=== PATIENT | male | born 1935 | race Caucasian/White ===

== ENCOUNTER → 2017-05-25 | Day surgery (SDC) | payer BC ==
[2017-05-19 11:51] VITALS: Ht 172.7 cm; Wt 81.8 kg
[~2017-05-25] VITALS: Ht 172.7 cm; Wt 81.8 kg
[~2017-05-25] MED LIST: 500ML BSS 0.3ML EPI 1:1000PF IRRIG ONE; ACETAMINOPHEN 325 MG TAB PO PRN; AMVISC PLUS 0.8ML SYRINGE INT OCU ONE; ATEN50TA8 PO; ATROPINE SULFATE 0.1 MG/ML 5ML SYR IV PRN; BSS FLUSH ONE; CETI10TA84 PO; CZR50 PO; EpHEDrine SULFATE INJ 50 MG/ML AMP IV PRN; EpINEphrine INJ 1MG/ML AMP 1 MG/ML AMP ONE; FENTANYL CITRATE INJ 50 MCG/1 ML 2 ML VIAL IV PRN; FENTANYL CITRATE INJ 50 MCG/1 ML 2 ML VIAL ONE; FLEC50TA20 PO; FLUMAZENIL 0.1 MG/1 ML 10 ML VIAL IV PRN; HYDROmorphone INJ 2 MG/ML SYR/VIAL IV PRN; HYT/2 PO; LABETALOL HCL IV 5 MG/ML 20ML IV PRN; LACTATED RINGER'S 1000ML 500 ML IV SCH; LIDOCAINE 3.5% OPH GEL PER APPLICATION CHARGE ONE; LIDOCAINE HCL 1% MPF 2 ML VIAL ONE; MEPERIDINE HCL 25 MG/ML CARP IV PRN; MIDAZOLAM HCL 1 MG/ML 2ML VIAL ONE; NALOXONE HCL 0.4 MG/1 ML VIAL/CARP IV PRN; OCUCOAT 1 ML SOLN IO ONE; ONDANSETRON INJ 2 MG/ML 2 ML VIAL IV PRN; PHENYLEPHRINE 100MCG/ML 5ML SYR IV PRN; POVIDONE-IODINE OP SOLN 30 ML BTL ONE; PROPARACAINE 0.5% OP SOLN PER DROP CHARGE OPR SCH; TOBRAMYCIN/DEXAMETHASONE OPH OINT PER APPLN CHARGE ONE
[2017-05-25] MEDS: PHENYLEPHRINE HCL 2.5% OP SOLN PER DROP CHARGE OPR SCH ×2 (09:47→09:52)
[2017-05-25] MEDS: TROPICAMIDE 1% OP SOLN PER DROP CHARGE OPR SCH ×2 (09:48→09:53)
[2017-05-25] MEDS: CYCLOPENTOLATE HCL 1% OP SOLN PER DROP CHARGE OPR SCH ×2 (09:49→09:54)
[2017-05-25] MEDS: KETOROLAC 0.5% OP SOLN PER DROP CHARGE OPR SCH ×2 (09:50→09:55)
[2017-05-25] MEDS: GATIFLOXACIN OP SOLN PER DROP CHARGE OPR SCH ×2 (09:51→09:56)
--- NOTE | 2017-05-25 10:15 | History & Physical Bridge - [place] ---
H&P Re-Evaluation Bridge Note: I have examined the patient, reviewed the History & Physical and in the interval since the performance of the History & Physical I have noted the following changes of clinical significance: Diagnosis: Right Cataract Procedure: Right Cataract Removal with Lens Implant No changes noted
--- NOTE | 2017-05-25 10:59 | Discharge Instructions-SurgCtr ---
Discharge Instructions Date of Service May 25, 2017. Visit Reason for Visit: Cataract Right Eye Discharge Discharge Diagnosis / Problem: cataract Discharge Goals Goal(s): Improve function Activity Recommendations Activity Limitations: per Instructions/Follow-up section Anesthesia . Post Anesthesia Instructions: If you have had General Anesthesia or IV Sedation: * Do not drive today. * Resume driving when surgeon permits. * Do not make important decisions or sign legal documents today. * Call surgeon for: 1. Temperature elevations greater than 101 degrees F. 2. Uncontrollable pain. 3. Excessive bleeding. 4. Persistent nausea and vomiting. 5. Medication intolerance (nausea, vomiting or rash). * For nausea and vomiting use only clear liquids such as: tea, soda, bouillon until nausea subsides, then gradually increase diet as tolerated. * If you have any concerns or questions, call your surgeon's office. If physician is unavailable and it is an emergency, call 911 or go to the nearest emergency room. . Instructions / Follow-Up Instructions / Follow-Up ACTIVITY RECOMMENDATIONS: * No strenuous lifting, jogging or running for 4 days * No swimming or yard work for 1 week. * Limited bending is permitted, such as putting on shoes. RETURN TO SCHOOL/WORK: No work until seen by physician in office. MEDICATIONS: Resume previous medications unless instructed otherwise by your surgeon. This includes eye drops for glaucoma. Zymaxid/Gatifloxacin (steven cap) - one drop every 2 hours until bedtime Nevanac/Ilevro/Prolensa/Ketorolac (corrigan cap) - one drop every 4 hours until bedtime Prednisolone/Durezol (white/pink cap, SHAKE WELL) - one drop every 2 hours until bedtime Starting tomorrow - all 3 drops every 4 hours until seen in the office Optive drops - as needed for discomfort SPECIAL CARE INSTRUCTIONS: * Wear eyeshield when sleeping, for four nights. * You may wear your own glasses or sunglasses while awake. * You may read or watch TV * You may shower and wash your face, but be gentle around the eye and pat dry. * Blurry vision and mild irritation are normal. * Call office if pain is more severe or vision becomes dark at . FOLLOW UP VISIT: Follow-up with Dr Johnston tomorrow. Diet Recommendations Home Diet: resume previous diet Pending Studies Studies pending at discharge: no Medical Emergencies . Who to Call and When: Medical Emergencies: If at any time you feel your situation is an emergency, please call 911 immediately. . Non-Emergent Contact Non-Emergency issues call your: Waiter/[employer] . . "Provider Documentation" section prepared by Benji Johnston. .
--- NOTE | 2017-05-25 10:59 | [facility] Operative Report ---
Operative Report Date of Service May 25, 2017. Operative Report 1. PREOPERATIVE DIAGNOSIS: Cataract of the right eye. 2. POSTOPERATIVE DIAGNOSIS: Same. 3. PROCEDURE: Phacoemulsification with intraocular lens implantation of the right eye. SURGEON: Dr. Benji Johnston. ANESTHESIA: Topical Lidocaine gel, 1% Non- Preserved intracameral Lidocaine, and monitored intravenous sedation. INDICATIONS FOR THE PROCEDURE: The patient is a 81 - year-old male with a history of cataract of the right eye causing significant visual impairment. The details of the proposed procedure were explained to the patient who asked appropriate questions and following discussion of all risks, benefits and alternatives agreed to have the procedure done. 4. OPERATION AND FINDINGS: DESCRIPTION OF PROCEDURE: After informed consent was obtained, the patient was brought to the Operating Room at the [facility]. The patient was placed in a supine position and then the right eye was prepped and draped in the usual sterile fashion for intraocular surgery. A drop of topical Lidocaine gel was placed in the operative eye. A wire lid speculum was then placed in the fornices. A corneal paracentesis was then created temporally. The Non-Preserved Lidocaine was then instilled into the anterior chamber. The anterior chamber was then pressurized with viscoelastic. A 2.0 mm clear corneal incision was then created temporally. A cystotome was inserted into the anterior chamber and used to create a tear in the anterior lens capsule. This capsular tear was then used to create a small flap and the flap was dragged in a counterclockwise direction in order to create a continuous curvilinear capsulorrhexis. Hydrodissection was accomplished with balanced salt solution. Phacoemulsification of the lens nucleus was then performed in a standard [id number] technique. The phaco time was 34 seconds with an average power of 7 %. The remaining cortical material was removed using irrigation aspiration. The capsular bag was then filled with viscoelastic. A Bausch [employer] Lomb MI60L +22.0 diopters lens was then loaded into the injector and injected into the capsular bag. The remaining viscoelastic was removed with the irrigation aspiration handpiece. The wound was hydrated and then checked and found to be watertight. The intraocular pressure was checked and found to be adequate. The wire lid speculum was removed and the patient's face was cleaned and dried. TobraDex ointment was placed in the inferior fornix. The patient was discharged to the Recovery Room having tolerated the procedure well. There were no complications. The patient will be seen tomorrow in the office for follow-up. I attest to the content of the Intraoperative Record and any orders documented therein. Any exceptions are noted below.
[2017-05-25 11:05] VITALS: TEMP 36.6
--- NOTE | 2017-05-25 11:10 | Anesthesia Progress Nt - [facility] ---
Anesthesia Post Op Note Date & Time May 25, 2017 at 11:10 Vital Signs Pain Intensity: 0 Vital Signs Past 12 Hours Date Time Temp Pulse Resp B/P (MAP) Pulse Ox O2 Delivery O2 Flow Rate FiO2 05/25/17 09:40 36.6 65 16 156/83 (107) 97 Room Air Notes Mental Status: alert / awake / arousable, participated in evaluation Pt Amnestic to Procedure: Yes Nausea / Vomiting: adequately controlled Pain: adequately controlled Airway Patency, RR, SpO2: stable & adequate BP & HR: stable & adequate Hydration State: stable & adequate Anesthetic Complications: no major complications apparent
[2017-05-25 11:28] VITALS: BP 156/67; PULSE 59; O2SAT 95
== END | disposition home or self-care (01) ==
LOC: X.SURG 09:09
PROVIDERS: ATTEND Ophthalmology
DX: H26.9 Unspecified cataract (principal); I48.91 Unspecified atrial fibrillation; I12.9 Hypertensive chronic kidney disease with stage 1 through stage 4 chronic kidney disease, or unspecified chronic kidney disease; N18.3 Chronic kidney disease, stage 3 (moderate); E78.5 Hyperlipidemia, unspecified; I67.2 Cerebral atherosclerosis; Z86.73 Personal history of transient ischemic attack (TIA), and cerebral infarction without residual deficits; H81.10 Benign paroxysmal vertigo, unspecified ear; K58.9 Irritable bowel syndrome, unspecified; N52.9 Male erectile dysfunction, unspecified; M10.9 Gout, unspecified; N32.3 Diverticulum of bladder; M35.3 Polymyalgia rheumatica; Z86.718 Personal history of other venous thrombosis and embolism; Z79.899 Other long term (current) drug therapy

== ENCOUNTER → 2017-06-22 | Day surgery (SDC) | payer BC ==
[2017-06-01 09:53] VITALS: Ht 172.7 cm; Wt 81.8 kg
[~2017-06-22] VITALS: Ht 172.7 cm; Wt 81.8 kg
[~2017-06-22] MED LIST changes: -FENTANYL CITRATE INJ 50 MCG/1 ML 2 ML VIAL IV PRN; -FENTANYL CITRATE INJ 50 MCG/1 ML 2 ML VIAL ONE; -FLUMAZENIL 0.1 MG/1 ML 10 ML VIAL IV PRN; -HYDROmorphone INJ 2 MG/ML SYR/VIAL IV PRN; -LABETALOL HCL IV 5 MG/ML 20ML IV PRN; -MEPERIDINE HCL 25 MG/ML CARP IV PRN; -NALOXONE HCL 0.4 MG/1 ML VIAL/CARP IV PRN; -ONDANSETRON INJ 2 MG/ML 2 ML VIAL IV PRN; -PHENYLEPHRINE 100MCG/ML 5ML SYR IV PRN; +PHENYLEPHRINE HCL 10% OP SOLN PER DROP CHARGE OPL SCH; +PROPARACAINE 0.5% OP SOLN PER DROP CHARGE OPL SCH; -PROPARACAINE 0.5% OP SOLN PER DROP CHARGE OPR SCH
[2017-06-22] MEDS: PHENYLEPHRINE HCL 2.5% OP SOLN PER DROP CHARGE OPL SCH ×2 (10:56→11:02)
[2017-06-22] MEDS: TROPICAMIDE 1% OP SOLN PER DROP CHARGE OPL SCH ×2 (10:57→11:03)
[2017-06-22] MEDS: CYCLOPENTOLATE HCL 1% OP SOLN PER DROP CHARGE OPL SCH ×2 (10:59→11:04)
[2017-06-22] MEDS: KETOROLAC 0.5% OP SOLN PER DROP CHARGE OPL SCH ×2 (11:00→11:05)
[2017-06-22] MEDS: GATIFLOXACIN OP SOLN PER DROP CHARGE OPL SCH ×2 (11:01→11:11)
--- NOTE | 2017-06-22 11:30 | History & Physical Bridge - [place] ---
H&P Re-Evaluation Bridge Note: I have examined the patient, reviewed the History & Physical and in the interval since the performance of the History & Physical I have noted the following changes of clinical significance: No changes noted
--- NOTE | 2017-06-22 12:11 | [facility] Operative Report ---
Operative Report Date of Service Jun 22, 2017. Operative Report 1. PREOPERATIVE DIAGNOSIS: Cataract of the left eye. 2. POSTOPERATIVE DIAGNOSIS: Same. 3. PROCEDURE: Phacoemulsification with intraocular lens implantation of the left eye. SURGEON: Dr. Benji Johnston. ANESTHESIA: Topical Lidocaine gel, 1% Non- Preserved intracameral Lidocaine, and monitored intravenous sedation. INDICATIONS FOR THE PROCEDURE: The patient is a 81 - year-old male with a history of cataract of the left eye causing significant visual impairment. The details of the proposed procedure were explained to the patient who asked appropriate questions and following discussion of all risks, benefits and alternatives agreed to have the procedure done. 4. OPERATION AND FINDINGS: DESCRIPTION OF PROCEDURE: After informed consent was obtained, the patient was brought to the Operating Room at the [facility]. The patient was placed in a supine position and then the left eye was prepped and draped in the usual sterile fashion for intraocular surgery. A drop of topical Lidocaine gel was placed in the operative eye. A wire lid speculum was then placed in the fornices. A corneal paracentesis was then created temporally. The Non-Preserved Lidocaine was then instilled into the anterior chamber. The anterior chamber was then pressurized with viscoelastic. A 2.0 mm clear corneal incision was then created temporally. A cystotome was inserted into the anterior chamber and used to create a tear in the anterior lens capsule. This capsular tear was then used to create a small flap and the flap was dragged in a counterclockwise direction in order to create a continuous curvilinear capsulorrhexis. Hydrodissection was accomplished with balanced salt solution. Phacoemulsification of the lens nucleus was then performed in a standard [id number] technique. The phaco time was 35 seconds with an average power of 9 %. The remaining cortical material was removed using irrigation aspiration. The capsular bag was then filled with viscoelastic. A Bausch & Lomb MI60L +22.0 diopters lens was then loaded into the injector and injected into the capsular bag. The remaining viscoelastic was removed with the irrigation aspiration handpiece. The wound was hydrated and then checked and found to be watertight. The intraocular pressure was checked and found to be adequate. The wire lid speculum was removed and the patient's face was cleaned and dried. TobraDex ointment was placed in the inferior fornix. The patient was discharged to the Recovery Room having tolerated the procedure well. There were no complications. The patient will be seen tomorrow in the office for follow-up. I attest to the content of the Intraoperative Record and any orders documented therein. Any exceptions are noted below.
--- NOTE | 2017-06-22 12:11 | Discharge Instructions-SurgCtr ---
Discharge Instructions Date of Service Jun 22, 2017. Visit Reason for Visit: Cataract Left Eye Discharge Discharge Diagnosis / Problem: cataract Discharge Goals Goal(s): Improve function Activity Recommendations Activity Limitations: per Instructions/Follow-up section Anesthesia . Post Anesthesia Instructions: If you have had General Anesthesia or IV Sedation: * Do not drive today. * Resume driving when surgeon permits. * Do not make important decisions or sign legal documents today. * Call surgeon for: 1. Temperature elevations greater than 101 degrees F. 2. Uncontrollable pain. 3. Excessive bleeding. 4. Persistent nausea and vomiting. 5. Medication intolerance (nausea, vomiting or rash). * For nausea and vomiting use only clear liquids such as: tea, soda, bouillon until nausea subsides, then gradually increase diet as tolerated. * If you have any concerns or questions, call your surgeon's office. If physician is unavailable and it is an emergency, call 911 or go to the nearest emergency room. . Instructions / Follow-Up Instructions / Follow-Up ACTIVITY RECOMMENDATIONS: * No strenuous lifting, jogging or running for 4 days * No swimming or yard work for 1 week. * Limited bending is permitted, such as putting on shoes. RETURN TO SCHOOL/WORK: No work until seen by physician in office. MEDICATIONS: Resume previous medications unless instructed otherwise by your surgeon. This includes eye drops for glaucoma. Zymaxid/Gatifloxacin (steven cap) - one drop every 2 hours until bedtime Nevanac/Ilevro/Prolensa/Ketorolac (corrigan cap) - one drop every 4 hours until bedtime Prednisolone/Durezol (white/pink cap, SHAKE WELL) - one drop every 2 hours until bedtime Starting tomorrow - all 3 drops every 4 hours until seen in the office Optive drops - as needed for discomfort SPECIAL CARE INSTRUCTIONS: * Wear eyeshield when sleeping, for four nights. * You may wear your own glasses or sunglasses while awake. * You may read or watch TV * You may shower and wash your face, but be gentle around the eye and pat dry. * Blurry vision and mild irritation are normal. * Call office if pain is more severe or vision becomes dark at . FOLLOW UP VISIT: Follow-up with Dr Johnston tomorrow. Diet Recommendations Home Diet: resume previous diet Procedures Procedures Performed: Left Cataract Phacoemulsification With Intraocular Lens Implant Pending Studies Studies pending at discharge: no Medical Emergencies . Who to Call and When: Medical Emergencies: If at any time you feel your situation is an emergency, please call 911 immediately. . Non-Emergent Contact Non-Emergency issues call your: Tomato Pul[employer] Operator . . "Provider Documentation" section prepared by Benji Johnston. .
[2017-06-22 12:13] VITALS: TEMP 36.3
--- NOTE | 2017-06-22 12:35 | Anesthesia Progress Nt - [facility] ---
Anesthesia Post Op Note Date & Time Jun 22, 2017 at 12:35 Vital Signs Pain Intensity: 0 Vital Signs Past 12 Hours Date Time Temp Pulse Resp B/P (MAP) Pulse Ox O2 Delivery O2 Flow Rate FiO2 06/22/17 12:13 36.3 55 18 149/76 (100) 95 Room Air 06/22/17 10:46 36.8 61 22 160/82 (108) 97 Room Air Notes Mental Status: alert / awake / arousable, participated in evaluation Pt Amnestic to Procedure: Yes Nausea / Vomiting: adequately controlled Pain: adequately controlled Airway Patency, RR, SpO2: stable & adequate BP & HR: stable & adequate Hydration State: stable & adequate Anesthetic Complications: no major complications apparent
[2017-06-22 12:40] VITALS: BP 148/67; PULSE 56; O2SAT 96
== END | disposition home or self-care (01) ==
LOC: X.SURG 10:32
PROVIDERS: ATTEND Ophthalmology
DX: H26.9 Unspecified cataract (principal); H53.8 Other visual disturbances; Z96.1 Presence of intraocular lens; I12.9 Hypertensive chronic kidney disease with stage 1 through stage 4 chronic kidney disease, or unspecified chronic kidney disease; N18.3 Chronic kidney disease, stage 3 (moderate)

== ENCOUNTER 2022-12-15 15:44 | Inpatient (IN) ==
[2022-12-15] MEDS ORDERED: SODIUM CHLORIDE 0.9% 1000ML 1,000 ML IV ONE (18:42)
[2022-12-15 18:47] LABS: Basophils # (auto) 0.02 K/uL (0-0.2); Basophils % (auto) 0.7 %; Eosinophils # (auto) 0.01 K/uL (0-0.50); Eosinophils % (auto) 0.3 %; Hematocrit (blood only) 45.8 % (42.0-52.0); Hemoglobin 16.6 g/dl (14.0-18.0); Lymphocytes # (auto) 1.05 K/uL (1.2-3.4); Lymphocytes % (auto) 35.5 %; Mean Corpuscular Hemoglobin 34.4 pg (25.0-34.0); Mean Corpuscular Hgb Conc 36.2 g/dL (32.0-36.0); Mean Corpuscular Volume 94.8 fL (80.0-100.0); Mean Platelet Volume 9.4 fL (9.4-12.4); Monocytes # (auto) 0.15 K/uL (0.11-0.59); Monocytes % (auto) 5.1 %; Neutrophils # (auto) 1.73 K/uL (1.40-6.50); Neutrophils % (auto) 58.4 %; Platelet Count 258 K/uL (130-400); RDW Coefficient of Variation 14.6 % (11.5-14.5); Red Blood Count 4.83 M/uL (4.70-6.10); White Blood Count 2.96 K/ul (4.8-10.8)
[2022-12-15 19:05] LABS: Base Excess VBG -7.5 mEq/L; HCO3 VBG 19 mmol/L; Oxygen Saturation VBG 60.8 %; PCO2 VBG 40 mmHg (38-50); PO2 VBG 39 mmHg; pH VBG 7.28 (7.36-7.41)
[2022-12-15 19:11] LABS: Albumin Level 4.7 gm/dl (3.4-5.0); BUN Creatinine Ratio 29.5 (10-20); Bilirubin,Total 1.3 mg/dl (0.2-1.0); Creatinine Clr Calc Pharmacy 32.5 ml/min; Est GFR (African American) 48.2 ml/min; Est GFR (Non-African American) 41.6 ml/min; Globulin 2.3 gm/dl (2.5-4.0); Magnesium 2.4 mg/dl (1.7-2.4); Phosphorus 4.3 mg/dl (2.5-4.9); Potassium 5.2 mmol/L (3.5-5.1)
[2022-12-15 19:25] LABS: Influenza A virus by PCR Negative (Neg); Influenza B virus by PCR Negative (Neg); RSV by PCR Negative (Neg); SARS CoV2 RNA(COVID-19) Ceph NEGATIVE (Negative)
[2022-12-15] MEDS ORDERED: NovoLIN-R INSULIN PER UNIT CHARGE SC STA (20:10)
--- NOTE | 2022-12-15 21:14 | Emergency Department Note ---
Impression & Plan Acute hyperglycemia, Ketoacidosis, Acute dehydration, Hyperkalemia ED Provider Note INFORMANT: Patient ED PROVIDER(S): Amador Mendez DO CHIEF COMPLAINT: Hyperglycemia, weight loss, weakness PLAN: Disposition: Admission Outpatient prescription management: none Discussion with: I spoke with the hospitalist, who will see the patient for admission/observation and further evaluation and consultation. MEDICAL DECISION MAKING: This is a 87-year-old male who presents to the ED with a chief complaint of increasing weakness, fatigue, difficulty walking, hyperglycemia. The patient was diagnosed with diabetes type 2 in October. He was originally placed on metformin and then recently about couple weeks ago placed on Jardiance. The patient continues losing weight. He is lost about 20 to 30 pounds over the past month or so. He has become increasingly weak. Family brought him in because of concerns about that. Over the past couple of days he has had nausea and vomiting as well. The patient's physical exam does reveal a smell of ketones on the patient's breath. This is concerning for dehydration. Otherwise his exam reveals no focal deficits. He is venous blood gas shows an acidosis with a pH of 7.28. CO2 is 40. Anion gap is 20. Bicarb 17. These are suggestive of a metabolic acidosis. His white blood cell count is 2.96. Glucose is 307. BUN is 44 suggesting dehydration. Creatinine is 1.49. Potassium is 5.2. EKG shows a sinus rhythm. The patient was given IV fluids during his ED stay. He was also given 4 units of subcu insulin. I did speak with hospitalist about the patient for further inpatient evaluation and care. Triage Nursing notes reviewed. Vital Signs: reviewed Prior /Outside records reviewed: none Differential diagnosis: Differential includes dehydration, electrolyte abnormality, generalized weakness, HH NK, infection, other. Diagnostics, as interpreted by me: 12 lead ECG: Sinus rhythm rate of 74 with a first-degree AV block. Right bundle branch block. No ST elevation. No PVCs. Normal QTc. Cardiac Monitoring ordered: none Medical decision rules: none Imaging studies: none Procedures: none. Critical care: none. HPI: See MDM above. PAST MEDICAL HISTORY: See Below PAST SURGICAL HISTORY: See Below SOCIAL HISTORY: See Below HOME MEDICATIONS: See Below ALLERGIES: See Below VITALS: See Below PHYSICAL EXAMINATION: See MDM for positive findings otherwise unremarkable. CONSTITUTIONAL/VITAL SIGNS: Reviewed GENERAL:done as appropriate INTEGUMENTARY: done as appropriate HEAD: done as appropriate EYES: done as appropriate RESPIRATORY: done as appropriate CARDIOVASCULAR:done as appropriate GI/ABDOMEN:done as appropriate EXTREMITIES: done as appropriate NEUROLOGICAL: done as appropriate PSYCHIATRIC:done as appropriate MUSCULOSKELETAL:done as appropriate TRIAGE NURSING DOCUMENTATION REVIEWED. 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) Diverticulitis (07/23/14) Diverticulitis DM (diabetes mellitus) DVT (deep venous thrombosis) H/O prostatitis HTN (hypertension) Incomplete emptying of bladder (11/03/14) Left leg DVT Postoperative urethral stricture Sensorineural hearing loss of both ears Urinary retention UTI (lower urinary tract infection) UTI (lower urinary tract infection) Surgical History History of back surgery History of knee surgery History of surgery Stomach, skin S/P TURP Family History Other Family history non-contributory Heart disease No family history of adverse response to anesthesia No family history of bleeding disorder Denies family history of Ovarian cancer Prostate cancer Myocardial infarction Breast cancer Colorectal cancer Social History Smoking Status: Never smoker Second Hand Exposure: No; Hx Alcohol Use: No Hx Substance Use: No Preferred Language: Slovak Visual Impairment: No Limitations Hearing Ability: Hard of Hearing marital status: Current Living Situation: Spouse current occupational status: retired How many Children do You have: 3 Feels Safe at Home: Yes Childhood Exposure to Second-Hand Smoke: No Dental Care, Regularly: Yes Physical Activity Frequency: 3-4 Times per Week Seatbelt Use: always Sunscreen Use: No Allergies Allergies Allergy/AdvReac Type Severity Reaction Status Date / Time Penicillins Allergy Severe HIVES Verified 12/15/22 19:42 Sulfa (Sulfonamide Allergy Severe RASH Verified 12/15/22 19:42 Antibiotics) tree and shrub pollen Allergy Unknown Verified 12/15/22 19:42 Home Meds Home Medications Medication Instructions Recorded Confirmed azelastine 137 mcg (0.1 %) nasal 2 spray intranasal BID PRN 07/10/19 12/15/22 spray aerosol Congestion cetirizine 10 mg tablet 10 mg PO DAILY PRN Allergy Symptoms 07/10/19 12/15/22 flecainide 100 mg tablet 100 mg PO Q2D PRN Cardiac 07/10/19 12/15/22 Arrhythmia losartan 25 mg tablet 25 mg PO QAM 07/10/19 12/15/22 atenolol 25 mg tablet 25 mg PO QAM 11/20/21 12/15/22 valacyclovir 1 gram tablet 1,000 mg PO BID 11/20/21 12/15/22 metformin 500 mg tablet,extended 1,000 tab PO QAM 09/10/22 12/15/22 release 24 hr empagliflozin 10 mg tablet 10 mg PO DAILY 12/15/22 12/15/22 (Jardiance) hydroxyzine HCl 25 mg tablet 25 mg PO TID PRN Itching 12/15/22 12/15/22 ketoconazole 2 % shampoo 1 applic topical .Q3DAYS 12/15/22 12/15/22 naproxen sodium 220 mg tablet 220 mg PO Q12H PRN Pain 12/15/22 12/15/22 (Aleve) terazosin 2 mg capsule 4 mg PO HS 12/15/22 12/15/22 Results & Data (ED) Vital Signs Vital Signs - 24 hr 12/15/22 16:15 12/15/22 18:39 12/15/22 18:40 Temperature 36.6 C Temperature Source Temporal Artery Scan Pulse Rate 81 76 Pulse Rate [Apical] 76 Pulse Rhythm [Apical] Regular Pulse Strength [Apical] Normal Respiratory Rate 18 17 Respiratory Effort / Characteristics Non-Labored Spontaneous Non-Labored Respiratory Depth Normal Normal Respiratory Pattern Regular Regular Blood Pressure 121/58 L Blood Pressure [Right Arm] 144/69 H Blood Pressure Mean 79 Blood Pressure Mean [Right Arm] 94 Blood Pressure Position Sitting Pulse Oximetry 98 99 Oxygen Delivery Method Room Air Room Air Sepsis Recent Fever Within 48 Hours No Sepsis New/Unexplained Change in Mental Status N/A Sepsis Action Taken by Nursing No Action Required Laboratory Data 12/15/22 18:15 12/15/22 18:15 Lab Results 12/15/22 12/15/22 12/15/22 Range/Units 18:15 18:15 18:57 WBC 2.96 L (4.8-10.8) K/ul RBC 4.83 (4.70-6.10) M/uL Hgb 16.6 (14.0-18.0) g/dl Hct 45.8 (42.0-52.0) % MCV 94.8 (80.0-100.0) fL MCH 34.4 H (25.0-34.0) pg MCHC 36.2 H (32.0-36.0) g/dL RDW Std Deviation 50.0 H (36.4-46.3) fL RDW Coeff of Nam 14.6 H (11.5-14.5) % Plt Count 258 (130-400) K/uL MPV 9.4 (9.4-12.4) fL Immature Gran % (Auto) 0.0 % Neut % (Auto) 58.4 % Lymph % (Auto) 35.5 % [place] % (Auto) 5.1 % Eos % (Auto) 0.3 % Baso % (Auto) 0.7 % Neut # (Auto) 1.73 (1.40-6.50) K/uL Lymph # (Auto) 1.05 L (1.2-3.4) K/uL [place] # (Auto) 0.15 (0.11-0.59) K/uL Eos # (Auto) 0.01 (0-0.50) K/uL Baso # (Auto) 0.02 (0-0.2) K/uL Immature Gran # (Auto) 0.00 L (0.01-0.20) K/uL VBG pH 7.28 L (7.36-7.41) VBG pCO2 40 (38-50) mmHg VBG pO2 39 mmHg VBG HCO3 19 mmol/L VBG O2 Saturation 60.8 % VBG Base Excess -7.5 mEq/L Sodium 135 L (136-145) mmol/L Potassium 5.2 H (3.5-5.1) mmol/L Chloride 98 (98-107) mmol/L Carbon Dioxide 17 L (21-32) mmol/L Anion Gap 20 H (3-11) BUN 44 H (6-23) mg/dl Creatinine 1.49 H (0.6-1.4) mg/dl Est Cr Clr Drug Dosing 32.5 ml/min Est GFR ( Amer) 48.2 ml/min Est GFR (Non-Af Amer) 41.6 ml/min BUN/Creatinine Ratio 29.5 H (10-20) Glucose 307 H* (70-99(Fasting)) mg/dl Calcium 10.0 (8.5-10.1) mg/dl Phosphorus 4.3 (2.5-4.9) mg/dl Magnesium 2.4 (1.7-2.4) mg/dl Total Bilirubin 1.3 H (0.2-1.0) mg/dl AST 15 (13-39) U/L ALT 18 (7-52) U/L Alkaline Phosphatase 96 (34-104) U/L Total Protein 7.0 (6.0-8.3) gm/dl Albumin 4.7 (3.4-5.0) gm/dl Globulin 2.3 L (2.5-4.0) gm/dl Albumin/Globulin Ratio 2.0 (0.9-2) SARS-CoV-2 (PCR) (Negative) Influenza Type A (PCR) (Neg) Influenza Type B (PCR) (Neg) RSV (RT-PCR) (Neg) 12/15/22 Range/Units Unknown WBC (4.8-10.8) K/ul RBC (4.70-6.10) M/uL Hgb (14.0-18.0) g/dl Hct (42.0-52.0) % MCV (80.0-100.0) fL MCH (25.0-34.0) pg MCHC (32.0-36.0) g/dL RDW Std Deviation (36.4-46.3) fL RDW Coeff of Nam (11.5-14.5) % Plt Count (130-400) K/uL MPV (9.4-12.4) fL Immature Gran % (Auto) % Neut % (Auto) % Lymph % (Auto) % [place] % (Auto) % Eos % (Auto) % Baso % (Auto) % Neut # (Auto) (1.40-6.50) K/uL Lymph # (Auto) (1.2-3.4) K/uL [place] # (Auto) (0.11-0.59) K/uL Eos # (Auto) (0-0.50) K/uL Baso # (Auto) (0-0.2) K/uL Immature Gran # (Auto) (0.01-0.20) K/uL VBG pH (7.36-7.41) VBG pCO2 (38-50) mmHg VBG pO2 mmHg VBG HCO3 mmol/L VBG O2 Saturation % VBG Base Excess mEq/L Sodium (136-145) mmol/L Potassium (3.5-5.1) mmol/L Chloride (98-107) mmol/L Carbon Dioxide (21-32) mmol/L Anion Gap (3-11) BUN (6-23) mg/dl Creatinine (0.6-1.4) mg/dl Est Cr Clr Drug Dosing ml/min Est GFR ( Amer) ml/min Est GFR (Non-Af Amer) ml/min BUN/Creatinine Ratio (10-20) Glucose (70-99(Fasting)) mg/dl Calcium (8.5-10.1) mg/dl Phosphorus (2.5-4.9) mg/dl Magnesium (1.7-2.4) mg/dl Total Bilirubin (0.2-1.0) mg/dl AST (13-39) U/L ALT (7-52) U/L Alkaline Phosphatase (34-104) U/L Total Protein (6.0-8.3) gm/dl Albumin (3.4-5.0) gm/dl Globulin (2.5-4.0) gm/dl Albumin/Globulin Ratio (0.9-2) SARS-CoV-2 (PCR) NEGATIVE (Negative) Influenza Type A (PCR) Negative (Neg) Influenza Type B (PCR) Negative (Neg) RSV (RT-PCR) Negative (Neg) Administered Medications Discontinued Medications Sodium Chloride (Nss 1000ml) 1,000 mls @ 999 mls/hr IV .Q1H1M ONE Stop: 12/15/22 19:42 Last Infusion: 12/15/22 19:39 Dose: 0 mls/hr Documented By: Admin: 12/15/22 18:57 Dose: 999 mls/hr Documented By: RSL Insulin Human Regular (Novolin-R Insulin Per Unit Charge) 4 units SC NOW STA Stop: 12/15/22 20:11 Last Admin: 12/15/22 20:30 Dose: 4 units Documented By: ML Co-signed By: KMF Discharge Plan Visit Data Chief Complaint: Illness Stated Complaint: DIABETES,LOST 40LBS,CAN'T EAT,SLEEP,NAUSEA,VOMIT ED Provider: Amador Mendez Discharge Problem: Acute hyperglycemia, Ketoacidosis, Acute dehydration, Hyperkalemia Patient Disposition: Being Evaluated by Hospitalist Forms Stand Alone Forms: [facility] Prescriptions Prescriptions: No Action metformin 500 mg tablet extended release 24 hr 1,000 tab PO QAM cetirizine 10 mg Tablet 10 mg PO DAILY PRN (Reason: Allergy Symptoms) losartan 25 mg tablet 25 mg PO QAM flecainide 100 mg tablet 100 mg PO Q2D PRN (Reason: Cardiac Arrhythmia) azelastine 137 mcg (0.1 %) aerosol,spray 2 spray intranasal BID PRN (Reason: Congestion) atenolol 25 mg tablet 25 mg PO QAM valacyclovir 1 gram tablet 1,000 mg PO BID ketoconazole 2 % shampoo 1 applic TOPICAL .Q3DAYS Rx Instructions: START 12/09/2022 terazosin 2 mg capsule 4 mg PO HS naproxen sodium [Aleve] 220 mg Tablet 220 mg PO Q12H PRN (Reason: Pain) hydroxyzine HCl 25 mg tablet 25 mg PO TID PRN (Reason: Itching) Jardiance 10 mg tablet 10 mg PO DAILY Referrals Referrals: Awilda Baron DO [Primary Care Provider] -
[2022-12-15] MEDS ORDERED: ALUMINUM/MAGNESIUM/SIMETH (MAALOX MAX) 30 ML UDC PO STA (21:37)
[2022-12-16] MEDS ORDERED: PHARMACY GLYCEMIC MGMT CONSULT PRN (00:03)
[2022-12-16] MEDS ORDERED: STAT IV Infusion **Titration per Protocol STA (00:03)
[2022-12-16] MEDS ORDERED: INSULIN REGULAR 250 UNITS in SODIUM CHLORIDE 0.9% 247.5 ML IV SCH ×2 (00:03→00:30)
[2022-12-16] MEDS ORDERED: AZELASTINE HCL 0.1% NASAL 200 SPRAYS/27,400 MCG BTL PRN (00:03)
[2022-12-16] MEDS ORDERED: ONDANSETRON INJ 2 MG/ML 2 ML VIAL IV PRN (00:03)
[2022-12-16] MEDS ORDERED: DKA GOAL RANGE 150-250 mg/dl ONE (00:03)
[2022-12-16] MEDS ORDERED: NITROGLYCERIN SL 0.4 MG/TAB TAB SL PRN (00:03)
[2022-12-16] MEDS ORDERED: SODIUM CHLORIDE 0.9% 1000ML 1,000 ML IV SCH (00:03)
[2022-12-16] MEDS ORDERED: FLECAINIDE ACETATE 100 MG TABLET PO PRN (00:03)
--- NOTE | 2022-12-16 00:26 | History and Physical Report ---
DATE OF ADMISSION: 12/15/2022. CHIEF COMPLAINT: Weakness, nausea. HISTORY OF PRESENT ILLNESS: This is an 87-year-old male with past medical history significant for history of hyperlipidemia, allergic rhinitis, history of gout, hypertension, history of near syncope, history of bradycardia, right bundle-branch block, first-degree AV block, history of diverticulum of bladder, BPH, degenerative disk disease, bilateral sensorineural hearing loss, balance problems. The patient says that he was diagnosed with diabetes a couple of months ago, he was taking metformin, but it does not agree with him, he was not tolerating it well. So he stopped it and three days back, he was started on Jardiance. For the last two days, he is feeling very weak and tired, he was not even able to get up from the bed and walk because of weakness. He had one episode of nausea, vomiting yesterday. That is the reason he came here. He lives with his . Denies any chest pain or shortness of breath. He is complaining of some heartburn. Denies any headache. No blurred visions. Has some runny nose and sore throat. No cough, no fevers. Micturating fine. No swelling in the legs, hemodynamically stable. ALLERGIES: PENICILLIN, SULFA ANTIBIOTICS, TREE AND SHRUB POLLEN. PAST MEDICAL HISTORY: As mentioned above. PAST SURGICAL HISTORY: Colonoscopy, left knee arthroscopy, TURP, lumbar diskectomy. MEDICATIONS: The patient is on atenolol 25 mg p.o. a.m., azelastine 2 sprays intranasal b.i.d. p.r.n., cetirizine 10 mg p.o. daily p.r.n., Jardiance 10 mg p.o. daily, flecainide 100 mg p.o. p.r.n. for cardiac arrhythmia, hydroxyzine 25 mg p.o. t.i.d. p.r.n., losartan 25 mg p.o. a.m., metformin 1000 mg p.o. a.m.,naproxen 220mmg p.o. b.i.d. p.r.n., terazosin 4 mg p.o. at bedtime, valacyclovir 1000 mg p.o. b.i.d. FAMILY HISTORY: Significant for mother has diabetes; father has sepsis. SOCIAL HISTORY: , lives with his . No smoking. Alcohol occasional. No drug use. REVIEW OF SYSTEMS: As per HPI. Rest of review of systems is negative. PHYSICAL EXAMINATION: GENERAL: The patient is alert and oriented, not in acute distress. VITAL SIGNS: Temperature 36.6, pulse 81, respiratory rate 17, blood pressure 144/69, oxygen 99% on room air. HEENT: Pupils equal, round and reactive to light. Oral mucosa dry. NECK: No JVD, no neck masses. CARDIOVASCULAR: S1 and S2 heard. Regular rate and rhythm. No murmur, no gallop. RESPIRATORY SYSTEM: Normal AP diameter. No accessory muscle use. No wheezing, no crackles. ABDOMEN: Soft, bowel sounds present, nontender, no distention. CENTRAL NERVOUS SYSTEM: Alert and oriented, somewhat hard of hearing. Speech is clear. No facial droop. Obeys simple commands. Insight is okay. Moves extremities. EXTREMITIES: No edema, no erythema. LABORATORY DATA: WBC 2.9, hemoglobin 16.6, hematocrit 45.8, platelets 258. Venous blood with pH of 7.28, pCO2 of 40. Sodium 135, potassium 5.2, chloride 98, CO2 of 17, BUN 44, creatinine 1.49, serum glucose 307, calcium 10, phosphorus 4.3, magnesium 2.4, total bilirubin 1.3, AST 15, ALT 18, alkaline phosphatase 96. SARS-CoV-2 PCR negative. Influenza A and B PCR negative. RSV PCR negative. EKG: Sinus rhythm with sinus arrhythmia with first-degree AV block at a rate of 74, right bundle-branch block. ASSESSMENT AND PLAN: This is an 87-year-old male who presents with weakness and hyperglycemia. 1. Weakness: The patient's seem to have mild DKA. Could not tolerate metformin, recently started on Jardiance. We will start him on DKA protocol with IV insulin, fluids as per DKA protocol. Follow HbA1c levels. Glycemic pharmacy consult to adjust his insulin regimen. Follow HbA1c levels. Closely monitor in the tele floor. Weakness could be from the above. Will do PT, OT when stable. 2. History of paroxysmal atrial fibrillation: Single event in 2016 after he was on steroids for polymyalgia rheumatica, will monitor. 3. 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 4. History of [id number] aortic insufficiency: Will monitor for volume overload. 5. History of labile hypertension: Will monitor the blood pressure. Continue his atenolol, losartan, terazosin. 6. History of surgical repair of colovesical fistula in October 2014. 7. Deep venous thrombosis prophylaxis: Heparin subcutaneously. DISPOSITION: Closely monitor in the tele floor. PT/OT prior to discharge. Social service to help with discharge planning. Job ID: [id number] [facility]ENTERJose
[2022-12-16] MEDS ORDERED: D5W AND 1/2NSS 1,000 ML IV SCH (00:30)
[2022-12-16 00:45] LABS: BUN Creatinine Ratio 27.1 (10-20); Calcium 9.4 mg/dl (8.5-10.1); Creatinine Clr Calc Pharmacy 37.5 ml/min; Est GFR (African American) 57.4 ml/min; Est GFR (Non-African American) 49.5 ml/min; Magnesium 2.2 mg/dl (1.7-2.4); Phosphorus 3.9 mg/dl (2.5-4.9); Potassium 4.6 mmol/L (3.5-5.1)
[2022-12-16] MEDS ORDERED: CARBOHYDRATES FOR HYPOGLYCEMIA PO PRN (00:45)
[2022-12-16] MEDS ORDERED: GLUCOSE 10 TAB/TUBE PO PRN (00:45)
[2022-12-16] MEDS ORDERED: GLUCOSE 40% GEL 15 GM TUBE PO PRN (00:45)
[2022-12-16] MEDS ORDERED: DEXTROSE 50% 50 ML SYRINGE IV PRN (00:45)
[2022-12-16] MEDS ORDERED: GLUCAGON FOR INJ 1 MG VIAL IM PRN (00:45)
[2022-12-16] MEDS ORDERED: PENDING D5 1/2NS+20mEq KCL IVF SCH (02:00)
[2022-12-16] MEDS ORDERED: PENDING 1/2NSS+20mEq KCL IVF SCH (02:00)
[2022-12-16] MEDS: D5W AND 1/2NSS + 20MEQ KCL 20 MEQ/1,000 ML BAG IV SCH ×2 (02:25→07:54)
[2022-12-16 05:59] LABS: BUN Creatinine Ratio 26.9 (10-20); Calcium 8.7 mg/dl (8.5-10.1); Creatinine Clr Calc Pharmacy 40.6 ml/min; Est GFR (African American) 63.3 ml/min; Est GFR (Non-African American) 54.6 ml/min; Magnesium 2.1 mg/dl (1.7-2.4); Phosphorus 2.4 mg/dl (2.5-4.9); Potassium 3.7 mmol/L (3.5-5.1)
[2022-12-16 06:54] LABS: Appearance Urine Clear (Clear); Bilirubin Urine Negative (Negative); Blood Urine Negative (Negative); Color Urine Yellow; Glucose Urine UA 3+ (Negative); Ketones Urine 3+ (Negative); Leukocyte Esterase Urine Negative (Negative); Nitrite Urine Negative (Negative); Protein Urine Negative (Negative); Specific Gravity Urine 1.031 (1.000-1.030); Urobilinogen Urine Negative (Negative)
[2022-12-16] MEDS ORDERED: INSULIN ASPART PER UNIT SC SCH ×2 (07:30→14:00)
[2022-12-16] MEDS: HEPARIN SOD 5,000 UNIT/0.5 ML VIAL SQ SCH ×2 (08:02→20:19)
[2022-12-16] MEDS: ATENOLOL 25 MG TABLET PO SCH (08:02)
[2022-12-16] MEDS: LOSARTAN POTASSIUM 25 MG TAB PO SCH (08:03)
[2022-12-16] MEDS: valACYclovir HCL 500 MG TABLET PO SCH ×2 (08:03→20:18)
[2022-12-16] MEDS ORDERED: POTASSIUM PHOS 3 MMOL/1 ML INFUSION IV STA (08:10)
[2022-12-16] MEDS ORDERED: LANTUS PER UNIT CHARGE SQ ONE (08:15)
[2022-12-16] MEDS ORDERED: POTASSIUM PHOSPHATE 15 MMOL in SODIUM CHLORIDE 0.9% 250 ML IV ONE (08:30)
[2022-12-16] MEDS: CALCIUM CARBONATE 500 MG CHEWABLE TAB PO PRN ×2 (08:38→17:07)
[2022-12-16 08:41] LABS: Estimated Average Glucose 223 mg/dl; Hemoglobin A1C 9.4 % (4.5-5.6)
[2022-12-16] MEDS: INSULIN ASPART PER UNIT SC SCH ×5 (08:44→23:28)
[2022-12-16 08:49] LABS: BUN Creatinine Ratio 24.5 (10-20); Calcium 8.7 mg/dl (8.5-10.1); Est GFR (African American) 69.6 ml/min; Magnesium 2.1 mg/dl (1.7-2.4); Phosphorus 2.1 mg/dl (2.5-4.9); Potassium 4.1 mmol/L (3.5-5.1)
--- NOTE | 2022-12-16 09:08 | Pharmacy Report ---
Pharmacy Glycemic Short Note 2 - Date of Service December 16, 2022 - Glycemic Short BSG Results (Last 24 hours): 12/15/22 12/15/22 12/16/22 18:15 22:25 00:13 Glucose 307 H* POC Glucose 202 H 171 H 12/16/22 12/16/22 12/16/22 00:14 01:45 02:41 Glucose 178 H POC Glucose 161 H 126 H 12/16/22 12/16/22 12/16/22 03:01 03:20 04:19 Glucose POC Glucose 124 H 176 H 176 H 12/16/22 12/16/22 12/16/22 04:21 05:20 06:06 Glucose 161 H POC Glucose 190 H 172 H 12/16/22 12/16/22 08:01 08:18 Glucose 125 H POC Glucose 132 H OUTPATIENT ANTIDIABETIC REGIMEN: * Metformin 1gm PO daily * empagliflozin 10mg PO daily HbA1C: 9.4% (12/15/22) ASSESSMENT: * Patient is an 87 year old male who presented to the ED with weakness and an episode of N/V. History of recent type 2 DM diagnosis on metformin, which he was reportedly not tolerating and was switched to empagliflozin. Initial labs consistent with mild DKA - pH-7.28, AG-20, bicarb-17, glucose-307. Patient started on an insulin drip per DKA protocol around midnight. * Insulin drip running consistently at 4 unit/hr this AM. D51/2 NS w/ 20mEq KCl running @ 200ml/hr. Labs this AM - pH-7.39, AG-7, bicarb-25 and BSGs within goal range. Will begin to transition to SQ. * Lantus 20 units SQ X 1 (~0.3unit/kg, ~wt/stress 3 with BID dosing). Novolog ACHS with carb ratio to cover breakfast. Diet ordered. IVF to d/c once he eats. Overlap insulin drip with Lantus for at least 2 hours. Novolog overnight checks tonight and HS Lantus scale. PLAN FOR INPATIENT GLYCEMIC CONTROL: * Hold outpatient oral diabetes medications * Basal insulin * Lantus 20 units SQ X 1 + HS scale if BSG >200mg/dL. * Bolus insulin * NovoLog per scale ACHS or Q6hrs while NPO * Goal Range: Low 110 mg/dL - High 140 mg/dL * Correction Factor: 35 mg/dL/unit * Nutritional / Prandial insulin per carb ratio of 1 unit per 15 grams CHO consumed
[2022-12-16] MEDS ORDERED: POT PHOSPHATE MONOBASIC W/ SOD TAB PO ONE (09:18)
[2022-12-16] MEDS: POLYETHYLENE (MIRALAX) 17 GM PACK PO PRN (09:49)
--- NOTE | 2022-12-16 10:11 | Electrocardiogram Report ---
Test Reason : Blood Pressure : / mmHG Vent. Rate : 074 BPM Atrial Rate : 074 BPM P-R Int : 222 ms QRS Dur : 116 ms QT Int : 438 ms P-R-T Axes : 049 078 051 degrees QTc Int : 486 ms Poor data quality, interpretation may be adversely affected Sinus rhythm with sinus arrhythmia with 1st degree A-V block Right bundle branch block Abnormal ECG When compared with ECG of 27-DEC-2021 15:27, QRS duration has decreased Confirmed by Severiano Wagner ([id number]) on 12/16/2022 10:11:25 AM Referred By: REFERRED SELF Confirmed By:Diony Wagner
[2022-12-16] MEDS ORDERED: CHOLECALCIFEROL 5,000 UNITS 125 MCG TAB PO SCH (11:15)
[2022-12-16 12:21] LABS: BUN Creatinine Ratio 23.8 (10-20); Calcium 8.8 mg/dl (8.5-10.1); Creatinine Clr Calc Pharmacy 46.1 ml/min; Est GFR (African American) 73.6 ml/min; Est GFR (Non-African American) 63.5 ml/min; Magnesium 2.1 mg/dl (1.7-2.4); Potassium 4.1 mmol/L (3.5-5.1)
[2022-12-16] MEDS: FAMOTIDINE 20 MG TAB PO SCH (13:33)
--- NOTE | 2022-12-16 14:06 | Hospitalist Progress Note ---
Date of Service December 16, 2022 Assessment & Plan (1) Ketoacidosis: Plan 87-year-old male with PMH of HLD, allergic rhinitis, gout, HTN, near syncope, bradycardia, RBBB, first-degree AV block, diverticulum of bladder, BPH, degenerative disc disease, bilateral SNHL, balance problems who and was started on metformin/was diagnosed with diabetes a couple of months ago/did not tolerate/stopped taking and presented to PCP office 12/09 with increased thirst/urination/fogginess [OP chart reviewed on 12/16] and was prescribed jardiance on 12/09 (I called pharmacy 12/16-he filled it on 12/10). Noted to take it for 3 days [employer] per H and P note. Upon asking pt reports taking it for 2 weeks , which won't be possible as he filled it in 12/10. He presented to the ED 12/15 for feeling weak/tired/not being able to get up from the bed and walk because of weakness. He had an episode of nausea and vomiting the day of arrival to ED. He is being managed for the following: Weakness DKA Patient presents with nausea, vomiting x1, weakness in the setting of recent beatriz gnosis of diabetes. Admitting glucose of 307 and anion gap of 20. Admitting COVID/flu/RSV negative. Admitting WBC at baseline. Admitting chest exam clear to auscultation. Admitting UA not suggestive of UTI. We will get blood culture to complete infection work-up. Possible euglycemic/mildly hyperglycemic DKA due to Jardiance, status post insulin drip and DKA resolved, patient eating breakfast, improving nausea and vomiting, sliding scale insulin currently. Monitor overnight, reached out to endocrinology on-call, awaiting reply. A1c this admission 9.4, paraeducator consult. Glycemic pharmacy on board, appreciate recommendation. Continue telemetry. PT/OT, CM to assist with DC planning. Monitor and replete electrolytes. Patient has follow-up appointment at [facility] endocrinology on Wednesday at 2 PM. Acute kidney injury over CKD stage III: Admitting creatinine of 1.49 likely secondary to dehydration secondary to DKA, baseline creatinine around 1.1-1.2. Status post IV fluids. Resolved. Other chronic medical conditions: Paroxysmal A-fib single event in 2015 when he was on a steroid for polymyalgia rheumatica. Continue to monitor. 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 Continue home atenolol/losartan/terazosin as appropriate. 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 Continue to monitor. DVT prophylaxis: Heparin subcu Full code Family update: Patient's son Satish updated at bedside 12/16. Disposition: PT/OT, CM to assist with DC planning. Admission and Anticipated Discharge Date Admission Date: December 15, 2022 Subjective Patient seen and examined at bedside as a follow-up of weakness, mild DKA. Patient was lying in bed, on room air, NAD, reports improving nausea and vomiting, denies any belly pain, has already started his diet, insulin drip off, reports feeling better, denies headache or dizziness or fever or chills or cough or sore throat or viral-like illness, denies pain or burning with passing urine. Physical Exam Physical Exam: GENERAL: Alert and oriented x3. NAD, on RA. Appears ill/weak/frail. HEENT: No pallor, no icterus. Pupils equal, round and reactive to light. Oral mucosa moist. NECK: No JVD, no neck masses. HEART: S1 and S2 heard. Regular rate and rhythm. No murmur, no gallop. RESPIRATORY SYSTEM: Normal AP diameter. No accessory muscle use. No wheezing, no crackles. ABDOMEN: Soft, bowel sounds present, nontender, no distention. CENTRAL NERVOUS SYSTEM: No facial droop. Speech is clear. Obeys simple commands. Moves extremities. EXTREMITIES: No edema, no erythema seen. Results & Data Results & Data ([facility]) Vital Signs (Past 12 Hours) Vital Signs Temp Pulse Resp BP Pulse Ox O2 Del Method 12/16/22 11:57 36.5 C 71 17 132/59 L 97 Room Air 12/16/22 08:05 36.5 C 12/16/22 08:04 74 145/107 H 12/16/22 02:47 36.5 C 87 16 135/66 97 Room Air
[2022-12-16] MEDS: TERAZOSIN HCL 1 MG CAP PO SCH (20:18)
[2022-12-16] MEDS ORDERED: LANTUS PER UNIT CHARGE SQ SCH (21:00)
[2022-12-16] MEDS: OLANZapine 10 MG/2.1 ML SDV IM PRN (21:43)
[2022-12-17] MEDS: OLANZapine 10 MG/2.1 ML SDV IM PRN (01:52)
[2022-12-17] MEDS: INSULIN ASPART PER UNIT SC SCH ×5 (03:37→20:08)
[2022-12-17] MEDS: ATENOLOL 25 MG TABLET PO SCH (09:14)
[2022-12-17] MEDS: FAMOTIDINE 20 MG TAB PO SCH (09:14)
[2022-12-17] MEDS: LOSARTAN POTASSIUM 25 MG TAB PO SCH (09:14)
[2022-12-17] MEDS: valACYclovir HCL 500 MG TABLET PO SCH ×2 (09:14→20:09)
--- NOTE | 2022-12-17 09:20 | Pharmacy Report ---
Pharmacy Glycemic Short Note 2 - Date of Service December 17, 2022 - Glycemic Short BSG Results (Last 24 hours): 12/16/22 12/16/22 12/16/22 10:24 11:31 11:44 Glucose 91 POC Glucose 130 H 85 12/16/22 12/16/22 12/16/22 13:31 16:18 20:08 Glucose POC Glucose 167 H 151 H 127 H 12/16/22 12/17/22 12/17/22 23:25 03:34 07:29 Glucose POC Glucose 124 H 108 H 109 H OUTPATIENT ANTIDIABETIC REGIMEN: * Metformin 1gm PO daily * empagliflozin 10mg PO daily HbA1C: 9.4% (12/15/22) ASSESSMENT: 12/17 * BSG's in or only slightly above goal range since transitioning off insulin drip yesterday * Looser than weight-based moderate stress CHO ratio effectively managing BSG's - continue same * AM fasting with notable trend down since yesterday AM and basal insulin not yet at steady state. Lower prandial doses required noted. Will therefore decrease basal insulin 12/16 * Patient is an 87 year old male who presented to the ED with weakness and an episode of N/V. History of recent type 2 DM diagnosis on metformin, which he was reportedly not tolerating and was switched to empagliflozin. Initial labs consistent with mild DKA - pH-7.28, AG-20, bicarb-17, glucose-307. Patient started on an insulin drip per DKA protocol around midnight. * Insulin drip running consistently at 4 unit/hr this AM. D51/2 NS w/ 20mEq KCl running @ 200ml/hr. Labs this AM - pH-7.39, AG-7, bicarb-25 and BSGs within goal range. Will begin to transition to SQ. * Lantus 20 units SQ X 1 (~0.3unit/kg, ~wt/stress 3 with BID dosing). Novolog ACHS with carb ratio to cover breakfast. Diet ordered. IVF to d/c once he eats. Overlap insulin drip with Lantus for at least 2 hours. Novolog overnight checks tonight and HS Lantus scale. PLAN FOR INPATIENT GLYCEMIC CONTROL: * Hold outpatient oral diabetes medications * Basal insulin * Lantus 15 units SQ x1 this AM * Bolus insulin * NovoLog per scale ACHS or Q6hrs while NPO * Goal Range: Low 110 mg/dL - High 140 mg/dL * Correction Factor: 35 mg/dL/unit * Nutritional / Prandial insulin per carb ratio of 1 unit per 15 grams CHO consumed
[2022-12-17] MEDS: HEPARIN SOD 5,000 UNIT/0.5 ML VIAL SQ SCH ×2 (09:29→20:09)
[2022-12-17 09:45] LABS: Hematocrit (blood only) 38.4 % (42.0-52.0); Hemoglobin 13.9 g/dl (14.0-18.0); Mean Corpuscular Hemoglobin 34.1 pg (25.0-34.0); Mean Corpuscular Hgb Conc 36.2 g/dL (32.0-36.0); Mean Corpuscular Volume 94.1 fL (80.0-100.0); Mean Platelet Volume 9.1 fL (9.4-12.4); Platelet Count 184 K/uL (130-400); RDW Coefficient of Variation 14.3 % (11.5-14.5); RDW Standard Deviation 49.5 fL (36.4-46.3); Red Blood Count 4.08 M/uL (4.70-6.10)
[2022-12-17] MEDS: LANTUS PER UNIT CHARGE SQ SCH (09:47)
[2022-12-17 09:48] LABS: BUN Creatinine Ratio 23.6 (10-20); Calcium 8.6 mg/dl (8.5-10.1); Creatinine Clr Calc Pharmacy 45.6 ml/min; Est GFR (African American) 72.8 ml/min; Est GFR (Non-African American) 62.8 ml/min; Phosphorus 3.3 mg/dl (2.5-4.9); Potassium 3.9 mmol/L (3.5-5.1)
[2022-12-17] MEDS: ACETAMINOPHEN 325 MG TAB PO PRN ×2 (12:27→20:11)
[2022-12-17] MEDS ORDERED: NAPROXEN 250 MG TAB PO STA (14:25)
[2022-12-17] MEDS ORDERED: COUGH DROP (SUGAR FREE) LOZ 24 LOZ/1 BOX BUCCAL ONE (14:37)
--- NOTE | 2022-12-17 15:05 | Hospitalist Progress Note ---
Date of Service December 17, 2022 Assessment & Plan (1) Ketoacidosis: Plan 87-year-old male with PMH of HLD, allergic rhinitis, gout, HTN, near syncope, bradycardia, RBBB, first-degree AV block, diverticulum of bladder, BPH, degenerative disc disease, bilateral SNHL, balance problems who and was started on metformin/was diagnosed with diabetes a couple of months ago/did not tolerate/stopped taking and presented to PCP office 12/09 with increased thirst/urination/fogginess [OP chart reviewed on 12/16] and was prescribed jardiance on 12/09 (I called pharmacy 12/16-he filled it on 12/10). Noted to take it for 3 days [employer] per H and P note. Upon asking pt reports taking it for 2 weeks , which won't be possible as he filled it in 12/10. He presented to the ED 12/15 for feeling weak/tired/not being able to get up from the bed and walk because of weakness. He had an episode of nausea and vomiting the day of arrival to ED. He is being managed for the following: Weakness DKA Patient presents with nausea, vomiting x1, weakness in the setting of recent beatriz gnosis of diabetes. Admitting glucose of 307 and anion gap of 20. Admitting COVID/flu/RSV negative. Admitting WBC at baseline. Admitting chest exam clear to auscultation. Admitting UA not suggestive of UTI. We will get blood culture to complete infection work-up. Possible euglycemic/mildly hyperglycemic DKA due to Jardiance, status post insulin drip and DKA resolved, patient eating breakfast, improving nausea and vomiting, sliding scale insulin currently. Monitor overnight, d/w endocrinology, plan to dc him on basal insulin only. A1c this admission 9.4, family life educator consult. Glycemic pharmacy on board, appreciate recommendation.d/w pharmacy - will use 10 unit lantus in AM on DC. Continue telemetry. PT/OT, CM to assist with DC planning. Monitor and replete electrolytes. Patient has follow-up appointment at [facility] endocrinology on Wednesday at 2 PM. due to him being weak and needing ongoing pt/ot, he will need rehab. Acute kidney injury over CKD stage III: Admitting creatinine of 1.49 likely secondary to dehydration secondary to DKA, baseline creatinine around 1.1-1.2. Status post IV fluids. Resolved. Hospital delirium: agitation overnight, needed zyprexa. 1:1. Other chronic medical conditions: Paroxysmal A-fib single event in 2015 when he was on a steroid for polymyalgia rheumatica. Continue to monitor. 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 Continue home atenolol/losartan/terazosin as appropriate. 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 Continue to monitor. DVT prophylaxis: Heparin subcu Full code Family update: Patient's son Satish updated at bedside 12/16. Disposition: PT/OT, CM to assist with DC planning. will need placement. Admission and Anticipated Discharge Date Admission Date: December 15, 2022 Subjective Patient seen and examined at bedside as a follow-up of weakness, mild DKA. Patient was lying in bed, on room air, NAD, agitation overnight/needed zyprexa, denies any belly pain/nausea/vomiting, reports feeling better, denies headache or dizziness or fever or chills or cough or sore throat or viral-like illness, denies pain or burning with passing urine. and son at bedside, updated. Physical Exam Physical Exam: GENERAL: Alert and oriented x3. NAD, on RA. Appears ill/weak/frail. HEENT: No pallor, no icterus. Pupils equal, round and reactive to light. Oral mucosa moist. NECK: No JVD, no neck masses. HEART: S1 and S2 heard. Regular rate and rhythm. No murmur, no gallop. RESPIRATORY SYSTEM: Normal AP diameter. No accessory muscle use. No wheezing, no crackles. ABDOMEN: Soft, bowel sounds present, nontender, no distention. CENTRAL NERVOUS SYSTEM: No facial droop. Speech is clear. Obeys simple commands. Moves extremities. EXTREMITIES: No edema, no erythema seen. Results & Data Results & Data ([facility]) Vital Signs (Past 12 Hours) Vital Signs Temp Pulse Pulse Resp BP Pulse Ox O2 Del Method 12/17/22 08:00 Room Air 12/17/22 11:03 36.6 C 62 16 115/57 L 97 Room Air 12/17/22 07:34 36.7 C 66 16 132/59 L 97 Room Air 12/17/22 07:22 81 12/17/22 03:40 36.7 C 57 L 14 115/50 L 96 Room Air
[2022-12-17] MEDS: TERAZOSIN HCL 1 MG CAP PO SCH (20:09)
[2022-12-17] MEDS ORDERED: MELATONIN 3 MG TAB PO PRN (23:48)
[2022-12-18] MEDS: OLANZapine 10 MG/2.1 ML SDV IM PRN ×2 (01:35→17:34)
[2022-12-18] MEDS: valACYclovir HCL 500 MG TABLET PO SCH ×2 (08:08→19:34)
[2022-12-18] MEDS: LOSARTAN POTASSIUM 25 MG TAB PO SCH (08:08)
[2022-12-18] MEDS: FAMOTIDINE 20 MG TAB PO SCH (08:08)
[2022-12-18] MEDS: ATENOLOL 25 MG TABLET PO SCH (08:08)
[2022-12-18] MEDS: HEPARIN SOD 5,000 UNIT/0.5 ML VIAL SQ SCH ×2 (08:12→19:33)
[2022-12-18] MEDS: LANTUS PER UNIT CHARGE SQ SCH (08:26)
[2022-12-18] MEDS: INSULIN ASPART PER UNIT SC SCH ×4 (08:26→20:39)
[2022-12-18 09:06] LABS: Hematocrit (blood only) 38.2 % (42.0-52.0); Mean Corpuscular Hemoglobin 34.3 pg (25.0-34.0); Mean Corpuscular Hgb Conc 36.6 g/dL (32.0-36.0); Mean Corpuscular Volume 93.6 fL (80.0-100.0); Mean Platelet Volume 9.3 fL (9.4-12.4); Platelet Count 177 K/uL (130-400); RDW Coefficient of Variation 14.2 % (11.5-14.5); RDW Standard Deviation 48.7 fL (36.4-46.3); Red Blood Count 4.08 M/uL (4.70-6.10); White Blood Count 1.41 K/ul (4.8-10.8)
[2022-12-18 09:19] LABS: BUN Creatinine Ratio 29.4 (10-20); Calcium 8.8 mg/dl (8.5-10.1); Creatinine Clr Calc Pharmacy 47.6 ml/min; Est GFR (African American) 76.2 ml/min; Est GFR (Non-African American) 65.8 ml/min; Magnesium 1.9 mg/dl (1.7-2.4); Phosphorus 3.3 mg/dl (2.5-4.9); Potassium 3.5 mmol/L (3.5-5.1)
[2022-12-18 10:13] LABS: Appearance Urine Cloudy (Clear); Bacteria Urine Automated 4+ (Negative); Bilirubin Urine Negative (Negative); Blood Urine 2+ (Negative); Color Urine Yellow; Glucose Urine UA 3+ (Negative); Ketones Urine 1+ (Negative); Leukocyte Esterase Urine 1+ (Negative); Nitrite Urine Positive (Negative); Protein Urine Trace (Negative); RBC Urine Automated 0-4 /hpf (0-4); Specific Gravity Urine 1.032 (1.000-1.030); Urobilinogen Urine Negative (Negative); WBC Urine Automated >30 /hpf (0-5)
--- NOTE | 2022-12-18 10:14 | Urology Consultation ---
Date of Consultation December 18, 2022 Assessment & Plan (1) Urinary retention: Plan 87yo/M admitted with weakness, DKA, KAREN on CKD. Urology consulted for urinary retention requiring Lopez catheter placement. Urinary retention likely multifactorial including deconditioning, underlying BPH. He is afebrile and hemodynamically stable. Labs show normal renal function. A urine culture is pending. Blood cultures on admission preliminary no growth x 48hours. Would recommend maintaining catheter for approximately 7 days to allow for bladder rest or until patient is medically suitable for removal. We will arrange an outpatient follow-up with our service for follow-up and voiding trial if the catheter is not removed before then. Can continue alpha tana and consider addition of finasteride for dual therapy. Urology will sign off. Please contact us with any further questions, concerns, or changes in patient's status. History of Present Illness Reason for Consultation: Urinary retention Attending Physician: Keith Page MD History of Present Illness 87-year-old male with past medical history significant for history of hyperlipidemia, allergic rhinitis, history of gout, hypertension, history of near syncope, history of bradycardia, right bundle-branch block, first-degree AV block, history of diverticulum of bladder, BPH, degenerative disk disease, bilateral sensorineural hearing loss, balance problems admitted with weakness, DKA, and KAREN on CKD. Urology consulted for urinary retention. Per chart review, patient had not voided for several hours yesterday evening/overnight. He was bladder scanned yesterday evening 12/17 for 945 mL and was straight cathed by nursing. He was then voiding some on his own and a bladder scan was rechecked overnight 12/18 showing 499 mL. Patient refused another straight catheterization threatening to hit staff if attempted. Nursing reports he did not void overnight and was agreeable to Lopez catheter placement this morning. Patient examined at bedside this afternoon. Currently on 1:1. Alert and oriented to person at time of exam. Answered a few questions appropriately but confused at times. He denies any pain or discomfort at present. The catheter is currently intact, draining cloudy yellow urine with sediment in tubing. A urine culture was sent. No fevers. Per his report, he does follow with a urologist in [place]? He also reports a history of BPH with prior prostate surgery but unable to give full details. He continues on terazosin. Denies prior issues with urinary retention. Allergies Allergy/AdvReac Type Severity Reaction Status Date / Time Penicillins Allergy Severe HIVES Verified 12/15/22 19:42 Sulfa (Sulfonamide Allergy Severe RASH Verified 12/15/22 19:42 Antibiotics) tree and shrub pollen Allergy Unknown Verified 12/15/22 19:42 Home Medications Medication Instructions Recorded Confirmed Type azelastine 137 mcg (0.1 %) nasal 2 spray intranasal BID PRN 07/10/19 12/15/22 History spray aerosol Congestion cetirizine 10 mg tablet 10 mg PO DAILY PRN Allergy Symptoms 07/10/19 12/15/22 History flecainide 100 mg tablet 100 mg PO Q2D PRN Cardiac 07/10/19 12/15/22 History Arrhythmia losartan 25 mg tablet 25 mg PO QAM 07/10/19 12/15/22 History atenolol 25 mg tablet 25 mg PO QAM 11/20/21 12/15/22 History valacyclovir 1 gram tablet 1,000 mg PO BID 11/20/21 12/15/22 History metformin 500 mg tablet,extended 1,000 tab PO QAM 09/10/22 12/15/22 History release 24 hr empagliflozin 10 mg tablet 10 mg PO DAILY 12/15/22 12/15/22 History (Jardiance) hydroxyzine HCl 25 mg tablet 25 mg PO TID PRN Itching 12/15/22 12/15/22 History ketoconazole 2 % shampoo 1 applic topical .Q3DAYS 12/15/22 12/15/22 History naproxen sodium 220 mg tablet 220 mg PO Q12H PRN Pain 12/15/22 12/15/22 History (Aleve) terazosin 2 mg capsule 4 mg PO HS 12/15/22 12/15/22 History Patient History Medical History Actinic keratosis 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) Diverticulitis (07/23/14) Diverticulitis DM (diabetes mellitus) DVT (deep venous thrombosis) H/O prostatitis HTN (hypertension) Incomplete emptying of bladder (11/03/14) Left leg DVT Postoperative urethral stricture Sensorineural hearing loss of both ears Urinary retention UTI (lower urinary tract infection) UTI (lower urinary tract infection) Surgical History History of back surgery History of knee surgery History of surgery Stomach, skin S/P TURP Family History Other Family history non-contributory Heart disease No family history of adverse response to anesthesia No family history of bleeding disorder Denies family history of Ovarian cancer Prostate cancer Myocardial infarction Breast cancer Colorectal cancer Social History Smoking Status: Unknown if ever smoked Second Hand Exposure: No; Hx Alcohol Use: No Hx Substance Use: No Preferred Language: Singaporean Communication Ability: Effective Visual Impairment: No Limitations Hearing Ability: Hard of Hearing Welding Supervisor Required: No Beliefs That Will Affect Care: None marital status: Current Living Situation: Spouse current occupational status: retired How many Children do You have: 3 Other Information That Helps Us Care for You: No Feels Safe at Home: Yes Safety Concerns: Feels Safe At This Time Childhood Exposure to Second-Hand Smoke: No Dental Care, Regularly: Yes Physical Activity Frequency: 3-4 Times per Week Seatbelt Use: always Sunscreen Use: No Assistive Devices: Cane Review of Systems Review of Systems: All systems reviewed & are unremarkable except as noted in HPI & below Physical Exam Constitutional: no acute distress Confused Neck: normal visual inspection Respiratory: normal respiratory effort; no respiratory distress and no labored breathing Gastrointestinal (Abdomen): Percussion/Palpation: abdomen soft; abdomen nontender Musculoskeletal: Head/Neck/Chest: normocephalic Skin: No visible rashes or lesions to exposed skin areas Neurologic: moves all extremities and awake Psychiatric: Orientation: alert and oriented to person Genitourinary: Lopez catheter intact Results & Data ([facility]) Vital Signs (Past 12 Hours) Vital Signs Temp Pulse Pulse Pulse Resp BP Pulse Ox 12/18/22 08:00 12/18/22 07:39 36.4 C L 67 18 123/63 98 12/18/22 07:02 68 12/18/22 03:09 36.4 C L 67 18 100/65 97 12/17/22 22:46 65 12/17/22 22:20 36.5 C 67 16 117/62 98 O2 Del Method 12/18/22 08:00 Room Air 12/18/22 07:39 Room Air 12/18/22 07:02 12/18/22 03:09 Room Air 12/17/22 22:46 12/17/22 22:20 Room Air PG Care Time/CCT Total # of Minutes Spent Total Time Spent with Patient: Total time spent is greater than 50% in coordination of care (as documented) at patient's floor/unit and/or counseling patient: Coding Level of Care Code 60890 INT INP/OBS CARE 1/40MIN Diagnoses Urinary retention R33.9
--- NOTE | 2022-12-18 10:46 | Pharmacy Report ---
Pharmacy Glycemic Short Note 2 - Date of Service December 18, 2022 - Glycemic Short BSG Results (Last 24 hours): 12/17/22 12/17/22 12/17/22 11:25 16:27 20:00 Glucose POC Glucose 185 H 247 H 203 H 12/18/22 12/18/22 07:15 08:40 Glucose 231 H POC Glucose 121 H OUTPATIENT ANTIDIABETIC REGIMEN: * Metformin 1gm PO daily * empagliflozin 10mg PO daily HbA1C: 9.4% (12/15/22) ASSESSMENT: 12/18 * Stressors stable. * Post-prandial BSG's all >180 mg/dL yesterday. Will tighten CHO ratio. * AM fasting BSG within goal range - no change to Lantus 12/17 * BSG's in or only slightly above goal range since transitioning off insulin drip yesterday * Looser than weight-based moderate stress CHO ratio effectively managing BSG's - continue same * AM fasting with notable trend down since yesterday AM and basal insulin not yet at steady state. Lower prandial doses required noted. Will therefore decrease basal insulin 12/16 * Patient is an 87 year old male who presented to the ED with weakness and an e pisode of N/V. History of recent type 2 DM diagnosis on metformin, which he was reportedly not tolerating and was switched to empagliflozin. Initial labs consistent with mild DKA - pH-7.28, AG-20, bicarb-17, glucose-307. Patient started on an insulin drip per DKA protocol around midnight. * Insulin drip running consistently at 4 unit/hr this AM. D51/2 NS w/ 20mEq KCl running @ 200ml/hr. Labs this AM - pH-7.39, AG-7, bicarb-25 and BSGs within goal range. Will begin to transition to SQ. * Lantus 20 units SQ X 1 (~0.3unit/kg, ~wt/stress 3 with BID dosing). Novolog ACHS with carb ratio to cover breakfast. Diet ordered. IVF to d/c once he eats. Overlap insulin drip with Lantus for at least 2 hours. Novolog overnight checks tonight and HS Lantus scale. PLAN FOR INPATIENT GLYCEMIC CONTROL: * Hold outpatient oral diabetes medications * Basal insulin * Lantus 15-20 units SQ qAM, depending on BSG * Bolus insulin * NovoLog per scale ACHS or Q6hrs while NPO * Goal Range: Low 110 mg/dL - High 140 mg/dL * Correction Factor: 35 mg/dL/unit * Nutritional / Prandial insulin per carb ratio of 1 unit per 12 grams CHO consumed
--- NOTE | 2022-12-18 14:21 | Psychiatric Consultation ---
Date of Consultation December 18, 2022 Impression / Recommendations Impression 87yo old man with no known psychiatric history admitted for weakness, concern for DKA with increased confusion, paranoia, episode of visual hallucination and agitation overnight. Diagnostically consistent with encephalopathy/delirium unclear if he has dementia or mild cognitive impairments at baseline that could also be contributing to possible sundowning at night. Goal is to avoid medication management of behaviors if possible by maximizing non-pharmacologic strategies for behavioral management. However, given worsening agitation/aggression could consider starting a scheduled antipsychotic in an e ffort to avoid needing to use IMs overnight. Note if dementia is present all antipsychotic medications carry black box warning for increased risk of all-cause mortality in setting of dementia. Typically would prefer haldol given new metabolic syndrome/diabetes but given his age, significant cardiac history and prolonged QTc would utilize zyprexa or seroquel. Overall, I spent a total of 60 minutes with this case including review of chart records, review of labwork, review of EKG QTc, direct evaluation of the patient at bedside, counseling the patient, discussion of the patient with the spitalist provider, discussion with the psychiatric liason during clinical rounds, review of history from the family and documentation in the electronic health record. (1) Acute hyperglycemia: (2) Ketoacidosis: (3) Acute dehydration: (4) Delirium: Plan -1-on-1 as needed for agitation -Consider zyprexa 2.5mg po HS (given this has been helpful) versus seroquel 12.5 mg po qhs; continue to closely follow EKG QTc and discontinue if QTc>500ms. -Consider melatonin 3mg qhs -Continue medical workup to rule out and treat any underlying causes con tributing to potential delirium, avoid or limit use of deliriogenic medications (benzodiazepines, opioids, anticholinergics) -Continue with delirium prevention measures: raising blinds during the day, closing at night, frequent re-orientation, contact with family/friends, explaining procedures/nursing care measures prior to physical contact, correct any hearing and visual impairments -For behavioral emergency: olanzapine 2.5 mg IM (DO NOT exceed 15mg per 24 hours , check EKG if IM dose required, NEVER co-administer with IM or IV b enzodiazepines). Psych History Identifying Data 87 yo man with HLD, gout, HTN, bradycardia, RBBB, BPH and recent diagnosis of diabetes admitted medically for ketoacidosis/DKA. Psychiatry consulted for recommendations for agitation. Chief Complaint "I know you [employer] people, what are you selling?". History of Present Illness Juan was admitted for concern for DKA given recent diagnosis of diabetes and w orsening weakness with concern for DKA. Over the last two nights he's had multiple episodes of agitation at night requiring IM zyprexa 2.5mg on 12/17/2022 and then again last night at 1:39am on 12/18/2022 after agitation, kicking and hitting staff. Today he is seen with his and son at bedside. He tells me is at [facility] though corrects this to the hospital, [facility]. His family states he has a sense of humor and that [facility] was a joke. Thinks the city is [place] (family confirms he's been believing this all day) and knows month and year. He thinks I am somehow affiliated with [facility] and that I'm trying to get money or take his money but he's pleasant and cooperative with interview despite this paranoia. He can't recall getting agitated last night. His recalls him calling her on the phone with paranoia and asking her to come get him immediately. He told his son he thought there was a "feral cat" in his bed with him last night. Today thinks the cat may have just been outside. His reports he's hardly slept in the last 48 hours. Doesn't seem to be dementia or history of memory problems at baseline. Allergies Allergy/AdvReac Type Severity Reaction Status Date / Time Penicillins Allergy Severe HIVES Verified 12/15/22 19:42 Sulfa (Sulfonamide Allergy Severe RASH Verified 12/15/22 19:42 Antibiotics) tree and shrub pollen Allergy Unknown Verified 12/15/22 19:42 Home Medications Medication Instructions Recorded Confirmed Type azelastine 137 mcg (0.1 %) nasal 2 spray intranasal BID PRN 07/10/19 12/15/22 History spray aerosol Congestion cetirizine 10 mg tablet 10 mg PO DAILY PRN Allergy Symptoms 07/10/19 12/15/22 History flecainide 100 mg tablet 100 mg PO Q2D PRN Cardiac 07/10/19 12/15/22 History Arrhythmia losartan 25 mg tablet 25 mg PO QAM 07/10/19 12/15/22 History atenolol 25 mg tablet 25 mg PO QAM 11/20/21 12/15/22 History valacyclovir 1 gram tablet 1,000 mg PO BID 11/20/21 12/15/22 History metformin 500 mg tablet,extended 1,000 tab PO QAM 09/10/22 12/15/22 History release 24 hr empagliflozin 10 mg tablet 10 mg PO DAILY 12/15/22 12/15/22 History (Jardiance) hydroxyzine HCl 25 mg tablet 25 mg PO TID PRN Itching 12/15/22 12/15/22 History ketoconazole 2 % shampoo 1 applic topical .Q3DAYS 12/15/22 12/15/22 History naproxen sodium 220 mg tablet 220 mg PO Q12H PRN Pain 12/15/22 12/15/22 History (Aleve) terazosin 2 mg capsule 4 mg PO HS 12/15/22 12/15/22 History Patient History Medical History Actinic keratosis 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) Diverticulitis (07/23/14) Diverticulitis DM (diabetes mellitus) DVT (deep venous thrombosis) H/O prostatitis HTN (hypertension) Incomplete emptying of bladder (11/03/14) Left leg DVT Postoperative urethral stricture Sensorineural hearing loss of both ears Urinary retention UTI (lower urinary tract infection) UTI (lower urinary tract infection) Surgical History History of back surgery History of knee surgery History of surgery Stomach, skin S/P TURP Family History Other Family history non-contributory Heart disease No family history of adverse response to anesthesia No family history of bleeding disorder Denies family history of Ovarian cancer Prostate cancer Myocardial infarction Breast cancer Colorectal cancer Social History Smoking Status: Unknown if ever smoked Second Hand Exposure: No; Hx Alcohol Use: No Hx Substance Use: No Preferred Language: Greenlandic Communication Ability: Effective Visual Impairment: No Limitations Hearing Ability: Hard of Hearing Investigation Specialist Required: No Beliefs That Will Affect Care: None marital status: Current Living Situation: Spouse current occupational status: retired How many Children do You have: 3 Other Information That Helps Us Care for You: No Feels Safe at Home: Yes Safety Concerns: Feels Safe At This Time Childhood Exposure to Second-Hand Smoke: No Dental Care, Regularly: Yes Physical Activity Frequency: 3-4 Times per Week Seatbelt Use: always Sunscreen Use: No Assistive Devices: Cane Physical Exam Psychiatric: Orientation: alert and oriented to person; + not oriented to niels ce and + not oriented to time Apperance: appropriately dressed and appropriately groomed Eye Contact: + fair eye contact Motor Behavior: no abnormal motor movements Speech: normal rate/rhythm/volume of speech Affect: euthymic affect Mood: + irritable mood Thought Process: + looseness of associations Thought Content: + preoccupation and + paranoid Suicidal Thoughts: denies suicidal thoughts Homicidal Thoughts: denies homicidal thoughts Hallucinations: no auditory hallucinations and no visual hallucinations (none currently but saw a cat last night) Cognition: language grossly intact; + recent memory not intact and + attention not intact Insight: + severely impaired insight Judgment: + severely impaired judgement Vital Signs (Past 24 Hours): Last Vital Signs Temp 36.6 C 12/18/22 11:39 Pulse 72 12/18/22 11:39 Resp 16 12/18/22 11:39 BP 136/65 12/18/22 11:39 Pulse Ox 98 12/18/22 11:39 O2 Del Method Room Air 12/18/22 11:39 Review of Systems All systems reviewed & are unremarkable except as noted in HPI & below (reports some leg pain ) Results & Data (PSY) Diagnostic Findings QTc 486ms on EKG on 12/15/2022 Medications Administered Acetaminophen (Acetaminophen 325 Mg Tab) 650 mg PO Q4H PRN PRN Reason: Pain or Fever Stop: 01/15/23 00:02 Last Admin: 12/17/22 20:11 Dose: 650 mg Documented By: Admin: 12/17/22 12:27 Dose: 650 mg Documented By: Atenolol (Atenolol 25 Mg Tablet) [facility] [place] Stop: 01/15/23 08:59 Last Admin: 12/18/22 08:08 Dose: 25 mg Documented By: Admin: 12/17/22 09:14 Dose: 25 mg Documented By: Admin: 12/16/22 08:02 Dose: 25 mg Documented By: CASANDRA Calcium Carbonate (Calcium Carbonate 500 Mg Chewable Tab) 1,000 mg PO BID PRN PRN Reason: Indigestion Stop: 01/15/23 08:00 Last Admin: 12/16/22 17:07 Dose: 1,000 mg Documented By: Admin: 12/16/22 08:38 Dose: 1,000 mg Documented By: CASANDRA Dextrose (Dextrose 50% 50 Ml Syringe) 25 - 50 ml IV UD PRN; Protocol PRN Reason: Hypoglycemia Protocol Stop: 01/15/23 00:44 Last Admin: 12/16/22 03:06 Dose: 25 ml Documented By: AARON Famotidine (Famotidine 20 Mg Tab) 20 mg PO QAM [facility] Stop: 01/15/23 11:14 Last Admin: 12/18/22 08:08 Dose: 20 mg Documented By: Admin: 12/17/22 09:14 Dose: 20 mg Documented By: Admin: 12/16/22 13:33 Dose: 20 mg Documented By: CASANDRA Heparin Sodium (Porcine) (Heparin Sod 5,000 Unit/0.5 Ml Vial) 5,000 units SQ Q12 [facility] Stop: 01/15/23 08:59 Last Admin: 12/18/22 08:12 Dose: 5,000 units Documented By: Admin: 12/17/22 20:09 Dose: 5,000 units Documented By: Admin: 12/17/22 09:29 Dose: 5,000 units Documented By: Admin: 12/16/22 20:19 Dose: 5,000 units Documented By: Admin: 12/16/22 08:02 Dose: 5,000 units Documented By: CASANDRA Insulin Aspart (Insulin Aspart Per Unit) 0 units SC ACHS [facility] Stop: 01/15/23 08:14 Last Admin: 12/18/22 12:51 Dose: 6 units Documented By: Co-signed By: LAURIE Admin: 12/18/22 08:26 Dose: 5 units Documented By: Co-signed By: LAURIE Admin: 12/17/22 20:08 Dose: 4 units Documented By: LLUVIA Co-signed By: GEETA Admin: 12/17/22 17:45 Dose: 7 units Documented By: Co-signed By: LAURIE Admin: 12/17/22 12:27 Dose: 4 units Documented By: Co-signed By: LAURIE Admin: 12/17/22 09:46 Dose: Not Given Documented By: Co-signed By: AMY Admin: 12/16/22 20:17 Dose: Not Given Documented By: Admin: 12/16/22 17:09 Dose: 4 units Documented By: CASANDRA Co-signed By: FADY Admin: 12/16/22 12:29 Dose: Not Given Documented By: Admin: 12/16/22 08:44 Dose: 3 units Documented By: CASANDRA Co-signed By: FADY Insulin Glargine (Lantus Per Unit Charge) [facility]; Protocol Stop: 01/16/23 08:59 Last Admin: 12/18/22 08:26 Dose: 15 units Documented By: Co-signed By: LAURIE Admin: 12/17/22 09:47 Dose: 15 units Documented By: Co-signed By: AMY Losartan Potassium (Losartan Potassium 25 Mg Tab) 25 mg PO QAM [facility] Stop: 01/15/23 08:59 Last Admin: 12/18/22 08:08 Dose: 25 mg Documented By: Admin: 12/17/22 09:14 Dose: 25 mg Documented By: Admin: 12/16/22 08:03 Dose: 25 mg Documented By: CASANDRA Melatonin (Melatonin 3 Mg Tab) 3 mg PO HS PRN PRN Reason: Sleep Stop: 01/16/23 23:47 Last Admin: 12/18/22 00:15 Dose: 3 mg Documented By: LLUVIA Olanzapine (Olanzapine 10 Mg/2.1 Ml Sdv) 2.5 mg IM Q4H PRN PRN Reason: Anxiety/Agitation Stop: 01/15/23 19:24 Last Admin: 12/18/22 01:35 Dose: 2.5 mg Documented By: Admin: 12/17/22 01:52 Dose: 2.5 mg Documented By: Admin: 12/16/22 21:43 Dose: 2.5 mg Documented By: LLUVIA Polyethylene Glycol (Polyethylene (Miralax) 17 Gm Pack) 17 gm PO DAILY PRN PRN Reason: Constipation Stop: 01/15/23 00:02 Last Admin: 12/16/22 09:49 Dose: 17 gm Documented By: CASANDRA Terazosin HCl (Terazosin Hcl 1 Mg Cap) 4 mg PO HS [facility] Stop: 01/15/23 20:59 Last Admin: 12/17/22 20:09 Dose: 4 mg Documented By: Admin: 12/16/22 20:18 Dose: 4 mg Documented By: LLUVIA Valacyclovir HCl (Valacyclovir Hcl 500 Mg Tablet) 1,000 mg PO BID [facility] Stop: 01/15/23 08:59 Last Admin: 12/18/22 08:08 Dose: 1,000 mg Documented By: Admin: 12/17/22 20:09 Dose: 1,000 mg Documented By: Admin: 12/17/22 09:14 Dose: 1,000 mg Documented By: Admin: 12/16/22 20:18 Dose: 1,000 mg Documented By: Admin: 12/16/22 08:03 Dose: 1,000 mg Documented By: CASANDRA Coding Level of Care Code INP/OBS CONSULT LVL 4, 60 MIN Diagnoses Acute hyperglycemia R73.9 Ketoacidosis E87.29 Acute dehydration E86.0 Delirium R41.0 Time Spent (min) 60
--- NOTE | 2022-12-18 16:10 | Hospitalist Progress Note ---
Date of Service December 18, 2022 Assessment & Plan (1) Ketoacidosis: Plan 87-year-old male with PMH of HLD, allergic rhinitis, gout, HTN, near syncope, bradycardia, RBBB, first-degree AV block, diverticulum of bladder, BPH, degenerative disc disease, bilateral SNHL, balance problems who and was started on metformin/was diagnosed with diabetes a couple of months ago/did not tolerate/stopped taking and presented to PCP office 12/09 with increased thirst/urination/fogginess [OP chart reviewed on 12/16] and was prescribed jardiance on 12/09 (I called pharmacy 12/16-he filled it on 12/10). 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 Upon asking pt reports taking it for 2 weeks , which won't be possible as he filled it in 12/10. He presented to the ED 12/15 for feeling weak/tired/not being able to get up from the bed and walk because of weakness. He had an episode of nausea and vomiting the day of arrival to ED. He is being managed for the following: Weakness DKA Patient presents with nausea, vomiting x1, weakness in the setting of recent beatriz gnosis of diabetes. Admitting glucose of 307 and anion gap of 20. Admitting COVID/flu/RSV negative. Admitting WBC at baseline. Admitting chest exam clear to auscultation. Admitting UA not suggestive of UTI. We will get blood culture to complete infection work-up. Possible euglycemic/mildly hyperglycemic DKA due to Jardiance, status post insulin drip and DKA resolved, patient eating breakfast, improving nausea and vomiting, sliding scale insulin currently. Monitor overnight, d/w endocrinology, plan to dc him on basal insulin only. A1c this admission 9.4, public health service officer consult. Glycemic pharmacy on board, appreciate recommendation.d/w pharmacy - will use 10 unit lantus in AM on DC. Continue telemetry. PT/OT, CM to assist with DC planning. Monitor and replete electrolytes. due to him being weak and needing ongoing pt/ot, he will need rehab. d/w science education professor, he will need following at DC: 1.) Glargine vial. 2.) Insulin syringe U-100 with needle 0.3 mL 31 gauge x 15-64" (6mm) 3.) FreeStyle Clementine 2 [place] - 1 each. 4.) FreeStyle Clementine 2 Sensor Kit - 2 per 28 days. Acute kidney injury over CKD stage III: Admitting creatinine of 1.49 likely secondary to dehydration secondary to DKA, baseline creatinine around 1.1-1.2. Status post IV fluids. Resolved. Hospital delirium: agitation overnight, needed zyprexa. 1:1. d/w psy, sal zyprexa, c/ w melatonin. Urinary retention/ concern for UTI: found to be retaining urine on bladder scan, no urgency to void; straight cathed 700cc on 12/17 and next time 500 cc after vazquez. Uro evaled, f/u uro as OP. Will treat uti. Other chronic medical conditions: Paroxysmal A-fib single event in 2015 when he was on a steroid for polymyalgia rheumatica. Continue to monitor. 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 Continue home atenolol/losartan/terazosin as appropriate. 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 Continue to monitor. DVT prophylaxis: Heparin subcu Full code Family update: Patient's son Satish updated at bedside 12/16. Disposition: PT/OT, CM to assist with DC planning. will need placement. Admission and Anticipated Discharge Date Admission Date: December 15, 2022 Subjective Patient seen and examined at bedside as a follow-up of weakness, mild DKA. Patient was lying in bed, on room air, NAD, agitation/combative overnight/needed zyprexa, d/w psychiatry - plan to use sal zyprexa w/ qtc monitoring, denies any belly pain/nausea/vomiting, is eating ok, denies headache or dizziness or fever or chills or cough or sore throat or viral-like illness. Physical Exam Physical Exam: GENERAL: Alert and oriented x3. NAD, on RA. Appears ill/weak/frail. HEENT: No pallor, no icterus. Pupils equal, round and reactive to light. Oral mucosa moist. NECK: No JVD, no neck masses. HEART: S1 and S2 heard. Regular rate and rhythm. No murmur, no gallop. RESPIRATORY SYSTEM: Normal AP diameter. No accessory muscle use. No wheezing, no crackles. ABDOMEN: Soft, bowel sounds present, nontender, no distention. CENTRAL NERVOUS SYSTEM: No facial droop. Speech is clear. Obeys simple commands. Moves extremities. Power nl. EXTREMITIES: No edema, no erythema seen. Results & Data Results & Data ([facility]) Vital Signs (Past 12 Hours) Vital Signs Temp Pulse Pulse Resp BP Pulse Ox O2 Del Method 12/18/22 15:07 36.6 C 76 14 117/63 99 Room Air 12/18/22 14:57 76 12/18/22 11:39 36.6 C 72 16 136/65 98 Room Air 12/18/22 08:00 Room Air 12/18/22 07:39 36.4 C L 67 18 123/63 98 Room Air 12/18/22 07:02 68
[2022-12-18] MEDS: MELATONIN 3 MG TAB PO SCH (19:33)
[2022-12-18] MEDS: CIPROFLOXACIN 500 MG TAB PO SCH (19:33)
[2022-12-18] MEDS: TERAZOSIN HCL 1 MG CAP PO SCH (19:34)
[2022-12-18] MEDS: OLANZAPINE 2.5 MG TAB PO SCH (19:34)
[2022-12-19] MEDS: OLANZapine 10 MG/2.1 ML SDV IM PRN (00:31)
[2022-12-19 06:56] LABS: Hematocrit (blood only) 36.6 % (42.0-52.0); Hemoglobin 13.8 g/dl (14.0-18.0); Mean Corpuscular Hemoglobin 34.8 pg (25.0-34.0); Mean Corpuscular Hgb Conc 37.7 g/dL (32.0-36.0); Mean Corpuscular Volume 92.4 fL (80.0-100.0); Mean Platelet Volume 9.4 fL (9.4-12.4); Platelet Count 185 K/uL (130-400); RDW Coefficient of Variation 13.9 % (11.5-14.5); RDW Standard Deviation 47.2 fL (36.4-46.3); Red Blood Count 3.96 M/uL (4.70-6.10); White Blood Count 2.67 K/ul (4.8-10.8)
[2022-12-19 07:10] LABS: Calcium 8.7 mg/dl (8.5-10.1); Creatinine Clr Calc Pharmacy 46.6 ml/min; Est GFR (African American) 74.5 ml/min; Est GFR (Non-African American) 64.3 ml/min; Magnesium 1.7 mg/dl (1.7-2.4); Phosphorus 3.6 mg/dl (2.5-4.9); Potassium 3.9 mmol/L (3.5-5.1)
[2022-12-19] MEDS: INSULIN ASPART PER UNIT SC SCH ×4 (08:30→20:09)
--- NOTE | 2022-12-19 10:17 | Electrocardiogram Report ---
Test Reason : Blood Pressure : / mmHG Vent. Rate : 087 BPM Atrial Rate : 087 BPM P-R Int : 206 ms QRS Dur : 122 ms QT Int : 406 ms P-R-T Axes : 105 077 032 degrees QTc Int : 488 ms Poor data quality, interpretation may be adversely affected Normal sinus rhythm Right bundle branch block Abnormal ECG When compared with ECG of 15-DEC-2022 18:15, T wave inversion now evident in Anterior leads Confirmed by Jayesh Lobo ([id number]) on 12/19/2022 10:16:53 AM Referred By: REFERRED SELF Confirmed By:Jayesh Lobo
[2022-12-19] MEDS: LANTUS PER UNIT CHARGE SQ SCH (10:31)
[2022-12-19] MEDS: HEPARIN SOD 5,000 UNIT/0.5 ML VIAL SQ SCH ×2 (10:32→20:04)
[2022-12-19] MEDS: ACETAMINOPHEN 325 MG TAB PO PRN (11:26)
[2022-12-19] MEDS: CIPROFLOXACIN 500 MG TAB PO SCH ×2 (11:27→20:04)
[2022-12-19] MEDS: valACYclovir HCL 500 MG TABLET PO SCH ×2 (11:28→20:04)
[2022-12-19] MEDS: ATENOLOL 25 MG TABLET PO SCH (11:28)
[2022-12-19] MEDS: FAMOTIDINE 20 MG TAB PO SCH (11:28)
[2022-12-19] MEDS: LOSARTAN POTASSIUM 25 MG TAB PO SCH (11:29)
--- NOTE | 2022-12-19 15:52 | Hospitalist Progress Note ---
Date of Service December 19, 2022 Assessment & Plan (1) Ketoacidosis: Plan 87-year-old male with PMH of HLD, allergic rhinitis, gout, HTN, near syncope, bradycardia, RBBB, first-degree AV block, diverticulum of bladder, BPH, degenerative disc disease, bilateral SNHL, balance problems who and was started on metformin/was diagnosed with diabetes a couple of months ago/did not tolerate/stopped taking and presented to PCP office 12/09 with increased thirst/urination/fogginess [OP chart reviewed on 12/16] and was prescribed jardiance on 12/09 (I called pharmacy 12/16-he filled it on 12/10). 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 Upon asking pt reports taking it for 2 weeks , which won't be possible as he filled it in 12/10. He presented to the ED 12/15 for feeling weak/tired/not being able to get up from the bed and walk because of weakness. He had an episode of nausea and vomiting the day of arrival to ED. He is being managed for the following: Weakness DKA Patient presents with nausea, vomiting x1, weakness in the setting of recent beatriz gnosis of diabetes. Admitting glucose of 307 and anion gap of 20. Admitting COVID/flu/RSV negative. Admitting WBC at baseline. Admitting chest exam clear to auscultation. Admitting UA not suggestive of UTI. 12/16 Bl Cx - NG 48 Hrs. Possible euglycemic/mildly hyperglycemic DKA due to Jardiance, status post insulin drip and DKA resolved, patient eating breakfast, improving nausea and vomiting, sliding scale insulin currently. Monitor overnight, d/w endocrinology, plan to dc him on basal insulin only. A1c this admission 9.4, nurse informatics educator consult. Glycemic pharmacy on board, appreciate recommendation.d/w pharmacy - will use 10 unit lantus in AM on DC. Continue telemetry. PT/OT, CM to assist with DC planning. Monitor and replete electrolytes. due to him being weak and needing ongoing pt/ot, he will need rehab. d/w ict educator, he will need following at DC: 1.) Glargine vial. 2.) Insulin syringe U-100 with needle 0.3 mL 31 gauge x 15-64" (6mm) 3.) [employer] Clementine 2 Calvin - 1 each. 4.) FreeStyle Clementine 2 Sensor Kit - 2 per 28 days. Acute kidney injury over CKD stage III: Admitting creatinine of 1.49 likely secondary to dehydration secondary to DKA, baseline creatinine around 1.1-1.2. Status post IV fluids. Resolved. Hospital delirium: agitation overnight, needed zyprexa. 1:1. psy onboard, sal zyprexa, c/ w melatonin. Qtc 488 today. Urinary retention/ concern for UTI: found to be retaining urine on bladder scan, no urgency to void; straight cathed 700cc on 12/17 and next time 500 cc after vazquez. Uro evaled, f/u uro as OP. c/w 12/18 cipro. f/u 12/18 urine culture. Other chronic medical conditions: Paroxysmal A-fib single event in 2015 when he was on a steroid for polymyalgia rheumatica. Continue to monitor. 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 Continue home atenolol/losartan/terazosin as appropriate. 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 Continue to monitor. DVT prophylaxis: Heparin subcu Full code Disposition: PT/OT, CM to assist with DC planning. will need placement. Admission and Anticipated Discharge Date Admission Date: December 15, 2022 Subjective Patient seen and examined at bedside as a follow-up of weakness, mild DKA. Patient was lying in bed, on room air, NAD, agitation/combative overnight/needed zyprexa, pt sleepy and denies pain or discomfort, denies any belly pain/nausea/vomiting, Per RN, is eating ok but some choking w/ food today hence speech consulted, denies headache or dizziness or fever or chills or cough or sore throat or viral-like illness. Physical Exam Physical Exam: GENERAL: sleepy and oriented x3. NAD, on RA. Appears ill/weak/frail. HEENT: No pallor, no icterus. Pupils equal, round and reactive to light. Oral mucosa moist. NECK: No JVD, no neck masses. HEART: S1 and S2 heard. Regular rate and rhythm. No murmur, no gallop. RESPIRATORY SYSTEM: Normal AP diameter. No accessory muscle use. No wheezing, no crackles. ABDOMEN: Soft, bowel sounds present, nontender, no distention. CENTRAL NERVOUS SYSTEM: No facial droop. Speech is clear. Obeys simple commands. Moves extremities. Power nl. EXTREMITIES: No edema, no erythema seen. Results & Data Results & Data ([facility]) Vital Signs (Past 12 Hours) Vital Signs Temp Pulse Pulse Resp BP Pulse Ox O2 Del Method 12/19/22 11:10 36.9 C 84 18 120/63 97 Room Air 12/19/22 07:09 71 12/19/22 07:03 36.7 C 80 18 135/53 L 94 Room Air
[2022-12-19] MEDS: TERAZOSIN HCL 1 MG CAP PO SCH (20:04)
[2022-12-19] MEDS: OLANZAPINE 2.5 MG TAB PO SCH (20:05)
[2022-12-19] MEDS: MELATONIN 3 MG TAB PO SCH (20:05)
[2022-12-19] MEDS: CALCIUM CARBONATE 500 MG CHEWABLE TAB PO PRN (21:40)
[2022-12-20 06:42] LABS: Hematocrit (blood only) 35.6 % (42.0-52.0); Hemoglobin 13.1 g/dl (14.0-18.0); Mean Corpuscular Hemoglobin 34.7 pg (25.0-34.0); Mean Corpuscular Hgb Conc 36.8 g/dL (32.0-36.0); Mean Corpuscular Volume 94.2 fL (80.0-100.0); Platelet Count 194 K/uL (130-400); RDW Coefficient of Variation 13.9 % (11.5-14.5); RDW Standard Deviation 48.4 fL (36.4-46.3); Red Blood Count 3.78 M/uL (4.70-6.10); White Blood Count 2.41 K/ul (4.8-10.8)
[2022-12-20] MEDS: FAMOTIDINE 20 MG TAB PO SCH (07:53)
[2022-12-20] MEDS: ATENOLOL 25 MG TABLET PO SCH (07:54)
[2022-12-20] MEDS: CETIRIZINE HCL 10 MG TABLET PO PRN (07:54)
[2022-12-20] MEDS: LOSARTAN POTASSIUM 25 MG TAB PO SCH (07:54)
[2022-12-20] MEDS: HEPARIN SOD 5,000 UNIT/0.5 ML VIAL SQ SCH ×2 (07:54→19:59)
[2022-12-20] MEDS: valACYclovir HCL 500 MG TABLET PO SCH ×2 (07:55→19:57)
[2022-12-20] MEDS: CIPROFLOXACIN 500 MG TAB PO SCH ×2 (07:55→19:59)
[2022-12-20] MEDS: LANTUS PER UNIT CHARGE SQ SCH (08:01)
[2022-12-20] MEDS: INSULIN ASPART PER UNIT SC SCH ×4 (08:01→20:21)
--- NOTE | 2022-12-20 15:25 | Hospitalist Progress Note ---
Date of Service December 20, 2022 Assessment & Plan (1) Ketoacidosis: Plan 87-year-old male with PMH of HLD, allergic rhinitis, gout, HTN, near syncope, bradycardia, RBBB, first-degree AV block, diverticulum of bladder, BPH, degenerative disc disease, bilateral SNHL, balance problems who and was started on metformin/was diagnosed with diabetes a couple of months ago/did not tolerate/stopped taking and presented to PCP office 12/09 with increased thirst/urination/fogginess [OP chart reviewed on 12/16] and was prescribed jardiance on 12/09 (I called pharmacy 12/16-he filled it on 12/10). 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 Upon asking pt reports taking it for 2 weeks , which won't be possible as he filled it in 12/10. He presented to the ED 12/15 for feeling weak/tired/not being able to get up from the bed and walk because of weakness. He had an episode of nausea and vomiting the day of arrival to ED. He is being managed for the following: Weakness DKA Patient presents with nausea, vomiting x1, weakness in the setting of recent beatriz gnosis of diabetes. Admitting glucose of 307 and anion gap of 20. Admitting COVID/flu/RSV negative. Admitting WBC at baseline. Admitting chest exam clear to auscultation. Admitting UA not suggestive of UTI. 12/16 Bl Cx - NG 48 Hrs. Possible euglycemic/mildly hyperglycemic DKA due to Jardiance, status post insulin drip and DKA resolved, patient eating breakfast, improving nausea and vomiting, sliding scale insulin currently. Monitor overnight, d/w endocrinology, plan to dc him on basal insulin only. A1c this admission 9.4, nurse educator consult. Glycemic pharmacy on board, appreciate recommendation.d/w pharmacy - will use 10 unit lantus in AM on DC. Continue telemetry. PT/OT, CM to assist with DC planning. Monitor and replete electrolytes. due to him being weak and needing ongoing pt/ot, he will need rehab. d/w special education paraeducator, he will need following at DC: 1.) Glargine vial. 2.) Insulin syringe U-100 with needle 0.3 mL 31 gauge x 15-64" (6mm) 3.) [email or web address] Clementine 2 [place] - 1 each. 4.) FreeStyle Clementine 2 Sensor Kit - 2 per 28 days. Acute kidney injury over CKD stage III: Admitting creatinine of 1.49 likely secondary to dehydration secondary to DKA, baseline creatinine around 1.1-1.2. Status post IV fluids. Resolved. Hospital delirium: more calm today, psy onboard, sal zyprexa, c/ w melatonin. EKG in AM to f/u QTc. Urinary retention/ concern for UTI: found to be retaining urine on bladder scan, no urgency to void; straight cathed 700cc on 12/17 and next time 500 cc after vazquez. Uro evaled, f/u uro as OP. c/w 12/18 cipro. 12/18 urine culture - e coli Other chronic medical conditions: Paroxysmal A-fib single event in 2015 when he was on a steroid for polymyalgia rheumatica. Continue to monitor. 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 Continue home atenolol/losartan/terazosin as appropriate. 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 Continue to monitor. DVT prophylaxis: Heparin subcu Full code Disposition: PT/OT, CM to assist with DC planning. will need placement. pt stable for dc to rehab. Admission and Anticipated Discharge Date Admission Date: December 15, 2022 Subjective Patient seen and examined at bedside as a follow-up of weakness, mild DKA. Patient was lying in bed, on room air, NAD, No agitation/combative overnight/not needed zyprexa, pt sitting up in chair, subjectively looks better today, denies any belly pain/nausea/vomiting, Per RN, is eating ok, speech evaled, appreciate recs, denies headache or dizziness or fever or chills or cough or sore throat or viral-like illness. Physical Exam Physical Exam: GENERAL: awake and oriented x3. NAD, on RA. Appears ill/weak/frail. HEENT: No pallor, no icterus. Pupils equal, round and reactive to light. Oral mucosa moist. NECK: No JVD, no neck masses. HEART: S1 and S2 heard. Regular rate and rhythm. No murmur, no gallop. RESPIRATORY SYSTEM: Normal AP diameter. No accessory muscle use. No wheezing, no crackles. ABDOMEN: Soft, bowel sounds present, nontender, no distention. CENTRAL NERVOUS SYSTEM: No facial droop. Speech is clear. Obeys simple commands. Moves extremities. Power nl. EXTREMITIES: No edema, no erythema seen. Results & Data Results & Data ([facility]) Vital Signs (Past 12 Hours) Vital Signs Temp Pulse Pulse Resp BP Pulse Ox O2 Del Method 12/20/22 08:00 68 12/20/22 11:45 36.7 C 70 18 146/55 H 99 Room Air 12/20/22 07:33 36.8 C 76 19 110/55 L 97 Room Air
[2022-12-20] MEDS: DOCUSATE SODIUM/SENNA 50/8.6MG TAB PO SCH (19:56)
[2022-12-20] MEDS: TERAZOSIN HCL 1 MG CAP PO SCH (19:56)
[2022-12-20] MEDS: MELATONIN 3 MG TAB PO SCH (19:58)
[2022-12-20] MEDS: OLANZAPINE 2.5 MG TAB PO SCH (19:58)
[2022-12-21] MEDS: LANTUS PER UNIT CHARGE SQ SCH (08:16)
[2022-12-21] MEDS: INSULIN ASPART PER UNIT SC SCH ×4 (08:16→20:42)
[2022-12-21] MEDS: DOCUSATE SODIUM/SENNA 50/8.6MG TAB PO SCH (08:17)
[2022-12-21] MEDS: CIPROFLOXACIN 500 MG TAB PO SCH ×2 (08:17→20:08)
[2022-12-21] MEDS: HEPARIN SOD 5,000 UNIT/0.5 ML VIAL SQ SCH ×2 (08:17→20:08)
[2022-12-21] MEDS: FAMOTIDINE 20 MG TAB PO SCH (08:17)
[2022-12-21] MEDS: ATENOLOL 25 MG TABLET PO SCH (08:18)
[2022-12-21] MEDS: LOSARTAN POTASSIUM 25 MG TAB PO SCH (08:18)
[2022-12-21] MEDS: valACYclovir HCL 500 MG TABLET PO SCH ×2 (08:18→20:08)
[2022-12-21] MEDS ORDERED: NAPROXEN 250 MG TAB PO STA (09:52)
[2022-12-21] MEDS ORDERED: LANTUS PER UNIT CHARGE SQ STA (10:20)
[2022-12-21] MEDS: DICLOFENAC SOD 1% GEL 100 GM TUBE EXT SCH ×3 (10:24→23:01)
--- NOTE | 2022-12-21 12:39 | Electrocardiogram Report ---
Test Reason : Blood Pressure : / mmHG Vent. Rate : 094 BPM Atrial Rate : 094 BPM P-R Int : 212 ms QRS Dur : 132 ms QT Int : 370 ms P-R-T Axes : 033 074 029 degrees QTc Int : 462 ms Poor data quality, interpretation may be adversely affected Sinus rhythm with 1st degree A-V block Right bundle branch block Abnormal ECG When compared with ECG of 19-DEC-2022 05:38, No significant change was found Confirmed by Henry Carbajal ([id number]) on 12/21/2022 12:38:54 PM Referred By: REFERRED SELF Confirmed By:Henry Carbajal
--- NOTE | 2022-12-21 13:20 | XRay Report ---
XR ankle LT 2V CLINICAL HISTORY: Left ankle pain. COMPARISON: None FINDINGS: Alignment of the left ankle is anatomic. There is no acute fracture. Calcifications adjace nt to the posterior and plantar aspects of the left calcaneus are noted. There is minimal spurring. T alar dome is intact. IMPRESSION: No fracture or dislocation within the left ankle. ACT 112: Negative or not required by law. Electronically signed by: Nick Ruby M.D. 12/21/2022 1:18 PM
--- NOTE | 2022-12-21 14:13 | Hospitalist Progress Note ---
Date of Service December 21, 2022 Assessment & Plan (1) Ketoacidosis: Plan 87-year-old male with PMH of HLD, allergic rhinitis, gout, HTN, near syncope, bradycardia, RBBB, first-degree AV block, diverticulum of bladder, BPH, degenerative disc disease, bilateral SNHL, balance problems who and was started on metformin/was diagnosed with diabetes a couple of months ago/did not tolerate/stopped taking and presented to PCP office 12/09 with increased thirst/urination/fogginess [OP chart reviewed on 12/16] and was prescribed jardiance on 12/09 (I called pharmacy 12/16-he filled it on 12/10). 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 Upon asking pt reports taking it for 2 weeks , which won't be possible as he filled it in 12/10. He presented to the ED 12/15 for feeling weak/tired/not being able to get up from the bed and walk because of weakness. He had an episode of nausea and vomiting the day of arrival to ED. He is being managed for the following: Weakness DKA Patient presents with nausea, vomiting x1, weakness in the setting of recent beatriz gnosis of diabetes. Admitting glucose of 307 and anion gap of 20. Admitting COVID/flu/RSV negative. Admitting WBC at baseline. Admitting chest exam clear to auscultation. Admitting UA not suggestive of UTI. 12/16 Bl Cx - NG 48 Hrs. Possible euglycemic/mildly hyperglycemic DKA due to Jardiance, status post insulin drip and DKA resolved, patient eating breakfast, improving nausea and vomiting, sliding scale insulin currently. Monitor overnight, d/w endocrinology, plan to dc him on basal insulin only. A1c this admission 9.4, informatics educator consult. Glycemic pharmacy on board, appreciate recommendation.d/w pharmacy - will use 10 unit lantus in AM on DC. Continue telemetry. PT/OT, CM to assist with DC planning. Monitor and replete electrolytes. due to him being weak and needing ongoing pt/ot, he will need rehab. d/w primary special educator, he will need following at DC: 1.) Glargine vial. 2.) Insulin syringe U-100 with needle 0.3 mL 31 gauge x 15-64" (6mm) 3.) [employer] Clementine 2 [place] - 1 each. 4.) FreeStyle Clementine 2 Sensor Kit - 2 per 28 days. Acute kidney injury over CKD stage III: Admitting creatinine of 1.49 likely secondary to dehydration secondary to DKA, baseline creatinine around 1.1-1.2. Status post IV fluids. Resolved. Hospital delirium: more calm today, psy onboard, sal zyprexa, c/ w melatonin. QTc 462 today, has not needed prn zyprexa in the last 2 nights. Urinary retention/ concern for UTI: found to be retaining urine on bladder scan, no urgency to void; straight cathed 700cc on 12/17 and next time 500 cc after vazquez. Uro evaled, f/u uro as OP. c/w 12/18 cipro. 12/18 urine culture - e coli Osteoarthritic pain: c/w tylenol or voltaren gel, will try to avoid NSAIDs or opiates as much as possible. Reviewed Left ankle XR w/ no acute findings. Other chronic medical conditions: Paroxysmal A-fib single event in 2015 when he was on a steroid for polymyalgia rheumatica. Continue to monitor. 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 Continue home atenolol/losartan/terazosin as appropriate. 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 Continue to monitor. DVT prophylaxis: Heparin subcu Full code Disposition: PT/OT, CM to assist with DC planning. will need placement. pt stable for dc to rehab. Admission and Anticipated Discharge Date Admission Date: December 15, 2022 Subjective Patient seen and examined at bedside as a follow-up of weakness, mild DKA. Patient was lying in bed, on room air, NAD, No agitation/combative overnight/not needed zyprexa for last 2 nights, pt lying in bed, complains of joint pain with ambulation/not during exam, denies any belly pain/nausea/vomiting, Per RN, is eating ok, had BM yesterday, denies headache or dizziness or fever or chills or cough or sore throat or viral-like illness. Physical Exam Physical Exam: GENERAL: awake and oriented x3. NAD, on RA. Appears ill/weak/frail. HEENT: No pallor, no icterus. Pupils equal, round and reactive to light. Oral mucosa moist. NECK: No JVD, no neck masses. HEART: S1 and S2 heard. Regular rate and rhythm. No murmur, no gallop. RESPIRATORY SYSTEM: Normal AP diameter. No accessory muscle use. No wheezing, no crackles. ABDOMEN: Soft, bowel sounds present, nontender, no distention. CENTRAL NERVOUS SYSTEM: No facial droop. Speech is clear. Obeys simple commands. Moves extremities. Power nl. EXTREMITIES: No edema, no erythema seen. Results & Data Results & Data ([facility]) Vital Signs (Past 12 Hours) Vital Signs Temp Pulse Pulse Resp BP Pulse Ox O2 Del Method 12/21/22 11:05 36.6 C 86 18 116/80 97 Room Air 12/21/22 08:00 93 H 12/21/22 07:35 36.6 C 88 19 133/54 L 97 Room Air 12/21/22 03:46 36.7 C 90 18 157/77 H 99 Room Air
--- NOTE | 2022-12-21 14:26 | Pharmacy Report ---
Pharmacy Glycemic Short Note 2 - Date of Service December 21, 2022 - Glycemic Short BSG Results (Last 24 hours): 12/20/22 12/20/22 12/20/22 16:20 16:23 19:44 POC Glucose 341 H* 341 H* 194 H 12/21/22 12/21/22 07:58 12:02 POC Glucose 228 H 197 H OUTPATIENT ANTIDIABETIC REGIMEN: * Metformin 1gm PO daily * empagliflozin 10mg PO daily HbA1C: 9.4% (12/15/22) ASSESSMENT: 12/21: * BSGs [phone]/dL the last 24h. Patient received 20 units of basal and 26 units of bolus insulin yesterday. * On PO antibiotics and tolerating diet. * Given elevated fasting BSG of 228mg/dL, will increase basal today to 25 units. No change to Novolog parameters - tightened to 30/9 on 12/20. Will reassess basal tomorrow AM. 12/18 * Stressors stable. * Post-prandial BSG's all >180 mg/dL yesterday. Will tighten CHO ratio. * AM fasting BSG within goal range - no change to Lantus 12/17 * BSG's in or only slightly above goal range since transitioning off insulin drip yesterday * Looser than weight-based moderate stress CHO ratio effectively managing BSG's - continue same * AM fasting with notable trend down since yesterday AM and basal insulin not yet at steady state. Lower prandial doses required noted. Will therefore decrease basal insulin 12/16 * Patient is an 87 year old male who presented to the ED with weakness and an episode of N/V. History of recent type 2 DM diagnosis on metformin, which he was reportedly not tolerating and was switched to empagliflozin. Initial labs consistent with mild DKA - pH-7.28, AG-20, bicarb-17, glucose-307. Patient started on an insulin drip per DKA protocol around midnight. * Insulin drip running consistently at 4 unit/hr this AM. D51/2 NS w/ 20mEq KCl running @ 200ml/hr. Labs this AM - pH-7.39, AG-7, bicarb-25 and BSGs within goal range. Will begin to transition to SQ. * Lantus 20 units SQ X 1 (~0.3unit/kg, ~wt/stress 3 with BID dosing). Novolog ACHS with carb ratio to cover breakfast. Diet ordered. IVF to d/c once he eats. Overlap insulin drip with Lantus for at least 2 hours. Novolog overnight checks tonight and HS Lantus scale. PLAN FOR INPATIENT GLYCEMIC CONTROL: * Hold outpatient oral diabetes medications * Basal insulin * Lantus 25 units SQ qAM * Bolus insulin * NovoLog per scale ACHS or Q6hrs while NPO * Goal Range: Low 110 mg/dL - High 140 mg/dL * Correction Factor: 30 mg/dL/unit * Nutritional / Prandial insulin per carb ratio of 1 unit per 9 grams CHO consumed
[2022-12-21] MEDS: hydrOXYzine HCl 25 MG TAB PO PRN (20:08)
[2022-12-21] MEDS: OLANZAPINE 2.5 MG TAB PO SCH (20:08)
[2022-12-21] MEDS: MELATONIN 3 MG TAB PO SCH (20:08)
[2022-12-21] MEDS: TERAZOSIN HCL 1 MG CAP PO SCH (20:08)
[2022-12-22] MEDS: DICLOFENAC SOD 1% GEL 100 GM TUBE EXT SCH ×4 (04:39→23:19)
[2022-12-22] MEDS: INSULIN ASPART PER UNIT SC SCH ×4 (09:03→20:43)
[2022-12-22] MEDS: LANTUS PER UNIT CHARGE SQ SCH (09:03)
[2022-12-22] MEDS: HEPARIN SOD 5,000 UNIT/0.5 ML VIAL SQ SCH ×2 (09:04→20:51)
[2022-12-22] MEDS: LOSARTAN POTASSIUM 25 MG TAB PO SCH (09:05)
[2022-12-22] MEDS: DOCUSATE SODIUM/SENNA 50/8.6MG TAB PO SCH (09:05)
[2022-12-22] MEDS: FAMOTIDINE 20 MG TAB PO SCH (09:05)
[2022-12-22] MEDS: CIPROFLOXACIN 500 MG TAB PO SCH ×2 (09:05→20:48)
[2022-12-22] MEDS: ATENOLOL 25 MG TABLET PO SCH (09:05)
[2022-12-22] MEDS: valACYclovir HCL 500 MG TABLET PO SCH ×2 (09:05→20:49)
--- NOTE | 2022-12-22 12:48 | Pharmacy Report ---
Pharmacy Glycemic Short Note 2 - Date of Service December 22, 2022 - Glycemic Short BSG Results (Last 24 hours): 12/21/22 12/21/22 12/22/22 17:42 20:21 07:18 POC Glucose 212 H 133 H 150 H 12/22/22 11:29 POC Glucose 128 H OUTPATIENT ANTIDIABETIC REGIMEN: * Metformin 1gm PO daily * empagliflozin 10mg PO daily HbA1C: 9.4% (12/15/22) ASSESSMENT: 12/22: * BSGs [phone]/dL the last 24h. Patient received 25 units of basal and 24 units of bolus insulin yesterday. * Tolerating a diet, continues on PO antibiotics. * Given fasting BSG within acceptable range, will continue with 25 units of basal daily. No change to Novolog parameters. 12/21: * BSGs [phone]/dL the last 24h. Patient received 20 units of basal and 26 units of bolus insulin yesterday. * On PO antibiotics and tolerating diet. * Given elevated fasting BSG of 228mg/dL, will increase basal today to 25 units. No change to Novolog parameters - tightened to 30/9 on 12/20. Will reassess basal tomorrow AM. 12/18 * Stressors stable. * Post-prandial BSG's all >180 mg/dL yesterday. Will tighten CHO ratio. * AM fasting BSG within goal range - no change to Lantus 12/17 * BSG's in or only slightly above goal range since transitioning off insulin drip yesterday * Looser than weight-based moderate stress CHO ratio effectively managing BSG's - continue same * AM fasting with notable trend down since yesterday AM and basal insulin not yet at steady state. Lower prandial doses required noted. Will therefore decrease basal insulin 12/16 * Patient is an 87 year old male who presented to the ED with weakness and an episode of N/V. History of recent type 2 DM diagnosis on metformin, which he was reportedly not tolerating and was switched to empagliflozin. Initial labs consistent with mild DKA - pH-7.28, AG-20, bicarb-17, glucose-307. Patient started on an insulin drip per DKA protocol around midnight. * Insulin drip running consistently at 4 unit/hr this AM. D51/2 NS w/ 20mEq KCl running @ 200ml/hr. Labs this AM - pH-7.39, AG-7, bicarb-25 and BSGs within goal range. Will begin to transition to SQ. * Lantus 20 units SQ X 1 (~0.3unit/kg, ~wt/stress 3 with BID dosing). Novolog ACHS with carb ratio to cover breakfast. Diet ordered. IVF to d/c once he eats. Overlap insulin drip with Lantus for at least 2 hours. Novolog overnight checks tonight and HS Lantus scale. PLAN FOR INPATIENT GLYCEMIC CONTROL: * Hold outpatient oral diabetes medications * Basal insulin * Lantus 25 units SQ qAM * Bolus insulin * NovoLog per scale ACHS or Q6hrs while NPO * Goal Range: Low 110 mg/dL - High 140 mg/dL * Correction Factor: 30 mg/dL/unit * Nutritional / Prandial insulin per carb ratio of 1 unit per 9 grams CHO consumed
--- NOTE | 2022-12-22 14:54 | Hospitalist Progress Note ---
Date of Service December 22, 2022 Assessment & Plan (1) Ketoacidosis: Plan 87-year-old male with PMH of HLD, allergic rhinitis, gout, HTN, near syncope, bradycardia, RBBB, first-degree AV block, diverticulum of bladder, BPH, degenerative disc disease, bilateral SNHL, balance problems who and was started on metformin/was diagnosed with diabetes a couple of months ago/did not tolerate/stopped taking and presented to PCP office 12/09 with increased thirst/urination/fogginess [OP chart reviewed on 12/16] and was prescribed jardiance on 12/09 (I called pharmacy 12/16-he filled it on 12/10). 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 Upon asking pt reports taking it for 2 weeks , which won't be possible as he filled it in 12/10. He presented to the ED 12/15 for feeling weak/tired/not being able to get up from the bed and walk because of weakness. He had an episode of nausea and vomiting the day of arrival to ED. He is being managed for the following: Weakness DKA Patient presents with nausea, vomiting x1, weakness in the setting of recent beatriz gnosis of diabetes. Admitting glucose of 307 and anion gap of 20. Admitting COVID/flu/RSV negative. Admitting WBC at baseline. Admitting chest exam clear to auscultation. Admitting UA not suggestive of UTI. 12/16 Bl Cx - NG 48 Hrs. Possible euglycemic/mildly hyperglycemic DKA due to Jardiance, status post insulin drip and DKA resolved, patient eating breakfast, improving nausea and vomiting, sliding scale insulin currently. Monitor overnight, d/w endocrinology, plan to dc him on basal insulin only. A1c this admission 9.4, special educator consult. Glycemic pharmacy on board, appreciate recommendation.d/w pharmacy - will use 10 unit lantus in AM on DC. Continue telemetry. PT/OT, CM to assist with DC planning. Monitor and replete electrolytes. due to him being weak and needing ongoing pt/ot, he will need rehab. family life educator evaled, he will need following at DC: 1.) Glargine vial. 2.) Insulin syringe U-100 with needle 0.3 mL 31 gauge x 15-64" (6mm) 3.) [employer] Clementine 2 [place] - 1 each. 4.) [employer] Clementine 2 Sensor Kit - 2 per 28 days. Acute kidney injury over CKD stage III: Admitting creatinine of 1.49 likely secondary to dehydration secondary to DKA, baseline creatinine around 1.1-1.2. Status post IV fluids. Resolved. Hospital delirium: more calm today, psy onboard, sal zyprexa, c/ w melatonin. QTc 462 today, has not needed prn zyprexa in the last 3 nights. Urinary retention/ concern for UTI: found to be retaining urine on bladder scan, no urgency to void; straight cathed 700cc on 12/17 and next time 500 cc after vazquez. Uro evaled, f/u uro as OP. c/w 12/18 cipro. 12/18 urine culture - e coli Osteoarthritic pain: c/w tylenol or voltaren gel, will try to avoid NSAIDs or opiates as much as possible. Reviewed 12/21 Left ankle XR w/ no acute findings. Other chronic medical conditions: Paroxysmal A-fib single event in 2015 when he was on a steroid for polymyalgia rheumatica. Continue to monitor. 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 Continue home atenolol/losartan/terazosin as appropriate. 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 Continue to monitor. DVT prophylaxis: Heparin subcu Full code Disposition: PT/OT, CM to assist with DC planning. will need placement. pt stable for dc to rehab. Admission and Anticipated Discharge Date Admission Date: December 15, 2022 Subjective Patient seen and examined at bedside as a follow-up of weakness, mild DKA. Patient was lying in bed, on room air, NAD, No agitation/combative overnight/not needed zyprexa for last 3 nights, pt lying in bed, reports no pain today, denies any belly pain/nausea/vomiting, reports eating ok and moving bowels yesterday. denies headache or dizziness or fever or chills or cough or sore throat or viral-like illness. Physical Exam 2 Physical Exam: GENERAL: awake and oriented x3. NAD, on RA. Appears ill/weak/frail. HEENT: No pallor, no icterus. Pupils equal, round and reactive to light. Oral mucosa moist. NECK: No JVD, no neck masses. HEART: S1 and S2 heard. Regular rate and rhythm. No murmur, no gallop. RESPIRATORY SYSTEM: Normal AP diameter. No accessory muscle use. No wheezing, no crackles. ABDOMEN: Soft, bowel sounds present, nontender, no distention. CENTRAL NERVOUS SYSTEM: No facial droop. Speech is clear. Obeys simple commands. Moves extremities. Power nl. EXTREMITIES: No edema, no erythema seen. Results & Data Results & Data ([facility]) Vital Signs (Past 12 Hours) Vital Signs Temp Pulse Pulse Resp BP Pulse Ox O2 Del Method 12/22/22 13:20 116/69 12/22/22 12:24 36.9 C 51 L 14 92/46 L 98 Room Air 12/22/22 07:41 69 12/22/22 07:32 36.8 C 74 14 119/56 L 97 Room Air
[2022-12-22] MEDS: MELATONIN 3 MG TAB PO SCH (20:48)
[2022-12-22] MEDS: TERAZOSIN HCL 1 MG CAP PO SCH (20:49)
[2022-12-22] MEDS: OLANZAPINE 2.5 MG TAB PO SCH (20:50)
[2022-12-23] MEDS: DICLOFENAC SOD 1% GEL 100 GM TUBE EXT SCH ×4 (06:28→23:48)
[2022-12-23 07:40] LABS: Hematocrit (blood only) 34.4 % (42.0-52.0); Hemoglobin 12.5 g/dl (14.0-18.0); Mean Corpuscular Hemoglobin 34.3 pg (25.0-34.0); Mean Corpuscular Hgb Conc 36.3 g/dL (32.0-36.0); Mean Corpuscular Volume 94.5 fL (80.0-100.0); Mean Platelet Volume 8.8 fL (9.4-12.4); Platelet Count 250 K/uL (130-400); RDW Coefficient of Variation 13.7 % (11.5-14.5); RDW Standard Deviation 47.8 fL (36.4-46.3); Red Blood Count 3.64 M/uL (4.70-6.10); White Blood Count 1.95 K/ul (4.8-10.8)
[2022-12-23] MEDS: INSULIN ASPART PER UNIT SC SCH ×4 (07:43→21:20)
[2022-12-23] MEDS: LANTUS PER UNIT CHARGE SQ SCH (07:55)
[2022-12-23 08:00] LABS: BUN Creatinine Ratio 25.6 (10-20); Calcium 8.5 mg/dl (8.5-10.1); Creatinine Clr Calc Pharmacy 39.9 ml/min; Est GFR (Non-African American) 53.5 ml/min; Magnesium 1.7 mg/dl (1.7-2.4); Phosphorus 2.8 mg/dl (2.5-4.9); Potassium 3.8 mmol/L (3.5-5.1)
--- NOTE | 2022-12-23 09:23 | Hospitalist Progress Note ---
Date of Service December 23, 2022 Assessment & Plan (1) Ketoacidosis: Plan 87 yo male with PMH of HLD, allergic rhinitis, gout, HTN, near syncope, bradycardia, RBBB, first-degree AV block, diverticulum of bladder, BPH, degenerative disc disease, bilateral SNHL, balance problems who was started on metformin/was diagnosed with diabetes a couple of months ago/did not tolerate/stopped taking and presented to PCP office 12/09 with increased thirst/urination/fogginess [OP chart reviewed on 12/16] and was prescribed jardiance on 12/09 (I called pharmacy 12/16-he filled it on 12/10). 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 Upon asking pt reports taking it for 2 weeks, which won't be possible as he filled it in 12/10. He presented to the ED 12/15 for feeling weak/tired/not being able to get up from the bed and walk because of weakness. He had an episode of nausea and vomiting the day of arrival to ED. He is being managed for the following: Weakness DKA Patient presents with nausea, vomiting x1, weakness in the setting of recent diagnosis of diabetes. Admitting glucose of 307 and anion gap of 20. Admitting COVID/flu/RSV negative. Admitting WBC at baseline. Admitting chest exam clear to auscultation. Admitting UA not suggestive of UTI. 12/16 Bl Cx - NG 48 Hrs. Possible euglycemic/mildly hyperglycemic DKA due to Jardiance, status post insulin drip and DKA resolved, patient eating breakfast, improving nausea and vomiting, sliding scale insulin currently. d/w endocrinology, plan to dc him on basal insulin only. A1c this admission 9.4, certified breastfeeding educator consult. Glycemic pharmacy on board, appreciate recommendation.d/w pharmacy - will use 10 unit lantus in AM on DC. Continue telemetry. PT/OT, CM to assist with DC planning. Monitor and replete electrolytes. due to him being weak and needing ongoing pt/ot, he will need rehab. music educator evaled, he will need following at DC: 1.) Glargine vial. 2.) Insulin syringe U-100 with needle 0.3 mL 31 gauge x 15-64" (6mm) 3.) FreeStyle Clementine 2 [place] - 1 each. 4.) FreeStyle Clementine 2 Sensor Kit - 2 per 28 days. Acute kidney injury over CKD stage III: Admitting creatinine of 1.49 likely secondary to dehydration secondary to DKA, baseline creatinine around 1.1-1.2. Status post IV fluids. Resolved. Hospital delirium: more calm today, psych onboard, sal zyprexa, c/ w melatonin. QTc 462, has not needed prn zyprexa since 12/19 Urinary retention/ concern for UTI: found to be retaining urine on bladder scan, no urgency to void; straight cathed 700cc on 12/17 and next time 500 cc after vazquez. Uro evaled, f/u uro as OP. c/w 12/18 cipro. 12/18 urine culture - e coli Osteoarthritic pain: c/w tylenol or voltaren gel, will try to avoid NSAIDs or opiates as much as possible. Reviewed 12/21 Left ankle XR w/ no acute findings. Other chronic medical conditions: Paroxysmal A-fib single event in 2015 when he was on a steroid for polymyalgia rheumatica. Continue to monitor. 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 Continue home atenolol/losartan/terazosin as appropriate. 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 Continue to monitor. DVT prophylaxis: Heparin subcu Full code Disposition: PT/OT, CM to assist with DC planning. will need placement. pt stable for dc to rehab. Admission and Anticipated Discharge Date Admission Date: December 15, 2022 Subjective Patient seen and examined at bedside as a follow-up of weakness, mild DKA. Patient sitting up in chair, in NAD. No agitation last prn zyprexa overnight given on 12/19 Currently pt reports no complaints - denies any fever, chills, chest pain, shortness of breath, and. pain/nausea/vomiting denies headache or dizziness Review of Systems Review of Systems: All systems reviewed & are unremarkable except as noted in Subjective Physical Exam Physical Exam: GENERAL: The patient is alert and oriented, not in acute distress. HEENT: NC/AT. EOMI. Pupils equal, round and reactive to light. Oral mucosa dry. NECK: No JVD, no neck masses. CARDIOVASCULAR: S1 and S2 heard. Regular rate and rhythm. No murmur, no gallop. RESPIRATORY: Normal AP diameter. No accessory muscle use. No wheezing, no crackles. ABDOMEN: Soft, bowel sounds present, nontender, no distention. : Vazquez cath placed - clear yellow urine draining NEURO: Alert and oriented, somewhat hard of hearing. Speech is clear. No facial droop. Obeys simple commands. Insight is okay. Moves extremities. EXTREMITIES: No edema, no erythema. Results & Data Results & Data ([facility] [place]) Vital Signs (Past 12 Hours) Vital Signs Temp Pulse Pulse Resp BP Pulse Ox O2 Del Method 12/23/22 08:31 36.3 C L 89 16 134/87 97 Room Air 12/23/22 03:38 36.5 C 74 18 117/56 L 98 Room Air 12/22/22 23:00 88 12/22/22 22:00 83 19 101/50 L 95 Room Air Laboratory Results 12/23/22 12/23/22 12/23/22 Range/Units 07:32 06:57 06:57 WBC 1.95 L (4.8-10.8) K/ul RBC 3.64 L (4.70-6.10) M/uL Hgb 12.5 L (14.0-18.0) g/dl Hct 34.4 L (42.0-52.0) % MCV 94.5 (80.0-100.0) fL MCH 34.3 H (25.0-34.0) pg MCHC 36.3 H (32.0-36.0) g/dL RDW Std Deviation 47.8 H (36.4-46.3) fL RDW Coeff of Nam 13.7 (11.5-14.5) % Plt Count 250 (130-400) K/uL MPV 8.8 L (9.4-12.4) fL Sodium 137 (136-145) mmol/L Potassium 3.8 (3.5-5.1) mmol/L Chloride 106 (98-107) mmol/L Carbon Dioxide 26 (21-32) mmol/L Anion Gap 5 (3-11) BUN 31 H (6-23) mg/dl Creatinine 1.21 (0.6-1.4) mg/dl Est Cr Clr Drug Dosing 39.9 ml/min Est GFR ( Amer) 62.0 ml/min Est GFR (Non-Af Amer) 53.5 ml/min BUN/Creatinine Ratio 25.6 H (10-20) Glucose 232 H (70-99(Fasting)) mg/dl POC Glucose 233 H (70-99) mg/dl Calcium 8.5 (8.5-10.1) mg/dl Phosphorus 2.8 (2.5-4.9) mg/dl Magnesium 1.7 (1.7-2.4) mg/dl 12/22/22 12/22/22 12/22/22 Range/Units 20:08 16:39 11:29 WBC (4.8-10.8) K/ul RBC (4.70-6.10) M/uL Hgb (14.0-18.0) g/dl Hct (42.0-52.0) % MCV (80.0-100.0) fL MCH (25.0-34.0) pg MCHC (32.0-36.0) g/dL RDW Std Deviation (36.4-46.3) fL RDW Coeff of Nam (11.5-14.5) % Plt Count (130-400) K/uL MPV (9.4-12.4) fL Sodium (136-145) mmol/L Potassium (3.5-5.1) mmol/L Chloride (98-107) mmol/L Carbon Dioxide (21-32) mmol/L Anion Gap (3-11) BUN (6-23) mg/dl Creatinine (0.6-1.4) mg/dl Est Cr Clr Drug Dosing ml/min Est GFR ( Amer) ml/min Est GFR (Non-Af Amer) ml/min BUN/Creatinine Ratio (10-20) Glucose (70-99(Fasting)) mg/dl POC Glucose 180 H 120 H 128 H (70-99) mg/dl Calcium (8.5-10.1) mg/dl Phosphorus (2.5-4.9) mg/dl Magnesium (1.7-2.4) mg/dl Medications Administered Current Inpatient Medications Acetaminophen (Acetaminophen 325 Mg Tab) 650 mg PO Q4H PRN PRN Reason: Pain or Fever Stop: 01/15/23 00:02 Last Admin: 12/19/22 11:26 Dose: 650 mg Atenolol (Atenolol 25 Mg Tablet) [facility] Stop: 01/15/23 08:59 Last Admin: 12/22/22 09:05 Dose: 25 mg Azelastine HCl (Azelastine Hcl 0.1% Nasal 200 Sprays/27,400 Mcg Btl) 2 sprays NA BID PRN PRN Reason: Congestion Stop: 01/15/23 00:02 Calcium Carbonate (Calcium Carbonate 500 Mg Chewable Tab) 1,000 mg PO BID PRN PRN Reason: Indigestion Stop: 01/15/23 08:00 Last Admin: 12/19/22 21:40 Dose: 1,000 mg Cetirizine HCl (Cetirizine Hcl 10 Mg Tablet) 10 mg PO DAILY PRN PRN Reason: Allergy Symptoms Stop: 01/15/23 00:02 Last Admin: 12/20/22 07:54 Dose: 10 mg Ciprofloxacin (Ciprofloxacin 500 Mg Tab) 500 mg PO BID [facility] Stop: 12/28/22 20:59 Last Admin: 12/22/22 20:48 Dose: 500 mg Dextrose (Dextrose 50% 50 Ml Syringe) 25 - 50 ml IV UD PRN; Protocol PRN Reason: Hypoglycemia Protocol Stop: 01/15/23 00:44 Last Admin: 12/16/22 03:06 Dose: 25 ml Diclofenac Sodium (Diclofenac Sod 1% Gel 100 Gm Tube) 4 gm EXT Q6 SAL; Protocol Stop: 01/20/23 09:59 Last Admin: 12/23/22 06:28 Dose: Not Given Famotidine (Famotidine 20 Mg Tab) 20 mg PO [facility] Stop: 01/15/23 11:14 Last Admin: 12/22/22 09:05 Dose: 20 mg Glucagon (Glucagon For Inj 1 Mg Vial) 1 mg IM UD PRN; Protocol PRN Reason: Hypoglycemia Protocol Stop: 01/15/23 00:44 Glucose (Glucose 40% Gel 15 Gm Tube) 15 - 30 gm PO UD PRN; Protocol PRN Reason: Hypoglycemia Protocol Stop: 01/15/23 00:44 Glucose (Glucose 10 Tab/Tube) 4 - 8 tab PO UD PRN; Protocol PRN Reason: Hypoglycemia Protocol Stop: 01/15/23 00:44 Heparin Sodium (Porcine) (Heparin Sod 5,000 Unit/0.5 Ml Vial) 5,000 units SQ Q12 [facility] Stop: 01/15/23 08:59 Last Admin: 12/22/22 20:51 Dose: 5,000 units Hydroxyzine HCl (Hydroxyzine Hcl 25 Mg Tab) 25 mg PO TID PRN PRN Reason: Itching Stop: 01/15/23 00:02 Last Admin: 12/21/22 20:08 Dose: 25 mg Insulin Aspart (Insulin Aspart Per Unit) 0 units SC ACHS [facility] Stop: 01/15/23 08:14 Last Admin: 12/23/22 07:43 Dose: 7 units Insulin Glargine (Lantus Per Unit Charge) 25 units SQ QAM [facility] Stop: 01/21/23 08:59 Last Admin: 12/23/22 07:55 Dose: 25 units Losartan Potassium (Losartan Potassium 25 Mg Tab) 25 mg PO QAM [facility] Stop: 01/15/23 08:59 Last Admin: 12/22/22 09:05 Dose: 25 mg Melatonin (Melatonin 3 Mg Tab) 3 mg PO HS [facility] Stop: 01/17/23 20:59 Last Admin: 12/22/22 20:48 Dose: 3 mg Miscellaneous (Carbohydrates For Hypoglycemia ) 15 - 30 gm PO UD PRN PRN Reason: Hypoglycemia Treatment Stop: 01/15/23 00:44 Miscellaneous Information (Pharmacy Glycemic Mgmt Consult) 1 each N/A UD PRN PRN Reason: Consult Stop: 01/15/23 00:02 Nitroglycerin (Nitroglycerin Sl 0.4 Mg/Tab Tab) 0.4 mg SL Q5M PRN PRN Reason: Chest Pain Stop: 01/15/23 00:02 Olanzapine (Olanzapine 10 Mg/2.1 Ml Sdv) 2.5 mg IM Q4H PRN PRN Reason: Anxiety/Agitation Stop: 01/15/23 19:24 Last Admin: 12/19/22 00:31 Dose: 2.5 mg Olanzapine (Olanzapine 2.5 Mg Tab) 2.5 mg PO HS [facility] Stop: 01/17/23 20:59 Last Admin: 12/22/22 20:50 Dose: 2.5 mg Ondansetron HCl (Ondansetron Inj 2 Mg/Ml 2 Ml Vial) 4 mg IV Q6H PRN PRN Reason: Nausea Stop: 01/15/23 00:02 Polyethylene Glycol (Polyethylene (Miralax) 17 Gm Pack) 17 gm PO DAILY PRN PRN Reason: Constipation Stop: 01/15/23 00:02 Last Admin: 12/16/22 09:49 Dose: 17 gm Senna/Docusate Sodium (Docusate Sodium/Senna 50/8.6mg Tab) 1 tab PO QAM [facility] Stop: 01/19/23 19:44 Last Admin: 12/22/22 09:05 Dose: 1 tab Terazosin HCl (Terazosin Hcl 1 Mg Cap) 4 mg PO HS [facility] Stop: 01/15/23 20:59 Last Admin: 12/22/22 20:49 Dose: 4 mg Valacyclovir HCl (Valacyclovir Hcl 500 Mg Tablet) 1,000 mg PO BID [facility] Stop: 01/15/23 08:59 Last Admin: 12/22/22 20:49 Dose: 1,000 mg
[2022-12-23] MEDS: valACYclovir HCL 500 MG TABLET PO SCH ×2 (09:26→20:45)
[2022-12-23] MEDS: LOSARTAN POTASSIUM 25 MG TAB PO SCH (09:26)
[2022-12-23] MEDS: HEPARIN SOD 5,000 UNIT/0.5 ML VIAL SQ SCH ×2 (09:27→20:48)
[2022-12-23] MEDS: CIPROFLOXACIN 500 MG TAB PO SCH ×2 (09:27→20:48)
[2022-12-23] MEDS: DOCUSATE SODIUM/SENNA 50/8.6MG TAB PO SCH (09:27)
[2022-12-23] MEDS: ATENOLOL 25 MG TABLET PO SCH (09:28)
[2022-12-23] MEDS: FAMOTIDINE 20 MG TAB PO SCH (09:28)
--- NOTE | 2022-12-23 12:22 | Pharmacy Report ---
Pharmacy Glycemic Short Note 2 - Date of Service December 23, 2022 - Glycemic Short BSG Results (Last 24 hours): 12/22/22 12/22/22 12/23/22 16:39 20:08 06:57 Glucose 232 H POC Glucose 120 H 180 H 12/23/22 12/23/22 07:32 11:23 Glucose POC Glucose 233 H 188 H OUTPATIENT ANTIDIABETIC REGIMEN: * Metformin 1gm PO daily * empagliflozin 10mg PO daily HbA1C: 9.4% (12/15/22) ASSESSMENT: 12/23: * BSGs [id number]/dL. Patient received 25 units of basal and 10 units of bolus insulin yesterday. * Tolerating diet, continues PO abx. * Will titrate Lantus to 27 units starting tomorrow d/t elevated fasting this AM. No change to Novolog. 12/22: * BSGs 186-146-571-128mg/dL the last 24h. Patient received 25 units of basal and 24 units of bolus insulin yesterday. * Tolerating a diet, continues on PO antibiotics. * Given fasting BSG within acceptable range, will continue with 25 units of basal daily. No change to Novolog parameters. 12/21: * BSGs [phone]/dL the last 24h. Patient received 20 units of basal and 26 units of bolus insulin yesterday. * On PO antibiotics and tolerating diet. * Given elevated fasting BSG of 228mg/dL, will increase basal today to 25 units. No change to Novolog parameters - tightened to 30/9 on 12/20. Will reassess basal tomorrow AM. 12/18 * Stressors stable. * Post-prandial BSG's all >180 mg/dL yesterday. Will tighten CHO ratio. * AM fasting BSG within goal range - no change to Lantus 12/17 * BSG's in or only slightly above goal range since transitioning off insulin drip yesterday * Looser than weight-based moderate stress CHO ratio effectively managing BSG's - continue same * AM fasting with notable trend down since yesterday AM and basal insulin not yet at steady state. Lower prandial doses required noted. Will therefore decrease basal insulin 12/16 * Patient is an 87 year old male who presented to the ED with weakness and an episode of N/V. History of recent type 2 DM diagnosis on metformin, which he was reportedly not tolerating and was switched to empagliflozin. Initial labs consistent with mild DKA - pH-7.28, AG-20, bicarb-17, glucose-307. Patient started on an insulin drip per DKA protocol around midnight. * Insulin drip running consistently at 4 unit/hr this AM. D51/2 NS w/ 20mEq KCl running @ 200ml/hr. Labs this AM - pH-7.39, AG-7, bicarb-25 and BSGs within goal range. Will begin to transition to SQ. * Lantus 20 units SQ X 1 (~0.3unit/kg, ~wt/stress 3 with BID dosing). Novolog ACHS with carb ratio to cover breakfast. Diet ordered. IVF to d/c once he eats. Overlap insulin drip with Lantus for at least 2 hours. Novolog overnight checks tonight and HS Lantus scale. PLAN FOR INPATIENT GLYCEMIC CONTROL: * Hold outpatient oral diabetes medications * Basal insulin * Lantus 27 units SQ qAM * Bolus insulin * NovoLog per scale ACHS or Q6hrs while NPO * Goal Range: Low 110 mg/dL - High 140 mg/dL * Correction Factor: 30 mg/dL/unit * Nutritional / Prandial insulin per carb ratio of 1 unit per 9 grams CHO consumed
[2022-12-23] MEDS: MAGNESIUM OXIDE 400 MG TAB PO SCH (12:59)
[2022-12-23] MEDS ORDERED: POLYETHYLENE (MIRALAX) 17 GM PACK PO ONE (16:14)
[2022-12-23] MEDS: OLANZapine 10 MG/2.1 ML SDV IM PRN (17:25)
[2022-12-23 20:31] LABS: Appearance Urine Clear (Clear); Bacteria Urine Automated Negative (Negative); Bilirubin Urine Negative (Negative); Blood Urine 2+ (Negative); Color Urine Yellow; Glucose Urine UA Trace (Negative); Ketones Urine Negative (Negative); Leukocyte Esterase Urine Trace (Negative); Nitrite Urine Negative (Negative); Protein Urine Trace (Negative); Specific Gravity Urine 1.014 (1.000-1.030); Urobilinogen Urine Negative (Negative); pH Urine 5.5 (4.5-7.5)
[2022-12-23] MEDS: MELATONIN 3 MG TAB PO SCH (20:48)
[2022-12-23] MEDS: OLANZAPINE 2.5 MG TAB PO SCH (20:49)
[2022-12-23] MEDS: TERAZOSIN HCL 1 MG CAP PO SCH (20:49)
[2022-12-24] MEDS ORDERED: OLANZapine 10 MG/2.1 ML SDV IM STA (01:44)
[2022-12-24] MEDS: DICLOFENAC SOD 1% GEL 100 GM TUBE EXT SCH ×3 (06:39→17:48)
[2022-12-24] MEDS: INSULIN ASPART PER UNIT SC SCH ×5 (08:21→20:14)
--- NOTE | 2022-12-24 08:32 | Hospitalist Progress Note ---
Date of Service December 24, 2022 Assessment & Plan (1) Ketoacidosis: Plan 87 yo male with PMH of HLD, allergic rhinitis, gout, HTN, near syncope, bradycardia, RBBB, first-degree AV block, diverticulum of bladder, BPH, degenerative disc disease, bilateral SNHL, balance problems who was started on metformin/was diagnosed with diabetes a couple of months ago/did not tolerate/stopped taking and presented to PCP office 12/09 with increased thirst/urination/fogginess [OP chart reviewed on 12/16] and was prescribed jardiance on 12/09 (I called pharmacy 12/16-he filled it on 12/10). 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 Upon asking pt reports taking it for 2 weeks, which won't be possible as he filled it in 12/10. He presented to the ED 12/15 for feeling weak/tired/not being able to get up from the bed and walk because of weakness. He had an episode of nausea and vomiting the day of arrival to ED. He is being managed for the following: Weakness DKA Patient presents with nausea, vomiting x1, weakness in the setting of recent diagnosis of diabetes. Admitting glucose of 307 and anion gap of 20. Admitting COVID/flu/RSV negative. Admitting WBC at baseline. Admitting chest exam clear to auscultation. Admitting UA not suggestive of UTI. 12/16 Bl Cx - NG 48 Hrs. Possible euglycemic/mildly hyperglycemic DKA due to Jardiance, status post insulin drip and DKA resolved, patient eating breakfast, improving nausea and vomiting, sliding scale insulin currently. d/w endocrinology, plan to dc him on basal insulin only. A1c this admission 9.4%, special educator consulted. Glycemic pharmacy on board, appreciate recommendation.d/w pharmacy - will use 10 unit lantus in AM on DC. Continue telemetry. PT/OT, CM to assist with DC planning. Monitor and replete electrolytes. due to him being weak and needing ongoing pt/ot, he will need rehab. public health educator evaled, he will need following at DC: 1.) Glargine vial. 2.) Insulin syringe U-100 with needle 0.3 mL 31 gauge x 15-64" (6mm) 3.) FreeStyle Clementine 2 Cashiers - 1 each. 4.) FreeStyle Clementine 2 Sensor Kit - 2 per 28 days. Acute kidney injury over CKD stage III: Admitting creatinine of 1.49 likely secondary to dehydration secondary to DKA, baseline creatinine around 1.1-1.2. Status post IV fluids. Resolved. Hospital delirium: psychiatry consulted- pending sale to [facility] zyprexa, c/ w melatonin. QTc 462, has not needed prn zyprexa since 12/19 however last eveing and overnight (12/23- 12/24) pt again agitated and zyprexa prn given Urinary retention/ concern for UTI: found to be retaining urine on bladder scan, no urgency to void; straight cathed 700cc on 12/17 and next time 500 cc after vazquez. Uro evaled, f/u uro as OP. c/w 12/18 cipro. 12/18 urine culture - e coli Osteoarthritic pain: c/w tylenol or voltaren gel, will try to avoid NSAIDs or opiates as much as possible. Reviewed 12/21 Left ankle XR w/ no acute findings. Other chronic medical conditions: Paroxysmal A-fib single event in 2015 when he was on a steroid for polymyalgia rheumatica. Continue to monitor. 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 Continue home atenolol/losartan/terazosin as appropriate. 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 Continue to monitor. DVT prophylaxis: Heparin subcu Full code Disposition: PT/OT, CM to assist with DC planning. will need placement. pt stable for dc to rehab. Admission and Anticipated Discharge Date Admission Date: December 15, 2022 Subjective Patient seen and examined at bedside as a follow-up of weakness, mild DKA. Yesterday evening unfortunately patient became more confused, agitated, was trying to pull on Vazquez catheter and therefore IM Zyprexa as needed was given by nursing staff. Again overnight patient became more agitated and IM Zyprexa was given. This morning, patient is sleeping soundly in bed. Per Sitter now present at the bedside, patient was up in chair eating breakfast earlier, and had a conversation with her. Called peer to peer today, however given patient's episode of agitation, patient not able to be discharged yet. Review of Systems Review of Systems: All systems reviewed & are unremarkable except as noted in Subjective Physical Exam Physical Exam: GENERAL: The patient is sleeping soundly (received zyprexa earlier) HEENT: NC/AT. EOMI. Pupils equal, round and reactive to light. NECK: No JVD, no neck masses. CARDIOVASCULAR: S1 and S2 heard. Regular rate and rhythm. No murmur, no gallop. RESPIRATORY: Normal AP diameter. No accessory muscle use. No wheezing, no crackles. ABDOMEN: Soft, bowel sounds present, nontender, no distention. : Vazquez cath placed - clear yellow urine draining NEURO: drowsy/ sleeping - received zyprexa earlier. EXTREMITIES: No edema, no erythema. Results & Data Results & Data ([facility]) Vital Signs (Past 12 Hours) Vital Signs Temp Pulse Pulse Resp BP Pulse Ox O2 Del Method 12/24/22 02:14 36.5 C 86 18 104/60 97 Room Air 12/23/22 23:42 91 H 12/23/22 23:02 36.7 C 85 16 113/53 L 98 Room Air Laboratory Results 12/24/22 12/23/22 12/23/22 Range/Units 08:00 Unknown 21:16 POC Glucose 179 H 114 H (70-99) mg/dl Urine Color Yellow Urine Appearance Clear (Clear) Urine pH 5.5 (4.5-7.5) Ur Specific Mason 1.014 (1.000-1.030) Urine Protein Trace H (Negative) Urine Glucose (UA) Trace H (Negative) Urine Ketones Negative (Negative) Urine Blood 2+ H (Negative) Urine Nitrite Negative (Negative) Urine Bilirubin Negative (Negative) Urine Urobilinogen Negative (Negative) Ur Leukocyte Esterase Trace H (Negative) Urine WBC (Auto) 1-5 (0-5) /hpf Urine RBC (Auto) 5-10 H (0-4) /hpf U Hyaline Cast (Auto) 1-5 (0-5) /lpf U Epithel Cells (Auto) 10-20 H (0-5) /lpf Urine Bacteria (Auto) Negative (Negative) 12/23/22 12/23/22 Range/Units 15:57 11:23 POC Glucose 157 H 188 H (70-99) mg/dl Urine Color Urine Appearance (Clear) Urine pH (4.5-7.5) Ur Specific Mason (1.000-1.030) Urine Protein (Negative) Urine Glucose (UA) (Negative) Urine Ketones (Negative) Urine Blood (Negative) Urine Nitrite (Negative) Urine Bilirubin (Negative) Urine Urobilinogen (Negative) Ur Leukocyte Esterase (Negative) Urine WBC (Auto) (0-5) /hpf Urine RBC (Auto) (0-4) /hpf U Hyaline Cast (Auto) (0-5) /lpf U Epithel Cells (Auto) (0-5) /lpf Urine Bacteria (Auto) (Negative) Medications Administered Current Inpatient Medications Acetaminophen (Acetaminophen 325 Mg Tab) 650 mg PO Q4H PRN PRN Reason: Pain or Fever Stop: 01/15/23 00:02 Last Admin: 12/19/22 11:26 Dose: 650 mg Atenolol (Atenolol 25 Mg Tablet) 25 mg PO QAM VINOD Stop: 01/15/23 08:59 Last Admin: 12/23/22 09:28 Dose: 25 mg Azelastine HCl (Azelastine Hcl 0.1% Nasal 200 Sprays/27,400 Mcg Btl) 2 sprays NA BID PRN PRN Reason: Congestion Stop: 01/15/23 00:02 Calcium Carbonate (Calcium Carbonate 500 Mg Chewable Tab) 1,000 mg PO BID PRN PRN Reason: Indigestion Stop: 01/15/23 08:00 Last Admin: 12/19/22 21:40 Dose: 1,000 mg Cetirizine HCl (Cetirizine Hcl 10 Mg Tablet) 10 mg PO DAILY PRN PRN Reason: Allergy Symptoms Stop: 01/15/23 00:02 Last Admin: 12/20/22 07:54 Dose: 10 mg Ciprofloxacin (Ciprofloxacin 500 Mg Tab) 500 mg PO BID VINOD Stop: 12/28/22 20:59 Last Admin: 12/23/22 20:48 Dose: 500 mg Dextrose (Dextrose 50% 50 Ml Syringe) 25 - 50 ml IV UD PRN; Protocol PRN Reason: Hypoglycemia Protocol Stop: 01/15/23 00:44 Last Admin: 12/16/22 03:06 Dose: 25 ml Diclofenac Sodium (Diclofenac Sod 1% Gel 100 Gm Tube) 4 gm EXT Q6 VINOD; Protocol Stop: 01/20/23 09:59 Last Admin: 12/24/22 06:39 Dose: 4 gm Famotidine (Famotidine 20 Mg Tab) 20 mg PO QAM [facility] Stop: 01/15/23 11:14 Last Admin: 12/23/22 09:28 Dose: 20 mg Glucagon (Glucagon For Inj 1 Mg Vial) 1 mg IM UD PRN; Protocol PRN Reason: Hypoglycemia Protocol Stop: 01/15/23 00:44 Glucose (Glucose 40% Gel 15 Gm Tube) 15 - 30 gm PO UD PRN; Protocol PRN Reason: Hypoglycemia Protocol Stop: 01/15/23 00:44 Glucose (Glucose 10 Tab/Tube) 4 - 8 tab PO UD PRN; Protocol PRN Reason: Hypoglycemia Protocol Stop: 01/15/23 00:44 Heparin Sodium (Porcine) (Heparin Sod 5,000 Unit/0.5 Ml Vial) 5,000 units SQ Q12 [facility] Stop: 01/15/23 08:59 Last Admin: 12/23/22 20:48 Dose: 5,000 units Hydroxyzine HCl (Hydroxyzine Hcl 25 Mg Tab) 25 mg PO TID PRN PRN Reason: Itching Stop: 01/15/23 00:02 Last Admin: 12/21/22 20:08 Dose: 25 mg Insulin Aspart (Insulin Aspart Per Unit) 0 units SC ACHS [facility] Stop: 01/15/23 08:14 Last Admin: 12/23/22 21:20 Dose: Not Given Insulin Glargine (Lantus Per Unit Charge) 27 units SQ QAM [facility] Stop: 01/21/23 08:59 Losartan Potassium (Losartan Potassium 25 Mg Tab) 25 mg PO QAM [facility] Stop: 01/15/23 08:59 Last Admin: 12/23/22 09:26 Dose: 25 mg Magnesium Oxide (Magnesium Oxide 400 Mg Tab) 400 mg PO QAM [facility] Stop: 01/22/23 10:29 Last Admin: 12/23/22 12:59 Dose: 400 mg Melatonin (Melatonin 3 Mg Tab) 3 mg PO HS [facility] Stop: 01/17/23 20:59 Last Admin: 12/23/22 20:48 Dose: 3 mg Miscellaneous (Carbohydrates For Hypoglycemia ) 15 - 30 gm PO UD PRN PRN Reason: Hypoglycemia Treatment Stop: 01/15/23 00:44 Miscellaneous Information (Pharmacy Glycemic Mgmt Consult) 1 each N/A UD PRN PRN Reason: Consult Stop: 01/15/23 00:02 Nitroglycerin (Nitroglycerin Sl 0.4 Mg/Tab Tab) 0.4 mg SL Q5M PRN PRN Reason: Chest Pain Stop: 01/15/23 00:02 Olanzapine (Olanzapine 10 Mg/2.1 Ml Sdv) 2.5 mg IM Q4H PRN PRN Reason: Anxiety/Agitation Stop: 01/15/23 19:24 Last Admin: 12/23/22 17:25 Dose: 2.5 mg Olanzapine (Olanzapine 2.5 Mg Tab) 2.5 mg PO HS VINOD Stop: 01/17/23 20:59 Last Admin: 12/23/22 20:49 Dose: 2.5 mg Ondansetron HCl (Ondansetron Inj 2 Mg/Ml 2 Ml Vial) 4 mg IV Q6H PRN PRN Reason: Nausea Stop: 01/15/23 00:02 Polyethylene Glycol (Polyethylene (Miralax) 17 Gm Pack) 17 gm PO DAILY PRN PRN Reason: Constipation Stop: 01/15/23 00:02 Last Admin: 12/16/22 09:49 Dose: 17 gm Senna/Docusate Sodium (Docusate Sodium/Senna 50/8.6mg Tab) 1 tab PO QAM VINOD Stop: 01/19/23 19:44 Last Admin: 12/23/22 09:27 Dose: 1 tab Terazosin HCl (Terazosin Hcl 1 Mg Cap) 4 mg PO HS VINOD Stop: 01/15/23 20:59 Last Admin: 12/23/22 20:49 Dose: 4 mg Valacyclovir HCl (Valacyclovir Hcl 500 Mg Tablet) 1,000 mg PO BID VINOD Stop: 01/15/23 08:59 Last Admin: 12/23/22 20:45 Dose: 1,000 mg
[2022-12-24] MEDS ORDERED: LANTUS PER UNIT CHARGE SQ SCH (09:00)
[2022-12-24 09:15] LABS: Hematocrit (blood only) 35.7 % (42.0-52.0); Mean Corpuscular Hemoglobin 34.2 pg (25.0-34.0); Mean Corpuscular Hgb Conc 36.4 g/dL (32.0-36.0); Mean Corpuscular Volume 93.9 fL (80.0-100.0); Mean Platelet Volume 8.5 fL (9.4-12.4); Platelet Count 287 K/uL (130-400); RDW Coefficient of Variation 13.8 % (11.5-14.5); RDW Standard Deviation 47.7 fL (36.4-46.3); White Blood Count 1.92 K/ul (4.8-10.8)
[2022-12-24] MEDS: LOSARTAN POTASSIUM 25 MG TAB PO SCH (09:36)
[2022-12-24] MEDS: ATENOLOL 25 MG TABLET PO SCH (09:36)
[2022-12-24] MEDS: DOCUSATE SODIUM/SENNA 50/8.6MG TAB PO SCH (09:37)
[2022-12-24] MEDS: FAMOTIDINE 20 MG TAB PO SCH (09:37)
[2022-12-24] MEDS: MAGNESIUM OXIDE 400 MG TAB PO SCH (09:37)
[2022-12-24 09:38] LABS: Calcium 8.9 mg/dl (8.5-10.1); Est GFR (Non-African American) 62.1 ml/min; Magnesium 1.9 mg/dl (1.7-2.4); Phosphorus 3.7 mg/dl (2.5-4.9); Potassium 4.1 mmol/L (3.5-5.1)
[2022-12-24] MEDS: valACYclovir HCL 500 MG TABLET PO SCH ×2 (09:38→21:10)
[2022-12-24] MEDS: CIPROFLOXACIN 500 MG TAB PO SCH (09:38)
[2022-12-24] MEDS: HEPARIN SOD 5,000 UNIT/0.5 ML VIAL SQ SCH ×2 (09:39→21:09)
--- NOTE | 2022-12-24 13:29 | Pharmacy Report ---
Pharmacy Glycemic Short Note 2 - Date of Service December 24, 2022 - Glycemic Short BSG Results (Last 24 hours): 12/23/22 12/23/22 12/24/22 15:57 21:16 08:00 Glucose POC Glucose 157 H 114 H 179 H 12/24/22 12/24/22 08:42 11:29 Glucose 188 H POC Glucose 208 H OUTPATIENT ANTIDIABETIC REGIMEN: * Metformin 1gm PO daily * empagliflozin 10mg PO daily HbA1C: 9.4% (12/15/22) ASSESSMENT: 12/24: * Fasting improved from yesterday, still slightly above goal. Basal increased 2 units this AM. * Lunch BSG elevated, however, patient had late carbs that were covered @1029 and BSG @1129 * Will continue same novolog parameters as patient with good control over past 24 hours with current dosing 12/23: * BSGs [phone]/dL. Patient received 25 units of basal and 10 units of bolus insulin yesterday. * Tolerating diet, continues PO abx. * Will titrate Lantus to 27 units starting tomorrow d/t elevated fasting this AM. No change to Novolog. 12/22: * BSGs [phone]/dL the last 24h. Patient received 25 units of basal and 24 units of bolus insulin yesterday. * Tolerating a diet, continues on PO antibiotics. * Given fasting BSG within acceptable range, will continue with 25 units of basal daily. No change to Novolog parameters. 12/21: * BSGs [phone]/dL the last 24h. Patient received 20 units of basal and 26 units of bolus insulin yesterday. * On PO antibiotics and tolerating diet. * Given elevated fasting BSG of 228mg/dL, will increase basal today to 25 units. No change to Novolog parameters - tightened to 30/9 on 12/20. Will reassess basal tomorrow AM. 12/18 * Stressors stable. * Post-prandial BSG's all >180 mg/dL yesterday. Will tighten CHO ratio. * AM fasting BSG within goal range - no change to Lantus 12/17 * BSG's in or only slightly above goal range since transitioning off insulin drip yesterday * Looser than weight-based moderate stress CHO ratio effectively managing BSG's - continue same * AM fasting with notable trend down since yesterday AM and basal insulin not yet at steady state. Lower prandial doses required noted. Will therefore decrease basal insulin 12/16 * Patient is an 87 year old male who presented to the ED with weakness and an episode of N/V. History of recent type 2 DM diagnosis on metformin, which he was reportedly not tolerating and was switched to empagliflozin. Initial labs consistent with mild DKA - pH-7.28, AG-20, bicarb-17, glucose-307. Patient started on an insulin drip per DKA protocol around midnight. * Insulin drip running consistently at 4 unit/hr this AM. D51/2 NS w/ 20mEq KCl running @ 200ml/hr. Labs this AM - pH-7.39, AG-7, bicarb-25 and BSGs within goal range. Will begin to transition to SQ. * Lantus 20 units SQ X 1 (~0.3unit/kg, ~wt/stress 3 with BID dosing). Novolog ACHS with carb ratio to cover breakfast. Diet ordered. IVF to d/c once he eats. Overlap insulin drip with Lantus for at least 2 hours. Novolog overnight checks tonight and HS Lantus scale. PLAN FOR INPATIENT GLYCEMIC CONTROL: * Hold outpatient oral diabetes medications * Basal insulin * Lantus 27 units SQ qAM * Bolus insulin * NovoLog per scale ACHS or Q6hrs while NPO * Goal Range: Low 110 mg/dL - High 140 mg/dL * Correction Factor: 30 mg/dL/unit * Nutritional / Prandial insulin per carb ratio of 1 unit per 9 grams CHO consumed
[2022-12-24 19:36] LABS: BUN Creatinine Ratio 28.2 (10-20); Calcium 8.3 mg/dl (8.5-10.1); Creatinine Clr Calc Pharmacy 41.1 ml/min; Est GFR (African American) 64.6 ml/min; Est GFR (Non-African American) 55.7 ml/min; Magnesium 1.9 mg/dl (1.7-2.4); Potassium 4.3 mmol/L (3.5-5.1)
[2022-12-24] MEDS: MELATONIN 3 MG TAB PO SCH (20:21)
[2022-12-24] MEDS ORDERED: MAGNESIUM SULFATE / D5W 1 GM/100 ML BAG IV ONE (20:30)
[2022-12-24] MEDS: TERAZOSIN HCL 1 MG CAP PO SCH (21:09)
[2022-12-25] MEDS: DICLOFENAC SOD 1% GEL 100 GM TUBE EXT SCH ×4 (01:02→17:07)
[2022-12-25] MEDS: HEPARIN SOD 5,000 UNIT/0.5 ML VIAL SQ SCH ×2 (07:50→20:36)
[2022-12-25] MEDS: valACYclovir HCL 500 MG TABLET PO SCH ×2 (07:50→20:37)
[2022-12-25] MEDS: MAGNESIUM OXIDE 400 MG TAB PO SCH (07:51)
[2022-12-25] MEDS: DOCUSATE SODIUM/SENNA 50/8.6MG TAB PO SCH (07:51)
[2022-12-25] MEDS: LOSARTAN POTASSIUM 25 MG TAB PO SCH (07:52)
[2022-12-25] MEDS: ATENOLOL 25 MG TABLET PO SCH (07:52)
[2022-12-25] MEDS: FAMOTIDINE 20 MG TAB PO SCH (07:52)
[2022-12-25] MEDS: INSULIN ASPART PER UNIT SC SCH ×4 (08:02→19:57)
[2022-12-25] MEDS: LANTUS PER UNIT CHARGE SQ SCH (08:04)
[2022-12-25 08:27] LABS: Hematocrit (blood only) 36.7 % (42.0-52.0); Mean Corpuscular Hemoglobin 34.1 pg (25.0-34.0); Mean Corpuscular Hgb Conc 35.4 g/dL (32.0-36.0); Mean Corpuscular Volume 96.3 fL (80.0-100.0); Mean Platelet Volume 8.5 fL (9.4-12.4); Platelet Count 275 K/uL (130-400); RDW Standard Deviation 49.1 fL (36.4-46.3); Red Blood Count 3.81 M/uL (4.70-6.10); White Blood Count 2.28 K/ul (4.8-10.8)
[2022-12-25 08:49] LABS: BUN Creatinine Ratio 29.2 (10-20); Calcium 8.7 mg/dl (8.5-10.1); Creatinine Clr Calc Pharmacy 43.3 ml/min; Est GFR (African American) 67.4 ml/min; Est GFR (Non-African American) 58.1 ml/min; Phosphorus 3.3 mg/dl (2.5-4.9); Potassium 4.2 mmol/L (3.5-5.1)
--- NOTE | 2022-12-25 09:05 | Cardiology Consultation ---
Date of Consultation December 25, 2022 Assessment & Plan (1) Ketoacidosis: (2) Acute hyperglycemia: (3) Acute dehydration: (4) Delirium: (5) Abnormal ECG: Plan I reviewed the patient's EKGs. He has generalized low voltage and although the computer reads out that he is in a junctional rhythm he actually has P waves with first-degree AV block and a right sided conduction delay. These EKGs are similar to the patient's outpatient EKGs through our clinic. Previously he has had a first-degree AV block and right bundle branch block. I reviewed the telemetry during his hospital admission and he has had no episodes of high-grade heart block during this admission. He is on atenolol 25 mg daily for PAF. His heart rate seem to be appropriate for him but if there is some concern regarding bradycardia. Decrease the atenolol to 12.5 mg daily or even stop this medication. No additional cardiac testing is indicated. History of Present Illness Attending Physician: Jamie Lazaro MD History of Present Illness This is an 87-year-old male patient who usually follows with Dr. Alejo with a history as outlined below. Recently the patient decided to stop his metformin. He was seen by his PCP and started on Jardiance. There was some confusion on the part of the patient and he may not have been taking his medications. He presented with hyperosmolar DKA with increased confusion and delirium. We have been asked to see the patient due to an abnormal EKG. The EKG is low voltage. The computer is reading out that he has a junctional rhythm but if you look closely there are P waves present with a first-degree AV block. He also has a right-sided conduction delay or right bundle branch block which is not new. Heart rates and blood pressure is appropriate on 25 of atenolol daily. Past medical history: 1.Paroxysmal atrial fibrillation single event controlled in sinus on combination of atenolol and flecainidei 2.History of past polymyalgia rheumatica. 3. Mild to Moderate aortic insufficiency. 4.Labile hypertension. 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 Allergies Allergy/AdvReac Type Severity Reaction Status Date / Time Penicillins Allergy Severe HIVES Verified 12/15/22 19:42 Sulfa (Sulfonamide Allergy Severe RASH Verified 12/15/22 19:42 Antibiotics) tree and shrub pollen Allergy Unknown Verified 12/15/22 19:42 Home Medications Medication Instructions Recorded Confirmed Type azelastine 137 mcg (0.1 %) nasal 2 spray intranasal BID PRN 07/10/19 12/15/22 History spray aerosol Congestion cetirizine 10 mg tablet 10 mg PO DAILY PRN Allergy Symptoms 07/10/19 12/15/22 History flecainide 100 mg tablet 100 mg PO Q2D PRN Cardiac 07/10/19 12/15/22 History Arrhythmia losartan 25 mg tablet 25 mg PO QAM 07/10/19 12/15/22 History atenolol 25 mg tablet 25 mg PO QAM 11/20/21 12/15/22 History valacyclovir 1 gram tablet 1,000 mg PO BID 11/20/21 12/15/22 History metformin 500 mg tablet,extended 1,000 tab PO QAM 09/10/22 12/15/22 History release 24 hr empagliflozin 10 mg tablet 10 mg PO DAILY 12/15/22 12/15/22 History (Jardiance) hydroxyzine HCl 25 mg tablet 25 mg PO TID PRN Itching 12/15/22 12/15/22 History ketoconazole 2 % shampoo 1 applic topical .Q3DAYS 12/15/22 12/15/22 History naproxen sodium 220 mg tablet 220 mg PO Q12H PRN Pain 12/15/22 12/15/22 History (Aleve) terazosin 2 mg capsule 4 mg PO HS 12/15/22 12/15/22 History Patient History Medical History Actinic keratosis 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) Diverticulitis (07/23/14) Diverticulitis DM (diabetes mellitus) DVT (deep venous thrombosis) H/O prostatitis HTN (hypertension) Incomplete emptying of bladder (11/03/14) Left leg DVT Postoperative urethral stricture Sensorineural hearing loss of both ears Urinary retention UTI (lower urinary tract infection) UTI (lower urinary tract infection) Surgical History History of back surgery History of knee surgery History of surgery Stomach, skin S/P TURP Family History Other Family history non-contributory Heart disease No family history of adverse response to anesthesia No family history of bleeding disorder Denies family history of Ovarian cancer Prostate cancer Myocardial infarction Breast cancer Colorectal cancer Social History Smoking Status: Unknown if ever smoked Second Hand Exposure: No; Hx Alcohol Use: No Hx Substance Use: No Preferred Language: Macedonian Communication Ability: Effective Visual Impairment: No Limitations Hearing Ability: Hard of Hearing 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 Required: No Beliefs That Will Affect Care: None marital status: Current Living Situation: Spouse current occupational status: retired How many Children do You have: 3 Other Information That Helps Us Care for You: No Feels Safe at Home: Yes Safety Concerns: Feels Safe At This Time Childhood Exposure to Second-Hand Smoke: No Dental Care, Regularly: Yes Physical Activity Frequency: 3-4 Times per Week Seatbelt Use: always Sunscreen Use: No Assistive Devices: Cane Review of Systems Review of Systems: Not obtainable Physical Exam Physical Exam: General: Confused resting Head: normocephalic, no masses, lesions, tenderness or abnormalities Eyes: conjunctiva are pink and non-injected, sclera clear Neck: supple, no adenopathy, no bruits, normal jugular venous pulse, no hepatojugular reflux Chest: normal shape and normal respiratory effort Lungs: clear to auscultation and percussion Cardiac Exam: - regular rate & rhythm, no murmurs gallops or rubs - normal S1, normal S2 Pulses: 2(+) throughout Abdomen: abdomen soft, non-tender, no abnormal masses and no hepatosplenomegaly Musculoskeletal: no gait disturbance, no joint inflammation, no deforming arthritis Extremities: no edema and no cyanosis Neuro: grossly normal exam Results & Data ([facility]) Vital Signs (Past 12 Hours) Vital Signs Temp Pulse Pulse Resp BP Pulse Ox O2 Del Method 12/25/22 07:46 36.9 C 95 H 16 139/66 96 Room Air 12/25/22 02:52 36.9 C 83 16 122/70 95 Room Air 12/24/22 23:20 81 12/24/22 22:56 36.8 C 83 18 117/55 L 98 Room Air Laboratory Results Laboratory Results - last 24 hr 12/24/22 12/24/22 12/24/22 11:29 16:05 18:41 WBC RBC Hgb Hct MCV MCH MCHC RDW Std Deviation RDW Coeff of Nam Plt Count MPV Sodium 137 Potassium 4.3 Chloride 107 Carbon Dioxide 23 Anion Gap 7 BUN 33 H Creatinine 1.17 Est Cr Clr Drug Dosing 41.1 Est GFR ( Amer) 64.6 Est GFR (Non-Af Amer) 55.7 BUN/Creatinine Ratio 28.2 H Glucose 305 H* POC Glucose 208 H 196 H Calcium 8.3 L Phosphorus Magnesium 1.9 12/24/22 12/24/22 12/25/22 19:40 23:14 07:21 WBC RBC Hgb Hct MCV MCH MCHC RDW Std Deviation RDW Coeff of Nam Plt Count MPV Sodium Potassium Chloride Carbon Dioxide Anion Gap BUN Creatinine Est Cr Clr Drug Dosing Est GFR ( Amer) Est GFR (Non-Af Amer) BUN/Creatinine Ratio Glucose POC Glucose 255 H 203 H 242 H Calcium Phosphorus Magnesium 12/25/22 12/25/22 07:34 07:34 WBC 2.28 L RBC 3.81 L Hgb 13.0 L Hct 36.7 L MCV 96.3 MCH 34.1 H MCHC 35.4 RDW Std Deviation 49.1 H RDW Coeff of Nam 14.0 Plt Count 275 MPV 8.5 L Sodium 137 Potassium 4.2 Chloride 106 Carbon Dioxide 26 Anion Gap 5 BUN 33 H Creatinine 1.13 Est Cr Clr Drug Dosing 43.3 Est GFR ( Amer) 67.4 Est GFR (Non-Af Amer) 58.1 BUN/Creatinine Ratio 29.2 H Glucose 259 H POC Glucose Calcium 8.7 Phosphorus 3.3 Magnesium 2.0 Diagnostic Findings Echocardiogram December 19, 2020 The left ventricular cavity size is normal. The LV wall thickness is mildly increased (concentric). The left ventricular wall motion is normal. The qualitative LV ejection fraction is 60-64% (normal). The left ventricular diastolic function is mildly abnormal (grade I). Moderate aortic valve sclerosis is present. Moderate aortic valve regurgitation is present. The aortic root is mildly enlarged. Compared to prior study of August 09, 2019, there is no significant change.
--- NOTE | 2022-12-25 10:50 | Hospitalist Progress Note ---
Date of Service December 25, 2022 Assessment & Plan (1) Ketoacidosis: Plan 87 yo male with PMH of HLD, allergic rhinitis, gout, HTN, near syncope, bradycardia, RBBB, first-degree AV block, diverticulum of bladder, BPH, degenerative disc disease, bilateral SNHL, balance problems who was started on metformin/was diagnosed with diabetes a couple of months ago/did not tolerate/stopped taking and presented to PCP office 12/09 with increased thirst/urination/fogginess [OP chart reviewed on 12/16] and was prescribed jardiance on 12/09 (I called pharmacy 12/16-he filled it on 12/10). 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 Upon asking pt reports taking it for 2 weeks, which won't be possible as he filled it in 12/10. He presented to the ED 12/15 for feeling weak/tired/not being able to get up from the bed and walk because of weakness. He had an episode of nausea and vomiting the day of arrival to ED. He is being managed for the following: Weakness DKA Patient presents with nausea, vomiting x1, weakness in the setting of recent diagnosis of diabetes. Admitting glucose of 307 and anion gap of 20. Admitting COVID/flu/RSV negative. Admitting WBC at baseline. Admitting chest exam clear to auscultation. Admitting UA not suggestive of UTI. 12/16 Bl Cx - NG 48 Hrs. Possible euglycemic/mildly hyperglycemic DKA due to Jardiance, status post insulin drip and DKA resolved, patient eating breakfast, improving nausea and vomiting, sliding scale insulin currently. d/w endocrinology, plan to dc him on basal insulin only. A1c this admission 9.4%, school vocational educator consulted. Glycemic pharmacy on board, appreciate recommendation.d/w pharmacy - will use 10 unit lantus in AM on DC. Continue telemetry. PT/OT, CM to assist with DC planning. Monitor and replete electrolytes. due to him being weak and needing ongoing pt/ot, he will need rehab. informatics educator evaled, he will need following at DC: 1.) Glargine vial. 2.) Insulin syringe U-100 with needle 0.3 mL 31 gauge x 15-64" (6mm) 3.) FreeStyle Clementine 2 [place] - 1 each. 4.) FreeStyle Clementine 2 Sensor Kit - 2 per 28 days. Acute kidney injury over CKD stage III: Admitting creatinine of 1.49 likely secondary to dehydration secondary to DKA, baseline creatinine around 1.1-1.2. Status post IV fluids. Resolved. Hospital delirium: psychiatry consulted- [facility] zyprexa, c/ w melatonin. QTc 462, has not needed prn zyprexa since 12/19 however last eveing and overnight (12/23- 12/24) pt again agitated and zyprexa prn given Urinary retention/ concern for UTI: found to be retaining urine on bladder scan, no urgency to void; straight cathed 700cc on 12/17 and next time 500 cc after vazquez. Uro evaled, f/u uro as OP. c/w 12/18 cipro. 12/18 urine culture - e coli - finished Abx course w/ cipro Osteoarthritic pain: c/w tylenol or voltaren gel, will try to avoid NSAIDs or opiates as much as possible. Reviewed 12/21 Left ankle XR w/ no acute findings. Other chronic medical conditions: Paroxysmal A-fib single event in 2015 when he was on a steroid for polymyalgia rheumatica. Continue to monitor. 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 Continue home atenolol/losartan/terazosin as appropriate. 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 Continue to monitor. DVT prophylaxis: Heparin subcu Full code Disposition: PT/OT, CM to assist with DC planning. will need placement. pt stable for dc to rehab/snf. Admission and Anticipated Discharge Date Admission Date: December 15, 2022 Subjective Patient seen and examined at bedside as a follow-up of weakness, mild DKA. This morning sitting up in chair, in no acute distress. He is awake alert, answering simple questions appropriately. Cooperative with nursing staff. Denies fevers chills chest pain shortness of breath. Denies abdominal pain Yesterday Per telemetry, notified that patient went into second-degree AV block for very short amount of time, ECG obtained. Will discuss further with cardiology. Review of Systems Review of Systems: All systems reviewed & are unremarkable except as noted in Subjective Physical Exam Physical Exam: GENERAL: The patient is alert and oriented, not in acute distress. HEENT: NC/AT. EOMI. Pupils equal, round and reactive to light. Oral mucosa dry. NECK: No JVD, no neck masses. CARDIOVASCULAR: S1 and S2 heard. Regular rate and rhythm. No murmur, no gallop. RESPIRATORY: Normal AP diameter. No accessory muscle use. No wheezing, no crackles. ABDOMEN: Soft, bowel sounds present, nontender, no distention. : Vazquez cath placed - clear yellow urine draining NEURO: Alert and oriented, somewhat hard of hearing. Speech is clear. No facial droop. Obeys simple commands. Insight is okay. Moves extremities. EXTREMITIES: No edema, no erythema. Results & Data Results & Data ([facility]) Vital Signs (Past 12 Hours) Vital Signs Temp Pulse Pulse Resp BP Pulse Ox O2 Del Method 12/25/22 07:46 36.9 C 95 H 16 139/66 96 Room Air 12/25/22 02:52 36.9 C 83 16 122/70 95 Room Air 12/24/22 23:20 81 12/24/22 22:56 36.8 C 83 18 117/55 L 98 Room Air Laboratory Results 12/25/22 12/25/22 12/25/22 Range/Units 07:34 07:34 07:21 WBC 2.28 L (4.8-10.8) K/ul RBC 3.81 L (4.70-6.10) M/uL Hgb 13.0 L (14.0-18.0) g/dl Hct 36.7 L (42.0-52.0) % MCV 96.3 (80.0-100.0) fL MCH 34.1 H (25.0-34.0) pg MCHC 35.4 (32.0-36.0) g/dL RDW Std Deviation 49.1 H (36.4-46.3) fL RDW Coeff of Nam 14.0 (11.5-14.5) % Plt Count 275 (130-400) K/uL MPV 8.5 L (9.4-12.4) fL Sodium 137 (136-145) mmol/L Potassium 4.2 (3.5-5.1) mmol/L Chloride 106 (98-107) mmol/L Carbon Dioxide 26 (21-32) mmol/L Anion Gap 5 (3-11) BUN 33 H (6-23) mg/dl Creatinine 1.13 (0.6-1.4) mg/dl Est Cr Clr Drug Dosing 43.3 ml/min Est GFR ( Amer) 67.4 ml/min Est GFR (Non-Af Amer) 58.1 ml/min BUN/Creatinine Ratio 29.2 H (10-20) Glucose 259 H (70-99(Fasting)) mg/dl POC Glucose 242 H (70-99) mg/dl Calcium 8.7 (8.5-10.1) mg/dl Phosphorus 3.3 (2.5-4.9) mg/dl Magnesium 2.0 (1.7-2.4) mg/dl 12/24/22 12/24/22 12/24/22 Range/Units 23:14 19:40 18:41 WBC (4.8-10.8) K/ul RBC (4.70-6.10) M/uL Hgb (14.0-18.0) g/dl Hct (42.0-52.0) % MCV (80.0-100.0) fL MCH (25.0-34.0) pg MCHC (32.0-36.0) g/dL RDW Std Deviation (36.4-46.3) fL RDW Coeff of Nam (11.5-14.5) % Plt Count (130-400) K/uL MPV (9.4-12.4) fL Sodium 137 (136-145) mmol/L Potassium 4.3 (3.5-5.1) mmol/L Chloride 107 (98-107) mmol/L Carbon Dioxide 23 (21-32) mmol/L Anion Gap 7 (3-11) BUN 33 H (6-23) mg/dl Creatinine 1.17 (0.6-1.4) mg/dl Est Cr Clr Drug Dosing 41.1 ml/min Est GFR ( Amer) 64.6 ml/min Est GFR (Non-Af Amer) 55.7 ml/min BUN/Creatinine Ratio 28.2 H (10-20) Glucose 305 H* (70-99(Fasting)) mg/dl POC Glucose 203 H 255 H (70-99) mg/dl Calcium 8.3 L (8.5-10.1) mg/dl Phosphorus (2.5-4.9) mg/dl Magnesium 1.9 (1.7-2.4) mg/dl 12/24/22 12/24/22 Range/Units 16:05 11:29 WBC (4.8-10.8) K/ul RBC (4.70-6.10) M/uL Hgb (14.0-18.0) g/dl Hct (42.0-52.0) % MCV (80.0-100.0) fL MCH (25.0-34.0) pg MCHC (32.0-36.0) g/dL RDW Std Deviation (36.4-46.3) fL RDW Coeff of Nam (11.5-14.5) % Plt Count (130-400) K/uL MPV (9.4-12.4) fL Sodium (136-145) mmol/L Potassium (3.5-5.1) mmol/L Chloride (98-107) mmol/L Carbon Dioxide (21-32) mmol/L Anion Gap (3-11) BUN (6-23) mg/dl Creatinine (0.6-1.4) mg/dl Est Cr Clr Drug Dosing ml/min Est GFR ( Amer) ml/min Est GFR (Non-Af Amer) ml/min BUN/Creatinine Ratio (10-20) Glucose (70-99(Fasting)) mg/dl POC Glucose 196 H 208 H (70-99) mg/dl Calcium (8.5-10.1) mg/dl Phosphorus (2.5-4.9) mg/dl Magnesium (1.7-2.4) mg/dl Medications Administered Current Inpatient Medications Acetaminophen (Acetaminophen 325 Mg Tab) 650 mg PO Q4H PRN PRN Reason: Pain or Fever Stop: 01/15/23 00:02 Last Admin: 12/19/22 11:26 Dose: 650 mg Atenolol (Atenolol 25 Mg Tablet) 25 mg PO QAM [facility] Stop: 01/15/23 08:59 Last Admin: 12/25/22 07:52 Dose: 25 mg Azelastine HCl (Azelastine Hcl 0.1% Nasal 200 Sprays/27,400 Mcg Btl) 2 sprays NA BID PRN PRN Reason: Congestion Stop: 01/15/23 00:02 Calcium Carbonate (Calcium Carbonate 500 Mg Chewable Tab) 1,000 mg PO BID PRN PRN Reason: Indigestion Stop: 01/15/23 08:00 Last Admin: 12/19/22 21:40 Dose: 1,000 mg Cetirizine HCl (Cetirizine Hcl 10 Mg Tablet) 10 mg PO DAILY PRN PRN Reason: Allergy Symptoms Stop: 01/15/23 00:02 Last Admin: 12/20/22 07:54 Dose: 10 mg Dextrose (Dextrose 50% 50 Ml Syringe) 25 - 50 ml IV UD PRN; Protocol PRN Reason: Hypoglycemia Protocol Stop: 01/15/23 00:44 Last Admin: 12/16/22 03:06 Dose: 25 ml Diclofenac Sodium (Diclofenac Sod 1% Gel 100 Gm Tube) 4 gm EXT Q6 VINOD; Protocol Stop: 01/20/23 09:59 Last Admin: 12/25/22 05:07 Dose: 4 gm Famotidine (Famotidine 20 Mg Tab) 20 mg PO QAM VINOD Stop: 01/15/23 11:14 Last Admin: 12/25/22 07:52 Dose: 20 mg Glucagon (Glucagon For Inj 1 Mg Vial) 1 mg IM UD PRN; Protocol PRN Reason: Hypoglycemia Protocol Stop: 01/15/23 00:44 Glucose (Glucose 40% Gel 15 Gm Tube) 15 - 30 gm PO UD PRN; Protocol PRN Reason: Hypoglycemia Protocol Stop: 01/15/23 00:44 Glucose (Glucose 10 Tab/Tube) 4 - 8 tab PO UD PRN; Protocol PRN Reason: Hypoglycemia Protocol Stop: 01/15/23 00:44 Heparin Sodium (Porcine) (Heparin Sod 5,000 Unit/0.5 Ml Vial) 5,000 units SQ Q12 VINOD Stop: 01/15/23 08:59 Last Admin: 12/25/22 07:50 Dose: 5,000 units Hydroxyzine HCl (Hydroxyzine Hcl 25 Mg Tab) 25 mg PO TID PRN PRN Reason: Itching Stop: 01/15/23 00:02 Last Admin: 12/21/22 20:08 Dose: 25 mg Insulin Aspart (Insulin Aspart Per Unit) 0 units SC ACHS [facility] Stop: 01/15/23 08:14 Last Admin: 12/25/22 08:02 Dose: 11 units Insulin Glargine (Lantus Per Unit Charge) [address] [facility] Stop: 01/21/23 08:59 Last Admin: 12/25/22 08:04 Dose: 30 units Losartan Potassium (Losartan Potassium 25 Mg Tab) [address] [facility] Stop: 01/15/23 08:59 Last Admin: 12/25/22 07:52 Dose: 25 mg Magnesium Oxide (Magnesium Oxide 400 Mg Tab) [address] [facility] Stop: 01/22/23 10:29 Last Admin: 12/25/22 07:51 Dose: 400 mg Melatonin (Melatonin 3 Mg Tab) 3 mg PO [facility] Stop: 01/17/23 20:59 Last Admin: 12/24/22 20:21 Dose: Not Given Miscellaneous (Carbohydrates For Hypoglycemia ) 15 - 30 gm PO UD PRN PRN Reason: Hypoglycemia Treatment Stop: 01/15/23 00:44 Miscellaneous Information (Pharmacy Glycemic Mgmt Consult) 1 each N/A UD PRN PRN Reason: Consult Stop: 01/15/23 00:02 Nitroglycerin (Nitroglycerin Sl 0.4 Mg/Tab Tab) 0.4 mg SL Q5M PRN PRN Reason: Chest Pain Stop: 01/15/23 00:02 Olanzapine (Olanzapine 2.5 Mg Tab) 2.5 mg PO [facility] Stop: 01/17/23 20:59 Last Admin: 12/23/22 20:49 Dose: 2.5 mg Ondansetron HCl (Ondansetron Inj 2 Mg/Ml 2 Ml Vial) 4 mg IV Q6H PRN PRN Reason: Nausea Stop: 01/15/23 00:02 Polyethylene Glycol (Polyethylene (Miralax) 17 Gm Pack) 17 gm PO DAILY PRN PRN Reason: Constipation Stop: 01/15/23 00:02 Last Admin: 12/16/22 09:49 Dose: 17 gm Senna/Docusate Sodium (Docusate Sodium/Senna 50/8.6mg Tab) [facility]: 01/19/23 19:44 Last Admin: 12/25/22 07:51 Dose: 1 tab Terazosin HCl (Terazosin Hcl 1 Mg Cap) 4 mg PO HS VINOD Stop: 01/15/23 20:59 Last Admin: 12/24/22 21:09 Dose: 4 mg Valacyclovir HCl (Valacyclovir Hcl 500 Mg Tablet) 1,000 mg PO BID VINOD Stop: 01/15/23 08:59 Last Admin: 12/25/22 07:50 Dose: 1,000 mg
--- NOTE | 2022-12-25 11:36 | Electrocardiogram Report ---
Test Reason : Blood Pressure : / mmHG Vent. Rate : 060 BPM Atrial Rate : 060 BPM P-R Int : 000 ms QRS Dur : 124 ms QT Int : 438 ms P-R-T Axes : 000 142 121 degrees QTc Int : 438 ms Poor data quality, interpretation may be adversely affected Sinus bradycardia Right bundle branch block Abnormal ECG When compared with ECG of 21-DEC-2022 05:54, Vent. rate has decreased BY 34 BPM Confirmed by Henry Carbajal ([id number]) on 12/25/2022 11:36:35 AM Referred By: REFERRED SELF Confirmed By:Henry Carbajal
--- NOTE | 2022-12-25 11:42 | Electrocardiogram Report ---
Test Reason : Blood Pressure : / mmHG Vent. Rate : 064 BPM Atrial Rate : 065 BPM P-R Int : 000 ms QRS Dur : 068 ms QT Int : 410 ms P-R-T Axes : 000 145 128 degrees QTc Int : 422 ms Poor data quality, interpretation may be adversely affected Normal sinus rhythm with 1st degree A-V block Right axis deviation Low voltage QRS Septal infarct , age undetermined Abnormal ECG When compared with ECG of 24-DEC-2022 18:26, (unconfirmed) No significant change Confirmed by Henry Carbajal ([id number]) on 12/25/2022 11:41:41 AM Referred By: REFERRED SELF Confirmed By:Henry Carbajal
--- NOTE | 2022-12-25 11:59 | Pharmacy Report ---
Pharmacy Glycemic Short Note 2 - Date of Service December 25, 2022 - Glycemic Short BSG Results (Last 24 hours): 12/24/22 12/24/22 12/24/22 16:05 18:41 19:40 Glucose 305 H* POC Glucose 196 H 255 H 12/24/22 12/25/22 12/25/22 23:14 07:21 07:34 Glucose 259 H POC Glucose 203 H 242 H 12/25/22 11:16 Glucose POC Glucose 165 H OUTPATIENT ANTIDIABETIC REGIMEN: * Metformin 1gm PO daily * empagliflozin 10mg PO daily HbA1C: 9.4% (12/15/22) ASSESSMENT: 12/25: * BSGs [phone]/dL. Pt received 27 units of basal and 19 units of bolus insulin yesterday. * Continues on diet, other stressors stable. * Fasting BSG elevated this morning. Increase Lantus to 30 units daily, and tighten Novolog correction parameters slightly. 12/24: * Fasting improved from yesterday, still slightly above goal. Basal increased 2 units this AM. * Lunch BSG elevated, however, patient had late carbs that were covered @1029 and BSG @1129 * Will continue same novolog parameters as patient with good control over past 24 hours with current dosing 12/23: * BSGs [phone]/dL. Patient received 25 units of basal and 10 units of bolus insulin yesterday. * Tolerating diet, continues PO abx. * Will titrate Lantus to 27 units starting tomorrow d/t elevated fasting this AM. No change to Novolog. 12/22: * BSGs [phone]/dL the last 24h. Patient received 25 units of basal and 24 units of bolus insulin yesterday. * Tolerating a diet, continues on PO antibiotics. * Given fasting BSG within acceptable range, will continue with 25 units of basal daily. No change to Novolog parameters. 12/21: * BSGs [phone]/dL the last 24h. Patient received 20 units of basal and 26 units of bolus insulin yesterday. * On PO antibiotics and tolerating diet. * Given elevated fasting BSG of 228mg/dL, will increase basal today to 25 units. No change to Novolog parameters - tightened to 30/9 on 12/20. Will reassess basal tomorrow AM. 12/18 * Stressors stable. * Post-prandial BSG's all >180 mg/dL yesterday. Will tighten CHO ratio. * AM fasting BSG within goal range - no change to Lantus 12/17 * BSG's in or only slightly above goal range since transitioning off insulin drip yesterday * Looser than weight-based moderate stress CHO ratio effectively managing BSG's - continue same * AM fasting with notable trend down since yesterday AM and basal insulin not yet at steady state. Lower prandial doses required noted. Will therefore decrease basal insulin 12/16 * Patient is an 87 year old male who presented to the ED with weakness and an episode of N/V. History of recent type 2 DM diagnosis on metformin, which he was reportedly not tolerating and was switched to empagliflozin. Initial labs consistent with mild DKA - pH-7.28, AG-20, bicarb-17, glucose-307. Patient started on an insulin drip per DKA protocol around midnight. * Insulin drip running consistently at 4 unit/hr this AM. D51/2 NS w/ 20mEq KCl running @ 200ml/hr. Labs this AM - pH-7.39, AG-7, bicarb-25 and BSGs within goal range. Will begin to transition to SQ. * Lantus 20 units SQ X 1 (~0.3unit/kg, ~wt/stress 3 with BID dosing). Novolog ACHS with carb ratio to cover breakfast. Diet ordered. IVF to d/c once he eats. Overlap insulin drip with Lantus for at least 2 hours. Novolog overnight checks tonight and HS Lantus scale. PLAN FOR INPATIENT GLYCEMIC CONTROL: * Hold outpatient oral diabetes medications * Basal insulin * Lantus 30 units SQ qAM * Bolus insulin * NovoLog per scale ACHS or Q6hrs while NPO * Goal Range: Low 110 mg/dL - High 140 mg/dL * Correction Factor: 25 mg/dL/unit * Nutritional / Prandial insulin per carb ratio of 1 unit per 9 grams CHO consumed
[2022-12-25] MEDS ORDERED: IBUPROFEN 200 MG TAB PO STA (14:47)
[2022-12-25] MEDS: TERAZOSIN HCL 1 MG CAP PO SCH (20:37)
[2022-12-25] MEDS: MELATONIN 3 MG TAB PO SCH (20:42)
[2022-12-26] MEDS: DICLOFENAC SOD 1% GEL 100 GM TUBE EXT SCH ×5 (00:25→22:30)
[2022-12-26] MEDS ORDERED: OLANZapine 10 MG/2.1 ML SDV IM STA (01:10)
--- NOTE | 2022-12-26 08:55 | Hospitalist Progress Note ---
Date of Service December 26, 2022 Assessment & Plan (1) Ketoacidosis: Plan 87 yo male with PMH of HLD, allergic rhinitis, gout, HTN, near syncope, bradycardia, RBBB, first-degree AV block, diverticulum of bladder, BPH, degenerative disc disease, bilateral SNHL, balance problems who was started on metformin/was diagnosed with diabetes a couple of months ago/did not tolerate/stopped taking and presented to PCP office 12/09 with increased thirst/urination/fogginess [OP chart reviewed on 12/16] and was prescribed jardiance on 12/09 (I called pharmacy 12/16-he filled it on 12/10). 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 Upon asking pt reports taking it for 2 weeks, which won't be possible as he filled it in 12/10. He presented to the ED 12/15 for feeling weak/tired/not being able to get up from the bed and walk because of weakness. He had an episode of nausea and vomiting the day of arrival to ED. He is being managed for the following: Weakness DKA Patient presents with nausea, vomiting x1, weakness in the setting of recent diagnosis of diabetes. Admitting glucose of 307 and anion gap of 20. Admitting COVID/flu/RSV negative. Admitting WBC at baseline. Admitting chest exam clear to auscultation. Admitting UA not suggestive of UTI. 12/16 Bl Cx - NG 48 Hrs. Possible euglycemic/mildly hyperglycemic DKA due to Jardiance, status post insulin drip and DKA resolved, patient eating breakfast, improving nausea and vomiting, sliding scale insulin currently. d/w endocrinology, plan to dc him on basal insulin only. A1c this admission 9.4%, machinist helper marine consulted. Glycemic pharmacy on board, appreciate recommendation.d/w pharmacy - will use 10 unit lantus in AM on DC. Continue telemetry. PT/OT, CM to assist with DC planning. Monitor and replete electrolytes. due to him being weak and needing ongoing pt/ot, he will need rehab. affiliate marketing specialist evaled, he will need following at DC: 1.) Glargine vial. 2.) Insulin syringe U-100 with needle 0.3 mL 31 gauge x 15-64" (6mm) 3.) FreeStyle Clementine 2 [place] - 1 each. 4.) FreeStyle Clementine 2 Sensor Kit - 2 per 28 days. Acute kidney injury over CKD stage III: Admitting creatinine of 1.49 likely secondary to dehydration secondary to DKA, baseline creatinine around 1.1-1.2. Status post IV fluids. Resolved. Hospital delirium: psychiatry consulted- [facility] zyprexa, c/ w melatonin. QTc 462, has not needed prn zyprexa since 12/19 however overnight (12/23-12/24) pt again agitated and zyprexa prn given. mental status seems much improved now. Urinary retention/ concern for UTI: found to be retaining urine on bladder scan, no urgency to void; straight cathed 700cc on 12/17 and next time 500 cc after vazquez. Uro evaled, f/u uro as OP. c/w 12/18 cipro. 12/18 urine culture - e coli - finished Abx course w/ cipro Osteoarthritic pain: c/w tylenol or voltaren gel, will try to avoid NSAIDs or opiates as much as possible. Reviewed 12/21 Left ankle XR w/ no acute findings. Other chronic medical conditions: Paroxysmal A-fib single event in 2015 when he was on a steroid for polymyalgia rheumatica. Continue to monitor. 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 Continue home atenolol/losartan/terazosin as appropriate. 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 Continue to monitor. DVT prophylaxis: Heparin subcu Full code Disposition: PT/OT, CM to assist with DC planning. will need placement. pt stable for dc to rehab/snf. Admission and Anticipated Discharge Date Admission Date: December 15, 2022 Subjective Patient seen and examined at bedside as a follow-up of weakness, mild DKA. This morning sitting up in bed, in no acute distress. He is awake alert, answering simple questions appropriately. Reading newspaper. Annoyed from being in the hospital. Denies fevers chills chest pain shortness of breath. Denies abdominal pain Review of Systems Review of Systems: All systems reviewed & are unremarkable except as noted in Subjective Physical Exam 2 Physical Exam: GENERAL: The patient is alert and oriented, not in acute distress. HEENT: NC/AT. EOMI. Pupils equal, round and reactive to light. Oral mucosa dry. NECK: No JVD, no neck masses. CARDIOVASCULAR: S1 and S2 heard. Regular rate and rhythm. No murmur, no gallop. RESPIRATORY: Normal AP diameter. No accessory muscle use. No wheezing, no crackles. ABDOMEN: Soft, bowel sounds present, nontender, no distention. NEURO: Alert and oriented, somewhat hard of hearing. Speech is clear. No facial droop. Obeys simple commands. Insight is okay. Moves extremities. EXTREMITIES: No edema, no erythema. Results & Data Results & Data ([facility]) Vital Signs (Past 12 Hours) Vital Signs Temp Pulse Pulse Resp BP BP Pulse Ox 12/26/22 08:32 36.6 C 83 18 143/75 H 96 12/26/22 06:05 36.6 C 86 13 104/43 L 98 12/25/22 23:19 82 12/25/22 22:55 36.6 C 70 14 128/63 98 12/25/22 21:11 O2 Del Method 12/26/22 08:32 Room Air 12/26/22 06:05 Room Air 12/25/22 23:19 12/25/22 22:55 Room Air 12/25/22 21:11 Room Air Medications Administered Current Inpatient Medications Acetaminophen (Acetaminophen 325 Mg Tab) 650 mg PO Q4H PRN PRN Reason: Pain or Fever Stop: 01/15/23 00:02 Last Admin: 12/19/22 11:26 Dose: 650 mg Atenolol (Atenolol 25 Mg Tablet) 25 mg PO [facility] Stop: 01/15/23 08:59 Last Admin: 12/25/22 07:52 Dose: 25 mg Azelastine HCl (Azelastine Hcl 0.1% Nasal 200 Sprays/27,400 Mcg Btl) 2 sprays NA BID PRN PRN Reason: Congestion Stop: 01/15/23 00:02 Calcium Carbonate (Calcium Carbonate 500 Mg Chewable Tab) 1,000 mg PO BID PRN PRN Reason: Indigestion Stop: 01/15/23 08:00 Last Admin: 12/19/22 21:40 Dose: 1,000 mg Cetirizine HCl (Cetirizine Hcl 10 Mg Tablet) 10 mg PO DAILY PRN PRN Reason: Allergy Symptoms Stop: 01/15/23 00:02 Last Admin: 12/20/22 07:54 Dose: 10 mg Dextrose (Dextrose 50% 50 Ml Syringe) 25 - 50 ml IV UD PRN; Protocol PRN Reason: Hypoglycemia Protocol Stop: 01/15/23 00:44 Last Admin: 12/16/22 03:06 Dose: 25 ml Diclofenac Sodium (Diclofenac Sod 1% Gel 100 Gm Tube) 4 gm EXT Q6 [facility]; Protocol Stop: 01/20/23 09:59 Last Admin: 12/26/22 05:06 Dose: Not Given Famotidine (Famotidine 20 Mg Tab) 20 mg PO QAM [facility] Stop: 01/15/23 11:14 Last Admin: 12/25/22 07:52 Dose: 20 mg Glucagon (Glucagon For Inj 1 Mg Vial) 1 mg IM UD PRN; Protocol PRN Reason: Hypoglycemia Protocol Stop: 01/15/23 00:44 Glucose (Glucose 40% Gel 15 Gm Tube) 15 - 30 gm PO UD PRN; Protocol PRN Reason: Hypoglycemia Protocol Stop: 01/15/23 00:44 Glucose (Glucose 10 Tab/Tube) 4 - 8 tab PO UD PRN; Protocol PRN Reason: Hypoglycemia Protocol Stop: 01/15/23 00:44 Heparin Sodium (Porcine) (Heparin Sod 5,000 Unit/0.5 Ml Vial) 5,000 units SQ Q12 [facility] Stop: 01/15/23 08:59 Last Admin: 12/25/22 20:36 Dose: 5,000 units Hydroxyzine HCl (Hydroxyzine Hcl 25 Mg Tab) 25 mg PO TID PRN PRN Reason: Itching Stop: 01/15/23 00:02 Last Admin: 12/21/22 20:08 Dose: 25 mg Insulin Aspart (Insulin Aspart Per Unit) 0 units SC ACHS [facility] Stop: 01/15/23 08:14 Last Admin: 12/25/22 19:57 Dose: Not Given Insulin Glargine (Lantus Per Unit Charge) 30 units SQ QAM [facility] Stop: 01/21/23 08:59 Last Admin: 12/25/22 08:04 Dose: 30 units Losartan Potassium (Losartan Potassium 25 Mg Tab) 25 mg PO QAM [facility] Stop: 01/15/23 08:59 Last Admin: 12/25/22 07:52 Dose: 25 mg Magnesium Oxide (Magnesium Oxide 400 Mg Tab) 400 mg PO QAM [facility] Stop: 01/22/23 10:29 Last Admin: 12/25/22 07:51 Dose: 400 mg Melatonin (Melatonin 3 Mg Tab) 3 mg PO HS [facility] Stop: 01/17/23 20:59 Last Admin: 12/25/22 20:42 Dose: 3 mg Miscellaneous (Carbohydrates For Hypoglycemia ) 15 - 30 gm PO UD PRN PRN Reason: Hypoglycemia Treatment Stop: 01/15/23 00:44 Miscellaneous Information (Pharmacy Glycemic Mgmt Consult) 1 each N/A UD PRN PRN Reason: Consult Stop: 01/15/23 00:02 Nitroglycerin (Nitroglycerin Sl 0.4 Mg/Tab Tab) 0.4 mg SL Q5M PRN PRN Reason: Chest Pain Stop: 01/15/23 00:02 Olanzapine (Olanzapine 2.5 Mg Tab) 2.5 mg PO HS [facility] Stop: 01/17/23 20:59 Last Admin: 12/23/22 20:49 Dose: 2.5 mg Ondansetron HCl (Ondansetron Inj 2 Mg/Ml 2 Ml Vial) 4 mg IV Q6H PRN PRN Reason: Nausea Stop: 01/15/23 00:02 Polyethylene Glycol (Polyethylene (Miralax) 17 Gm Pack) 17 gm PO DAILY PRN PRN Reason: Constipation Stop: 01/15/23 00:02 Last Admin: 12/16/22 09:49 Dose: 17 gm Senna/Docusate Sodium (Docusate Sodium/Senna 50/8.6mg Tab) 1 tab PO QAM [facility] Stop: 01/19/23 19:44 Last Admin: 12/25/22 07:51 Dose: 1 tab Terazosin HCl (Terazosin Hcl 1 Mg Cap) 4 mg PO HS [facility] Stop: 01/15/23 20:59 Last Admin: 12/25/22 20:37 Dose: Not Given Valacyclovir HCl (Valacyclovir Hcl 500 Mg Tablet) 1,000 mg PO BID [facility] Stop: 01/15/23 08:59 Last Admin: 12/25/22 20:37 Dose: 1,000 mg
[2022-12-26] MEDS: INSULIN ASPART PER UNIT SC SCH ×4 (09:00→20:13)
[2022-12-26] MEDS: LANTUS PER UNIT CHARGE SQ SCH (09:00)
[2022-12-26] MEDS: FAMOTIDINE 20 MG TAB PO SCH (09:01)
[2022-12-26] MEDS: valACYclovir HCL 500 MG TABLET PO SCH ×2 (09:01→20:14)
[2022-12-26] MEDS: ATENOLOL 25 MG TABLET PO SCH (09:02)
[2022-12-26] MEDS: DOCUSATE SODIUM/SENNA 50/8.6MG TAB PO SCH (09:02)
[2022-12-26] MEDS: LOSARTAN POTASSIUM 25 MG TAB PO SCH (09:02)
[2022-12-26] MEDS: HEPARIN SOD 5,000 UNIT/0.5 ML VIAL SQ SCH ×2 (09:02→20:13)
[2022-12-26] MEDS: MAGNESIUM OXIDE 400 MG TAB PO SCH (09:03)
[2022-12-26 09:18] LABS: Hematocrit (blood only) 36.3 % (42.0-52.0); Hemoglobin 12.9 g/dl (14.0-18.0); Mean Corpuscular Hemoglobin 34.3 pg (25.0-34.0); Mean Corpuscular Hgb Conc 35.5 g/dL (32.0-36.0); Mean Corpuscular Volume 96.5 fL (80.0-100.0); Mean Platelet Volume 8.2 fL (9.4-12.4); Platelet Count 267 K/uL (130-400); RDW Standard Deviation 49.5 fL (36.4-46.3); Red Blood Count 3.76 M/uL (4.70-6.10)
[2022-12-26 10:19] LABS: BUN Creatinine Ratio 29.6 (10-20); Calcium 8.8 mg/dl (8.5-10.1); Creatinine Clr Calc Pharmacy 45.3 ml/min; Est GFR (African American) 71.1 ml/min; Est GFR (Non-African American) 61.4 ml/min; Phosphorus 3.6 mg/dl (2.5-4.9); Potassium 3.9 mmol/L (3.5-5.1)
[2022-12-26] MEDS: MELATONIN 3 MG TAB PO SCH (20:14)
[2022-12-26] MEDS: TERAZOSIN HCL 1 MG CAP PO SCH (20:14)
[2022-12-26] MEDS: ACETAMINOPHEN 325 MG TAB PO PRN (22:30)
[2022-12-27] MEDS: DICLOFENAC SOD 1% GEL 100 GM TUBE EXT SCH ×4 (06:14→23:31)
[2022-12-27 07:38] LABS: Calcium 8.3 mg/dl (8.5-10.1); Creatinine Clr Calc Pharmacy 47.4 ml/min; Est GFR (African American) 75.3 ml/min; Potassium 3.8 mmol/L (3.5-5.1)
[2022-12-27] MEDS: valACYclovir HCL 500 MG TABLET PO SCH ×2 (08:01→20:13)
[2022-12-27] MEDS: DOCUSATE SODIUM/SENNA 50/8.6MG TAB PO SCH (08:02)
[2022-12-27] MEDS: MAGNESIUM OXIDE 400 MG TAB PO SCH (08:02)
[2022-12-27] MEDS: ATENOLOL 25 MG TABLET PO SCH (08:03)
[2022-12-27] MEDS: FAMOTIDINE 20 MG TAB PO SCH (08:03)
[2022-12-27] MEDS: HEPARIN SOD 5,000 UNIT/0.5 ML VIAL SQ SCH ×2 (08:04→20:13)
[2022-12-27] MEDS: LOSARTAN POTASSIUM 25 MG TAB PO SCH (08:04)
[2022-12-27] MEDS: INSULIN ASPART PER UNIT SC SCH ×4 (08:13→20:13)
[2022-12-27] MEDS: LANTUS PER UNIT CHARGE SQ SCH (08:13)
[2022-12-27] MEDS: ACETAMINOPHEN 325 MG TAB PO PRN (10:23)
--- NOTE | 2022-12-27 11:58 | Hospitalist Progress Note ---
Date of Service December 27, 2022 Assessment & Plan (1) Ketoacidosis: Plan 87 yo male with PMH of HLD, allergic rhinitis, gout, HTN, near syncope, bradycardia, RBBB, first-degree AV block, diverticulum of bladder, BPH, degenerative disc disease, bilateral SNHL, balance problems who was started on metformin/was diagnosed with diabetes a couple of months ago/did not tolerate/stopped taking and presented to PCP office 12/09 with increased thirst/urination/fogginess [OP chart reviewed on 12/16] and was prescribed jardiance on 12/09 (I called pharmacy 12/16-he filled it on 12/10). 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 Upon asking pt reports taking it for 2 weeks, which won't be possible as he filled it in 12/10. He presented to the ED 12/15 for feeling weak/tired/not being able to get up from the bed and walk because of weakness. He had an episode of nausea and vomiting the day of arrival to ED. He is being managed for the following: Weakness DKA Patient presents with nausea, vomiting x1, weakness in the setting of recent diagnosis of diabetes. Admitting glucose of 307 and anion gap of 20. Admitting COVID/flu/RSV negative. Admitting WBC at baseline. Admitting chest exam clear to auscultation. Admitting UA not suggestive of UTI. 12/16 Bl Cx - NG 48 Hrs. Possible euglycemic/mildly hyperglycemic DKA due to Jardiance, status post insulin drip and DKA resolved, patient eating breakfast, improving nausea and vomiting, sliding scale insulin currently. d/w endocrinology, plan to dc him on basal insulin only. A1c this admission 9.4%, irrigation equipment remover consulted. Glycemic pharmacy on board, appreciate recommendation.d/w pharmacy - will use 10 unit lantus in AM on DC. Continue telemetry. PT/OT, CM to assist with DC planning. Monitor and replete electrolytes. due to him being weak and needing ongoing pt/ot, he will need rehab. aoc plans intelligence officer chief evaled, he will need following at DC: 1.) Glargine vial. 2.) Insulin syringe U-100 with needle 0.3 mL 31 gauge x 15-64" (6mm) 3.) FreeStyle Clementine 2 [place] - 1 each. 4.) FreeStyle Clementine 2 Sensor Kit - 2 per 28 days. Acute kidney injury over CKD stage III: Admitting creatinine of 1.49 likely secondary to dehydration secondary to DKA, baseline creatinine around 1.1-1.2. Status post IV fluids. Resolved. Hospital delirium: psychiatry consulted- [facility] zyprexa, c/ w melatonin. QTc 462, has not needed prn zyprexa since 12/19 however overnight (12/23-12/24) pt again agitated and zyprexa prn given. mental status seems much improved now. Urinary retention/ concern for UTI: found to be retaining urine on bladder scan, no urgency to void; straight cathed 700cc on 12/17 and next time 500 cc after vazquez. Uro evaled, f/u uro as OP. c/w 12/18 cipro. 12/18 urine culture - e coli - finished Abx course w/ cipro Osteoarthritic pain: c/w tylenol or voltaren gel, will try to avoid NSAIDs or opiates as much as possible. Reviewed 12/21 Left ankle XR w/ no acute findings. Other chronic medical conditions: Paroxysmal A-fib single event in 2015 when he was on a steroid for polymyalgia rheumatica. Continue to monitor. 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 Continue home atenolol/losartan/terazosin as appropriate. 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 Continue to monitor. DVT prophylaxis: Heparin subcu Full code Disposition: PT/OT, CM to assist with DC planning. will need placement. pt stable for dc to rehab/snf. Admission and Anticipated Discharge Date Admission Date: December 15, 2022 Subjective Patient seen and examined at bedside as a follow-up of weakness, mild DKA. This morning sitting up in chair, in no acute distress. He is awake alert, answering simple questions appropriately. Denies fevers chills chest pain shortness of breath. Denies abdominal pain Review of Systems Review of Systems: All systems reviewed & are unremarkable except as noted in Subjective Physical Exam Physical Exam: GENERAL: The patient is alert and oriented, not in acute distress. HEENT: NC/AT. EOMI. Pupils equal, round and reactive to light. Oral mucosa dry. NECK: No JVD, no neck masses. CARDIOVASCULAR: S1 and S2 heard. Regular rate and rhythm. No murmur, no gallop. RESPIRATORY: Normal AP diameter. No accessory muscle use. No wheezing, no crackles. ABDOMEN: Soft, bowel sounds present, nontender, no distention. NEURO: Alert and oriented, somewhat hard of hearing. Speech is clear. No facial droop. Obeys simple commands. Insight is okay. Moves extremities. EXTREMITIES: No edema, no erythema. Results & Data Results & Data ([facility]) Vital Signs (Past 12 Hours) Vital Signs Temp Pulse Resp BP Pulse Ox O2 Del Method 12/27/22 08:00 Room Air 12/27/22 08:00 36.6 C 83 20 113/61 95 Room Air 12/27/22 03:20 36.5 C 78 20 124/61 96 Room Air Laboratory Results 12/27/22 12/27/22 12/27/22 Range/Units 11:24 07:22 06:43 Sodium 140 (136-145) mmol/L Potassium 3.8 (3.5-5.1) mmol/L Chloride 110 H (98-107) mmol/L Carbon Dioxide 26 (21-32) mmol/L Anion Gap 4 (3-11) BUN 34 H (6-23) mg/dl Creatinine 1.03 (0.6-1.4) mg/dl Est Cr Clr Drug Dosing 47.4 ml/min Est GFR ( Amer) 75.3 ml/min Est GFR (Non-Af Amer) 65.0 ml/min BUN/Creatinine Ratio 33.0 H (10-20) Glucose 110 H (70-99(Fasting)) mg/dl POC Glucose 92 110 H (70-99) mg/dl Calcium 8.3 L (8.5-10.1) mg/dl 12/26/22 12/26/22 Range/Units 19:39 16:42 Sodium (136-145) mmol/L Potassium (3.5-5.1) mmol/L Chloride (98-107) mmol/L Carbon Dioxide (21-32) mmol/L Anion Gap (3-11) BUN (6-23) mg/dl Creatinine (0.6-1.4) mg/dl Est Cr Clr Drug Dosing ml/min Est GFR ( Amer) ml/min Est GFR (Non-Af Amer) ml/min BUN/Creatinine Ratio (10-20) Glucose (70-99(Fasting)) mg/dl POC Glucose 78 119 H (70-99) mg/dl Calcium (8.5-10.1) mg/dl Medications Administered Current Inpatient Medications Acetaminophen (Acetaminophen 325 Mg Tab) 650 mg PO Q4H PRN PRN Reason: Pain or Fever Stop: 01/15/23 00:02 Last Admin: 12/27/22 10:23 Dose: 650 mg Atenolol (Atenolol 25 Mg Tablet) 25 mg PO [facility] Stop: 01/15/23 08:59 Last Admin: 12/27/22 08:03 Dose: 25 mg Azelastine HCl (Azelastine Hcl 0.1% Nasal 200 Sprays/27,400 Mcg Btl) 2 sprays NA BID PRN PRN Reason: Congestion Stop: 01/15/23 00:02 Calcium Carbonate (Calcium Carbonate 500 Mg Chewable Tab) 1,000 mg PO BID PRN PRN Reason: Indigestion Stop: 01/15/23 08:00 Last Admin: 12/19/22 21:40 Dose: 1,000 mg Cetirizine HCl (Cetirizine Hcl 10 Mg Tablet) 10 mg PO DAILY PRN PRN Reason: Allergy Symptoms Stop: 01/15/23 00:02 Last Admin: 12/20/22 07:54 Dose: 10 mg Dextrose (Dextrose 50% 50 Ml Syringe) 25 - 50 ml IV UD PRN; Protocol PRN Reason: Hypoglycemia Protocol Stop: 01/15/23 00:44 Last Admin: 12/16/22 03:06 Dose: 25 ml Diclofenac Sodium (Diclofenac Sod 1% Gel 100 Gm Tube) 4 gm EXT Q6 [facility]; Protocol Stop: 01/20/23 09:59 Last Admin: 12/27/22 11:51 Dose: 4 gm Famotidine (Famotidine 20 Mg Tab) [facility] [place]: 01/15/23 11:14 Last Admin: 12/27/22 08:03 Dose: 20 mg Glucagon (Glucagon For Inj 1 Mg Vial) 1 mg IM UD PRN; Protocol PRN Reason: Hypoglycemia Protocol Stop: 01/15/23 00:44 Glucose (Glucose 40% Gel 15 Gm Tube) 15 - 30 gm PO UD PRN; Protocol PRN Reason: Hypoglycemia Protocol Stop: 01/15/23 00:44 Glucose (Glucose 10 Tab/Tube) 4 - 8 tab PO UD PRN; Protocol PRN Reason: Hypoglycemia Protocol Stop: 01/15/23 00:44 Heparin Sodium (Porcine) (Heparin Sod 5,000 Unit/0.5 Ml Vial) 5,000 units SQ Q12 [facility] Stop: 01/15/23 08:59 Last Admin: 12/27/22 08:04 Dose: 5,000 units Hydroxyzine HCl (Hydroxyzine Hcl 25 Mg Tab) 25 mg PO TID PRN PRN Reason: Itching Stop: 01/15/23 00:02 Last Admin: 12/21/22 20:08 Dose: 25 mg Insulin Aspart (Insulin Aspart Per Unit) 0 units SC ACHS [facility] Stop: 01/15/23 08:14 Last Admin: 12/27/22 11:50 Dose: 3 units Insulin Glargine (Lantus Per Unit Charge) 25 units SQ QAM [facility] Stop: 01/26/23 08:59 Last Admin: 12/27/22 08:13 Dose: 25 units Losartan Potassium (Losartan Potassium 25 Mg Tab) 25 mg PO QAM [facility] Stop: 01/15/23 08:59 Last Admin: 12/27/22 08:04 Dose: 25 mg Magnesium Oxide (Magnesium Oxide 400 Mg Tab) 400 mg PO QAM [facility] Stop: 01/22/23 10:29 Last Admin: 12/27/22 08:02 Dose: 400 mg Melatonin (Melatonin 3 Mg Tab) 3 mg PO HS [facility] Stop: 01/17/23 20:59 Last Admin: 12/26/22 20:14 Dose: 3 mg Miscellaneous (Carbohydrates For Hypoglycemia ) 15 - 30 gm PO UD PRN PRN Reason: Hypoglycemia Treatment Stop: 01/15/23 00:44 Miscellaneous Information (Pharmacy Glycemic Mgmt Consult) 1 each N/A UD PRN PRN Reason: Consult Stop: 01/15/23 00:02 Nitroglycerin (Nitroglycerin Sl 0.4 Mg/Tab Tab) 0.4 mg SL Q5M PRN PRN Reason: Chest Pain Stop: 01/15/23 00:02 Olanzapine (Olanzapine 2.5 Mg Tab) 2.5 mg PO HS [facility] Stop: 01/17/23 20:59 Last Admin: 12/23/22 20:49 Dose: 2.5 mg Ondansetron HCl (Ondansetron Inj 2 Mg/Ml 2 Ml Vial) 4 mg IV Q6H PRN PRN Reason: Nausea Stop: 01/15/23 00:02 Polyethylene Glycol (Polyethylene (Miralax) 17 Gm Pack) 17 gm PO DAILY PRN PRN Reason: Constipation Stop: 01/15/23 00:02 Last Admin: 12/16/22 09:49 Dose: 17 gm Senna/Docusate Sodium (Docusate Sodium/Senna 50/8.6mg Tab) 1 tab PO QAM [facility] Stop: 01/19/23 19:44 Last Admin: 12/27/22 08:02 Dose: Not Given Terazosin HCl (Terazosin Hcl 1 Mg Cap) 4 mg PO HS [facility] Stop: 01/15/23 20:59 Last Admin: 12/26/22 20:14 Dose: 4 mg Valacyclovir HCl (Valacyclovir Hcl 500 Mg Tablet) 1,000 mg PO BID [facility] Stop: 01/15/23 08:59 Last Admin: 12/27/22 08:01 Dose: 1,000 mg
[2022-12-27] MEDS: IBUPROFEN 200 MG TAB PO PRN ×2 (15:06→23:30)
[2022-12-27] MEDS: TERAZOSIN HCL 1 MG CAP PO SCH (20:13)
[2022-12-27] MEDS: MELATONIN 3 MG TAB PO SCH (20:13)
[2022-12-28] MEDS: OLANZapine ZYDIS 5 MG ORALLY DIS. TAB PO ONE ×2 (03:52→04:00)
[2022-12-28] MEDS: DICLOFENAC SOD 1% GEL 100 GM TUBE EXT SCH ×3 (05:31→16:59)
--- NOTE | 2022-12-28 10:02 | Pharmacy Report ---
Pharmacy Glycemic Short Note 2 - Date of Service December 28, 2022 - Glycemic Short BSG Results (Last 24 hours): 12/27/22 12/27/22 12/27/22 11:24 16:28 20:08 POC Glucose 92 177 H 166 H 12/28/22 09:30 POC Glucose 123 H OUTPATIENT ANTIDIABETIC REGIMEN: * Metformin 1gm PO daily * empagliflozin 10mg PO daily HbA1C: 9.4% (12/15/22) ASSESSMENT: 12/28 * BSGs well controlled over last 24 hrs while tolerating a diet. * 40 units SQ insulin given over last 24 hrs * Fasting BSG at goal this AM with 25 units basal on board, will continue * Post-prandial BSGs controlled with current CF and CR, will continue 12/25: * BSGs [phone]/dL. Pt received 27 units of basal and 19 units of bolus insulin yesterday. * Continues on diet, other stressors stable. * Fasting BSG elevated this morning. Increase Lantus to 30 units daily, and tighten Novolog correction parameters slightly. 12/24: * Fasting improved from yesterday, still slightly above goal. Basal increased 2 units this AM. * Lunch BSG elevated, however, patient had late carbs that were covered @1029 and BSG @1129 * Will continue same novolog parameters as patient with good control over past 24 hours with current dosing PLAN FOR INPATIENT GLYCEMIC CONTROL: * Hold outpatient oral diabetes medications * Basal insulin * Lantus 25 units SQ qAM * Bolus insulin * NovoLog per scale ACHS or Q6hrs while NPO * Goal Range: Low 110 mg/dL - High 140 mg/dL * Correction Factor: 30 mg/dL/unit * Nutritional / Prandial insulin per carb ratio of 1 unit per 9 grams CHO consumed
[2022-12-28] MEDS: INSULIN ASPART PER UNIT SC SCH ×4 (10:05→20:12)
[2022-12-28] MEDS: DOCUSATE SODIUM/SENNA 50/8.6MG TAB PO SCH (10:05)
[2022-12-28] MEDS: valACYclovir HCL 500 MG TABLET PO SCH ×2 (10:20→20:06)
[2022-12-28] MEDS: hydrOXYzine HCl 25 MG TAB PO PRN (10:21)
[2022-12-28] MEDS: CETIRIZINE HCL 10 MG TABLET PO PRN (10:22)
[2022-12-28] MEDS: HEPARIN SOD 5,000 UNIT/0.5 ML VIAL SQ SCH ×2 (10:22→20:05)
[2022-12-28] MEDS: FAMOTIDINE 20 MG TAB PO SCH (10:23)
[2022-12-28] MEDS: ATENOLOL 25 MG TABLET PO SCH (10:23)
[2022-12-28] MEDS: LOSARTAN POTASSIUM 25 MG TAB PO SCH (10:23)
[2022-12-28] MEDS: MAGNESIUM OXIDE 400 MG TAB PO SCH (10:23)
[2022-12-28] MEDS: LANTUS PER UNIT CHARGE SQ SCH (10:26)
[2022-12-28 10:57] LABS: BUN Creatinine Ratio 27.9 (10-20); Creatinine Clr Calc Pharmacy 47.5 ml/min; Est GFR (African American) 74.5 ml/min; Est GFR (Non-African American) 64.3 ml/min; Potassium 4.2 mmol/L (3.5-5.1)
--- NOTE | 2022-12-28 14:00 | Hospitalist Progress Note ---
Date of Service December 28, 2022 Assessment & Plan (1) Ketoacidosis: Plan 87 yo M with PMH of HLD, allergic rhinitis, gout, HTN, near syncope, bradycardia, RBBB, first-degree AV block, diverticulum of bladder, BPH, degenerative disc disease, bilateral SNHL, balance problems who was started on metformin/was diagnosed with diabetes a couple of months ago/did not tolerate/stopped taking and presented to PCP office 12/09 with increased thirst/urination/fogginess [OP chart reviewed on 12/16] and was prescribed jardiance on 12/09 (I called pharmacy 12/16-he filled it on 12/10). 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 Upon asking pt reports taking it for 2 weeks, which won't be possible as he filled it in 12/10. He presented to the ED 12/15 for feeling weak/tired/not being able to get up from the bed and walk because of weakness. He had an episode of nausea and vomiting the day of arrival to ED. He is being managed for the following: Weakness DKA Patient presents with nausea, vomiting x1, weakness in the setting of recent diagnosis of diabetes. Admitting glucose of 307 and anion gap of 20. Admitting COVID/flu/RSV negative. Admitting WBC at baseline. Admitting chest exam clear to auscultation. Admitting UA not suggestive of UTI. 12/16 Bl Cx - NG 48 Hrs. Possible euglycemic/mildly hyperglycemic DKA due to Jardiance, status post insulin drip and DKA resolved, patient eating breakfast, improving nausea and vomiting, sliding scale insulin currently. d/w endocrinology, plan to dc him on basal insulin only. A1c this admission 9.4%, building construction superintendent consulted. Glycemic pharmacy on board, appreciate recommendation.d/w pharmacy - will use daily lantus in AM on DC. Continue telemetry. PT/OT, CM to assist with DC planning. Monitor and replete electrolytes. due to him being weak and needing ongoing pt/ot, he will need rehab. diabetic educator evaled, he will need following at DC: 1.) Glargine vial. 2.) Insulin syringe U-100 with needle 0.3 mL 31 gauge x 15-64" (6mm) 3.) FreeStyle Clementine 2 [place] - 1 each. 4.) FreeStyle Clementine 2 Sensor Kit - 2 per 28 days. Acute kidney injury over CKD stage III: Admitting creatinine of 1.49 likely secondary to dehydration secondary to DKA, baseline creatinine around 1.1-1.2. Status post IV fluids. Resolved. Hospital delirium: psychiatry consulted- [facility] zyprexa, c/ w melatonin. QTc 462, has not needed prn zyprexa since 12/19 however overnight (12/23-12/24) pt again agitated and zyprexa prn given. mental status seems much improved now. Urinary retention/ concern for UTI: found to be retaining urine on bladder scan, no urgency to void; straight cathed 700cc on 12/17 and next time 500 cc after vazquez. Uro evaled, f/u uro as OP. c/w 12/18 cipro. 12/18 urine culture - e coli - finished Abx course w/ cipro Osteoarthritic pain: c/w tylenol or voltaren gel, will try to avoid NSAIDs or opiates as much as possible. Reviewed 12/21 Left ankle XR w/ no acute findings. Other chronic medical conditions: Paroxysmal A-fib single event in 2015 when he was on a steroid for polymyalgia rheumatica. Continue to monitor. 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 Continue home atenolol/losartan/terazosin as appropriate. 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 Continue to monitor. DVT prophylaxis: Heparin subcu Full code Disposition: PT/OT, CM to assist with DC planning. will need placement. pt stable for dc to rehab/snf. Admission and Anticipated Discharge Date Admission Date: December 15, 2022 Subjective Patient seen and examined at bedside as a follow-up of weakness, mild DKA. Currently resting in bed , in no acute distress. He is awake alert, answering simple questions appropriately. He is eager to be discharged and is inquiring about [facility]. Pt's son is present at the bedside and updated. Denies fevers chills chest pain shortness of breath. Denies abdominal pain Review of Systems Review of Systems: All systems reviewed & are unremarkable except as noted in Subjective Physical Exam Physical Exam: GENERAL: The patient is alert and oriented, not in acute distress. HEENT: NC/AT. EOMI. Pupils equal, round and reactive to light. Oral mucosa dry. NECK: No JVD, no neck masses. CARDIOVASCULAR: S1 and S2 heard. Regular rate and rhythm. No murmur, no gallop. RESPIRATORY: Normal AP diameter. No accessory muscle use. No wheezing, no crackles. ABDOMEN: Soft, bowel sounds present, nontender, no distention. : Vazquez catheter placed, clear yellow urine is draining. NEURO: Alert and oriented, somewhat hard of hearing. Speech is clear. No facial droop. Obeys simple commands. Insight is okay. Moves extremities. EXTREMITIES: No edema, no erythema. Results & Data Results & Data ([facility]) Vital Signs (Past 12 Hours) Vital Signs Temp Pulse Pulse Resp BP Pulse Ox O2 Del Method 12/28/22 11:31 36.9 C 91 H 19 112/62 94 Room Air 12/28/22 08:00 36.8 C 81 18 123/72 96 Room Air 12/28/22 07:51 62 12/28/22 02:58 36.4 C L 96 H 16 132/60 94 Room Air Laboratory Results 12/28/22 12/28/22 12/28/22 Range/Units 11:29 10:01 09:30 Sodium 140 (136-145) mmol/L Potassium 4.2 (3.5-5.1) mmol/L Chloride 110 H (98-107) mmol/L Carbon Dioxide 25 (21-32) mmol/L Anion Gap 5 (3-11) BUN 29 H (6-23) mg/dl Creatinine 1.04 (0.6-1.4) mg/dl Est Cr Clr Drug Dosing 47.5 ml/min Est GFR ( Amer) 74.5 ml/min Est GFR (Non-Af Amer) 64.3 ml/min BUN/Creatinine Ratio 27.9 H (10-20) Glucose 121 H (70-99(Fasting)) mg/dl POC Glucose 115 H 123 H (70-99) mg/dl Calcium 8.0 L (8.5-10.1) mg/dl 12/27/22 12/27/22 Range/Units 20:08 16:28 Sodium (136-145) mmol/L Potassium (3.5-5.1) mmol/L Chloride (98-107) mmol/L Carbon Dioxide (21-32) mmol/L Anion Gap (3-11) BUN (6-23) mg/dl Creatinine (0.6-1.4) mg/dl Est Cr Clr Drug Dosing ml/min Est GFR ( Amer) ml/min Est GFR (Non-Af Amer) ml/min BUN/Creatinine Ratio (10-20) Glucose (70-99(Fasting)) mg/dl POC Glucose 166 H 177 H (70-99) mg/dl Calcium (8.5-10.1) mg/dl Medications Administered Current Inpatient Medications Acetaminophen (Acetaminophen 325 Mg Tab) 650 mg PO Q4H PRN PRN Reason: Pain or Fever Stop: 01/15/23 00:02 Last Admin: 12/27/22 10:23 Dose: 650 mg Atenolol (Atenolol 25 Mg Tablet) 25 mg PO [facility] Stop: 01/15/23 08:59 Last Admin: 12/28/22 10:23 Dose: 25 mg Azelastine HCl (Azelastine Hcl 0.1% Nasal 200 Sprays/27,400 Mcg Btl) 2 sprays NA BID PRN PRN Reason: Congestion Stop: 01/15/23 00:02 Calcium Carbonate (Calcium Carbonate 500 Mg Chewable Tab) 1,000 mg PO BID PRN PRN Reason: Indigestion Stop: 01/15/23 08:00 Last Admin: 12/19/22 21:40 Dose: 1,000 mg Cetirizine HCl (Cetirizine Hcl 10 Mg Tablet) 10 mg PO DAILY PRN PRN Reason: Allergy Symptoms Stop: 01/15/23 00:02 Last Admin: 12/28/22 10:22 Dose: 10 mg Dextrose (Dextrose 50% 50 Ml Syringe) 25 - 50 ml IV UD PRN; Protocol PRN Reason: Hypoglycemia Protocol Stop: 01/15/23 00:44 Last Admin: 12/16/22 03:06 Dose: 25 ml Diclofenac Sodium (Diclofenac Sod 1% Gel 100 Gm Tube) 4 gm EXT Q6 [facility]; Protocol Stop: 01/20/23 09:59 Last Admin: 12/28/22 11:11 Dose: Not Given Famotidine (Famotidine 20 Mg Tab) [facility] [place] [place]: 01/15/23 11:14 Last Admin: 12/28/22 10:23 Dose: 20 mg Glucagon (Glucagon For Inj 1 Mg Vial) 1 mg IM UD PRN; Protocol PRN Reason: Hypoglycemia Protocol Stop: 01/15/23 00:44 Glucose (Glucose 40% Gel 15 Gm Tube) 15 - 30 gm PO UD PRN; Protocol PRN Reason: Hypoglycemia Protocol Stop: 01/15/23 00:44 Glucose (Glucose 10 Tab/Tube) 4 - 8 tab PO UD PRN; Protocol PRN Reason: Hypoglycemia Protocol Stop: 01/15/23 00:44 Heparin Sodium (Porcine) (Heparin Sod 5,000 Unit/0.5 Ml Vial) 5,000 units SQ Q12 [facility] Stop: 01/15/23 08:59 Last Admin: 12/28/22 10:22 Dose: 5,000 units Hydroxyzine HCl (Hydroxyzine Hcl 25 Mg Tab) 25 mg PO TID PRN PRN Reason: Itching Stop: 01/15/23 00:02 Last Admin: 12/28/22 10:21 Dose: 25 mg Ibuprofen (Ibuprofen 200 Mg Tab) 200 mg PO Q6H PRN PRN Reason: ankle/toe pain Stop: 01/26/23 14:04 Last Admin: 12/27/22 23:30 Dose: 200 mg Insulin Aspart (Insulin Aspart Per Unit) 0 units SC ACHS [facility] Stop: 01/15/23 08:14 Last Admin: 12/28/22 12:38 Dose: 7 units Insulin Glargine (Lantus Per Unit Charge) 25 units SQ QAM [facility] Stop: 01/26/23 08:59 Last Admin: 12/28/22 10:26 Dose: 25 units Losartan Potassium (Losartan Potassium 25 Mg Tab) 25 mg PO QAM [facility] Stop: 01/15/23 08:59 Last Admin: 12/28/22 10:23 Dose: 25 mg Magnesium Oxide (Magnesium Oxide 400 Mg Tab) 400 mg PO QAM [facility] Stop: 01/22/23 10:29 Last Admin: 12/28/22 10:23 Dose: 400 mg Melatonin (Melatonin 3 Mg Tab) 3 mg PO HS [facility] Stop: 01/17/23 20:59 Last Admin: 12/27/22 20:13 Dose: 3 mg Miscellaneous (Carbohydrates For Hypoglycemia ) 15 - 30 gm PO UD PRN PRN Reason: Hypoglycemia Treatment Stop: 01/15/23 00:44 Miscellaneous Information (Pharmacy Glycemic Mgmt Consult) 1 each N/A UD PRN PRN Reason: Consult Stop: 01/15/23 00:02 Nitroglycerin (Nitroglycerin Sl 0.4 Mg/Tab Tab) 0.4 mg SL Q5M PRN PRN Reason: Chest Pain Stop: 01/15/23 00:02 Olanzapine (Olanzapine 2.5 Mg Tab) 2.5 mg PO HS [facility] Stop: 01/17/23 20:59 Last Admin: 12/23/22 20:49 Dose: 2.5 mg Ondansetron HCl (Ondansetron Inj 2 Mg/Ml 2 Ml Vial) 4 mg IV Q6H PRN PRN Reason: Nausea Stop: 01/15/23 00:02 Polyethylene Glycol (Polyethylene (Miralax) 17 Gm Pack) 17 gm PO DAILY PRN PRN Reason: Constipation Stop: 01/15/23 00:02 Last Admin: 12/16/22 09:49 Dose: 17 gm Senna/Docusate Sodium (Docusate Sodium/Senna 50/8.6mg Tab) 1 tab PO QAM [facility] Stop: 01/19/23 19:44 Last Admin: 12/28/22 10:05 Dose: Not Given Terazosin HCl (Terazosin Hcl 1 Mg Cap) 4 mg PO HS [facility] Stop: 01/15/23 20:59 Last Admin: 12/27/22 20:13 Dose: 4 mg Valacyclovir HCl (Valacyclovir Hcl 500 Mg Tablet) 1,000 mg PO BID [facility] Stop: 01/15/23 08:59 Last Admin: 12/28/22 10:20 Dose: 1,000 mg
[2022-12-28] MEDS: ACETAMINOPHEN 325 MG TAB PO PRN (16:33)
[2022-12-28] MEDS ORDERED: OLANZAPINE 2.5 MG TAB PO PRN (19:22)
[2022-12-28] MEDS: MELATONIN 3 MG TAB PO SCH (20:05)
[2022-12-28] MEDS: TERAZOSIN HCL 1 MG CAP PO SCH (20:06)
[2022-12-29] MEDS: DICLOFENAC SOD 1% GEL 100 GM TUBE EXT SCH ×4 (01:58→17:28)
[2022-12-29] MEDS: valACYclovir HCL 500 MG TABLET PO SCH ×2 (08:42→23:29)
[2022-12-29] MEDS: INSULIN ASPART PER UNIT SC SCH ×4 (08:42→20:25)
[2022-12-29] MEDS: hydrOXYzine HCl 25 MG TAB PO PRN ×2 (08:43→20:19)
[2022-12-29] MEDS: DOCUSATE SODIUM/SENNA 50/8.6MG TAB PO SCH (08:43)
[2022-12-29] MEDS: HEPARIN SOD 5,000 UNIT/0.5 ML VIAL SQ SCH ×2 (08:43→21:00)
[2022-12-29] MEDS: ATENOLOL 25 MG TABLET PO SCH (08:43)
[2022-12-29] MEDS: LOSARTAN POTASSIUM 25 MG TAB PO SCH (08:43)
[2022-12-29] MEDS: CETIRIZINE HCL 10 MG TABLET PO PRN (08:44)
[2022-12-29] MEDS: MAGNESIUM OXIDE 400 MG TAB PO SCH (08:44)
[2022-12-29] MEDS: FAMOTIDINE 20 MG TAB PO SCH (08:45)
[2022-12-29] MEDS: LANTUS PER UNIT CHARGE SQ SCH (08:46)
[2022-12-29] MEDS: POLYETHYLENE (MIRALAX) 17 GM PACK PO PRN (11:16)
[2022-12-29] MEDS ORDERED: bisacodyL 10 MG SUPP PR STA (13:26)
[2022-12-29] MEDS: IBUPROFEN 200 MG TAB PO PRN ×2 (15:09→20:19)
[2022-12-29] MEDS ORDERED: KETOROLAC TROMETHAMINE 15 MG/ML VIAL IV ONE (15:12)
--- NOTE | 2022-12-29 15:19 | Hospitalist Progress Note ---
Date of Service December 29, 2022 Assessment & Plan (1) Ketoacidosis: Plan 87 yo M with PMH of HLD, allergic rhinitis, gout, HTN, near syncope, bradycardia, RBBB, first-degree AV block, diverticulum of bladder, BPH, degenerative disc disease, bilateral SNHL, balance problems who was started on metformin/was diagnosed with diabetes a couple of months ago/did not tolerate/stopped taking and presented to PCP office 12/09 with increased thirst/urination/fogginess [OP chart reviewed on 12/16] and was prescribed jardiance on 12/09 (I called pharmacy 12/16-he filled it on 12/10). 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 Upon asking pt reports taking it for 2 weeks, which won't be possible as he filled it in 12/10. He presented to the ED 12/15 for feeling weak/tired/not being able to get up from the bed and walk because of weakness. He had an episode of nausea and vomiting the day of arrival to ED. He is being managed for the following: Weakness DKA Patient presents with nausea, vomiting x1, weakness in the setting of recent diagnosis of diabetes. Admitting glucose of 307 and anion gap of 20. Admitting COVID/flu/RSV negative. Admitting WBC at baseline. Admitting chest exam clear to auscultation. Admitting UA not suggestive of UTI. 12/16 Bl Cx - NG 48 Hrs. Possible euglycemic/mildly hyperglycemic DKA due to Jardiance, status post insulin drip and DKA resolved, patient eating breakfast, improving nausea and vomiting, sliding scale insulin currently. d/w endocrinology, plan to dc him on basal insulin only. A1c this admission 9.4%, hematology nurse educator consulted. Glycemic pharmacy on board, appreciate recommendation.d/w pharmacy - will use daily lantus in AM on DC. Continue telemetry. PT/OT, CM to assist with DC planning. Monitor and replete electrolytes. due to him being weak and needing ongoing pt/ot, he will need rehab. medical educator evaled, he will need following at DC: 1.) Glargine vial. 2.) Insulin syringe U-100 with needle 0.3 mL 31 gauge x 15-64" (6mm) 3.) FreeStyle Clementine 2 [place] - 1 each. 4.) FreeStyle Clementine 2 Sensor Kit - 2 per 28 days. Acute kidney injury over CKD stage III: Admitting creatinine of 1.49 likely secondary to dehydration secondary to DKA, baseline creatinine around 1.1-1.2. Status post IV fluids. Resolved. Hospital delirium: psychiatry consulted- [facility] zyprexa, c/ w melatonin. QTc 462, has not needed prn zyprexa since 12/19 however overnight (12/23-12/24) pt again agitated and zyprexa prn given. mental status seems much improved now. Urinary retention/ concern for UTI: found to be retaining urine on bladder scan, no urgency to void; straight cathed 700cc on 12/17 and next time 500 cc after vazquez. Uro evaled, f/u uro as OP. c/w 12/18 cipro. 12/18 urine culture - e coli - finished Abx course w/ cipro Osteoarthritic pain: c/w tylenol or voltaren gel, will try to avoid NSAIDs or opiates as much as possible. Reviewed 12/21 Left ankle XR w/ no acute findings. Other chronic medical conditions: Paroxysmal A-fib single event in 2015 when he was on a steroid for polymyalgia rheumatica. Continue to monitor. 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 Continue home atenolol/losartan/terazosin as appropriate. 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 Continue to monitor. DVT prophylaxis: Heparin subcu Full code Disposition: plan to DC to [facility] Admission and Anticipated Discharge Date Admission Date: December 15, 2022 Subjective Patient seen and examined at bedside as a follow-up of weakness, mild DKA. Currently resting in bed , in no acute distress. He is awake alert, answering simple questions appropriately. He is eager to be discharged and is inquiring about [facility]. Pt's is present at the bedside and updated. Denies fevers chills chest pain shortness of breath. Denies abdominal pain Review of Systems Review of Systems: All systems reviewed & are unremarkable except as noted in Subjective Physical Exam Physical Exam: GENERAL: The patient is alert and oriented, not in acute distress. HEENT: NC/AT. EOMI. Pupils equal, round and reactive to light. Oral mucosa dry. NECK: No JVD, no neck masses. CARDIOVASCULAR: S1 and S2 heard. Regular rate and rhythm. No murmur, no gallop. RESPIRATORY: Normal AP diameter. No accessory muscle use. No wheezing, no crackles. ABDOMEN: Soft, bowel sounds present, nontender, no distention. : Vazquez catheter placed, clear yellow urine is draining. NEURO: Alert and oriented, somewhat hard of hearing. Speech is clear. No facial droop. Obeys simple commands. Insight is okay. Moves extremities. EXTREMITIES: No edema, no erythema. Results & Data Results & Data ([facility]) Vital Signs (Past 12 Hours) Vital Signs Temp Pulse Pulse Resp BP Pulse Ox O2 Del Method 12/29/22 11:20 79 12/29/22 11:10 36.8 C 82 19 98/60 L 99 Room Air 12/29/22 08:07 36.7 C 101 H 18 93/58 L 99 Room Air 12/29/22 07:31 95 H Medications Administered Current Inpatient Medications Acetaminophen (Acetaminophen 325 Mg Tab) 650 mg PO Q4H PRN PRN Reason: Pain or Fever Stop: 01/15/23 00:02 Last Admin: 12/28/22 16:33 Dose: 650 mg Atenolol (Atenolol 25 Mg Tablet) 25 mg PO QAM [facility] Stop: 01/15/23 08:59 Last Admin: 12/29/22 08:43 Dose: 25 mg Azelastine HCl (Azelastine Hcl 0.1% Nasal 200 Sprays/27,400 Mcg Btl) 2 sprays NA BID PRN PRN Reason: Congestion Stop: 01/15/23 00:02 Calcium Carbonate (Calcium Carbonate 500 Mg Chewable Tab) 1,000 mg PO BID PRN PRN Reason: Indigestion Stop: 01/15/23 08:00 Last Admin: 12/19/22 21:40 Dose: 1,000 mg Cetirizine HCl (Cetirizine Hcl 10 Mg Tablet) 10 mg PO DAILY PRN PRN Reason: Allergy Symptoms Stop: 01/15/23 00:02 Last Admin: 12/29/22 08:44 Dose: 10 mg Dextrose (Dextrose 50% 50 Ml Syringe) 25 - 50 ml IV UD PRN; Protocol PRN Reason: Hypoglycemia Protocol Stop: 01/15/23 00:44 Last Admin: 12/16/22 03:06 Dose: 25 ml Diclofenac Sodium (Diclofenac Sod 1% Gel 100 Gm Tube) 4 gm EXT Q6 [facility]; Protocol Stop: 01/20/23 09:59 Last Admin: 12/29/22 12:26 Dose: 4 gm Famotidine (Famotidine 20 Mg Tab) 20 mg PO QAM [facility] Stop: 01/15/23 11:14 Last Admin: 12/29/22 08:45 Dose: 20 mg Glucagon (Glucagon For Inj 1 Mg Vial) 1 mg IM UD PRN; Protocol PRN Reason: Hypoglycemia Protocol Stop: 01/15/23 00:44 Glucose (Glucose 40% Gel 15 Gm Tube) 15 - 30 gm PO UD PRN; Protocol PRN Reason: Hypoglycemia Protocol Stop: 01/15/23 00:44 Glucose (Glucose 10 Tab/Tube) 4 - 8 tab PO UD PRN; Protocol PRN Reason: Hypoglycemia Protocol Stop: 01/15/23 00:44 Heparin Sodium (Porcine) (Heparin Sod 5,000 Unit/0.5 Ml Vial) 5,000 units SQ Q12 [facility] Stop: 01/15/23 08:59 Last Admin: 12/29/22 08:43 Dose: 5,000 units Hydroxyzine HCl (Hydroxyzine Hcl 25 Mg Tab) 25 mg PO TID PRN PRN Reason: Itching Stop: 01/15/23 00:02 Last Admin: 12/29/22 08:43 Dose: 25 mg Ibuprofen (Ibuprofen 200 Mg Tab) 200 mg PO Q6H PRN PRN Reason: ankle/toe pain Stop: 01/26/23 14:04 Last Admin: 12/27/22 23:30 Dose: 200 mg Insulin Aspart (Insulin Aspart Per Unit) 0 units SC ACHS [facility] Stop: 01/15/23 08:14 Last Admin: 12/29/22 12:25 Dose: 8 units Insulin Glargine (Lantus Per Unit Charge) 25 units SQ QAM [facility] Stop: 01/26/23 08:59 Last Admin: 12/29/22 08:46 Dose: 25 units Losartan Potassium (Losartan Potassium 25 Mg Tab) 25 mg PO QAM [facility] Stop: 01/15/23 08:59 Last Admin: 12/29/22 08:43 Dose: 25 mg Magnesium Oxide (Magnesium Oxide 400 Mg Tab) 400 mg PO QAM [facility] Stop: 01/22/23 10:29 Last Admin: 12/29/22 08:44 Dose: 400 mg Melatonin (Melatonin 3 Mg Tab) 3 mg PO HS [facility] Stop: 01/17/23 20:59 Last Admin: 12/28/22 20:05 Dose: 3 mg Miscellaneous (Carbohydrates For Hypoglycemia ) 15 - 30 gm PO UD PRN PRN Reason: Hypoglycemia Treatment Stop: 01/15/23 00:44 Miscellaneous Information (Pharmacy Glycemic Mgmt Consult) 1 each N/A UD PRN PRN Reason: Consult Stop: 01/15/23 00:02 Nitroglycerin (Nitroglycerin Sl 0.4 Mg/Tab Tab) 0.4 mg SL Q5M PRN PRN Reason: Chest Pain Stop: 01/15/23 00:02 Olanzapine (Olanzapine 2.5 Mg Tab) 2.5 mg PO HS PRN PRN Reason: agitation, confusion Stop: 01/17/23 20:59 Ondansetron HCl (Ondansetron Inj 2 Mg/Ml 2 Ml Vial) 4 mg IV Q6H PRN PRN Reason: Nausea Stop: 01/15/23 00:02 Polyethylene Glycol (Polyethylene (Miralax) 17 Gm Pack) 17 gm PO DAILY PRN PRN Reason: Constipation Stop: 01/15/23 00:02 Last Admin: 12/29/22 11:16 Dose: 17 gm Senna/Docusate Sodium (Docusate Sodium/Senna 50/8.6mg Tab) 1 tab PO QAM [facility] Stop: 01/19/23 19:44 Last Admin: 12/29/22 08:43 Dose: 1 tab Terazosin HCl (Terazosin Hcl 1 Mg Cap) 4 mg PO HS [facility] Stop: 01/15/23 20:59 Last Admin: 12/28/22 20:06 Dose: 4 mg Valacyclovir HCl (Valacyclovir Hcl 500 Mg Tablet) 1,000 mg PO BID [facility] Stop: 01/15/23 08:59 Last Admin: 12/29/22 08:42 Dose: 1,000 mg
[2022-12-29] MEDS: ACETAMINOPHEN 325 MG TAB PO PRN (20:18)
[2022-12-29] MEDS: MELATONIN 3 MG TAB PO SCH (20:19)
[2022-12-29] MEDS: TERAZOSIN HCL 1 MG CAP PO SCH (21:00)
[2022-12-30] MEDS: DICLOFENAC SOD 1% GEL 100 GM TUBE EXT SCH ×5 (00:48→23:18)
[2022-12-30] MEDS: INSULIN ASPART PER UNIT SC SCH ×4 (08:31→20:33)
[2022-12-30] MEDS: HEPARIN SOD 5,000 UNIT/0.5 ML VIAL SQ SCH ×2 (08:33→20:09)
[2022-12-30] MEDS ORDERED: IBUPROFEN 200 MG TAB PO PRN (09:10)
[2022-12-30] MEDS: MAGNESIUM OXIDE 400 MG TAB PO SCH (10:43)
[2022-12-30] MEDS: DOCUSATE SODIUM/SENNA 50/8.6MG TAB PO SCH ×2 (10:43→20:09)
[2022-12-30] MEDS: ATENOLOL 25 MG TABLET PO SCH (10:43)
[2022-12-30] MEDS: FAMOTIDINE 20 MG TAB PO SCH (10:44)
[2022-12-30] MEDS: LOSARTAN POTASSIUM 25 MG TAB PO SCH (10:44)
[2022-12-30] MEDS: valACYclovir HCL 500 MG TABLET PO SCH ×2 (10:44→20:08)
[2022-12-30] MEDS ORDERED: LIDOCAINE 5% OINT 30 GM TUBE EXT PRN (11:09)
[2022-12-30] MEDS ORDERED: LANTUS PER UNIT CHARGE SQ SCH (12:00)
--- NOTE | 2022-12-30 13:25 | Pharmacy Report ---
Pharmacy Glycemic Short Note 2 - Date of Service December 30, 2022 - Glycemic Short BSG Results (Last 24 hours): 12/29/22 12/29/22 12/30/22 16:43 20:21 07:26 POC Glucose 93 93 92 12/30/22 11:43 POC Glucose 113 H OUTPATIENT ANTIDIABETIC REGIMEN: * Metformin 1gm PO daily * empagliflozin 10mg PO daily HbA1C: 9.4% (12/15/22) ASSESSMENT: 12/30/22 * Patient's BSGs yesterday were [phone] mg/dL and patient received 41 units of insulin (25 units of basal and 16 units of bolus). * Fasting today is 92 mg/dL which is significantly decreased from yesterday. Held Lantus until lunch to ensure recovery of BSG. Reduced basal by half. * Continue Novolog. 12/28 * BSGs well controlled over last 24 hrs while tolerating a diet. * 40 units SQ insulin given over last 24 hrs * Fasting BSG at goal this AM with 25 units basal on board, will continue * Post-prandial BSGs controlled with current CF and CR, will continue 12/25: * BSGs [phone]/dL. Pt received 27 units of basal and 19 units of bolus insulin yesterday. * Continues on diet, other stressors stable. * Fasting BSG elevated this morning. Increase Lantus to 30 units daily, and tighten Novolog correction parameters slightly. 12/24: * Fasting improved from yesterday, still slightly above goal. Basal increased 2 units this AM. * Lunch BSG elevated, however, patient had late carbs that were covered @1029 and BSG @1129 * Will continue same novolog parameters as patient with good control over past 24 hours with current dosing PLAN FOR INPATIENT GLYCEMIC CONTROL: * Hold outpatient oral diabetes medications * Basal insulin * Lantus 10 units SQ qAM * Bolus insulin * NovoLog per scale ACHS or Q6hrs while NPO * Goal Range: Low 110 mg/dL - High 140 mg/dL * Correction Factor: 30 mg/dL/unit * Nutritional / Prandial insulin per carb ratio of 1 unit per 9 grams CHO consumed
[2022-12-30] MEDS ORDERED: HYDROCORTISONE ACETATE 25 MG SUPP PR PRN (13:33)
--- NOTE | 2022-12-30 14:43 | Hospitalist Progress Note ---
Date of Service December 30, 2022 Assessment & Plan (1) DM (diabetes mellitus): Plan Patient is an 87 yr male with H/O HLD, allergic rhinitis, gout, HTN, near syncope, bradycardia, RBBB, first-degree AV block, diverticulum of bladder, BPH, degenerative disc disease, bilateral SNHL, balance problems who was started on metformin/was diagnosed with diabetes a couple of months ago/did not tolerate/stopped taking and presented to PCP office 12/09 with increased thirst/urination/fogginess [OP chart reviewed on 12/16] and was prescribed jardiance on 12/09 (I called pharmacy 12/16-he filled it on 12/10). Noted to take it for 3 days [employer] per H and P note. Upon asking pt reports taking it for 2 weeks, which won't be possible as he filled it in 12/10. He presented to the ED 12/15 for feeling weak/tired/not being able to get up from the bed and walk because of weakness. He had an episode of nausea and vomiting the day of arrival to ED. He is being managed for the following: Generalized Weakness DKA Ambulatory dysfunction -COVID/flu/RSV negative. Admitting WBC at baseline. Admitting chest exam clear to auscultation. Admitting UA not suggestive of UTI. -CXR:No evidence of acute fracture or other acute abnormalities in the visualized portions of the chest. -CT head:No acute intracranial hemorrhage, no evidence of acute territorial infarction or other acute intracranial disease process. -HbA1C: 9.4 -Blood Culture: Negative to date -h/o intolerance to metformin -Jardiance discontinued due to UTIs IV insulin drip discontinued DKA resolved Prior hospitalist discussed with endocrinology: Recommends Lantus in a.m. on discharge Scheduled to follow-up with endocrinology as outpatient PT/OT: Likely will be denied for SNF per Case Mnagament Patient prefers to be discharged home with home health Acute kidney injury on CKD stage III: Cr back to baseline Avoid nephrotoxic agents as able Monitor renal function Hospital delirium: Psychiatry consulted recommended zyprexa PRN, c/ w melatonin Until status back to baseline Monitor Urinary retention UTI Urine culture growing E. coli Completed ciprofloxacin dose Appreciate urology input Voiding trial today Needs follow-up with urology upon discharge Osteoarthritis Tylenol or Voltaren gel PRN Other chronic conditions: Paroxysmal A-fib single event in 2015 when he was on a steroid for polymyalgia rheumatica. Continue to monitor. 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 DVT Px: Heparin SQ Code Status Full code Disposition Home with Home Health as per Patient/family wishes Admission and Anticipated Discharge Date Admission Date: December 15, 2022 Subjective Patient is seen and examined at bedside States having some pain at rectal region, also reports constipation Discussed with patient's at bedside Patient would not likely qualify for SNF per case management Patient's family prefers patient to be discharged home with home health Review of Systems Review of Systems: All systems reviewed & are unremarkable except as noted in Subjective Physical Exam Physical Exam: Physical Exam: Vitals signs as noted above General Appearance:Moderately built and nourished, no apparent distress Head: normocephalic, Atraumatic Eyes: normal inspection, EOMI Neck: supple, Trachea midline Respiratory/Chest: Normal breath sounds, CTA, No accessory muscle use Cardiovascular: S1, S2, No murmur Abdomen/GI:Soft, Non tender, Bowel sounds present Extremities/Musculoskeletal:normal inspection, no edema Neurologic/Psych:AAOX3, grossly no focal neurological deficits, mild hearing impairment Skin: normal color, warm Results & Data Results & Data ([facility]) Vital Signs (Past 12 Hours) Vital Signs Temp Pulse Pulse Resp BP Pulse Ox O2 Del Method 12/30/22 11:10 36.6 C 77 18 147/63 H 97 Room Air 12/30/22 10:09 Room Air 12/30/22 07:32 36.4 C L 81 18 120/61 92 Room Air 12/30/22 07:13 64 12/30/22 03:06 36.4 C L 58 L 16 133/66 98 Room Air
--- NOTE | 2022-12-30 17:22 | XRay Report ---
KUB HISTORY: Acute generalized abdominal pain with constipation constipation COMPARISON: CT abdomen and pelvis 11/20/2021 FINDINGS: Nonobstructive bowel gas pattern. Moderate rectal fecal retention. Limited study secondary to positioning. No renal calculi. No ureteral calculi. No pneumoperitoneum or pneumatosis. No fractur e. IMPRESSION: 1. Nonobstructive bowel gas pattern. 2. Moderate rectal fecal retention. ACT 112: Negative or not required by law. The above report was generated using voice recognition software. It may contain grammatical, syntax o r spelling errors. Electronically signed by: Pardeep Ovalle M.D. 12/30/2022 5:21 PM
[2022-12-30] MEDS ORDERED: bisacodyL 10 MG SUPP PR PRN (18:04)
[2022-12-30] MEDS: ACETAMINOPHEN 325 MG TAB PO PRN (20:07)
[2022-12-30] MEDS: hydrOXYzine HCl 25 MG TAB PO PRN (20:07)
[2022-12-30] MEDS: POLYETHYLENE (MIRALAX) 17 GM PACK PO PRN (20:08)
[2022-12-30] MEDS: TERAZOSIN HCL 1 MG CAP PO SCH (20:08)
[2022-12-30] MEDS: MELATONIN 3 MG TAB PO SCH (20:10)
[2022-12-31] MEDS: DICLOFENAC SOD 1% GEL 100 GM TUBE EXT SCH ×2 (05:54→12:21)
[2022-12-31 06:32] LABS: Basophils # (auto) 0.03 K/uL (0-0.2); Basophils % (auto) 0.8 %; Eosinophils % (auto) 2.5 %; Hematocrit (blood only) 35.1 % (42.0-52.0); Hemoglobin 12.8 g/dl (14.0-18.0); Immature Granulocytes # (auto) 0.01 K/uL (0.01-0.20); Immature Granulocytes % (auto) 0.3 %; Lymphocytes # (auto) 0.51 K/uL (1.2-3.4); Mean Corpuscular Hemoglobin 34.4 pg (25.0-34.0); Mean Corpuscular Hgb Conc 36.5 g/dL (32.0-36.0); Mean Corpuscular Volume 94.4 fL (80.0-100.0); Mean Platelet Volume 8.2 fL (9.4-12.4); Monocytes # (auto) 0.08 K/uL (0.11-0.59); Neutrophils % (auto) 81.4 %; Platelet Count 288 K/uL (130-400); RDW Coefficient of Variation 13.6 % (11.5-14.5); RDW Standard Deviation 47.1 fL (36.4-46.3); Red Blood Count 3.72 M/uL (4.70-6.10); White Blood Count 3.93 K/ul (4.8-10.8)
[2022-12-31] MEDS: ACETAMINOPHEN 325 MG TAB PO PRN (06:34)
[2022-12-31 07:27] LABS: BUN Creatinine Ratio 27.6 (10-20); Calcium 8.4 mg/dl (8.5-10.1); Est GFR (African American) 73.6 ml/min; Est GFR (Non-African American) 63.5 ml/min; Magnesium 1.9 mg/dl (1.7-2.4)
[2022-12-31] MEDS: ATENOLOL 25 MG TABLET PO SCH (08:10)
[2022-12-31] MEDS: valACYclovir HCL 500 MG TABLET PO SCH (08:23)
[2022-12-31] MEDS: DOCUSATE SODIUM/SENNA 50/8.6MG TAB PO SCH (08:23)
[2022-12-31] MEDS: HEPARIN SOD 5,000 UNIT/0.5 ML VIAL SQ SCH (08:25)
[2022-12-31] MEDS: CETIRIZINE HCL 10 MG TABLET PO PRN (08:26)
[2022-12-31] MEDS: MAGNESIUM OXIDE 400 MG TAB PO SCH (08:26)
[2022-12-31] MEDS: LOSARTAN POTASSIUM 25 MG TAB PO SCH (08:27)
[2022-12-31] MEDS: FAMOTIDINE 20 MG TAB PO SCH (08:27)
[2022-12-31] MEDS: INSULIN ASPART PER UNIT SC SCH ×2 (08:28→12:20)
[2022-12-31] MEDS ORDERED: LANTUS PER UNIT CHARGE SQ SCH (09:00)
--- NOTE | 2022-12-31 09:07 | Pharmacy Report ---
Pharmacy Glycemic Short Note 2 - Date of Service December 31, 2022 - Glycemic Short BSG Results (Last 24 hours): 12/30/22 12/30/22 12/30/22 11:43 16:22 20:05 Glucose POC Glucose 113 H 223 H 176 H 12/31/22 12/31/22 06:03 07:22 Glucose 146 H POC Glucose 161 H OUTPATIENT ANTIDIABETIC REGIMEN: * Metformin 1gm PO daily * empagliflozin 10mg PO daily HbA1C: 9.4% (12/15/22) ASSESSMENT: 12/31/22 * Juan received a total of 26 units of insulin yesterday (10 units Lantus + 16 units Novolog) with BSGs 92, 113, 223, 176 mg/dL. * Fasting BSG elevated today (161). Basal insulin was decreased by 60% yes terday. Patient previously tolerated 25 units x 3 consecutive days. Will increase to 18 units for today. 12/30/22 * Patient's BSGs yesterday were [phone] mg/dL and patient received 41 units of insulin (25 units of basal and 16 units of bolus). * Fasting today is 92 mg/dL which is significantly decreased from yesterday. Held Lantus until lunch to ensure recovery of BSG. Reduced basal by half. * Continue Novolog. 12/28 * BSGs well controlled over last 24 hrs while tolerating a diet. * 40 units SQ insulin given over last 24 hrs * Fasting BSG at goal this AM with 25 units basal on board, will continue * Post-prandial BSGs controlled with current CF and CR, will continue 12/25: * BSGs [phone]/dL. Pt received 27 units of basal and 19 units of bolus insulin yesterday. * Continues on diet, other stressors stable. * Fasting BSG elevated this morning. Increase Lantus to 30 units daily, and tighten Novolog correction parameters slightly. 12/24: * Fasting improved from yesterday, still slightly above goal. Basal increased 2 units this AM. * Lunch BSG elevated, however, patient had late carbs that were covered @1029 and BSG @1129 * Will continue same novolog parameters as patient with good control over past 24 hours with current dosing PLAN FOR INPATIENT GLYCEMIC CONTROL: * Hold outpatient oral diabetes medications * Basal insulin * Lantus 18 units SQ qAM * Bolus insulin * NovoLog per scale ACHS or Q6hrs while NPO * Goal Range: Low 110 mg/dL - High 140 mg/dL * Correction Factor: 30 mg/dL/unit * Nutritional / Prandial insulin per carb ratio of 1 unit per 9 grams CHO consumed
--- NOTE | 2022-12-31 14:23 | Hospitalist Progress Note ---
Date of Service December 31, 2022 Assessment & Plan (1) DM (diabetes mellitus): Plan Patient is an 87 yr male with H/O HLD, allergic rhinitis, gout, HTN, near syncope, bradycardia, RBBB, first-degree AV block, diverticulum of bladder, BPH, degenerative disc disease, bilateral SNHL, balance problems who was started on metformin/was diagnosed with diabetes a couple of months ago/did not tolerate/stopped taking and presented to PCP office 12/09 with increased thirst/urination/fogginess [OP chart reviewed on 12/16] and was prescribed jardiance on 12/09 (I called pharmacy 12/16-he filled it on 12/10). Noted to take it for 3 days [employer] WORK[employer] per H and P note. Upon asking pt reports taking it for 2 weeks, which won't be possible as he filled it in 12/10. He presented to the ED 12/15 for feeling weak/tired/not being able to get up from the bed and walk because of weakness. He had an episode of nausea and vomiting the day of arrival to ED. He is being managed for the following: Generalized Weakness DKA Ambulatory dysfunction -COVID/flu/RSV negative. Admitting WBC at baseline. Admitting chest exam clear to auscultation. Admitting UA not suggestive of UTI. -CXR:No evidence of acute fracture or other acute abnormalities in the visualized portions of the chest. -CT head:No acute intracranial hemorrhage, no evidence of acute territorial infarction or other acute intracranial disease process. -HbA1C: 9.4 -Blood Culture: Negative to date -h/o intolerance to metformin -Jardiance discontinued due to UTIs IV insulin drip discontinued DKA resolved Prior hospitalist discussed with endocrinology: Recommends Lantus in a.m. on discharge Scheduled to follow-up with endocrinology as outpatient PT/OT: Likely will be denied for SNF per Case Management Patient prefers to be discharged home with home health Plan to discharge home today Acute kidney injury on CKD stage III: Cr back to baseline Avoid nephrotoxic agents as able Monitor renal function Hospital delirium: Psychiatry consulted recommended zyprexa PRN, c/ w melatonin Mental status back to baseline Monitor Urinary retention UTI Urine culture growing E. coli Completed ciprofloxacin dose Appreciate urology input Failed Voiding trial Lopez replaced Needs follow-up with urology upon discharge Constipation KUB:Nonobstructive bowel gas pattern. Moderate rectal fecal retention. Continue bowel regimen Osteoarthritis Tylenol or Voltaren gel PRN Other chronic conditions: Paroxysmal A-fib single event in 2015 when he was on a steroid for polymyalgia rheumatica. Continue to monitor. 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 DVT Px: Heparin SQ Code Status Full code Disposition Home with Home Health as per Patient/family wishes Admission and Anticipated Discharge Date Admission Date: December 15, 2022 Subjective Patient is seen and examined at bedside No new complaints Had several small BMs overnight and this morning Still has some anal pain Denies any chest pain, dyspnea, dizziness, nausea, abd pain Review of Systems Review of Systems: All systems reviewed & are unremarkable except as noted in Subjective Physical Exam Physical Exam: Physical Exam: Vitals signs as noted above General Appearance:Moderately built and nourished, no apparent distress Head: normocephalic, Atraumatic Eyes: normal inspection, EOMI Neck: supple, Trachea midline Respiratory/Chest: Normal breath sounds, CTA, No accessory muscle use Cardiovascular: S1, S2, No murmur Abdomen/GI:Soft, Non tender, Bowel sounds present Extremities/Musculoskeletal:normal inspection, no edema Neurologic/Psych:AAOX3, grossly no focal neurological deficits, mild hearing impairment Skin: normal color, warm Results & Data Results & Data ([facility]) Vital Signs (Past 12 Hours) Vital Signs Temp Pulse Pulse Resp BP BP Pulse Ox 12/31/22 14:03 115/58 L 12/31/22 10:53 36.5 C 89 18 91/46 L 97 12/31/22 07:41 59 L 12/31/22 07:31 36.5 C 71 18 126/55 L 97 12/31/22 03:54 36.5 C 70 19 133/55 L 100 O2 Del Method 12/31/22 14:03 12/31/22 10:53 Room Air 12/31/22 07:41 12/31/22 07:31 Room Air 12/31/22 03:54 Room Air Laboratory Results Short CBC 12/31/22 Range/Units 06:03 WBC 3.93 L (4.8-10.8) K/ul Hgb 12.8 L (14.0-18.0) g/dl Hct 35.1 L (42.0-52.0) % Plt Count 288 (130-400) K/uL BMP 12/31/22 06:03 Sodium 136 Potassium 4.0 Chloride 106 Carbon Dioxide 24 BUN 29 H Creatinine 1.05 Glucose 146 H Calcium 8.4 L
--- NOTE | 2022-12-31 14:26 | Discharge Summary ---
Date of Service December 31, 2022 Admission HPI Per Admitting Provider CHIEF COMPLAINT: Weakness, nausea. HISTORY OF PRESENT ILLNESS: This is an 87-year-old male with past medical history significant for history of hyperlipidemia, allergic rhinitis, history of gout, hypertension, history of near syncope, history of bradycardia, right bundle-branch block, first-degree AV block, history of diverticulum of bladder, BPH, degenerative disk disease, bilateral sensorineural hearing loss, balance problems. The patient says that he was diagnosed with diabetes a couple of months ago, he was taking metformin, but it does not agree with him, he was not tolerating it well. So he stopped it and three days back, he was started on Jardiance. For the last two days, he is feeling very weak and tired, he was not even able to get up from the bed and walk because of weakness. He had one episode of nausea, vomiting yesterday. That is the reason he came here. He lives with his . Denies any chest pain or shortness of breath. He is complaining of some heartburn. Denies any headache. No blurred visions. Has some runny nose and sore throat. No cough, no fevers. Micturating fine. No swelling in the legs, hemodynamically stable. Admission Exam Per Admitting Provider PHYSICAL EXAMINATION: GENERAL: The patient is alert and oriented, not in acute distress. VITAL SIGNS: Temperature 36.6, pulse 81, respiratory rate 17, blood pressure 144/69, oxygen 99% on room air. HEENT: Pupils equal, round and reactive to light. Oral mucosa dry. NECK: No JVD, no neck masses. CARDIOVASCULAR: S1 and S2 heard. Regular rate and rhythm. No murmur, no gallop. RESPIRATORY SYSTEM: Normal AP diameter. No accessory muscle use. No wheezing, no crackles. ABDOMEN: Soft, bowel sounds present, nontender, no distention. CENTRAL NERVOUS SYSTEM: Alert and oriented, somewhat hard of hearing. Speech is clear. No facial droop. Obeys simple commands. Insight is okay. Moves extremities. EXTREMITIES: No edema, no erythema. Principal Diagnosis Generalized Weakness Diabetic ketoacidosis Ambulatory dysfunction Acute kidney injury--Resolved Delirium--Resolved Urinary retention Urinary tract infection Constipation Discharge Data Allergies Allergy/AdvReac Type Severity Reaction Status Date / Time Penicillins Allergy Severe HIVES Verified 12/15/22 19:42 Sulfa (Sulfonamide Allergy Severe RASH Verified 12/15/22 19:42 Antibiotics) tree and shrub pollen Allergy Unknown Verified 12/15/22 19:42 Consultations 12/15/22 20:24 ED Decision to Admit Stat 12/18/22 07:26 Consult Psychiatry Routine 12/18/22 09:15 Consult Urology Routine 12/25/22 08:16 Consult Cardiology Routine Procedures Performed Laboratory Results WBC 3.93 K/ul (4.8-10.8) L 12/31/22 06:03 RBC 3.72 M/uL (4.70-6.10) L 12/31/22 06:03 Hgb 12.8 g/dl (14.0-18.0) L 12/31/22 06:03 Hct 35.1 % (42.0-52.0) L 12/31/22 06:03 MCV 94.4 fL (80.0-100.0) 12/31/22 06:03 MCH 34.4 pg (25.0-34.0) H 12/31/22 06:03 MCHC 36.5 g/dL (32.0-36.0) H 12/31/22 06:03 RDW Std Deviation 47.1 fL (36.4-46.3) H 12/31/22 06:03 RDW Coeff of Nam 13.6 % (11.5-14.5) 12/31/22 06:03 Plt Count 288 K/uL (130-400) 12/31/22 06:03 MPV 8.2 fL (9.4-12.4) L 12/31/22 06:03 Immature Gran % (Auto) 0.3 % 12/31/22 06:03 Neut % (Auto) 81.4 % 12/31/22 06:03 Lymph % (Auto) 13.0 % 12/31/22 06:03 [place] % (Auto) 2.0 % 12/31/22 06:03 Eos % (Auto) 2.5 % 12/31/22 06:03 Baso % (Auto) 0.8 % 12/31/22 06:03 Neut # (Auto) 3.20 K/uL (1.40-6.50) 12/31/22 06:03 Lymph # (Auto) 0.51 K/uL (1.2-3.4) L 12/31/22 06:03 [place] # (Auto) 0.08 K/uL (0.11-0.59) L 12/31/22 06:03 Eos # (Auto) 0.10 K/uL (0-0.50) 12/31/22 06:03 Baso # (Auto) 0.03 K/uL (0-0.2) 12/31/22 06:03 Immature Gran # (Auto) 0.01 K/uL (0.01-0.20) 12/31/22 06:03 VBG pH 7.39 (7.36-7.41) 12/16/22 11:44 VBG pCO2 40 mmHg (38-50) 12/15/22 18:57 VBG pO2 39 mmHg 12/15/22 18:57 VBG HCO3 19 mmol/L 12/15/22 18:57 VBG O2 Saturation 60.8 % 12/15/22 18:57 VBG Base Excess -7.5 mEq/L 12/15/22 18:57 Sodium 136 mmol/L (136-145) 12/31/22 06:03 Potassium 4.0 mmol/L (3.5-5.1) 12/31/22 06:03 Chloride 106 mmol/L (98-107) 12/31/22 06:03 Carbon Dioxide 24 mmol/L (21-32) 12/31/22 06:03 Anion Gap 6 (3-11) 12/31/22 06:03 BUN 29 mg/dl (6-23) H 12/31/22 06:03 Creatinine 1.05 mg/dl (0.6-1.4) 12/31/22 06:03 Est Cr Clr Drug Dosing 48.0 ml/min 12/31/22 06:03 Est GFR ( Amer) 73.6 ml/min 12/31/22 06:03 Est GFR (Non-Af Amer) 63.5 ml/min 12/31/22 06:03 BUN/Creatinine Ratio 27.6 (10-20) H 12/31/22 06:03 Glucose 146 mg/dl (70-99(Fasting)) H 12/31/22 06:03 POC Glucose 149 mg/dl (70-99) H 12/31/22 11:15 Estimat Average Glucose 223 mg/dl 12/15/22 18:50 Hemoglobin A1c 9.4 % (4.5-5.6) H 12/15/22 18:50 Calcium 8.4 mg/dl (8.5-10.1) L 12/31/22 06:03 Phosphorus 3.6 mg/dl (2.5-4.9) 12/26/22 09:09 Magnesium 1.9 mg/dl (1.7-2.4) 12/31/22 06:03 Total Bilirubin 1.3 mg/dl (0.2-1.0) H 12/15/22 18:15 AST 15 U/L (13-39) 12/15/22 18:15 ALT 18 U/L (7-52) 12/15/22 18:15 Alkaline Phosphatase 96 U/L (34-104) 12/15/22 18:15 Total Protein 7.0 gm/dl (6.0-8.3) 12/15/22 18:15 Albumin 4.7 gm/dl (3.4-5.0) 12/15/22 18:15 Globulin 2.3 gm/dl (2.5-4.0) L 12/15/22 18:15 Albumin/Globulin Ratio 2.0 (0.9-2) 12/15/22 18:15 Urine Color Yellow 12/23/22 Unknown Urine Appearance Clear (Clear) 12/23/22 Unknown Urine pH 5.5 (4.5-7.5) 12/23/22 Unknown Ur Specific [place] 1.014 (1.000-1.030) 12/23/22 Unknown Urine Protein Trace (Negative) H 12/23/22 Unknown Urine Glucose (UA) Trace (Negative) H 12/23/22 Unknown Urine Ketones Negative (Negative) 12/23/22 Unknown Urine Blood 2+ (Negative) H 12/23/22 Unknown Urine Nitrite Negative (Negative) 12/23/22 Unknown Urine Bilirubin Negative (Negative) 12/23/22 Unknown Urine Urobilinogen Negative (Negative) 12/23/22 Unknown Ur Leukocyte Esterase Trace (Negative) H 12/23/22 Unknown Urine WBC (Auto) 1-5 /hpf (0-5) 12/23/22 Unknown Urine RBC (Auto) 5-10 /hpf (0-4) H 12/23/22 Unknown U Hyaline Cast (Auto) 1-5 /lpf (0-5) 12/23/22 Unknown U Epithel Cells (Auto) 10-20 /lpf (0-5) H 12/23/22 Unknown Urine Bacteria (Auto) Negative (Negative) 12/23/22 Unknown SARS-CoV-2 (PCR) NEGATIVE (Negative) 12/15/22 Unknown Influenza Type A (PCR) Negative (Neg) 12/15/22 Unknown Influenza Type B (PCR) Negative (Neg) 12/15/22 Unknown RSV (RT-PCR) Negative (Neg) 12/15/22 Unknown Impressions Ankle X-Ray 12/21/22 09:52 XR ankle LT 2V CLINICAL HISTORY: Left ankle pain. COMPARISON: None FINDINGS: Alignment of the left ankle is anatomic. There is no acute fracture. Calcifications adjacent to the posterior and plantar aspects of the left calcaneus are noted. There is minimal spurring. Talar dome is intact. IMPRESSION: No fracture or dislocation within the left ankle. ACT 112: Negative or not required by law. Electronically signed by: Nick Ruby M.D. 12/21/2022 1:18 PM KUB X-Ray 12/30/22 15:59 KUB HISTORY: Acute generalized abdominal pain with constipation constipation COMPARISON: CT abdomen and pelvis 11/20/2021 FINDINGS: Nonobstructive bowel gas pattern. Moderate rectal fecal retention. Limited study secondary to positioning. No renal calculi. No ureteral calculi. No pneumoperitoneum or pneumatosis. No fracture. IMPRESSION: 1. Nonobstructive bowel gas pattern. 2. Moderate rectal fecal retention. ACT 112: Negative or not required by law. The above report was generated using voice recognition software. It may contain grammatical, syntax or spelling errors. Electronically signed by: Pardeep Ovalle M.D. 12/30/2022 5:21 PM Diabetes Follow up Diabetes Follow-up Needed for HgbA1c >9% Hospital Course (1) DM (diabetes mellitus): Plan Patient is an 87 yr male with H/O HLD, allergic rhinitis, gout, HTN, near syncope, bradycardia, RBBB, first-degree AV block, diverticulum of bladder, BPH, degenerative disc disease, bilateral SNHL, balance problems who was started on metformin/was diagnosed with diabetes a couple of months ago/did not tolerate/stopped taking and presented to PCP office 12/09 with increased thirst/urination/fogginess [OP chart reviewed on 12/16] and was prescribed jardiance on 12/09 (I called pharmacy 12/16-he filled it on 12/10). Noted to take it for 3 days [employer] per H and P note. Upon asking pt reports taking it for 2 weeks, which won't be possible as he filled it in 12/10. He presented to the ED 12/15 for feeling weak/tired/not being able to get up from the bed and walk because of weakness. He had an episode of nausea and vomiting the day of arrival to ED. He is being managed for the following: Generalized Weakness DKA Ambulatory dysfunction -COVID/flu/RSV negative. Admitting WBC at baseline. Admitting chest exam clear to auscultation. Admitting UA not suggestive of UTI. -CXR:No evidence of acute fracture or other acute abnormalities in the visualized portions of the chest. -CT head:No acute intracranial hemorrhage, no evidence of acute territorial infarction or other acute intracranial disease process. -HbA1C: 9.4 -Blood Culture: Negative to date -h/o intolerance to metformin -Jardiance discontinued due to UTIs IV insulin drip discontinued DKA resolved Prior hospitalist discussed with endocrinology: Recommends Lantus in a.m. on discharge Scheduled to follow-up with endocrinology as outpatient PT/OT: Likely will be denied for SNF per Case Management Patient prefers to be discharged home with home health Plan to discharge home today Acute kidney injury on CKD stage III: Cr back to baseline Avoid nephrotoxic agents as able Monitor renal function Hospital delirium: Psychiatry consulted recommended zyprexa PRN, c/ w melatonin Mental status back to baseline Monitor Urinary retention UTI Urine culture growing E. coli Completed ciprofloxacin dose Appreciate urology input Failed Voiding trial Lopez replaced Needs follow-up with urology upon discharge Constipation KUB:Nonobstructive bowel gas pattern. Moderate rectal fecal retention. Continue bowel regimen Osteoarthritis Tylenol or Voltaren gel PRN Other chronic conditions: Paroxysmal A-fib single event in 2015 when he was on a steroid for polymyalgia rheumatica. Continue to monitor. 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 DVT Px: Heparin SQ Code Status Full code Disposition Home with Home Health as per Patient/family wishes Total Time Total Time Spent Total Time Spent (In Minutes): 58 minutes Discharge Plan Discharge Items Patient Disposition: Home - Home Health Services Reason For Visit: WEAKNESS Discharge Diagnosis: Generalized Weakness Diabetic ketoacidosis Ambulatory dysfunction Acute kidney injury--Resolved Delirium--Resolved Urinary retention Urinary tract infection Constipation Activity: Per Instructions section Exercise/Sports: Gradually increase as tolerated Non-emergency contact: Primary Care Provider and Urologist Call non-emergency contact if: you have any medication questions, your symptoms worsen, your pain is concerning for you and you have a fever Follow-up/Referrals: Connor Alcala PA-C [Physician Fire Information Officer] - 02/22/23 12:45 pm Awilda Baron DO [Primary Care Provider] - (Date & Time 01/05/2023 3:00 PM Provider Awilda Baron DO Department [facility] ) Diet: Carb Consistent or DM2 Addtl Attending Provider Instructions: Follow-up with your primary care physician Dr. Anguiano in 1 week as advised Follow-up with your twisting frame changer Connor Alcala PA-C on 12/18/22 at 2:00PM as scheduled Follow-up with your urologist Dr. Yousif in 1 week for further management of urinary retention. --Continue Lopez Catheter for now until follow up with your Urologist. Seek immediate medical attention if your symptoms reoccur or worsen Please take all medications as instructed on discharge list below. Please call if you have any questions or problems. You can reach a [facility] hospitalist on duty at [facility] 24 hours a day by calling [phone] Pending Studies at Discharge: No Stand-Alone Forms: My [facility] [employer], Smoking Cessation Medications and DC Order Prescriptions: New polyethylene glycol 3350 [Miralax] 17 gram Powder In Packet 17 g PO DAILY PRN (Reason: constipation) Qty: 30 0RF diclofenac sodium [Voltaren Arthritis Pain] 1 % Gel 4 g EXT Q6 PRN (Reason: Pain) Qty: 1 0RF melatonin 3 mg Tablet 3 mg PO HS Qty: 10 0RF docusate sodium [Colace] 100 mg capsule 100 mg PO BID PRN (Reason: constipation) Qty: 60 0RF insulin glargine [Lantus Solostar U-100 Insulin] 100 unit/mL (3 mL) insulin pen 15 unit subcut DAILY Qty: 15 1RF (DME) needle (disp) 32 gauge 32 gauge x 5/16" needle See Rx Instructions .Route Qty: 100 0RF Rx Instructions: As directed (DME) FreeStyle [place] 2 Sensor Kit See Rx Instructions .Route Qty: 2 0RF Rx Instructions: As directed (DME) FreeStyle [place] 2 [place] Misc See Rx Instructions .Route Qty: 1 0RF Rx Instructions: As directed Continued cetirizine 10 mg Tablet 10 mg PO DAILY PRN (Reason: Allergy Symptoms) losartan 25 mg tablet 25 mg PO QAM flecainide 100 mg tablet 100 mg PO Q2D PRN (Reason: Cardiac Arrhythmia) azelastine 137 mcg (0.1 %) aerosol,spray 2 spray intranasal BID PRN (Reason: Congestion) atenolol 25 mg tablet 25 mg PO QAM valacyclovir 1 gram tablet 1,000 mg PO BID ketoconazole 2 % shampoo 1 applic TOPICAL .Q3DAYS Rx Instructions: START 12/09/2022 terazosin 2 mg capsule 4 mg PO HS hydroxyzine HCl 25 mg tablet 25 mg PO TID PRN (Reason: Itching) Discontinued metformin 500 mg tablet extended release 24 hr 1,000 tab PO QAM naproxen sodium [Aleve] 220 mg Tablet 220 mg PO Q12H PRN (Reason: Pain) Jardiance 10 mg tablet 10 mg PO DAILY Discharge Orders: Discharge Order (Routine); Ordered 12/31/22 Ordered By: Paulo Menezes Admission Data Admit Date/Time: 12/15/22 21:37 Attending Provider: Paulo Menezes Admit Provider: David Cardona Primary Care Provider: Awilda Baron Other Providers: Swetha Morataya [place] ; [facility] ; Keith Page ; David Cardona ; Sugey Monteiro ; Kassandra Cross ; Aneesh Contreras ; Andre Garza ; [facility],Home Healthcare
== END 2022-12-31 16:08 | disposition home health service (06) | DRG 638 ==
LOC: ED 15:44 → 2E 21:37 → SUATTDRO 21:37 → 2E 22:45 → 2N 12-29 10:57

== ENCOUNTER 2023-01-21 14:34 | Inpatient (IN) ==
[2023-01-21] MEDS ORDERED: SODIUM CHLORIDE 0.9% 1000ML 1,000 ML IV ONE (15:07)
--- NOTE | 2023-01-21 15:13 | Emergency Department Note ---
Impression & Plan Severe neutropenia, Acute hyperglycemia, Acute hypotension ED Provider Note NAME: THIAGO KAUFMAN AGE: 87 SEX: M : 1935 ARRIVES VIA: Ambulance INFORMANT: Patient ED PROVIDER(S): Alexx Mcgowan DO CHIEF COMPLAINT: weakness, hypotension HPI: Patient is an 87-year-old male with past medical history of DKA, diabetes, hypertension, who presents to the ER as he was at urology's office and found to be hypotensive with systolics in the 60s to 80s. They remove the Lopez and became very shaky weak and consequently he was brought in. He denies any headache or change in vision. No chest pain or shortness of breath. No nausea, vomiting, or diarrhea. No dysuria, urgency, or frequency. No other exacerbating or remitting factors. PAST MEDICAL HISTORY:See Below PAST SURGICAL HISTORY:See Below FAMILY HISTORY:See Below SOCIAL HISTORY:See Below HOME MEDICATIONS:See Below ALLERGIES:See Below VITALS:See Below PHYSICAL EXAMINATION: GENERAL: Sitting up in bed, alert, well appearing, well nourished, no distress, non-toxic EYE EXAM: normal conjunctiva. PERRL and EOM's grossly intact. OROPHARYNX:mucous membranes are dry NECK: supple, no nuchal rigidity, no adenopathy, non-tender LUNGS: Clear to auscultation. Normal chest wall mechanics HEART: no murmurs, S1 normal and S2 normal ABDOMEN: abdomen soft, non-tender, normo-active bowel sounds, no masses, no rebound or guarding. UPPER EXTREMITIES: upper extremities are grossly normal. LOWER EXTREMITIES: No pitting edema. NEURO EXAM: Normal sensorium, cranial nerves II-XII intact, normal speech, no weakness of arms, no weakness of legs. No drift. Finger to nose intact. Gross sensation intact. MEDICAL DECISION MAKING: Patient is a 87-year-old male who presents ER for above-stated complaint. External records were reviewed. IV was established. Blood work was obtained. Labs show a severe neutropenia 0.48. Leukopenia 0.94. No significant anemia. BMP is unremarkable with the exception of a glucose at 334. This did trend down with IV fluids. He was given IV insulin. Lactate at 1.4. LFTs were unrema rkable. Troponin was negative. COVID-negative. Lipase negative. Chest x-ray was clean. He has no other complaints at this time. He was given IV fluids. He received a liter prior to arrival and when he arrived to the ER systolics were in the 80s. He received an additional liter and blood pressures trended up to the low 100s. He was updated at bedside. He was covered with antibiotics with the severe neutropenia and hypotension prior to arrival and just after arrival. He was discussed with the hospitalist admitted for further work-up. Triage Nursing notes reviewed. Limited review of prior medical records performed Vital Signs: reviewed and remarkable for hypotension Differential diagnosis: Infection, dehydration, metabolic abnormality, hypo/hyperglycemia, electrolyte disturbance, anemia, hypoxia, cardiac sources, intracerebral event, toxicologic, neurologic, as well as other pathologies. ER treatment provided: See below Diagnostics interpreted by me include EKG and cardiac monitoring as listed below: -Cardiac Monitoring: An order was placed for continuous cardiac monitoring. The monitor shows a rate of 80 with sinus rhythm. -ECG: Sinus rhythm rate 81 First-degree AV block Normal axis Septal Q waves QTc 462 Right bundle branch block -Laboratory studies:Interpreted by me as stated above in MDM and shown below. 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) Diverticulitis (07/23/14) Diverticulitis DM (diabetes mellitus) DVT (deep venous thrombosis) H/O prostatitis HTN (hypertension) Incomplete emptying of bladder (11/03/14) Left leg DVT Postoperative urethral stricture Sensorineural hearing loss of both ears Urinary retention UTI (lower urinary tract infection) UTI (lower urinary tract infection) Surgical History History of back surgery History of knee surgery History of surgery Stomach, skin S/P TURP Family History Other Family history non-contributory Heart disease No family history of adverse response to anesthesia No family history of bleeding disorder Denies family history of Ovarian cancer Prostate cancer Myocardial infarction Breast cancer Colorectal cancer Social History Smoking Status: Former smoker Second Hand Exposure: No; Hx Alcohol Use: No Hx Substance Use: No Preferred Language: [place] Irish Communication Ability: Effective Visual Impairment: No Limitations Hearing Ability: Hard of Hearing Applied Behavior Science Specialist Required: No Beliefs That Will Affect Care: None marital status: Current Living Situation: Spouse current occupational status: retired How many Children do You have: 3 Feels Safe at Home: Yes Childhood Exposure to Second-Hand Smoke: No Dental Care, Regularly: Yes Physical Activity Frequency: 3-4 Times per Week Seatbelt Use: always Sunscreen Use: No Assistive Devices: Cane Allergies Allergies Allergy/AdvReac Type Severity Reaction Status Date / Time Penicillins Allergy Intermediate HIVES Verified 01/21/23 17:45 Sulfa (Sulfonamide Allergy Intermediate RASH Verified 01/21/23 17:45 Antibiotics) tree and shrub pollen Allergy Intermediate CONGESTION Verified 01/21/23 17:45 Home Meds Home Medications Medication Instructions Recorded Confirmed azelastine 137 mcg (0.1 %) nasal 2 spray intranasal BID PRN 07/10/19 01/21/23 spray aerosol Congestion atenolol 25 mg tablet 25 mg PO QAM 11/20/21 01/21/23 valacyclovir 1 gram tablet 1,000 mg PO BID 11/20/21 01/21/23 hydroxyzine HCl 25 mg tablet 25 mg PO TID PRN Itching 12/15/22 01/21/23 terazosin 2 mg capsule 2 mg PO HS 12/15/22 01/21/23 loratadine 10 mg tablet (Claritin) 10 mg PO DAILY 01/21/23 01/21/23 naproxen sodium 220 mg tablet 220 mg PO BID PRN Pain 01/21/23 01/21/23 (Aleve) Previous Rx's Medication Instructions Recorded diclofenac sodium 1 % topical gel 4 g EXT Q6 PRN Pain #1 tube 12/30/22 (Voltaren Arthritis Pain) docusate sodium 100 mg capsule 100 mg PO BID PRN constipation #60 12/30/22 (Colace) caps flash glucose scanning reader #1 ea 12/30/22 (FreeStyle Clementine 2 [place]) flash glucose sensor (FreeStyle #2 ea 12/30/22 Clementine 2 Sensor kit) insulin glargine 100 unit/mL (3 15 unit (0.15 mL) subcut DAILY #15 12/30/22 mL) subcutaneous pen (Lantus mL Solostar U-100 Insulin) melatonin 3 mg tablet 3 mg PO HS #10 tabs 12/30/22 needle (disp) 32 gauge 32 gauge x #100 ea 12/30/22 5/16" polyethylene glycol 3350 17 gram 17 g PO DAILY PRN constipation #30 12/30/22 oral powder packet (Miralax) ea Results & Data (ED) Vital Signs Vital Signs - 24 hr 01/21/23 14:39 01/21/23 14:39 01/21/23 14:46 Temperature 36.6 C Temperature Source Temporal Artery Scan Pulse Rate 78 81 Pulse Rate [Finger] Pulse Rate from SpO2 Sensor Respiratory Rate 16 16 Blood Pressure 92/52 L Blood Pressure [Left Arm] Blood Pressure Mean 65 Blood Pressure Mean [Left Arm] Pulse Oximetry 96 Oxygen Delivery Method Room Air Sepsis Recent Fever Within 48 Hours No Sepsis New/Unexplained Change in Mental Status N/A Sepsis Action Taken by Nursing No Action Required 01/21/23 15:00 01/21/23 16:30 01/21/23 18:11 Temperature Temperature Source Pulse Rate 86 80 100 H Pulse Rate [Finger] Pulse Rate from SpO2 Sensor 86 76 Respiratory Rate 21 20 16 Blood Pressure 114/49 L 113/53 L 115/59 L Blood Pressure [Left Arm] Blood Pressure Mean 70 73 77 Blood Pressure Mean [Left Arm] Pulse Oximetry 97 98 99 Oxygen Delivery Method Sepsis Recent Fever Within 48 Hours Sepsis New/Unexplained Change in Mental Status Sepsis Action Taken by Nursing 01/21/23 19:30 01/21/23 19:45 01/21/23 20:54 Temperature Temperature Source Pulse Rate 92 H 96 H Pulse Rate [Finger] 91 H Pulse Rate from SpO2 Sensor Respiratory Rate 18 18 Blood Pressure Blood Pressure [Left Arm] 109/65 Blood Pressure Mean Blood Pressure Mean [Left Arm] 79 Pulse Oximetry 95 98 Oxygen Delivery Method Sepsis Recent Fever Within 48 Hours Sepsis New/Unexplained Change in Mental Status Sepsis Action Taken by Nursing Laboratory Data 01/21/23 14:44 01/21/23 14:44 Lab Results 03/01/21/23 01/21/23 Range/Units 14:44 14:44 14:44 WBC 0.94 L* (4.8-10.8) K/ul RBC 3.70 L (4.70-6.10) M/uL Hgb 12.7 L (14.0-18.0) g/dl POC Hgb (14.0-18.0) g/dl Hct 35.4 L (42.0-52.0) % POC Hct (42-52) % MCV 95.7 (80.0-100.0) fL MCH 34.3 H (25.0-34.0) pg MCHC 35.9 (32.0-36.0) g/dL RDW Std Deviation 45.9 (36.4-46.3) fL RDW Coeff of Nam 13.2 (11.5-14.5) % Plt Count 213 (130-400) K/uL MPV 8.7 L (9.4-12.4) fL Neutrophils % (Manual) 51 % Lymphocytes % (Manual) 30 % Reactive Lymphs % (Man) 12 % Monocytes % (Manual) 1 % Eosinophils % (Manual) 6 % Basophils % (Manual) 1 % Neutrophils # (Manual) 0.48 L (1.40-6.50) K/uL Total Absolute Neuts 0.48 L* (1.4-6.5) K/uL Lymphocytes # (Manual) 0.28 L (1.2-3.4) K/uL Reactive Lymphs # 0.11 K/uL Total Abs Lymphocytes 0.39 L (1.2-3.4) K/uL Monocytes # (Manual) 0.01 L (0.11-0.59) K/uL Eosinophils # (Manual) 0.06 (0-0.50) K/uL Basophils # (Manual) 0.01 (0-0.2) K/uL Echinocytes 2+ Peripher Smr Path Cons Cancelled POC Sodium (135-144) mmol/L Sodium 136 (136-145) mmol/L POC Potassium (3.3-5.0) mmol/L Potassium 3.5 (3.5-5.1) mmol/L POC Chloride (101-112) mmol/L Chloride 104 (98-107) mmol/L Carbon Dioxide 23 (21-32) mmol/L POC Total CO2 (24-31) mmol/L Anion Gap 9 (3-11) POC Anion Gap (16-25) mmol/L POC BUN (7-18) mg/dl BUN 23 (6-23) mg/dl Creatinine 1.09 (0.6-1.4) mg/dl POC Creatinine (0.6-1.3) mg/dl Est Cr Clr Drug Dosing 40.3 ml/min Est GFR ( Amer) 70.4 ml/min Est GFR (Non-Af Amer) 60.7 ml/min BUN/Creatinine Ratio 21.1 H (10-20) Glucose 334 H* (70-99(Fasting)) mg/dl POC Glucose (70-99) mg/dl POC Glucose (other) (70-99) mg/dl Lactate (0.4-2.0) mmol/L Calcium 7.9 L (8.6-10.3) mg/dl POC Ioniz Calcium Gavi (1.12-1.32) mmol/l Total Bilirubin 1.1 H (0.2-1.0) mg/dl AST 14 (13-39) U/L ALT 13 (7-52) U/L Alkaline Phosphatase 78 (34-104) U/L Troponin I High Sens 12.2 (0-20) pg/ml Total Protein 4.9 L (6.0-8.3) gm/dl Albumin 3.0 L (3.4-5.0) gm/dl Globulin 1.9 L (2.5-4.0) gm/dl Albumin/Globulin Ratio 1.6 (0.9-2) Lipase 41 (11-82) U/L SARS-CoV-2, RNA, NAAT (NEGATIVE) 01/21/23 01/21/23 01/21/23 Range/Units 15:13 15:15 15:21 WBC (4.8-10.8) K/ul RBC (4.70-6.10) M/uL Hgb (14.0-18.0) g/dl POC Hgb 11.2 L (14.0-18.0) g/dl Hct (42.0-52.0) % POC Hct 33 L (42-52) % MCV (80.0-100.0) fL MCH (25.0-34.0) pg MCHC (32.0-36.0) g/dL RDW Std Deviation (36.4-46.3) fL RDW Coeff of Nam (11.5-14.5) % Plt Count (130-400) K/uL MPV (9.4-12.4) fL Neutrophils % (Manual) % Lymphocytes % (Manual) % Reactive Lymphs % (Man) % Monocytes % (Manual) % Eosinophils % (Manual) % Basophils % (Manual) % Neutrophils # (Manual) (1.40-6.50) K/uL Total Absolute Neuts (1.4-6.5) K/uL Lymphocytes # (Manual) (1.2-3.4) K/uL Reactive Lymphs # K/uL Total Abs Lymphocytes (1.2-3.4) K/uL Monocytes # (Manual) (0.11-0.59) K/uL Eosinophils # (Manual) (0-0.50) K/uL Basophils # (Manual) (0-0.2) K/uL Echinocytes Peripher Smr Path Cons POC Sodium 137 (135-144) mmol/L Sodium (136-145) mmol/L POC Potassium 3.4 (3.3-5.0) mmol/L Potassium (3.5-5.1) mmol/L POC Chloride 100 L (101-112) mmol/L Chloride (98-107) mmol/L Carbon Dioxide (21-32) mmol/L POC Total CO2 22 L (24-31) mmol/L Anion Gap (3-11) POC Anion Gap 20.0 (16-25) mmol/L POC BUN 21 H (7-18) mg/dl BUN (6-23) mg/dl Creatinine (0.6-1.4) mg/dl POC Creatinine 1.0 (0.6-1.3) mg/dl Est Cr Clr Drug Dosing ml/min Est GFR ( Amer) ml/min Est GFR (Non-Af Amer) ml/min BUN/Creatinine Ratio (10-20) Glucose (70-99(Fasting)) mg/dl POC Glucose 296 H (70-99) mg/dl POC Glucose (other) 310 H (70-99) mg/dl Lactate (0.4-2.0) mmol/L Calcium (8.6-10.3) mg/dl POC Ioniz Calcium Gavi 1.13 (1.12-1.32) mmol/l Total Bilirubin (0.2-1.0) mg/dl AST (13-39) U/L ALT (7-52) U/L Alkaline Phosphatase (34-104) U/L Troponin I High Sens (0-20) pg/ml Total Protein (6.0-8.3) gm/dl Albumin (3.4-5.0) gm/dl Globulin (2.5-4.0) gm/dl Albumin/Globulin Ratio (0.9-2) Lipase (11-82) U/L SARS-CoV-2, RNA, NAAT NEGATIVE (NEGATIVE) 01/21/23 01/21/23 Range/Units 18:11 18:52 WBC (4.8-10.8) K/ul RBC (4.70-6.10) M/uL Hgb (14.0-18.0) g/dl POC Hgb (14.0-18.0) g/dl Hct (42.0-52.0) % POC Hct (42-52) % MCV (80.0-100.0) fL MCH (25.0-34.0) pg MCHC (32.0-36.0) g/dL RDW Std Deviation (36.4-46.3) fL RDW Coeff of Nam (11.5-14.5) % Plt Count (130-400) K/uL MPV (9.4-12.4) fL Neutrophils % (Manual) % Lymphocytes % (Manual) % Reactive Lymphs % (Man) % Monocytes % (Manual) % Eosinophils % (Manual) % Basophils % (Manual) % Neutrophils # (Manual) (1.40-6.50) K/uL Total Absolute Neuts (1.4-6.5) K/uL Lymphocytes # (Manual) (1.2-3.4) K/uL Reactive Lymphs # K/uL Total Abs Lymphocytes (1.2-3.4) K/uL Monocytes # (Manual) (0.11-0.59) K/uL Eosinophils # (Manual) (0-0.50) K/uL Basophils # (Manual) (0-0.2) K/uL Echinocytes Peripher Smr Path Cons POC Sodium (135-144) mmol/L Sodium (136-145) mmol/L POC Potassium (3.3-5.0) mmol/L Potassium (3.5-5.1) mmol/L POC Chloride (101-112) mmol/L Chloride (98-107) mmol/L Carbon Dioxide (21-32) mmol/L POC Total CO2 (24-31) mmol/L Anion Gap (3-11) POC Anion Gap (16-25) mmol/L POC BUN (7-18) mg/dl BUN (6-23) mg/dl Creatinine (0.6-1.4) mg/dl POC Creatinine (0.6-1.3) mg/dl Est Cr Clr Drug Dosing ml/min Est GFR ( Amer) ml/min Est GFR (Non-Af Amer) ml/min BUN/Creatinine Ratio (10-20) Glucose (70-99(Fasting)) mg/dl POC Glucose 265 H (70-99) mg/dl POC Glucose (other) (70-99) mg/dl Lactate 1.4 (0.4-2.0) mmol/L Calcium (8.6-10.3) mg/dl POC Ioniz Calcium Gavi (1.12-1.32) mmol/l Total Bilirubin (0.2-1.0) mg/dl AST (13-39) U/L ALT (7-52) U/L Alkaline Phosphatase (34-104) U/L Troponin I High Sens (0-20) pg/ml Total Protein (6.0-8.3) gm/dl Albumin (3.4-5.0) gm/dl Globulin (2.5-4.0) gm/dl Albumin/Globulin Ratio (0.9-2) Lipase (11-82) U/L SARS-CoV-2, RNA, NAAT (NEGATIVE) Administered Medications Discontinued Medications Sodium Chloride (Nss 1000ml) 1,000 mls @ 999 mls/hr IV .Q1H1M ONE Stop: 01/21/23 16:07 Last Infusion: 01/21/23 17:24 Dose: 0 mls/hr Documented By: Admin: 01/21/23 15:51 Dose: 999 mls/hr Documented By: HEATH Cefepime HCl (Maxipime) 2,000 mg in 20 mls @ 5 mls/min IV NOW STA; Protocol Stop: 01/21/23 16:50 Last Admin: 01/21/23 18:31 Dose: 5 mls/min Documented By: HEATH Calcium Gluconate () 1,000 mg in 60 mls @ 240 mls/hr IV NOW STA Stop: 01/21/23 19:30 Last Infusion: 01/21/23 19:50 Dose: 0 mls/hr Documented By: Admin: 01/21/23 19:24 Dose: 240 mls/hr Documented By: ALVA Insulin Human Regular (Novolin-R Insulin Per Unit Charge) 4 units IV NOW STA Stop: 01/21/23 18:14 Last Admin: 01/21/23 18:28 Dose: 4 units Documented By: HEATH Co-signed By: JAJA Potassium Chloride (Potassium Chloride Crtab 20 Meq Tabcr) 40 meq PO NOW STA Stop: 01/21/23 17:06 Last Admin: 01/21/23 18:28 Dose: 40 meq Documented By: HEATH Imaging Data Radiologist's Impression: Chest X-Ray 01/21/23 17:58 XR chest 1V portable HISTORY: neutropenic COMPARISON: Chest and right rib series 12/27/2021. FINDINGS: No pneumothorax. No pleural effusions. Mild diffuse interstitial thickening, unchanged. This is likely chronic. Stable volume loss within the right hemithorax. No new focal lung consolidations to suggest a pneumonia. No evidence for pulmonary edema. The heart is normal in size. IMPRESSION: No significant change compared to the prior study. No acute process. ACT 112: Negative or not required by law. Electronically signed by: Rodney Yo M.D. 01/21/2023 7:47 PM Discharge Plan Visit Data Chief Complaint: Hyperglycemia ED Provider: Alexx Mcgowan Discharge Problem: Severe neutropenia, Acute hyperglycemia, Acute hypotension Patient Disposition: Admitted As Inpatient Discharge Instructions Interventions: ED Discharge Assessment Last Done: 01/21/23 20:56 Forms Stand Alone Forms: [employer] Prescriptions Prescriptions: No Action azelastine 137 mcg (0.1 %) aerosol,spray 2 spray intranasal BID PRN (Reason: Congestion) naproxen sodium [Aleve] 220 mg Tablet 220 mg PO BID PRN (Reason: Pain) loratadine [Claritin] 10 mg Tablet 10 mg PO DAILY atenolol 25 mg tablet 25 mg PO QAM valacyclovir 1 gram tablet 1,000 mg PO BID terazosin 2 mg capsule 2 mg PO HS hydroxyzine HCl 25 mg tablet 25 mg PO TID PRN (Reason: Itching) polyethylene glycol 3350 [Miralax] 17 gram Powder In Packet 17 g PO DAILY PRN (Reason: constipation) Qty: 30 0RF diclofenac sodium [Voltaren Arthritis Pain] 1 % Gel 4 g EXT Q6 PRN (Reason: Pain) Qty: 1 0RF melatonin 3 mg Tablet 3 mg PO HS Qty: 10 0RF docusate sodium [Colace] 100 mg capsule 100 mg PO BID PRN (Reason: constipation) Qty: 60 0RF insulin glargine [Lantus Solostar U-100 Insulin] 100 unit/mL (3 mL) insulin pen 15 unit subcut DAILY Qty: 15 1RF (DME) needle (disp) 32 gauge 32 gauge x 5/16" needle See Rx Instructions .Route Qty: 100 0RF Rx Instructions: As directed (DME) FreeStyle Clementine 2 Sensor Kit See Rx Instructions .Route Qty: 2 0RF Rx Instructions: As directed (DME) FreeStyle Clementine 2 [place] Misc See Rx Instructions .Route Qty: 1 0RF Rx Instructions: As directed Referrals Referrals: Awilda Baron, [Primary Care Provider] -
[2023-01-21 15:34] LABS: iSTAT Hemoglobin 11.2 g/dl (14.0-18.0); iSTAT Ionized Calcium 1.13 mmol/l (1.12-1.32); iSTAT Potassium 3.4 mmol/L (3.3-5.0)
[2023-01-21 15:45] LABS: Troponin I High Sensitivity 12.2 pg/ml (0-20)
[2023-01-21 16:08] LABS: Hematocrit (blood only) 35.4 % (42.0-52.0); Hemoglobin 12.7 g/dl (14.0-18.0); Mean Corpuscular Hemoglobin 34.3 pg (25.0-34.0); Mean Corpuscular Hgb Conc 35.9 g/dL (32.0-36.0); Mean Corpuscular Volume 95.7 fL (80.0-100.0); Mean Platelet Volume 8.7 fL (9.4-12.4); Platelet Count 213 K/uL (130-400); RDW Coefficient of Variation 13.2 % (11.5-14.5); RDW Standard Deviation 45.9 fL (36.4-46.3); White Blood Count 0.94 K/ul (4.8-10.8)
[2023-01-21 16:22] LABS: ALC (manual) 0.39 K/uL (1.2-3.4); ANC (manual) 0.48 K/uL (1.4-6.5); Basophils # (manual) 0.01 K/uL (0-0.2); Basophils % (manual) 1 %; Echinocytes 2+; Eosinophils # (manual) 0.06 K/uL (0-0.50); Eosinophils % (manual) 6 %; Lymphocytes # (manual) 0.28 K/uL (1.2-3.4); Lymphocytes % (manual) 30 %; Monocytes # (manual) 0.01 K/uL (0.11-0.59); Monocytes % (manual) 1 %; Neutrophils # (manual) 0.48 K/uL (1.40-6.50); Neutrophils % (manual) 51 %; Reactive Lymphocytes # (manual) 0.11 K/uL; Reactive Lymphocytes % (manual) 12 %
[2023-01-21] MEDS ORDERED: CEFEPIME 2,000 MG/20 ML VIAL IV STA (16:47)
[2023-01-21] MEDS ORDERED: POTASSIUM CHLORIDE CRTAB 20 MEQ TABCR PO STA (17:05)
[2023-01-21 17:12] LABS: Bilirubin,Total 1.1 mg/dl (0.2-1.0); Calcium 7.9 mg/dl (8.6-10.3); Potassium 3.5 mmol/L (3.5-5.1)
[2023-01-21 17:33] LABS: Albumin Globulin Ratio 1.6 (0.9-2); BUN Creatinine Ratio 21.1 (10-20); Creatinine Clr Calc Pharmacy 40.3 ml/min; Est GFR (African American) 70.4 ml/min; Est GFR (Non-African American) 60.7 ml/min; Globulin 1.9 gm/dl (2.5-4.0); Total Protein 4.9 gm/dl (6.0-8.3)
[2023-01-21] MEDS ORDERED: NovoLIN-R INSULIN PER UNIT CHARGE IV STA (18:13)
--- NOTE | 2023-01-21 18:30 | History & Physical Report ---
Date of Service January 21, 2023 Assessment & Plan (1) Hypotension: (2) DM (diabetes mellitus): (3) Neutropenia: (4) BPH (benign prostatic hyperplasia): Plan This is an 87-year-old male who has significant past medical history of PAF, HTN, RBBB, first-degree AV block, hyperlipidemia, gout, BPH with obstructive symptoms and neutropenia who presents to ED secondary to hypotension and hyperglycemia. Pt was at urology OV for hosp f/u and voiding trial. Vazquez cath removed. Post cath removal pt become sweaty, diaphoretic and pale. SBPS in 60s. 5 min later SBP in 80s. BSG in 300s. EMS summoned. He received 2L of IVF, 1L en route and 1L in ED. BP has improved. Pt has stopped his outpatient losartan due to lower BP. Continues to take atenolol. States previously has high BP but has lost significant amount of weight. Hypotension Neutropenia given profound neutropenia will empirically treat for Sepsis in setting of hypotension with IV cefepime neutropenic precautions continue IVF NS + KCL 80cc/hr x 1 L pending peripheral smear, pt did have heme/onc eval as OP on 01/11 but this was cancelled, will need to be rescheduled obtain lactic acid, UA, CXR urine/blood cultures low BP may be related to meds T2DM with hyperglycemia lantus/novolog per protocol will consult glycemic pharmacy a1c 9.4 12/09/22 pt was d/c on 15 units of lantus daily, may need adjustment at d/c BPH w/ obs sx urinary retention follows [facility] urology, had vazquez removed today will bladder scan Qshift hold terasozin in setting of low BP hx of HTN losartan has been on hold due to lower BP will hold terazosin Dvt ppx: SQ Lovenox Dispo: admit to med tele, consult PT/OT PCP: Awilda Baron FULL CODE Pt was seen and examined in collaboration with Dr. Menezes, please see addendum History of Present Illness Chief Complaint: hypotension and hyperglycemia while at urology OV prior to arrival. Primary Care Provider: Awilda Baron, DO This is an 87-year-old male who has significant past medical history of PAF, HTN, RBBB, first-degree AV block, hyperlipidemia, gout, BPH with obstructive symptoms and neutropenia who presents to ED secondary to hypotension and hyperglycemia. Of significance patient was recently hospitalized 12/15/2022 to 12/31/2022 secondary to generalized weakness, DKA, ambulatory dysfunction, KAREN, urinary retention with failed voiding trial being discharged on Vazquez catheter, delirium and UTI. He was following up with urology today due to urinary retention and catheter was removed. When patient was getting up to leave appointment he became diaphoretic, pale and sweaty. Staff took his blood pressure and systolically was in the 60s and blood sugar was in the 300s. After 5 minutes a repeat blood pressure was systolically in the 80s. Due to this EMS was summoned. He received 1 L of IV fluid via EMS and additional liter of IV fluid in ED. Pt states when they took catheter out it hurt and then his symptoms started. He feels he nearly passed out. He denies feeling lightheaded currently. He denies f/c/s, pain, chest pain, sob, cough, uri sx, n/v/d,abd pain or hematuria. He has not urinated since his urology visit. He moved his bowels this morning and it was normal for him. He states his bsgs have been running 150s-350s at home. He has not yet seen the venereal disease control head. Overall feels his appetite has been good. Allergies Allergy/AdvReac Type Severity Reaction Status Date / Time Penicillins Allergy Intermediate HIVES Verified 01/21/23 17:45 Sulfa (Sulfonamide Allergy Intermediate RASH Verified 01/21/23 17:45 Antibiotics) tree and shrub pollen Allergy Intermediate CONGESTION Verified 01/21/23 17:45 Home Medications Medication Instructions Recorded Confirmed Type azelastine 137 mcg (0.1 %) nasal 2 spray intranasal BID PRN 07/10/19 01/21/23 History spray aerosol Congestion atenolol 25 mg tablet 25 mg PO QAM 11/20/21 01/21/23 History valacyclovir 1 gram tablet 1,000 mg PO BID 11/20/21 01/21/23 History hydroxyzine HCl 25 mg tablet 25 mg PO TID PRN Itching 12/15/22 01/21/23 History terazosin 2 mg capsule 2 mg PO HS 12/15/22 01/21/23 History diclofenac sodium 1 % topical gel 4 g EXT Q6 PRN Pain #1 tube 12/30/22 01/21/23 Rx (Voltaren Arthritis Pain) docusate sodium 100 mg capsule 100 mg PO BID PRN constipation #60 12/30/22 01/21/23 Rx (Colace) caps flash glucose scanning reader #1 ea 12/30/22 01/21/23 Rx (FreeStyle Clementine 2 Herrin) flash glucose sensor (FreeStyle #2 ea 12/30/22 01/21/23 Rx Clementine 2 Sensor kit) insulin glargine 100 unit/mL (3 15 unit (0.15 mL) subcut DAILY #15 12/30/22 01/21/23 Rx mL) subcutaneous pen (Lantus mL Solostar U-100 Insulin) melatonin 3 mg tablet 3 mg PO HS #10 tabs 12/30/22 01/21/23 Rx needle (disp) 32 gauge 32 gauge x #100 ea 12/30/22 01/21/23 Rx 5/16" polyethylene glycol 3350 17 gram 17 g PO DAILY PRN constipation #30 12/30/22 01/21/23 Rx oral powder packet (Miralax) ea loratadine 10 mg tablet (Claritin) 10 mg PO DAILY 01/21/23 01/21/23 History naproxen sodium 220 mg tablet 220 mg PO BID PRN Pain 01/21/23 01/21/23 History (Aleve) Past Med/Surg History Medical History Actinic keratosis BPH (benign prostatic hyperplasia) 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) Diverticulitis (07/23/14) Diverticulitis DM (diabetes mellitus) DVT (deep venous thrombosis) H/O prostatitis HTN (hypertension) Incomplete emptying of bladder (11/03/14) Left leg DVT Postoperative urethral stricture Sensorineural hearing loss of both ears Urinary retention UTI (lower urinary tract infection) UTI (lower urinary tract infection) Surgical History History of back surgery History of knee surgery History of surgery Stomach, skin S/P TURP Family History Other Family history non-contributory Heart disease No family history of adverse response to anesthesia No family history of bleeding disorder Denies family history of Ovarian cancer Prostate cancer Myocardial infarction Breast cancer Colorectal cancer Social History Smoking Status: Former smoker Second Hand Exposure: No; Hx Alcohol Use: No Hx Substance Use: No Preferred Language: Haitian Communication Ability: Effective Visual Impairment: No Limitations Hearing Ability: Hard of Hearing Medical Dosimetrist Required: No Beliefs That Will Affect Care: None marital status: Current Living Situation: Spouse current occupational status: retired How many Children do You have: 3 Feels Safe at Home: Yes Childhood Exposure to Second-Hand Smoke: No Dental Care, Regularly: Yes Physical Activity Frequency: 3-4 Times per Week Seatbelt Use: always Sunscreen Use: No Assistive Devices: Cane Review of Systems Review of Systems: All systems reviewed & are unremarkable except as noted in HPI & below Physical Exam Physical Exam: Please refer to Dr. Menezes addendum for physical exam findings. Results & Data Results & Data Vital Signs (Past 12 Hours) Vital Signs Temp Pulse Resp BP Pulse Ox O2 Del Method 01/21/23 18:11 100 H 16 115/59 L 99 01/21/23 16:30 80 20 113/53 L 98 01/21/23 15:00 86 21 114/49 L 97 01/21/23 14:46 81 01/21/23 14:39 16 01/21/23 14:39 36.6 C 78 16 92/52 L 96 Room Air Medications Administered Medication List Discontinued Medications Sodium Chloride (Nss 1000ml) 1,000 mls @ 999 mls/hr IV .Q1H1M ONE Stop: 01/21/23 16:07 Last Infusion: 01/21/23 17:24 Dose: 0 mls/hr Documented By: Admin: 01/21/23 15:51 Dose: 999 mls/hr Documented By: MT ECG Rate (beats per minute): 81 Rhythm: normal sinus Additional Comments: PAC, RBBB, t wave inversion V1-v3 reviewed by dc COVID-19 Results Results COVID-19 Adm Lab Results: RBC 3.70 M/uL (4.70-6.10) L 01/21/23 WBC 0.94 K/ul (4.8-10.8) L* 01/21/23 Hgb 12.7 g/dl (14.0-18.0) L 01/21/23 Hct 35.4 % (42.0-52.0) L 01/21/23 Plt Count 213 K/uL (130-400) 01/21/23 ANC 0.48 K/uL (1.4-6.5) L* 01/21/23 ALC 0.39 K/uL (1.2-3.4) L 01/21/23 Neutrophils % (Manual) 51 % 01/21/23 Lymphocytes % (Manual) 30 % 01/21/23 Reactive Lymphocytes % (Manual) 12 % 01/21/23 Monocytes % (Manual) 1 % 01/21/23 Eosinophils % (Manual) 6 % 01/21/23 Basophils % (Manual) 1 % 01/21/23 Neutrophils # (Manual) 0.48 K/uL (1.40-6.50) L 01/21/23 Lymphocytes # (Manual) 0.28 K/uL (1.2-3.4) L 01/21/23 Reactive Lymphocytes # 0.11 K/uL 01/21/23 Monocytes # (Manual) 0.01 K/uL (0.11-0.59) L 01/21/23 Eosinophils # (Manual) 0.06 K/uL (0-0.50) 01/21/23 Basophils # (Manual) 0.01 K/uL (0-0.2) 01/21/23 Echinocytes 2+ 01/21/23 Na 136 mmol/L (136-145) 01/21/23 K 3.5 mmol/L (3.5-5.1) 01/21/23 Cl 104 mmol/L (98-107) 01/21/23 CO2 23 mmol/L (21-32) 01/21/23 Anion Gap 9 (3-11) 01/21/23 BUN 23 mg/dl (6-23) 01/21/23 Creatinine 1.09 mg/dl (0.6-1.4) 01/21/23 BUN/Creatinine Ratio 21.1 (10-20) H 01/21/23 Glucose Level 334 mg/dl (70-99(Fasting)) H* 01/21/23 Ca 7.9 mg/dl (8.6-10.3) L 01/21/23 Total Bilirubin 1.1 mg/dl (0.2-1.0) H 01/21/23 AST/SGOT 14 U/L (13-39) 01/21/23 ALT/SGPT 13 U/L (7-52) 01/21/23 Alkaline Phosphatase 78 U/L (34-104) 01/21/23 Total Protein 4.9 gm/dl (6.0-8.3) L 01/21/23 Albumin 3.0 gm/dl (3.4-5.0) L 01/21/23 Globulin 1.9 gm/dl (2.5-4.0) L 01/21/23 Albumin/Globulin Ratio 1.6 (0.9-2) 01/21/23 SARS-CoV-2, RNA, NAAT NEGATIVE (NEGATIVE) 01/21/23 Chest X-Ray 01/21/23 Code Status & VTE Plan Code Status FULL CODE VTE Prophylaxis Plan VTE Prophylaxis will be ordered: Yes Supervising Physician Co-Signing Physician Notes Patient is an 87-year-old male with history of paroxysmal atrial fibrillation, hypertension, BPH and other medical problems who was recently discharged from [facility] after being treated for diabetic ketoacidosis, KAREN, urinary retention, UTI who presented to urology clinic for follow-up for urinary retention management. Vazquez catheter was discontinued while in the clinic. Patient admits to have significant pain while Vazquez catheter being removed. Patient currently became diaphoretic, pale, clammy and was found to have blood pressure in 60s and so was sent to ED for further evaluation. Blood pressure improved with IV fluids while in ED. He was noted to have hyperglycemia in the 300s, neutropenia. He denies any fever, chills, chest pain, dyspnea, cough, diarrhea, abdominal pain, nausea, vomiting syncopal, dizziness. He admits to taking his insulin this morning. Please review HPI for complete details of presentation. I personally reviewed blood work, imaging studies and prior EKG. Physical Exam: Vitals signs as noted above General Appearance:Thin, frail, elderly, no apparent distress Head: normocephalic, Atraumatic Eyes: normal inspection, EOMI Neck: supple, Trachea midline Respiratory/Chest: Normal breath sounds, CTA, No accessory muscle use Cardiovascular: S1, S2, No murmur Abdomen/GI:Soft, Non tender, Bowel sounds present Extremities/Musculoskeletal:normal inspection, Trace pedal edema Neurologic/Psych:AAOX3, grossly no focal neurological deficits Skin: normal color, warm Hypertension ? Vasovagal response Neutropenia Rule out sepsis Empirically started on IV fluids, cefepime Blood cultures, urinalysis, chest x-ray, lactic acid ordered Hold antihypertensives Peripheral smear pending Consider oncology evaluation. Uncontrolled diabetes mellitus Continue insulin while hospitalized Will need endocrinology follow-up as outpatient BPH Urinary retention Bladder scan every shift while holding terazosin Hypocalcemia Replace calcium Monitor I personally reviewed the record. Patient is interviewed and examined at bedside. Patient's care is coordinated with Ashley Boogie PA-C. Please refer to the documentation above for details of patient's presentation and for discussion of other issues.
[2023-01-21] MEDS ORDERED: CALCIUM GLUCONATE 1,000 MG/60 ML BAG IV STA (19:16)
--- NOTE | 2023-01-21 19:49 | XRay Report ---
XR chest 1V portable HISTORY: neutropenic COMPARISON: Chest and right rib series 12/27/2021. FINDINGS: No pneumothorax. No pleural effusions. Mild diffuse interstitial thickening, unchanged. Thi s is likely chronic. Stable volume loss within the right hemithorax. No new focal lung consolidations to suggest a pneumonia. No evidence for pulmonary edema. The heart is normal in size. IMPRESSION: No significant change compared to the prior study. No acute process. ACT 112: Negative or not required by law. Electronically signed by: Rodney Yo M.D. 01/21/2023 7:47 PM
[2023-01-21] MEDS ORDERED: PHARMACY GLYCEMIC MGMT CONSULT PRN (21:07)
[2023-01-21] MEDS ORDERED: POLYETHYLENE (MIRALAX) 17 GM PACK PO PRN (21:07)
[2023-01-21] MEDS ORDERED: MAGNESIUM HYDROXIDE SUSP 30 ML UDC PO PRN (21:07)
[2023-01-21] MEDS ORDERED: GLUCOSE 40% GEL 15 GM TUBE PO PRN (21:07)
[2023-01-21] MEDS ORDERED: CARBOHYDRATES FOR HYPOGLYCEMIA PO PRN (21:07)
[2023-01-21] MEDS ORDERED: DOCUSATE SODIUM 100 MG CAP PO PRN (21:07)
[2023-01-21] MEDS ORDERED: GLUCAGON FOR INJ 1 MG VIAL SQ PRN (21:07)
[2023-01-21] MEDS ORDERED: hydrOXYzine HCl 25 MG TAB PO PRN (21:07)
[2023-01-21] MEDS ORDERED: DEXTROSE 50% 50 ML SYRINGE IV PRN (21:07)
[2023-01-21] MEDS ORDERED: GLUCOSE 10 TAB/TUBE PO PRN (21:07)
[2023-01-21] MEDS ORDERED: ALUMINUM/MAGNESIUM SUSP 30 ML UDC PO PRN (21:07)
[2023-01-21] MEDS ORDERED: DICLOFENAC SOD 1% GEL 100 GM TUBE EXT PRN (21:07)
[2023-01-21] MEDS ORDERED: ONDANSETRON INJ 2 MG/ML 2 ML VIAL IV PRN (21:07)
[2023-01-21] MEDS ORDERED: ACETAMINOPHEN 325 MG TAB PO PRN (21:07)
[2023-01-21] MEDS: LANTUS PER UNIT CHARGE SQ SCH (21:56)
[2023-01-21] MEDS: ENOXAPARIN INJ 30 MG/0.3 ML SYR SQ SCH (21:57)
[2023-01-21] MEDS: valACYclovir HCL 500 MG TABLET PO SCH (21:57)
[2023-01-21] MEDS: INSULIN ASPART PER UNIT CHARGE SC SCH (21:57)
[2023-01-21] MEDS: MELATONIN 3 MG TAB PO SCH (21:57)
[2023-01-21] MEDS ORDERED: NSS + 20MEQ KCL 20 MEQ/1,000 ML BAG IV SCH (22:00)
[2023-01-22] MEDS: INSULIN ASPART PER UNIT CHARGE SC SCH ×6 (00:15→20:07)
[2023-01-22 02:33] LABS: Appearance Urine Turbid (Clear); Bacteria Urine Automated 1+ (Negative); Bilirubin Urine Negative (Negative); Blood Urine 3+ (Negative); Color Urine Yellow; Epithelial Cell Urine Auto >30 /lpf (0-5); Glucose Urine UA 3+ (Negative); Ketones Urine Trace (Negative); Leukocyte Esterase Urine 2+ (Negative); Nitrite Urine Negative (Negative); Protein Urine Trace (Negative); Specific Gravity Urine 1.022 (1.000-1.030); Urobilinogen Urine Negative (Negative); WBC Urine Automated >30 /hpf (0-5)
[2023-01-22 02:47] LABS: Calcium Oxalate Crystals Urine Present (None Prsent); Mucus Urine Present (None Prsent)
[2023-01-22] MEDS: CEFEPIME 2,000 MG in SYRINGE 0 ML IV SCH ×2 (05:31→18:04)
[2023-01-22 06:49] LABS: Hematocrit (blood only) 33.4 % (42.0-52.0); Hemoglobin 12.1 g/dl (14.0-18.0); Mean Corpuscular Hemoglobin 34.1 pg (25.0-34.0); Mean Corpuscular Hgb Conc 36.2 g/dL (32.0-36.0); Mean Corpuscular Volume 94.1 fL (80.0-100.0); Mean Platelet Volume 8.8 fL (9.4-12.4); Platelet Count 209 K/uL (130-400); RDW Coefficient of Variation 12.6 % (11.5-14.5); RDW Standard Deviation 43.6 fL (36.4-46.3); Red Blood Count 3.55 M/uL (4.70-6.10); White Blood Count 1.08 K/ul (4.8-10.8)
[2023-01-22 07:07] LABS: Albumin Globulin Ratio 1.5 (0.9-2); Albumin Level 2.9 gm/dl (3.4-5.0); BUN Creatinine Ratio 23.6 (10-20); Calcium 8.1 mg/dl (8.6-10.3); Creatinine Clr Calc Pharmacy 52.9 ml/min; Est GFR (African American) 89.1 ml/min; Est GFR (Non-African American) 76.9 ml/min; Globulin 1.9 gm/dl (2.5-4.0); Magnesium 1.6 mg/dl (1.7-2.4); Potassium 3.8 mmol/L (3.5-5.1); Total Protein 4.8 gm/dl (6.0-8.3)
[2023-01-22] MEDS: LANTUS PER UNIT CHARGE SQ SCH ×2 (08:16→21:34)
[2023-01-22] MEDS: valACYclovir HCL 500 MG TABLET PO SCH ×2 (08:18→19:52)
[2023-01-22] MEDS: LORATADINE 10 MG TAB PO SCH (08:18)
--- NOTE | 2023-01-22 09:13 | Hospitalist Progress Note ---
Date of Service January 22, 2023 Assessment & Plan (1) Hypotension: (2) Neutropenia: (3) DM (diabetes mellitus): (4) BPH (benign prostatic hyperplasia): (5) PAF (paroxysmal atrial fibrillation): Plan: h/o single event controlled in sinus on combination of atenolol and flecainide. This AF event occurred in the setting of acute illness and high dose corticosteroid use for PMR in 2005. Has had no recurrence of AF and followed with [facility]. Remains on atenolol and losartan at reduced doses. No AC indicated. (6) Sacral decubitus ulcer: Plan This is an 87-year-old male who has significant past medical history of PAF, HTN, RBBB, first-degree AV block, hyperlipidemia, gout, BPH with obstructive symptoms and neutropenia who presents to ED secondary to hypotension and hyperglycemia. Pt was at urology OV for hosp f/u and voiding trial. Vazquez cath removed. Post cath removal pt become sweaty, diaphoretic and pale. SBPs in 60s. 5 min later SBP in 80s. BSG in 300s. EMS summoned. He received 2L of IVF, 1L en route and 1L in ED. BP has improved. Pt has stopped his outpatient losartan due to lower BP. Continues to take atenolol. States previously has high BP but has lost significant amount of weight. Hypotension possible UTI/sepsis given profound neutropenia will empirically treat for Sepsis in setting of hypotension with IV cefepime neutropenic precautions afebrile, possible CAUTI? Urine culture pending; UA with 1+ bacteriuria, turbid appearance, >30 WBCs, +RBCs and evidence of calcium oxalate crystals. Continues on cefepime for now. pending peripheral smear, pt did have heme/onc eval as OP on 01/11 scheduled for eval of new neutropenia but this was cancelled, will need to be rescheduled neutropenia new since Winter 2021 Lost 20 lbs in last 12 months per outpatient records review. low BP may have been related to medications or situational given he was having manipulation of a urinary catheter in the office, which is stressful for him He is currently declining urinary catheter reinsertion despite elevated post void residuals on bladder scan that are 500-700cc Consulting urology for assistance and will restart his terazosin which was held on admission Will also add proscar for help with LUTS Neutropenia Per outpatient record review, neutropenia likely developed in the last 6 months. Needs outpatient hematology workup for this. No fever in house. Also, patient has 2 sacral ulcer wounds that were POA. Consider as a possible source of infection pending further clinical culture results. Sacral ulcerations-unstageable Wound care nurse assessed with silver and foam dressing applied, continue to stay off this site. BPH w/ obs sx urinary retention follows [facility] urology, had vazquez removed today will bladder scan Qshift hold terasozin in setting of low BP T2DM with hyperglycemia uncontrolled with A1C>8, lantus/novolog per protocol glycemic pharmacy managing pt was d/c on 15 units of lantus daily, may need adjustment at d/c close f/o with MTM clinic recommended. hx of HTN losartan has been on hold due to lower BP terazosin originally held in setting of hypotension, but restarting khalif in setting of urinary retention that is persistent Dvt ppx: SQ Lovenox Dispo: admit to med tele, consult PT/OT PCP: Awilda Baron FULL CODE [facility] Date Admission Date: January 21, 2023 Subjective 87 yo M with neutropenia of uncertain origin presents via EMS after hypotensive episode in Urology office just after TOV. Pt states"I am fine and I don't want another catheter. I am urinating just fine." Briefly discussed post void residuals of 500-700 and that this can back up pressure into the kidney and cause problems. Patient states that he understands and declines for now. States "if I had a problem with this I would just go get surgery." Difficult to gather any other information from him at this point because he is upset with the current line of questioning and recommendations surrounding the vazquez cathter. Review of Systems Review of Systems: All systems were reviewed and negative except as indicated on HPI above. Physical Exam Physical Exam: CONSTITUTIONAL: WNWD, vitals as above, generally well-appearing EYES: normal conjunctivae, no scleral icterus ENT: external ear and nose normal, MMM NECK: trachea midline RESPIRATORY: clear to auscultation bilaterally, no crackles, rales or wheezes, normal respiratory effort CARDIOVASCULAR: regular rate and rhythm, S1 and 2 heard without murmurs, gallops or rubs, no JVD, no peripheral edema CHEST: inspection of chest was normal GASTROINTESTINAL: soft, nontender, ND, no guarding MUSCULOSKELETAL: strength 5/5 throughout, head is normocephalic and atraumatic SKIN: warm and dry NEUROLOGIC: CN 2-12 grossly intact, no sensory deficit, normal cognition, normal speech, no tremor PSYCHIATRIC: alert cooperative Results & Data Results & Data Vital Signs (Past 12 Hours) Vital Signs Temp Pulse Pulse Resp BP Pulse Ox O2 Del Method 01/22/23 07:22 36.4 C L 86 18 150/66 H 98 Room Air 01/22/23 03:20 36.4 C L 92 H 18 129/60 97 Room Air 01/21/23 23:50 93 H 01/21/23 23:40 36.6 C 100 H 20 105/58 L 93 Room Air 01/21/23 21:47 99 H Laboratory Results Short CBC 01/21/23 01/22/23 Range/Units 14:44 05:56 WBC 0.94 L* 1.08 L (4.8-10.8) K/ul Hgb 12.7 L 12.1 L (14.0-18.0) g/dl Hct 35.4 L 33.4 L (42.0-52.0) % Plt Count 213 209 (130-400) K/uL BMP 01/21/23 01/22/23 14:44 05:56 Sodium 136 139 Potassium 3.5 3.8 Chloride 104 110 H Carbon Dioxide 23 24 BUN 23 21 Creatinine 1.09 0.89 Glucose 334 H* 105 H Calcium 7.9 L 8.1 L Liver Function 01/21/23 01/22/23 Range/Units 14:44 05:56 Total Bilirubin 1.1 H 1.0 (0.2-1.0) mg/dl AST 14 10 L (13-39) U/L ALT 13 12 (7-52) U/L Alkaline Phosphatase 78 69 (34-104) U/L Albumin 3.0 L 2.9 L (3.4-5.0) gm/dl Urine 01/22/23 Range/Units 01:34 Urine Color Yellow Urine Appearance Turbid A (Clear) Urine pH 5.0 (4.5-7.5) Ur Specific Elbert 1.022 (1.000-1.030) Urine Protein Trace H (Negative) Urine Glucose (UA) 3+ H (Negative) Medications Administered Current Inpatient Medications Acetaminophen (Acetaminophen 325 Mg Tab) 650 mg PO Q4H PRN PRN Reason: Pain or Fever Stop: 02/20/23 21:06 Al Hydrox/Mg Hydrox/Simethicone (Aluminum/Magnesium Susp 30 Ml Udc) 15 ml PO Q4H PRN PRN Reason: Dyspepsia Stop: 02/20/23 21:06 Dextrose (Dextrose 50% 50 Ml Syringe) 25 - 50 ml IV UD PRN; Protocol PRN Reason: Hypoglycemia Protocol Stop: 02/20/23 21:06 Diclofenac Sodium (Diclofenac Sod 1% Gel 100 Gm Tube) 4 gm EXT Q6 PRN; Protocol PRN Reason: Pain Stop: 02/20/23 21:06 Docusate Sodium (Docusate Sodium 100 Mg Cap) 100 mg PO BID PRN PRN Reason: constipation Stop: 02/20/23 21:06 Enoxaparin Sodium (Enoxaparin Inj 30 Mg/0.3 Ml Syr) 30 mg SQ HS VINOD Stop: 02/20/23 21:06 Last Admin: 01/21/23 21:57 Dose: 30 mg Glucagon (Glucagon For Inj 1 Mg Vial) 1 mg SQ UD PRN; Protocol PRN Reason: Hypoglycemia Protocol Stop: 02/20/23 21:06 Glucose (Glucose 10 Tab/Tube) 4 - 8 tab PO UD PRN; Protocol PRN Reason: Hypoglycemia Treatment Stop: 02/20/23 21:06 Glucose (Glucose 40% Gel 15 Gm Tube) 15 - 30 gm PO UD PRN; Protocol PRN Reason: Hypoglycemia Protocol Stop: 02/20/23 21:06 Hydroxyzine HCl (Hydroxyzine Hcl 25 Mg Tab) 25 mg PO TID PRN PRN Reason: Itching Stop: 02/20/23 21:06 Potassium Chloride/Sodium Chloride (Normal Saline W/20 Meq Kcl) 20 meq in 1,000 mls @ 75 mls/hr IV .[id number] VINOD; Protocol Stop: 01/22/23 11:19 Last Admin: 01/21/23 22:35 Dose: 75 mls/hr Cefepime HCl 2,000 mg/ Syringe 20 mls @ 5 mls/min IV Q12H VINOD; Protocol Stop: 01/24/23 05:59 Last Admin: 01/22/23 05:31 Dose: 5 mls/min Magnesium Sulfate/Dextrose (Magnesium Sulfate / D5w) 1 gm in 100 mls @ 50 mls/hr IV Q2H [facility] Stop: 01/22/23 13:14 Insulin Aspart (Insulin Aspart Per Unit Charge) 0 units SC ACHS [facility] Stop: 02/20/23 21:06 Last Admin: 01/22/23 08:18 Dose: 3 units Insulin Glargine (Lantus Per Unit Charge) 12 units SQ HS [facility]; Protocol Stop: 02/21/23 20:59 Loratadine (Loratadine 10 Mg Tab) 10 mg PO DAILY [facility] Stop: 02/21/23 08:59 Last Admin: 01/22/23 08:18 Dose: 10 mg Magnesium Hydroxide (Magnesium Hydroxide Susp 30 Ml Udc) 30 ml PO Q12H PRN PRN Reason: Constipation Stop: 02/20/23 21:06 Melatonin (Melatonin 3 Mg Tab) 3 mg PO HS [facility] Stop: 02/20/23 21:06 Last Admin: 01/21/23 21:57 Dose: 3 mg Miscellaneous (Carbohydrates For Hypoglycemia ) 15 - 30 gm PO UD PRN PRN Reason: Hypoglycemia Protocol Stop: 02/20/23 21:06 Miscellaneous Information (Pharmacy Glycemic Mgmt Consult) 1 each N/A UD PRN PRN Reason: Consult Stop: 02/20/23 21:06 Ondansetron HCl (Ondansetron Inj 2 Mg/Ml 2 Ml Vial) 4 mg IV Q6H PRN PRN Reason: Nausea Stop: 02/20/23 21:06 Polyethylene Glycol (Polyethylene (Miralax) 17 Gm Pack) 17 gm PO DAILY PRN PRN Reason: Constipation Stop: 02/20/23 21:06 Valacyclovir HCl (Valacyclovir Hcl 500 Mg Tablet) 1,000 mg PO BID [facility] Stop: 02/20/23 21:06 Last Admin: 01/22/23 08:18 Dose: 1,000 mg (6) Sacral decubitus ulcer Pressure injury stage: unspecified pressure injury stage Qualified Code(s): L89.159 - Pressure ulcer of sacral region, unspecified stage
[2023-01-22 09:56] LABS: ALC (manual) 0.65 K/uL (1.2-3.4); ANC (manual) 0.35 K/uL (1.4-6.5); Basophils # (manual) 0.02 K/uL (0-0.2); Basophils % (manual) 2 %; Blast # (manual) 0.02 K/uL (0-0); Blast Cells % (manual) 2 %; Eosinophils # (manual) 0.04 K/uL (0-0.50); Eosinophils % (manual) 4 %; Lymphocytes # (manual) 0.65 K/uL (1.2-3.4); Lymphocytes % (manual) 60 %; Monocytes # (manual) 0.01 K/uL (0.11-0.59); Monocytes % (manual) 1 %; Neutrophils # (manual) 0.35 K/uL (1.40-6.50); Neutrophils % (manual) 32 %
[2023-01-22] MEDS: MAGNESIUM SULFATE / D5W 1 GM/100 ML BAG IV SCH ×2 (09:57→11:18)
--- NOTE | 2023-01-22 13:51 | Pharmacy Report ---
Pharmacy Glycemic Short Note 2 - Date of Service January 22, 2023 - Glycemic Short BSG Results (Last 24 hours): 01/21/23 01/21/23 01/21/23 14:44 15:13 15:21 Glucose 334 H* POC Glucose 296 H POC Glucose (other) 310 H 01/21/23 01/21/23 01/21/23 18:11 21:07 21:08 Glucose POC Glucose 265 H 302 H* 299 H POC Glucose (other) 01/22/23 01/22/23 01/22/23 00:12 03:47 05:56 Glucose 105 H POC Glucose 294 H 96 POC Glucose (other) 01/22/23 01/22/23 07:44 11:41 Glucose POC Glucose 112 H 206 H POC Glucose (other) OUTPATIENT ANTIDIABETIC REGIMEN: * Lantus 15 units daily * Jardiance 10mg daily * Metformin ER 1000mg QAM ASSESSMENT: * 87 year old male with type 2 diabetes; HbA1c 9.4% on 12/15/22. Today's A1c pending. * Upon presentation on 01/21, BSG was elevated at 296. Patient received 4 units of regular insulin as IV bolus. He was also started on novolog with 40-13 parameters, and given 10 units of Lantus at bedtime per scale. * Overnight, 0400 BSG was low at 96 mg/dL. 0800 fasting at lower end of goal range at 112 mg/dL. It is a possibility that the patient received his home Lantus in addition to the 10 units given upon arrival, per admission med rec. Total daily Lantus dose will be decreased by ~20% from the home regimen. * Luchtime BSG 206 mg/dL. Will tighten Novolog parameters to 30-9 given previous success on this regimen in a recent admission. PLAN FOR INPATIENT GLYCEMIC CONTROL: * Hold outpatient oral diabetes medications * Basal insulin * Lantus 12 units SQ HS * Bolus insulin * NovoLog per scale ACHS or Q6hrs while NPO * Goal Range: Low 110 mg/dL - High 140 mg/dL * Correction Factor: 30 mg/dL/unit * Nutritional / Prandial insulin per carb ratio of 1 unit per 9 grams CHO c onsumed
--- NOTE | 2023-01-22 14:30 | Electrocardiogram Report ---
Test Reason : Blood Pressure : / mmHG Vent. Rate : 081 BPM Atrial Rate : 081 BPM P-R Int : 222 ms QRS Dur : 126 ms QT Int : 398 ms P-R-T Axes : 049 078 041 degrees QTc Int : 462 ms Sinus rhythm with 1st degree A-V block with Premature atrial complexes Right bundle branch block Septal infarct (cited on or before 24-DEC-2022) Abnormal ECG When compared with ECG of 24-DEC-2022 19:49, Premature atrial complexes are now Present Right bundle branch block is now Present Confirmed by Henry Carbajal ([id number] on 01/22/2023 2:30:02 PM Referred By: REFERRED SELF Confirmed By:Henry Carbajal
[2023-01-22] MEDS: MELATONIN 3 MG TAB PO SCH (19:51)
[2023-01-22] MEDS: ENOXAPARIN INJ 30 MG/0.3 ML SYR SQ SCH (19:51)
[2023-01-22 22:26] LABS: Estimated Average Glucose 189 mg/dl; Hemoglobin A1C 8.2 % (4.5-5.6)
[2023-01-23] MEDS: CEFEPIME 2,000 MG in SYRINGE 0 ML IV SCH ×3 (04:54→18:21)
[2023-01-23] MEDS ORDERED: TERAZOSIN HCL 1 MG CAP PO ONE (08:15)
[2023-01-23] MEDS: INSULIN ASPART PER UNIT CHARGE SC SCH ×4 (08:41→21:11)
[2023-01-23 08:42] LABS: BUN Creatinine Ratio 17.1 (10-20); Calcium 8.7 mg/dl (8.6-10.3); Creatinine Clr Calc Pharmacy 44.9 ml/min; Est GFR (African American) 73.6 ml/min; Est GFR (Non-African American) 63.5 ml/min
[2023-01-23 08:49] LABS: Hematocrit (blood only) 43.1 % (42.0-52.0); Hemoglobin 15.4 g/dl (14.0-18.0); Mean Corpuscular Hemoglobin 34.4 pg (25.0-34.0); Mean Corpuscular Hgb Conc 35.7 g/dL (32.0-36.0); Mean Corpuscular Volume 96.2 fL (80.0-100.0); Mean Platelet Volume 8.4 fL (9.4-12.4); Platelet Count 283 K/uL (130-400); RBC Morphology Unremarkable; RDW Coefficient of Variation 13.2 % (11.5-14.5); RDW Standard Deviation 47.1 fL (36.4-46.3); Red Blood Count 4.48 M/uL (4.70-6.10); White Blood Count 1.37 K/ul (4.8-10.8)
[2023-01-23 08:52] LABS: Basophils # (auto) 0.01 K/uL (0-0.2); Basophils % (auto) 0.7 %; Eosinophils # (auto) 0.09 K/uL (0-0.50); Eosinophils % (auto) 6.6 %; Lymphocytes # (auto) 0.72 K/uL (1.2-3.4); Lymphocytes % (auto) 52.6 %; Monocytes # (auto) 0.04 K/uL (0.11-0.59); Monocytes % (auto) 2.9 %; Neutrophils # (auto) 0.51 K/uL (1.40-6.50); Neutrophils % (auto) 37.2 %
[2023-01-23] MEDS ORDERED: TAMSULOSIN HCL 0.4 MG CAP PO SCH (09:00)
--- NOTE | 2023-01-23 09:53 | Hospitalist Progress Note ---
Date of Service January 23, 2023 Assessment & Plan (1) Sepsis: (2) Hypotension: (3) Neutropenia: (4) Acute on chronic urinary retention: (5) DM (diabetes mellitus): (6) BPH (benign prostatic hyperplasia): (7) PAF (paroxysmal atrial fibrillation): Plan: h/o single event controlled in sinus on combination of atenolol and flecainide. This AF event occurred in the setting of acute illness and high dose corticosteroid use for PMR in 2005. Has had no recurrence of AF and followed with [facility]. Remains on atenolol and losartan at reduced doses. No AC indicated. (8) Sacral decubitus ulcer: Plan This is an 87-year-old male who has significant past medical history of PAF, HTN, RBBB, first-degree AV block, hyperlipidemia, gout, BPH with obstructive symptoms and neutropenia who presents to ED secondary to hypotension and hyperglycemia. Pt was at urology OV for hosp f/u and voiding trial. Vazquez cath removed. Post cath removal pt become sweaty, diaphoretic and pale. SBPs in 60s. 5 min later S BP in 80s. BSG in 300s. EMS summoned. He received 2L of IVF, 1L en route and 1L in ED. BP improved. Pt has stopped his outpatient losartan due to lower BP. Continues to take atenolol. States previously has high BP but has lost significant amount of weight. Hypotension possible UTI/sepsis given profound neutropenia will empirically treat for Sepsis in setting of hypotension with IV cefepime neutropenic precautions afebrile, possible CAUTI? Urine culture pending but there is some growth on plate per micro lab; UA with 1+ bacteriuria, turbid appearance, >30 WBCs, +RBCs and evidence of calcium oxalate crystals. Continues on cefepime for now pending urine culture. low BP may have been related to medications or situational given he was having manipulation of a urinary catheter in the office, which is stressful for him He was declining urinary catheter reinsertion despite elevated post void residuals on bladder scan that are 500-700cc Consulting urology for assistance and will restart his terazosin which was held on admission Will also add proscar for help with LUTS BPH w/ obs sx urinary retention follows [facility] [place] urology, vazquez removed in clinic on day of admission persistent urinary retention initially terazosin held in setting of hypotension This is in low supply at the hospital today, so gave flomax this am, started proscar Pt brought his own supply of terazosin, will give this instead Finally amenable to insertion of a vazquez catheter which was successfully placed. Neutropenia Lost 20 lbs in last 12 months per outpatient records review. Per outpatient record review, neutropenia likely developed in the last 6 months. Peripheral smear performed this admission with rare blasts noted, pt did have heme/onc eval as OP on 01/11 scheduled for eval of new neutropenia but this was cancelled, will need to be rescheduled Will consult hematology now Given weight loss, ordered CT c/a/p Also, patient has sacral ulcer wounds that were POA. Ulcer wounds look clean and not infected. Likely source of infection above is urinary Sacral ulcerations-unstageable Wound care nurse assessed with silver and foam dressing applied, continue to stay off this site. T2DM with hyperglycemia uncontrolled with A1C>8, lantus/novolog per protocol Recently diagnosed with DMII in Oct. Initially placed on metformin and shortly afterwards Jardiance was added. Patient presented with anion gap metabolic acidosis with a glucose of 307, which may have been metformin induced lactic acidosis. The lactate was not checked at that time. The addition of Jardiance may not be ideal in this patient either because of his ongoing urinary retention and recent UTIs. Would not continue with this option for glycemic control for this reason either. We also want to avoid the use of SGLT2 inhibitors in patients with frequent bacterial UTIs or yeast infections, low bone density and high risk for falls/fractures, and factors predisposing them for DKA. Per guidelines from the [employer], his glycemic target give his older age and shorter life expectancy should be A1C <8. His A1C is currently 8.2. With this information, a good option for him at discharge may be a low dose glipizide 2.5mg PO once or twice daily. Would stop insulin at discharge. glycemic pharmacy currently managing and he is on basal bolus insulin in house. pt was d/c on 15 units of lantus daily from most recent admission, and was hyperglycemic at home and seen just prior to admission Will adjust this at D/c (see above plan) close f/u with [facility] clinic recommended for further titration to goal effect. hx of HTN losartan has been on hold due to lower BP, continue to hold while restarting. terazosin originally held in setting of hypotension, but restarting khalif in setting of urinary retention that is persistent Dvt ppx: SQ Lovenox Dispo: admit to med tele, consult PT/OT PCP: Awilda Baron FULL CODE I spoke with by phone and updated her on the concern for bladder stretch and pressure on the kidneys with persistent retention and no vazquez catheter. I explained the concept of post void residual after she reported that he was urinating excessively per his report. She verbalized understanding and said she was calling her son who can help to calm him down. I told her that Urology is consulted to see him and speak with him. She also confirmed that patient is eating the same but had lost more than 20 lbs in the last year. We discussed a CT c/a/p when he is more amenable to care. She thanked me for the update. I came to the bedside and discussed the care plan with 3 additional family members, including both his sons, for an additional 25 minutes. We discussed the importance of vazquez reinsertion and went through the plan in detail. All questions were answered to their satisfaction. I spent a total [id number] coordinating, documenting, and providing care for this patient excluding time spent in the performance of separately billed kim Diop DO [facility] Hospitalist Admission and Anticipated Discharge Date Admission Date: January 21, 2023 Subjective 87 yo M admitted for hypotension, presumed sepsis 2/2 UTI today started off with him pulling off his heart monitor and refusing treatment Urology went in and explained the importance of decompressing the bladder The patient reports feeling fine and states he is urinating enough and there is nothing wrong Later his family came in and we went through the possible outcomes and risk involved without vazquez catheter replacement Patient was amenable with the support of his family. Ordered lidocaine jelly for patient's comfort. I offered to ask the urologist to place the catheter and he was fine with using the nurse. Review of Systems Review of Systems: All systems were reviewed and negative except as indicated on HPI above. Physical Exam Physical Exam: CONSTITUTIONAL: WNWD, vitals as above, generally well-appearing EYES: normal conjunctivae, no scleral icterus ENT: external ear and nose normal, MMM NECK: trachea midline RESPIRATORY: clear to auscultation bilaterally, no crackles, rales or wheezes, normal respiratory effort CARDIOVASCULAR: regular rate and rhythm, S1 and 2 heard without murmurs, gallops or rubs, no JVD, no peripheral edema CHEST: inspection of chest was normal GASTROINTESTINAL: soft, nontender, ND, no guarding MUSCULOSKELETAL: strength 5/5 throughout, head is normocephalic and atraumatic SKIN: warm and dry NEUROLOGIC: CN 2-12 grossly intact, no sensory deficit, normal cognition, normal speech, no tremor PSYCHIATRIC: alert cooperative Results & Data Results & Data Vital Signs (Past 12 Hours) Vital Signs Temp Pulse Pulse Resp BP Pulse Ox O2 Del Method 01/23/23 07:53 36.6 C 88 18 153/78 H 96 Room Air 01/23/23 03:26 36.3 C L 102 H 20 165/81 H 98 Room Air 01/23/23 00:30 94 H 01/22/23 23:52 36.5 C 96 H 18 165/65 H 98 Room Air Laboratory Results Short CBC 01/23/23 Range/Units 08:12 WBC 1.37 L (4.8-10.8) K/ul Hgb 15.4 D (14.0-18.0) g/dl Hct 43.1 (42.0-52.0) % Plt Count 283 (130-400) K/uL BMP 01/23/23 08:12 Sodium 139 Potassium 4.0 Chloride 108 H Carbon Dioxide 25 BUN 18 Creatinine 1.05 Glucose 131 H Calcium 8.7 Medications Administered Current Inpatient Medications Acetaminophen (Acetaminophen 325 Mg Tab) 650 mg PO Q4H PRN PRN Reason: Pain or Fever Stop: 02/20/23 21:06 Al Hydrox/Mg Hydrox/Simethicone (Aluminum/Magnesium Susp 30 Ml Udc) 15 ml PO Q4H PRN PRN Reason: Dyspepsia Stop: 02/20/23 21:06 Dextrose (Dextrose 50% 50 Ml Syringe) 25 - 50 ml IV UD PRN; Protocol PRN Reason: Hypoglycemia Protocol Stop: 02/20/23 21:06 Diclofenac Sodium (Diclofenac Sod 1% Gel 100 Gm Tube) 4 gm EXT Q6 PRN; Protocol PRN Reason: Pain Stop: 02/20/23 21:06 Docusate Sodium (Docusate Sodium 100 Mg Cap) 100 mg PO BID PRN PRN Reason: constipation Stop: 02/20/23 21:06 Enoxaparin Sodium (Enoxaparin Inj 30 Mg/0.3 Ml Syr) 30 mg SQ HS VINOD Stop: 02/20/23 21:06 Last Admin: 01/22/23 19:51 Dose: 30 mg Finasteride (Finasteride 5 Mg Tab) 5 mg PO QAM [facility] Stop: 02/22/23 08:59 Glucagon (Glucagon For Inj 1 Mg Vial) 1 mg SQ UD PRN; Protocol PRN Reason: Hypoglycemia Protocol Stop: 02/20/23 21:06 Glucose (Glucose 10 Tab/Tube) 4 - 8 tab PO UD PRN; Protocol PRN Reason: Hypoglycemia Treatment Stop: 02/20/23 21:06 Glucose (Glucose 40% Gel 15 Gm Tube) 15 - 30 gm PO UD PRN; Protocol PRN Reason: Hypoglycemia Protocol Stop: 02/20/23 21:06 Hydroxyzine HCl (Hydroxyzine Hcl 25 Mg Tab) 25 mg PO TID PRN PRN Reason: Itching Stop: 02/20/23 21:06 Last Admin: 01/22/23 13:56 Dose: 25 mg Cefepime HCl 2,000 mg/ Syringe 20 mls @ 5 mls/min IV Q12H VINOD; Protocol Stop: 01/24/23 05:59 Last Admin: 01/23/23 04:54 Dose: 5 mls/min Insulin Aspart (Insulin Aspart Per Unit Charge) 0 units SC ACHS [facility] Stop: 02/20/23 21:06 Last Admin: 01/23/23 08:41 Dose: Not Given Insulin Glargine (Lantus Per Unit Charge) 12 units SQ HS [facility]; Protocol Stop: 02/21/23 20:59 Last Admin: 01/22/23 21:34 Dose: 12 units Loratadine (Loratadine 10 Mg Tab) 10 mg PO DAILY [facility] Stop: 02/21/23 08:59 Last Admin: 01/22/23 08:18 Dose: 10 mg Magnesium Hydroxide (Magnesium Hydroxide Susp 30 Ml Udc) 30 ml PO Q12H PRN PRN Reason: Constipation Stop: 02/20/23 21:06 Melatonin (Melatonin 3 Mg Tab) 3 mg PO HS VINOD Stop: 02/20/23 21:06 Last Admin: 01/22/23 19:51 Dose: 3 mg Miscellaneous (Carbohydrates For Hypoglycemia ) 15 - 30 gm PO UD PRN PRN Reason: Hypoglycemia Protocol Stop: 02/20/23 21:06 Miscellaneous Information (Pharmacy Glycemic Mgmt Consult) 1 each N/A UD PRN PRN Reason: Consult Stop: 02/20/23 21:06 Ondansetron HCl (Ondansetron Inj 2 Mg/Ml 2 Ml Vial) 4 mg IV Q6H PRN PRN Reason: Nausea Stop: 02/20/23 21:06 Polyethylene Glycol (Polyethylene (Miralax) 17 Gm Pack) 17 gm PO DAILY PRN PRN Reason: Constipation Stop: 02/20/23 21:06 Tamsulosin HCl (Tamsulosin Hcl 0.4 Mg Cap) 0.4 mg PO QAM [facility] Stop: 02/22/23 08:59 Terazosin HCl (Terazosin Hcl 1 Mg Cap) 2 mg PO HS [facility] Stop: 02/22/23 20:59 Valacyclovir HCl (Valacyclovir Hcl 500 Mg Tablet) 1,000 mg PO BID VINOD Stop: 02/20/23 21:06 Last Admin: 01/22/23 19:52 Dose: 1,000 mg (8) Sacral decubitus ulcer Pressure injury stage: unspecified pressure injury stage Qualified Code(s): L89.159 - Pressure ulcer of sacral region, unspecified stage
[2023-01-23] MEDS: FINASTERIDE 5 MG TAB PO SCH (10:07)
--- NOTE | 2023-01-23 10:49 | Urology Consultation ---
Date of Consultation January 23, 2023 Assessment & Plan (1) Acute on chronic urinary retention: Mr. Daugherty is certainly not emptying his bladder to completion. I discussed with him how this could put him at risk for injury to the bladder or the kidneys could make any urinary tract infection more difficult to treat. I recommended catheter placement or CIC, however he was adamant that he did not want this done. He expressed understanding of the associated risks, but for the moment felt like he was emptying his bladder acceptably well. We discussed that there are possible outlet surgeries which could help him empty more to completion. He would potentially be interested in this, however I warned him that I would not do such a surgery in the setting of an acute UTI. For now I would recommend proceeding as follows: Continue empiric antibiotics Follow-up urine culture and treat if positive If patient becomes agreeable to it, would recommend Lopez catheter placement or CIC Continue tamsulosin and finasteride for now Ensure good bowel regimen No plan for surgical intervention at this time -ideally this would be coordinated as an outpatient with full work-up beforehand (2) BPH (benign prostatic hyperplasia): History of Present Illness Attending Physician: Digna Diop, History of Present Illness This is an 87-year-old male with history of neutropenia, hypotension, BPH, type 2 diabetes recently seen by urology for urinary retention. He was seen during a previous hospitalization in November, and a Lopez catheter was placed due to high volume PVRs. He was subsequently seen in the urology office on 01/21/2023 for voiding trial. Catheter was removed but he became unsteady, hypotensive and hyperglycemic while in the office and was then sent to the e mergency department. He was subsequently admitted to the hospital. In the hospital, he has again been found to have elevated PVRs. Urology was reconsulted for urinary retention. Mr. Daugherty is a fairly poor historian. At the time of my discussion with him, he did not think he was in the hospital and was very distractible. He did recall having BPH surgery years ago with Dr. Smith, and seem to have good insight into the fact that he is on medications for the prostate. He denies any recent issues with constipation. He feels like he is voiding fairly well, albeit frequently. I performed a bladder scan with values ranging from ~700 to 850 mL. He has been refusing clean intermittent catheterization or replacement of the catheter, and told me that he would continue to do so. He is also been refusing his medications, but we were able to get him to take tamsulosin and finasteride this morning. Lab work is notable for significant neutropenia (WBC 1.37). Hemoglobin is 15.4. Creatinine 1.05. Chloride 108, otherwise electrolytes within normal limits. Urinalysis from 01/22 demonstrated 3+ glucose, 3+ blood, 2+ leukocyte esterase, negative nitrates, 1+ bacteria raising concern for infection. Urine and blood cultures are pending. Allergies Allergy/AdvReac Type Severity Reaction Status Date / Time Penicillins Allergy Intermediate HIVES Verified 01/21/23 17:45 Sulfa (Sulfonamide Allergy Intermediate RASH Verified 01/21/23 17:45 Antibiotics) tree and shrub pollen Allergy Intermediate CONGESTION Verified 01/21/23 17:45 Home Medications Medication Instructions Recorded Confirmed Type azelastine 137 mcg (0.1 %) nasal 2 spray intranasal BID PRN 07/10/19 01/21/23 History spray aerosol Congestion atenolol 25 mg tablet 25 mg PO QAM 11/20/21 01/21/23 History valacyclovir 1 gram tablet 1,000 mg PO BID 11/20/21 01/21/23 History hydroxyzine HCl 25 mg tablet 25 mg PO TID PRN Itching 12/15/22 01/21/23 History terazosin 2 mg capsule 2 mg PO HS 12/15/22 01/21/23 History diclofenac sodium 1 % topical gel 4 g EXT Q6 PRN Pain #1 tube 12/30/22 01/21/23 Rx (Voltaren Arthritis Pain) docusate sodium 100 mg capsule 100 mg PO BID PRN constipation #60 12/30/22 01/21/23 Rx (Colace) caps flash glucose scanning reader #1 ea 12/30/22 01/21/23 Rx (FreeStyle Clementine 2 [place]) flash glucose sensor (FreeStyle #2 ea 12/30/22 01/21/23 Rx Clementine 2 Sensor kit) insulin glargine 100 unit/mL (3 15 unit (0.15 mL) subcut DAILY #15 12/30/22 01/21/23 Rx mL) subcutaneous pen (Lantus mL Solostar U-100 Insulin) melatonin 3 mg tablet 3 mg PO HS #10 tabs 12/30/22 01/21/23 Rx needle (disp) 32 gauge 32 gauge x #100 ea 12/30/22 01/21/23 Rx 5/16" polyethylene glycol 3350 17 gram 17 g PO DAILY PRN constipation #30 12/30/22 01/21/23 Rx oral powder packet (Miralax) ea loratadine 10 mg tablet (Claritin) 10 mg PO DAILY 01/21/23 01/21/23 History naproxen sodium 220 mg tablet 220 mg PO BID PRN Pain 01/21/23 01/21/23 History (Aleve) Patient History Medical History (Updated 01/23/23 @ 09:49 by Digna Diop, DO) Actinic keratosis BPH (benign prostatic hyperplasia) 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 Diverticulitis (07/23/14) Diverticulitis DM (diabetes mellitus) DVT (deep venous thrombosis) H/O prostatitis HTN (hypertension) Incomplete emptying of bladder (11/03/14) Left leg DVT PAF (paroxysmal atrial fibrillation) PMR (polymyalgia rheumatica) Postoperative urethral stricture Sensorineural hearing loss of both ears Urinary retention UTI (lower urinary tract infection) UTI (lower urinary tract infection) Surgical History History of back surgery History of knee surgery History of surgery Stomach, skin S/P TURP Family History Other Family history non-contributory Heart disease No family history of adverse response to anesthesia No family history of bleeding disorder Denies family history of Ovarian cancer Prostate cancer Myocardial infarction Breast cancer Colorectal cancer Social History Smoking Status: Former smoker Second Hand Exposure: No; Hx Alcohol Use: Yes Alcohol type: beer Hx Substance Use: No Preferred Language: Algerian Communication Ability: Effective Visual Impairment: No Limitations Hearing Ability: Hard of Hearing Tattoo And Body Artist Required: No Beliefs That Will Affect Care: None marital status: Current Living Situation: Spouse current occupational status: retired How many Children do You have: 3 Feels Safe at Home: Yes Childhood Exposure to Second-Hand Smoke: No Dental Care, Regularly: Yes Physical Activity Frequency: 3-4 Times per Week Seatbelt Use: always Sunscreen Use: No Assistive Devices: Cane and Walker Review of Systems Review of Systems: 12 point review of systems negative except for otherwise indicated. Physical Exam Physical Exam: Well-developed, NAD, easily distractible Eyes: + anicteric sclerae; pupils not irregular Respiratory: normal respiratory effort; no respiratory distress, does not use accessory muscles and no cough Cardiovascular: well perfused Gastrointestinal (Abdomen): Inspection/Auscultation: abdomen normal to inspection and + abdomen distended (Palpable bladder in the lower midline) Musculoskeletal: Extremities: extremities normal to inspection Skin: normal turgor; no rashes and no lesions Neurologic: moves all extremities and awake Psychiatric: Orientation: alert and oriented x 3 Results & Data Vital Signs (Past 12 Hours) Vital Signs Temp Pulse Pulse Resp BP Pulse Ox O2 Del Method 01/23/23 07:53 36.6 C 88 18 153/78 H 96 Room Air 01/23/23 03:26 36.3 C L 102 H 20 165/81 H 98 Room Air 01/23/23 00:30 94 H 01/22/23 23:52 36.5 C 96 H 18 165/65 H 98 Room Air PG Care Time/CCT Total # of Minutes Spent Total Time Spent with Patient: Total time spent is greater than 50% in coordination of care (as documented) at patient's floor/unit and/or counseling patient: Coding Level of Care Code 90831 INT INP/OBS CARE 2/55MIN Diagnoses Acute on chronic urinary retention R33.9 BPH (benign prostatic hyperplasia) N40.0
[2023-01-23] MEDS: valACYclovir HCL 500 MG TABLET PO SCH ×2 (12:17→20:56)
[2023-01-23] MEDS: LORATADINE 10 MG TAB PO SCH (12:17)
[2023-01-23] MEDS ORDERED: LIDOCAINE 2% JELLY 5 ML TUBE EXT ONE (13:58)
[2023-01-23] MEDS: TERAZOSIN 2 MG PO SCH (20:55)
[2023-01-23] MEDS: ENOXAPARIN INJ 30 MG/0.3 ML SYR SQ SCH (20:56)
[2023-01-23] MEDS: MELATONIN 3 MG TAB PO SCH (20:57)
[2023-01-23] MEDS ORDERED: TERAZOSIN HCL 1 MG CAP PO SCH (21:00)
[2023-01-23] MEDS: LANTUS PER UNIT CHARGE SQ SCH (21:12)
[2023-01-24 06:25] LABS: BUN Creatinine Ratio 19.6 (10-20); Creatinine Clr Calc Pharmacy 48.6 ml/min; Est GFR (Non-African American) 69.9 ml/min; Potassium 4.2 mmol/L (3.5-5.1)
[2023-01-24 07:21] LABS: Basophils # (auto) 0.01 K/uL (0-0.2); Basophils % (auto) 0.9 %; Eosinophils # (auto) 0.07 K/uL (0-0.50); Hematocrit (blood only) 33.7 % (42.0-52.0); Hemoglobin 12.3 g/dl (14.0-18.0); Lymphocytes # (auto) 0.67 K/uL (1.2-3.4); Lymphocytes % (auto) 57.3 %; Mean Corpuscular Hemoglobin 34.2 pg (25.0-34.0); Mean Corpuscular Hgb Conc 36.5 g/dL (32.0-36.0); Mean Corpuscular Volume 93.6 fL (80.0-100.0); Mean Platelet Volume 8.6 fL (9.4-12.4); Monocytes # (auto) 0.06 K/uL (0.11-0.59); Monocytes % (auto) 5.1 %; Neutrophils # (auto) 0.36 K/uL (1.40-6.50); Neutrophils % (auto) 30.7 %; Platelet Count 205 K/uL (130-400); RBC Morphology Unremarkable; RDW Coefficient of Variation 12.8 % (11.5-14.5); RDW Standard Deviation 44.5 fL (36.4-46.3); White Blood Count 1.17 K/ul (4.8-10.8)
--- NOTE | 2023-01-24 07:32 | Oncology Consultation ---
Date of Consultation January 24, 2023 Assessment & Plan (1) Severe neutropenia: Plan Elderly gentleman with chronic leukopenia who was admitted for hypotension thought to possibly be due to urosepsis. Hematology was consulted for leukopenia with severe neutropenia. He has no significant anemia or thrombocytopenia. Review of his labs indicate that patient has been leukopenic since 2019. Although it is not very common to see isolated leukopenia/neutropenia and hematologic malignancies, the chronicity of his leukopenia does raise concern for underlying MDS. Vitamin B12 and folate levels which are checked today are within normal limits with copper level pending. Given worsening chronic leukopenia with severe neutropenia, would recommend obtaining bone marrow biopsy to evaluate for hematologic malignancy such as MDS/acute leukemia.Discussed this with patient and his who agreed with the plan. History of Present Illness Reason for Consultation: Leukopenia/neutropenia Attending Physician: Digna Diop, History of Present Illness Mr. Daugherty is an 87-year-old gentleman with history of atrial fibrillation, hypertension, gout, hyperlipidemia, right bundle branch block and chronic leukopenia. Patient was admitted to [facility] for hypotension and hypoglycemia. Chest x-ray on 01/21/2023 did not show any evidence of acute process. Preliminary blood cultures have been negative so far. Urine culture revealed probable Enterococcus lactobacillus. He was initially placed on IV cefepime. Hematology was consulted for chronic leukopenia with white cell count of 1.17 and severe neutropenia with ANC of 0.36. Per discussion with patient's , he had been referred to hematology for chronic leukopenia and was scheduled for an appointment last month which he missed. Peripheral smear review by pathology revealed normochromic normocytic red blood cells, rare blasts representing less than 1% of nucleated cells and rare PMN leukocytes. Patient appears to be a very poor historian. He however denies fever, chills, night sweats, weight loss or any other issues. Allergies Allergy/AdvReac Type Severity Reaction Status Date / Time Penicillins Allergy Intermediate HIVES Verified 01/21/23 17:45 Sulfa (Sulfonamide Allergy Intermediate RASH Verified 01/21/23 17:45 Antibiotics) tree and shrub pollen Allergy Intermediate CONGESTION Verified 01/21/23 17:45 Home Medications Medication Instructions Recorded Confirmed Type azelastine 137 mcg (0.1 %) nasal 2 spray intranasal BID PRN 07/10/19 01/21/23 History spray aerosol Congestion atenolol 25 mg tablet 25 mg PO QAM 11/20/21 01/21/23 History valacyclovir 1 gram tablet 1,000 mg PO BID 11/20/21 01/21/23 History hydroxyzine HCl 25 mg tablet 25 mg PO TID PRN Itching 12/15/22 01/21/23 History terazosin 2 mg capsule 4 mg PO HS 12/15/22 01/23/23 History diclofenac sodium 1 % topical gel 4 g EXT Q6 PRN Pain #1 tube 12/30/22 01/21/23 Rx (Voltaren Arthritis Pain) docusate sodium 100 mg capsule 100 mg PO BID PRN constipation #60 12/30/22 01/21/23 Rx (Colace) caps flash glucose scanning reader #1 ea 12/30/22 01/21/23 Rx (FreeStyle Clementine 2 [place]) flash glucose sensor (FreeStyle #2 ea 12/30/22 01/21/23 Rx Clementine 2 Sensor kit) insulin glargine 100 unit/mL (3 15 unit (0.15 mL) subcut DAILY #15 12/30/22 01/21/23 Rx mL) subcutaneous pen (Lantus mL Solostar U-100 Insulin) melatonin 3 mg tablet 3 mg PO HS #10 tabs 12/30/22 01/21/23 Rx needle (disp) 32 gauge 32 gauge x #100 ea 12/30/22 01/21/23 Rx 5/16" polyethylene glycol 3350 17 gram 17 g PO DAILY PRN constipation #30 12/30/22 01/21/23 Rx oral powder packet (Miralax) ea loratadine 10 mg tablet (Claritin) 10 mg PO DAILY 01/21/23 01/21/23 History naproxen sodium 220 mg tablet 220 mg PO BID PRN Pain 01/21/23 01/21/23 History (Aleve) Patient History Medical History (Updated 01/23/23 @ 15:17 by Digna Diop DO) Actinic keratosis BPH (benign prostatic hyperplasia) 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 Diverticulitis (07/23/14) Diverticulitis DM (diabetes mellitus) DVT (deep venous thrombosis) H/O prostatitis HTN (hypertension) Incomplete emptying of bladder (11/03/14) Left leg DVT PAF (paroxysmal atrial fibrillation) PMR (polymyalgia rheumatica) Postoperative urethral stricture Sensorineural hearing loss of both ears Urinary retention UTI (lower urinary tract infection) UTI (lower urinary tract infection) Surgical History History of back surgery History of knee surgery History of surgery Stomach, skin S/P TURP Family History Other Family history non-contributory Heart disease No family history of adverse response to anesthesia No family history of bleeding disorder Denies family history of Ovarian cancer Prostate cancer Myocardial infarction Breast cancer Colorectal cancer Social History Smoking Status: Former smoker Second Hand Exposure: No; Hx Alcohol Use: Yes Alcohol type: beer Hx Substance Use: No Preferred Language: Slovenian Communication Ability: Effective Visual Impairment: No Limitations Hearing Ability: Hard of Hearing Chief Projectionist Required: No Beliefs That Will Affect Care: None marital status: Current Living Situation: Spouse current occupational status: retired How many Children do You have: 3 Feels Safe at Home: Yes Childhood Exposure to Second-Hand Smoke: No Dental Care, Regularly: Yes Physical Activity Frequency: 3-4 Times per Week Seatbelt Use: always Sunscreen Use: No Assistive Devices: Cane and Walker Review of Systems Review of Systems: All systems reviewed & are unremarkable except as noted in Subjective Results & Data Vital Signs (Past 12 Hours) Vital Signs Temp Pulse Resp BP Pulse Ox O2 Del Method 01/24/23 07:19 36.5 C 103 H 18 128/68 98 Room Air 01/23/23 20:22 36.7 C 100 H 16 126/67 97 Room Air
--- NOTE | 2023-01-24 08:11 | Hospitalist Progress Note ---
Date of Service January 24, 2023 Assessment & Plan (1) Sepsis: (2) Hypotension: (3) Neutropenia: (4) Acute on chronic urinary retention: (5) DM (diabetes mellitus): (6) BPH (benign prostatic hyperplasia): (7) PAF (paroxysmal atrial fibrillation): Plan: h/o single event controlled in sinus on combination of atenolol and flecainide. He reports not using flecainide for months. This previous AF event occurred in the setting of acute illness and high dose corticosteroid use for PMR in 2005. Has had no recurrence of AF and followed with [facility]. Remains on atenolol and losartan at reduced doses. No AC indicated. (8) Sacral decubitus ulcer: Plan This is an 87-year-old male who has significant past medical history of PAF, HTN, RBBB, first-degree AV block, hyperlipidemia, gout, BPH with obstructive symptoms and neutropenia who presents to ED secondary to hypotension and hyperglycemia. Pt was at urology OV for hosp f/u and voiding trial. Vazquez cath removed. Post cath removal pt become sweaty, diaphoretic and pale. SBPs in 60s. 5 min later SBP in 80s. BSG in 300s. EMS summoned. He received 2L of IVF, 1L en route and 1L in ED. BP improved. Pt has stopped his outpatient losartan due to lower BP. Continues to take atenolol. States previously has high BP but has lost significant amount of weight. Hypotension possible UTI/sepsis given profound neutropenia will empirically treat for Sepsis in setting of hypotension with IV cefepime neutropenic precautions afebrile, possible CAUTI? Urine culture pending but there is some growth on plate per micro lab; UA with 1+ bacteriuria, turbid appearance, >30 WBCs, +RBCs and evidence of calcium oxalate crystals. Continues on cefepime for now pending urine culture. low BP may have been related to medications or situational given he was having manipulation of a urinary catheter in the office, which is stressful for him He was declining urinary catheter reinsertion despite elevated post void residuals on bladder scan that are 500-700cc Consulting urology for assistance and will restart his terazosin which was held on admission Will also add proscar for help with LUTS BPH w/ obs sx urinary retention follows [facility] [place], vazquez removed in clinic on day of admission persistent urinary retention initially terazosin held in setting of hypotension This is in low supply at the hospital today, so gave flomax this am, started proscar Pt brought his own supply of terazosin, will give this instead Finally amenable to insertion of a vazquez catheter which was successfully placed. 4/2: doing well with vazquez in place. Gave small amount of IVF for likely overdiuresis that is phsyiologic with prolonged urinary retention Neutropenia Lost 20 lbs in last 12 months per outpatient records review. Per outpatient record review, neutropenia likely developed in the last 6 months. Peripheral smear performed this admission with rare blasts noted, pt did have heme/onc eval as OP on 01/11 scheduled for eval of new neutropenia but this was cancelled, will need to be rescheduled Will consult hematology now Given weight loss, ordered CT c/a/p Also, patient has sacral ulcer wounds that were POA. Ulcer wounds look clean and not infected. Likely source of infection above is urinary but neutropenia is more chronic than just this infection 4/2: Per Hematology will plan for bone marrow biopsy in am. I discussed this wtih the patient who was agreeable. Sacral ulcerations-unstageable Wound care nurse assessed with silver and foam dressing applied, continue to stay off this site. T2DM with hyperglycemia uncontrolled with A1C>8, lantus/novolog per protocol Recently diagnosed with DMII in Oct. Initially placed on metformin and shortly afterwards Jardiance was added. Patient presented with anion gap metabolic acidosis with a glucose of 307, which may have been metformin induced lactic acidosis. The lactate was not checked at that time. The addition of Jardiance may not be ideal in this patient either because of his ongoing urinary retention and recent UTIs. Would not continue with this option for glycemic control for this reason either. We also want to avoid the use of SGLT2 inhibitors in patients with frequent bacterial UTIs or yeast infections, low bone density and high risk for falls/fractures, and factors predisposing them for DKA. Per guidelines from the [place] [employer], his glycemic target give his older age and shorter life expectancy should be A1C <8. His A1C is currently 8.2. With this information, a good option for him at discharge may be a low dose glipizide 2.5mg PO once or twice daily. Would stop insulin at discharge. glycemic pharmacy currently managing and he is on basal bolus insulin in house. pt was d/c on units of lantus daily from most recent admission, and was hyperglycemic at home and seen just prior to admission Will adjust this at D/c (see above plan) close f/u with [facility] clinic recommended for further titration to goal effect. hx of HTN losartan has been on hold due to lower BP, continue to hold while restarting. terazosin originally held in setting of hypotension, but restarting khalif in setting of urinary retention that is persistent Dvt ppx: SQ Lovenox Dispo: admit to med tele, consult PT/OT PCP: Awilda Baron FULL CODE I spent a total [id number] coordinating, documenting, and providing care for this patient excluding time spent in the performance of separately billed services Digna Diop DO [facility] Hospitalist Admission and Anticipated Discharge Date Admission Date: January 21, 2023 Subjective 87 yo M admitted for hypotension, presumed sepsis 2/2 UTI feeling well today denies fever, chills, abdominal discomfort doing well with the catheter in place. HR elevated and noted home atenolol was held so this was restarted. Discussed case with Hematology who will get BM biopsy on him tomorrow He verbalized understanding of this and is fine with that We discussed the latest update on his urine studies. Review of Systems Review of Systems: All systems were reviewed and negative except as indicated on HPI above. Physical Exam Physical Exam: CONSTITUTIONAL: WNWD, vitals as above, generally well-appearing EYES: normal conjunctivae, no scleral icterus ENT: external ear and nose normal, MMM NECK: trachea midline RESPIRATORY: clear to auscultation bilaterally, no crackles, rales or wheezes, normal respiratory effort CARDIOVASCULAR: regular rate and rhythm, S1 and 2 heard without murmurs, gallops or rubs, no JVD, no peripheral edema CHEST: inspection of chest was normal GASTROINTESTINAL: soft, nontender, ND, no guarding : vazquez in place. MUSCULOSKELETAL: strength 5/5 throughout, head is normocephalic and atraumatic SKIN: warm and dry NEUROLOGIC: CN 2-12 grossly intact, no sensory deficit, normal cognition, normal speech, no tremor PSYCHIATRIC: alert cooperative Results & Data Results & Data Vital Signs (Past 12 Hours) Vital Signs Temp Pulse Resp BP Pulse Ox O2 Del Method 01/24/23 07:19 36.5 C 103 H 18 128/68 98 Room Air 01/23/23 20:22 36.7 C 100 H 16 126/67 97 Room Air Laboratory Results Short CBC 01/23/23 01/24/23 Range/Units 08:12 05:40 WBC 1.37 L 1.17 L (4.8-10.8) K/ul Hgb 15.4 D 12.3 L D (14.0-18.0) g/dl Hct 43.1 33.7 L (42.0-52.0) % Plt Count 283 205 (130-400) K/uL BMP 01/23/23 01/24/23 08:12 05:40 Sodium 139 136 Potassium 4.0 4.2 Chloride 108 H 107 Carbon Dioxide 25 23 BUN 18 19 Creatinine 1.05 0.97 Glucose 131 H 154 H Calcium 8.7 8.0 L Medications Administered Current Inpatient Medications Acetaminophen (Acetaminophen 325 Mg Tab) 650 mg PO Q4H PRN PRN Reason: Pain or Fever Stop: 02/20/23 21:06 Al Hydrox/Mg Hydrox/Simethicone (Aluminum/Magnesium Susp 30 Ml Udc) 15 ml PO Q4H PRN PRN Reason: Dyspepsia Stop: 02/20/23 21:06 Dextrose (Dextrose 50% 50 Ml Syringe) 25 - 50 ml IV UD PRN; Protocol PRN Reason: Hypoglycemia Protocol Stop: 02/20/23 21:06 Diclofenac Sodium (Diclofenac Sod 1% Gel 100 Gm Tube) 4 gm EXT Q6 PRN; Protocol PRN Reason: Pain Stop: 02/20/23 21:06 Docusate Sodium (Docusate Sodium 100 Mg Cap) 100 mg PO BID PRN PRN Reason: constipation Stop: 02/20/23 21:06 Enoxaparin Sodium (Enoxaparin Inj 30 Mg/0.3 Ml Syr) 30 mg SQ HS VINOD Stop: 02/20/23 21:06 Last Admin: 01/23/23 20:56 Dose: 30 mg Finasteride (Finasteride 5 Mg Tab) 5 mg PO QAM VINOD Stop: 02/22/23 08:59 Last Admin: 01/23/23 10:07 Dose: 5 mg Glucagon (Glucagon For Inj 1 Mg Vial) 1 mg SQ UD PRN; Protocol PRN Reason: Hypoglycemia Protocol Stop: 02/20/23 21:06 Glucose (Glucose 10 Tab/Tube) 4 - 8 tab PO UD PRN; Protocol PRN Reason: Hypoglycemia Treatment Stop: 02/20/23 21:06 Glucose (Glucose 40% Gel 15 Gm Tube) 15 - 30 gm PO UD PRN; Protocol PRN Reason: Hypoglycemia Protocol Stop: 02/20/23 21:06 Hydroxyzine HCl (Hydroxyzine Hcl 25 Mg Tab) 25 mg PO TID PRN PRN Reason: Itching Stop: 02/20/23 21:06 Last Admin: 01/22/23 13:56 Dose: 25 mg Sodium Chloride (Nss) 500 mls @ 125 mls/hr IV .Q4H VINOD Stop: 01/24/23 12:14 Insulin Aspart (Insulin Aspart Per Unit Charge) 0 units SC ACHS [facility] Stop: 02/20/23 21:06 Last Admin: 01/23/23 21:11 Dose: Not Given Insulin Glargine (Lantus Per Unit Charge) 12 units SQ HS [facility] Stop: 02/21/23 20:59 Last Admin: 01/23/23 21:12 Dose: 12 units Loratadine (Loratadine 10 Mg Tab) 10 mg PO DAILY [facility] Stop: 02/21/23 08:59 Last Admin: 01/23/23 12:17 Dose: Not Given Magnesium Hydroxide (Magnesium Hydroxide Susp 30 Ml Udc) 30 ml PO Q12H PRN PRN Reason: Constipation Stop: 02/20/23 21:06 Melatonin (Melatonin 3 Mg Tab) 3 mg PO HS [facility] Stop: 02/20/23 21:06 Last Admin: 01/23/23 20:57 Dose: 3 mg Miscellaneous (Carbohydrates For Hypoglycemia ) 15 - 30 gm PO UD PRN PRN Reason: Hypoglycemia Protocol Stop: 02/20/23 21:06 Miscellaneous Information (Pharmacy Glycemic Mgmt Consult) 1 each N/A UD PRN PRN Reason: Consult Stop: 02/20/23 21:06 Terazosin 2 Mg Cap: Non-Formulary Patient's Own Med 2 each PO HS [facility] Stop: 02/22/23 20:59 Last Admin: 01/23/23 20:55 Dose: 2 each Ondansetron HCl (Ondansetron Inj 2 Mg/Ml 2 Ml Vial) 4 mg IV Q6H PRN PRN Reason: Nausea Stop: 02/20/23 21:06 Polyethylene Glycol (Polyethylene (Miralax) 17 Gm Pack) 17 gm PO DAILY PRN PRN Reason: Constipation Stop: 02/20/23 21:06 Valacyclovir HCl (Valacyclovir Hcl 500 Mg Tablet) 1,000 mg PO BID VINOD Stop: 02/20/23 21:06 Last Admin: 01/23/23 20:56 Dose: 1,000 mg (8) Sacral decubitus ulcer Pressure injury stage: unspecified pressure injury stage Qualified Code(s): L89.159 - Pressure ulcer of sacral region, unspecified stage
[2023-01-24] MEDS ORDERED: SODIUM CHLORIDE 0.9% 500 ML IV SCH (08:15)
[2023-01-24] MEDS: LORATADINE 10 MG TAB PO SCH (08:40)
[2023-01-24] MEDS: INSULIN ASPART PER UNIT CHARGE SC SCH ×4 (08:41→21:46)
[2023-01-24] MEDS: FINASTERIDE 5 MG TAB PO SCH (08:41)
[2023-01-24] MEDS: valACYclovir HCL 500 MG TABLET PO SCH ×2 (08:41→21:49)
--- NOTE | 2023-01-24 09:32 | Urology Progress Note ---
Date of Service January 24, 2023 Assessment & Plan (1) Acute on chronic urinary retention: Plan: Urinary retention currently managed with indwelling Lopez catheter. I would recommend this stay in place for the next 1 to 2 weeks, especially while treating urinary tract infection. He should continue terazosin and finasteride upon discharge. We will coordinate another outpatient visit for voiding trial, and at that time could discuss further intervention such as outlet procedure. We briefly discussed CIC as an option, but he was unwilling to do this. (2) Sepsis: Plan: Urine cultures showing preliminary Enterococcus and lactobacillus. He has been on cefepime. Antibiotic coverage can be tailored as culture data becomes available. Would recommend maintaining catheter at least for the duration of treatment of his infection. Plan No plan for operative intervention at this time Maintain Lopez catheter Continue terazosin and finasteride Urology will coordinate outpatient visit for repeat voiding trial and discuss possible long-term strategies to manage urinary retention Urology will sign off for now, please call with any questions or concerns Admission and Anticipated Discharge Date Admission Date: January 21, 2023 Subjective Feeling okay, eventually consented to catheter placement on 01/23/2023 with family support Has been taking terazosin and finasteride Denies any fevers or chills Tolerating the catheter without any issues Remains neutropenic (WBC 1.17). Hemoglobin somewhat decreased (15.4 down to 12.3), no obvious bleeding. Creatinine 0.97 Urine culture showing probable Enterococcus and lactobacillus, sensitivities pending. Blood cultures negative. He has been on cefepime Review of Systems Review of Systems: 12 point review of systems negative except for otherwise indicated. Physical Exam Physical Exam: Well-appearing, NAD Respiratory: Breathing comfortably on room air, no audible wheezing Psychiatric: Mental status much clearer than yesterday Genitourinary: Lopez catheter in position draining clear yellow urine. Results & Data Vital Signs (Past 12 Hours) Vital Signs Temp Pulse Resp BP Pulse Ox O2 Del Method 01/24/23 07:19 36.5 C 103 H 18 128/68 98 Room Air PG Care Time/CCT Total # of Minutes Spent Total Time Spent with Patient: Total time spent is greater than 50% in coordination of care (as documented) at patient's floor/unit and/or counseling patient: Coding Level of Care Code 49053 SUB INP/OBS CARE 11/18MIN Diagnoses Acute on chronic urinary retention R33.9 Sepsis A41.9
[2023-01-24] MEDS: ATENOLOL 25 MG TABLET PO SCH (11:53)
[2023-01-24] MEDS: ENOXAPARIN INJ 30 MG/0.3 ML SYR SQ SCH (21:47)
[2023-01-24] MEDS: LANTUS PER UNIT CHARGE SQ SCH (21:47)
[2023-01-24] MEDS: TERAZOSIN 2 MG PO SCH (21:48)
[2023-01-24] MEDS: MELATONIN 3 MG TAB PO SCH (21:48)
--- NOTE | 2023-01-24 23:21 | CT Scan Report ---
Exam(s): CT CHEST Without Contrast EXAM: CT Chest Without Intravenous Contrast CLINICAL HISTORY: Reason for exam: profound weight loss >20 lbs, new neutropenia. TECHNIQUE: Axial computed tomography images of the chest without intravenous contrast. CTDI is 5.85 mGy and DLP is 290.07 mGy-cm. Automated exposure control was utilized for the study. A dose lowering technique was utilized adhering to the principles of ALARA. COMPARISON: No relevant prior studies available. FINDINGS: Lungs: Unremarkable. No pulmonary mass or nodule. Pleural space: Trace bilateral pleural effusions. No focal infiltrate, pneumothorax, or pulmonary contusion. Heart: Mild pericardial effusion. No significant coronary artery calcifications. Bones/joints: Degenerative changes of the spine. No acute fracture. No dislocation. Soft tissues: Unremarkable. Vasculature: Atherosclerotic changes of the aorta. No thoracic aortic aneurysm. Lymph nodes: Unremarkable. No enlarged lymph nodes. IMPRESSION: 1. No pulmonary mass or nodule. 2. Mild pericardial effusion. 3. Trace bilateral pleural effusions. No focal infiltrate, pneumothorax, or pulmonary contusion. Electronically signed by: Michael Villagran MD 01/24/23 23:20 PM
--- NOTE | 2023-01-24 23:22 | CT Scan Report ---
Exam(s): CT ABDOMEN + PELVIS Without Contrast EXAM: CT Abdomen and Pelvis Without Intravenous Contrast CLINICAL HISTORY: Reason for exam: profound weight loss >20 lbs, new neutropenia. TECHNIQUE: Axial computed tomography images of the abdomen and pelvis without intravenous contrast. CTDI is 7.1 mGy and DLP is 242.25 mGy-cm. Automated exposure control was utilized for the study. A dose lowering technique was utilized adhering to the principles of ALARA. COMPARISON: No relevant prior studies available. FINDINGS: Lung bases: Unremarkable. No mass. No consolidation. ABDOMEN: Liver: Unremarkable. Gallbladder and bile ducts: Unremarkable. No calcified stones. No ductal dilation. Pancreas: Diffuse calcifications of the pancreas, consistent with sequelae of chronic pancreatitis. No ductal dilation. Spleen: Unremarkable. No splenomegaly. Adrenals: Unremarkable. No mass. Kidneys and ureters: Mild renal atrophy. No obstructing stones. No hydronephrosis. Stomach and bowel: Mild fluid-filled small bowel with mild wall thickening, correlate for mild enteritis. No obstruction. PELVIS: Appendix: No findings to suggest acute appendicitis. Bladder: Lopez catheter terminates in the urinary bladder. No stones. Reproductive: Unremarkable as visualized. ABDOMEN and PELVIS: Intraperitoneal space: Unremarkable. No free air. No significant fluid collection. Bones/joints: Degenerative changes of the spine. No acute fracture. No dislocation. Soft tissues: Unremarkable. Vasculature: Atherosclerotic changes of the aorta. No abdominal aortic aneurysm. Lymph nodes: Unremarkable. No enlarged lymph nodes. IMPRESSION: 1. Diffuse calcifications of the pancreas, consistent with sequelae of chronic pancreatitis. 2. Mild fluid-filled small bowel with mild wall thickening, correlate for mild enteritis. Electronically signed by: Michael Villagran MD 01/24/23 23:21 PM
[2023-01-25 06:25] LABS: Hematocrit (blood only) 32.9 % (42.0-52.0); Hemoglobin 11.8 g/dl (14.0-18.0); Mean Corpuscular Hgb Conc 35.9 g/dL (32.0-36.0); Mean Corpuscular Volume 94.8 fL (80.0-100.0); Mean Platelet Volume 8.6 fL (9.4-12.4); Platelet Count 203 K/uL (130-400); RDW Coefficient of Variation 12.9 % (11.5-14.5); RDW Standard Deviation 45.1 fL (36.4-46.3); Red Blood Count 3.47 M/uL (4.70-6.10); White Blood Count 1.16 K/ul (4.8-10.8)
[2023-01-25 07:56] LABS: ALC (manual) 0.73 K/uL (1.2-3.4); ANC (manual) 0.31 K/uL (1.4-6.5); Basophils # (manual) 0.02 K/uL (0-0.2); Basophils % (manual) 2 %; Blast # (manual) 0.01 K/uL (0-0); Blast Cells % (manual) 1 %; Eosinophils # (manual) 0.05 K/uL (0-0.50); Eosinophils % (manual) 4 %; Lymphocytes # (manual) 0.73 K/uL (1.2-3.4); Lymphocytes % (manual) 63 %; Monocytes # (manual) 0.03 K/uL (0.11-0.59); Monocytes % (manual) 3 %; Neutrophils # (manual) 0.31 K/uL (1.40-6.50); Neutrophils % (manual) 27 %
[2023-01-25] MEDS ORDERED: VANCOMYCIN CONSULT ACTIVE PRN (08:00)
[2023-01-25] MEDS ORDERED: VANCOMYCIN HCL 1,000 MG in SODIUM CHLORIDE 0.9% 250 ML IV STA (08:00)
[2023-01-25] MEDS: valACYclovir HCL 500 MG TABLET PO SCH ×2 (08:23→21:12)
[2023-01-25] MEDS: ATENOLOL 25 MG TABLET PO SCH (08:24)
[2023-01-25] MEDS: FINASTERIDE 5 MG TAB PO SCH (08:24)
[2023-01-25] MEDS: LORATADINE 10 MG TAB PO SCH (08:24)
[2023-01-25] MEDS: INSULIN ASPART PER UNIT CHARGE SC SCH ×3 (08:26→17:55)
[2023-01-25] MEDS ORDERED: VANCOMYCIN HCL 1,500 MG in SODIUM CHLORIDE 0.9% 500 ML IV ONE (08:30)
--- NOTE | 2023-01-25 09:16 | Pharmacy Report ---
Pharmacy PK ABX Note - Date of Service January 25, 2023 - Assessment and Plan Assessment 87 year old M receiving VANCOMYCIN for treatment of COMPLICATED UTI. Pertinent microbiologic data includes: URINE CULTURE culture growing E. FAECALIS sensitive to vancomycin (ADDY=1), daptomycin and PCN (patient has PCN allergy/Hives). Day # 1/? of antimicrobial therapy. Plan Vancomycin * Loading dose: 1500 mg IV x 1 * Maintenance dose: 1250 mg IV every24 hours * Regimen is predicted to achieve target AUC/ADDY of 400-600 mg/L.hr * Random level ordered for: 01/27/23 with AM labs Pharmacy will continue to follow and will adjust dose/frequency as necessary. Thank you. Pharmacy has transitioned to AUC monitoring for vancomycin. AUC/ADDY is the preferred PK/PD target and is associated with decreased risk of nephrotoxicity compared to traditional trough targets.
--- NOTE | 2023-01-25 10:10 | Hospitalist Progress Note ---
Date of Service January 25, 2023 Assessment & Plan (1) Sepsis: (2) Hypotension: (3) Neutropenia: (4) Acute on chronic urinary retention: (5) DM (diabetes mellitus): (6) BPH (benign prostatic hyperplasia): (7) PAF (paroxysmal atrial fibrillation): Plan: h/o single event controlled in sinus on combination of atenolol and flecainide. He reports not using flecainide for months. This previous AF event occurred in the setting of acute illness and high dose corticosteroid use for PMR in 2005. Has had no recurrence of AF and followed with [facility]. Remains on atenolol and losartan at reduced doses. No AC indicated. (8) Sacral decubitus ulcer: Plan This is an 87-year-old male who has significant past medical history of PAF, HTN, RBBB, first-degree AV block, hyperlipidemia, gout, BPH with obstructive symptoms and neutropenia who presents to ED secondary to hypotension and hyperglycemia. Pt was at urology OV for hosp f/u and voiding trial. Vazquez cath removed. Post cath removal pt become sweaty, diaphoretic and pale. SBPs in 60s. 5 min later SBP in 80s. BSG in 300s. EMS summoned. He received 2L of IVF, 1L en route and 1L in ED. BP improved. Pt has stopped his outpatient losartan due to lower BP. Continues to take atenolol. States previously has high BP but has lost significant amount of weight. Hypotension possible UTI/sepsis given profound neutropenia will empirically treat for Sepsis in setting of hypotension with IV cefepime neutropenic precautions afebrile, possible CAUTI? Urine culture pending but there is some growth on plate per micro lab; UA with 1+ bacteriuria, turbid appearance, >30 WBCs, +RBCs and evidence of calcium oxalate crystals. Continues on cefepime for now pending urine culture. low BP may have been related to medications or situational given he was having manipulation of a urinary catheter in the office, which is stressful for him He was declining urinary catheter reinsertion despite elevated post void residuals on bladder scan that are 500-700cc Consulted urology for assistance and restarted his terazosin which was held on admission Will also add proscar for help with LUTS 4/3: cont terazosin, proscar and vazquez catheter for 1-2 weeks with followup for TOV in the office. UCx returned with E faecalis. Transitioned cefepime to Vancomycin pending ID recs. Will start Linezolid BID x short course. BPH w/ obs sx urinary retention follows [facility], vazquez removed in clinic on day of admission persistent urinary retention initially terazosin held in setting of hypotension This is in low supply at the hospital today, so gave flomax this am, started proscar Pt brought his own supply of terazosin, will give this instead Finally amenable to insertion of a vazquez catheter which was successfully placed. 4/2: doing well with vazquez in place. Gave small amount of IVF for likely overdiuresis that is physiologic with prolonged urinary retention Neutropenia Lost 20 lbs in last 12 months per outpatient records review. Per outpatient record review, neutropenia likely developed in the last 6 months. Peripheral smear performed this admission with rare blasts noted, pt did have heme/onc eval as OP on 01/11 scheduled for eval of new neutropenia but this was cancelled, will need to be rescheduled Heme Onc consulted and recommended BM biopsy Given weight loss, ordered CT c/a/p-no clear mass of concern but he did have calcifications of the pancreas. Also, patient has sacral ulcer wounds that were POA. Ulcer wounds look clean and not infected. Likely source of infection above is urinary but neutropenia is more chronic than just this infection 4/2: Per Hematology will plan for bone marrow biopsy in am. 43: Neutropenia persists; BM performed and awaiting results. Sacral ulcerations-unstageable Wound care nurse assessed with silver and foam dressing applied, continue to stay off this site. T2DM with hyperglycemia uncontrolled with A1C>8, lantus/novolog per protocol Recently diagnosed with DMII in Oct. Initially placed on metformin and shortly afterwards Jardiance was added. Patient presented with anion gap metabolic acidosis with a glucose of 307, which may have been metformin induced lactic acidosis. The lactate was not checked at that time. The addition of Jardiance may not be ideal in this patient either because of his ongoing urinary retention and recent UTIs. Would not continue with this option for glycemic control for this reason either. We also want to avoid the use of SGLT2 inhibitors in patients with frequent bacterial UTIs or yeast infections, low bone density and high risk for falls/fractures, and factors predisposing them for DKA. Per guidelines from the [employer], his glycemic target give his older age and shorter life expectancy should be A1C <8. His A1C is currently 8.2. With this information, a good option for him at discharge may be a low dose glipizide 2.5mg PO once or twice daily. Would stop insulin at discharge. glycemic pharmacy currently managing and he is on basal bolus insulin in house. pt was d/c on 15 units of lantus daily from most recent admission, and was hyperglycemic at home and seen just prior to admission Will adjust this at D/c (see above plan) close f/u with [facility] clinic recommended for further titration to goal effect. hx of HTN losartan has been on hold due to lower BP, continue to hold while restarting. terazosin originally held in setting of hypotension, but restarting khalif in setting of urinary retention that is persistent Dvt ppx: SQ Lovenox Dispo: admit to med tele, consult PT/OT PCP: Awilda Baron FULL CODE I spent a total [id number] coordinating, documenting, and providing care for this patient excluding time spent in the performance of separately billed services Digna Diop DO [facility] Hospitalist Admission and Anticipated Discharge Date Admission Date: January 21, 2023 Subjective 87 yo M admitted for hypotension, presumed sepsis 2/2 UTI feeling well today denies fever, chills, abdominal discomfort doing well with the catheter in place. HR improved since home atenolol restarted BM bx performed this morning and patient has no residual pain. Review of Systems Review of Systems: All systems were reviewed and negative except as indicated on HPI above. Physical Exam Physical Exam: CONSTITUTIONAL: WNWD, vitals as above, generally well-appearing EYES: normal conjunctivae, no scleral icterus ENT: external ear and nose normal, MMM NECK: trachea midline RESPIRATORY: clear to auscultation bilaterally, no crackles, rales or wheezes, normal respiratory effort CARDIOVASCULAR: regular rate and rhythm, S1 and 2 heard without murmurs, gallops or rubs, no JVD, no peripheral edema CHEST: inspection of chest was normal GASTROINTESTINAL: soft, nontender, ND, no guarding : vazquez in place. MUSCULOSKELETAL: strength 5/5 throughout, head is normocephalic and atraumatic SKIN: warm and dry NEUROLOGIC: CN 2-12 grossly intact, no sensory deficit, normal cognition, normal speech, no tremor PSYCHIATRIC: alert cooperative Results & Data Results & Data Vital Signs (Past 12 Hours) Vital Signs Pulse Resp BP Pulse Ox O2 Del Method 01/25/23 09:06 Room Air 01/25/23 07:40 60 16 122/66 98 Room Air Laboratory Results Short CBC 01/25/23 Range/Units 05:22 WBC 1.16 L (4.8-10.8) K/ul Hgb 11.8 L (14.0-18.0) g/dl Hct 32.9 L (42.0-52.0) % Plt Count 203 (130-400) K/uL Diagnostic Findings Chest CT 01/23/23 12:08 Exam(s): CT CHEST Without Contrast EXAM: CT Chest Without Intravenous Contrast CLINICAL HISTORY: Reason for exam: profound weight loss >20 lbs, new neutropenia. TECHNIQUE: Axial computed tomography images of the chest without intravenous contrast. CTDI is 5.85 mGy and DLP is 290.07 mGy-cm. Automated exposure control was utilized for the study. A dose lowering technique was utilized adhering to the principles of ALARA. COMPARISON: No relevant prior studies available. FINDINGS: Lungs: Unremarkable. No pulmonary mass or nodule. Pleural space: Trace bilateral pleural effusions. No focal infiltrate, pneumothorax, or pulmonary contusion. Heart: Mild pericardial effusion. No significant coronary artery calcifications. Bones/joints: Degenerative changes of the spine. No acute fracture. No dislocation. Soft tissues: Unremarkable. Vasculature: Atherosclerotic changes of the aorta. No thoracic aortic aneurysm. Lymph nodes: Unremarkable. No enlarged lymph nodes. IMPRESSION: 1. No pulmonary mass or nodule. 2. Mild pericardial effusion. 3. Trace bilateral pleural effusions. No focal infiltrate, pneumothorax, or pulmonary contusion. Electronically signed by: Michael Villagran MD 01/24/23 23:20 PM Abdomen/Pelvis CT 01/23/23 12:13 Exam(s): CT ABDOMEN + PELVIS Without Contrast EXAM: CT Abdomen and Pelvis Without Intravenous Contrast CLINICAL HISTORY: Reason for exam: profound weight loss >20 lbs, new neutropenia. TECHNIQUE: Axial computed tomography images of the abdomen and pelvis without intravenous contrast. CTDI is 7.1 mGy and DLP is 242.25 mGy-cm. Automated exposure control was utilized for the study. A dose lowering technique was utilized adhering to the principles of ALARA. COMPARISON: No relevant prior studies available. FINDINGS: Lung bases: Unremarkable. No mass. No consolidation. ABDOMEN: Liver: Unremarkable. Gallbladder and bile ducts: Unremarkable. No calcified stones. No ductal dilation. Pancreas: Diffuse calcifications of the pancreas, consistent with sequelae of chronic pancreatitis. No ductal dilation. Spleen: Unremarkable. No splenomegaly. Adrenals: Unremarkable. No mass. Kidneys and ureters: Mild renal atrophy. No obstructing stones. No hydronephrosis. Stomach and bowel: Mild fluid-filled small bowel with mild wall thickening, correlate for mild enteritis. No obstruction. PELVIS: Appendix: No findings to suggest acute appendicitis. Bladder: Vazquez catheter terminates in the urinary bladder. No stones. Reproductive: Unremarkable as visualized. ABDOMEN and PELVIS: Intraperitoneal space: Unremarkable. No free air. No significant fluid collection. Bones/joints: Degenerative changes of the spine. No acute fracture. No dislocation. Soft tissues: Unremarkable. Vasculature: Atherosclerotic changes of the aorta. No abdominal aortic aneurysm. Lymph nodes: Unremarkable. No enlarged lymph nodes. IMPRESSION: 1. Diffuse calcifications of the pancreas, consistent with sequelae of chronic pancreatitis. 2. Mild fluid-filled small bowel with mild wall thickening, correlate for mild enteritis. Electronically signed by: Michael Villagran MD 01/24/23 23:21 PM Medications Administered Current Inpatient Medications Acetaminophen (Acetaminophen 325 Mg Tab) 650 mg PO Q4H PRN PRN Reason: Pain or Fever Stop: 02/20/23 21:06 Al Hydrox/Mg Hydrox/Simethicone (Aluminum/Magnesium Susp 30 Ml Udc) 15 ml PO Q4H PRN PRN Reason: Dyspepsia Stop: 02/20/23 21:06 Atenolol (Atenolol 25 Mg Tablet) 25 mg PO QAM [facility] Stop: 02/23/23 11:29 Last Admin: 01/25/23 08:24 Dose: 25 mg Dextrose (Dextrose 50% 50 Ml Syringe) 25 - 50 ml IV UD PRN; Protocol PRN Reason: Hypoglycemia Protocol Stop: 02/20/23 21:06 Diclofenac Sodium (Diclofenac Sod 1% Gel 100 Gm Tube) 4 gm EXT Q6 PRN; Protocol PRN Reason: Pain Stop: 02/20/23 21:06 Docusate Sodium (Docusate Sodium 100 Mg Cap) 100 mg PO BID PRN PRN Reason: constipation Stop: 02/20/23 21:06 Enoxaparin Sodium (Enoxaparin Inj 30 Mg/0.3 Ml Syr) 30 mg SQ HS [facility] Stop: 02/20/23 21:06 Last Admin: 01/24/23 21:47 Dose: 30 mg Finasteride (Finasteride 5 Mg Tab) 5 mg PO QAM [facility] Stop: 02/22/23 08:59 Last Admin: 01/25/23 08:24 Dose: 5 mg Glucagon (Glucagon For Inj 1 Mg Vial) 1 mg SQ UD PRN; Protocol PRN Reason: Hypoglycemia Protocol Stop: 02/20/23 21:06 Glucose (Glucose 10 Tab/Tube) 4 - 8 tab PO UD PRN; Protocol PRN Reason: Hypoglycemia Treatment Stop: 02/20/23 21:06 Glucose (Glucose 40% Gel 15 Gm Tube) 15 - 30 gm PO UD PRN; Protocol PRN Reason: Hypoglycemia Protocol Stop: 02/20/23 21:06 Hydroxyzine HCl (Hydroxyzine Hcl 25 Mg Tab) 25 mg PO TID PRN PRN Reason: Itching Stop: 02/20/23 21:06 Last Admin: 01/22/23 13:56 Dose: 25 mg Vancomycin HCl 1,500 mg/ (Sodium Chloride) 530 mls @ 200 mls/hr IV ONE ONE; Protocol Stop: 01/25/23 11:08 Last Admin: 01/25/23 08:31 Dose: 200 mls/hr Vancomycin HCl 1,250 mg/ (Sodium Chloride) 275 mls @ 200 mls/hr IV Q24H [facility]; Protocol Stop: 02/04/23 20:59 Insulin Aspart (Insulin Aspart Per Unit Charge) 0 units SC ACHS [facility] Stop: 02/20/23 21:06 Last Admin: 01/25/23 08:26 Dose: 3 units Insulin Glargine (Lantus Per Unit Charge) 12 units SQ HS [facility] Stop: 02/21/23 20:59 Last Admin: 01/24/23 21:47 Dose: 12 units Loratadine (Loratadine 10 Mg Tab) 10 mg PO DAILY [facility] Stop: 02/21/23 08:59 Last Admin: 01/25/23 08:24 Dose: 10 mg Magnesium Hydroxide (Magnesium Hydroxide Susp 30 Ml Udc) 30 ml PO Q12H PRN PRN Reason: Constipation Stop: 02/20/23 21:06 Melatonin (Melatonin 3 Mg Tab) 3 mg PO HS [facility] Stop: 02/20/23 21:06 Last Admin: 01/24/23 21:48 Dose: 3 mg Miscellaneous (Carbohydrates For Hypoglycemia ) 15 - 30 gm PO UD PRN PRN Reason: Hypoglycemia Protocol Stop: 02/20/23 21:06 Miscellaneous Information (Pharmacy Glycemic Mgmt Consult) 1 each N/A UD PRN PRN Reason: Consult Stop: 02/20/23 21:06 Miscellaneous Information (Vancomycin Consult Active) 1 each N/A UD PRN PRN Reason: Consult Stop: 02/24/23 07:59 Terazosin 2 Mg Cap: Non-Formulary Patient's Own Med 2 each PO HS VINOD Stop: 02/22/23 20:59 Last Admin: 01/24/23 21:48 Dose: 2 each Ondansetron HCl (Ondansetron Inj 2 Mg/Ml 2 Ml Vial) 4 mg IV Q6H PRN PRN Reason: Nausea Stop: 02/20/23 21:06 Polyethylene Glycol (Polyethylene (Miralax) 17 Gm Pack) 17 gm PO DAILY PRN PRN Reason: Constipation Stop: 02/20/23 21:06 Valacyclovir HCl (Valacyclovir Hcl 500 Mg Tablet) 1,000 mg PO BID [facility] Stop: 02/20/23 21:06 Last Admin: 01/25/23 08:23 Dose: 1,000 mg (8) Sacral decubitus ulcer Pressure injury stage: unspecified pressure injury stage Qualified Code(s): L89.159 - Pressure ulcer of sacral region, unspecified stage
[2023-01-25] MEDS ORDERED: fentaNYL citrate PF 100 MCG/2 ML VIAL ONE (10:24)
--- NOTE | 2023-01-25 14:29 | CT Scan Report ---
CT-guided bone marrow biopsy INDICATION: Chronic leukopenia with severe neutropenia PROCEDURE: Procedure and and risks were explained. Informed consent was obtained. A final timeout was completed. The patient was placed prone on the CT exam table. The left gluteal region was prepped an d draped in sterile fashion. 1% buffered lidocaine was utilized for skin anesthesia. Utilizing CT guidance, an 11-gauge bone biopsy needle was advanced into the left iliac bone. Multiple aspirates and one bone core was obtained and given to the lab. The needle was removed and bandage ap plied. The patient tolerated the procedure well. Vital signs will be on the floor postprocedure. IMPRESSION: Bone marrow biopsy as above. Performed, dictated, and signed by Wai Yousif PA-C; to be co-signed by Dr. Nick Ruby. Electronically signed by: Nick Ruby M.D. 01/25/2023 4:15 PM
--- NOTE | 2023-01-25 14:50 | Pharmacy Report ---
Pharmacy Glycemic Short Note 2 - Date of Service January 25, 2023 - Glycemic Short BSG Results (Last 24 hours): 01/24/23 01/24/23 01/25/23 16:59 20:52 08:01 POC Glucose 192 H 149 H 80 01/25/23 12:01 POC Glucose 118 H OUTPATIENT ANTIDIABETIC REGIMEN: * Lantus 15 units daily * Jardiance 10mg daily * Metformin ER 1000mg QAM * HbA1c 8.2% on 01/22/23 ASSESSMENT: 01/25 * Patient received 27 units of insulin yesterday, of which 12 were basal * Fasting BSG slightly below goal today, however no consistent pattern, will keep the basal regimen the same today and continue to monitor basal regimen. * Vancomycin added today for UTI, other stressors stable * Prandial BSGs within goal range, continue current Novolog parameters 01/22 * 87 year old male with type 2 diabetes; HbA1c 9.4% on 12/15/22. Today's A1c pending. * Upon presentation on 01/21, BSG was elevated at 296. Patient received 4 units of regular insulin as IV bolus. He was also started on novolog with 40-13 parameters, and given 10 units of Lantus at bedtime per scale. * Overnight, 0400 BSG was low at 96 mg/dL. 0800 fasting at lower end of goal range at 112 mg/dL. It is a possibility that the patient received his home La ntus in addition to the 10 units given upon arrival, per admission med rec. Total daily Lantus dose will be decreased by ~20% from the home regimen. * Luchtime BSG 206 mg/dL. Will tighten Novolog parameters to 30-9 given previous success on this regimen in a recent admission. PLAN FOR INPATIENT GLYCEMIC CONTROL: * Hold outpatient oral diabetes medications * Basal insulin * Lantus 12 units SQ HS * Bolus insulin * NovoLog per scale ACHS or Q6hrs while NPO * Goal Range: Low 110 mg/dL - High 140 mg/dL * Correction Factor: 30 mg/dL/unit * Nutritional / Prandial insulin per carb ratio of 1 unit per 9 grams CHO consumed
[2023-01-25] MEDS ORDERED: VANCOMYCIN HCL 1,250 MG in SODIUM CHLORIDE 0.9% 250 ML IV SCH (21:00)
[2023-01-25] MEDS: LANTUS PER UNIT CHARGE SQ SCH (21:08)
[2023-01-25] MEDS: glipiZIDE 5 MG TAB PO SCH (21:10)
[2023-01-25] MEDS: ENOXAPARIN INJ 30 MG/0.3 ML SYR SQ SCH (21:12)
[2023-01-25] MEDS: LINEZOLID 600 MG TAB PO SCH (21:13)
[2023-01-25] MEDS: MELATONIN 3 MG TAB PO SCH (21:14)
[2023-01-25] MEDS: TERAZOSIN 2 MG PO SCH (21:14)
[2023-01-26 06:40] LABS: Creatinine Clr Calc Pharmacy 42.8 ml/min; Est GFR (African American) 69.6 ml/min
[2023-01-26] MEDS: valACYclovir HCL 500 MG TABLET PO SCH ×2 (08:50→20:26)
[2023-01-26] MEDS: LINEZOLID 600 MG TAB PO SCH ×2 (08:50→20:26)
[2023-01-26] MEDS: FINASTERIDE 5 MG TAB PO SCH (08:50)
[2023-01-26] MEDS: ATENOLOL 25 MG TABLET PO SCH (08:50)
[2023-01-26] MEDS: glipiZIDE 5 MG TAB PO SCH (08:50)
[2023-01-26] MEDS: LORATADINE 10 MG TAB PO SCH (08:50)
[2023-01-26] MEDS ORDERED: VANCOMYCIN HCL 1,250 MG in SODIUM CHLORIDE 0.9% 250 ML IV SCH (09:00)
[2023-01-26] MEDS ORDERED: INSULIN ASPART PER UNIT CHARGE SC STA ×2 (15:47→20:49)
[2023-01-26] MEDS ORDERED: INSULIN HUMAN NPH SC SCH (16:30)
[2023-01-26] MEDS ORDERED: INSULIN ASPART PER UNIT CHARGE SC SCH (16:30)
--- NOTE | 2023-01-26 17:00 | Hospitalist Progress Note ---
Date of Service January 26, 2023 Assessment & Plan (1) Sepsis: (2) Hypotension: (3) Neutropenia: (4) Acute on chronic urinary retention: (5) DM (diabetes mellitus): (6) BPH (benign prostatic hyperplasia): (7) PAF (paroxysmal atrial fibrillation): (8) Sacral decubitus ulcer: Plan This is an 87-year-old male who has significant past medical history of PAF, HTN, RBBB, first-degree AV block, hyperlipidemia, gout, BPH with obstructive symptoms and neutropenia who presents to ED secondary to hypotension and hyperglycemia. Pt was at urology OV for hosp f/u and voiding trial. Vazquez cath removed. Post cath removal pt become sweaty, diaphoretic and pale. SBPs in 60s. 5 min later SBP in 80s. BSG in 300s. EMS summoned. He received 2L of IVF, 1L en route and 1L in ED. BP improved. Pt has stopped his outpatient losartan due to lower BP. Continues to take atenolol. States previously has high BP but has lost significant amount of weight. Hypotension possible UTI/sepsis Given profound neutropenia and hypotension, patient was empirically treated for sepsis and started on IV cefepime Possible CAUTI Medications and/or vasovagal response may have contributed to hypotension Urine culture grew Enterococcus faecalis. Cefepime was transitioned to Vanco and subsequently linezolid BID, which will be continued for a short course (on day #2) Blood cultures no growth BPH w/ obs sx urinary retention follows [facility] urology, vazquez removed in clinic on day of admission persistent urinary retention; He was declining urinary catheter reinsertion despite elevated post void residuals on bladder scan that were 500-700cc Urology consulted and ultimately patient was agreeable to Vazquez catheter Plan to keep Vazquez catheter for 1 to 2 weeks with follow-up for voiding trial in urology office Terazosin initially held due to hypotension, has since been restarted (family provided home supply) Proscar initiated Neutropenia Lost 20 lbs in last 12 months per outpatient records review. Per outpatient record review, neutropenia likely developed in the last 6 months. Peripheral smear performed this admission with rare blasts noted, pt did have heme/onc eval as OP on 01/11 scheduled for eval of new neutropenia but this was cancelled, will need to be rescheduled Heme Onc consulted and recommended BM biopsy Given weight loss, ordered CT c/a/p-no clear mass of concern but he did have calcifications of the pancreas. Likely source of infection above is urinary but neutropenia is more chronic than just this infection Bone marrow biopsy performed on 01/25, results pending. Will need close outpatien t follow-up with [facility] oncology. T2DM with hyperglycemia uncontrolled with A1C > 8.0 Recently diagnosed with DMII in Oct. Initially placed on metformin and shortly afterwards Jardiance was added. Patient presented in November with anion gap metabolic acidosis with a glucose of 307, which may have been metformin induced lactic acidosis. The lactate was not checked at that time. The addition of Jardiance may not be ideal in this patient either because of his ongoing urinary retention and recent UTIs. Would not continue with this option for glycemic control for this reason either. Also want to avoid the use of SGLT2 inhibitors in patients with frequent bacterial UTIs or yeast infections, low bone density and high risk for falls/fractures, and factors predisposing them for DKA. Per guidelines from the [place] [employer], his glycemic target give his older age and shorter life expectancy should be A1C <8. His A1C is currently 8.2 pt was d/c on 15 units of lantus daily from most recent admission, and was hyperglycemic at home and seen just prior to admission Patient placed on Lantus/NovoLog during current admission. For discharge plan tomasa purposes, NovoLog was discontinued on 01/25 and patient was trialed on low- dose glipizide. Patient also received Lantus 12 units last evening. Patient with hypoglycemia this a.m. and received glipizide. Patient did eat for breakfast and subsequently developed hyperglycemia with glucose 287. In an attempt to simplify diabetes management, will trial 70/30 insulin. Stop glipizide. Discussed dosing with pharmacy, 70/30 not available, therefore will provide doses of NPH and NovoLog. Inpatient dosing: NPH 9 units SC with breakfast, 5 units SC with dinner and 4 units of Novolog with breakfast and 2 units of Novolog with dinner. 70/30 dosing at discharge: 12 units with breakfast and 8 units with dinner Patient has appointment with [facility] endocrine on 02/01 for diabetes management Sacral ulcerations-unstageable, POA Wound care nurse assessed with silver and foam dressing applied, continue to stay off this site. hx of HTN Losartan has been on hold due to lower BP, will continue to hold as BP is controlled terazosin originally held in setting of hypotension, but restarting khalif in setting of urinary retention that is persistent Paroxysmal atrial fibrillation h/o single event controlled in sinus on combination of atenolol and flecainide. He reports not using flecainide for months. This previous AF event occurred in the setting of acute illness and high dose corticosteroid use for PMR in 2005. Has had no recurrence of AF and followed with [facility] Cardiology. Remains on atenolol and losartan at reduced doses. No AC indicated. Dvt ppx: SQ Lovenox Dispo-tentatively planning for DC to [facility] tomorrow pending glucose control I spent a total of 45 minutes coordinating, documenting, and providing care for this patient excluding time spent in the performance of separately billed services. This included personally reviewing all current laboratories and imaging studies, medication reconciliation, outpatient chart review, and discussion with specialists. Admission and Anticipated Discharge Date Admission Date: January 21, 2023 Supervising Physician Co-Signing Physician Notes I have seen and examined the patient and have discussed the case with the provider above. I agree with the assessment and plan as stated. 87 yo M who is upset that his stay has been continued because of his sugar. Blames the pancakes and high carb diet for this. I explained the change to combination insulin and that is how we will "regulate" the sugar. He verbalized understanding. My physical exam reflects that above. Agree with the plan. Jadon, DO Subjective Follow-up for hypotension, presumed sepsis, BPH with urinary obstruction, DM type II. Patient seen and examined. Sitting up in the chair. Offers no complaints, eager to be discharged. Denies chest pain or shortness of breath. No lightheadedness or dizziness. No abdominal pain or nausea, reports a good appetite. Physical Exam Constitutional: WD/WN, vitals as above Respiratory: normal respiratory effort, lungs clear to auscultation Cardiovascular: Rate/Rhythm: regular rate and regular rhythm Vessels: normal peripheral pulses Extremities: no edema Gastrointestinal (Abdomen): Percussion/Palpation: abdomen soft; abdomen nontender Skin: no rashes, warm and dry Neurologic: no focal motor deficits Psychiatric: A+Ox3, euthymic affect Genitourinary: Vazquez in place draining clear yellow urine Results & Data Results & Data Vital Signs (Past 12 Hours) Vital Signs Temp Pulse Resp BP Pulse Ox O2 Del Method 01/26/23 14:51 36.6 C 68 16 131/67 97 Room Air 01/26/23 09:12 Room Air 01/26/23 07:27 36.3 C L 65 16 132/67 99 Room Air Laboratory Results [facility] 01/26/23 05:32 Creatinine 1.10 (8) Sacral decubitus ulcer Pressure injury stage: unspecified pressure injury stage Qualified Code(s): L89.159 - Pressure ulcer of sacral region, unspecified stage
[2023-01-26] MEDS: MELATONIN 3 MG TAB PO SCH (20:27)
[2023-01-26] MEDS: ENOXAPARIN INJ 30 MG/0.3 ML SYR SQ SCH (20:27)
[2023-01-26] MEDS: TERAZOSIN 2 MG PO SCH (20:27)
[2023-01-27] MEDS ORDERED: INSULIN HUMAN NPH SC SCH (07:30)
[2023-01-27] MEDS ORDERED: INSULIN ASPART PER UNIT CHARGE SC SCH (07:30)
[2023-01-27 08:05] LABS: Hematocrit (blood only) 35.6 % (42.0-52.0); Hemoglobin 12.8 g/dl (14.0-18.0); Mean Corpuscular Volume 94.4 fL (80.0-100.0); Mean Platelet Volume 8.8 fL (9.4-12.4); Platelet Count 233 K/uL (130-400); RDW Standard Deviation 44.6 fL (36.4-46.3); Red Blood Count 3.77 M/uL (4.70-6.10); White Blood Count 1.04 K/ul (4.8-10.8)
[2023-01-27 08:26] LABS: BUN Creatinine Ratio 18.5 (10-20); Calcium 7.9 mg/dl (8.6-10.3); Creatinine Clr Calc Pharmacy 43.6 ml/min; Est GFR (African American) 71.1 ml/min; Est GFR (Non-African American) 61.4 ml/min; Potassium 4.5 mmol/L (3.5-5.1)
[2023-01-27] MEDS: FINASTERIDE 5 MG TAB PO SCH (09:09)
[2023-01-27] MEDS: LORATADINE 10 MG TAB PO SCH (09:09)
[2023-01-27] MEDS: valACYclovir HCL 500 MG TABLET PO SCH (09:09)
[2023-01-27] MEDS: LINEZOLID 600 MG TAB PO SCH (09:09)
[2023-01-27] MEDS: ATENOLOL 25 MG TABLET PO SCH (09:10)
[2023-01-27] MEDS ORDERED: hydrOXYzine HCl 25 MG TAB PO STA (09:58)
--- NOTE | 2023-01-27 11:24 | Discharge Summary ---
Discharge Summary Date of Service January 27, 2023 Admission HPI Per Admitting Provider This is an 87-year-old male who has significant past medical history of PAF, HTN, RBBB, first-degree AV block, hyperlipidemia, gout, BPH with obstructive symptoms and neutropenia who presents to ED secondary to hypotension and hyperglycemia. Of significance patient was recently hospitalized 12/15/2022 to 12/31/2022 secondary to generalized weakness, DKA, ambulatory dysfunction, KAREN, urinary retention with failed voiding trial being discharged on Vazquez catheter, delirium and UTI. He was following up with urology today due to urinary retention and catheter was removed. When patient was getting up to leave appointment he became diaphoretic, pale and sweaty. Staff took his blood pressure and systolically was in the 60s and blood sugar was in the 300s. After 5 minutes a repeat blood pressure was systolically in the 80s. Due to this EMS was summoned. He received 1 L of IV fluid via EMS and additional liter of IV fluid in ED. Pt states when they took catheter out it hurt and then his symptoms started. He feels he nearly passed out. He denies feeling lightheaded currently. He denies f/c/s, pain, chest pain, sob, cough, uri sx, n/v/d,abd pain or hematuria. He has not urinated since his urology visit. He moved his bowels this morning and it was normal for him. He states his bsgs have been running 150s-350s at home. 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 Overall feels his appetite has been good. Principal Dx & Hospital Course #1 = Principal Diagnosis (1) Sepsis: (2) Hypotension: (3) Neutropenia: (4) Acute on chronic urinary retention: (5) DM (diabetes mellitus): (6) BPH (benign prostatic hyperplasia): (7) PAF (paroxysmal atrial fibrillation): (8) Sacral decubitus ulcer: Plan This is an 87-year-old male who has significant past medical history of PAF, HTN, RBBB, first-degree AV block, hyperlipidemia, gout, BPH with obstructive s ymptoms and neutropenia who presents to ED secondary to hypotension and hyperglycemia. Pt was at urology OV for hosp f/u and voiding trial. Vazquez cath removed. Post cath removal pt become sweaty, diaphoretic and pale. SBPs in 60s. 5 min later SBP in 80s. BSG in 300s. EMS summoned. He received 2L of IVF, 1L en route and 1L in ED. BP improved. Pt has stopped his outpatient losartan due to lower BP. Continues to take atenolol. States previously has high BP but has lost significant amount of weight. Hypotension possible UTI/sepsis Given profound neutropenia and hypotension, patient was empirically treated for sepsis and started on IV cefepime Possible CAUTI Medications and/or vasovagal response may have contributed to hypotension Urine culture grew Enterococcus faecalis. Cefepime was transitioned to Vanco and subsequently linezolid BID, which will be continued for a short course (on day #2) Blood cultures no growth BPH w/ obs sx urinary retention follows [facility] urology, vazquez removed in clinic on day of admission persistent urinary retention; He was declining urinary catheter reinsertion despite elevated post void residuals on bladder scan that were 500-700cc Urology consulted and ultimately patient was agreeable to Vazquez catheter Plan to keep Vazquez catheter for 1 to 2 weeks with follow-up for voiding trial in urology office Terazosin initially held due to hypotension, has since been restarted (family provided home supply) Proscar initiated Neutropenia Lost 20 lbs in last 12 months per outpatient records review. Per outpatient record review, neutropenia likely developed in the last 6 months. Peripheral smear performed this admission with rare blasts noted, pt did have heme/onc eval as OP on 01/11 scheduled for eval of new neutropenia but this was cancelled, will need to be rescheduled Heme Onc consulted and recommended BM biopsy Given weight loss, ordered CT c/a/p-no clear mass of concern but he did have calcifications of the pancreas. Likely source of infection above is urinary but neutropenia is more chronic than just this infection Bone marrow biopsy performed on 01/25, results pending. Will need close outpatient follow-up with [facility] oncology. T2DM with hyperglycemia uncontrolled with A1C > 8.0 Recently diagnosed with DMII in Oct. Initially placed on metformin and shortly afterwards Jardiance was added. Patient presented in November with anion gap metabolic acidosis with a glucose of 307, which may have been metformin induced lactic acidosis. The lactate was not checked at that time. The addition of Jardiance may not be ideal in this patient either because of his ongoing urinary retention and recent UTIs. Would not continue with this option for glycemic control for this reason either. Also want to avoid the use of SGLT2 inhibitors in patients with frequent bacterial UTIs or yeast infections, low bone density and high risk for falls/fractures, and factors predisposing them for DKA. Per guidelines from the [place] [employer], his glycemic target give his older age and shorter life expectancy should be A1C <8. His A1C is currently 8.2 pt was d/c on 15 units of lantus daily from most recent admission, and was hyperglycemic at home and seen just prior to admission Patient placed on Lantus/NovoLog during current admission. For discharge planning purposes, NovoLog was discontinued on 01/25 and patient was trialed on low-dose glipizide. Patient also received Lantus 12 units last evening. Patient with hypoglycemia this a.m. and received glipizide. Patient did eat for breakfast and subsequently developed hyperglycemia with glucose 287. In an attempt to simplify diabetes management, will trial 70/30 insulin. Stop glipizide. Discussed dosing with pharmacy, 70/30 not available, therefore will provide doses of NPH and NovoLog. Inpatient dosing: NPH 9 units SC with breakfast, 5 units SC with dinner and 4 units of Novolog with breakfast and 2 units of Novolog with dinner. 70/30 dosing at discharge: 12 units with breakfast and 8 units with dinner Patient has appointment with [facility] endocrine on 02/01 for diabetes management Sacral ulcerations-unstageable, POA Wound care nurse assessed with silver and foam dressing applied, continue to stay off this site. hx of HTN Losartan has been on hold due to lower BP, will continue to hold as BP is controlled terazosin originally held in setting of hypotension, but restarting khalif in setting of urinary retention that is persistent Paroxysmal atrial fibrillation h/o single event controlled in sinus on combination of atenolol and flecainide. He reports not using flecainide for months. This previous AF event occurred in the setting of acute illness and high dose corticosteroid use for PMR in 2005. Has had no recurrence of AF and followed with [facility] Cardiology. Remains on atenolol and losartan at reduced doses. No AC indicated. Dvt ppx: SQ Lovenox Dispo-tentatively planning for DC to [facility] tomorrow pending glucose control I spent a total of 45 minutes coordinating, documenting, and providing care for this patient excluding time spent in the performance of separately billed services. This included personally reviewing all current laboratories and imaging studies, medication reconciliation, outpatient chart review, and discussion with specialists. Discharge Exam CONSTITUTIONAL: WNWD, vitals as above, generally well-appearing EYES: normal conjunctivae, no scleral icterus ENT: external ear and nose normal, MMM NECK: trachea midline RESPIRATORY: clear to auscultation bilaterally, no crackles, rales or wheezes, normal respiratory effort CARDIOVASCULAR: regular rate and rhythm, S1 and 2 heard without murmurs, gallops or rubs, no JVD, no peripheral edema CHEST: inspection of chest was normal GASTROINTESTINAL: soft, nontender, ND, no guarding : vazquez in place. MUSCULOSKELETAL: strength 5/5 throughout, head is normocephalic and atraumatic SKIN: warm and dry NEUROLOGIC: CN 2-12 grossly intact, no sensory deficit, normal cognition, normal speech, no tremor PSYCHIATRIC: alert cooperative Updated Medication List Medication Instructions Recorded Confirmed Type azelastine 137 mcg (0.1 %) nasal 2 spray intranasal BID PRN 07/10/19 01/21/23 History spray aerosol Congestion atenolol 25 mg tablet 25 mg PO QAM 11/20/21 01/21/23 History valacyclovir 1 gram tablet 1,000 mg PO BID 11/20/21 01/21/23 History hydroxyzine HCl 25 mg tablet 25 mg PO TID PRN Itching 12/15/22 01/21/23 History terazosin 2 mg capsule 4 mg PO HS 12/15/22 01/23/23 History diclofenac sodium 1 % topical gel 4 g EXT Q6 PRN Pain #1 tube 12/30/22 01/21/23 Rx (Voltaren Arthritis Pain) docusate sodium 100 mg capsule 100 mg PO BID PRN constipation #60 12/30/22 01/21/23 Rx (Colace) caps flash glucose scanning reader #1 ea 12/30/22 01/21/23 Rx (FreeStyle Clementine 2 [place]) flash glucose sensor (FreeStyle #2 ea 12/30/22 01/21/23 Rx Clementine 2 Sensor kit) insulin glargine 100 unit/mL (3 15 unit (0.15 mL) subcut DAILY #15 12/30/22 01/21/23 Rx mL) subcutaneous pen (Lantus mL Solostar U-100 Insulin) melatonin 3 mg tablet 3 mg PO HS #10 tabs 12/30/22 01/21/23 Rx needle (disp) 32 gauge 32 gauge x #100 ea 12/30/22 01/21/23 Rx 5/16" polyethylene glycol 3350 17 gram 17 g PO DAILY PRN constipation #30 12/30/22 01/21/23 Rx oral powder packet (Miralax) ea loratadine 10 mg tablet (Claritin) 10 mg PO DAILY 01/21/23 01/21/23 History naproxen sodium 220 mg tablet 220 mg PO BID PRN Pain 01/21/23 01/21/23 History (Aleve) finasteride 5 mg tablet (Proscar) 5 mg PO QAM #30 tabs 01/27/23 Rx insulin NPH-regular 70-30 U-100 8 unit (0.08 mL) subcut 01/27/23 Rx insulin 100 unit/mL subcutaneous DIRECTED #15 mL pen (Novolin 70-30 FlexPen U-100 Insulin) linezolid 600 mg tablet 600 mg PO BID #8 tabs 01/27/23 Rx Hospital Stay Data Consultations 01/21/23 18:03 ED Decision to Admit Stat 01/23/23 08:00 Consult Urology Routine 01/23/23 15:30 Consult Hematology Routine 01/25/23 08:01 Consult Infectious Diseases Routine Diagnostic Imagining Performed 01/23/23 12:08 CT chest diagnostic wo con Routine 01/23/23 12:13 CT abd pelvis wo con Routine 01/24/23 09:14 IR bone marrow bx & asp Routine Pending Results Patient Have Any Pending Studies at Discharge: Yes Discharge Instructions Given to Patient (Per Discharging Provider) Patient presented on 01/21 for evaluation of hypotension in the setting of having Vazquez catheter removed at outpatient urology visit. Patient treated empirically for sepsis due to UTI with antibiotics. Urine culture grew Enterococcus faecalis which may be a contaminant however due to underlying chronic urinary retention and recurrent UTIs, will discharge patient on a short course of linezolid. Due to ongoing urinary retention, Vazquez catheter was replaced. Patient will need close outpatient follow-up with urology for a repeat trial of void. Patient was found to have neutropenia with peripheral smear showing rare blast which was likely a natural response to infection. Heme-onc was consulted and bone marrow biopsy was performed for assistance with workup of the chronic leukopenia. Results pending at discharge. Hematology follow-up as outpatient is recommended to interpret results and guide therapy. Regarding diabetic management, he will be discharged on twice daily 70/30 conbination insulin. This will allow good fasting coverage and help with prandial glucose control which was elevated. Please follow-up with primary care as scheduled to discuss neutropenia, urinary retention and diabetic management. It was a pleasure taking care of you! Please call if you have any questions or problems. You can reach a [facility] hospitalist on duty at [facility] 24 hours a day by calling [phone]. Take care of yourself. Digna Diop, Tri-City Medical Centerist
== END 2023-01-27 13:17 | disposition home or self-care (01) | DRG 673 ==
LOC: ED 14:34 → SUATTDRO 18:22 → 2S 18:22 → 3E 01-23 15:01

== ENCOUNTER 2023-07-03 22:58 | Inpatient (IN) ==
[2023-07-03 23:34] LABS: Hemoglobin 13.4 g/dl (14.0-18.0); Mean Corpuscular Hemoglobin 31.5 pg (25.0-34.0); Mean Corpuscular Hgb Conc 35.3 g/dL (32.0-36.0); Mean Corpuscular Volume 89.2 fL (80.0-100.0); Mean Platelet Volume 9.3 fL (9.4-12.4); Platelet Count 187 K/uL (130-400); RDW Coefficient of Variation 13.6 % (11.5-14.5); RDW Standard Deviation 44.9 fL (36.4-46.3); Red Blood Count 4.26 M/uL (4.70-6.10); White Blood Count 2.03 K/ul (4.8-10.8)
[2023-07-03 23:47] LABS: Albumin Globulin Ratio 1.7 (0.9-2); Albumin Level 3.8 gm/dl (3.4-5.0); BUN Creatinine Ratio 22.4 (10-20); Bilirubin,Total 1.8 mg/dl (0.2-1.0); Calcium 8.4 mg/dl (8.6-10.3); Creatinine Clr Calc Pharmacy 35.5 ml/min; Est GFR (African American) 65.3 ml/min; Est GFR (Non-African American) 56.3 ml/min; Globulin 2.3 gm/dl (2.5-4.0); Potassium 4.3 mmol/L (3.5-5.1); Total Protein 6.1 gm/dl (6.0-8.3)
[2023-07-03 23:54] LABS: Troponin I High Sensitivity 7.3 pg/ml (0-20)
[2023-07-03 23:58] LABS: Basophils # (auto) 0.01 K/uL (0.00-0.20); Basophils % (auto) 0.5 %; Eosinophils # (auto) 0.03 K/uL (0.00-0.50); Eosinophils % (auto) 1.5 %; Immature Granulocytes # (auto) 0.03 K/uL (0.01-0.20); Immature Granulocytes % (auto) 1.5 %; Lymphocytes # (auto) 0.68 K/uL (1.20-3.40); Lymphocytes % (auto) 33.5 %; Monocytes # (auto) 0.07 K/uL (0.11-0.59); Monocytes % (auto) 3.4 %; Neutrophils # (auto) 1.21 K/uL (1.40-6.50); Neutrophils % (auto) 59.6 %
[2023-07-04 00:10] LABS: INR 1.2 (0.9-1.1); Partial Thromboplastin Ratio 1.2; Partial Thromboplastin Time 33.8 Seconds (21.0-31.0); Prothrombin Time 13.4 Seconds (9.0-12.0)
[2023-07-04] MEDS ORDERED: SODIUM CHLORIDE 0.9% 500 ML IV ONE (01:06)
--- NOTE | 2023-07-04 01:34 | Emergency Department Note ---
Impression & Plan TIA (transient ischemic attack), Acute UTI Admit to the [facility] ED Provider Note NAME: THIAGO KAUFMAN AGE: 87 SEX: M ARRIVES VIA: Ambulance INFORMANT: Patient and his ED PROVIDER(S): Renee Mcgee DO CHIEF COMPLAINT: Altered mental status and weakness PLAN: Disposition: Admit to the [facility] Condition: Good MEDICAL DECISION MAKING: This is a 87-year-old male patient who had an episode of confusion and inability to move. The patient was preparing to go to bed when he stood up from the couch and seem to be stuck in a standing position unable to move. He is also confused at that time. His explains that he was unable to move forward and was only shuffling his feet in the same position. He has never had episode like this in the past. He did have an altered mental status according to the . EMS was called. He remained somewhat confused for them but this resolved on their way to the hospital. 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 Hemoglobin and hematocrit were stable. BUN was slig htly elevated at 26. Glucose was elevated at 167. He had a normal troponin. The patient did appear somewhat dehydrated on physical exam and was given a bolus of IV normal saline solution. Chest x-ray was unremarkable. He went for CT scan of the brain and CT angiograms of the head and neck which showed vertebral artery narrowing. Urinalysis also revealed a urinary tract infection. This may be the cause of the patient's neurological symptoms. Patient was treated with IV Rocephin. His neuro status has returned to baseline at this time. I discussed the case with the [facility] and they will evaluate the patient for further inpatient care and completion of the work-up for TIA. Triage Nursing notes reviewed and agree with them. Additional history obtained from his is at the bedside External records were reviewed including previous admissions to the hospital Vital Signs: reviewed and unremarkable Differential diagnosis: UTI, TIA, CVA, seizure, hypoglycemia ER treatment provided: Cardiac monitoring Twelve-lead EKG IV normal saline bolus IV Rocephin Diagnostics interpreted by me: ECG: Normal sinus rhythm at 77 with first-degree AV block. There is no ST segment elevation or signs of ischemia. There is no ectopy. Cardiac Monitoring: Normal sinus rhythm at 78 Laboratory studies: See below Imaging studies: As per stat rad CT scan of the brain: See report CTA of the brain: See report CT of the neck: See report Portable chest x-ray: As independently interpreted by me-unremarkable HPI: 87/M arrives for evaluation of altered mental status and weakness. Patient's gives the history that he was apparent to go to bed when he stopped in front of the couch and had an episode of confusion. He then seem to be stuck there and was unable to ambulate or move. He was shuffling his feet but could not walk. He then seemed to become weak and went down to his knees in front of the couch and was unable to get up off of the floor. Family members had to help him up off of the floor. They called 911 and he was transported here. He has never had an episode like this before. PAST MEDICAL HISTORY:See Below PAST SURGICAL HISTORY:See Below FAMILY HISTORY:See Below SOCIAL HISTORY:See Below HOME MEDICATIONS:See list ALLERGIES:See list VITALS:See Below PHYSICAL EXAMINATION: HEENT: Head - normocephalic and atraumatic. Pupils are equal, round, and reactive to light. Extraocular eye muscles are intact and sclera are anicteric. Ears - bilaterally patent canals with noninjected tympanic membranes and no evidence of hemotympanum. Nose - moist nasal mucosa without discharge. Mouth - moist buccal mucosa. Oropharynx is nonerythematous and there is no tonsillar exudate or edema noted. Neck: Supple; no JVD, nuchal rigidity, cervical lymphadenopathy, or auscultated bruits. Heart: Regular rate and rhythm. There is a normal S1 and S2 with no murmurs, clicks, or gallops appreciated. Lungs: Clear to auscultation bilaterally with no wheezes, rales, or rhonchi. Abdomen: Soft, completely nontender, nondistended, with good bowel sounds. There are no palpable pulsatile masses or hepatosplenomegaly. There is no guarding, rigidity, or rebound noted. Extremities: No evidence of cyanosis, clubbing, or edema. There are easily palpable peripheral pulses. Neuro:The patient is awake and alert, oriented to day, time, and place. Muscle strength is 5/5 in all 4 extremities. The patient has equal environmental issues instructor strength and equal pedal push and pull. There are no cerebellar signs. ED COURSE: Times/Reassessments: 2350: Patient was evaluated and A-4. A complete history and physical was performed An IV lock had been initiated and labs were drawn as above. His neurological exam is unremarkable at this time. Will go for CT scan of the brain and CTA of the brain and neck. Laboratory studies revealed some evidence of dehydration. He was bolused with IV normal saline solution. Urinalysis was obtained which appeared to be infected. The patient was given a dose of IV Rocephin. I discussed the case with the [facility] and they will evaluate for further management. 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) Diverticulitis (07/23/14) Diverticulitis DM (diabetes mellitus) DVT (deep venous thrombosis) H/O prostatitis HTN (hypertension) Incomplete emptying of bladder (11/03/14) Left leg DVT PAF (paroxysmal atrial fibrillation) PMR (polymyalgia rheumatica) Postoperative urethral stricture Sensorineural hearing loss of both ears Urinary retention UTI (lower urinary tract infection) UTI (lower urinary tract infection) Surgical History History of back surgery History of knee surgery History of surgery S/P TURP Family History Other Family history non-contributory Heart disease No family history of adverse response to anesthesia No family history of bleeding disorder Denies family history of Ovarian cancer Prostate cancer Myocardial infarction Breast cancer Colorectal cancer Social History Smoking Status: Never smoker Second Hand Exposure: No; Do You Dip or Chew Tobacco: No; Hx Alcohol Use: Yes Alcohol type: beer Hx Substance Use: No Preferred Language: Maldivian Communication Ability: Effective Visual Impairment: No Limitations Hearing Ability: Hard of Hearing Program Attendant Required: No Beliefs That Will Affect Care: None marital status: Current Living Situation: Spouse Current Living Situation Comment: Single family home current occupational status: retired How many Children do You have: 3 Feels Safe at Home: Yes Safety Concerns: Feels Safe At This Time Childhood Exposure to Second-Hand Smoke: No Diet: regular Dental Care, Regularly: Yes Physical Activity Frequency: 3-4 Times per Week Seatbelt Use: always Sunscreen Use: No Assistive Devices: None Allergies Allergies Allergy/AdvReac Type Severity Reaction Status Date / Time Penicillins Allergy Intermediate HIVES Verified 07/04/23 00:00 Sulfa (Sulfonamide Allergy Intermediate RASH Verified 07/04/23 00:00 Antibiotics) tree and shrub pollen Allergy Intermediate CONGESTION Verified 07/04/23 00:00 Home Meds Home Medications Medication Instructions Recorded Confirmed insulin glargine 100 unit/mL (3 15 unit subcut DAILY 02/01/23 07/04/23 mL) subcutaneous pen (Lantus Solostar U-100 Insulin) diphenoxylate-atropine 2.5 1 tab PO BID PRN Diarrhea 07/04/23 07/04/23 mg-0.025 mg tablet (Lomotil) finasteride 5 mg tablet (Proscar) 5 mg PO QAM PRN NEEDED PER 07/04/23 07/04/23 PT/GMG insulin NPH-regular 70-30 U-100 See Rx Instructions .Route .COMPLEX 07/04/23 07/04/23 insulin 100 unit/mL subcutaneous pen (Novolin 70-30 FlexPen U-100 Insulin) melatonin 3 mg tablet 3 mg PO HS 07/04/23 07/04/23 terazosin 2 mg capsule 2 mg PO HS 07/04/23 07/04/23 Previous Rx's Medication Instructions Recorded flash glucose scanning reader #1 ea 12/30/22 (FreeStyle Clement[place] 2 [place]) atenolol 25 mg tablet 25 mg PO QAM #30 tabs 01/27/23 azelastine 137 mcg (0.1 %) nasal 2 spray intranasal BID PRN 01/27/23 spray aerosol Congestion #30 mL valacyclovir 1 gram tablet 1,000 mg PO BID #60 tabs 01/27/23 needle (disp) 32 gauge 32 gauge x #400 ea 03/01/2303/09" flash glucose sensor (FreeStyle #2 ea 03/06/23 Clementine 2 Sensor kit) aspirin 81 mg tablet,delayed 81 mg PO QAM #30 tabs 07/05/23 release cefuroxime axetil 500 mg tablet 500 mg PO BID 8 days #16 tabs 07/05/23 Results & Data (ED) Vital Signs Vital Signs - 24 hr 07/03/23 23:01 07/03/23 23:15 07/03/23 23:15 Temperature 37.6 C H Temperature Source Oral Pulse Rate 70 Respiratory Rate 14 Respiratory Effort / Characteristics Non-Labored Spontaneous Respiratory Depth Normal Respiratory Pattern Regular Blood Pressure 109/65 Blood Pressure Mean 79 Pulse Oximetry 97 Oxygen Delivery Method Room Air Room Air Room Air Sepsis Recent Fever Within 48 Hours Yes Sepsis New/Unexplained Change in Mental Status Yes Sepsis Action Taken by Nursing No Action Required Laboratory Data 07/03/23 23:11 07/03/23 23:11 Lab Results 07/03/23 07/03/23 07/03/23 Range/Units 23:11 23:11 23:11 WBC 2.03 L (4.8-10.8) K/ul RBC 4.26 L (4.70-6.10) M/uL Hgb 13.4 L (14.0-18.0) g/dl Hct 38.0 L (42.0-52.0) % MCV 89.2 (80.0-100.0) fL MCH 31.5 (25.0-34.0) pg MCHC 35.3 (32.0-36.0) g/dL RDW Std Deviation 44.9 (36.4-46.3) fL RDW Coeff of Anm 13.6 (11.5-14.5) % Plt Count 187 (130-400) K/uL MPV 9.3 L (9.4-12.4) fL Immature Gran % (Auto) 1.5 % Neut % (Auto) 59.6 % Lymph % (Auto) 33.5 % [place] % (Auto) 3.4 % Eos % (Auto) 1.5 % Baso % (Auto) 0.5 % Neut # (Auto) 1.21 L (1.40-6.50) K/uL Lymph # (Auto) 0.68 L (1.20-3.40) K/uL [place] # (Auto) 0.07 L (0.11-0.59) K/uL Eos # (Auto) 0.03 (0.00-0.50) K/uL Baso # (Auto) 0.01 (0.00-0.20) K/uL Immature Gran # (Auto) 0.03 (0.01-0.20) K/uL PT 13.4 H (9.0-12.0) Seconds INR 1.2 H (0.9-1.1) APTT 33.8 H (21.0-31.0) Seconds PTT Ratio 1.2 Sodium 135 L (136-145) mmol/L Potassium 4.3 (3.5-5.1) mmol/L Chloride 103 (98-107) mmol/L Carbon Dioxide 25 (21-32) mmol/L Anion Gap 7 (3-11) BUN 26 H (6-23) mg/dl Creatinine 1.16 (0.6-1.4) mg/dl Est Cr Clr Drug Dosing 35.5 ml/min Est GFR ( Amer) 65.3 ml/min Est GFR (Non-Af Amer) 56.3 ml/min BUN/Creatinine Ratio 22.4 H (10-20) Glucose 167 H (70-99(Fasting)) mg/dl Lactate (0.4-2.0) mmol/L Calcium 8.4 L (8.6-10.3) mg/dl Magnesium (1.7-2.4) mg/dl Total Bilirubin 1.8 H (0.2-1.0) mg/dl AST 11 L (13-39) U/L ALT 10 (7-52) U/L Alkaline Phosphatase 75 (34-104) U/L Troponin I High Sens 7.3 (0-20) pg/ml Total Protein 6.1 (6.0-8.3) gm/dl Albumin 3.8 (3.4-5.0) gm/dl Globulin 2.3 L (2.5-4.0) gm/dl Albumin/Globulin Ratio 1.7 (0.9-2) 07/03/23 07/04/23 Range/Units 23:11 02:16 WBC (4.8-10.8) K/ul RBC (4.70-6.10) M/uL Hgb (14.0-18.0) g/dl Hct (42.0-52.0) % MCV (80.0-100.0) fL MCH (25.0-34.0) pg MCHC (32.0-36.0) g/dL RDW Std Deviation (36.4-46.3) fL RDW Coeff of Nam (11.5-14.5) % Plt Count (130-400) K/uL MPV (9.4-12.4) fL Immature Gran % (Auto) % Neut % (Auto) % Lymph % (Auto) % [place] % (Auto) % Eos % (Auto) % Baso % (Auto) % Neut # (Auto) (1.40-6.50) K/uL Lymph # (Auto) (1.20-3.40) K/uL [place] # (Auto) (0.11-0.59) K/uL Eos # (Auto) (0.00-0.50) K/uL Baso # (Auto) (0.00-0.20) K/uL Immature Gran # (Auto) (0.01-0.20) K/uL PT (9.0-12.0) Seconds INR (0.9-1.1) APTT (21.0-31.0) Seconds PTT Ratio Sodium (136-145) mmol/L Potassium (3.5-5.1) mmol/L Chloride (98-107) mmol/L Carbon Dioxide (21-32) mmol/L Anion Gap (3-11) BUN (6-23) mg/dl Creatinine (0.6-1.4) mg/dl Est Cr Clr Drug Dosing ml/min Est GFR ( Amer) ml/min Est GFR (Non-Af Amer) ml/min BUN/Creatinine Ratio (10-20) Glucose (70-99(Fasting)) mg/dl Lactate 1.6 (0.4-2.0) mmol/L Calcium (8.6-10.3) mg/dl Magnesium 1.6 L (1.7-2.4) mg/dl Total Bilirubin (0.2-1.0) mg/dl AST (13-39) U/L ALT (7-52) U/L Alkaline Phosphatase (34-104) U/L Troponin I High Sens 7.5 (0-20) pg/ml Total Protein (6.0-8.3) gm/dl Albumin (3.4-5.0) gm/dl Globulin (2.5-4.0) gm/dl Albumin/Globulin Ratio (0.9-2) Administered Medications Discontinued Medications Aspirin (Aspirin Chew 324 Mg) 324 mg PO NOW STA Stop: 07/04/23 04:46 Last Admin: 07/04/23 05:07 Dose: 324 mg Documented By: KITTY Aspirin (Aspirin 81 Mg Ectab) 81 mg PO [facility] Stop: 08/04/23 08:59 Last Admin: 07/05/23 08:44 Dose: 81 mg Documented By: SOCORRO Atenolol (Atenolol 25 Mg Tablet) 25 mg PO [facility] Stop: 08/03/23 06:14 Last Admin: 07/05/23 08:44 Dose: 25 mg Documented By: Admin: 07/04/23 07:21 Dose: 25 mg Documented By: JOJO Sodium Chloride (Nss) 500 mls @ 999 mls/hr IV .Q31M ONE Stop: 07/04/23 01:36 Last Infusion: 07/04/23 03:19 Dose: 0 mls/hr Documented By: Admin: 07/04/23 01:51 Dose: 999 mls/hr Documented By: KITTY Magnesium Sulfate/Dextrose (Magnesium Sulfate / D5w) 1 gm in 100 mls @ 50 mls/hr IV Q2H [facility] Stop: 07/04/23 08:29 Last Infusion: 07/04/23 09:18 Dose: 0 mls/hr Documented By: Admin: 07/04/23 07:16 Dose: 50 mls/hr Documented By: Infusion: 07/04/23 07:13 Dose: 0 mls/hr Documented By: Admin: 07/04/23 05:08 Dose: 50 mls/hr Documented By: KITTY Sodium Chloride (Nss) 1,000 mls @ 50 mls/hr IV .Q20H ONE Stop: 07/05/23 00:04 Last Infusion: 07/04/23 20:57 Dose: 0 mls/hr Documented By: Admin: 07/04/23 05:09 Dose: 50 mls/hr Documented By: KITTY Ceftriaxone Sodium 1,000 mg/ (Dextrose) 60 mls @ 100 mls/hr IV NOW ONE Stop: 07/04/23 04:35 Last Admin: 07/04/23 04:19 Dose: Not Given Documented By: KITTY Cefepime HCl (Maxipime) 2,000 mg in 20 mls @ 5 mls/min IV NOW STA; Protocol Stop: 07/04/23 04:21 Last Admin: 07/04/23 05:08 Dose: 5 mls/min Documented By: KITTY Daptomycin 350 mg/ Syringe 7 mls @ 3.5 mls/min IV Q24H VINOD; Protocol Stop: 07/14/23 05:59 Last Admin: 07/05/23 06:05 Dose: 3.5 mls/min Documented By: Admin: 07/04/23 06:18 Dose: 3.5 mls/min Documented By: KITTY Cefepime HCl 2,000 mg/ Syringe 20 mls @ 5 mls/min IV Q12H VINOD; Protocol Stop: 07/14/23 17:59 Last Admin: 07/05/23 05:06 Dose: 5 mls/min Documented By: Admin: 07/04/23 17:59 Dose: 5 mls/min Documented By: JAXON Sodium Chloride (Nss) 1,000 mls @ 50 mls/hr IV .Q20H ONE Stop: 07/05/23 16:59 Last Admin: 07/04/23 20:54 Dose: 50 mls/hr Documented By: JAYCEE Insulin Aspart (Insulin Aspart Per Unit Charge) 0 units SC ACHS VINOD Stop: 08/03/23 05:43 Last Admin: 07/05/23 12:50 Dose: 5 units Documented By: SOCORRO Co-signed By: CARMEN Admin: 07/05/23 08:43 Dose: 3 units Documented By: SOCORRO Co-signed By: CARMEN Admin: 07/04/23 20:52 Dose: Not Given Documented By: Admin: 07/04/23 19:03 Dose: 1 units Documented By: JAXON Co-signed By: JAYCEE Admin: 07/04/23 10:05 Dose: 3 units Documented By: JOJO Co-signed By: TIRSO Admin: 07/04/23 06:15 Dose: Not Given Documented By: KITTY Co-signed By: TREY Insulin Glargine (Lantus Per Unit Charge) 10 units SQ DAILY VINOD Stop: 08/03/23 08:59 Last Admin: 07/05/23 08:44 Dose: 10 units Documented By: SOCORRO Co-signed By: CARMEN Admin: 07/04/23 09:59 Dose: 10 units Documented By: JOJO Co-signed By: TIRSO Ioversol (Ioversol 350 Mg 125ml Prefilled Syringe) 118 ml IV ONCE ONE Stop: 07/04/23 02:06 Last Admin: 07/04/23 02:06 Dose: 118 ml Documented By: KSF Melatonin (Melatonin 3 Mg Tab) 3 mg PO HS VINOD Stop: 08/03/23 20:59 Last Admin: 07/04/23 20:52 Dose: 3 mg Documented By: TNK Discharge Plan Visit Data Chief Complaint: Leg Weakness, Bilateral ED Provider: Renee Mcgee Discharge Problem: TIA (transient ischemic attack), Acute UTI Patient Disposition: Admitted As Inpatient Discharge Instructions Interventions: ED Discharge Assessment Last Done: 07/04/23 05:44
[2023-07-04] MEDS ORDERED: IOVERSOL 350 MG 125mL Prefilled Syringe IV ONE (02:05)
[2023-07-04 02:10] LABS: Appearance Urine Turbid (Clear); Bacteria Urine Automated 4+ (Negative); Bilirubin Urine Negative (Negative); Blood Urine 2+ (Negative); Color Urine Yellow; Glucose Urine UA 2+ (Negative); Ketones Urine Negative (Negative); Leukocyte Esterase Urine 3+ (Negative); Nitrite Urine Negative (Negative); Protein Urine 1+ (Negative); RBC Urine Automated 0-4 /hpf (0-4); Specific Gravity Urine 1.017 (1.000-1.030); Urobilinogen Urine Negative (Negative); WBC Urine Automated >30 /hpf (0-5); pH Urine 5.5 (4.5-7.5)
[2023-07-04 02:45] LABS: Magnesium 1.6 mg/dl (1.7-2.4)
[2023-07-04 02:52] LABS: Troponin I High Sensitivity 7.5 pg/ml (0-20)
--- NOTE | 2023-07-04 03:32 | CT Scan Report ---
Exam(s): CT HEAD Without Contrast EXAM: CT Head Without Intravenous Contrast CLINICAL HISTORY: Reason for exam: neuro deficit, acute stroke suspected. TECHNIQUE: Axial computed tomography images of the head/brain without intravenous contrast. CTDI is 20.76 mGy and DLP is 1114.74 mGy-cm. Automated exposure control was utilized for the study. A dose lowering technique was utilized adhering to the principles of ALARA. COMPARISON: 12/27/2021 FINDINGS: Brain: Moderate periventricular white matter changes, likely related to microangiopathy. No hemorrhage. Ventricles: Unremarkable. No ventriculomegaly. Bones/joints: Unremarkable. No acute fracture. Soft tissues: Unremarkable. Sinuses: Mucosal thickening of the right maxillary sinus. Mastoid air cells: Unremarkable as visualized. No mastoid effusion. IMPRESSION: Moderate periventricular white matter changes, likely related to microangiopathy. Electronically signed by: Isaac Lawton M.D. 07/04/23 03:31 AM
--- NOTE | 2023-07-04 03:39 | CT Scan Report ---
Exam(s): CTA NECK With Contrast IV Amt: 118 cc's of optiray 350 EXAM: CT Angiography Neck With Intravenous Contrast CLINICAL HISTORY: Reason for exam: neuro deficit, acute stroke suspected. TECHNIQUE: Routine carotid CT angiography protocol was performed with intravenous contrast. NASCET criteria using the distal ICAs for comparison were used for evaluation of stenoses. CTDI is 37.95 mGy and DLP is 1114.74 mGy-cm. Automated exposure control was utilized for the study. A dose lowering technique was utilized adhering to the principles of ALARA. MIP reconstructed images were created and reviewed. CONTRAST: Patient received 118 cc's of optiray 350 of IV contrast COMPARISON: None. FINDINGS: VASCULATURE: Right common carotid artery: Moderate calcified plaque within the distal common carotid artery and carotid bulb causing up to 30% stenosis. No dissection. Right internal carotid artery: See above. Right external carotid artery: Unremarkable. No occlusion. Right vertebral artery: 80% stenosis at the origin of the right vertebral artery. No dissection. Left common carotid artery: Mild atherosclerotic disease of the distal left common carotid artery without hemodynamically significant stenosis. Left internal carotid artery: Moderate atherosclerotic plaque within the left carotid bulb causing up to 40% stenosis. Left external carotid artery: Unremarkable. No occlusion. Left vertebral artery: Unremarkable. No occlusion or significant stenosis. No dissection. NECK: Bones/joints: Unremarkable. Soft tissues: Unremarkable. Lung apices: Clear. CAROTID STENOSIS REFERENCE USING NASCET CRITERIA: % ICA stenosis = (1 - narrowest ICA diameter/diameter of distal cervical ICA) x 100. Mild - <50% stenosis. Moderate - 50-69% stenosis. Severe - 70-94% stenosis. Near occlusion - 95-99% stenosis. Occluded - 100% stenosis. IMPRESSION: 1. Moderate atherosclerotic plaque within the left carotid bulb causing up to 40% stenosis. 2. Moderate calcified plaque within the distal common carotid artery and carotid bulb causing up to 30% stenosis. 3. 80% stenosis at the origin of the right vertebral artery. Electronically signed by: Isaac Lawton M.D. 07/04/23 03:38 AM
--- NOTE | 2023-07-04 03:46 | CT Scan Report ---
Exam(s): CTA HEAD With Contrast IV Amt: 118 cc's of optiray 350 EXAM: CT Angiography Head With Intravenous Contrast CLINICAL HISTORY: Reason for exam: neuro deficit, acute stroke suspected. TECHNIQUE: Axial computed tomographic angiography images of the head with intravenous contrast. CTDI is 37.95 mGy and DLP is 1114.74 mGy-cm. Automated exposure control was utilized for the study. A dose lowering technique was utilized adhering to the principles of ALARA. MIP reconstructed images were created and reviewed. CONTRAST: Patient received 118 cc's of optiray 350 of IV contrast COMPARISON: No relevant prior studies available. FINDINGS: Right internal carotid artery: No acute findings. Intracranial segment is patent with no significant stenosis. No aneurysm. Right anterior cerebral artery: Unremarkable. No occlusion or significant stenosis. No aneurysm. Right middle cerebral artery: Unremarkable. No occlusion or significant stenosis. No aneurysm. Right posterior cerebral artery: Small vessel atherosclerotic disease. No occlusion. No aneurysm. Right vertebral artery: Severe greater than 90% focal stenosis of the distal right vertebral artery just proximal to the confluence of the basilar artery. 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 No aneurysm. Left anterior cerebral artery: Unremarkable. No occlusion or significant stenosis. No aneurysm. Left middle cerebral artery: Unremarkable. No occlusion or significant stenosis. No aneurysm. Left posterior cerebral artery: Unremarkable. No occlusion or significant stenosis. No aneurysm. Left vertebral artery: Fenestrated distal intracranial left vertebral artery. Basilar artery: Unremarkable. No occlusion or significant stenosis. No aneurysm. IMPRESSION: 1. No large vessel intracranial occlusion. 2. Severe greater than 90% focal stenosis of the distal right vertebral artery just proximal to the confluence of the basilar artery. 3. 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 Electronically signed by: Isaac Lawton M.D. 07/04/23 03:45 AM
[2023-07-04] MEDS ORDERED: cefTRIAXone SODIUM 1,000 MG in DEXTROSE 5% 50 ML IV SCH (04:00)
[2023-07-04] MEDS ORDERED: cefTRIAXone SODIUM 1,000 MG in DEXTROSE 5% 50 ML IV ONE (04:00)
[2023-07-04] MEDS ORDERED: SODIUM CHLORIDE 0.9% 1,000 ML IV ONE ×2 (04:05→21:00)
[2023-07-04] MEDS ORDERED: CEFEPIME 2,000 MG/20 ML VIAL IV STA (04:18)
[2023-07-04] MEDS ORDERED: ASPIRIN CHEW 324 MG PO STA (04:45)
--- NOTE | 2023-07-04 04:46 | History & Physical Report ---
Date of Service July 04, 2023 Assessment & Plan (1) Abnormal motor activity: Plan: Transient weakness which patient describes as difficulty maneuvering/getting up ? Possible TIA, past history CVA as per records ? Complicated UTI, possible sepsis (SIRS criteria met with tachycardic episode in the setting of patient's chronic leukopenia), hx BPH, history colovesical fistula status post surgery Hypertension elevated secondary to illness hx PAF, patient NSR with tachybradycardia noted at the ER PVD moderate aortic regurgitation hyperlipidemia, on statin Rx DM 2 insulin requiring, suboptimal control as of recent hemoglobin A1c of 8.9 this month past history of DVT as per records chronic anemia, hemoglobin at baseline past tobacco abuse Medical telemetry Neurochecks Aspirin for secondary stroke prevention MRI brain Re: Transient motor weakness Neurology consult contingent on MRI results Permissive hypertension until acute stroke ruled out Urine CS, Daptomycin and Cefepime on the basis of patient's microbiologic history Basal bolus insulin, ISS BG goal 1 10-1 40, carb count coverage PT OT eval DVT prophylaxis. Heparin subcu Full code Attempted to contact patient's (Ms. Yin Daugherty, contact #[phone]) to obtain additional history over the phone. No answer, left message for call back. Text document was generated using [employer] voice recognition software. It may contain grammatical or spelling errors. Kindly contact undersigned for clarification of any documentation item in question. History of Present Illness Chief Complaint: Trouble getting up from the couch, trouble maneuvering Primary Care Provider: Tarun Herrera MD History obtained from patient and records. Medical history significant for PAF, moderate aortic regurgitation, CVA, hypertension, hyperlipidemia, DM 2 insulin requiring, history of DVT as per records, chronic anemia (baseline hemoglobin 11-12), chronic neutropenia, BPH, history colovesical fistula status post surgery, past tobacco abuse. Last confinement January 2023 for sepsis secondary to catheter associated UTI. Urine CS grew Enterococcus faecalis. Patient discharged on Linezolid. Last night, patient had trouble getting up from the couch, trouble maneuvering. Patient seemed weak as per but patient denies symptoms. No headache, chest pain, SOB, abdominal/flank pain. Irregular intake of home aspirin as per patient. Patient brought to the ER for evaluation. 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 Allergies Allergy/AdvReac Type Severity Reaction Status Date / Time Penicillins Allergy Intermediate HIVES Verified 07/04/23 00:00 Sulfa (Sulfonamide Allergy Intermediate RASH Verified 07/04/23 00:00 Antibiotics) tree and shrub pollen Allergy Intermediate CONGESTION Verified 07/04/23 00:00 Home Medications Medication Instructions Recorded Confirmed Type flash glucose scanning reader #1 ea 12/30/22 06/14/23 Rx (FreeStyle Clementine 2 Hes[place]us) atenolol 25 mg tablet 25 mg PO QAM #30 tabs 01/27/23 07/04/23 Rx azelastine 137 mcg (0.1 %) nasal 2 spray intranasal BID PRN 01/27/23 07/04/23 Rx spray aerosol Congestion #30 mL valacyclovir 1 gram tablet 1,000 mg PO BID #60 tabs 01/27/23 07/04/23 Rx insulin glargine 100 unit/mL (3 15 unit subcut DAILY 02/01/23 07/04/23 History mL) subcutaneous pen (Lantus Solostar U-100 Insulin) needle (disp) 32 gauge 32 gauge x #400 ea 03/01/23 06/14/23 Rx 5/16" flash glucose sensor (FreeStyle #2 ea 03/06/23 06/14/23 Rx Clementine 2 Sensor kit) diphenoxylate-atropine 2.5 1 tab PO BID PRN Diarrhea 07/04/23 07/04/23 History mg-0.025 mg tablet (Lomotil) finasteride 5 mg tablet (Proscar) 5 mg PO QAM PRN NEEDED PER 07/04/23 07/04/23 History PT/GMG insulin NPH-regular 70-30 U-100 See Rx Instructions .Route .COMPLEX 07/04/23 07/04/23 History insulin 100 unit/mL subcutaneous pen (Novolin 70-30 FlexPen U-100 Insulin) losartan 25 mg tablet 25 mg PO DIRECTED 07/04/23 07/04/23 History melatonin 3 mg tablet 3 mg PO HS 07/04/23 07/04/23 History terazosin 2 mg capsule 2 mg PO HS 07/04/23 07/04/23 History Past Med/Surg History Medical History Actinic keratosis BPH (benign prostatic hyperplasia) 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) Diverticulitis (07/23/14) Diverticulitis DM (diabetes mellitus) DVT (deep venous thrombosis) H/O prostatitis HTN (hypertension) Incomplete emptying of bladder (11/03/14) Left leg DVT PAF (paroxysmal atrial fibrillation) PMR (polymyalgia rheumatica) Postoperative urethral stricture Sensorineural hearing loss of both ears Urinary retention UTI (lower urinary tract infection) UTI (lower urinary tract infection) Surgical History History of back surgery History of knee surgery History of surgery S/P TURP Family History Other Family history non-contributory Heart disease No family history of adverse response to anesthesia No family history of bleeding disorder Denies family history of Ovarian cancer Prostate cancer Myocardial infarction Breast cancer Colorectal cancer Social History Smoking Status: Never smoker Second Hand Exposure: No; Do You Dip or Chew Tobacco: No; Hx Alcohol Use: No Hx Substance Use: No Preferred Language: Cambodian Communication Ability: Effective Visual Impairment: No Limitations Hearing Ability: Hard of Hearing [place] Hand Required: No Beliefs That Will Affect Care: None marital status: Current Living Situation: Spouse current occupational status: retired How many Children do You have: 3 Feels Safe at Home: Yes Safety Concerns: Feels Safe At This Time Childhood Exposure to Second-Hand Smoke: No Diet: regular Dental Care, Regularly: Yes Physical Activity Frequency: 3-4 Times per Week Seatbelt Use: always Sunscreen Use: No Assistive Devices: Cane Review of Systems Review of Systems: As per HPI, all other systems reviewed and negative Physical Exam Physical Exam: GENERAL: Comfortable, slightly hard of hearing, underweight, no respiratory distress SKIN: Pallor, warm HEENT: Pale palpebral conjunctivae, no ptosis, dry buccal mucosa NECK : Supple, no tenderness CHEST : CTA, no tenderness HEART : RRR, no obvious murmurs ABDOMEN: Some distention, nontender EXTREMITIES : No LE swelling/tenderness, no other conspicuous deformities noted NEUROLOGIC : Coherent, no facial asymmetry, slightly hard of hearing, MMTS BUE/BLE 4/5, gait and stance not assessed Results & Data Results & Data Vital Signs (Past 12 Hours) Vital Signs Temp Pulse Resp BP Pulse Ox O2 Del Method 07/03/23 23:19 79 07/04/23 03:00 82 22 07/04/23 02:30 68 13 07/04/23 02:06 130 H 16 95 07/04/23 01:30 57 L 14 07/04/23 01:00 51 L 15 07/04/23 00:30 70 15 07/04/23 00:00 76 16 96 07/03/23 23:30 89 15 97 07/03/23 23:10 94 H 16 07/04/23 01:53 37.1 C 07/03/23 23:15 Room Air 07/03/23 23:15 Room Air 07/03/23 23:01 37.6 C H 70 14 109/65 97 Room Air Laboratory Results Laboratory Results WBC 2.03 K/ul (4.8-10.8) L 07/03/23 23:11 RBC 4.26 M/uL (4.70-6.10) L 07/03/23 23:11 Hgb 13.4 g/dl (14.0-18.0) L 07/03/23 23:11 Hct 38.0 % (42.0-52.0) L 07/03/23 23:11 MCV 89.2 fL (80.0-100.0) 07/03/23 23:11 MCH 31.5 pg (25.0-34.0) 07/03/23 23:11 MCHC 35.3 g/dL (32.0-36.0) 07/03/23 23:11 RDW Std Deviation 44.9 fL (36.4-46.3) 07/03/23 23:11 RDW Coeff of Nam 13.6 % (11.5-14.5) 07/03/23 23:11 Plt Count 187 K/uL (130-400) 07/03/23 23:11 MPV 9.3 fL (9.4-12.4) L 07/03/23 23:11 Immature Gran % (Auto) 1.5 % 07/03/23 23:11 Neut % (Auto) 59.6 % 07/03/23 23:11 Lymph % (Auto) 33.5 % 07/03/23 23:11 Josephine % (Auto) 3.4 % 07/03/23 23:11 Eos % (Auto) 1.5 % 07/03/23 23:11 Baso % (Auto) 0.5 % 07/03/23 23:11 Neut # (Auto) 1.21 K/uL (1.40-6.50) L 07/03/23 23:11 Lymph # (Auto) 0.68 K/uL (1.20-3.40) L 07/03/23 23:11 Josephine # (Auto) 0.07 K/uL (0.11-0.59) L 07/03/23 23:11 Eos # (Auto) 0.03 K/uL (0.00-0.50) 07/03/23 23:11 Baso # (Auto) 0.01 K/uL (0.00-0.20) 07/03/23 23:11 Immature Gran # (Auto) 0.03 K/uL (0.01-0.20) 07/03/23 23:11 PT 13.4 Seconds (9.0-12.0) H 07/03/23 23:11 INR 1.2 (0.9-1.1) H 07/03/23 23:11 APTT 33.8 Seconds (21.0-31.0) H 07/03/23 23:11 PTT Ratio 1.2 07/03/23 23:11 Sodium 135 mmol/L (136-145) L 07/03/23 23:11 Potassium 4.3 mmol/L (3.5-5.1) 07/03/23 23:11 Chloride 103 mmol/L (98-107) 07/03/23 23:11 Carbon Dioxide 25 mmol/L (21-32) 07/03/23 23:11 Anion Gap 7 (3-11) 07/03/23 23:11 BUN 26 mg/dl (6-23) H 07/03/23 23:11 Creatinine 1.16 mg/dl (0.6-1.4) 07/03/23 23:11 Est Cr Clr Drug Dosing 35.5 ml/min 07/03/23 23:11 Est GFR ( Amer) 65.3 ml/min 07/03/23 23:11 Est GFR (Non-Af Amer) 56.3 ml/min 07/03/23 23:11 BUN/Creatinine Ratio 22.4 (10-20) H 07/03/23 23:11 Glucose 167 mg/dl (70-99(Fasting)) H 07/03/23 23:11 Lactate 1.6 mmol/L (0.4-2.0) 07/03/23 23:11 Calcium 8.4 mg/dl (8.6-10.3) L 07/03/23 23:11 Magnesium 1.6 mg/dl (1.7-2.4) L 07/04/23 02:16 Total Bilirubin 1.8 mg/dl (0.2-1.0) H 07/03/23 23:11 AST 11 U/L (13-39) L 07/03/23 23:11 ALT 10 U/L (7-52) 07/03/23 23:11 Alkaline Phosphatase 75 U/L (34-104) 07/03/23 23:11 Troponin I High Sens 7.5 pg/ml (0-20) 07/04/23 02:16 Total Protein 6.1 gm/dl (6.0-8.3) 07/03/23 23:11 Albumin 3.8 gm/dl (3.4-5.0) 07/03/23 23:11 Globulin 2.3 gm/dl (2.5-4.0) L 07/03/23 23:11 Albumin/Globulin Ratio 1.7 (0.9-2) 07/03/23 23:11 Urine Color Yellow 07/04/23 Unknown Urine Appearance Turbid (Clear) A 07/04/23 Unknown Urine pH 5.5 (4.5-7.5) 07/04/23 Unknown Ur Specific [place] 1.017 (1.000-1.030) 07/04/23 Unknown Urine Protein 1+ (Negative) H 07/04/23 Unknown Urine Glucose (UA) 2+ (Negative) H 07/04/23 Unknown Urine Ketones Negative (Negative) 07/04/23 Unknown Urine Blood 2+ (Negative) H 07/04/23 Unknown Urine Nitrite Negative (Negative) 07/04/23 Unknown Urine Bilirubin Negative (Negative) 07/04/23 Unknown Urine Urobilinogen Negative (Negative) 07/04/23 Unknown Ur Leukocyte Esterase 3+ (Negative) H 07/04/23 Unknown Urine WBC (Auto) >30 /hpf (0-5) H 07/04/23 Unknown Urine RBC (Auto) 0-4 /hpf (0-4) 07/04/23 Unknown U Hyaline Cast (Auto) 1-5 /lpf (0-5) 07/04/23 Unknown U Epithel Cells (Auto) 10-20 /lpf (0-5) H 07/04/23 Unknown Urine Bacteria (Auto) 4+ (Negative) H 07/04/23 Unknown Urine Yeast Not Reportable 07/04/[address] 07/04/23 01:05 Exam(s): CT HEAD Without Contrast EXAM: CT Head Without Intravenous Contrast CLINICAL HISTORY: Reason for exam: neuro deficit, acute stroke suspected. TECHNIQUE: Axial computed tomography images of the head/brain without intravenous contrast. CTDI is 20.76 mGy and DLP is 1114.74 mGy-cm. Automated exposure control was utilized for the study. A dose lowering technique was utilized adhering to the principles of ALARA. COMPARISON: 12/27/2021 FINDINGS: Brain: Moderate periventricular white matter changes, likely related to microangiopathy. No hemorrhage. Ventricles: Unremarkable. No ventriculomegaly. Bones/joints: Unremarkable. No acute fracture. Soft tissues: Unremarkable. Sinuses: Mucosal thickening of the right maxillary sinus. Mastoid air cells: Unremarkable as visualized. No mastoid effusion. IMPRESSION: Moderate periventricular white matter changes, likely related to microangiopathy. Electronically signed by: Isaac Lawton M.D. 07/04/23 03:31 AM Head CTA 07/04/23 01:05 Exam(s): CTA HEAD With Contrast IV Amt: 118 cc's of optiray 350 EXAM: CT Angiography Head With Intravenous Contrast CLINICAL HISTORY: Reason for exam: neuro deficit, acute stroke suspected. TECHNIQUE: Axial computed tomographic angiography images of the head with intravenous contrast. CTDI is 37.95 mGy and DLP is 1114.74 mGy-cm. Automated exposure control was utilized for the study. A dose lowering technique was utilized adhering to the principles of ALARA. MIP reconstructed images were created and reviewed. CONTRAST: Patient received 118 cc's of optiray 350 of IV contrast COMPARISON: No relevant prior studies available. FINDINGS: Right internal carotid artery: No acute findings. Intracranial segment is patent with no significant stenosis. No aneurysm. Right anterior cerebral artery: Unremarkable. No occlusion or significant stenosis. No aneurysm. Right middle cerebral artery: Unremarkable. No occlusion or significant stenosis. No aneurysm. Right posterior cerebral artery: Small vessel atherosclerotic disease. No occlusion. No aneurysm. Right vertebral artery: Severe greater than 90% focal stenosis of the distal right vertebral artery just proximal to the confluence of the basilar artery. 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 No aneurysm. Left anterior cerebral artery: Unremarkable. No occlusion or significant stenosis. No aneurysm. Left middle cerebral artery: Unremarkable. No occlusion or significant stenosis. No aneurysm. Left posterior cerebral artery: Unremarkable. No occlusion or significant stenosis. No aneurysm. Left vertebral artery: Fenestrated distal intracranial left vertebral artery. Basilar artery: Unremarkable. No occlusion or significant stenosis. No aneurysm. IMPRESSION: 1. No large vessel intracranial occlusion. 2. Severe greater than 90% focal stenosis of the distal right vertebral artery just proximal to the confluence of the basilar artery. 3. 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 Electronically signed by: Isaac Lawton M.D. 07/04/23 03:45 AM Neck CTA 07/04/23 01:05 Exam(s): CTA NECK With Contrast IV Amt: 118 cc's of optiray 350 EXAM: CT Angiography Neck With Intravenous Contrast CLINICAL HISTORY: Reason for exam: neuro deficit, acute stroke suspected. TECHNIQUE: Routine carotid CT angiography protocol was performed with intravenous contrast. NASCET criteria using the distal ICAs for comparison were used for evaluation of stenoses. CTDI is 37.95 mGy and DLP is 1114.74 mGy-cm. Automated exposure control was utilized for the study. A dose lowering technique was utilized adhering to the principles of ALARA. MIP reconstructed images were created and reviewed. CONTRAST: Patient received 118 cc's of optiray 350 of IV contrast COMPARISON: None. FINDINGS: VASCULATURE: Right common carotid artery: Moderate calcified plaque within the distal common carotid artery and carotid bulb causing up to 30% stenosis. No dissection. Right internal carotid artery: See above. Right external carotid artery: Unremarkable. No occlusion. Right vertebral artery: 80% stenosis at the origin of the right vertebral artery. No dissection. Left common carotid artery: Mild atherosclerotic disease of the distal left common carotid artery without hemodynamically significant stenosis. Left internal carotid artery: Moderate atherosclerotic plaque within the left carotid bulb causing up to 40% stenosis. Left external carotid artery: Unremarkable. No occlusion. Left vertebral artery: Unremarkable. No occlusion or significant stenosis. No dissection. NECK: Bones/joints: Unremarkable. Soft tissues: Unremarkable. Lung apices: Clear. CAROTID STENOSIS REFERENCE USING NASCET CRITERIA: % ICA stenosis = (1 - narrowest ICA diameter/diameter of distal cervical ICA) x 100. Mild - <50% stenosis. Moderate - 50-69% stenosis. Severe - 70-94% stenosis. Near occlusion - 95-99% stenosis. Occluded - 100% stenosis. IMPRESSION: 1. Moderate atherosclerotic plaque within the left carotid bulb causing up to 40% stenosis. 2. Moderate calcified plaque within the distal common carotid artery and carotid bulb causing up to 30% stenosis. 3. 80% stenosis at the origin of the right vertebral artery. Electronically signed by: Isaac Lawton M.D. 07/04/23 03:38 AM Diagnostic Findings EKG as per my interpretation : Rate 75, NSR, RBBB, 1 AVB, normal axis, T wave flattening inferior leads
[2023-07-04] MEDS: MAGNESIUM SULFATE / D5W 1 GM/100 ML BAG IV SCH ×2 (05:08→07:16)
[2023-07-04] MEDS ORDERED: PROMETHAZINE HCL 6.25 MG in SODIUM CHLORIDE 0.9% 50 ML IV PRN (05:44)
[2023-07-04] MEDS ORDERED: DIPHENOXYLATE/ATROPINE 2.5/0.025MG TAB PO PRN (05:44)
[2023-07-04] MEDS ORDERED: traMADol HCL 50 MG TABLET PO PRN (05:44)
[2023-07-04] MEDS ORDERED: DEXTROSE 50% 50 ML SYRINGE IV PRN (05:44)
[2023-07-04] MEDS ORDERED: GLUCOSE 40% GEL 15 GM TUBE PO PRN (05:44)
[2023-07-04] MEDS ORDERED: PHARMACIST DISCHARGE MED REC CONSULT PRN (05:44)
[2023-07-04] MEDS ORDERED: GLUCOSE 10 TAB/TUBE PO PRN (05:44)
[2023-07-04] MEDS ORDERED: CARBOHYDRATES FOR HYPOGLYCEMIA PO PRN (05:44)
[2023-07-04] MEDS ORDERED: FINASTERIDE 5 MG TAB PO PRN (05:44)
[2023-07-04] MEDS ORDERED: GLUCAGON FOR INJ 1 MG VIAL SQ PRN (05:44)
[2023-07-04] MEDS ORDERED: ACETAMINOPHEN 325 MG TAB PO PRN (05:44)
[2023-07-04 05:57] LABS: Lyme Ab IgG w/WB Rflx Negative (Negative); Lyme Ab IgM w/WB Rflx Negative (Negative)
[2023-07-04] MEDS: INSULIN ASPART PER UNIT CHARGE SC SCH ×4 (06:15→20:52)
[2023-07-04] MEDS: DAPTOmycin 350 MG in SYRINGE 0 ML IV SCH (06:18)
[2023-07-04] MEDS: ATENOLOL 25 MG TABLET PO SCH (07:21)
--- NOTE | 2023-07-04 07:58 | XRay Report ---
XR chest 1V not portable HISTORY: Chest pain, nonspecific COMPARISON: Chest 01/21/2023. FINDINGS: Small linear scarlike density within the right midlung zone. Otherwise, the lungs are clear .. Cardiac silhouette is normal in size. No pleural effusions. No pneumothorax. Scoliosis. This may b e positional. IMPRESSION: No acute process. ACT 112: Negative or not required by law. Electronically signed by: Rodney Yo M.D. 07/04/2023 7:57 AM
[2023-07-04] MEDS ORDERED: LANTUS PER UNIT CHARGE SQ SCH (09:00)
[2023-07-04] MEDS ORDERED: ATENOLOL 25 MG TABLET PO SCH (09:00)
--- NOTE | 2023-07-04 09:24 | Electrocardiogram Report ---
Test Reason : Blood Pressure : / mmHG Vent. Rate : 077 BPM Atrial Rate : 077 BPM P-R Int : 248 ms QRS Dur : 128 ms QT Int : 386 ms P-R-T Axes : 099 075 045 degrees QTc Int : 436 ms Poor data quality, interpretation may be adversely affected Sinus rhythm with 1st degree A-V block Right bundle branch block Abnormal ECG When compared with ECG of 21-JAN-2023 15:07, Premature atrial complexes are no longer Present Criteria for Septal infarct are no longer Present Confirmed by Henry Carbajal ([id number]) on 07/04/2023 9:24:22 AM Referred By: REFERRED SELF Confirmed By:Henry Carbajal
[2023-07-04] MEDS: LANTUS PER UNIT CHARGE SQ SCH (09:59)
--- NOTE | 2023-07-04 13:55 | Magnetic Resonance Report ---
Brain MRI WITHOUT CONTRAST HISTORY: Bilateral lower extremity weakness. Transient ischemic attack. TECHNIQUE: Multiplanar multisequence MRI of the brain was performed without the use of contrast. COMPARISON STUDY: Head CT 07/04/2023. FINDINGS: There is no mass, hematoma, midline shift, or acute infarct. The paranasal sinuses are nancy r. The mastoid air cells are clear. The ventricles and sulci demonstrate moderate age-related involut ional changes. Scattered foci of T2 hyperintensity seen within the periventricular and subcortical wh ite matter are nonspecific but suggestive of moderate microvascular ischemic changes. The major vascu lar flow voids at the skull base are well-maintained. Mild mucosal thickening and a small retention c yst within the right maxillary sinus. Prior bilateral lens replacement. IMPRESSION: 1. No acute infarct or intracranial hemorrhage. 2. Moderate atrophy and presumed moderate microvascular ischemic changes. ACT 112: Negative or not required by law. Electronically signed by: Rodney Yo M.D. 07/04/2023 1:52 PM
[2023-07-04] MEDS: CEFEPIME 2,000 MG in SYRINGE 0 ML IV SCH (17:59)
[2023-07-04] MEDS ORDERED: MELATONIN 3 MG TAB PO SCH (21:00)
[2023-07-04] MEDS ORDERED: Nursing to Pharmacy Communication SCH (21:00)
[2023-07-05] MEDS: CEFEPIME 2,000 MG in SYRINGE 0 ML IV SCH (05:06)
[2023-07-05] MEDS: DAPTOmycin 350 MG in SYRINGE 0 ML IV SCH (06:05)
[2023-07-05 06:39] LABS: BUN Creatinine Ratio 19.6 (10-20); Calcium 7.8 mg/dl (8.6-10.3); Chol HDL Ratio 2.7 (0-5); Creatinine Clr Calc Pharmacy 54.6 ml/min; Est GFR (African American) 86.4 ml/min; Est GFR (Non-African American) 74.5 ml/min; Potassium 3.6 mmol/L (3.5-5.1)
[2023-07-05 06:57] LABS: Hematocrit (blood only) 34.2 % (42.0-52.0); Mean Corpuscular Hemoglobin 31.2 pg (25.0-34.0); Mean Corpuscular Hgb Conc 35.1 g/dL (32.0-36.0); Mean Corpuscular Volume 88.8 fL (80.0-100.0); Platelet Count 198 K/uL (130-400); RDW Coefficient of Variation 13.7 % (11.5-14.5); RDW Standard Deviation 44.4 fL (36.4-46.3); Red Blood Count 3.85 M/uL (4.70-6.10)
[2023-07-05 07:55] LABS: Estimated Average Glucose 194 mg/dl; Hemoglobin A1C 8.4 % (4.5-5.6)
[2023-07-05 07:58] LABS: White Blood Count 1.54 K/ul (4.8-10.8)
[2023-07-05 08:03] LABS: Basophils # (auto) 0.01 K/uL (0.00-0.20); Basophils % (auto) 0.6 %; Eosinophils # (auto) 0.06 K/uL (0.00-0.50); Eosinophils % (auto) 3.9 %; Lymphocytes # (auto) 0.68 K/uL (1.20-3.40); Lymphocytes % (auto) 44.2 %; Monocytes # (auto) 0.06 K/uL (0.11-0.59); Monocytes % (auto) 3.9 %; Neutrophils # (auto) 0.73 K/uL (1.40-6.50); Neutrophils % (auto) 47.4 %
[2023-07-05 08:04] LABS: Dohle Bodies 1+
[2023-07-05] MEDS: INSULIN ASPART PER UNIT CHARGE SC SCH ×2 (08:43→12:50)
[2023-07-05] MEDS: LANTUS PER UNIT CHARGE SQ SCH (08:44)
[2023-07-05] MEDS: ATENOLOL 25 MG TABLET PO SCH (08:44)
[2023-07-05] MEDS ORDERED: ASPIRIN 81 MG ECTAB PO SCH (09:00)
--- NOTE | 2023-07-05 10:59 | Neurology Consultation ---
Date of Consultation July 05, 2023 Assessment & Plan (1) Spell of abnormal behavior: Patient presents with a spell at home of unclear etiology, He was aware during the event making seizure unlikely and without focal weakness this is unlikely to be a cerebrovascular phenomenon. Regardless, given the small vessel disease seen on MRI he would benefit from at least 81mg aspirin daily. These types of behavioral arrests can occur as patients age and in the setting of cognitive impairment. Would recommend he follow-up with neurology as an outpatient, otherwise no further inpatient workup from our perspective. Telehealth Consultation Telehealth Information Telehealth Information: I performed this visit using a real-time telehealth connection between my location and the patients location ([facility]). After connecting through interactive tele-video, patient was identified by name and date of and/or wristband check.Patient (or authorized healthcare shared services representative) was informed that this was a telemedicine visit and it was being conducted confidentially over secure lines. My office door was closed and no one else was present in the room with me.Patient (or authorized healthcare shared services representative) provided consent to proceed with the visit, expressed an understanding of privacy and security of the telemedicine visit, and gave permission to have a hospital shared services representative in the room in order to assist with the visit and to conduct portions of the visit, as needed. I informed the patient (or authorized healthcare shared services representative) that I reviewed their record and presented the opportunity for them to ask any questions regarding the visit today. The patient agreed to participate. History of Present Illness Reason for Consultation: Transient spell Requesting Physician: Dr. Garibay Attending Physician: Darrell Garibay MD History of Present Illness Juan Daugherty is an 87 yo M presenting with a spell at home where he had a behavioral pause, fell to his knees and was unable to stand. He reports this happened to him once before 10 years ago but not since. He does not remember being confused at all, only that he was too far away from any support to be able to help himself stand. He feels well today and wants to go home. Per notes, there was no focal weakness, no seizure-like activity. Regarding his afib he states that it was 10 years ago and he has had no afib since. No history of bleeding complications otherwise. Allergies Allergy/AdvReac Type Severity Reaction Status Date / Time Penicillins Allergy Intermediate HIVES Verified 07/04/23 00:00 Sulfa (Sulfonamide Allergy Intermediate RASH Verified 07/04/23 00:00 Antibiotics) tree and shrub pollen Allergy Intermediate CONGESTION Verified 07/04/23 00:00 Home Medications Medication Instructions Recorded Confirmed Type flash glucose scanning reader #1 ea 12/30/22 06/14/23 Rx (FreeStyle Clementine 2 [place]) atenolol 25 mg tablet 25 mg PO QAM #30 tabs 01/27/23 07/04/23 Rx azelastine 137 mcg (0.1 %) nasal 2 spray intranasal BID PRN 01/27/23 07/04/23 Rx spray aerosol Congestion #30 mL valacyclovir 1 gram tablet 1,000 mg PO BID #60 tabs 01/27/23 07/04/23 Rx insulin glargine 100 unit/mL (3 15 unit subcut DAILY 02/01/23 07/04/23 History mL) subcutaneous pen (Lantus Solostar U-100 Insulin) needle (disp) 32 gauge 32 gauge x #400 ea 03/01/23 06/14/23 Rx 5/16" flash glucose sensor (FreeStyle #2 ea 03/06/23 06/14/23 Rx Clementine 2 Sensor kit) diphenoxylate-atropine 2.5 1 tab PO BID PRN Diarrhea 07/04/23 07/04/23 History mg-0.025 mg tablet (Lomotil) finasteride 5 mg tablet (Proscar) 5 mg PO QAM PRN NEEDED PER 07/04/23 07/04/23 History PT/GMG insulin NPH-regular 70-30 U-100 See Rx Instructions .Route .COMPLEX 07/04/23 07/04/23 History insulin 100 unit/mL subcutaneous pen (Novolin 70-30 FlexPen U-100 Insulin) losartan 25 mg tablet 25 mg PO DIRECTED 07/04/23 07/04/23 History melatonin 3 mg tablet 3 mg PO HS 07/04/23 07/04/23 History terazosin 2 mg capsule 2 mg PO HS 07/04/23 07/04/23 History Patient History Medical History Actinic keratosis BPH (benign prostatic hyperplasia) 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) Diverticulitis (07/23/14) Diverticulitis DM (diabetes mellitus) DVT (deep venous thrombosis) H/O prostatitis HTN (hypertension) Incomplete emptying of bladder (11/03/14) Left leg DVT PAF (paroxysmal atrial fibrillation) PMR (polymyalgia rheumatica) Postoperative urethral stricture Sensorineural hearing loss of both ears Urinary retention UTI (lower urinary tract infection) UTI (lower urinary tract infection) Surgical History History of back surgery History of knee surgery History of surgery S/P TURP Family History Other Family history non-contributory Heart disease No family history of adverse response to anesthesia No family history of bleeding disorder Denies family history of Ovarian cancer Prostate cancer Myocardial infarction Breast cancer Colorectal cancer Social History Smoking Status: Never smoker Second Hand Exposure: No; Do You Dip or Chew Tobacco: No; Hx Alcohol Use: Yes Alcohol type: beer Hx Substance Use: No Preferred Language: Korean Communication Ability: Effective Visual Impairment: No Limitations Hearing Ability: Hard of Hearing Supervisor Scrap Preparation Required: No Beliefs That Will Affect Care: None marital status: Current Living Situation: Spouse Current Living Situation Comment: Single family home current occupational status: retired How many Children do You have: 3 Feels Safe at Home: Yes Safety Concerns: Feels Safe At This Time Childhood Exposure to Second-Hand Smoke: No Diet: regular Dental Care, Regularly: Yes Physical Activity Frequency: 3-4 Times per Week Seatbelt Use: always Sunscreen Use: No Assistive Devices: None Review of Systems +spell Physical Exam Neurological Examination: Mental Status: Awake and alert. Oriented to person, place, and time. Fluent. Comprehension intact. Affect appropriate. Cranial Nerves: II: Reads NIHSS cards, pupils 3/3 to 2/2, moody grossly intact. III/IV/: Versions intact without nystagmus, no gaze preference. V: Facial sensation symmetric to light touch VII: Facial expression symmetric VIII: Hearing intact to voice IX/X: Palate elevates symmetrically XI: Shoulder shrug symmetric XII: Tongue midline Motor: Strength was symmetric and antigravity throughout. Pronator drift was absent. There were no abnormal movements. Sensory: Sensation to light touch was intact. Coordination: Finger to nose was intact. Reflexes: Unable to assess over telemedicine Results & Data Vital Signs (Past 12 Hours) Vital Signs Temp Pulse Pulse Resp BP BP Pulse Ox 07/05/23 08:10 36.6 C 70 18 165/70 H 97 07/05/23 07:16 71 07/05/23 05:20 36.7 C 66 20 180/68 H 97 07/05/23 00:12 36.8 C 66 20 147/63 H 96 07/05/23 00:00 70 O2 Del Method 07/05/23 08:10 Room Air 07/05/23 07:16 07/05/23 05:20 Room Air 07/05/23 00:12 Room Air 07/05/23 00:00 Laboratory Results Abnormal lab results 07/04/23 07/05/23 07/05/23 Range/Units 17:17 06:06 06:06 WBC 1.54 L (4.8-10.8) K/ul RBC 3.85 L (4.70-6.10) M/uL Hgb 12.0 L (14.0-18.0) g/dl Hct 34.2 L (42.0-52.0) % MPV 9.0 L (9.4-12.4) fL Neut # (Auto) 0.73 L* (1.40-6.50) K/uL Lymph # (Auto) 0.68 L (1.20-3.40) K/uL [place] # (Auto) 0.06 L (0.11-0.59) K/uL Immature Gran # (Auto) 0.00 L (0.01-0.20) K/uL Chloride 108 H (98-107) mmol/L POC Glucose 114 H (70-99) mg/dl Hemoglobin A1c (4.5-5.6) % Calcium 7.8 L (8.6-10.3) mg/dl 07/05/23 Range/Units 06:06 WBC (4.8-10.8) K/ul RBC (4.70-6.10) M/uL Hgb (14.0-18.0) g/dl Hct (42.0-52.0) % MPV (9.4-12.4) fL Neut # (Auto) (1.40-6.50) K/uL Lymph # (Auto) (1.20-3.40) K/uL [place] # (Auto) (0.11-0.59) K/uL Immature Gran # (Auto) (0.01-0.20) K/uL Chloride (98-107) mmol/L POC Glucose (70-99) mg/dl Hemoglobin A1c 8.4 H (4.5-5.6) % Calcium (8.6-10.3) mg/dl Diagnostic Findings MRI brain - Unremarkable CTA - <50% stenosis bilateral ICAs, possible 80% stenosis of R vert origin
--- NOTE | 2023-07-05 18:45 | Hospitalist Progress Note ---
Date of Service July 05, 2023 Assessment & Plan (1) Abnormal motor activity: Plan: Transient weakness which patient describes as difficulty maneuvering/getting up ? Possible TIA, past history CVA as per records ? Complicated UTI, possible sepsis (SIRS criteria met with tachycardic episode in the setting of patient's chronic leukopenia), hx BPH, history colovesical fistula status post surgery - Brain MRI: 1. No acute infarct or intracranial hemorrhage. 2. Moderate atrophy and presumed moderate microvascular ischemic changes. - CT Angio , head and neck: 1. No large vessel intracranial occlusion. 2. Severe greater than 90% focal stenosis of the distal right vertebral artery just proximal to the confluence of the basilar artery. 3. 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 1. Moderate atherosclerotic plaque within the left carotid bulb causing up to 40% stenosis. 2. Moderate calcified plaque within the distal common carotid artery and carotid bulb causing up to 30% stenosis. 3. 80% stenosis at the origin of the right vertebral artery. - Neuro symptoms resolved Neurologist consulted, agree with ASA 81mg po daily advised patient and family to maintain adequate daily fluid intake - Urine culture: gram negative bacilli ff up final result discharged of Cefdinir 500mg BID x 8 days Hypertension elevated secondary to illness - continue Atenolol hx PAF, patient NSR with tachybradycardia noted at the ER PVD moderate aortic regurgitation hyperlipidemia, on statin Rx DM 2 insulin requiring, suboptimal control as of recent hemoglobin A1c of 8.9 this month past history of DVT as per records chronic anemia, hemoglobin at baseline past tobacco abuse plan of care discussed with patient and his over the phone in detail all questions answered they are understanding, agreeable, comfortable with the plan of care Admission and Anticipated Discharge Date Admission Date: July 04, 2023 Subjective ff up for possible TIA, UTI, etc seen resting in bed, comfortable somewhat irritable oriented, answers most questions appropriately states he feels fine overall denies focal weakness, numbness or any other neuro symptoms denies urinary symptoms, fever/chills no other symptoms very eager to return home Review of Systems Review of Systems: all noted and negative except for above Physical Exam Physical Exam: General- oriented x 2, not in distress, speaks in sentences with no effort or accessory muscle use Eyes- anicteric Neck- no JVD Lungs- clear breath sounds bilaterally, no crackles/wheezing Heart- normal rate, regular rhythm; no murmurs Abdomen- normal bowel sounds, nondistended, soft, nontender Extremities- no pretibial edema, no calf tenderness Neuro- alert, oriented x 2; no gross focal neurologic deficits Skin- warm & dry Results & Data Results & Data Vital Signs (Past 12 Hours) Vital Signs Temp Pulse Pulse Resp BP BP Pulse Ox 07/05/23 13:07 36.7 C 64 16 130/63 180/68 H 98 07/05/23 11:41 36.7 C 64 16 130/63 98 07/05/23 11:30 07/05/23 08:10 36.6 C 70 18 165/70 H 97 07/05/23 07:16 71 O2 Del Method 07/05/23 13:07 07/05/23 11:41 Room Air 07/05/23 11:30 Room Air 07/05/23 08:10 Room Air 07/05/23 07:16 all noted and reviewed including below
--- NOTE | 2023-07-05 18:47 | Discharge Summary ---
Discharge Summary Date of Service July 05, 2023 Notes For Next Care Provider Medication Changes From Visit Aspirin 81mg po daily Cefdinir 500mg BID x 8 days Admission HPI Per Admitting Provider History obtained from patient and records. Medical history significant for PAF, moderate aortic regurgitation, CVA, hypertension, hyperlipidemia, DM 2 insulin requiring, history of DVT as per records, chronic anemia (baseline hemoglobin 11-12), chronic neutropenia, BPH, history colovesical fistula status post surgery, past tobacco abuse. Last confinement January 2023 for sepsis secondary to catheter associated UTI. Urine CS grew Enterococcus faecalis. Patient discharged on Linezolid. Last night, patient had trouble getting up from the couch, trouble maneuvering. Patient seemed weak as per but patient denies symptoms. No headache, chest pain, SOB, abdominal/flank pain. Irregular intake of home aspirin as per patient. Patient brought to the ER for evaluation. 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 Admission Exam Per Admitting Provider GENERAL: Comfortable, slightly hard of hearing, underweight, no respiratory distress SKIN: Pallor, warm HEENT: Pale palpebral conjunctivae, no ptosis, dry buccal mucosa NECK : Supple, no tenderness CHEST : CTA, no tenderness HEART : RRR, no obvious murmurs ABDOMEN: Some distention, nontender EXTREMITIES : No LE swelling/tenderness, no other conspicuous deformities noted NEUROLOGIC : Coherent, no facial asymmetry, slightly hard of hearing, MMTS BUE/BLE 4/5, gait and stance not assessed Principal Dx & Hospital Course #1 = Principal Diagnosis (1) Abnormal motor activity: Transient weakness which patient describes as difficulty maneuvering/getting up ? Possible TIA, past history CVA as per records ? Complicated UTI, possible sepsis (SIRS criteria met with tachycardic episode in the setting of patient's chronic leukopenia), hx BPH, history colovesical fistula status post surgery - Brain MRI: 1. No acute infarct or intracranial hemorrhage. 2. Moderate atrophy and presumed moderate microvascular ischemic changes. - CT Angio , head and neck: 1. No large vessel intracranial occlusion. 2. Severe greater than 90% focal stenosis of the distal right vertebral artery just proximal to the confluence of the basilar artery. 3. 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 1. Moderate atherosclerotic plaque within the left carotid bulb causing up to 40% stenosis. 2. Moderate calcified plaque within the distal common carotid artery and carotid bulb causing up to 30% stenosis. 3. 80% stenosis at the origin of the right vertebral artery. - Neuro symptoms resolved Neurologist consulted, agree with ASA 81mg po daily advised patient and family to maintain adequate daily fluid intake - Urine culture: gram negative bacilli ff up final result discharged of Cefdinir 500mg BID x 8 days Hypertension elevated secondary to illness - continue Atenolol hx PAF, patient NSR with tachybradycardia noted at the ER PVD moderate aortic regurgitation hyperlipidemia, on statin Rx DM 2 insulin requiring, suboptimal control as of recent hemoglobin A1c of 8.9 this month past history of DVT as per records chronic anemia, hemoglobin at baseline past tobacco abuse plan of care discussed with patient and his over the phone in detail all questions answered they are understanding, agreeable, comfortable with the plan of care Discharge Exam General- oriented x 2, not in distress, speaks in sentences with no effort or accessory muscle use Eyes- anicteric Neck- no JVD Lungs- clear breath sounds bilaterally, no rales/wheezes Heart- normal rate, regular rhythm; no murmurs Abdomen- normal bowel sounds, nondistended, soft, nontender Extremities- no pretibial edema, no calf tenderness Neuro- alert, oriented x 2; no gross focal neurologic deficits Skin- warm & dry Updated Medication List Medication Instructions Recorded Confirmed Type flash glucose scanning reader #1 ea 12/30/22 06/14/23 Rx (FreeStyle Clementine 2 Homer) atenolol 25 mg tablet 25 mg PO QAM #30 tabs 01/27/23 07/04/23 Rx azelastine 137 mcg (0.1 %) nasal 2 spray intranasal BID PRN 01/27/23 07/04/23 Rx spray aerosol Congestion #30 mL valacyclovir 1 gram tablet 1,000 mg PO BID #60 tabs 01/27/23 07/04/23 Rx insulin glargine 100 unit/mL (3 15 unit subcut DAILY 02/01/23 07/04/23 History mL) subcutaneous pen (Lantus Solostar U-100 Insulin) needle (disp) 32 gauge 32 gauge x #400 ea 03/01/23 06/14/23 Rx 5/16" flash glucose sensor (FreeStyle #2 ea 03/06/23 06/14/23 Rx Clementine 2 Sensor kit) diphenoxylate-atropine 2.5 1 tab PO BID PRN Diarrhea 07/04/23 07/04/23 History mg-0.025 mg tablet (Lomotil) finasteride 5 mg tablet (Proscar) 5 mg PO QAM PRN NEEDED PER 07/04/23 07/04/23 History PT/GMG insulin NPH-regular 70-30 U-100 See Rx Instructions .Route .COMPLEX 07/04/23 07/04/23 History insulin 100 unit/mL subcutaneous pen (Novolin 70-30 FlexPen U-100 Insulin) melatonin 3 mg tablet 3 mg PO HS 07/04/23 07/04/23 History terazosin 2 mg capsule 2 mg PO HS 07/04/23 07/04/23 History aspirin 81 mg tablet,delayed 81 mg PO QAM #30 tabs 07/05/23 Rx release cefuroxime axetil 500 mg tablet 500 mg PO BID 8 days #16 tabs 07/05/23 Rx Hospital Stay Data Consultations 07/04/23 04:00 ED Decision to Admit Stat 07/04/23 15:48 Consult Neurology Routine Diagnostic Imagining Performed Laboratory Results WBC 1.54 K/ul (4.8-10.8) L 07/05/23 06:06 RBC 3.85 M/uL (4.70-6.10) L 07/05/23 06:06 Hgb 12.0 g/dl (14.0-18.0) L 07/05/23 06:06 Hct 34.2 % (42.0-52.0) L 07/05/23 06:06 MCV 88.8 fL (80.0-100.0) 07/05/23 06:06 MCH 31.2 pg (25.0-34.0) 07/05/23 06:06 MCHC 35.1 g/dL (32.0-36.0) 07/05/23 06:06 RDW Std Deviation 44.4 fL (36.4-46.3) 07/05/23 06:06 RDW Coeff of Nam 13.7 % (11.5-14.5) 07/05/23 06:06 Plt Count 198 K/uL (130-400) 07/05/23 06:06 MPV 9.0 fL (9.4-12.4) L 07/05/23 06:06 Immature Gran % (Auto) 0.0 % 07/05/23 06:06 Neut % (Auto) 47.4 % 07/05/23 06:06 Lymph % (Auto) 44.2 % 07/05/23 06:06 [place] % (Auto) 3.9 % 07/05/23 06:06 Eos % (Auto) 3.9 % 07/05/23 06:06 Baso % (Auto) 0.6 % 07/05/23 06:06 Neut # (Auto) 0.73 K/uL (1.40-6.50) L* 07/05/23 06:06 Lymph # (Auto) 0.68 K/uL (1.20-3.40) L 07/05/23 06:06 [place] # (Auto) 0.06 K/uL (0.11-0.59) L 07/05/23 06:06 Eos # (Auto) 0.06 K/uL (0.00-0.50) 07/05/23 06:06 Baso # (Auto) 0.01 K/uL (0.00-0.20) 07/05/23 06:06 Immature Gran # (Auto) 0.00 K/uL (0.01-0.20) L 07/05/23 06:06 Dohle Bodies 1+ 07/05/23 06:06 PT 13.4 Seconds (9.0-12.0) H 07/03/23 23:11 INR 1.2 (0.9-1.1) H 07/03/23 23:11 APTT 33.8 Seconds (21.0-31.0) H 07/03/23 23:11 PTT Ratio 1.2 07/03/23 23:11 Sodium 136 mmol/L (136-145) 07/05/23 06:06 Potassium 3.6 mmol/L (3.5-5.1) 07/05/23 06:06 Chloride 108 mmol/L (98-107) H 07/05/23 06:06 Carbon Dioxide 22 mmol/L (21-32) 07/05/23 06:06 Anion Gap 6 (3-11) 07/05/23 06:06 BUN 18 mg/dl (6-23) 07/05/23 06:06 Creatinine 0.92 mg/dl (0.6-1.4) 07/05/23 06:06 Est Cr Clr Drug Dosing 54.6 ml/min 07/05/23 06:06 Est GFR ( Amer) 86.4 ml/min 07/05/23 06:06 Est GFR (Non-Af Amer) 74.5 ml/min 07/05/23 06:06 BUN/Creatinine Ratio 19.6 (10-20) 07/05/23 06:06 Glucose 85 mg/dl (70-99(Fasting)) 07/05/23 06:06 POC Glucose 214 mg/dl (70-99) H 07/05/23 12:02 Estimat Average Glucose 194 mg/dl 07/05/23 06:06 Hemoglobin A1c 8.4 % (4.5-5.6) H 07/05/23 06:06 Lactate 0.8 mmol/L (0.4-2.0) 07/04/23 05:02 Calcium 7.8 mg/dl (8.6-10.3) L 07/05/23 06:06 Magnesium 1.6 mg/dl (1.7-2.4) L 07/04/23 02:16 Total Bilirubin 1.8 mg/dl (0.2-1.0) H 07/03/23 23:11 AST 11 U/L (13-39) L 07/03/23 23:11 ALT 10 U/L (7-52) 07/03/23 23:11 Alkaline Phosphatase 75 U/L (34-104) 07/03/23 23:11 Troponin I High Sens 7.5 pg/ml (0-20) 07/04/23 02:16 Total Protein 6.1 gm/dl (6.0-8.3) 07/03/23 23:11 Albumin 3.8 gm/dl (3.4-5.0) 07/03/23 23:11 Globulin 2.3 gm/dl (2.5-4.0) L 07/03/23 23:11 Albumin/Globulin Ratio 1.7 (0.9-2) 07/03/23 23:11 Triglycerides 62 mg/dl (0-150) 07/05/23 06:06 Cholesterol 76 mg/dl (0-200) 07/05/23 06:06 LDL Cholesterol, Calc 36 mg/dl 07/05/23 06:06 VLDL Cholesterol, Calc 12 mg/dl (0-30) 07/05/23 06:06 HDL Cholesterol 28 mg/dl 07/05/23 06:06 Cholesterol/HDL Ratio 2.7 (0-5) 07/05/23 06:06 TSH 1.294 uIu/ml (0.300-4.500) 07/04/23 05:02 Urine Color Yellow 07/04/23 Unknown Urine Appearance Turbid (Clear) A 07/04/23 Unknown Urine pH 5.5 (4.5-7.5) 07/04/23 Unknown Ur Specific [place] 1.017 (1.000-1.030) 07/04/23 Unknown Urine Protein 1+ (Negative) H 07/04/23 Unknown Urine Glucose (UA) 2+ (Negative) H 07/04/23 Unknown Urine Ketones Negative (Negative) 07/04/23 Unknown Urine Blood 2+ (Negative) H 07/04/23 Unknown Urine Nitrite Negative (Negative) 07/04/23 Unknown Urine Bilirubin Negative (Negative) 07/04/23 Unknown Urine Urobilinogen Negative (Negative) 07/04/23 Unknown Ur Leukocyte Esterase 3+ (Negative) H 07/04/23 Unknown Urine WBC (Auto) >30 /hpf (0-5) H 07/04/23 Unknown Urine RBC (Auto) 0-4 /hpf (0-4) 07/04/23 Unknown U Hyaline Cast (Auto) 1-5 /lpf (0-5) 07/04/23 Unknown U Epithel Cells (Auto) 10-20 /lpf (0-5) H 07/04/23 Unknown Urine Bacteria (Auto) 4+ (Negative) H 07/04/23 Unknown Urine Yeast Not Reportable 07/04/23 Unknown Lyme Disease IgG Ab Negative (Negative) 07/04/23 05:02 Lyme Disease IgM Ab Negative (Negative) 07/04/23 05:02 Impressions Chest X-Ray 07/03/23 23:15 XR chest 1V not portable HISTORY: Chest pain, nonspecific COMPARISON: Chest 01/21/2023. FINDINGS: Small linear scarlike density within the right midlung zone. Otherwise, the lungs are clear.. Cardiac silhouette is normal in size. No pleural effusions. No pneumothorax. Scoliosis. This may be positional. IMPRESSION: No acute process. ACT 112: Negative or not required by law. Electronically signed by: Rodney Yo M.D. 07/04/2023 7:[address] 07/04/23 01:05 Exam(s): CT HEAD Without Contrast EXAM: CT Head Without Intravenous Contrast CLINICAL HISTORY: Reason for exam: neuro deficit, acute stroke suspected. TECHNIQUE: Axial computed tomography images of the head/brain without intravenous contrast. CTDI is 20.76 mGy and DLP is 1114.74 mGy-cm. Automated exposure control was utilized for the study. A dose lowering technique was utilized adhering to the principles of ALARA. COMPARISON: 12/27/2021 FINDINGS: Brain: Moderate periventricular white matter changes, likely related to microangiopathy. No hemorrhage. Ventricles: Unremarkable. No ventriculomegaly. Bones/joints: Unremarkable. No acute fracture. Soft tissues: Unremarkable. Sinuses: Mucosal thickening of the right maxillary sinus. Mastoid air cells: Unremarkable as visualized. No mastoid effusion. IMPRESSION: Moderate periventricular white matter changes, likely related to microangiopathy. Electronically signed by: Isaac Lawton M.D. 07/04/23 03:31 AM Head CTA 07/04/23 01:05 Exam(s): CTA HEAD With Contrast IV Amt: 118 cc's of optiray 350 EXAM: CT Angiography Head With Intravenous Contrast CLINICAL HISTORY: Reason for exam: neuro deficit, acute stroke suspected. TECHNIQUE: Axial computed tomographic angiography images of the head with intravenous contrast. CTDI is 37.95 mGy and DLP is 1114.74 mGy-cm. Automated exposure control was utilized for the study. A dose lowering technique was utilized adhering to the principles of ALARA. MIP reconstructed images were created and reviewed. CONTRAST: Patient received 118 cc's of optiray 350 of IV contrast COMPARISON: No relevant prior studies available. FINDINGS: Right internal carotid artery: No acute findings. Intracranial segment is patent with no significant stenosis. No aneurysm. Right anterior cerebral artery: Unremarkable. No occlusion or significant stenosis. No aneurysm. Right middle cerebral artery: Unremarkable. No occlusion or significant stenosis. No aneurysm. Right posterior cerebral artery: Small vessel atherosclerotic disease. No occlusion. No aneurysm. Right vertebral artery: Severe greater than 90% focal stenosis of the distal right vertebral artery just proximal to the confluence of the basilar artery. 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 No aneurysm. Left anterior cerebral artery: Unremarkable. No occlusion or significant stenosis. No aneurysm. Left middle cerebral artery: Unremarkable. No occlusion or significant stenosis. No aneurysm. Left posterior cerebral artery: Unremarkable. No occlusion or significant stenosis. No aneurysm. Left vertebral artery: Fenestrated distal intracranial left vertebral artery. Basilar artery: Unremarkable. No occlusion or significant stenosis. No aneurysm. IMPRESSION: 1. No large vessel intracranial occlusion. 2. Severe greater than 90% focal stenosis of the distal right vertebral artery just proximal to the confluence of the basilar artery. 3. 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 Electronically signed by: Isaac Lawton M.D. 07/04/23 03:45 AM Neck CTA 07/04/23 01:05 Exam(s): CTA NECK With Contrast IV Amt: 118 cc's of optiray 350 EXAM: CT Angiography Neck With Intravenous Contrast CLINICAL HISTORY: Reason for exam: neuro deficit, acute stroke suspected. TECHNIQUE: Routine carotid CT angiography protocol was performed with intravenous contrast. NASCET criteria using the distal ICAs for comparison were used for evaluation of stenoses. CTDI is 37.95 mGy and DLP is 1114.74 mGy-cm. Automated exposure control was utilized for the study. A dose lowering technique was utilized adhering to the principles of ALARA. MIP reconstructed images were created and reviewed. CONTRAST: Patient received 118 cc's of optiray 350 of IV contrast COMPARISON: None. FINDINGS: VASCULATURE: Right common carotid artery: Moderate calcified plaque within the distal common carotid artery and carotid bulb causing up to 30% stenosis. No dissection. Right internal carotid artery: See above. Right external carotid artery: Unremarkable. No occlusion. Right vertebral artery: 80% stenosis at the origin of the right vertebral artery. No dissection. Left common carotid artery: Mild atherosclerotic disease of the distal left common carotid artery without hemodynamically significant stenosis. Left internal carotid artery: Moderate atherosclerotic plaque within the left carotid bulb causing up to 40% stenosis. Left external carotid artery: Unremarkable. No occlusion. Left vertebral artery: Unremarkable. No occlusion or significant stenosis. No dissection. NECK: Bones/joints: Unremarkable. Soft tissues: Unremarkable. Lung apices: Clear. CAROTID STENOSIS REFERENCE USING NASCET CRITERIA: % ICA stenosis = (1 - narrowest ICA diameter/diameter of distal cervical ICA) x 100. Mild - <50% stenosis. Moderate - 50-69% stenosis. Severe - 70-94% stenosis. Near occlusion - 95-99% stenosis. Occluded - 100% stenosis. IMPRESSION: 1. Moderate atherosclerotic plaque within the left carotid bulb causing up to 40% stenosis. 2. Moderate calcified plaque within the distal common carotid artery and carotid bulb causing up to 30% stenosis. 3. 80% stenosis at the origin of the right vertebral artery. Electronically signed by: Isaac Lawton M.D. 07/04/23 03:38 AM Brain MRI 07/04/23 05:44 Brain MRI WITHOUT CONTRAST HISTORY: Bilateral lower extremity weakness. Transient ischemic attack. TECHNIQUE: Multiplanar multisequence MRI of the brain was performed without the use of contrast. COMPARISON STUDY: Head CT 07/04/2023. FINDINGS: There is no mass, hematoma, midline shift, or acute infarct. The paranasal sinuses are clear. The mastoid air cells are clear. The ventricles and sulci demonstrate moderate age-related involutional changes. Scattered foci of T2 hyperintensity seen within the periventricular and subcortical white matter are nonspecific but suggestive of moderate microvascular ischemic changes. The major vascular flow voids at the skull base are well-maintained. Mild mucosal thickening and a small retention cyst within the right maxillary sinus. Prior bilateral lens replacement. IMPRESSION: 1. No acute infarct or intracranial hemorrhage. 2. Moderate atrophy and presumed moderate microvascular ischemic changes. ACT 112: Negative or not required by law. Electronically signed by: Rodney Yo M.D. 07/04/2023 1:52 PM Pending Results Patient Have Any Pending Studies at Discharge: No Discharge Instructions Given to Patient (Per Discharging Provider) PLEASE REFER TO YOUR NEW MEDICATION LIST AND FOLLOW INSTRUCTIONS CAREFULLY. YOUR NEW MEDICATION INCLUDE: Aspirin 81 mg daily-for prevention of stroke, always take with a full stomach to prevent gastritis/ulcers Cefuroxime-antibiotic for urinary tract infection Take a probiotic daily for at least 1 month. Please ensure adequate hydration daily. PLEASE CALL YOUR PRIMARY CARE PHYSICIAN OR RETURN TO THE ER IF WITH WORSENING OF SYMPTOMS, INCLUDING Confusion, weakness, fevers or chills, etc. FOLLOW UP WITH PRIMARY CARE PHYSICIAN OUTLINED ABOVE. Total Time Total Time Spent Total Time Spent (In Minutes): >30 minutes
== END 2023-07-05 14:19 | disposition home or self-care (01) | DRG 69 ==
LOC: ED 22:58 → EDINP 07-04 04:48 → 2N 07-04 05:44

== ENCOUNTER 2024-06-29 16:22 | Inpatient (IN) ==
--- NOTE | 2024-06-29 16:50 | Emergency Department Note ---
Impression & Plan Generalized weakness, Neutropenia, Acute hypokalemia ED Provider Note HISTORY OF PRESENT ILLNESS: Patient is an 88-year-old male presenting with weakness. Patient reports for the last week or so he has been having progressively worsening weakness in his bilateral lower extremities. Per 's report to EMS, the patient has been having episodes of confusion and urinary incontinence. On arrival to the ER, the patient denies any chest pain, shortness of breath, abdominal pain, nausea or vomiting. Denies any recent falls or head injuries. He denies any dysuria or hematuria. He reports "my legs are just really weak." Patient was hypotensive for EMS with a blood pressure 75/41 and he was given 500 cc of fluid and route with EMS. Patient denies any anticoagulation use. He denies any DVT or PE history. Denies any fevers. Denies any recent sick contact exposures. ROS: as above PHYSICAL EXAM: Constitutional: Patient appears in patient distress. HENT: Head: Normocephalic and atraumatic. Eyes: EOMI, PERRL Mouth/Throat: Mucous membranes moist. Neck: Trachea midline. Neck supple. Cardiovascular: RRR, No murmurs, rubs or gallops. Intact distal pulses. Pulmonary/Chest: No respiratory distress. Breath sounds clear and equal bilaterally. No wheezes or rales. Abdominal: Abdomen soft, no tenderness, rebound or guarding. Musculoskeletal: No edema, tenderness or deformity noted. Patient is able to straight leg raise bilaterally. Skin: Warm and dry. No rash, erythema, pallor or cyanosis Psychiatric: Appropriate mood and affect for situation. Neurological: Alert and keenly responsive. CN II-XII grossly intact, moving all extremities equally and fully. MDM: - Vitals signs showed hypertension and tachycardia - History obtained via patient. History as above. - Chronic conditions affecting care: HTN; DM-2; polymyalgia rheumatica; history of a DVT; BPH; paroxysmal Afib - Differential diagnoses include, but are not limited to: ACS; pneumonia; UTI; viral syndrome; CVA; intracranial hemorrhage - Order placed for continuous cardiac monitoring. At this time, monitor showed rate of 73 bpm with normal sinus rhythm, per my interpretation. - External medical records reviewed. Discharge summary dated 07/05/2023 was reviewed. Patient was admitted at that time for transient weakness. - EKG interpreted by myself showed normal sinus rhythm. Rate 88 bpm. QT 398. No acute ischemic changes. Note of a right bundle branch block. - Laboratory workup interpreted by myself showed leukopenia (WBC 0.39); neutropenia (neutrophils <0.50); normal INR; normal lactate; hypokalemia (K 3.0); hypocalcemia (Ca 8.0); normal troponin; normal BNP; negative procalcitonin - CXR negative for pneumonia, per my interpretation. Radiology notes pulmonary vascular congestion. - Viral respiratory panel negative - Patient given 1L NS in ER. - CT head wo contrast ordered. No obvious intracranial hemorrhage, per my interpretation. - Given patient's neutropenia, blood cultures were obtained. He is not having a fever, so no antibiotics were ordered at this time. Neutrophilic precautions were ordered. - Unclear etiology for the patient's weakness at this time. Urinalysis was ordered but not yet obtained. - Discussion was had with block and case maker about patient's case and need for admission - Hospitalist, Dr. Fonseca, consulted for admission - Patient admitted to [facility] service for further evaluation and management. ASSESSMENT AND PLAN: Diagnosis: Generalized weakness; neutropenia; acute hypokalemia Plan: Admit Past Med/Surg History Problem List (Updated 06/29/24 @ 20:50 by Saray Gimenez MD) Acute hypokalemia (Acute) Neutropenia (Acute) Generalized weakness (Acute) Acute UTI (Acute) TIA (transient ischemic attack) (Acute) Spell of abnormal behavior Abnormal motor activity Diabetes mellitus type 2 in nonobese Sepsis Acute on chronic urinary retention PAF (paroxysmal atrial fibrillation) Severe neutropenia (Acute) Acute hyperglycemia (Acute) Acute hypotension (Acute) BPH (benign prostatic hyperplasia) Neutropenia Hypotension Abnormal ECG Delirium Acute hyperglycemia (Acute) Ketoacidosis (Acute) Acute dehydration (Acute) Hyperkalemia (Acute) Seasonal allergies Sensorineural hearing loss of both ears DM (diabetes mellitus) (Chronic) HTN (hypertension) (Chronic) 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 Incomplete emptying of bladder (Chronic 11/03/14) Medical History Actinic keratosis BPH (benign prostatic hyperplasia) 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) Diverticulitis (07/23/14) Diverticulitis DM (diabetes mellitus) DVT (deep venous thrombosis) H/O prostatitis HTN (hypertension) Incomplete emptying of bladder (11/03/14) Left leg DVT PAF (paroxysmal atrial fibrillation) PMR (polymyalgia rheumatica) Postoperative urethral stricture Sensorineural hearing loss of both ears Urinary retention UTI (lower urinary tract infection) UTI (lower urinary tract infection) Surgical History History of back surgery History of knee surgery History of surgery S/P TURP Family History Other Family history non-contributory Heart disease No family history of adverse response to anesthesia No family history of bleeding disorder Denies family history of Ovarian cancer Prostate cancer Myocardial infarction Breast cancer Colorectal cancer Social History Smoking Status: Never smoker Second Hand Exposure: No; Do You Dip or Chew Tobacco: No; Hx Alcohol Use: Yes Alcohol type: beer Hx Substance Use: No Preferred Language: French Communication Ability: Effective Visual Impairment: No Limitations Hearing Ability: Hard of Hearing Casino Controller Required: No Beliefs That Will Affect Care: None marital status: Current Living Situation: Spouse Current Living Situation Comment: Single family home current occupational status: retired How many Children do You have: 3 Feels Safe at Home: Yes Childhood Exposure to Second-Hand Smoke: No Diet: regular Dental Care, Regularly: Yes Physical Activity Frequency: 3-4 Times per Week Seatbelt Use: always Sunscreen Use: No Assistive Devices: None Allergies Allergies Allergy/AdvReac Type Severity Reaction Status Date / Time Penicillins Allergy Intermediate HIVES Verified 06/12/24 15:10 Sulfa (Sulfonamide Allergy Intermediate RASH Verified 06/12/24 15:10 Antibiotics) tree and shrub pollen Allergy Intermediate CONGESTION Verified 06/12/24 15:10 Home Meds Home Medications Medication Instructions Recorded Confirmed diphenoxylate-atropine 2.5 1 tab PO BID PRN Diarrhea 07/04/23 06/12/24 mg-0.025 mg tablet (Lomotil) finasteride 5 mg tablet (Proscar) 5 mg PO QAM PRN NEEDED PER 07/04/23 12/13/23 PT/GMG terazosin 2 mg capsule 2 mg PO HS 07/04/23 12/13/23 insulin regular human 100 unit/mL 10 unit subcut BID 06/12/24 (3 mL) subcutaneous pen Previous Rx's Medication Instructions Recorded atenolol 25 mg tablet 25 mg PO QAM #30 tabs 01/27/23 azelastine 137 mcg (0.1 %) nasal 2 spray intranasal BID PRN 01/27/23 spray Congestion #30 mL valacyclovir 1 gram tablet 1,000 mg PO BID #60 tabs 01/27/23 needle (disp) 32 gauge 32 gauge x #400 ea 03/01/23/" aspirin 81 mg tablet,delayed 81 mg PO QAM #30 tabs 07/05/23 release flash glucose scanning reader #1 ea 07/07/23 (FreeStyle Clementine 2 Wheeler) insulin glargine 100 unit/mL (3 15 unit (0.15 mL) subcut DAILY #15 08/13/23 mL) subcutaneous pen (Lantus mL Solostar U-100 Insulin) FreeStyle Clementine 2 Sensor (flash #6 ea 10/14/23 glucose sensor) Results & Data (ED) Vital Signs Vital Signs - 24 hr 06/29/24 16:30 06/29/24 16:36 06/29/24 16:36 Temperature 36.3 C L Temperature Source Oral Pulse Rate 87 93 H Pulse Rate [Apical] Pulse Rhythm [Apical] Pulse Strength [Apical] Respiratory Rate 20 Respiratory Effort / Characteristics Non-Labored Spontaneous Respiratory Depth Normal Respiratory Pattern Regular Blood Pressure 94/50 L Blood Pressure [Left Arm] Blood Pressure Mean 64 Blood Pressure Mean [Left Arm] Blood Pressure Position Lying Blood Pressure Position [Left Arm] Pulse Oximetry 99 98 98 Oxygen Delivery Method Room Air Room Air Room Air Sepsis Recent Fever Within 48 Hours No Sepsis New/Unexplained Change in Mental Status No Sepsis Action Taken by Nursing No Action Required 06/29/24 17:01 06/29/24 17:02 06/29/24 19:30 Temperature Temperature Source Pulse Rate 91 H Pulse Rate [Apical] 89 73 Pulse Rhythm [Apical] Regular Pulse Strength [Apical] Normal Respiratory Rate 19 16 Respiratory Effort / Characteristics Non-Labored Non-Labored Spontaneous Respiratory Depth Normal Normal Respiratory Pattern Regular Regular Blood Pressure Blood Pressure [Left Arm] 121/59 L 118/65 Blood Pressure Mean Blood Pressure Mean [Left Arm] 79 82 Blood Pressure Position Blood Pressure Position [Left Arm] Lying Pulse Oximetry 99 99 Oxygen Delivery Method Room Air Room Air Sepsis Recent Fever Within 48 Hours Sepsis New/Unexplained Change in Mental Status Sepsis Action Taken by Nursing Laboratory Data 06/29/24 16:39 06/29/24 16:39 Lab Results 06/29/24 06/29/24 06/29/24 Range/Units 16:30 16:39 16:58 WBC 0.39 L* (4.8-10.8) K/ul RBC 3.85 L (4.70-6.10) M/uL Hgb 11.9 L (14.0-18.0) g/dl Hct 34.8 L (42.0-52.0) % MCV 90.4 (80.0-100.0) fL MCH 30.9 (25.0-34.0) pg MCHC 34.2 (32.0-36.0) g/dL RDW Std Deviation 51.6 H (36.4-46.3) fL RDW Coeff of Nam 15.7 H (11.5-14.5) % Plt Count 212 (130-400) K/uL MPV 8.6 L (9.4-12.4) fL Neut # (Auto) < 0.50 L* (1.40-6.50) K/uL PT 12.1 H (9.0-12.0) Seconds INR 1.1 (0.9-1.1) Sodium 138 (136-145) mmol/L Potassium 3.0 L (3.5-5.1) mmol/L Chloride 106 (98-107) mmol/L Carbon Dioxide 25 (21-32) mmol/L Anion Gap 7 (3-11) BUN 26 H (6-23) mg/dl Creatinine 0.85 (0.6-1.4) mg/dl Est Cr Clr Drug Dosing 56.8 ml/min Est GFR ( Amer) 90.2 ml/min Est GFR (Non-Af Amer) 77.8 ml/min BUN/Creatinine Ratio 30.6 H (10-20) Glucose 183 H (70-99(Fasting)) mg/dl Lactate 1.6 (0.4-2.0) mmol/L Calcium 8.0 L (8.6-10.3) mg/dl Magnesium 1.8 (1.7-2.4) mg/dl Total Bilirubin 0.9 (0.2-1.0) mg/dl AST 16 (13-39) U/L ALT 13 (7-52) U/L Alkaline Phosphatase 84 (34-104) U/L Troponin I High Sens 11.6 (0-20) pg/ml B-Natriuretic Peptide 53 (0-100) pg/ml Total Protein 5.3 L (6.0-8.3) gm/dl Albumin 3.2 L (3.4-5.0) gm/dl Globulin 2.1 L (2.5-4.0) gm/dl Albumin/Globulin Ratio 1.5 (0.9-2) Procalcitonin < 0.02 (0-0.5) ng/ml TSH 3.663 (0.300-4.500) uIu/ml Adenovirus (PCR) Not Detected (NotDetected) B. pertussis DNA (PCR) Not Detected (NotDetected) B.parapertussis DNA PCR Not Detected (NotDetected) C. pneumoniae DNA (PCR) Not Detected (NotDetected) Coronavirus OC43 (PCR) Not Detected (NotDetected) Coronavirus HKU1 (PCR) Not Detected (NotDetected) Coronavirus 229E (PCR) Not Detected (NotDetected) SARS-CoV-2 (PCR) Not Detected (NotDetected) Coronavirus NL63 (PCR) Not Detected (NotDetected) Human Metapneumovir PCR Not Detected (NotDetected) Influenza Type A (PCR) Not Detected (NotDetected) Influenza Type B (PCR) Not Detected (NotDetected) M. pneumoniae (PCR) Not Detected (NotDetected) Parainfluenza 1 (PCR) Not Detected (NotDetected) Parainfluenza 2 (PCR) Not Detected (NotDetected) Parainfluenza 3 (PCR) Not Detected (NotDetected) Parainfluenza 4 (PCR) Not Detected (NotDetected) RSV (PCR) Not Detected (NotDetected) Entero/Rhino (PCR) Not Detected (NotDetected) Administered Medications Discontinued Medications Sodium Chloride (Nss) 1,000 mls @ 999 mls/hr IV .Q1H1M ONE Stop: 06/29/24 17:53 Last Infusion: 06/29/24 18:09 Dose: Infused Documented By: Admin: 06/29/24 16:56 Dose: 999 mls/hr Documented By: KAYLA Imaging Data Radiologist's Impression: Chest X-Ray 06/29/24 16:28 XR chest 1V portable HISTORY: 88 years-old Male weakness COMPARISON: 07/03/2023 TECHNIQUE: AP view of the chest FINDINGS: Mild chronic interstitial coarsening. Heart is mildly enlarged. Pulmonary vascular congestion. No pneumothorax or large pleural effusion. Atherosclerosis of the aorta. Bones appear grossly intact. IMPRESSION: Cardiomegaly with pulmonary vascular congestion. ACT 112: Negative or not required by law. The above report was generated using voice recognition software. It may contain grammatical, syntax or spelling errors. Electronically signed by: Pardeep Ovalle M.D. 06/29/2024 5:10 PM Discharge Plan Visit Data Chief Complaint: Weakness Stated Complaint: WEAKNESS, AFIB ED Provider: Saray Gimenez Discharge Problem: Generalized weakness, Neutropenia, Acute hypokalemia Forms Stand Alone Forms: [facility] Prescriptions Prescriptions: No Action (DME) needle (disp) 32 gauge 32 gauge x 5/16" needle See Rx Instructions .Route Qty: 400 3RF Rx Instructions: use 4 per day (DME) FreeStyle Clementine 2 Wheeler Misc See Rx Instructions .Route Qty: 1 0RF Rx Instructions: As directed insulin glargine [Lantus Solostar U-100 Insulin] 100 unit/mL (3 mL) insulin pen 15 unit subcut DAILY Qty: 15 3RF (DME) FreeStyle Clementine 2 Sensor Kit See Rx Instructions .Route Qty: 6 3RF Rx Instructions: Change sensor every 14 days insulin regular human 100 unit/mL (3 mL) insulin pen 10 unit subcut BID valacyclovir 1 gram tablet 1,000 mg PO BID Qty: 60 0RF atenolol 25 mg tablet 25 mg PO QAM Qty: 30 0RF azelastine 137 mcg (0.1 %) aerosol,spray 2 spray intranasal BID PRN (Reason: Congestion) Qty: 30 0RF diphenoxylate-atropine [Lomotil] 2.5-0.025 mg Tablet 1 tab PO BID PRN (Reason: Diarrhea) terazosin 2 mg capsule 2 mg PO HS finasteride [Proscar] 5 mg tablet 5 mg PO QAM PRN (Reason: NEEDED PER PT/GMG) aspirin 81 mg Tablet,Delayed Release (Dr/Ec) 81 mg PO QAM Qty: 30 1RF Referrals Referrals: Tarun Herrera MD [Primary Care Provider] -
[2024-06-29] MEDS: SODIUM CHLORIDE 0.9% 1,000 ML IV ONE (16:56)
--- NOTE | 2024-06-29 17:12 | XRay Report ---
XR chest 1V portable HISTORY: 88 years-old Male weakness COMPARISON: 07/03/2023 TECHNIQUE: AP view of the chest FINDINGS: Mild chronic interstitial coarsening. Heart is mildly enlarged. Pulmonary vascular congestion. No pne umothorax or large pleural effusion. Atherosclerosis of the aorta. Bones appear grossly intact. IMPRESSION: Cardiomegaly with pulmonary vascular congestion. ACT 112: Negative or not required by law. The above report was generated using voice recognition software. It may contain grammatical, syntax o r spelling errors. Electronically signed by: Pardeep Ovalle M.D. 06/29/2024 5:10 PM
[2024-06-29 17:15] LABS: Hematocrit (blood only) 34.8 % (42.0-52.0); Hemoglobin 11.9 g/dl (14.0-18.0); Mean Corpuscular Hemoglobin 30.9 pg (25.0-34.0); Mean Corpuscular Hgb Conc 34.2 g/dL (32.0-36.0); Mean Corpuscular Volume 90.4 fL (80.0-100.0); Mean Platelet Volume 8.6 fL (9.4-12.4); Platelet Count 212 K/uL (130-400); RDW Coefficient of Variation 15.7 % (11.5-14.5); RDW Standard Deviation 51.6 fL (36.4-46.3); Red Blood Count 3.85 M/uL (4.70-6.10); White Blood Count 0.39 K/ul (4.8-10.8)
[2024-06-29 17:16] LABS: Neutrophils # (auto) < 0.50 K/uL (1.40-6.50)
[2024-06-29 17:29] LABS: Albumin Globulin Ratio 1.5 (0.9-2); Albumin Level 3.2 gm/dl (3.4-5.0); BUN Creatinine Ratio 30.6 (10-20); Bilirubin,Total 0.9 mg/dl (0.2-1.0); Creatinine Clr Calc Pharmacy 56.8 ml/min; Est GFR (African American) 90.2 ml/min; Est GFR (Non-African American) 77.8 ml/min; Globulin 2.1 gm/dl (2.5-4.0); Magnesium 1.8 mg/dl (1.7-2.4); Total Protein 5.3 gm/dl (6.0-8.3)
[2024-06-29 17:30] LABS: INR 1.1 (0.9-1.1); Prothrombin Time 12.1 Seconds (9.0-12.0)
[2024-06-29 17:34] LABS: Adenovirus PCR Not Detected (NotDetected); Bordetella parapertussis PCR Not Detected (NotDetected); Bordetella pertussis PCR Not Detected (NotDetected); Chlamydia pneumoniae PCR Not Detected (NotDetected); Coronavirus 229E PCR Not Detected (NotDetected); Coronavirus CoV-2 (COVID19)PCR Not Detected (NotDetected); Coronavirus HKU1 PCR Not Detected (NotDetected); Coronavirus NL63 PCR Not Detected (NotDetected); Coronavirus OC43PCR Not Detected (NotDetected); Human Metapneumovirus PCR Not Detected (NotDetected); Influenza A PCR Not Detected (NotDetected); Influenza B PCR Not Detected (NotDetected); Mycoplasma pneumoniae PCR Not Detected (NotDetected); Parainfluenza Virus 1 PCR Not Detected (NotDetected); Parainfluenza Virus 2 PCR Not Detected (NotDetected); Parainfluenza Virus 3 PCR Not Detected (NotDetected); Parainfluenza Virus 4 PCR Not Detected (NotDetected); Respiratory Syncytial VirusPCR Not Detected (NotDetected); Rhinovirus/Enterovirus PCR Not Detected (NotDetected)
[2024-06-29 17:36] LABS: Troponin I High Sensitivity 11.6 pg/ml (0-20)
[2024-06-29 17:45] LABS: Thyroid Stimulating Hormone 3.663 uIu/ml (0.300-4.500)
[2024-06-29] MEDS: MAGNESIUM SULFATE / D5W 1 GM/100 ML BAG IV ONE (21:21)
[2024-06-29] MEDS: NSS + 20MEQ KCL 20 MEQ/1,000 ML BAG IV ONE (21:21)
[2024-06-29] MEDS: POTASSIUM CHLORIDE PWD 20 MEQ PACK PO STA (21:22)
[2024-06-29] MEDS ORDERED: DEXTROSE 50% 50 ML SYRINGE IV PRN (22:47)
[2024-06-29] MEDS ORDERED: ACETAMINOPHEN 325 MG TAB PO PRN (22:47)
[2024-06-29] MEDS ORDERED: GLUCOSE 40% GEL 15 GM TUBE PO PRN (22:47)
[2024-06-29] MEDS ORDERED: GLUCAGON FOR INJ 1 MG VIAL SQ PRN (22:47)
[2024-06-29] MEDS ORDERED: GLUCOSE 10 TAB/TUBE PO PRN (22:47)
[2024-06-29] MEDS: LANTUS PER UNIT CHARGE SQ STA (23:07)
[2024-06-29] MEDS: INSULIN ASPART PER UNIT CHARGE SC SCH (23:08)
--- NOTE | 2024-06-29 23:08 | CT Scan Report ---
Exam(s): CT HEAD Without Contrast EXAM: CT Head Without Intravenous Contrast CLINICAL HISTORY: Reason for exam: weakness. TECHNIQUE: Axial computed tomography images of the head/brain without intravenous contrast. CTDI is 38.49 mGy and DLP is 624.41 mGy-cm. Automated exposure control was utilized for the study. A dose lowering technique was utilized adhering to the principles of ALARA. COMPARISON: CT head: 07/04/2023 FINDINGS: Brain: There is moderately advanced chronic cerebral small vessel disease and mild generalized atrophy. There are small chronic appearing bilateral basal ganglia lacunar infarcts. No hemorrhage. Ventricles: Unremarkable. No ventriculomegaly. Bones/joints: Unremarkable. No acute fracture. Soft tissues: Unremarkable. Sinuses: Unremarkable as visualized. No acute sinusitis. Mastoid air cells: Unremarkable as visualized. No mastoid effusion. IMPRESSION: No acute intercranial abnormality. Electronically signed by: Ishaan Aguilera MD 06/29/24 23:07 PM
[2024-06-29 23:31] LABS: Appearance Urine Clear (Clear); Bacteria Urine Automated None Seen (None Seen); Bilirubin Urine Negative (Negative); Blood Urine Negative (Negative); Cast Urine Automated 0-2 /lpf (0-2); Color Urine Yellow; Epithelial Cell Urine Auto 0-2 /hpf (0-2); Glucose Urine UA Negative (Negative); Ketones Urine Negative (Negative); Leukocyte Esterase Urine Negative (Negative); Nitrite Urine Negative (Negative); Protein Urine Trace (Negative); RBC Urine Automated 0-2 /hpf (0-2); Specific Gravity Urine 1.016 (1.000-1.030); Urobilinogen Urine Negative (Negative); WBC Urine Automated 0-5 /hpf (0-5); pH Urine 5.5 (4.5-7.5)
--- NOTE | 2024-06-30 00:41 | History & Physical Report ---
Date of Service June 29, 2024 (Late entry) Assessment & Plan (1) Abnormal motor activity: Plan: Transient leg weakness possibly from viral illness, electrolyte abnormalities, and hypotension/hypovolemia Improved symptomatology after initial intervention at the ER. Rule out UTI PAF, patient NSR hx moderate aortic regurgitation PVD/CVA as per records hyperlipidemia, on statin Rx DM 2 insulin requiring, suboptimal control as of recent hemoglobin A1c of 7.30 December 2023 history of DVT as per records chronic anemia, hemoglobin at baseline Worsening leukopenia, bone marrow biopsy from last year showed normocellular marrow with trilineage hematopoiesis and granulocytic hypoplasia hx BPH history colovesical fistula status post surgery past tobacco abuse. OBS Medical telemetry IVF, hold terazosin for now TTE Re: Hypotension history valvular heart disease Replace electrolytes Check UA Outpatient Hematology follow-up for leukopenia (Patient known to Dr. Lawton.) Basal bolus insulin, ISS BG goal 1 10-1 40, carb count coverage, update hemoglobin A1c PT OT eval DVT prophylaxis. Heparin subcu Full code Patient requests for to be given periodic updates regarding care. Yin Daugherty, contact #[phone]. Text document was generated using [employer] voice recognition software. It may contain grammatical or spelling errors. Kindly contact undersigned for clarification of any documentation item in question. Admission and Anticipated Discharge Date Admission Date: June 29, 2024 History of Present Illness Chief Complaint: Bilateral leg weakness Primary Care Provider: Tarun Herrera MD History obtained from patient and records. Medical history significant for PAF, moderate aortic regurgitation, PVD, CVA, hypertension, hyperlipidemia, DM 2 insulin requiring, history of DVT as per records, chronic anemia (baseline hemoglobin 11-12), chronic neutropenia, BPH, history colovesical fistula status post surgery, PMR, skin cancer as per records, past tobacco abuse. Last confinement last year for transient weakness attributed to UTI. Small vessel ischemic disease on stroke workup. Neurology recommended aspirin and discharge. Patient with worsening bilateral leg weakness over the last week. Episode of confusion with urinary incontinence. Patient denies headache, chest pain, SOB. Appetite fair. SBP 70s upon EMS arrival at patient's home. Patient brought to the ER for evaluation. Legs feeling stronger after initial intervention given at the ER. 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 Allergies Allergy/AdvReac Type Severity Reaction Status Date / Time Penicillins Allergy Intermediate HIVES Verified 06/12/24 15:10 Sulfa (Sulfonamide Allergy Intermediate RASH Verified 06/12/24 15:10 Antibiotics) tree and shrub pollen Allergy Intermediate CONGESTION Verified 06/12/24 15:10 Home Medications Medication Instructions Recorded Confirmed Type atenolol 25 mg tablet 25 mg PO QAM #30 tabs 01/27/23 06/29/24 Rx azelastine 137 mcg (0.1 %) nasal 2 spray intranasal BID PRN 01/27/23 06/29/24 Rx spray Congestion #30 mL valacyclovir 1 gram tablet 1,000 mg PO BID #60 tabs 01/27/23 06/29/24 Rx needle (disp) 32 gauge 32 gauge x #400 ea 03/01/23 06/29/24 Rx 5/16" diphenoxylate-atropine 2.5 1 tab PO BID PRN Diarrhea 07/04/23 06/29/24 History mg-0.025 mg tablet (Lomotil) finasteride 5 mg tablet (Proscar) 5 mg PO QAM PRN NEEDED PER 07/04/23 06/29/24 History PT/GMG terazosin 2 mg capsule 2 mg PO HS 07/04/23 06/29/24 History aspirin 81 mg tablet,delayed 81 mg PO QAM #30 tabs 07/05/23 06/29/24 Rx release flash glucose scanning reader #1 ea 07/07/23 06/29/24 Rx (FreeStyle Clementine 2 Moro) insulin glargine 100 unit/mL (3 15 unit (0.15 mL) subcut DAILY #15 08/13/23 06/29/24 Rx mL) subcutaneous pen (Lantus mL Solostar U-100 Insulin) FreeStyle Clementine 2 Sensor (flash #6 ea 10/14/23 06/29/24 Rx glucose sensor) insulin regular human 100 unit/mL 10 unit subcut BID 06/12/24 06/29/24 History (3 mL) subcutaneous pen atorvastatin 40 mg tablet mg 06/29/24 History diphenoxylate-atropine 2.5 1 tab PO BID PRN Severe Diarrhea 06/29/24 06/29/24 History mg-0.025 mg tablet hydroxyzine HCl 25 mg tablet 25 mg PO Q6 PRN Itching 06/29/24 06/29/24 History ketoconazole 2 % shampoo topical 06/29/24 History Past Med/Surg History Problem List (Updated 06/29/24 @ 20:50 by Saray Gimenez MD) Acute hypokalemia (Acute) Neutropenia (Acute) Generalized weakness (Acute) Acute UTI (Acute) TIA (transient ischemic attack) (Acute) Spell of abnormal behavior Abnormal motor activity Diabetes mellitus type 2 in nonobese Sepsis Acute on chronic urinary retention PAF (paroxysmal atrial fibrillation) Severe neutropenia (Acute) Acute hyperglycemia (Acute) Acute hypotension (Acute) BPH (benign prostatic hyperplasia) Neutropenia Hypotension Abnormal ECG Delirium Acute hyperglycemia (Acute) Ketoacidosis (Acute) Acute dehydration (Acute) Hyperkalemia (Acute) Seasonal allergies Sensorineural hearing loss of both ears DM (diabetes mellitus) (Chronic) HTN (hypertension) (Chronic) 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 Incomplete emptying of bladder (Chronic 11/03/14) Medical History Actinic keratosis BPH (benign prostatic hyperplasia) 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) Diverticulitis (07/23/14) Diverticulitis DM (diabetes mellitus) DVT (deep venous thrombosis) H/O prostatitis HTN (hypertension) Incomplete emptying of bladder (11/03/14) Left leg DVT PAF (paroxysmal atrial fibrillation) PMR (polymyalgia rheumatica) Postoperative urethral stricture Sensorineural hearing loss of both ears Urinary retention UTI (lower urinary tract infection) UTI (lower urinary tract infection) Surgical History History of back surgery History of knee surgery History of surgery S/P TURP Family History Other Family history non-contributory Heart disease No family history of adverse response to anesthesia No family history of bleeding disorder Denies family history of Ovarian cancer Prostate cancer Myocardial infarction Breast cancer Colorectal cancer Social History Smoking Status: Never smoker Second Hand Exposure: No; Do You Dip or Chew Tobacco: No; Hx Alcohol Use: No Hx Substance Use: No Preferred Language: Armenian Communication Ability: Effective Visual Impairment: No Limitations Hearing Ability: Hard of Hearing Supervisor Composing Room Required: No Beliefs That Will Affect Care: None marital status: Current Living Situation: Spouse Current Living Situation Comment: Single family home current occupational status: retired How many Children do You have: 3 Feels Safe at Home: Yes Safety Concerns: Feels Safe At This Time Childhood Exposure to Second-Hand Smoke: No Diet: regular Dental Care, Regularly: Yes Physical Activity Frequency: 3-4 Times per Week Seatbelt Use: always Sunscreen Use: No Assistive Devices: Cane, Denture - Upper and Glasses Review of Systems Review of Systems: As per HPI, all other systems reviewed and negative Physical Exam Physical Exam: GENERAL: Slightly uncomfortable, slightly hard of hearing, no respiratory distress SKIN: Pallor, warm HEENT: Bespectacled, pale palpebral conjunctivae, no ptosis, dry buccal mucosa NECK : Supple, no tenderness CHEST : CTA, no tenderness HEART : RRR, no obvious murmurs ABDOMEN: Some distention, nontender EXTREMITIES : No LE swelling/tenderness, no other conspicuous deformities noted NEUROLOGIC : Coherent, no facial asymmetry, slightly hard of hearing, MMTS BUE/BLE 4/5, gait and stance not assessed Results & Data Results & Data Vital Signs (Past 12 Hours) Vital Signs Temp Pulse Pulse Resp BP BP Pulse Ox 06/29/24 23:00 86 18 139/77 98 06/29/24 21:30 100 H 16 132/59 L 95 06/29/24 21:09 103 H 06/29/24 19:30 73 16 118/65 99 06/29/24 17:02 89 19 121/59 L 99 06/29/24 17:01 91 H 06/29/24 16:36 98 06/29/24 16:36 93 H 98 06/29/24 16:30 36.3 C L 87 20 94/50 L 99 O2 Del Method 06/29/24 23:00 Room Air 06/29/24 21:30 Room Air 06/29/24 21:09 06/29/24 19:30 Room Air 06/29/24 17:02 Room Air 06/29/24 17:01 06/29/24 16:36 Room Air 06/29/24 16:36 Room Air 06/29/24 16:30 Room Air Laboratory Results Laboratory Results WBC 0.39 K/ul (4.8-10.8) L* 06/29/24 16:39 RBC 3.85 M/uL (4.70-6.10) L 06/29/24 16:39 Hgb 11.9 g/dl (14.0-18.0) L 06/29/24 16:39 Hct 34.8 % (42.0-52.0) L 06/29/24 16:39 MCV 90.4 fL (80.0-100.0) 06/29/24 16:39 MCH 30.9 pg (25.0-34.0) 06/29/24 16:39 MCHC 34.2 g/dL (32.0-36.0) 06/29/24 16:39 RDW Std Deviation 51.6 fL (36.4-46.3) H 06/29/24 16:39 RDW Coeff of Nam 15.7 % (11.5-14.5) H 06/29/24 16:39 Plt Count 212 K/uL (130-400) 06/29/24 16:39 MPV 8.6 fL (9.4-12.4) L 06/29/24 16:39 Neut # (Auto) < 0.50 K/uL (1.40-6.50) L* 06/29/24 16:39 PT 12.1 Seconds (9.0-12.0) H 06/29/24 16:39 INR 1.1 (0.9-1.1) 06/29/24 16:39 Sodium 138 mmol/L (136-145) 06/29/24 16:39 Potassium 3.0 mmol/L (3.5-5.1) L 06/29/24 16:39 Chloride 106 mmol/L (98-107) 06/29/24 16:39 Carbon Dioxide 25 mmol/L (21-32) 06/29/24 16:39 Anion Gap 7 (3-11) 06/29/24 16:39 BUN 26 mg/dl (6-23) H 06/29/24 16:39 Creatinine 0.85 mg/dl (0.6-1.4) 06/29/24 16:39 Est Cr Clr Drug Dosing 56.8 ml/min 06/29/24 16:39 Est GFR ( Amer) 90.2 ml/min 06/29/24 16:39 Est GFR (Non-Af Amer) 77.8 ml/min 06/29/24 16:39 BUN/Creatinine Ratio 30.6 (10-20) H 06/29/24 16:39 Glucose 183 mg/dl (70-99(Fasting)) H 06/29/24 16:39 POC Glucose 232 mg/dl (70-99) H 06/30/24 00:07 Lactate 1.6 mmol/L (0.4-2.0) 06/29/24 16:58 Calcium 8.0 mg/dl (8.6-10.3) L 06/29/24 16:39 Magnesium 1.8 mg/dl (1.7-2.4) 06/29/24 16:39 Total Bilirubin 0.9 mg/dl (0.2-1.0) 06/29/24 16:39 AST 16 U/L (13-39) 06/29/24 16:39 ALT 13 U/L (7-52) 06/29/24 16:39 Alkaline Phosphatase 84 U/L (34-104) 06/29/24 16:39 Troponin I High Sens 11.6 pg/ml (0-20) 06/29/24 16:39 B-Natriuretic Peptide 53 pg/ml (0-100) 06/29/24 16:39 Total Protein 5.3 gm/dl (6.0-8.3) L 06/29/24 16:39 Albumin 3.2 gm/dl (3.4-5.0) L 06/29/24 16:39 Globulin 2.1 gm/dl (2.5-4.0) L 06/29/24 16:39 Albumin/Globulin Ratio 1.5 (0.9-2) 06/29/24 16:39 Procalcitonin < 0.02 ng/ml (0-0.5) 06/29/24 16:30 TSH 3.663 uIu/ml (0.300-4.500) 06/29/24 16:39 Urine Color Yellow 06/29/24 22:55 Urine Appearance Clear (Clear) 06/29/24 22:55 Urine pH 5.5 (4.5-7.5) 06/29/24 22:55 Ur Specific [place] 1.016 (1.000-1.030) 06/29/24 22:55 Urine Protein Trace (Negative) H 06/29/24 22:55 Urine Glucose (UA) Negative (Negative) 06/29/24 22:55 Urine Ketones Negative (Negative) 06/29/24 22:55 Urine Blood Negative (Negative) 06/29/24 22:55 Urine Nitrite Negative (Negative) 06/29/24 22:55 Urine Bilirubin Negative (Negative) 06/29/24 22:55 Urine Urobilinogen Negative (Negative) 06/29/24 22:55 Ur Leukocyte Esterase Negative (Negative) 06/29/24 22:55 Urine WBC (Auto) 0-5 /hpf (0-5) 06/29/24 22:55 Urine RBC (Auto) 0-2 /hpf (0-2) 06/29/24 22:55 U Hyaline Cast (Auto) 0-2 /lpf (0-2) 06/29/24 22:55 U Epithel Cells (Auto) 0-2 /hpf (0-2) 06/29/24 22:55 Urine Bacteria (Auto) None Seen (None Seen) 06/29/24 22:55 Adenovirus (PCR) Not Detected (NotDetected) 06/29/24 16:39 B. pertussis DNA (PCR) Not Detected (NotDetected) 06/29/24 16:39 B.parapertussis DNA PCR Not Detected (NotDetected) 06/29/24 16:39 C. pneumoniae DNA (PCR) Not Detected (NotDetected) 06/29/24 16:39 Coronavirus OC43 (PCR) Not Detected (NotDetected) 06/29/24 16:39 Coronavirus HKU1 (PCR) Not Detected (NotDetected) 06/29/24 16:39 Coronavirus 229E (PCR) Not Detected (NotDetected) 06/29/24 16:39 SARS-CoV-2 (PCR) Not Detected (NotDetected) 06/29/24 16:39 Coronavirus NL63 (PCR) Not Detected (NotDetected) 06/29/24 16:39 Human Metapneumovir PCR Not Detected (NotDetected) 06/29/24 16:39 Influenza Type A (PCR) Not Detected (NotDetected) 06/29/24 16:39 Influenza Type B (PCR) Not Detected (NotDetected) 06/29/24 16:39 M. pneumoniae (PCR) Not Detected (NotDetected) 06/29/24 16:39 Parainfluenza 1 (PCR) Not Detected (NotDetected) 06/29/24 16:39 Parainfluenza 2 (PCR) Not Detected (NotDetected) 06/29/24 16:39 Parainfluenza 3 (PCR) Not Detected (NotDetected) 06/29/24 16:39 Parainfluenza 4 (PCR) Not Detected (NotDetected) 06/29/24 16:39 RSV (PCR) Not Detected (NotDetected) 06/29/24 16:39 Entero/Rhino (PCR) Not Detected (NotDetected) 06/29/24 16:39 Impressions Chest X-Ray 06/29/24 16:28 XR chest 1V portable HISTORY: 88 years-old Male weakness COMPARISON: 07/03/2023 TECHNIQUE: AP view of the chest FINDINGS: Mild chronic interstitial coarsening. Heart is mildly enlarged. Pulmonary vascular congestion. No pneumothorax or large pleural effusion. Atherosclerosis of the aorta. Bones appear grossly intact. IMPRESSION: Cardiomegaly with pulmonary vascular congestion. ACT 112: Negative or not required by law. The above report was generated using voice recognition software. It may contain grammatical, syntax or spelling errors. Electronically signed by: Pardeep Ovalle M.D. 06/29/2024 5:[address] 06/29/24 18:56 Exam(s): CT HEAD Without Contrast EXAM: CT Head Without Intravenous Contrast CLINICAL HISTORY: Reason for exam: weakness. TECHNIQUE: Axial computed tomography images of the head/brain without intravenous contrast. CTDI is 38.49 mGy and DLP is 624.41 mGy-cm. Automated exposure control was utilized for the study. A dose lowering technique was utilized adhering to the principles of ALARA. COMPARISON: CT head: 07/04/2023 FINDINGS: Brain: There is moderately advanced chronic cerebral small vessel disease and mild generalized atrophy. There are small chronic appearing bilateral basal ganglia lacunar infarcts. No hemorrhage. Ventricles: Unremarkable. No ventriculomegaly. Bones/joints: Unremarkable. No acute fracture. Soft tissues: Unremarkable. Sinuses: Unremarkable as visualized. No acute sinusitis. Mastoid air cells: Unremarkable as visualized. No mastoid effusion. IMPRESSION: No acute intercranial abnormality. Electronically signed by: Ishaan Aguilera MD 06/29/24 23:07 PM Diagnostic Findings EKG as per my interpretation : Rate 85, NSR, normal axis, RBBB, 1 AVB, T wave abnormalities inferior leads Code Status & VTE Plan VTE Prophylaxis Plan VTE Prophylaxis will be ordered: Yes
[2024-06-30] MEDS: CARBOHYDRATES FOR HYPOGLYCEMIA PO PRN (02:57)
[2024-06-30] MEDS: METOPROLOL TARTRATE 1 MG/ML VIAL IV STA (06:16)
[2024-06-30] MEDS: POTASSIUM CHLORIDE PWD 20 MEQ PACK PO STA (06:17)
[2024-06-30] MEDS: ATENOLOL 50 MG TABLET PO ONE (08:31)
[2024-06-30] MEDS: ENOXAPARIN INJ 40 MG/0.4 ML SYR SQ SCH (08:34)
[2024-06-30] MEDS: ATENOLOL 25 MG TABLET PO STA ×2 (08:34→09:00)
[2024-06-30] MEDS: ASPIRIN 81 MG ECTAB PO SCH (08:34)
--- NOTE | 2024-06-30 08:37 | Electrocardiogram Report ---
Test Reason : Blood Pressure : */* mmHG Vent. Rate : 88 BPM Atrial Rate : 88 BPM P-R Int : 216 ms QRS Dur : 138 ms QT Int : 398 ms P-R-T Axes : 45 76 37 degrees QTcB Int : 481 ms Sinus rhythm with 1st degree A-V block Right bundle branch block Abnormal ECG When compared with ECG of 03-Jul-2023 23:04, No significant change was found Confirmed by eSveriano Wagner ([id number]) on 06/30/2024 8:36:51 AM Referred By: REFERRED SELF Confirmed By: Severiano Wagner
[2024-06-30] MEDS ORDERED: METOPROLOL TARTRATE 1 MG/ML VIAL IV PRN (08:47)
[2024-06-30] MEDS: DOCUSATE SODIUM/SENNA 50/8.6MG TAB PO SCH (08:48)
[2024-06-30] MEDS: POTASSIUM CHLORIDE CRTAB 20 MEQ TABCR PO STA (08:51)
[2024-06-30 08:54] LABS: Hematocrit (blood only) 35.8 % (42.0-52.0); Hemoglobin 12.4 g/dl (14.0-18.0); Mean Corpuscular Hemoglobin 30.8 pg (25.0-34.0); Mean Corpuscular Hgb Conc 34.6 g/dL (32.0-36.0); Mean Corpuscular Volume 88.8 fL (80.0-100.0); Mean Platelet Volume 8.4 fL (9.4-12.4); Platelet Count 263 K/uL (130-400); RDW Coefficient of Variation 15.7 % (11.5-14.5); Red Blood Count 4.03 M/uL (4.70-6.10)
[2024-06-30] MEDS ORDERED: ATENOLOL 25 MG TABLET PO SCH (09:00)
[2024-06-30] MEDS ORDERED: LANTUS PER UNIT CHARGE SC SCH ×2 (09:00)
[2024-06-30 09:03] LABS: Estimated Average Glucose 183 mg/dl
[2024-06-30 09:16] LABS: BUN Creatinine Ratio 31.9 (10-20); Calcium 7.9 mg/dl (8.6-10.3); Creatinine Clr Calc Pharmacy 66.3 ml/min; Est GFR (African American) 96.5 ml/min; Est GFR (Non-African American) 83.3 ml/min; Magnesium 1.9 mg/dl (1.7-2.4); Potassium 3.6 mmol/L (3.5-5.1)
[2024-06-30 09:38] LABS: Eosinophils # (auto) 0.02 K/uL (0.00-0.50); Eosinophils % (auto) 2.6 %; Lymphocytes # (auto) 0.63 K/uL (1.20-3.40); Lymphocytes % (auto) 82.9 %; Monocytes # (auto) 0.02 K/uL (0.11-0.59); Monocytes % (auto) 2.6 %; Neutrophils # (auto) 0.09 K/uL (1.40-6.50); Neutrophils % (auto) 11.9 %; White Blood Count 0.76 K/ul (4.8-10.8)
[2024-06-30 09:54] LABS: ALC (manual) 0.61 K/uL (1.2-3.4); ANC (manual) 0.13 K/uL (1.4-6.5); Dohle Bodies 2+; Eosinophils # (manual) 0.02 K/uL (0-0.50); Eosinophils % (manual) 2 %; Lymphocytes # (manual) 0.45 K/uL (1.2-3.4); Lymphocytes % (manual) 59 %; Monocytes # (manual) 0.01 K/uL (0.11-0.59); Monocytes % (manual) 1 %; Neutrophils # (manual) 0.13 K/uL (1.40-6.50); Neutrophils % (manual) 17 %; Reactive Lymphocytes # (manual) 0.16 K/uL; Reactive Lymphocytes % (manual) 21 %
--- NOTE | 2024-06-30 11:48 | Hospitalist Progress Note ---
<Statement entered by Jed Frias DO - 06/30/24 13:15> I have seen and examined the patient and have discussed the case with the provider above. I have reviewed the advanced practitioner's documentation, and I agree with, and take responsibility for that plan of care. 16 minutes spent in examination patient and coordination of care Patient denies any chest pain or shortness of breath. He is quite insistent on going home as soon as possible. Son is at the bedside and understands need for additional interventions and treatment here in the hospital. I explained to the patient that it is possible he may be able to go home as soon as tomorrow but we need to continue to correct his electrolytes and make sure his heart rate stays controlled. His blood pressure has improved with hydration. Plan of care as outlined below Date of Service June 30, 2024 Assessment & Plan (1) Generalized weakness: (2) Hypotension: (3) Acute hypokalemia: (4) PAF (paroxysmal atrial fibrillation): (5) BPH (benign prostatic hyperplasia): (6) DM (diabetes mellitus): (7) HTN (hypertension): Plan This is an 87-year-old male with a PMH of DM II, HTN, RBBB, first-degree AV block, PAF, hyperlipidemia, gout, BPH with obstructive symptoms and chronic idiopathic neutropenia, history of bowel resection who presents to ED with generalized weakness and hypotension. Generalized weakness -> resolved Hypotension Reporting generalized weakness, especially when standing and ambulating over the past week, along with poor PO intake Hypotensive with EMS with BP 75/41, given IV fluids and hypotension resolved [place] that weakness possibly 2/2 viral illness, electrolyte abnormalities, and hypotension/hypovolemia Head CT with no acute intracranial abnormality UA unremarkable Improved symptoms with IV fluids, electrolyte correction Fall precautions PT/ OT evaluations Hypokalemia Hypomagnesemia Replaced overnight and this AM Continue to monitor Tachyarrhythmia -> resolved H/o PAF In NSR on arrival, RN overnight reported event of tachycardia when ambulating and using the restroom that has resolved Likely 2/2 dehydration, lyte abnormalities as above HR in 90s today, now HR 68 following atenolol 25mg daily, gentle hydration H/o lone PAF episode in the past, last seen by Dr. Alejo in 2021 CXR with cardiomegaly with pulmonary vascular congestion. Repeat EKG this afternoon showing NSR with 1st degree AV block, similar to previous Continue atenolol 25mg daily PVD/CVA as per records CT head showing moderately advanced chronic cerebral small vessel disease and mild generalized atrophy, no acute changes Continue aspirin, statin DM 2 insulin requiring A1c 8.0 this morning Intermittent hypoglycemic episodes overnight, this afternoon - loosen correctional scale BSG AC HS BPH Terazosin held for hypotension - resume as able Chronic idiopathic neutropenia Bone marrow biopsy from last year showed normocellular marrow with trilineage hematopoiesis and granulocytic hypoplasia Outpatient Hematology follow-up for leukopenia (Patient known to Dr. Lawton.) Chronic diarrhea History colovesical fistula status post surgery Monitor lytes DVT Ppx: SQ heparin Code status: FULL PCP: Javier Dispo: obs med tele Patient requests for to be given periodic updates regarding care. Ms. Yin Daugherty, contact #[phone]. Care coordinated with Dr. Frias. I spent a total of 60 minutes coordinating, documenting, and providing care for this patient excluding time spent in the performance of separately billed services. Admission and Anticipated Discharge Date Admission Date: June 29, 2024 Subjective Patient seen and examined in 254 bed 1. Came in for generalized weakness, specifically in legs over the past few days. Patient is a poor historian. States he has had decreased appetite and therefore reduced p.o. intake. Remote history of proximal atrial fibrillation. Feeling better this morning. No F/C, lightheadedness, CP, SOB, N/V, abd pain, dysuria, diarrhea or constipation. No focal weakness, difficulty speaking or swallowing. Review of Systems Review of Systems: At least ten systems reviewed and negative except as noted in the HPI. Physical Exam Physical Exam: Gen: WD/WN, NAD, elderly gentleman sitting at egde of bed, A&Ox3 HEENT: Normocephalic, atraumatic, conjunctivae moist, sclerae anicteric, mucous membranes moist Lung: Clear to Auscultation bilaterally, no wheezes/rales/rhonchi Heart: tachycardic rate, irregular rhythm Abdomen: Soft, NT, ND +BS x 4 Extremities: no edema, BLE 5/5 strength against resistance Skin: Warm, no rash Results & Data Results & Data Vital Signs (Past 12 Hours) Vital Signs Temp Pulse Pulse Resp BP Pulse Ox O2 Del Method 06/30/24 08:01 36.4 C L 95 H 18 154/72 H 98 Room Air 06/30/24 07:30 94 H 06/30/24 05:32 36.4 C L 140 H 18 146/82 H 98 Room Air 06/30/24 02:52 36.5 C 91 H 20 137/62 96 Room Air 06/30/24 00:49 36.8 C 92 H 18 160/77 H 100 Room Air 06/30/24 00:06 84 06/29/24 23:57 36.8 C 92 H 18 160/77 H 100 Room Air Laboratory Results Short CBC 06/29/24 06/30/24 Range/Units 16:39 08:31 WBC 0.39 L* 0.76 L* (4.8-10.8) K/ul Hgb 11.9 L 12.4 L (14.0-18.0) g/dl Hct 34.8 L 35.8 L (42.0-52.0) % Plt Count 212 263 (130-400) K/uL BMP 06/29/24 06/30/24 16:39 08:31 Sodium 138 140 Potassium 3.0 L 3.6 Chloride 106 108 H Carbon Dioxide 25 24 BUN 26 H 23 Creatinine 0.85 0.72 Glucose 183 H 149 H Calcium 8.0 L 7.9 L Liver Function 06/29/24 Range/Units 16:39 Total Bilirubin 0.9 (0.2-1.0) mg/dl AST 16 (13-39) U/L ALT 13 (7-52) U/L Alkaline Phosphatase 84 (34-104) U/L Albumin 3.2 L (3.4-5.0) gm/dl Urine 06/29/24 Range/Units 22:55 Urine Color Yellow Urine Appearance Clear (Clear) Urine pH 5.5 (4.5-7.5) Ur Specific [place] 1.016 (1.000-1.030) Urine Protein Trace H (Negative) Urine Glucose (UA) Negative (Negative) Diagnostic Findings Chest X-Ray 06/29/24 16:28 XR chest 1V portable HISTORY: 88 years-old Male weakness COMPARISON: 07/03/2023 TECHNIQUE: AP view of the chest FINDINGS: Mild chronic interstitial coarsening. Heart is mildly enlarged. Pulmonary vas cular congestion. No pneumothorax or large pleural effusion. Atherosclerosis of the aorta. Bones appear grossly intact. IMPRESSION: Cardiomegaly with pulmonary vascular congestion. ACT 112: Negative or not required by law. The above report was generated using voice recognition software. It may contain grammatical, syntax or spelling errors. Electronically signed by: Pardeep Ovalle M.D. 06/29/2024 5:[address] 06/29/24 18:56 Exam(s): CT HEAD Without Contrast EXAM: CT Head Without Intravenous Contrast CLINICAL HISTORY: Reason for exam: weakness. TECHNIQUE: Axial computed tomography images of the head/brain without intravenous contrast. CTDI is 38.49 mGy and DLP is 624.41 mGy-cm. Automated exposure control was utilized for the study. A dose lowering technique was utilized adhering to the principles of ALARA. COMPARISON: CT head: 07/04/2023 FINDINGS: Brain: There is moderately advanced chronic cerebral small vessel disease and mild generalized atrophy. There are small chronic appearing bilateral basal ganglia lacunar infarcts. No hemorrhage. Ventricles: Unremarkable. No ventriculomegaly. Bones/joints: Unremarkable. No acute fracture. Soft tissues: Unremarkable. Sinuses: Unremarkable as visualized. No acute sinusitis. Mastoid air cells: Unremarkable as visualized. No mastoid effusion. IMPRESSION: No acute intercranial abnormality. Electronically signed by: Ishaan Aguilera MD 06/29/24 23:07 PM
[2024-06-30] MEDS ORDERED: PHARMACY GLYCEMIC MGMT CONSULT PRN (13:09)
--- NOTE | 2024-06-30 14:56 | Pharmacy Report ---
Pharmacy Glycemic Short Note 2 - Date of Service June 30, 2024 - Glycemic Short BSG Results (Last 24 hours): 06/29/24 06/29/24 06/30/24 16:39 23:01 00:07 Glucose 183 H POC Glucose 245 H 232 H 06/30/24 06/30/24 06/30/24 02:47 03:13 05:17 Glucose POC Glucose 60 L* 67 L* 152 H 06/30/24 06/30/24 06/30/24 08:00 08:31 12:28 Glucose 149 H POC Glucose 167 H 66 L* 06/30/24 06/30/24 12:29 12:58 Glucose POC Glucose 63 L* 76 OUTPATIENT ANTIDIABETIC REGIMEN: * Lantus 10 units SC BID * HbA1c = 8% on 06/30/24 ASSESSMENT: * 88 y/o M admitted for low blood pressure and bilateral leg weakness. He has history of diabetes and chronic idiopathic neutropenia. * On admission yesterday blood sugar was elevated at 245 mg/dl. He received 5 units of basal insulin and 5 units of Novolog last night. This led to low BSG of 60 mg/dl overnight. * Pharmacy consulted for glycemic management today afternoon. * Novolog parameters loosened. Goal range had already been loosened this afternoon by provider. * Basal insulin continued the same at HS. Will add a BSG check overnight. PLAN FOR INPATIENT GLYCEMIC CONTROL: * Basal insulin * Lantus 5 units SQ HS * Bolus insulin * NovoLog per scale ACHS or Q6hrs while NPO * Goal Range: Low 120 mg/dL - High 160 mg/dL * Correction Factor: 35 mg/dL/unit * Nutritional / Prandial insulin per carb ratio of 1 unit per 20 grams CHO consumed
--- NOTE | 2024-06-30 15:36 | Electrocardiogram Report ---
Test Reason : Blood Pressure : */* mmHG Vent. Rate : 64 BPM Atrial Rate : 64 BPM P-R Int : 238 ms QRS Dur : 138 ms QT Int : 456 ms P-R-T Axes : 11 72 47 degrees QTcB Int : 470 ms Sinus rhythm with 1st degree A-V block Right bundle branch block Abnormal ECG When compared with ECG of 29-Jun-2024 16:32, No significant change was found Confirmed by Severiano Wagner ([id number]) on 06/30/2024 3:36:34 PM Referred By: REFERRED SELF Confirmed By: Severiano Wagner
[2024-06-30] MEDS: LANTUS PER UNIT CHARGE SC SCH (20:11)
[2024-07-01] MEDS: TERAZOSIN HCL 1 MG CAP PO SCH (00:45)
[2024-07-01] MEDS: INSULIN ASPART PER UNIT CHARGE SC SCH (03:52)
[2024-07-01 06:12] LABS: Hematocrit (blood only) 31.5 % (42.0-52.0); Mean Corpuscular Hgb Conc 34.9 g/dL (32.0-36.0); Mean Corpuscular Volume 88.7 fL (80.0-100.0); Mean Platelet Volume 8.7 fL (9.4-12.4); Platelet Count 233 K/uL (130-400); RDW Coefficient of Variation 15.7 % (11.5-14.5); RDW Standard Deviation 51.2 fL (36.4-46.3); Red Blood Count 3.55 M/uL (4.70-6.10); White Blood Count 0.82 K/ul (4.8-10.8)
[2024-07-01 06:28] LABS: BUN Creatinine Ratio 29.4 (10-20); Calcium 7.7 mg/dl (8.6-10.3); Creatinine Clr Calc Pharmacy 69.5 ml/min; Est GFR (African American) 98.8 ml/min; Est GFR (Non-African American) 85.3 ml/min; Magnesium 1.7 mg/dl (1.7-2.4); Potassium 3.9 mmol/L (3.5-5.1)
[2024-07-01] MEDS: ATENOLOL 25 MG TABLET PO SCH (09:17)
[2024-07-01] MEDS ORDERED: hydrOXYzine HCl 25 MG TAB PO PRN (14:37)
--- NOTE | 2024-07-01 15:38 | Hospitalist Progress Note ---
Date of Service July 01, 2024 Assessment & Plan (1) Generalized weakness: Plan: This is an 87-year-old male with a PMH of DM II, HTN, RBBB, first-degree AV block, PAF, hyperlipidemia, gout, BPH with obstructive symptoms and chronic idiopathic neutropenia, history of bowel resection who presents to ED with generalized weakness and hypotension. Generalized weakness -> resolved Hypotension Reporting generalized weakness, especially when standing and ambulating over the past week, along with poor PO intake Hypotensive with EMS with BP 75/41, given IV fluids and hypotension resolved [place] that weakness possibly 2/2 viral illness, electrolyte abnormalities, and hypotension/hypovolemia Head CT with no acute intracranial abnormality UA unremarkable Improved symptoms with IV fluids, electrolyte correction Fall precautions Blood pressure is maintaining at lower end of 116/53 Denies any more weakness does not have any focal neurodeficit Will get PT OT evaluation prior to discharge likely tomorrow Chronic idiopathic neutropenia Bone marrow biopsy from last year showed normocellular marrow with trilineage hematopoiesis and granulocytic hypoplasia Outpatient Hematology follow-up for leukopenia (Patient known to Dr. Lawton.) Neutrophil count has been improving (2) Hypotension: Plan: Hypertension was likely secondary to dehydration Blood pressure noted to be as low as 75/51 and improved with intravenous fluid BP is maintained in the hospital (3) Acute hypokalemia: Plan: Hypokalemia hypomagnesemia seen hypokalemia Hypomagnesemia Noted to have low potassium at 3.0 again secondary to poor intake and dehydration Low magnesium and both were replaced Resolved with potassium of 3.9 as of 07/01/2024 (4) PAF (paroxysmal atrial fibrillation): Plan: Tachyarrhythmia -> resolved H/o PAF In NSR on arrival, RN overnight reported event of tachycardia when ambulating and using the restroom that has resolved Likely 2/2 dehydration, lyte abnormalities as above HR in 90s today, now HR 68 following atenolol 25mg daily, gentle hydration H/o lone PAF episode in the past, last seen by Dr. Alejo in 2021 CXR with cardiomegaly with pulmonary vascular congestion. Repeat EKG this afternoon showing NSR with 1st degree AV block, similar to previous Continue atenolol 25mg daily Remains in sinus rhythm rate is controlled (5) BPH (benign prostatic hyperplasia): (6) DM (diabetes mellitus): Plan: DM 2 insulin requiring A1c 8.0 this morning Intermittent hypoglycemic episodes overnight, this afternoon - loosen correctional scale BSG AC HS (7) HTN (hypertension): Plan Other significant medical conditions are as below: CT head showing moderately advanced chronic cerebral small vessel disease and mild generalized atrophy, no acute changes Continue aspirin, statin BPH Terazosin held for hypotension - resume as able Chronic diarrhea History colovesical fistula status post surgery Monitor lytes DVT Ppx: SQ heparin Code status: FULL PCP: Javier Dispo: obs med tele Admission and Anticipated Discharge Date Admission Date: June 29, 2024 Subjective 07/01/2024 The patient was seen and examined in medical telemetry unit in presence of the He was admitted with acute weakness involving the lower extremities mainly He has had confusion as well prior to admission No more confusion and does not feel to have any weakness Awaiting PT and OT evaluation prior to discharge Review of Systems Review of Systems: All systems reviewed and are unremarkable except as noted below Physical Exam Physical Exam: Lying in bed without any acute distress Constitutional: average body habitus; not ill appearing Eyes: PERRL, conjunctivae normal, anicteric sclerae ENMT: external ear and nose normal, oropharynx normal Neck: trachea midline, no thyromegaly Respiratory: no respiratory distress Auscultation: lungs clear to auscultation bilaterally Cardiovascular: Rate/Rhythm: regular rate and regular rhythm; not tachycardic Heart Sounds: normal S1 and normal S2; no murmur Extremities: no edema Gastrointestinal (Abdomen): Inspection/Auscultation: normal bowel sounds; abdomen not distended Percussion/Palpation: abdomen soft; abdomen nontender Musculoskeletal: No acute arthritis involving any of the joint Neurologic: normal touch/pain/proprioception and moves all extremities; no focal motor deficits Lymphatic: no cervical or axillary lymphadenopathy Results & Data Results & Data Vital Signs (Past 12 Hours) Vital Signs Temp Pulse Pulse Resp BP BP Pulse Ox 07/01/24 12:06 36.4 C L 61 16 116/53 L 97 07/01/24 08:24 69 07/01/24 07:56 36.5 C 80 18 123/63 97 07/01/24 04:40 36.5 C 54 L 18 146/77 H 97 O2 Del Method 07/01/24 12:06 Room Air 07/01/24 08:24 07/01/24 07:56 Room Air 07/01/24 04:40 Room Air Laboratory Results Short CBC 07/01/24 Range/Units 05:44 WBC 0.82 L* (4.8-10.8) K/ul Hgb 11.0 L (14.0-18.0) g/dl Hct 31.5 L (42.0-52.0) % Plt Count 233 (130-400) K/uL BMP 07/01/24 05:44 Sodium 139 Potassium 3.9 Chloride 109 H Carbon Dioxide 24 BUN 20 Creatinine 0.68 Glucose 113 H Calcium 7.7 L Medications Administered Current Inpatient Medications Acetaminophen (Acetaminophen 325 Mg Tab) 650 mg PO QID PRN PRN Reason: pain/fever Stop: 07/29/24 22:46 Aspirin (Aspirin 81 Mg Ectab) [facility] Stop: 07/30/24 08:59 Last Admin: 07/01/24 09:17 Dose: 81 mg Atenolol (Atenolol 25 Mg Tablet) 25 [facility] Stop: 07/31/24 08:59 Last Admin: 07/01/24 09:17 Dose: 25 mg Dextrose (Dextrose 50% 50 Ml Syringe) 25 - 50 ml IV UD PRN; Protocol PRN Reason: Hypoglycemia Protocol Stop: 07/29/24 22:46 Enoxaparin Sodium (Enoxaparin Inj 40 Mg/0.4 Ml Syr) 40 mg [facility] Stop: 07/30/24 08:59 Last Admin: 07/01/24 10:18 Dose: Not Given Glucagon (Glucagon For Inj 1 Mg Vial) 1 mg SQ UD PRN; Protocol PRN Reason: Hypoglycemia Protocol Stop: 07/29/24 22:46 Glucose (Glucose 40% Gel 15 Gm Tube) 15 - 30 gm PO UD PRN; Protocol PRN Reason: Hypoglycemia Protocol Stop: 07/29/24 22:46 Glucose (Glucose 10 Tab/Tube) 4 - 8 tab PO UD PRN; Protocol PRN Reason: Hypoglycemia Treatment Stop: 07/29/24 22:46 Hydroxyzine HCl (Hydroxyzine Hcl 25 Mg Tab) 25 mg PO Q6 PRN PRN Reason: Itching Stop: 07/31/24 14:36 Insulin Aspart (Insulin Aspart Per Unit Charge) 0 units SC ACHS [facility] Stop: 07/29/24 22:49 Last Admin: 07/01/24 13:43 Dose: 3 units Insulin Glargine (Lantus Per Unit Charge) 5 units SC [facility] Stop: 07/30/24 20:59 Last Admin: 06/30/24 20:11 Dose: 5 units Metoprolol Tartrate (Metoprolol Tartrate 1 Mg/Ml Vial) 2.5 mg IV Q6H PRN PRN Reason: HR > 110 Stop: 07/30/24 08:46 Miscellaneous (Carbohydrates For Hypoglycemia ) 15 - 30 gm PO UD PRN PRN Reason: Hypoglycemia Protocol Stop: 07/29/24 22:46 Last Admin: 06/30/24 02:57 Dose: 30 gm Miscellaneous Information (Pharmacy Glycemic Mgmt Consult) 1 each N/A UD PRN; Protocol PRN Reason: Consult Stop: 07/30/24 13:08 Senna/Docusate Sodium (Docusate Sodium/Senna 50/8.6mg Tab) 1 tab PO [facility] Stop: 07/30/24 08:59 Last Admin: 07/01/24 09:17 Dose: 1 tab Terazosin HCl (Terazosin Hcl 1 Mg Cap) 2 mg PO [facility] Stop: 07/30/24 23:19 Last Admin: 07/01/24 00:45 Dose: 2 mg
[2024-07-02 08:19] LABS: Hematocrit (blood only) 34.6 % (42.0-52.0); Mean Corpuscular Hemoglobin 31.3 pg (25.0-34.0); Mean Corpuscular Hgb Conc 34.7 g/dL (32.0-36.0); Mean Corpuscular Volume 90.3 fL (80.0-100.0); Mean Platelet Volume 8.8 fL (9.4-12.4); Platelet Count 254 K/uL (130-400); RDW Coefficient of Variation 15.8 % (11.5-14.5); Red Blood Count 3.83 M/uL (4.70-6.10)
[2024-07-02 08:32] LABS: White Blood Count 0.73 K/ul (4.8-10.8)
[2024-07-02 09:04] LABS: BUN Creatinine Ratio 29.1 (10-20); Calcium 8.1 mg/dl (8.6-10.3); Creatinine Clr Calc Pharmacy 59.2 ml/min; Est GFR (African American) 92.9 ml/min; Est GFR (Non-African American) 80.2 ml/min; Magnesium 1.7 mg/dl (1.7-2.4); Potassium 4.2 mmol/L (3.5-5.1)
[2024-07-02 09:05] LABS: Dohle Bodies 1+
[2024-07-02 09:08] LABS: Basophils # (auto) 0.01 K/uL (0.00-0.20); Basophils % (auto) 1.4 %; Eosinophils # (auto) 0.01 K/uL (0.00-0.50); Eosinophils % (auto) 1.4 %; Lymphocytes # (auto) 0.57 K/uL (1.20-3.40); Lymphocytes % (auto) 78.1 %; Monocytes # (auto) 0.01 K/uL (0.11-0.59); Monocytes % (auto) 1.4 %; Neutrophils # (auto) 0.13 K/uL (1.40-6.50); Neutrophils % (auto) 17.7 %
--- NOTE | 2024-07-02 13:50 | Hospitalist Progress Note ---
Date of Service July 02, 2024 Assessment & Plan (1) Generalized weakness: Plan: This is an 87-year-old male with a PMH of DM II, HTN, RBBB, first-degree AV block, PAF, hyperlipidemia, gout, BPH with obstructive symptoms and chronic idiopathic neutropenia, history of bowel resection who presents to ED with generalized weakness and hypotension. Generalized weakness -> resolved Hypotension Reporting generalized weakness, especially when standing and ambulating over the past week, along with poor PO intake Hypotensive with EMS with BP 75/41, given IV fluids and hypotension resolved [place] that weakness possibly 2/2 viral illness, electrolyte abnormalities, and hypotension/hypovolemia Head CT with no acute intracranial abnormality UA unremarkable Improved symptoms with IV fluids, electrolyte correction Fall precautions Blood pressure is maintaining at lower end of 116/53 Denies any more weakness does not have any focal neurodeficit Will get PT OT evaluation prior to discharge likely tomorrow PT OT recommended home Remains medically stable to be discharged except significantly low white count and neutrophil Chronic idiopathic neutropenia Bone marrow biopsy from last year showed normocellular marrow with trilineage hematopoiesis and granulocytic hypoplasia Outpatient Hematology follow-up for leukopenia (Patient known to Dr. Lawton.) Neutrophil count has been improving White blood cell count and neutrophil count has been low today Will monitor and repeat tomorrow and discussed with the hatchery attendant for possible appointment as an outpatient for Neupogen administration (2) Hypotension: Plan: Hypertension was likely secondary to dehydration Blood pressure noted to be as low as 75/51 and improved with intravenous fluid BP is maintained in the hospital (3) Acute hypokalemia: Plan: Hypokalemia hypomagnesemia seen hypokalemia Hypomagnesemia Noted to have low potassium at 3.0 again secondary to poor intake and dehydration Low magnesium and both were replaced Resolved with potassium of 3.9 as of 07/01/2024 (4) PAF (paroxysmal atrial fibrillation): Plan: Tachyarrhythmia -> resolved H/o PAF In NSR on arrival, RN overnight reported event of tachycardia when ambulating and using the restroom that has resolved Likely 2/2 dehydration, lyte abnormalities as above HR in 90s today, now HR 68 following atenolol 25mg daily, gentle hydration H/o lone PAF episode in the past, last seen by Dr. Alejo in 2021 CXR with cardiomegaly with pulmonary vascular congestion. Repeat EKG this afternoon showing NSR with 1st degree AV block, similar to previous Continue atenolol 25mg daily Remains in sinus rhythm rate is controlled (5) BPH (benign prostatic hyperplasia): (6) DM (diabetes mellitus): Plan: DM 2 insulin requiring A1c 8.0 this morning Intermittent hypoglycemic episodes overnight, this afternoon - loosen correctional scale BSG AC HS (7) HTN (hypertension): Plan Other significant medical conditions are as below: CT head showing moderately advanced chronic cerebral small vessel disease and mild generalized atrophy, no acute changes Continue aspirin, statin BPH Terazosin held for hypotension - resume as able Chronic diarrhea History colovesical fistula status post surgery Monitor lytes DVT Ppx: SQ heparin Code status: FULL PCP: Javier Dispo: obs med tele Admission and Anticipated Discharge Date Admission Date: July 01, 2024 Subjective 07/01/2024 The patient was seen and examined in medical telemetry unit in presence of the He was admitted with acute weakness involving the lower extremities mainly He has had confusion as well prior to admission No more confusion and does not feel to have any weakness Awaiting PT and OT evaluation prior to discharge 07/02/2024 The patient was seen and examined in medical telemetry unit in presence of the son Patient wants to go home today but noted to have very low white count and neutrophil count Denies any other significant symptoms but remains pleasantly confused Review of Systems Review of Systems: All systems reviewed and are unremarkable except as noted below Physical Exam Physical Exam: Lying in bed without any acute distress Constitutional: average body habitus; not ill appearing Eyes: PERRL, conjunctivae normal, anicteric sclerae ENMT: external ear and nose normal, oropharynx normal Neck: trachea midline, no thyromegaly Respiratory: no respiratory distress Auscultation: lungs clear to auscultation bilaterally Cardiovascular: Rate/Rhythm: regular rate and regular rhythm; not tachycardic Heart Sounds: normal S1 and normal S2; no murmur Extremities: no edema Gastrointestinal (Abdomen): Inspection/Auscultation: normal bowel sounds; abdomen not distended Percussion/Palpation: abdomen soft; abdomen nontender Neurologic: normal touch/pain/proprioception and moves all extremities; no focal motor deficits Lymphatic: no cervical or axillary lymphadenopathy Results & Data Results & Data Vital Signs (Past 12 Hours) Vital Signs Temp Pulse Pulse Resp BP Pulse Ox O2 Del Method 07/02/24 11:43 36.4 C L 71 16 133/57 L 98 Room Air 07/02/24 07:09 62 07/02/24 03:59 36.6 C 73 18 154/65 H 98 Room Air Laboratory Results Short CBC 07/02/24 Range/Units 07:05 WBC 0.73 L* (4.8-10.8) K/ul Hgb 12.0 L (14.0-18.0) g/dl Hct 34.6 L (42.0-52.0) % Plt Count 254 (130-400) K/uL BMP 07/02/24 07:05 Sodium 136 Potassium 4.2 Chloride 105 Carbon Dioxide 26 BUN 23 Creatinine 0.79 Glucose 257 H Calcium 8.1 L Medications Administered Current Inpatient Medications Acetaminophen (Acetaminophen 325 Mg Tab) 650 mg PO QID PRN PRN Reason: pain/fever Stop: 07/29/24 22:46 Aspirin (Aspirin 81 Mg Ectab) [facility] Stop: 07/30/24 08:59 Last Admin: 07/02/24 10:01 Dose: 81 mg Atenolol (Atenolol 25 Mg Tablet) 25 mg PO QAM [facility] Stop: 07/31/24 08:59 Last Admin: 07/02/24 10:01 Dose: 25 mg Dextrose (Dextrose 50% 50 Ml Syringe) 25 - 50 ml IV UD PRN; Protocol PRN Reason: Hypoglycemia Protocol Stop: 07/29/24 22:46 Enoxaparin Sodium (Enoxaparin Inj 40 Mg/0.4 Ml Syr) 40 mg [facility] Stop: 07/30/24 08:59 Last Admin: 07/02/24 10:01 Dose: Not Given Glucagon (Glucagon For Inj 1 Mg Vial) 1 mg SQ UD PRN; Protocol PRN Reason: Hypoglycemia Protocol Stop: 07/29/24 22:46 Glucose (Glucose 40% Gel 15 Gm Tube) 15 - 30 gm PO UD PRN; Protocol PRN Reason: Hypoglycemia Protocol Stop: 07/29/24 22:46 Glucose (Glucose 10 Tab/Tube) 4 - 8 tab PO UD PRN; Protocol PRN Reason: Hypoglycemia Treatment Stop: 07/29/24 22:46 Hydroxyzine HCl (Hydroxyzine Hcl 25 Mg Tab) 25 mg PO Q6 PRN PRN Reason: Itching Stop: 07/31/24 14:36 Insulin Aspart (Insulin Aspart Per Unit Charge) 0 units SC ACHS [facility] Stop: 07/29/24 22:49 Last Admin: 07/02/24 13:26 Dose: 1 units Insulin Glargine (Lantus Per Unit Charge) 5 units SC HS [facility] Stop: 07/30/24 20:59 Last Admin: 07/01/24 21:04 Dose: 5 units Metoprolol Tartrate (Metoprolol Tartrate 1 Mg/Ml Vial) 2.5 mg IV Q6H PRN PRN Reason: HR > 110 Stop: 07/30/24 08:46 Miscellaneous (Carbohydrates For Hypoglycemia ) 15 - 30 gm PO UD PRN PRN Reason: Hypoglycemia Protocol Stop: 07/29/24 22:46 Last Admin: 06/30/24 02:57 Dose: 30 gm Miscellaneous Information (Pharmacy Glycemic Mgmt Consult) 1 each N/A UD PRN; Protocol PRN Reason: Consult Stop: 07/30/24 13:08 Senna/Docusate Sodium (Docusate Sodium/Senna 50/8.6mg Tab) 1 tab PO QAM [facility] Stop: 07/30/24 08:59 Last Admin: 07/02/24 13:29 Dose: Not Given Terazosin HCl (Terazosin Hcl 1 Mg Cap) 2 mg PO [facility] Stop: 07/30/24 23:19 Last Admin: 07/01/24 20:05 Dose: 2 mg
[2024-07-02] MEDS: ZINC SULFATE 220 MG CAPSULE PO SCH (17:58)
[2024-07-02] MEDS: CHOLECALCIFEROL 25 MCG (1000 UNITS) TAB PO SCH (17:58)
--- NOTE | 2024-07-02 18:52 | Oncology Consultation ---
Date of Consultation July 02, 2024 Assessment & Plan (1) Neutropenia: Discussed the option of getting another bone marrow biopsy with the patient however he refused. 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 At this point will recommend conservative management given the patient's advanced age at 88 and not consider a bone marrow biopsy. Will recommend initiation of prophylactic antibiotics such as levofloxacin 500 mg p.o. daily, acyclovir 200 mg twice daily and fluconazole 100 mg daily to lower the risk of infections theoretically. since the patient does not have MDS I do not know whether that approach will be helpful however that can be discussed with the patient. Plan Thank you for this interesting hematological consult. Total of 60 minutes were spent in counseling, coordination of care, review of prior records. Hematology will continue to follow the patient make appropriate recommendations. History of Present Illness Reason for Consultation: Neutropenia Attending Physician: Cayden Piper MD History of Present Illness the patient is a very pleasant 88-year-old gentleman with a longstanding history of neutropenia has been admitted to the hospital with transient leg weakness. Of note he has been dealing with neutropenia for the last 10 years, follows my colleagues in [facility], Dr. Lawton. he followed with my colleague Dr. Melvin last year and a bone marrow biopsy was done which did not show any evidence of MDS. Currently the patient does not have any infection. He has not had multiple admissions to the hospital with sepsis. Reports no fever or chills. Reports no nausea or vomiting. Appetite is good, he is not losing weight. Allergies Allergy/AdvReac Type Severity Reaction Status Date / Time Penicillins Allergy Intermediate HIVES Verified 06/12/24 15:10 Sulfa (Sulfonamide Allergy Intermediate RASH Verified 06/12/24 15:10 Antibiotics) tree and shrub pollen Allergy Intermediate CONGESTION Verified 06/12/24 15:10 Home Medications Medication Instructions Recorded Confirmed Type atenolol 25 mg tablet 25 mg PO QAM #30 tabs 01/27/23 06/29/24 Rx azelastine 137 mcg (0.1 %) nasal 2 spray intranasal BID PRN 01/27/23 06/29/24 Rx spray Congestion #30 mL valacyclovir 1 gram tablet 1,000 mg PO BID #60 tabs 01/27/23 06/29/24 Rx needle (disp) 32 gauge 32 gauge x #400 ea 03/01/23 06/29/24 Rx 5/16" diphenoxylate-atropine 2.5 1 tab PO BID PRN Diarrhea 07/04/23 06/29/24 History mg-0.025 mg tablet (Lomotil) finasteride 5 mg tablet (Proscar) 5 mg PO QAM PRN NEEDED PER 07/04/23 06/29/24 History PT/GMG terazosin 2 mg capsule 2 mg PO HS 07/04/23 06/29/24 History aspirin 81 mg tablet,delayed 81 mg PO QAM #30 tabs 07/05/23 06/29/24 Rx release flash glucose scanning reader #1 ea 07/07/23 06/29/24 Rx (FreeStyle [place] 2 [place]) insulin glargine 100 unit/mL (3 15 unit (0.15 mL) subcut DAILY #15 08/13/23 06/29/24 Rx mL) subcutaneous pen (Lantus mL Solostar U-100 Insulin) FreeStyle [place] 2 Sensor (flash #6 ea 10/14/23 06/29/24 Rx glucose sensor) insulin regular human 100 unit/mL 10 unit subcut BID 06/12/24 06/29/24 History (3 mL) subcutaneous pen atorvastatin 40 mg tablet mg 06/29/24 History diphenoxylate-atropine 2.5 1 tab PO BID PRN Severe Diarrhea 06/29/24 06/29/24 History mg-0.025 mg tablet hydroxyzine HCl 25 mg tablet 25 mg PO Q6 PRN Itching 06/29/24 06/29/24 History ketoconazole 2 % shampoo topical 06/29/24 History Patient History Medical History Actinic keratosis BPH (benign prostatic hyperplasia) 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) Diverticulitis (07/23/14) Diverticulitis DM (diabetes mellitus) DVT (deep venous thrombosis) H/O prostatitis HTN (hypertension) Incomplete emptying of bladder (11/03/14) Left leg DVT PAF (paroxysmal atrial fibrillation) PMR (polymyalgia rheumatica) Postoperative urethral stricture Sensorineural hearing loss of both ears Urinary retention UTI (lower urinary tract infection) UTI (lower urinary tract infection) Surgical History History of back surgery History of knee surgery History of surgery S/P TURP Family History Other Family history non-contributory Heart disease No family history of adverse response to anesthesia No family history of bleeding disorder Denies family history of Ovarian cancer Prostate cancer Myocardial infarction Breast cancer Colorectal cancer Social History Smoking Status: Never smoker Second Hand Exposure: No; Do You Dip or Chew Tobacco: No; Hx Alcohol Use: No Hx Substance Use: No Preferred Language: Hebrew Communication Ability: Effective Visual Impairment: No Limitations Hearing Ability: Hard of Hearing Maintenance Of Way Clerk Required: No Beliefs That Will Affect Care: None marital status: Current Living Situation: Spouse Current Living Situation Comment: Single family home current occupational status: retired How many Children do You have: 3 Feels Safe at Home: Yes Safety Concerns: Feels Safe At This Time Childhood Exposure to Second-Hand Smoke: No Diet: regular Dental Care, Regularly: Yes Physical Activity Frequency: 3-4 Times per Week Seatbelt Use: always Sunscreen Use: No Assistive Devices: Cane and Walker Review of Systems Review of Systems: All systems reviewed & are unremarkable except as noted in HPI & below Constitutional: as per Subjective / HPI Eyes: as per Subjective / HPI Ear, Nose, Mouth, Throat: as per Subjective / HPI Respiratory: as per Subjective / HPI Cardiovascular: as per Subjective / HPI Gastrointestinal: as per Subjective / HPI Genitourinary: + as per Subjective / HPI Musculoskeletal: as per Subjective / HPI Integumentary: as per Subjective / HPI Neurologic: as per Subjective / HPI Psychiatric: as per Subjective / HPI Endocrine: as per Subjective / HPI Hematologic / Lymphatic: as per Subjective / HPI Allergy / Immunological: as per Subjective / HPI Physical Exam Constitutional: WD/WN, vitals as above Eyes: PERRL, conjunctivae normal, anicteric sclerae ENMT: external ear and nose normal, oropharynx normal Neck: trachea midline, no thyromegaly Respiratory: normal respiratory effort, lungs clear to auscultation Cardiovascular: RRR, no murmur, no edema Gastrointestinal (Abdomen): normal bowel sounds, soft, nontender, no hep atosplenomegaly Musculoskeletal: no cyanosis or clubbing, extremities motor strength 5/5 Skin: no rashes, warm and dry Neurologic: patellar DTR's 2+ bilat, sensation intact Psychiatric: A+Ox3, euthymic affect Genitourinary: no testicular masses, no penis abnormality Lymphatic: no cervical or axillary lymphadenopathy Results & Data Vital Signs (Past 12 Hours) Vital Signs Temp Pulse Pulse Resp BP BP Pulse Ox 07/02/24 16:00 62 07/02/24 15:49 36.6 C 61 17 137/66 98 07/02/24 11:43 36.4 C L 71 16 133/57 L 98 07/02/24 07:09 62 O2 Del Method 07/02/24 16:00 07/02/24 15:49 Room Air 07/02/24 11:43 Room Air 07/02/24 07:09
[2024-07-03 03:28] VITALS: RESP 18
[2024-07-03 04:59] LABS: Hematocrit (blood only) 32.8 % (42.0-52.0); Hemoglobin 11.4 g/dl (14.0-18.0); Mean Corpuscular Hemoglobin 30.8 pg (25.0-34.0); Mean Corpuscular Hgb Conc 34.8 g/dL (32.0-36.0); Mean Corpuscular Volume 88.6 fL (80.0-100.0); Mean Platelet Volume 8.8 fL (9.4-12.4); Platelet Count 247 K/uL (130-400); RDW Coefficient of Variation 15.6 % (11.5-14.5); RDW Standard Deviation 49.9 fL (36.4-46.3); White Blood Count 0.64 K/ul (4.8-10.8)
[2024-07-03 06:52] LABS: Dohle Bodies 1+; Eosinophils # (auto) 0.01 K/uL (0.00-0.50); Eosinophils % (auto) 1.6 %; Lymphocytes # (auto) 0.55 K/uL (1.20-3.40); Lymphocytes % (auto) 85.9 %; Monocytes # (auto) 0.02 K/uL (0.11-0.59); Monocytes % (auto) 3.1 %; Neutrophils # (auto) 0.06 K/uL (1.40-6.50); Neutrophils % (auto) 9.4 %
--- NOTE | 2024-07-03 12:03 | Hospitalist Progress Note ---
Date of Service July 03, 2024 Assessment & Plan (1) Generalized weakness: Plan: This is an 87-year-old male with a PMH of DM II, HTN, RBBB, first-degree AV block, PAF, hyperlipidemia, gout, BPH with obstructive symptoms and chronic idiopathic neutropenia, history of bowel resection who presents to ED with generalized weakness and hypotension. Generalized weakness -> resolved Hypotension Reporting generalized weakness, especially when standing and ambulating over the past week, along with poor PO intake Hypotensive with EMS with BP 75/41, given IV fluids and hypotension resolved [place] that weakness possibly 2/2 viral illness, electrolyte abnormalities, and hypotension/hypovolemia Head CT with no acute intracranial abnormality UA unremarkable Improved symptoms with IV fluids, electrolyte correction Fall precautions Blood pressure is maintaining at lower end of 116/53 Denies any more weakness does not have any focal neurodeficit Will get PT OT evaluation prior to discharge likely tomorrow PT OT recommended home Remains medically stable to be discharged except significantly low white count and neutrophil Remains stable without any significant symptoms and will be discharged home this afternoon Chronic idiopathic neutropenia Bone marrow biopsy from last year showed normocellular marrow with trilineage hematopoiesis and granulocytic hypoplasia Outpatient Hematology follow-up for leukopenia (Patient known to Dr. Lawton.) Neutrophil count has been improving White blood cell count and neutrophil count has been low today Will monitor and repeat tomorrow and discussed with the mixing supervisor for possible appointment as an outpatient for Neupogen administration Appreciate mixing supervisor input and recommendation Advised to put on suppressive medications to prevent infection including levofloxacin 500 mg daily, acyclovir 200 mL twice daily and fluconazole 100 mg daily. The patient refused to have bone marrow biopsy (2) Hypotension: Plan: Hypertension was likely secondary to dehydration Blood pressure noted to be as low as 75/51 and improved with intravenous fluid BP is maintained in the hospital (3) Acute hypokalemia: Plan: Hypokalemia hypomagnesemia seen hypokalemia Hypomagnesemia Noted to have low potassium at 3.0 again secondary to poor intake and dehydration Low magnesium and both were replaced Resolved with potassium of 3.9 as of 07/01/2024 (4) PAF (paroxysmal atrial fibrillation): Plan: Tachyarrhythmia -> resolved H/o PAF In NSR on arrival, RN overnight reported event of tachycardia when ambulating and using the restroom that has resolved Likely 2/2 dehydration, lyte abnormalities as above HR in 90s today, now HR 68 following atenolol 25mg daily, gentle hydration H/o lone PAF episode in the past, last seen by Dr. Alejo in 2021 CXR with cardiomegaly with pulmonary vascular congestion. Repeat EKG this afternoon showing NSR with 1st degree AV block, similar to previous Continue atenolol 25mg daily Remains in sinus rhythm rate is controlled rate is controlled okay (5) BPH (benign prostatic hyperplasia): (6) DM (diabetes mellitus): Plan: DM 2 insulin requiring A1c 8.0 this morning Intermittent hypoglycemic episodes overnight, this afternoon - loosen correctional scale BSG AC HS (7) HTN (hypertension): Plan Other significant medical conditions are as below: CT head showing moderately advanced chronic cerebral small vessel disease and mild generalized atrophy, no acute changes Continue aspirin, statin BPH Terazosin held for hypotension - resume as able Chronic diarrhea History colovesical fistula status post surgery Monitor lytes DVT Ppx: SQ heparin Code status: FULL PCP: Javier Dispo: obs med tele Admission and Anticipated Discharge Date Admission Date: July 01, 2024 Subjective 07/01/2024 The patient was seen and examined in medical telemetry unit in presence of the He was admitted with acute weakness involving the lower extremities mainly He has had confusion as well prior to admission No more confusion and does not feel to have any weakness Awaiting PT and OT evaluation prior to discharge 07/02/2024 The patient was seen and examined in medical telemetry unit in presence of the son Patient wants to go home today but noted to have very low white count and neutrophil count Denies any other significant symptoms but remains pleasantly confused 07/03/2024 The patient was seen and examined in medical telemetry unit He remains pleasantly confused but does not have any significant symptoms Was seen by mixing supervisor yesterday and started on some suppressive medications to prevent infection He will be discharged home this afternoon Review of Systems Review of Systems: All systems reviewed and are unremarkable except as noted below Physical Exam Physical Exam: Lying in bed without any acute distress Constitutional: average body habitus; not ill appearing Eyes: PERRL, conjunctivae normal, anicteric sclerae ENMT: external ear and nose normal, oropharynx normal Neck: trachea midline, no thyromegaly Respiratory: no respiratory distress Auscultation: lungs clear to auscultation bilaterally Cardiovascular: Rate/Rhythm: regular rate and regular rhythm; not tachycardic Heart Sounds: normal S1 and normal S2; no murmur Extremities: no edema Gastrointestinal (Abdomen): Inspection/Auscultation: normal bowel sounds; abdomen not distended Percussion/Palpation: abdomen soft; abdomen nontender Neurologic: normal touch/pain/proprioception and moves all extremities; no focal motor deficits Lymphatic: no cervical or axillary lymphadenopathy Results & Data Results & Data Vital Signs (Past 12 Hours) Vital Signs Temp Pulse Pulse Resp BP BP Pulse Ox 07/03/24 07:56 70 07/03/24 07:52 36.4 C 68 18 128/63 96 07/03/24 03:27 36.3 C L 69 18 124/60 97 07/03/24 00:22 36.5 C 74 20 144/63 H 93 O2 Del Method 07/03/24 07:56 07/03/24 07:52 Room Air 07/03/24 03:27 Room Air 07/03/24 00:22 Room Air Laboratory Results Short CBC 07/03/24 Range/Units 03:48 WBC 0.64 L* (4.8-10.8) K/ul Hgb 11.4 L (14.0-18.0) g/dl Hct 32.8 L (42.0-52.0) % Plt Count 247 (130-400) K/uL Medications Administered Current Inpatient Medications Acetaminophen (Acetaminophen 325 Mg Tab) 650 mg PO QID PRN PRN Reason: pain/fever Stop: 07/29/24 22:46 Acyclovir (Acyclovir 200 Mg Cap) 200 mg PO BID [facility] Stop: 08/02/24 11:59 Aspirin (Aspirin 81 Mg Ectab) 81 mg PO QAM [facility] Stop: 07/30/24 08:59 Last Admin: 07/03/24 09:22 Dose: 81 mg Atenolol (Atenolol 25 Mg Tablet) 25 mg PO QAM [facility] Stop: 07/31/24 08:59 Last Admin: 07/03/24 09:21 Dose: 25 mg Dextrose (Dextrose 50% 50 Ml Syringe) 25 - 50 ml IV UD PRN; Protocol PRN Reason: Hypoglycemia Protocol Stop: 07/29/24 22:46 Enoxaparin Sodium (Enoxaparin Inj 40 Mg/0.4 Ml Syr) 40 mg SQ QAM [facility] Stop: 07/30/24 08:59 Last Admin: 07/03/24 09:24 Dose: 40 mg Fluconazole (Flu[facility] 100 Mg Tab) [facility] [place]: 08/02/24 11:59 Glucagon (Glucagon For Inj 1 Mg Vial) 1 mg SQ UD PRN; Protocol PRN Reason: Hypoglycemia Protocol Stop: 07/29/24 22:46 Glucose (Glucose 40% Gel 15 Gm Tube) 15 - 30 gm PO UD PRN; Protocol PRN Reason: Hypoglycemia Protocol Stop: 07/29/24 22:46 Glucose (Glucose 10 Tab/Tube) 4 - 8 tab PO UD PRN; Protocol PRN Reason: Hypoglycemia Treatment Stop: 07/29/24 22:46 Insulin Aspart (Insulin Aspart Per Unit Charge) 0 units SC [facility] Stop: 07/29/24 22:49 Last Admin: 07/03/24 09:09 Dose: Not Given Insulin Glargine (Lantus Per Unit Charge) 5 units SC [facility] Stop: 07/30/24 20:59 Last Admin: 07/02/24 20:53 Dose: 5 units Levofloxacin (Levofloxacin 500 Mg Tab) 500 mg PO DAILY@1100 [facility]; Protocol Stop: 08/03/24 10:59 Metoprolol Tartrate (Metoprolol Tartrate 1 Mg/Ml Vial) 2.5 mg IV Q6H PRN PRN Reason: HR > 110 Stop: 07/30/24 08:46 Miscellaneous (Carbohydrates For Hypoglycemia ) 15 - 30 gm PO UD PRN PRN Reason: Hypoglycemia Protocol Stop: 07/29/24 22:46 Last Admin: 06/30/24 02:57 Dose: 30 gm Miscellaneous Information (Pharmacy Glycemic Mgmt Consult) 1 each N/A UD PRN; Protocol PRN Reason: Consult Stop: 07/30/24 13:08 Senna/Docusate Sodium (Docusate Sodium/Senna 50/8.6mg Tab) [facility] [place]: 07/30/24 08:59 Last Admin: 07/03/24 09:28 Dose: 1 tab Terazosin HCl (Terazosin Hcl 1 Mg Cap) 2 mg PO [facility] Stop: 07/30/24 23:19 Last Admin: 07/02/24 20:39 Dose: 2 mg Vitamin D (Cholecalciferol 25 Mcg (1000 Units) Tab) 25 mcg PO QA [facility] Stop: 08/01/24 15:14 Last Admin: 07/03/24 09:23 Dose: 25 mcg Zinc Sulfate (Zinc Sulfate 220 Mg Capsule) [facility] [place]: 08/01/24 15:14 Last Admin: 07/03/24 09:23 Dose: 220 mg
[2024-07-03 12:37] VITALS: BP 149/68; PULSE 68; TEMP 98.5; O2SAT 97
--- NOTE | 2024-07-03 13:15 | Pharmacy Report ---
Pharmacy Glycemic Short Note 2 - Date of Service July 03, 2024 - Glycemic Short BSG Results (Last 24 hours): 07/02/24 07/02/24 07/03/24 17:09 20:42 07:44 POC Glucose 220 H 260 H 143 H 07/03/24 07/03/24 07/03/24 11:22 12:04 12:05 POC Glucose 300 H 308 H* 311 H* OUTPATIENT ANTIDIABETIC REGIMEN: * Lantus 10 units SC BID * HbA1c = 8% on 06/30/24 ASSESSMENT: 07/03/24: * Blood sugars labile over past 24 hours, ranging 85-260 mg/dL * Lunch blood sugar today of 300 mg/dL. Per RN, patient had uncovered Boost shortly before checking blood sugar. No insulin given in AM. * Will loosen CF now as to not overcorrect this blood sugar. 06/30/24: * 88 y/o M admitted for low blood pressure and bilateral leg weakness. He has history of diabetes and chronic idiopathic neutropenia. * On admission yesterday blood sugar was elevated at 245 mg/dl. He received 5 units of basal insulin and 5 units of Novolog last night. This led to low BSG of 60 mg/dl overnight. * Pharmacy consulted for glycemic management today afternoon. * Novolog parameters loosened. Goal range had already been loosened this afternoon by provider. * Basal insulin continued the same at HS. Will add a BSG check overnight. PLAN FOR INPATIENT GLYCEMIC CONTROL: * Basal insulin * Lantus 6 units SC HS * Bolus insulin * NovoLog per scale ACHS or Q6hrs while NPO * Goal Range: Low 120 mg/dL - High 160 mg/dL * Correction Factor: 50 mg/dL/unit * Nutritional / Prandial insulin per carb ratio of 1 unit per 20 grams CHO consumed
[2024-07-03] MEDS: FLUCONAZOLE 100 MG TAB PO SCH (13:26)
[2024-07-03] MEDS: ACYCLOVIR 200 MG CAP PO SCH (13:26)
[2024-07-03] MEDS ORDERED: LANTUS PER UNIT CHARGE SC SCH (21:00)
--- NOTE | 2024-07-04 07:32 | Discharge Summary ---
Date of Service July 04, 2024 Admission HPI Per Admitting Provider History obtained from patient and records. Medical history significant for PAF, moderate aortic regurgitation, PVD, CVA, hypertension, hyperlipidemia, DM 2 insulin requiring, history of DVT as per records, chronic anemia (baseline hemoglobin 11-12), chronic neutropenia, BPH, history colovesical fistula status post surgery, PMR, skin cancer as per records, past tobacco abuse. Last confinement last year for transient weakness attributed to UTI. Small vessel ischemic disease on stroke workup. Neurology recommended aspirin and discharge. Patient with worsening bilateral leg weakness over the last week. Episode of confusion with urinary incontinence. Patient denies headache, chest pain, SOB. Appetite fair. SBP 70s upon EMS arrival at patient's home. Patient brought to the ER for evaluation. Legs feeling stronger after initial intervention given at the ER. 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 Admission Exam Per Admitting Provider Physical Exam: GENERAL: Slightly uncomfortable, slightly hard of hearing, no respiratory distress SKIN: Pallor, warm HEENT: Bespectacled, pale palpebral conjunctivae, no ptosis, dry buccal mucosa NECK : Supple, no tenderness CHEST : CTA, no tenderness HEART : RRR, no obvious murmurs ABDOMEN: Some distention, nontender EXTREMITIES : No LE swelling/tenderness, no other conspicuous deformities noted NEUROLOGIC : Coherent, no facial asymmetry, slightly hard of hearing, MMTS BUE/BLE 4/5, gait and stance not assessed Principal Diagnosis Generalized weakness, chronic idiopathic neutropenia, electrolyte imbalance, tachyarrhythmia, type 2 diabetes Discharge Exam Lying in bed without any acute distress Constitutional average body habitus; not ill appearing Eyes PERRL, conjunctivae normal, anicteric sclerae ENMT external ear and nose normal, oropharynx normal Neck trachea midline, no thyromegaly Respiratory no respiratory distress Auscultation: lungs clear to auscultation bilaterally Cardiovascular Rate/Rhythm: regular rate and regular rhythm; not tachycardic Heart Sounds: normal S1 and normal S2; no murmur Extremities: no edema Gastrointestinal (Abdomen) Inspection/Auscultation: normal bowel sounds; abdomen not distended Percussion/Palpation: abdomen soft; abdomen nontender Neurologic normal touch/pain/proprioception and moves all extremities; no focal motor deficits Lymphatic no cervical or axillary lymphadenopathy Discharge Data Allergies Allergy/AdvReac Type Severity Reaction Status Date / Time Penicillins Allergy Intermediate HIVES Verified 06/12/24 15:10 Sulfa (Sulfonamide Allergy Intermediate RASH Verified 06/12/24 15:10 Antibiotics) tree and shrub pollen Allergy Intermediate CONGESTION Verified 06/12/24 15:10 Consultations 07/02/24 15:15 Consult Hematology Routine Ordered Studies 06/29/24 18:56 CT head/brain wo con Stat Hospital Course (1) Generalized weakness: This is an 87-year-old male with a PMH of DM II, HTN, RBBB, first-degree AV bloc k, PAF, hyperlipidemia, gout, BPH with obstructive symptoms and chronic idiopathic neutropenia, history of bowel resection who presents to ED with generalized weakness and hypotension. Generalized weakness -> resolved Hypotension Reporting generalized weakness, especially when standing and ambulating over the past week, along with poor PO intake Hypotensive with EMS with BP 75/41, given IV fluids and hypotension resolved [place] that weakness possibly 2/2 viral illness, electrolyte abnormalities, and hypotension/hypovolemia Head CT with no acute intracranial abnormality UA unremarkable Improved symptoms with IV fluids, electrolyte correction Fall precautions Blood pressure is maintaining at lower end of 116/53 Denies any more weakness does not have any focal neurodeficit Will get PT OT evaluation prior to discharge likely tomorrow PT OT recommended home Remains medically stable to be discharged except significantly low white count and neutrophil Remains stable without any significant symptoms and will be discharged home this afternoon Chronic idiopathic neutropenia Bone marrow biopsy from last year showed normocellular marrow with trilineage hematopoiesis and granulocytic hypoplasia Outpatient Hematology follow-up for leukopenia (Patient known to Dr. Lawton.) Neutrophil count has been improving White blood cell count and neutrophil count has been low today Will monitor and repeat tomorrow and discussed with the battery assembler dry cell for possible appointment as an outpatient for Neupogen administration Appreciate battery assembler dry cell input and recommendation Advised to put on suppressive medications to prevent infection including levofloxacin 500 mg daily, acyclovir 200 mL twice daily and fluconazole 100 mg daily. The patient refused to have bone marrow biopsy (2) Hypotension: Hypertension was likely secondary to dehydration Blood pressure noted to be as low as 75/51 and improved with intravenous fluid BP is maintained in the hospital (3) Acute hypokalemia: Hypokalemia hypomagnesemia seen hypokalemia Hypomagnesemia Noted to have low potassium at 3.0 again secondary to poor intake and dehydration Low magnesium and both were replaced Resolved with potassium of 3.9 as of 07/01/2024 (4) PAF (paroxysmal atrial fibrillation): Tachyarrhythmia -> resolved H/o PAF In NSR on arrival, RN overnight reported event of tachycardia when ambulating and using the restroom that has resolved Likely 2/2 dehydration, lyte abnormalities as above HR in 90s today, now HR 68 following atenolol 25mg daily, gentle hydration H/o lone PAF episode in the past, last seen by Dr. Alejo in 2021 CXR with cardiomegaly with pulmonary vascular congestion. Repeat EKG this afternoon showing NSR with 1st degree AV block, similar to previous Continue atenolol 25mg daily Remains in sinus rhythm rate is controlled rate is controlled okay (5) BPH (benign prostatic hyperplasia): (6) DM (diabetes mellitus): DM 2 insulin requiring A1c 8.0 this morning Intermittent hypoglycemic episodes overnight, this afternoon - loosen correctional scale BSG AC HS (7) HTN (hypertension): Plan Other significant medical conditions are as below: CT head showing moderately advanced chronic cerebral small vessel disease and mild generalized atrophy, no acute changes Continue aspirin, statin BPH Terazosin held for hypotension - resume as able Chronic diarrhea History colovesical fistula status post surgery Monitor lytes DVT Ppx: SQ heparin Code status: FULL PCP: Javier Dispo: obs med tele Total Time Total Time Spent Total Time Spent (In Minutes): 35 minutes Discharge Plan Discharge Items Patient Disposition: Home - Self-Care Reason For Visit: HYPOKALEMIA, LOW BP Discharge Diagnosis: Generalized weakness, chronic idiopathic neutropenia, electrolyte imbalance, tachyarrhythmia, type 2 diabetes Condition on Discharge: Fair Activity: Resume your previous activity Non-emergency contact: Primary Care Provider Call non-emergency contact if: you have any medication questions and your symptoms worsen Follow-up/Referrals: Tarun Herrera MD [Primary Care Provider] - (Date & Time 07/10/2024 11:00 AM Provider Tarun Herrera MD Department [facility] ) Diet: Carb Consistent or DM2 Addtl Attending Provider Instructions: Please take precautions to avoid falls Take your medications as advised Please ke keep appointment with the healthcare providers Pending Studies at Discharge: No Stand-Alone Forms: My [facility], Smoking Cessation Medications and DC Order Prescriptions: New fluconazole [Diflucan] 100 mg Tablet 100 mg PO QAM Qty: 30 0RF levofloxacin 500 mg Tablet 500 mg PO DAILY@1100 Qty: 30 0RF Continued (DME) needle (disp) 32 gauge 32 gauge x 5/16" needle See Rx Instructions .Route Qty: 400 3RF Rx Instructions: use 4 per day (DME) FreeStyle [place] 2 [place] Misc See Rx Instructions .Route Qty: 1 0RF Rx Instructions: As directed insulin glargine [Lantus Solostar U-100 Insulin] 100 unit/mL (3 mL) insulin pen 15 unit subcut DAILY Qty: 15 3RF (DME) FreeStyle [place] 2 Sensor Kit See Rx Instructions .Route Qty: 6 3RF Rx Instructions: Change sensor every 14 days insulin regular human 100 unit/mL (3 mL) insulin pen 10 unit subcut BID valacyclovir 1 gram tablet 1,000 mg PO BID Qty: 60 0RF atenolol 25 mg tablet 25 mg PO QAM Qty: 30 0RF azelastine 137 mcg (0.1 %) aerosol,spray 2 spray intranasal BID PRN (Reason: Congestion) Qty: 30 0RF diphenoxylate-atropine [Lomotil] 2.5-0.025 mg Tablet 1 tab PO BID PRN (Reason: Diarrhea) terazosin 2 mg capsule 2 mg PO HS finasteride [Proscar] 5 mg tablet 5 mg PO QAM PRN (Reason: NEEDED PER PT/GMG) aspirin 81 mg Tablet,Delayed Release (Dr/Ec) 81 mg PO QAM Qty: 30 1RF diphenoxylate-atropine 2.5-0.025 mg tablet 1 tab PO BID PRN (Reason: Severe Diarrhea) hydroxyzine HCl 25 mg tablet 25 mg PO Q6 PRN (Reason: Itching) atorvastatin 40 mg tablet ketoconazole 2 % shampoo TOPICAL Discharge Orders: Discharge Order (Routine); Ordered 07/03/24 Ordered By: Cayden Piper Admission Data Admit Date/Time: 07/01/24 16:13 Attending Provider: Cayden Piper Admit Provider: Cayden Piper Primary Care Provider: Tarun Herrera Other Providers: Jed Frias Abhishek Other Interventions: Discharge Summary Assessment (RN) Last Done: 07/03/24 14:52
[2024-07-04] MEDS ORDERED: levoFLOXacin 500 MG TAB PO SCH (11:00)
== END 2024-07-03 15:11 | disposition home or self-care (01) | DRG 641 ==
LOC: ED 16:22 → 2W 16:22 → SUATTDRO 22:46 → 2W 23:37

== ENCOUNTER 2025-02-12 21:18 | Inpatient (IN) ==
[2025-02-12] MEDS: SODIUM CHLORIDE 0.9% 500 ML IV ONE ×2 (21:54→22:52)
[2025-02-12 21:57] LABS: Appearance Urine Clear (Clear); Bacteria Urine Automated 4+ (None Seen); Bilirubin Urine Negative (Negative); Blood Urine Trace (Negative); Cast Urine Automated 0-2 /lpf (0-2); Color Urine Yellow; Epithelial Cell Urine Auto 0-2 /hpf (0-2); Glucose Urine UA Negative (Negative); Ketones Urine Negative (Negative); Leukocyte Esterase Urine Trace (Negative); Nitrite Urine Negative (Negative); Protein Urine Negative (Negative); RBC Urine Automated 0-2 /hpf (0-2); Specific Gravity Urine 1.011 (1.000-1.030); Urobilinogen Urine Negative (Negative); WBC Urine Automated 0-5 /hpf (0-5)
[2025-02-12 22:08] LABS: Albumin Level 3.8 gm/dl (3.4-5.0); Anion Gap 11 (3-11); Bilirubin,Total 0.9 mg/dl (0.2-1.0); Calcium 8.5 mg/dl (8.6-10.3); Carbon Dioxide 18 mmol/L (21-32); Chloride 106 mmol/L (98-107); Magnesium 1.7 mg/dl (1.7-2.4); Potassium 5.2 mmol/L (3.5-5.1); Sodium 135 mmol/L (136-145)
[2025-02-12 22:14] LABS: Alanine Aminotransferase 14 U/L (7-52); Albumin Globulin Ratio 1.3 (0.9-2); Alkaline Phosphatase 95 U/L (34-104); Aspartate Aminotransferase 17 U/L (13-39); BUN Creatinine Ratio 17.7 (10-20); Blood Urea Nitrogen 61 mg/dl (6-23); Creatine Kinase 76 U/L (30-223); Globulin 2.9 gm/dl (2.5-4.0); Glucose 212 mg/dl (70-99(Fasting)); Total Protein 6.7 gm/dl (6.0-8.3)
[2025-02-12 22:19] LABS: Hematocrit (blood only) 37.1 % (42.0-52.0); Hemoglobin 12.7 g/dl (14.0-18.0); Mean Corpuscular Hemoglobin 31.5 pg (25.0-34.0); Mean Corpuscular Hgb Conc 34.2 g/dL (32.0-36.0); Mean Corpuscular Volume 92.1 fL (80.0-100.0); Mean Platelet Volume 8.7 fL (9.4-12.4); Platelet Count 399 K/uL (130-400); RDW Coefficient of Variation 15.3 % (11.5-14.5); RDW Standard Deviation 51.8 fL (36.4-46.3); Red Blood Count 4.03 M/uL (4.70-6.10); Troponin I High Sensitivity 16.5 pg/ml (0-20)
--- NOTE | 2025-02-12 22:23 | Emergency Department Note ---
ED Visit Note I was consulted by the Advanced Practice Provider. I personally made/approved the management plan and take responsibility for the patient management. This includes the aspects of: -History/Physical -MDM .
--- NOTE | 2025-02-12 22:25 | Emergency Department Note ---
History of Present Illness General Chief complaint: Altered Mental Status Stated complaint: AMS, WEAKNESS Time Seen by Provider: 02/12/25 21:25 History of Present Illness This 89-year-old male coming from home with a medical history significant for PAF, moderate aortic regurgitation, PVD, CVA, hypertension, hyperlipidemia, DM 2 insulin requiring, history of DVT as per records, chronic anemia (baseline hemoglobin 11-12), chronic neutropenia, BPH, history colovesical fistula status post surgery, PMR, skin cancer as per records, past tobacco abuse Presents ER for altered mental status for the past few days. History is obtained from EMS. Per EMS nursing, the patient has been altered for the past few days steadily getting worse with vomiting and diarrhea. Patient moans to sternal rub. Nursing BladderScaned him and showed greater than 1500 mL and put a Lopez in. This was sent off for analysis. Home Medications Medication Instructions Recorded Confirmed Type atenolol 25 mg tablet 25 mg PO QAM #30 tabs 01/27/23 06/29/24 Rx azelastine 137 mcg (0.1 %) nasal 2 spray intranasal BID PRN 01/27/23 06/29/24 Rx spray Congestion #30 mL valacyclovir 1 gram tablet 1,000 mg PO BID #60 tabs 01/27/23 06/29/24 Rx diphenoxylate-atropine 2.5 1 tab PO BID PRN Diarrhea 07/04/23 06/29/24 History mg-0.025 mg tablet (Lomotil) finasteride 5 mg tablet (Proscar) 5 mg PO QAM PRN NEEDED PER 07/04/23 06/29/24 History PT/GMG terazosin 2 mg capsule 2 mg PO HS 07/04/23 06/29/24 History aspirin 81 mg tablet,delayed 81 mg PO QAM #30 tabs 07/05/23 06/29/24 Rx release flash glucose scanning reader #1 ea 07/07/23 10/10/24 Rx (FreeStyle Clementine 2 [place]) atorvastatin 40 mg tablet mg 06/29/24 History diphenoxylate-atropine 2.5 1 tab PO BID PRN Severe Diarrhea 06/29/24 06/29/24 History mg-0.025 mg tablet hydroxyzine HCl 25 mg tablet 25 mg PO Q6 PRN Itching 06/29/24 06/29/24 History ketoconazole 2 % shampoo topical 06/29/24 History fluconazole 100 mg tablet 100 mg PO QAM #30 tabs 07/03/24 Rx (Diflucan) levofloxacin 500 mg tablet 500 mg PO DAILY@1100 #30 tabs 07/03/24 Rx pen needle, diabetic 32 gauge x #400 ea 07/07/24 10/10/24 Rx 5/32" (BD Prachi 2nd Gen Pen Needle) FreeStyle Clementine 2 Sensor (flash #6 ea 07/31/24 10/10/24 Rx glucose sensor) insulin glargine 100 unit/mL (3 20 unit (0.2 mL) subcut DAILY #15 10/03/24 10/10/24 Rx mL) subcutaneous pen (Lantus mL Solostar U-100 Insulin) insulin aspart U-100 100 unit/mL 15 unit (0.15 mL) subcut TID #15 mL 10/10/24 10/10/24 Rx (3 mL) subcutaneous pen (Novolog FlexPen U-100 Insulin aspart) Allergies Allergy/AdvReac Type Severity Reaction Status Date / Time Penicillins Allergy Intermediate HIVES Verified 10/10/24 17:05 Sulfa (Sulfonamide Allergy Intermediate RASH Verified 10/10/24 17:05 Antibiotics) tree and shrub pollen Allergy Intermediate CONGESTION Verified 10/10/24 17:05 Past Med/Surg History Problem List (Updated 02/13/25 @ 00:46 by Danni Aragon PA-C) AMS (altered mental status) (Acute) Acute urinary retention (Acute) Acute renal failure (ARF) (Acute) Acute hypokalemia (Acute) Neutropenia (Acute) Generalized weakness (Acute) Acute UTI (Acute) TIA (transient ischemic attack) (Acute) Spell of abnormal behavior Abnormal motor activity Diabetes mellitus type 2 in nonobese Sepsis Acute on chronic urinary retention PAF (paroxysmal atrial fibrillation) Severe neutropenia (Acute) Acute hyperglycemia (Acute) Acute hypotension (Acute) BPH (benign prostatic hyperplasia) Neutropenia Hypotension Abnormal ECG Delirium Acute hyperglycemia (Acute) Ketoacidosis (Acute) Acute dehydration (Acute) Hyperkalemia (Acute) Seasonal allergies Sensorineural hearing loss of both ears DM (diabetes mellitus) (Chronic) HTN (hypertension) (Chronic) 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 Incomplete emptying of bladder (Chronic 11/03/14) Medical History Actinic keratosis BPH (benign prostatic hyperplasia) 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) Diverticulitis (07/23/14) Diverticulitis DM (diabetes mellitus) DVT (deep venous thrombosis) H/O prostatitis HTN (hypertension) Incomplete emptying of bladder (11/03/14) Left leg DVT PAF (paroxysmal atrial fibrillation) PMR (polymyalgia rheumatica) Postoperative urethral stricture Sensorineural hearing loss of both ears Urinary retention UTI (lower urinary tract infection) UTI (lower urinary tract infection) Surgical History History of back surgery History of knee surgery History of surgery S/P TURP Family History Other Family history non-contributory Heart disease No family history of adverse response to anesthesia No family history of bleeding disorder Denies family history of Ovarian cancer Prostate cancer Myocardial infarction Breast cancer Colorectal cancer Social History Smoking Status: Unknown if ever smoked Second Hand Exposure: No; Do You Dip or Chew Tobacco: No; Hx Alcohol Use: No Hx Substance Use: No Preferred Language: Tristanian Communication Ability: Effective Visual Impairment: No Limitations Hearing Ability: Hard of Hearing Track Leader Required: No Beliefs That Will Affect Care: None marital status: Current Living Situation: Spouse Current Living Situation Comment: Single family home current occupational status: retired How many Children do You have: 3 Feels Safe at Home: Yes Childhood Exposure to Second-Hand Smoke: No Diet: regular Dental Care, Regularly: Yes Physical Activity Frequency: 3-4 Times per Week Seatbelt Use: always Sunscreen Use: No Assistive Devices: Cane and Walker Review of Systems A total of 10 systems reviewed and were otherwise negative Physical Exam Vital Signs Vital Signs - 24 hr 02/12/25 21:18 02/12/25 21:38 02/12/25 21:55 Temperature 36.6 C Temperature Source Oral Pulse Rate 108 H Pulse Rate [Right Finger] 80 Pulse Rate from SpO2 Sensor Respiratory Rate 12 24 Respiratory Effort / Characteristics Non-Labored Spontaneous Respiratory Depth Normal Blood Pressure 132/78 123/84 Blood Pressure [Right Arm] 123/84 Blood Pressure Mean 96 96 Blood Pressure Mean [Right Arm] 97 Blood Pressure Position Semi-fowlers Pulse Oximetry 93 94 Oxygen Delivery Method Room Air Room Air Sepsis New/Unexplained Change in Mental Status Yes Sepsis Action Taken by Nursing Physician Notified 02/12/25 22:01 02/12/25 22:03 02/12/25 22:06 Temperature Temperature Source Pulse Rate 80 110 H 77 Pulse Rate [Right Finger] Pulse Rate from SpO2 Sensor 82 Respiratory Rate 27 H 28 H Respiratory Effort / Characteristics Respiratory Depth Blood Pressure Blood Pressure [Right Arm] Blood Pressure Mean Blood Pressure Mean [Right Arm] Blood Pressure Position Pulse Oximetry 100 98 Oxygen Delivery Method Room Air Sepsis New/Unexplained Change in Mental Status Sepsis Action Taken by Nursing 02/12/25 22:06 02/12/25 22:51 02/12/25 22:55 Temperature Temperature Source Pulse Rate 93 H 84 Pulse Rate [Right Finger] Pulse Rate from SpO2 Sensor 96 H Respiratory Rate 21 24 Respiratory Effort / Characteristics Respiratory Depth Blood Pressure 149/55 H 149/55 H Blood Pressure [Right Arm] Blood Pressure Mean 86 78 Blood Pressure Mean [Right Arm] Blood Pressure Position Pulse Oximetry 97 97 Oxygen Delivery Method Room Air Sepsis New/Unexplained Change in Mental Status Sepsis Action Taken by Nursing 02/12/25 23:00 Temperature Temperature Source Pulse Rate 101 H Pulse Rate [Right Finger] Pulse Rate from SpO2 Sensor 91 H Respiratory Rate 24 Respiratory Effort / Characteristics Respiratory Depth Blood Pressure 138/75 Blood Pressure [Right Arm] Blood Pressure Mean 96 Blood Pressure Mean [Right Arm] Blood Pressure Position Pulse Oximetry 98 Oxygen Delivery Method Sepsis New/Unexplained Change in Mental Status Sepsis Action Taken by Nursing VITALS: Vitals are noted on the nurse's note and reviewed by myself. Vital signs stable. GENERAL: Elderly male dehydrated appearing who moans to sternal rub SKIN: The skin was without rashes, erythema, or bruising. There is no tenting of the skin. Capillary reflex less than 2 seconds. HEAD: Normocephalic atraumatic. EARS: External auditory canals clear EYES: Pupils equal round and reactive to light and accommodation. Conjunctivae without injection, sclerae without icterus. Extraocular movements intact. NOSE: Patent, no discharge. MOUTH: Mucous membranes dry. Pharynx without erythema or exudate. Uvula midline. Airway patent. Tongue does not deviate. NECK: Supple without nuchal rigidity. No lymphadenopathy. No thyromegaly. Cervical spine is nontender. No JVD. HEART: Regular rate and rhythm LUNGS: Clear to auscultation bilaterally without wheezes, rales or rhonchi. No retractions or accessory muscle use. ABDOMEN: Positive bowel sounds x 4. Normal tympanic percussion. Soft, nontender, without masses or organomegaly. Amato sign negative. No guarding or rebound tenderness. No CVA tenderness MUSCULOSKELETAL: No muscle atrophy, erythema, or edema noted. NEURO: Patient was arousable to sternal rub but does not follow commands. Course Administered Medications Discontinued Medications Sodium Chloride (Nss) 500 mls @ 999 mls/hr IV .Q31M ONE Stop: 02/12/25 22:14 Last Infusion: 02/12/25 22:52 Dose: Infused Documented By: Admin: 02/12/25 21:54 Dose: 999 mls/hr Documented By: ASW Cefepime HCl (Maxipime 2000mg) 2,000 mg in 20 mls @ 5 mls/min IV NOW STA; Protocol Stop: 02/12/25 21:52 Last Admin: 02/12/25 22:47 Dose: 5 mls/min Documented By: CEF Sodium Chloride (Nss) 500 mls @ 999 mls/hr IV .Q31M ONE Stop: 02/12/25 23:15 Last Infusion: 02/12/25 23:33 Dose: Infused Documented By: Admin: 02/12/25 22:52 Dose: 999 mls/hr Documented By: CEF Medical Decision Making Medical Records Attestation: I reviewed the patient's medical records. Home Medications Current Medication List: was personally reviewed by me Laboratory Data Attestation: I reviewed the patient's lab results. 02/12/25 21:36 02/12/25 21:36 Lab Results 02/12/25 02/12/25 02/12/25 Range/Units 21:25 21:36 21:48 WBC 2.00 L (4.8-10.8) K/ul RBC 4.03 L (4.70-6.10) M/uL Hgb 12.7 L (14.0-18.0) g/dl POC Hgb (14.0-18.0) g/dl Hct 37.1 L (42.0-52.0) % POC Hct (42-52) % MCV 92.1 (80.0-100.0) fL MCH 31.5 (25.0-34.0) pg MCHC 34.2 (32.0-36.0) g/dL RDW Std Deviation 51.8 H (36.4-46.3) fL RDW Coeff of Nam 15.3 H (11.5-14.5) % Plt Count 399 (130-400) K/uL MPV 8.7 L (9.4-12.4) fL Immature Gran % (Auto) 0.5 % Neut % (Auto) 65.0 % Lymph % (Auto) 30.0 % [place] % (Auto) 3.0 % Eos % (Auto) 1.0 % Baso % (Auto) 0.5 % Neut # (Auto) 1.30 L (1.40-6.50) K/uL Lymph # (Auto) 0.60 L (1.20-3.40) K/uL [place] # (Auto) 0.06 L (0.11-0.59) K/uL Eos # (Auto) 0.02 (0.00-0.50) K/uL Baso # (Auto) 0.01 (0.00-0.20) K/uL Immature Gran # (Auto) 0.01 (0.01-0.20) K/uL Echinocytes 1+ POC pH (7.35-7.45) POC pCO2 (35-46) mmHg POC pO2 (80-95) mmHg POC HCO3 (19-24) [place]/L POC Total CO2 (24-31) mmol/L POC Base Excess (-9-1.8) [place]/L POC ABG O2 Sat (90-95) % POC Sodium (135-144) mmol/L Sodium 135 L (136-145) mmol/L POC Potassium (3.3-5.0) mmol/L Potassium 5.2 H (3.5-5.1) mmol/L Chloride 106 (98-107) mmol/L Carbon Dioxide 18 L (21-32) mmol/L Anion Gap 11 (3-11) BUN 61 H (6-23) mg/dl Creatinine 3.44 H (0.6-1.4) mg/dl Est Cr Clr Drug Dosing Not Reportable eGFR 16.34 BUN/Creatinine Ratio 17.7 (10-20) Glucose 212 H (70-99(Fasting)) mg/dl POC Glucose 188 H (70-99) mg/dl Calcium 8.5 L (8.6-10.3) mg/dl Magnesium 1.7 (1.7-2.4) mg/dl Total Bilirubin 0.9 (0.2-1.0) mg/dl AST 17 (13-39) U/L ALT 14 (7-52) U/L Alkaline Phosphatase 95 (34-104) U/L Total Creatine Kinase 76 (30-223) U/L Troponin I High Sens 16.5 (0-20) pg/ml Total Protein 6.7 (6.0-8.3) gm/dl Albumin 3.8 (3.4-5.0) gm/dl Globulin 2.9 (2.5-4.0) gm/dl Albumin/Globulin Ratio 1.3 (0.9-2) TSH 1.546 (0.300-4.500) uIu/ml Urine Color Yellow Urine Appearance Clear (Clear) Urine pH 5.0 (4.5-7.5) Ur Specific [place] 1.011 (1.000-1.030) Urine Protein Negative (Negative) Urine Glucose (UA) Negative (Negative) Urine Ketones Negative (Negative) Urine Blood Trace H (Negative) Urine Nitrite Negative (Negative) Urine Bilirubin Negative (Negative) Urine Urobilinogen Negative (Negative) Ur Leukocyte Esterase Trace H (Negative) Urine WBC (Auto) 0-5 (0-5) /hpf Urine RBC (Auto) 0-2 (0-2) /hpf U Hyaline Cast (Auto) 0-2 (0-2) /lpf U Epithel Cells (Auto) 0-2 (0-2) /hpf Urine Bacteria (Auto) 4+ H (None Seen) SARS-CoV-2 (PCR) NEGATIVE (Negative) 02/12/25 Range/Units 22:25 WBC (4.8-10.8) K/ul RBC (4.70-6.10) M/uL Hgb (14.0-18.0) g/dl POC Hgb 10.9 L (14.0-18.0) g/dl Hct (42.0-52.0) % POC Hct 32 L (42-52) % MCV (80.0-100.0) fL MCH (25.0-34.0) pg MCHC (32.0-36.0) g/dL RDW Std Deviation (36.4-46.3) fL RDW Coeff of Nam (11.5-14.5) % Plt Count (130-400) K/uL MPV (9.4-12.4) fL Immature Gran % (Auto) % Neut % (Auto) % Lymph % (Auto) % [place] % (Auto) % Eos % (Auto) % Baso % (Auto) % Neut # (Auto) (1.40-6.50) K/uL Lymph # (Auto) (1.20-3.40) K/uL [place] # (Auto) (0.11-0.59) K/uL Eos # (Auto) (0.00-0.50) K/uL Baso # (Auto) (0.00-0.20) K/uL Immature Gran # (Auto) (0.01-0.20) K/uL Echinocytes POC pH 7.42 (7.35-7.45) POC pCO2 25 L (35-46) mmHg POC pO2 28 L (80-95) mmHg POC HCO3 16 L (19-24) [place]/L POC Total CO2 17 L (24-31) mmol/L POC Base Excess -8.0 (-9-1.8) [place]/L POC ABG O2 Sat 55.0 L (90-95) % POC Sodium 136 (135-144) mmol/L Sodium (136-145) mmol/L POC Potassium 5.6 H (3.3-5.0) mmol/L Potassium (3.5-5.1) mmol/L Chloride (98-107) mmol/L Carbon Dioxide (21-32) mmol/L Anion Gap (3-11) BUN (6-23) mg/dl Creatinine (0.6-1.4) mg/dl Est Cr Clr Drug Dosing eGFR BUN/Creatinine Ratio (10-20) Glucose (70-99(Fasting)) mg/dl POC Glucose (70-99) mg/dl Calcium (8.6-10.3) mg/dl Magnesium (1.7-2.4) mg/dl Total Bilirubin (0.2-1.0) mg/dl AST (13-39) U/L ALT (7-52) U/L Alkaline Phosphatase (34-104) U/L Total Creatine Kinase (30-223) U/L Troponin I High Sens (0-20) pg/ml Total Protein (6.0-8.3) gm/dl Albumin (3.4-5.0) gm/dl Globulin (2.5-4.0) gm/dl Albumin/Globulin Ratio (0.9-2) TSH (0.300-4.500) uIu/ml Urine Color Urine Appearance (Clear) Urine pH (4.5-7.5) Ur Specific [place] (1.000-1.030) Urine Protein (Negative) Urine Glucose (UA) (Negative) Urine Ketones (Negative) Urine Blood (Negative) Urine Nitrite (Negative) Urine Bilirubin (Negative) Urine Urobilinogen (Negative) Ur Leukocyte Esterase (Negative) Urine WBC (Auto) (0-5) /hpf Urine RBC (Auto) (0-2) /hpf U Hyaline Cast (Auto) (0-2) /lpf U Epithel Cells (Auto) (0-2) /hpf Urine Bacteria (Auto) (None Seen) SARS-CoV-2 (PCR) (Negative) Imaging Data Attestation: I personally reviewed and interpreted this imaging study as follows: Radiologist's Impression: Chest X-Ray 02/12/25 21:23 Exam(s): XR CXR 1 VIEW EXAM: XR Chest, 1 View CLINICAL HISTORY: ams. TECHNIQUE: Frontal view of the chest. COMPARISON: Portable chest single view 06/29/2024 FINDINGS: Lungs: Chronic senescent interstitial changes, stable. No focal airspace consolidation. The pulmonary vasculature demonstrates no significant radiographic abnormality. Pleural space: Unremarkable. No pneumothorax. No large pleural effusion. Heart: Unremarkable. No cardiomegaly. Mediastinum: The mediastinal contours are stable, accounting for alteration projection technique. No tracheal deviation. Bones/joints: Degenerative changes of the shoulders and thoracolumbar spine. No acute osseous abnormality. IMPRESSION: No acute cardiopulmonary process or significant alteration from the prior examination. Electronically signed by: Wai Reddy MD 02/12/25 23:[address] 02/12/25 21:44 Exam(s): CT HEAD Without Contrast EXAM: CT Head Without Intravenous Contrast CLINICAL HISTORY: AMS. TECHNIQUE: Axial computed tomography images of the head/brain without intravenous contrast. CTDI is 38.03 mGy and DLP is 624.41 mGy-cm. Automated exposure control was utilized for the study. A dose lowering technique was utilized adhering to the principles of ALARA. COMPARISON: CT head without contrast dated 06/29/2024 FINDINGS: Limitations: There is diffuse motion artifact, which degrades image quality throughout the examination. Brain: No obvious intracranial hemorrhage; evaluation for subtle extra- axial pathology along the margins of the parenchyma is limited in regions of streak motion artifact. No significant mass effect identified. Areas of decreased attenuation in the deep cerebral white matter are consistent with small vessel ischemic/degenerative changes. The cerebral and cerebellar sulci are prominent consistent with brain atrophy. Ventricles: No midline shift or significant effacement of the ventricles. The ventricles are not significantly altered in size. Bones/joints: No definite skull fracture. Soft tissues: Unremarkable. Vasculature: Atherosclerotic disease. Sinuses: Unremarkable as visualized. No acute sinusitis. Mastoid air cells: Unremarkable as visualized. No mastoid effusion. IMPRESSION: 1. There is diffuse motion artifact, which degrades image quality throughout the examination. 2. No obvious intracranial hemorrhage; evaluation for subtle pathology along the margins of the parenchyma is limited in regions of streak motion artifact. No appreciable significant mass-effect or midline shift. 3. Chronic underlying breakable involutional changes and deep white matter presumed microvascular changes, not significantly progressed when compared to the prior examination. Electronically signed by: Wai Reddy MD 02/12/25 23:38 PM Abdomen/Pelvis CT 02/12/25 22:22 Exam(s): CT ABDOMEN + PELVIS Without Contrast EXAM: CT Abdomen and Pelvis Without Intravenous Contrast CLINICAL HISTORY: ams. TECHNIQUE: Axial computed tomography images of the abdomen and pelvis without intravenous contrast. CTDI is 46.37 mGy and DLP is 1197.95 mGy-cm. Automated exposure control was utilized for the study. A dose lowering technique was utilized adhering to the principles of ALARA. COMPARISON: CT abdomen and pelvis without contrast 01/24/2023 FINDINGS: Artifacts: Scatter artifact likely related to patient's arm position. Limitations: There is diffuse respiratory artifact, which degrades image quality throughout the examination. Lung bases: Curvilinear changes noted at the lung bases. No consolidation. ABDOMEN: Liver: Unremarkable. Gallbladder and bile ducts: Unremarkable. No calcified stones. No ductal dilation. Pancreas: Extensive calcifications throughout the somewhat atrophic pancreas with similar presumed ductal dilation. Evaluation is limited with artifact and lack of IV contrast. No obvious peripancreatic inflammatory changes. Spleen: Unremarkable. No splenomegaly. Adrenals: Unremarkable. No mass. Kidneys and ureters: When compared to the prior examination, there is no moderate right and severe left hydroureteronephrosis with distention of the ureters to the level of the bladder. No obvious nephrolithiasis or bladder stones, accounting for limitations. Stomach and bowel: No evidence for bowel obstruction. Evaluation of bowel mucosa is limited without contrast and respiratory artifact. Moderate stool burden, most prominent involving the rectal vault. No obvious colonic mucosal thickening. PELVIS: Appendix: The appendix is not clearly delineated. Bladder: The bladder is decompressed with a Lopez catheter in position. No obvious bladder wall thickening. No stones. Reproductive: Unremarkable as visualized. ABDOMEN and PELVIS: Intraperitoneal space: Unremarkable. No free air. No significant fluid collection. Bones/joints: No acute fracture. No dislocation. Soft tissues: Unremarkable. Vasculature: Similar atherosclerotic calcification of the aorta. No enlargement. Lymph nodes: Unremarkable. No enlarged lymph nodes. IMPRESSION: 1. There is diffuse respiratory artifact, which degrades image quality throughout the examination. The examination is also limited by lack of IV contrast. 2. When compared to the prior examination, there is no moderate right and severe left hydroureteronephrosis with distention of the ureters to the level of the bladder. No obvious nephrolithiasis or bladder stones, accounting for limitations. No bladder stones. The bladder is decompressed with a Lopez catheter in position. Differential considerations include inflammation with edema of the bladder or distal ureters, limiting urinary excretion versus developing chronic variation with functional urinary retention. Please correlate with laboratory and clinical findings. 3. Extensive calcifications throughout the somewhat atrophic pancreas with similar presumed ductal dilation. Evaluation is limited with artifact and lack of IV contrast. No obvious peripancreatic inflammatory changes. Findings are consistent with chronic pancreatitis, similar to the previous examination. Electronically signed by: Wai Reddy MD 02/12/25 23:[address] 02/12/25 22:22 Exam(s): CT CHEST Without Contrast EXAM: CT Chest Without Intravenous Contrast CLINICAL HISTORY: ams. TECHNIQUE: Axial computed tomography images of the chest without intravenous contrast. CTDI is 46.37 mGy and DLP is 1197.95 mGy-cm. Automated exposure control was utilized for the study. A dose lowering technique was utilized adhering to the principles of ALARA. COMPARISON: CT chest without contrast dated 01/24/2023 FINDINGS: Limitations: There is respiratory artifact, which degrades image quality on multiple image slices. Lungs: No lobar consolidation. There is a rounded focal nodular juxtapleural structure along the posterior medial aspect of the left lower lobe measuring 9 x 11 x 9 mm. Curvilinear changes at the right lung base are stable. Pleural space: The previously noted trace layering pleural effusions have resolved. No pneumothorax. Heart: Cardiac chambers are normal in caliber. Trace pericardial effusion. Chronic coronary artery calcification. Bones/joints: Similar degenerative changes of the shoulders. Bridging osteophytes with degenerative changes of the thoracic spine. No acute osseous abnormality. No dislocation. Soft tissues: Unremarkable. Vasculature: The unenhanced thoracic aorta is normal in caliber. Lymph nodes: Unremarkable. No enlarged lymph nodes. IMPRESSION: 1. No lobar consolidation. There is a rounded focal nodular juxtapleural structure along the posterior medial aspect of the left lower lobe measuring 9 x 11 x 9 mm. Favor rounded atelectasis; however, an underlying solid lesion is not excluded. Recommend short-term minimal follow-up, ideally with expiration and potentially with prone imaging, to evaluate for resolution or potential interval growth. 2. No other significant alteration from the prior examination. Electronically signed by: Wai Reddy MD 02/13/25 00:19 AM MDM Narrative Prior records/ancillary studies reviewed and summarized above. Nursing notes reviewed. Additional history obtained from EMS. The patient's history was concerning for altered mental status. Differential diagnosis: Etiologies such as metabolic, infection, hypoglycemia, electrolyte abnormalities, cardiac sources, intracerebral event, toxicologic, neurologic, as well as others were entertained. Physical examination: As above. ER treatment provided: IV Lock Normal saline hydration. An order was placed for continuous cardiac monitoring. The monitor shows a rate of 60-100 with a sinus rhythm per my interpretation. Lopez was placed and I's and O's were monitored Cefepime was given for possible infection and prior urine culture was reviewed. Patient has a penicillin and sulfa allergy On reassessment the patients mental status improved. Diagnostics interpretation by me: ECG: Ordered for altered mental status EKG: Poor baseline, normal sinus, incomplete right bundle, right axis, rate of 82. Impression normal sinus rhythm with incomplete right bundle independently interpreted by myself The labs Independently Interpreted by myself revealed stable anemia per chart review Acute kidney renal failure Hyperglycemia without DKA. Euthyroid, negative troponin Name: THIAGO KAUFMAN Acct: [id number] Status: [place] 1935 [facility] [place] 0 07/04/23 Age: 89 Sex: M Dis Date: 0 07/05/23 Loc: [address] Rm/Bed: [facility] Spec: [id number] Collected: 07/04/23-UNK Received: 07/04/23-[address]: Renee Mcgee, D.OAleksander Source: Urine,Clean Catch OV Order: Ordered: Urine Culture Procedure Result Verified Site Urine Culture Final 07/06/23 Organism 1 Escherichia coli [place] Count >100,000 CFU/ml Sens Sensitivities to Follow E coli RX M.I.C. --- --------- Amox/Clav S <=8/4 Ampicillin S <=8 Amp/Sul S <=8/4 Cefazolin S <=2 Cefepime S <=2 Ceftriaxone S <=1 Ciprofloxacin S <=0.25 Ertapenem S <=0.5 Gentamicin S <=4 Levofloxacin S <=0.5 Meropenem S <=1 Nitrofurantoin S <=32 Tobramycin S <=4 Trimeth/Sulfa S <=2/38 Pip/Tazo S <=16 S = SENSITIVE I = INTERMEDIATE R = RESISTANT Name: THIAGO KAUFMAN : 1935 PAGE 1 Printed: 02/13/25 0047 END OF REPORT Imaging studies: Imaging was reviewed and read by radiology Given the above diagnostic work-up and treatment, this episode appears to be consistent with renal failure with urinary retention and AMS. Further treatment will be required. Lopez was placed. He was hydrated as above. He was given antibiotics for possible UTI. Prior cultures were reviewed. Consultation: A consultation was placed with the hospitalist. The case was discussed and diagnostics were reviewed. The patient was evaluated in the ER for further treatment. The chart was completed utilizing [employer] Speech voice recognition software. Grammatical errors, random word insertions, pronoun errors, and incomplete sentences are an occassional consequence of this system due to software limitations, ambient noise, and hardware issues. Any formal questions or concerns about the content, text, or information contained within the body of this dictation should be directly addressed to the physician laundry assistant for clarification. Impression & Plan Acute renal failure (ARF), Acute urinary retention, AMS (altered mental status) Discharge Plan Visit Data Chief Complaint: Altered Mental Status Stated Complaint: AMS, WEAKNESS ED Provider: [facility] Midlevel Provider: Danni Aragon Discharge Problem: Acute renal failure (ARF), Acute urinary retention, AMS (altered mental status) Patient Disposition: Admitted As Inpatient Condition: Fair Forms Stand Alone Forms: [facility] [employer] Prescriptions Prescriptions: No Action (DME) FreeStyle [place] 2 [place] Misc See Rx Instructions .Route Qty: 1 0RF Rx Instructions: As directed (DME) pen needle, diabetic [BD Prachi 2nd Gen Pen Needle] 32 gauge x 5/32" needle See Rx Instructions .Route Qty: 400 3RF Rx Instructions: use with each insulin injection 4 times a day (DME) FreeStyle [place] 2 Sensor Kit See Rx Instructions .Route Qty: 6 3RF Rx Instructions: Change sensor every 14 days insulin glargine [Lantus Solostar U-100 Insulin] 100 unit/mL (3 mL) insulin pen 20 unit subcut DAILY Qty: 15 3RF insulin aspart U-100 [Novolog FlexPen U-100 Insulin] 100 unit/mL (3 mL) insulin pen 15 unit subcut TID Qty: 15 5RF Rx Instructions: Inject just prior to meals. valacyclovir 1 gram tablet 1,000 mg PO BID Qty: 60 0RF atenolol 25 mg tablet 25 mg PO QAM Qty: 30 0RF azelastine 137 mcg (0.1 %) aerosol,spray 2 spray intranasal BID PRN (Reason: Congestion) Qty: 30 0RF diphenoxylate-atropine [Lomotil] 2.5-0.025 mg Tablet 1 tab PO BID PRN (Reason: Diarrhea) terazosin 2 mg capsule 2 mg PO HS finasteride [Proscar] 5 mg tablet 5 mg PO QAM PRN (Reason: NEEDED PER PT/GMG) aspirin 81 mg Tablet,Delayed Release (Dr/Ec) 81 mg PO QAM Qty: 30 1RF diphenoxylate-atropine 2.5-0.025 mg tablet 1 tab PO BID PRN (Reason: Severe Diarrhea) hydroxyzine HCl 25 mg tablet 25 mg PO Q6 PRN (Reason: Itching) atorvastatin 40 mg tablet ketoconazole 2 % shampoo TOPICAL fluconazole [Diflucan] 100 mg Tablet 100 mg PO QAM Qty: 30 0RF levofloxacin 500 mg Tablet 500 mg PO DAILY@1100 Qty: 30 0RF Referrals Referrals: Tarun Herrera MD [Primary Care Provider] - Discharge Problem: Acute renal failure (ARF) Qualifiers: Acute renal failure type: unspecified Qualified Code(s): N17.9 - Acute kidney failure, unspecified
[2025-02-12 22:28] LABS: Thyroid Stimulating Hormone 1.546 uIu/ml (0.300-4.500)
[2025-02-12 22:29] LABS: Basophils # (auto) 0.01 K/uL (0.00-0.20); Basophils % (auto) 0.5 %; Echinocytes 1+; Eosinophils # (auto) 0.02 K/uL (0.00-0.50); Immature Granulocytes # (auto) 0.01 K/uL (0.01-0.20); Immature Granulocytes % (auto) 0.5 %; Monocytes # (auto) 0.06 K/uL (0.11-0.59)
[2025-02-12 22:37] LABS: iSTAT Arterial Blood Gas HCO3 16 meg/L (19-24); iSTAT Arterial Blood Gas pCO2 25 mmHg (35-46); iSTAT Arterial Blood Gas pH 7.42 (7.35-7.45); iSTAT Arterial Blood Gas pO2 28 mmHg (80-95); iSTAT Carbon Dioxide 17 mmol/L (24-31); iSTAT Hematocrit 32 % (42-52); iSTAT Hemoglobin 10.9 g/dl (14.0-18.0); iSTAT Potassium 5.6 mmol/L (3.3-5.0); iSTAT Sodium 136 mmol/L (135-144)
[2025-02-12] MEDS: CEFEPIME 2000MG 2,000 MG/20 ML SYR IV STA (22:47)
--- NOTE | 2025-02-12 23:38 | CT Scan Report ---
Exam(s): CT HEAD Without Contrast EXAM: CT Head Without Intravenous Contrast CLINICAL HISTORY: AMS. TECHNIQUE: Axial computed tomography images of the head/brain without intravenous contrast. CTDI is 38.03 mGy and DLP is 624.41 mGy-cm. Automated exposure control was utilized for the study. A dose lowering technique was utilized adhering to the principles of ALARA. COMPARISON: CT head without contrast dated 06/29/2024 FINDINGS: Limitations: There is diffuse motion artifact, which degrades image quality throughout the examination. Brain: No obvious intracranial hemorrhage; evaluation for subtle extra- axial pathology along the margins of the parenchyma is limited in regions of streak motion artifact. No significant mass effect identified. Areas of decreased attenuation in the deep cerebral white matter are consistent with small vessel ischemic/degenerative changes. The cerebral and cerebellar sulci are prominent consistent with brain atrophy. Ventricles: No midline shift or significant effacement of the ventricles. The ventricles are not significantly altered in size. Bones/joints: No definite skull fracture. Soft tissues: Unremarkable. Vasculature: Atherosclerotic disease. Sinuses: Unremarkable as visualized. No acute sinusitis. Mastoid air cells: Unremarkable as visualized. No mastoid effusion. IMPRESSION: 1. There is diffuse motion artifact, which degrades image quality throughout the examination. 2. No obvious intracranial hemorrhage; evaluation for subtle pathology along the margins of the parenchyma is limited in regions of streak motion artifact. No appreciable significant mass-effect or midline shift. 3. Chronic underlying breakable involutional changes and deep white matter presumed microvascular changes, not significantly progressed when compared to the prior examination. Electronically signed by: Wai Reddy MD 02/12/25 23:38 PM
--- NOTE | 2025-02-12 23:44 | CT Scan Report ---
Exam(s): CT ABDOMEN + PELVIS Without Contrast EXAM: CT Abdomen and Pelvis Without Intravenous Contrast CLINICAL HISTORY: ams. TECHNIQUE: Axial computed tomography images of the abdomen and pelvis without intravenous contrast. CTDI is 46.37 mGy and DLP is 1197.95 mGy-cm. Automated exposure control was utilized for the study. A dose lowering technique was utilized adhering to the principles of ALARA. COMPARISON: CT abdomen and pelvis without contrast 01/24/2023 FINDINGS: Artifacts: Scatter artifact likely related to patient's arm position. Limitations: There is diffuse respiratory artifact, which degrades image quality throughout the examination. Lung bases: Curvilinear changes noted at the lung bases. No consolidation. ABDOMEN: Liver: Unremarkable. Gallbladder and bile ducts: Unremarkable. No calcified stones. No ductal dilation. Pancreas: Extensive calcifications throughout the somewhat atrophic pancreas with similar presumed ductal dilation. Evaluation is limited with artifact and lack of IV contrast. No obvious peripancreatic inflammatory changes. Spleen: Unremarkable. No splenomegaly. Adrenals: Unremarkable. No mass. Kidneys and ureters: When compared to the prior examination, there is no moderate right and severe left hydroureteronephrosis with distention of the ureters to the level of the bladder. No obvious nephrolithiasis or bladder stones, accounting for limitations. Stomach and bowel: No evidence for bowel obstruction. Evaluation of bowel mucosa is limited without contrast and respiratory artifact. Moderate stool burden, most prominent involving the rectal vault. No obvious colonic mucosal thickening. PELVIS: Appendix: The appendix is not clearly delineated. Bladder: The bladder is decompressed with a Lopez catheter in position. No obvious bladder wall thickening. No stones. Reproductive: Unremarkable as visualized. ABDOMEN and PELVIS: Intraperitoneal space: Unremarkable. No free air. No significant fluid collection. Bones/joints: No acute fracture. No dislocation. Soft tissues: Unremarkable. Vasculature: Similar atherosclerotic calcification of the aorta. No enlargement. Lymph nodes: Unremarkable. No enlarged lymph nodes. IMPRESSION: 1. There is diffuse respiratory artifact, which degrades image quality throughout the examination. The examination is also limited by lack of IV contrast. 2. When compared to the prior examination, there is no moderate right and severe left hydroureteronephrosis with distention of the ureters to the level of the bladder. No obvious nephrolithiasis or bladder stones, accounting for limitations. No bladder stones. The bladder is decompressed with a Lopez catheter in position. Differential considerations include inflammation with edema of the bladder or distal ureters, limiting urinary excretion versus developing chronic variation with functional urinary retention. Please correlate with laboratory and clinical findings. 3. Extensive calcifications throughout the somewhat atrophic pancreas with similar presumed ductal dilation. Evaluation is limited with artifact and lack of IV contrast. No obvious peripancreatic inflammatory changes. Findings are consistent with chronic pancreatitis, similar to the previous examination. Electronically signed by: Wai Reddy MD 02/12/25 23:43 PM
--- NOTE | 2025-02-12 23:55 | XRay Report ---
Exam(s): XR CXR 1 VIEW EXAM: XR Chest, 1 View CLINICAL HISTORY: ams. TECHNIQUE: Frontal view of the chest. COMPARISON: Portable chest single view 06/29/2024 FINDINGS: Lungs: Chronic senescent interstitial changes, stable. No focal airspace consolidation. The pulmonary vasculature demonstrates no significant radiographic abnormality. Pleural space: Unremarkable. No pneumothorax. No large pleural effusion. Heart: Unremarkable. No cardiomegaly. Mediastinum: The mediastinal contours are stable, accounting for alteration projection technique. No tracheal deviation. Bones/joints: Degenerative changes of the shoulders and thoracolumbar spine. No acute osseous abnormality. IMPRESSION: No acute cardiopulmonary process or significant alteration from the prior examination. Electronically signed by: Wai Reddy MD 02/12/25 23:53 PM
--- NOTE | 2025-02-13 00:20 | CT Scan Report ---
Exam(s): CT CHEST Without Contrast EXAM: CT Chest Without Intravenous Contrast CLINICAL HISTORY: ams. TECHNIQUE: Axial computed tomography images of the chest without intravenous contrast. CTDI is 46.37 mGy and DLP is 1197.95 mGy-cm. Automated exposure control was utilized for the study. A dose lowering technique was utilized adhering to the principles of ALARA. COMPARISON: CT chest without contrast dated 01/24/2023 FINDINGS: Limitations: There is respiratory artifact, which degrades image quality on multiple image slices. Lungs: No lobar consolidation. There is a rounded focal nodular juxtapleural structure along the posterior medial aspect of the left lower lobe measuring 9 x 11 x 9 mm. Curvilinear changes at the right lung base are stable. Pleural space: The previously noted trace layering pleural effusions have resolved. No pneumothorax. Heart: Cardiac chambers are normal in caliber. Trace pericardial effusion. Chronic coronary artery calcification. Bones/joints: Similar degenerative changes of the shoulders. Bridging osteophytes with degenerative changes of the thoracic spine. No acute osseous abnormality. No dislocation. Soft tissues: Unremarkable. Vasculature: The unenhanced thoracic aorta is normal in caliber. Lymph nodes: Unremarkable. No enlarged lymph nodes. IMPRESSION: 1. No lobar consolidation. There is a rounded focal nodular juxtapleural structure along the posterior medial aspect of the left lower lobe measuring 9 x 11 x 9 mm. Favor rounded atelectasis; however, an underlying solid lesion is not excluded. Recommend short-term minimal follow-up, ideally with expiration and potentially with prone imaging, to evaluate for resolution or potential interval growth. 2. No other significant alteration from the prior examination. Electronically signed by: Wai Reddy MD 02/13/25 00:19 AM
[2025-02-13] MEDS: SODIUM BICARB 8.4% INJ 50 MEQ/50 ML SYR IV STA (01:29)
--- NOTE | 2025-02-13 02:59 | History & Physical Report ---
Date of Service February 13, 2025 Assessment & Plan (1) Encephalopathy: Plan: Encephalopathy ARF secondary to diarrheal illness rule out C. difficile given chronic anti- infective prophylaxis for history chronic neutropenia bilateral hydronephrosis on imaging/obstructive uropathy, history of BPH PAF not on anticoagulation valvular heart disease (mild /AR) PVD, CVA hypertension, stable hyperlipidemia, not on statin Rx DM 2 insulin requiring, suboptimal control as of recent hemoglobin A1c of 8 last year history of DVT as per records chronic anemia, hemoglobin at baseline history colovesical fistula status post surgery past tobacco abuse Admit to medical telemetry Stool cultures, stool C. difficile Maintain Lopez catheter Monitor creatinine response to IVF Urology consult re: obstructive uropathy Basal bolus insulin, ISS BG goal 1 10-1 40, carb count coverage, update hemoglobin A1c PT OT eval once medically stable DVT prophylaxis. Heparin subcu Full code Attempted to contact patient's over the phone (Ms. Yin Daugherty, contact #[phone]) to obtain additional history and discussed plan of care. No answer, left message for call back. Text document was generated using [employer] voice recognition software. It may contain grammatical or spelling errors. Kindly contact undersigned for clarification of any documentation item in question. History of Present Illness Chief Complaint: Altered mental status as per records Primary Care Provider: Tarun Herrera MD Listory obtained from patient and records. Limited history from patient secondary to confusion. 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 Last confinement June 2024 for generalized weakness and hypotension. Hematology consulted for chronic idiopathic neutropenia. Patient has refused bone marrow biopsy recommendations in the past. [employer] recommended chronic anti-infective prophylaxis (Levaquin, acyclovir, fluconazole) on discharge. Patient noted to be confused the last few days. Vomiting and diarrhea symptoms. Patient not taking his medications. Patient brought to ER for evaluation. 2 L of urine upon Lopez catheter insertion. 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 Allergies Allergy/AdvReac Type Severity Reaction Status Date / Time Penicillins Allergy Intermediate HIVES Verified 10/10/24 17:05 Sulfa (Sulfonamide Allergy Intermediate RASH Verified 10/10/24 17:05 Antibiotics) tree and shrub pollen Allergy Intermediate CONGESTION Verified 10/10/24 17:05 Home Medications Medication Instructions Recorded Confirmed Type atenolol 25 mg tablet 25 mg PO QAM #30 tabs 01/27/23 02/13/25 Rx azelastine 137 mcg (0.1 %) nasal 2 spray intranasal BID PRN 01/27/23 02/13/25 Rx spray Congestion #30 mL valacyclovir 1 gram tablet 1,000 mg PO BID #60 tabs 01/27/23 02/13/25 Rx finasteride 5 mg tablet (Proscar) 5 mg PO QAM PRN NEEDED PER 07/04/23 02/13/25 History PT/GMG terazosin 2 mg capsule 2 mg PO HS 07/04/23 02/13/25 History aspirin 81 mg tablet,delayed 81 mg PO QAM #30 tabs 07/05/23 02/13/25 Rx release flash glucose scanning reader #1 ea 07/07/23 10/10/24 Rx (FreeStyle Clement[place] 2 [place]) diphenoxylate-atropine 2.5 1 tab PO BID PRN Severe Diarrhea 06/29/24 02/13/25 History mg-0.025 mg tablet hydroxyzine HCl 25 mg tablet 25 mg PO Q6 PRN Itching 06/29/24 02/13/25 History ketoconazole 2 % shampoo 1 applic topical DIRECTED 06/29/24 02/13/25 History fluconazole 100 mg tablet 100 mg PO QAM #30 tabs 07/03/24 02/13/25 Rx (Diflucan) levofloxacin 500 mg tablet 500 mg PO DAILY@1100 #30 tabs 07/03/24 02/13/25 Rx pen needle, diabetic 32 gauge x #400 ea 07/07/24 10/10/24 Rx 5/32" (BD Prachi 2nd Gen Pen Needle) FreeStyle Clementine 2 Sensor (flash #6 ea 07/31/24 10/10/24 Rx glucose sensor) insulin glargine 100 unit/mL (3 20 unit (0.2 mL) subcut DAILY #15 10/03/24 02/13/25 Rx mL) subcutaneous pen (Lantus mL Solostar U-100 Insulin) insulin aspart U-100 100 unit/mL 15 unit (0.15 mL) subcut TID #15 mL 10/10/24 02/13/25 Rx (3 mL) subcutaneous pen (Novolog FlexPen U-100 Insulin aspart) clobetasol 0.05 % topical ointment 1 applic topical BID 02/13/25 02/13/25 History lidocaine 4 % topical patch 1 patch topical BID PRN Pain 02/13/25 02/13/25 History melatonin 3 mg tablet 3 mg PO HS PRN Sleep 02/13/25 02/13/25 History Past Med/Surg History Problem List (Updated 02/13/25 @ 08:54 by Suhas Fonseca MD) Encephalopathy AMS (altered mental status) (Acute) Acute urinary retention (Acute) Acute renal failure (ARF) (Acute) Acute hypokalemia (Acute) Neutropenia (Acute) Generalized weakness (Acute) Acute UTI (Acute) TIA (transient ischemic attack) (Acute) Spell of abnormal behavior Abnormal motor activity Diabetes mellitus type 2 in nonobese Sepsis Acute on chronic urinary retention PAF (paroxysmal atrial fibrillation) Severe neutropenia (Acute) Acute hyperglycemia (Acute) Acute hypotension (Acute) BPH (benign prostatic hyperplasia) Neutropenia Hypotension Abnormal ECG Delirium Acute hyperglycemia (Acute) Ketoacidosis (Acute) Acute dehydration (Acute) Hyperkalemia (Acute) Seasonal allergies Sensorineural hearing loss of both ears DM (diabetes mellitus) (Chronic) HTN (hypertension) (Chronic) 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 Incomplete emptying of bladder (Chronic 11/03/14) Medical History PMR (polymyalgia rheumatica) Postoperative urethral stricture DVT (deep venous thrombosis) Actinic keratosis Urinary retention UTI (lower urinary tract infection) UTI (lower urinary tract infection) Left leg DVT H/O prostatitis Diverticulitis Diverticulitis (07/23/14) Surgical History History of surgery Stomach, skin History of back surgery History of knee surgery S/P TURP Family History Other Family history non-contributory Heart disease No family history of adverse response to anesthesia No family history of bleeding disorder Denies family history of Ovarian cancer Prostate cancer Myocardial infarction Breast cancer Colorectal cancer Social History Smoking Status: Unknown if ever smoked Second Hand Exposure: No; Do You Dip or Chew Tobacco: No; Hx Alcohol Use: No (Unknown) Hx Substance Use: No Preferred Language: Vietnamese Communication Ability: Effective Visual Impairment: No Limitations Hearing Ability: Hard of Hearing Seat Coverer Required: No Beliefs That Will Affect Care: None marital status: Current Living Situation: Spouse Current Living Situation Comment: Single family home current occupational status: retired How many Children do You have: 3 Feels Safe at Home: Yes Childhood Exposure to Second-Hand Smoke: No Diet: regular Dental Care, Regularly: Yes Physical Activity Frequency: 3-4 Times per Week Seatbelt Use: always Sunscreen Use: No Assistive Devices: Cane and Walker Review of Systems Review of Systems: Could not be reliably obtained secondary to confusion Physical Exam Physical Exam: GENERAL: Disoriented, slightly hard of hearing, no respiratory distress SKIN: Pallor, warm HEENT: pale palpebral conjunctivae, no ptosis, dry buccal mucosa NECK : Supple, no tenderness CHEST : CTA, no tenderness HEART : RRR, systolic murmur ABDOMEN: Some distention, nontender EXTREMITIES : No LE swelling/tenderness, no other conspicuous deformities noted NEUROLOGIC : Disoriented, no facial asymmetry, hard of hearing, gait and stance not assessed Results & Data Results & Data Vital Signs (Past 12 Hours) Vital Signs Temp Pulse Pulse Resp BP BP Pulse Ox 02/13/25 02:06 82 02/13/25 02:01 82 23 125/76 98 02/13/25 01:30 96 H 23 135/64 97 02/13/25 01:00 85 24 132/53 L 97 02/13/25 00:30 94 H 20 142/68 H 96 02/13/25 00:00 103 H 32 H 118/58 L 98 02/12/25 23:00 101 H 24 138/75 98 02/12/25 22:55 84 24 149/55 H 97 02/12/25 22:51 93 H 21 149/55 H 97 02/12/25 22:06 02/12/25 22:06 77 28 H 98 02/12/25 22:03 110 H 27 H 100 02/12/25 22:01 80 02/12/25 21:55 80 24 123/84 94 02/12/25 21:38 123/84 02/12/25 21:18 36.6 C 108 H 12 132/78 93 O2 Del Method 02/13/25 02:06 02/13/25 02:01 02/13/25 01:30 02/13/25 01:00 02/13/25 00:30 Room Air 02/13/25 00:00 02/12/25 23:00 02/12/25 22:55 02/12/25 22:51 02/12/25 22:06 Room Air 02/12/25 22:06 Room Air 02/12/25 22:03 02/12/25 22:01 02/12/25 21:55 Room Air 02/12/25 21:38 02/12/25 21:18 Room Air Laboratory Results Laboratory Results WBC 2.00 K/ul (4.8-10.8) L 02/12/25 21:36 RBC 4.03 M/uL (4.70-6.10) L 02/12/25 21:36 Hgb 12.7 g/dl (14.0-18.0) L 02/12/25 21:36 POC Hgb 10.9 g/dl (14.0-18.0) L 02/12/25 22:25 Hct 37.1 % (42.0-52.0) L 02/12/25 21:36 POC Hct 32 % (42-52) L 02/12/25 22:25 MCV 92.1 fL (80.0-100.0) 02/12/25 21:36 MCH 31.5 pg (25.0-34.0) 02/12/25 21:36 MCHC 34.2 g/dL (32.0-36.0) 02/12/25 21:36 RDW Std Deviation 51.8 fL (36.4-46.3) H 02/12/25 21:36 RDW Coeff of Nam 15.3 % (11.5-14.5) H 02/12/25: Plt Count 399 K/uL (130-400) 02/12/25: MPV 8.7 fL (9.4-12.4) L 02/12/25: Immature Gran % (Auto) 0.5 % 02/12/25: Neut % (Auto) 65.0 % 02/12/25: Lymph % (Auto) 30.0 % 02/12/25:36 [place] % (Auto) 3.0 % 02/12/25: Eos % (Auto) 1.0 % 02/12/25: Baso % (Auto) 0.5 % 02/12/25: Neut # (Auto) 1.30 K/uL (1.40-6.50) L 02/12/25: Lymph # (Auto) 0.60 K/uL (1.20-3.40) L 02/12/25: [place] # (Auto) 0.06 K/uL (0.11-0.59) L 02/12/25: Eos # (Auto) 0.02 K/uL (0.00-0.50) 02/12/25: Baso # (Auto) 0.01 K/uL (0.00-0.20) 02/12/25: Immature Gran # (Auto) 0.01 K/uL (0.01-0.20) 02/12/25: Echinocytes 1+ 02/12/25: POC pH 7.42 (7.35-7.45) 02/12/25: POC pCO2 25 mmHg (35-46) L 02/12/25: POC pO2 28 mmHg (80-95) L 02/12/25: POC HCO3 16 [place]/L (19-24) L 02/12/25: POC Total CO2 17 mmol/L (24-31) L 02/12/25: POC Base Excess -8.0 [place]/L (-9-1.8) 02/12/25: POC ABG O2 Sat 55.0 % (90-95) L 02/12/25 22:25 POC Sodium 136 mmol/L (135-144) 02/12/25 22:25 Sodium 135 mmol/L (136-145) L 02/12/25 21:36 POC Potassium 5.6 mmol/L (3.3-5.0) H 02/12/25 22: Potassium 5.2 mmol/L (3.5-5.1) H 02/12/25 21:36 Chloride 106 mmol/L (98-107) 02/12/25:36 Carbon Dioxide 18 mmol/L (21-32) L 02/12/25 21:36 Anion Gap 11 (3-11) 02/12/25:36 BUN 61 mg/dl (6-23) H 02/12/25 21:36 Creatinine 3.44 mg/dl (0.6-1.4) H 02/12/25 21:36 Est Cr Clr Drug Dosing Not Reportable 02/12/25: eGFR 16.34 02/12/25: BUN/Creatinine Ratio 17.7 (10-20) 02/12/25 21:36 Glucose 212 mg/dl (70-99(Fasting)) H 02/12/25 21:36 POC Glucose 188 mg/dl (70-99) H 02/12/25: Calcium 8.5 mg/dl (8.6-10.3) L 02/12/25 21:36 Magnesium 1.7 mg/dl (1.7-2.4) 02/12/25:36 Total Bilirubin 0.9 mg/dl (0.2-1.0) 02/12/25:36 AST 17 U/L (13-39) 02/12/25 21:36 ALT 14 U/L (7-52) 02/12/25 21:36 Alkaline Phosphatase 95 U/L (34-104) 02/12/25 21:36 Total Creatine Kinase 76 U/L (30-223) 02/12/25 21:36 Troponin I High Sens 16.5 pg/ml (0-20) 02/12/25 21:36 Total Protein 6.7 gm/dl (6.0-8.3) 02/12/25: Albumin 3.8 gm/dl (3.4-5.0) 02/12/25 21:36 Globulin 2.9 gm/dl (2.5-4.0) 02/12/25 21:36 Albumin/Globulin Ratio 1.3 (0.9-2) 02/12/25 21:36 TSH 1.546 uIu/ml (0.300-4.500) 02/12/25 21:36 Urine Color Yellow 02/12/25 21:36 Urine Appearance Clear (Clear) 02/12/25 21:36 Urine pH 5.0 (4.5-7.5) 02/12/25 21:36 Ur Specific [place] 1.011 (1.000-1.030) 02/12/25 21:36 Urine Protein Negative (Negative) 02/12/25 21:36 Urine Glucose (UA) Negative (Negative) 02/12/25 21:36 Urine Ketones Negative (Negative) 02/12/25 21:36 Urine Blood Trace (Negative) H 02/12/25 21:36 Urine Nitrite Negative (Negative) 02/12/25 21:36 Urine Bilirubin Negative (Negative) 02/12/25 21:36 Urine Urobilinogen Negative (Negative) 02/12/25 21:36 Ur Leukocyte Esterase Trace (Negative) H 02/12/25 21:36 Urine WBC (Auto) 0-5 /hpf (0-5) 02/12/25 21:36 Urine RBC (Auto) 0-2 /hpf (0-2) 02/12/25 21:36 U Hyaline Cast (Auto) 0-2 /lpf (0-2) 02/12/25 21:36 U Epithel Cells (Auto) 0-2 /hpf (0-2) 02/12/25 21:36 Urine Bacteria (Auto) 4+ (None Seen) H 02/12/25 21:36 SARS-CoV-2 (PCR) NEGATIVE (Negative) 02/12/25 21:48 Impressions Chest X-Ray 02/12/25 21:23 Exam(s): XR CXR 1 VIEW EXAM: XR Chest, 1 View CLINICAL HISTORY: ams. TECHNIQUE: Frontal view of the chest. COMPARISON: Portable chest single view 06/29/2024 FINDINGS: Lungs: Chronic senescent interstitial changes, stable. No focal airspace consolidation. The pulmonary vasculature demonstrates no significant radiographic abnormality. Pleural space: Unremarkable. No pneumothorax. No large pleural effusion. Heart: Unremarkable. No cardiomegaly. Mediastinum: The mediastinal contours are stable, accounting for alteration projection technique. No tracheal deviation. Bones/joints: Degenerative changes of the shoulders and thoracolumbar spine. No acute osseous abnormality. IMPRESSION: No acute cardiopulmonary process or significant alteration from the prior examination. Electronically signed by: Wai Reddy MD 02/12/25 23:[address] 02/12/25 21:44 Exam(s): CT HEAD Without Contrast EXAM: CT Head Without Intravenous Contrast CLINICAL HISTORY: AMS. TECHNIQUE: Axial computed tomography images of the head/brain without intravenous contrast. CTDI is 38.03 mGy and DLP is 624.41 mGy-cm. Automated exposure control was utilized for the study. A dose lowering technique was utilized adhering to the principles of ALARA. COMPARISON: CT head without contrast dated 06/29/2024 FINDINGS: Limitations: There is diffuse motion artifact, which degrades image quality throughout the examination. Brain: No obvious intracranial hemorrhage; evaluation for subtle extra- axial pathology along the margins of the parenchyma is limited in regions of streak motion artifact. No significant mass effect identified. Areas of decreased attenuation in the deep cerebral white matter are consistent with small vessel ischemic/degenerative changes. The cerebral and cerebellar sulci are prominent consistent with brain atrophy. Ventricles: No midline shift or significant effacement of the ventricles. The ventricles are not significantly altered in size. Bones/joints: No definite skull fracture. Soft tissues: Unremarkable. Vasculature: Atherosclerotic disease. Sinuses: Unremarkable as visualized. No acute sinusitis. Mastoid air cells: Unremarkable as visualized. No mastoid effusion. IMPRESSION: 1. There is diffuse motion artifact, which degrades image quality throughout the examination. 2. No obvious intracranial hemorrhage; evaluation for subtle pathology along the margins of the parenchyma is limited in regions of streak motion artifact. No appreciable significant mass-effect or midline shift. 3. Chronic underlying breakable involutional changes and deep white matter presumed microvascular changes, not significantly progressed when compared to the prior examination. Electronically signed by: Wai Reddy MD 02/12/25 23:38 PM Abdomen/Pelvis CT 02/12/25 22:22 Exam(s): CT ABDOMEN + PELVIS Without Contrast EXAM: CT Abdomen and Pelvis Without Intravenous Contrast CLINICAL HISTORY: ams. TECHNIQUE: Axial computed tomography images of the abdomen and pelvis without intravenous contrast. CTDI is 46.37 mGy and DLP is 1197.95 mGy-cm. Automated exposure control was utilized for the study. A dose lowering technique was utilized adhering to the principles of ALARA. COMPARISON: CT abdomen and pelvis without contrast 01/24/2023 FINDINGS: Artifacts: Scatter artifact likely related to patient's arm position. Limitations: There is diffuse respiratory artifact, which degrades image quality throughout the examination. Lung bases: Curvilinear changes noted at the lung bases. No consolidation. ABDOMEN: Liver: Unremarkable. Gallbladder and bile ducts: Unremarkable. No calcified stones. No ductal dilation. Pancreas: Extensive calcifications throughout the somewhat atrophic pancreas with similar presumed ductal dilation. Evaluation is limited with artifact and lack of IV contrast. No obvious peripancreatic inflammatory changes. Spleen: Unremarkable. No splenomegaly. Adrenals: Unremarkable. No mass. Kidneys and ureters: When compared to the prior examination, there is no moderate right and severe left hydroureteronephrosis with distention of the ureters to the level of the bladder. No obvious nephrolithiasis or bladder stones, accounting for limitations. Stomach and bowel: No evidence for bowel obstruction. Evaluation of bowel mucosa is limited without contrast and respiratory artifact. Moderate stool burden, most prominent involving the rectal vault. No obvious colonic mucosal thickening. PELVIS: Appendix: The appendix is not clearly delineated. Bladder: The bladder is decompressed with a Lopez catheter in position. No obvious bladder wall thickening. No stones. Reproductive: Unremarkable as visualized. ABDOMEN and PELVIS: Intraperitoneal space: Unremarkable. No free air. No significant fluid collection. Bones/joints: No acute fracture. No dislocation. Soft tissues: Unremarkable. Vasculature: Similar atherosclerotic calcification of the aorta. No enlargement. Lymph nodes: Unremarkable. No enlarged lymph nodes. IMPRESSION: 1. There is diffuse respiratory artifact, which degrades image quality throughout the examination. The examination is also limited by lack of IV contrast. 2. When compared to the prior examination, there is no moderate right and severe left hydroureteronephrosis with distention of the ureters to the level of the bladder. No obvious nephrolithiasis or bladder stones, accounting for limitations. No bladder stones. The bladder is decompressed with a Lopez catheter in position. Differential considerations include inflammation with edema of the bladder or distal ureters, limiting urinary excretion versus developing chronic variation with functional urinary retention. Please correlate with laboratory and clinical findings. 3. Extensive calcifications throughout the somewhat atrophic pancreas with similar presumed ductal dilation. Evaluation is limited with artifact and lack of IV contrast. No obvious peripancreatic inflammatory changes. Findings are consistent with chronic pancreatitis, similar to the previous examination. Electronically signed by: Wai Reddy MD 02/12/25 23:[address] 02/12/25 22:22 Exam(s): CT CHEST Without Contrast EXAM: CT Chest Without Intravenous Contrast CLINICAL HISTORY: ams. TECHNIQUE: Axial computed tomography images of the chest without intravenous contrast. CTDI is 46.37 mGy and DLP is 1197.95 mGy-cm. Automated exposure control was utilized for the study. A dose lowering technique was utilized adhering to the principles of ALARA. COMPARISON: CT chest without contrast dated 01/24/2023 FINDINGS: Limitations: There is respiratory artifact, which degrades image quality on multiple image slices. Lungs: No lobar consolidation. There is a rounded focal nodular juxtapleural structure along the posterior medial aspect of the left lower lobe measuring 9 x 11 x 9 mm. Curvilinear changes at the right lung base are stable. Pleural space: The previously noted trace layering pleural effusions have resolved. No pneumothorax. Heart: Cardiac chambers are normal in caliber. Trace pericardial effusion. Chronic coronary artery calcification. Bones/joints: Similar degenerative changes of the shoulders. Bridging osteophytes with degenerative changes of the thoracic spine. No acute osseous abnormality. No dislocation. Soft tissues: Unremarkable. Vasculature: The unenhanced thoracic aorta is normal in caliber. Lymph nodes: Unremarkable. No enlarged lymph nodes. IMPRESSION: 1. No lobar consolidation. There is a rounded focal nodular juxtapleural structure along the posterior medial aspect of the left lower lobe measuring 9 x 11 x 9 mm. Favor rounded atelectasis; however, an underlying solid lesion is not excluded. Recommend short-term minimal follow-up, ideally with expiration and potentially with prone imaging, to evaluate for resolution or potential interval growth. 2. No other significant alteration from the prior examination. Electronically signed by: Wai Reddy MD 02/13/25 00:19 AM Diagnostic Findings EKG as per my interpretation :Rate 80, NSR, RAD, incomplete RBBB, multiple artifacts
[2025-02-13] MEDS ORDERED: DEXTROSE 50% 50 ML SYRINGE IV PRN (03:33)
[2025-02-13] MEDS ORDERED: GLUCAGON FOR INJ 1 MG VIAL SQ PRN (03:33)
[2025-02-13] MEDS ORDERED: GLUCOSE 10 TAB/TUBE PO PRN (03:33)
[2025-02-13] MEDS ORDERED: GLUCOSE 40% GEL 15 GM TUBE PO PRN (03:33)
[2025-02-13] MEDS: SODIUM CHLORIDE 0.9% 1,000 ML IV ONE (03:51)
[2025-02-13] MEDS: INSULIN ASPART PER UNIT CHARGE SC SCH (04:07)
[2025-02-13 04:11] LABS: HCO3 VBG 20 mmol/L; Oxygen Saturation VBG < 60.0 %; PCO2 VBG 32 mmHg (38-50); PO2 VBG 29 mmHg
[2025-02-13 04:29] LABS: Hemoglobin 10.4 g/dl (14.0-18.0); Mean Corpuscular Hemoglobin 31.8 pg (25.0-34.0); Mean Corpuscular Hgb Conc 34.7 g/dL (32.0-36.0); Mean Corpuscular Volume 91.7 fL (80.0-100.0); Mean Platelet Volume 8.6 fL (9.4-12.4); Platelet Count 290 K/uL (130-400); RDW Coefficient of Variation 15.1 % (11.5-14.5); RDW Standard Deviation 50.5 fL (36.4-46.3); Red Blood Count 3.27 M/uL (4.70-6.10); White Blood Count 1.79 K/ul (4.8-10.8)
[2025-02-13 04:31] LABS: Anion Gap 9 (3-11); BUN Creatinine Ratio 19.8 (10-20); Blood Urea Nitrogen 55 mg/dl (6-23); Calcium 7.9 mg/dl (8.6-10.3); Carbon Dioxide 21 mmol/L (21-32); Chloride 111 mmol/L (98-107); Glucose 172 mg/dl (70-99(Fasting)); Potassium 4.5 mmol/L (3.5-5.1); Sodium 141 mmol/L (136-145)
[2025-02-13 04:52] LABS: Dohle Bodies 1+; Immature Granulocytes # (auto) 0.03 K/uL (0.01-0.20); Immature Granulocytes % (auto) 1.7 %; Lymphocytes # (auto) 0.51 K/uL (1.20-3.40); Lymphocytes % (auto) 28.5 %; Monocytes # (auto) 0.07 K/uL (0.11-0.59); Monocytes % (auto) 3.9 %; Neutrophils # (auto) 1.18 K/uL (1.40-6.50); Neutrophils % (auto) 65.9 %
--- NOTE | 2025-02-13 06:02 | Urology Consultation ---
Date of Consultation February 13, 2025 Assessment & Plan (1) Acute urinary retention: Patient is being admitted on the hospitalist service. From a urologic perspective we recommend the following: I suspect the patient's acute kidney injury and hydronephrosis are due to urinary retention Lopez catheter has been placed and is draining clear yellow urine. This should be left in place for the present time Serial labs to be followed Depending on how patient's clinical course progresses a voiding trial could be attempted after several days of bladder rest Additional recommendations be forthcoming based on his clinical course as unfolds History of Present Illness Reason for Consultation: Obstructive uropathy Attending Physician: Cayden Piper MD History of Present Illness This is an 89-year-old male who presented to the emergency department secondary to altered mental status. At the time my interview the patient could not provide any meaningful information and history is obtained from review of record and discussion with treatment emergency room staff. According to records the patient has been noted to have altered mental status for the past few days with reported vomiting and diarrhea. Urology was asked to see the patient secondary to obstructive uropathy. I did attempt to question patient on urologic symptoms they could not offer any history of symptoms such as decreased urine stream or dysuria. Records have been reviewed and he has followed in the past with [facility] physician group urology. The patient has reportedly had a TURP in the past. He did have issues with urinary retention in the past requiring catheter placement (this was most recently approximately January 2023.). Patient did have a voiding trial at that time. Plans were in place for patient undergo cystoscopy but is unclear of whether or not this was ever performed. Since arrival to the emergency department patient has had labs and imaging which independent reviewed. Chest x-ray showed no evidence of pneumonia. CT scan of the head showed motion artifact without any obvious intracranial hemorrhage. A CT scan of the abdomen pelvis showed the patient had moderate right-sided hydronephrosis and severe left-sided hydronephrosis. There are no obvious nephrolithiasis or bladder stones. The bladder was noted to be decompressed with a Lopez catheter in place. A CT scan of the chest showed no lobar consolidations. Labs including CBC were white blood cell count was 1.7. Hemoglobin and hematocrit were 10.4 and 30.0. Platelet count is normal. Chemistry profile showed sodium was normal with a potassium of 4.5. BUN and creatinine were 55 and 2.7. (Review of records show the creatinine typically runs within the normal range). Urinalysis showed trace leukocyte Estrace and 4+ bacteria. The specimen was negative for pyuria or nitrates. At the time of my interview the patient appeared to be comfortable and not appear to be in distress. Allergies Allergy/AdvReac Type Severity Reaction Status Date / Time Penicillins Allergy Intermediate HIVES Verified 10/10/24 17:05 Sulfa (Sulfonamide Allergy Intermediate RASH Verified 10/10/24 17:05 Antibiotics) tree and shrub pollen Allergy Intermediate CONGESTION Verified 10/10/24 17:05 Home Medications Medication Instructions Recorded Confirmed Type atenolol 25 mg tablet 25 mg PO QAM #30 tabs 01/27/23 02/13/25 Rx azelastine 137 mcg (0.1 %) nasal 2 spray intranasal BID PRN 01/27/23 02/13/25 Rx spray Congestion #30 mL valacyclovir 1 gram tablet 1,000 mg PO BID #60 tabs 01/27/23 02/13/25 Rx finasteride 5 mg tablet (Proscar) 5 mg PO QAM PRN NEEDED PER 07/04/23 02/13/25 History PT/GMG terazosin 2 mg capsule 2 mg PO HS 07/04/23 02/13/25 History aspirin 81 mg tablet,delayed 81 mg PO QAM #30 tabs 07/05/23 02/13/25 Rx release flash glucose scanning reader #1 ea 07/07/23 10/10/24 Rx (FreeStyle Clementine 2 [place]) diphenoxylate-atropine 2.5 1 tab PO BID PRN Severe Diarrhea 06/29/24 02/13/25 History mg-0.025 mg tablet hydroxyzine HCl 25 mg tablet 25 mg PO Q6 PRN Itching 06/29/24 02/13/25 History ketoconazole 2 % shampoo 1 applic topical DIRECTED 06/29/24 02/13/25 History fluconazole 100 mg tablet 100 mg PO QAM #30 tabs 07/03/24 02/13/25 Rx (Diflucan) levofloxacin 500 mg tablet 500 mg PO DAILY@1100 #30 tabs 07/03/24 02/13/25 Rx pen needle, diabetic 32 gauge x #400 ea 07/07/24 10/10/24 Rx 5/32" (BD Prachi 2nd Gen Pen Needle) FreeStyle Clementine 2 Sensor (flash #6 ea 07/31/24 10/10/24 Rx glucose sensor) insulin glargine 100 unit/mL (3 20 unit (0.2 mL) subcut DAILY #15 10/03/24 02/13/25 Rx mL) subcutaneous pen (Lantus mL Solostar U-100 Insulin) insulin aspart U-100 100 unit/mL 15 unit (0.15 mL) subcut TID #15 mL 10/10/24 02/13/25 Rx (3 mL) subcutaneous pen (Novolog FlexPen U-100 Insulin aspart) clobetasol 0.05 % topical ointment 1 applic topical BID 02/13/25 02/13/25 History lidocaine 4 % topical patch 1 patch topical BID PRN Pain 02/13/25 02/13/25 History melatonin 3 mg tablet 3 mg PO HS PRN Sleep 02/13/25 02/13/25 History Patient History Medical History PMR (polymyalgia rheumatica) Postoperative urethral stricture DVT (deep venous thrombosis) Actinic keratosis Urinary retention UTI (lower urinary tract infection) UTI (lower urinary tract infection) Left leg DVT H/O prostatitis Diverticulitis Diverticulitis (07/23/14) Surgical History History of surgery Stomach, skin History of back surgery History of knee surgery S/P TURP Family History Other Family history non-contributory Heart disease No family history of adverse response to anesthesia No family history of bleeding disorder Denies family history of Ovarian cancer Prostate cancer Myocardial infarction Breast cancer Colorectal cancer Social History Smoking Status: Unknown if ever smoked Second Hand Exposure: No; Do You Dip or Chew Tobacco: No; Hx Alcohol Use: No (Unknown) Hx Substance Use: No Preferred Language: Kosovan Communication Ability: Effective Visual Impairment: No Limitations Hearing Ability: Hard of Hearing Client Service Supervisor Required: No Beliefs That Will Affect Care: None marital status: Current Living Situation: Spouse Current Living Situation Comment: Single family home current occupational status: retired How many Children do You have: 3 Feels Safe at Home: Yes Childhood Exposure to Second-Hand Smoke: No Diet: regular Dental Care, Regularly: Yes Physical Activity Frequency: 3-4 Times per Week Seatbelt Use: always Sunscreen Use: No Assistive Devices: Cane and Walker Review of Systems Review of Systems: Unobtainable due to cognitive status Physical Exam Constitutional: no acute distress Eyes: no conjunctival abnormality ENMT: Ears: no external ear abnormality Neck: trachea midline Respiratory: normal respiratory effort; no respiratory distress and no labored breathing Cardiovascular: Rate/Rhythm: regular rate and regular rhythm Gastrointestinal (Abdomen): Soft and nontender to palpation Musculoskeletal: No calf tenderness Skin: no rashes Neurologic: moves all extremities Genitourinary: No CVA tenderness with percussion bilaterally. Lopez catheter is in place draining clear urine Results & Data Vital Signs (Past 12 Hours) Vital Signs Temp Pulse Pulse Resp BP BP Pulse Ox 02/13/25 04:00 84 22 139/65 97 02/13/25 03:30 90 20 122/56 L 97 02/13/25 03:30 36.8 C 92 H 22 122/56 L 96 02/13/25 03:00 89 24 132/48 L 97 02/13/25 02:30 96 H 20 121/59 L 97 02/13/25 02:06 82 02/13/25 02:01 82 23 125/76 98 02/13/25 01:30 96 H 23 135/64 97 02/13/25 01:00 85 24 132/53 L 97 02/13/25 00:30 94 H 20 142/68 H 96 02/13/25 00:00 103 H 32 H 118/58 L 98 02/12/25 23:00 101 H 24 138/75 98 02/12/25 22:55 84 24 149/55 H 97 02/12/25 22:51 93 H 21 149/55 H 97 02/12/25 22:06 02/12/25 22:06 77 28 H 98 02/12/25 22:03 110 H 27 H 100 02/12/25 22:01 80 02/12/25 21:55 80 24 123/84 94 02/12/25 21:38 123/84 02/12/25 21:18 36.6 C 108 H 12 132/78 93 O2 Del Method O2 Flow Rate 02/13/25 04:00 02/13/25 03:30 02/13/25 03:30 Nasal Cannula 2 02/13/25 03:00 02/13/25 02:30 02/13/25 02:06 02/13/25 02:01 02/13/25 01:30 02/13/25 01:00 02/13/25 00:30 Room Air 02/13/25 00:00 02/12/25 23:00 02/12/25 22:55 02/12/25 22:51 02/12/25 22:06 Room Air 02/12/25 22:06 Room Air 02/12/25 22:03 02/12/25 22:01 02/12/25 21:55 Room Air 02/12/25 21:38 02/12/25 21:18 Room Air PG Care Time/CCT Total # of Minutes Spent Total Time Spent with Patient: Total time spent is greater than 50% in coordination of care (as documented) at patient's floor/unit and/or counseling patient: Coding Level of Care Code 13945 INT INP/OBS CARE 3/75MIN Diagnoses Acute urinary retention R33.8
[2025-02-13] MEDS: HEPARIN SOD 5,000 UNIT/0.5 ML VIAL SQ SCH (06:37)
[2025-02-13] MEDS: LANTUS PER UNIT CHARGE SQ SCH (08:46)
[2025-02-13] MEDS: ATENOLOL 25 MG TABLET PO SCH (08:46)
[2025-02-13] MEDS: ACETAMINOPHEN 500 MG TAB PO PRN (08:47)
[2025-02-13 08:48] LABS: Estimated Average Glucose 180 mg/dl; Hemoglobin A1C 7.9 % (4.5-5.6)
[2025-02-13] MEDS ORDERED: LANTUS PER UNIT CHARGE SQ SCH (09:00)
[2025-02-13] MEDS: Patient's HEIGHT Needed STA (09:50)
[2025-02-13] MEDS: ASPIRIN 81 MG ECTAB PO SCH (10:10)
[2025-02-13] MEDS: FLUCONAZOLE 50 MG TAB PO SCH (10:10)
--- NOTE | 2025-02-13 10:20 | Electrocardiogram Report ---
Test Reason : Blood Pressure : */* mmHG Vent. Rate : 82 BPM Atrial Rate : 82 BPM P-R Int : 188 ms QRS Dur : 106 ms QT Int : 374 ms P-R-T Axes : 31 90 78 degrees QTcB Int : 436 ms Poor data quality, interpretation may be adversely affected Normal sinus rhythm Rightward axis Incomplete right bundle branch block T wave abnormality, consider anterior ischemia Abnormal ECG When compared with ECG of 30-Jun-2024 12:59, OK interval has decreased Incomplete right bundle branch block has replaced Right bundle branch block Non-specific change in ST segment in Anterior leads Confirmed by Henry Carbajal ([id number]) on 02/13/2025 10:20:38 AM Referred By: REFERRED SELF Confirmed By: Henry Carbajal
[2025-02-13] MEDS: levoFLOXacin 250 MG TABLET PO SCH (11:30)
[2025-02-13] MEDS: valACYclovir HCL 500 MG TABLET PO SCH (11:30)
--- NOTE | 2025-02-13 17:28 | Communication Note ---
Date of Service: February 13, 2025 The patient was seen and examined in emergency room. He was admitted with change in mental status secondary to acute on chronic renal failure and also noted to have obstructive uropathy with subsequent UTI. He has been getting intravenous fluid, oral antibiotic and has urinary catheter in place by the urologist. He remains hemodynamically stable and has been feeling much better since admission with unremarkable examination. Full progress note will be done tomorrow. DR Michael Piper
[2025-02-13] MEDS: TERAZOSIN HCL 1 MG CAP PO SCH (20:10)
[2025-02-13] MEDS: MELATONIN 3 MG TAB PO PRN (20:11)
[2025-02-14 08:02] LABS: Hematocrit (blood only) 27.6 % (42.0-52.0); Hemoglobin 9.9 g/dl (14.0-18.0); Mean Corpuscular Hgb Conc 35.9 g/dL (32.0-36.0); Mean Corpuscular Volume 89.3 fL (80.0-100.0); Mean Platelet Volume 9.2 fL (9.4-12.4); Platelet Count 261 K/uL (130-400); RDW Coefficient of Variation 15.4 % (11.5-14.5); RDW Standard Deviation 50.2 fL (36.4-46.3); Red Blood Count 3.09 M/uL (4.70-6.10)
[2025-02-14 08:23] LABS: Calcium 7.6 mg/dl (8.6-10.3); Creatinine Clr Calc Pharmacy 28.7 ml/min; Magnesium 1.3 mg/dl (1.7-2.4); Potassium 3.7 mmol/L (3.5-5.1)
[2025-02-14 08:32] LABS: Adenovirus F 40/41 PCR Not Detected (NotDetected); Astrovirus PCR Not Detected (NotDetected); Campylobacter PCR Not Detected (NotDetected); Cryptosporidium PCR Not Detected (NotDetected); Cyclospora cayetanensis PCR Not Detected (NotDetected); Entamoeba histolytica PCR Not Detected (NotDetected); Enteroaggregative E.coli(EAEC) Not Detected (NotDetected); Enteropathogenic E.coli (EPEC) Not Detected (NotDetected); Enterotoxigenic E.coli (ETEC) Not Detected (NotDetected); Giardia lamblia PCR Not Detected (NotDetected); Norovirus GI/GII PCR Not Detected (NotDetected); Plesiomonas shigelloides PCR Not Detected (NotDetected); Rotavirus A PCR Not Detected (NotDetected); Salmonella PCR Not Detected (NotDetected); Sapovirus PCR Not Detected (NotDetected); Shiga-like Toxin E.coli (STEC) Not Detected (NotDetected); Shigella/Enteroinvasive E.coli Not Detected (NotDetected); Vibrio cholerae PCR Not Detected (NotDetected); Vibrio species PCR Not Detected (NotDetected); Yersinia enterocolitica PCR Not Detected (NotDetected)
[2025-02-14 08:36] LABS: Dohle Bodies 1+; Toxic Granulation 1+; White Blood Count 1.86 K/ul (4.8-10.8)
[2025-02-14 08:39] LABS: ANC (manual) 1.19 K/uL (1.4-6.5); Eosinophils # (manual) 0.04 K/uL (0-0.50); Eosinophils % (manual) 2 %; Lymphocytes % (manual) 27 %; Metamyelocytes # (manual) 0.04 K/uL (0-0); Metamyelocytes % (manual) 2 %; Monocytes # (manual) 0.09 K/uL (0.11-0.59); Monocytes % (manual) 5 %; Neutrophils # (manual) 1.19 K/uL (1.40-6.50); Neutrophils % (manual) 64 %
[2025-02-14] MEDS: INSULIN ASPART PER UNIT CHARGE SC SCH (09:45)
--- NOTE | 2025-02-14 09:47 | Urology Progress Note ---
Date of Service February 14, 2025 Assessment & Plan (1) Acute renal failure (ARF): (2) Acute urinary retention: (3) Encephalopathy: (4) Acute UTI: Plan: 89-year-old male admitted for encephalopathy, KAREN, urinary retention. Patient afebrile, hemodynamically stable Labs reviewedcreatinine downtrending- 1.63 today, WBC 1.86, hemoglobin 9.9 Urine culture prelim with E. coli Blood cultures with no growth x [address] for management of urinary retention Plan: No acute intervention at this time Recommend maintain Lopez for 1-2 weeks Continue antibiotics per culture for complicated UTI Continue with Terazosin Per outpatient records, he was previously on Finasteride Recommend resume Finasteride for dual therapy Recommend follow-up with urology as outpatient to discuss [facility] management of urinary retention Admission and Anticipated Discharge Date Admission Date: February 13, 2025 Subjective Patient awake and resting in bed. Denies flank or bladder pain at present. Lopez intact. No nausea, vomiting, fever or chills. Review of Systems Constitutional: as per Subjective / HPI Genitourinary: + as per Subjective / HPI Physical Exam Constitutional: no acute distress Respiratory: no respiratory distress and no labored breathing Musculoskeletal: Head/Neck/Chest: normocephalic Neurologic: moves all extremities and awake Psychiatric: Orientation: alert and oriented x 3 Genitourinary: Lopez patent and draining clear yellow urine Results & Data Vital Signs (Past 12 Hours) Vital Signs Temp Pulse Pulse Resp BP Pulse Ox Pulse Ox 02/14/25 07:43 36.8 C 69 18 110/56 L 96 02/14/25 06:45 60 02/14/25 06:00 95 02/14/25 03:11 36.6 C 61 18 101/51 L 96 02/13/25 23:20 36.9 C 64 18 104/49 L 96 02/13/25 22:05 70 O2 Del Method O2 Del Method 02/14/25 07:43 Room Air 02/14/25 06:45 02/14/25 06:00 Room Air 02/14/25 03:11 Room Air 02/13/25 23:20 Room Air 02/13/25 22:05 PG Care Time/CCT Total # of Minutes Spent Total Time Spent with Patient: Total time spent is greater than 50% in coordination of care (as documented) at patient's floor/unit and/or counseling patient: Coding Level of Care Code 23558 SUB INP/OBS CARE 2MIN Diagnoses Acute renal failure (ARF) N17.9 Acute renal failure type: unspecified Acute urinary retention R33.8 Encephalopathy G93.40 Acute UTI N39.0 (1) Acute renal failure (ARF) Acute renal failure type: unspecified Qualified Code(s): N17.9 - Acute kidney failure, unspecified
[2025-02-14] MEDS: MAGNESIUM SULFATE / D5W 1 GM/100 ML BAG IV SCH (11:02)
--- NOTE | 2025-02-14 14:13 | Hospitalist Progress Note ---
Date of Service February 14, 2025 Assessment & Plan (1) Encephalopathy: (2) Acute urinary retention: (3) Acute UTI: Plan Acute metabolic encephalopathy Acute urinary retention Acute kidney injury Acute UTI Patient presented to the hospital with altered mental status Found to have urinary retention for which Lopez catheter was placed Urinalysis positive for infection Urine culture growing E. 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 Patient refused repeat bone marrow biopsy. Paroxysmal atrial fibrillationcontinue on atenolol, not on anticoagulation Type 2 diabetes mellituscontinue on Lantus, NovoLog hyperlipidemia, not on statin Rx history of DVT as per records chronic anemia, hemoglobin at baseline history colovesical fistula status post surgery past tobacco abuse Time spent evaluating patient, direct bedside care, chart review, placing orders, interpretation of diagnostic studies, discussion with consultants, patient, and family members, as well as other required patient management activities is 50 minutes Please note the above document was generated using voice recognition software. It may contain grammatical, syntax or spelling errors. Any formal questions or concerns about the content, text or information contained within the body of this dictation should be directly addressed to the provider for clarification Admission and Anticipated Discharge Date Admission Date: February 13, 2025 Subjective Patient seen and examined at bedside. He is lying in the bed comfortably; denies any pain or discomfort Lopez in place draining clear urine No significant events overnight Review of Systems Review of Systems: All systems reviewed & are unremarkable except as noted in Subjective Physical Exam Physical Exam: Constitutional: Awake, oriented to self. Not in distress Respiratory: normal respiratory effort, lungs clear to auscultation, no wheeze, rales, rhonchi. Normal insp/exp effort, no accessory muscle use Cardiovascular: RRR, no murmur, no edema Vessels: no JVD or carotid bruit Chest: normal inspection of chest Abdomen: normal bowel sounds, soft, nontender, no hepatosplenomegaly Musculoskeletal: no cyanosis or clubbing, extremities motor strength 5/5 Skin: no rashes, warm and dry normal turgor Neurologic: PERRL, EOMI, accommodation nl, no face palsy, no dysarthria CN's II- XI intact bilaterally and moves all extremities Results & Data Results & Data Vital Signs (Past 12 Hours) Vital Signs Temp Pulse Pulse Resp BP Pulse Ox Pulse Ox 02/14/25 11:24 36.4 C L 65 18 105/51 L 98 02/14/25 07:43 36.8 C 69 18 110/56 L 96 02/14/25 06:45 60 02/14/25 06:00 95 02/14/25 03:11 36.6 C 61 18 101/51 L 96 O2 Del Method O2 Del Method 02/14/25 11:24 Room Air 02/14/25 07:43 Room Air 02/14/25 06:45 02/14/25 06:00 Room Air 02/14/25 03:11 Room Air
[2025-02-14] MEDS: cefTRIAXone SODIUM 2,000 MG/50 ML BAG IV SCH (15:27)
[2025-02-14] MEDS: HYDROCORTISONE ACETATE 25 MG SUPP PR PRN (15:28)
[2025-02-14] MEDS: OLANZAPINE 2.5 MG TAB PO STA (20:11)
[2025-02-14] MEDS ORDERED: PHA DELIRIUM CONSULT PRN (21:26)
[2025-02-15 07:55] LABS: Mean Corpuscular Hemoglobin 31.6 pg (25.0-34.0); Mean Corpuscular Hgb Conc 34.5 g/dL (32.0-36.0); Mean Corpuscular Volume 91.8 fL (80.0-100.0); Mean Platelet Volume 8.9 fL (9.4-12.4); Platelet Count 307 K/uL (130-400); RDW Coefficient of Variation 15.3 % (11.5-14.5); Red Blood Count 3.16 M/uL (4.70-6.10)
[2025-02-15 08:13] LABS: BUN Creatinine Ratio 26.6 (10-20); Calcium 7.8 mg/dl (8.6-10.3); Creatinine Clr Calc Pharmacy 33.7 ml/min; Potassium 3.6 mmol/L (3.5-5.1)
[2025-02-15 09:22] LABS: Dohle Bodies 1+; Eosinophils # (auto) 0.02 K/uL (0.00-0.50); Eosinophils % (auto) 1.3 %; Immature Granulocytes # (auto) 0.07 K/uL (0.01-0.20); Immature Granulocytes % (auto) 4.4 %; Lymphocytes # (auto) 0.45 K/uL (1.20-3.40); Lymphocytes % (auto) 28.1 %; Monocytes # (auto) 0.05 K/uL (0.11-0.59); Monocytes % (auto) 3.1 %; Neutrophils # (auto) 1.01 K/uL (1.40-6.50); Neutrophils % (auto) 63.1 %
[2025-02-15] MEDS: ASPIRIN 81 MG CHEW PO SCH (09:22)
--- NOTE | 2025-02-15 11:46 | Hospitalist Progress Note ---
Date of Service February 15, 2025 Assessment & Plan (1) Encephalopathy: (2) Acute urinary retention: (3) Acute UTI: Plan Acute metabolic encephalopathy Acute urinary retention Acute kidney injury Acute UTI Patient presented to the hospital with altered mental status Found to have urinary retention for which Lopez catheter was placed Urinalysis positive for infection Urine culture growing E. 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 Patient refused repeat bone marrow biopsy. Paroxysmal atrial fibrillationcontinue on atenolol, not on anticoagulation Type 2 diabetes mellituscontinue on Lantus, NovoLog hyperlipidemia, not on statin Rx history of DVT as per records chronic anemia, hemoglobin at baseline history colovesical fistula status post surgery past tobacco abuse Call patient's at the number provided in the contact information; unable to get through. Time spent evaluating patient, direct bedside care, chart review, placing orders, interpretation of diagnostic studies, discussion with consultants, patient, and family members, as well as other required patient management activities is 50 minutes Please note the above document was generated using voice recognition software. It may contain grammatical, syntax or spelling errors. Any formal questions or concerns about the content, text or information contained within the body of this dictation should be directly addressed to the provider for clarification Admission and Anticipated Discharge Date Admission Date: February 13, 2025 Subjective Patient seen and examined at bedside. He is answering more questions appropriately. He denies any pain or discomfort. Overnight, he was agitated and required restraints as he was pulling on the Lopez catheter. Review of Systems Review of Systems: All systems reviewed & are unremarkable except as noted in Subjective Physical Exam Physical Exam: Constitutional: Awake, oriented to self. Not in distress Respiratory: normal respiratory effort, lungs clear to auscultation, no wheeze, rales, rhonchi. Normal insp/exp effort, no accessory muscle use Cardiovascular: RRR, no murmur, no edema Vessels: no JVD or carotid bruit Chest: normal inspection of chest Abdomen: normal bowel sounds, soft, nontender, no hepatosplenomegaly Musculoskeletal: no cyanosis or clubbing, extremities motor strength 5/5 Skin: no rashes, warm and dry normal turgor Neurologic: PERRL, EOMI, accommodation nl, no face palsy, no dysarthria CN's II- XI intact bilaterally and moves all extremities Results & Data Results & Data Vital Signs (Past 12 Hours) Vital Signs Temp Pulse Pulse Resp BP Pulse Ox O2 Del Method 02/15/25 11:14 36.6 C 65 16 103/53 L 98 Room Air 02/15/25 07:46 36.4 C L 64 16 116/55 L 98 Room Air 02/15/25 06:45 64 02/15/25 03:12 36.6 C 65 18 124/53 L 98 Room Air 02/14/25 23:52 36.3 C L 65 18 113/51 L 98 Room Air
--- NOTE | 2025-02-15 21:10 | XRay Report ---
EXAM: XR hip RT 2V w pelvis CLINICAL HISTORY: Rule out fracture. TECHNIQUE: X-ray images of the right hip joints and pelvis were obtained in anteroposterior (AP)and lateral projection. COMPARISON: No prior studies available for comparison. FINDINGS: Osteopenia Mild osteo degenerative change sin the form of naoorwing of ip joint spaces with osteophyte formations There is no obvious fractures lines could be noted The abnormal configuration of the right femoral neck likley projectional , however further clinical correlation/CT study is suggested if warranted clinically. Enesthopathy of the ischial bones and greater trochanters Possible bilateral sacroiliitis Symphysis Pubis: Symphysis pubis is normal and intact. No evidence of separation or widening. Soft Tissues: Visualized soft tissues are normal and unremarkable. No soft tissue swelling, calcifications, or masses. Additional Findings: Vascular calcifications. IMPRESSION: 1. No definite evidence of acute fracture or dislocation. 2. Mild hip osteoarthritis. 3. Osteopenia. DISCLAIMER:A subtle bone abnormality or fracture may not be readily apparent on x-rays, thus clinical correlation and further imaging including follow up CT, MRI, or follow up x-rays are advised as needed. Electronically signed by Levi Sol 02-15-2025 9:10 PM
[2025-02-15 22:05] LABS: A calco-baum cmplx NotReported Not Detected (NotDetected); Bact fragilis Not Reported Not Detected (NotDetected); Blood Culture Id Panel See PCR Comment (NotDetected); C auris Not Reported Not Detected (NotDetected); Calbicans Not Reported Not Detected (NotDetected); Candida glabrata Not Reported Not Detected (NotDetected); Candida krusei Not Reported Not Detected (NotDetected); Cneoformans/gatti Not Reported Not Detected (NotDetected); Cparapsilosis Not Reported Not Detected (NotDetected); Ctropicalis Not Reported Not Detected (NotDetected); E cloacae compx Not Reported Not Detected (NotDetected); Efaecalis Not Reported Not Detected (NotDetected); Efaecium Not Reported Not Detected (NotDetected); Enterobacterales Not Reported Not Detected (NotDetected); Escherichia coli Not Reported Not Detected (NotDetected); H influenzae Not Reported Not Detected (NotDetected); K aerogenes Not Reported Not Detected (NotDetected); Koxytoca Not Reported Not Detected (NotDetected); Kpneumoniae grp Not Reported Not Detected (NotDetected); Lmonocyt Not Reported Not Detected (NotDetected); N meningitidis Not Reported Not Detected (NotDetected); P aeruginosa Not Reported Not Detected (NotDetected); Proteus spp Not Reported Not Detected (NotDetected); Salmonella spp Not Reported Not Detected (NotDetected); Staph lugdunensis Not Reported Not Detected (NotDetected); Staph spp. Not Reported DETECTED (NotDetected); Staphaureus Not Reported Not Detected (NotDetected); Staphepi Not Reported Not Detected (NotDetected); Stenmaltophilia Not Reported Not Detected (NotDetected); Strep agal(GrpB) Not Reported Not Detected (NotDetected); Strep pneum Not Reported Not Detected (NotDetected); Strep pyog (GrpA) Not Reported Not Detected (NotDetected); Strep spp Not Reported Not Detected (NotDetected)
[2025-02-15 22:45] LABS: Staphylococcus spp. DETECTED (NotDetected)
[2025-02-15] MEDS ORDERED: VANCOMYCIN CONSULT ACTIVE PRN (22:54)
[2025-02-16] MEDS: VANCOMYCIN HCL 1,250 MG in SODIUM CHLORIDE 0.9% 250 ML IV STA (00:17)
[2025-02-16 06:09] LABS: Hematocrit (blood only) 29.5 % (42.0-52.0); Hemoglobin 10.2 g/dl (14.0-18.0); Mean Corpuscular Hemoglobin 31.7 pg (25.0-34.0); Mean Corpuscular Hgb Conc 34.6 g/dL (32.0-36.0); Mean Corpuscular Volume 91.6 fL (80.0-100.0); Platelet Count 358 K/uL (130-400); RDW Coefficient of Variation 14.9 % (11.5-14.5); Red Blood Count 3.22 M/uL (4.70-6.10); White Blood Count 1.49 K/ul (4.8-10.8)
[2025-02-16 06:31] LABS: BUN Creatinine Ratio 24.6 (10-20); Calcium 7.7 mg/dl (8.6-10.3); Creatinine Clr Calc Pharmacy 37.2 ml/min; Potassium 3.2 mmol/L (3.5-5.1)
[2025-02-16 07:06] LABS: Eosinophils # (auto) 0.01 K/uL (0.00-0.50); Eosinophils % (auto) 0.7 %; Lymphocytes # (auto) 0.47 K/uL (1.20-3.40); Lymphocytes % (auto) 31.5 %; Monocytes # (auto) 0.06 K/uL (0.11-0.59); Neutrophils # (auto) 0.95 K/uL (1.40-6.50); Neutrophils % (auto) 63.8 %
[2025-02-16 07:07] LABS: Dohle Bodies 1+; Echinocytes 1+
--- NOTE | 2025-02-16 12:48 | Pharmacy Report ---
Pharmacy PK ABX Note - Date of Service February 16, 2025 - Assessment and Plan Assessment 89 year old M receiving vancomycin and ceftriaxone for treatment of bacteremia and UTI. * Pertinent microbiologic data includes: Urine culture from 02/12 grew Aj sensitive E. Coli; 1 of 2 blood cultures from 02/12 grew gram (+) cocci in clusters. * Patient with KAREN (SCr 1.26 today) and neutropenia. Day # 1 of vancomycin therapy and day #3 of ceftriaxone Plan Vancomycin * Loading dose: 1250 mg IV x 1 * Maintenance dose: 1000 mg IV every 24 hours * Regimen is predicted to achieve target AUC/ADDY of 400-600 mg/L.hr * Random level ordered for: 02/18 at 1200 Pharmacy will continue to follow and will adjust dose/frequency as necessary. Thank you. Pharmacy has transitioned to AUC monitoring for vancomycin. AUC/ADDY is the preferred PK/PD target and is associated with decreased risk of nephrotoxicity compared to traditional trough targets.
--- NOTE | 2025-02-16 13:59 | Hospitalist Progress Note ---
Date of Service February 16, 2025 Assessment & Plan (1) Encephalopathy: (2) Acute urinary retention: (3) Acute UTI: Plan Acute metabolic encephalopathy Acute urinary retention Acute kidney injury Acute UTI Gram-positive cocci in cluster in blood culture Patient presented to the hospital with altered mental status Found to have urinary retention for which Lopez catheter was placed Urinalysis positive for infection Urine culture growing E. coli Blood culture1 out of 4 blood culture bottles growing gram-negative cocci in clusters Creatinine downtrending with Lopez placement Urology consulted; recommended to maintain Lopez for 1 to 2 weeks; continue on antibiotics for UTI. . Plan to treat for at least 7 days of antibiotics. on vancomycin for positive blood cx; repeat culture in am. 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 Patient refused repeat bone marrow biopsy. Paroxysmal atrial fibrillationcontinue on atenolol, not on anticoagulation Type 2 diabetes mellituscontinue on Lantus, NovoLog hyperlipidemia, not on statin Rx history of DVT as per records chronic anemia, hemoglobin at baseline history colovesical fistula status post surgery past tobacco abuse Full code DVT prophylaxis heparin Time spent evaluating patient, direct bedside care, chart review, placing orders, interpretation of diagnostic studies, discussion with consultants, patient, and family members, as well as other required patient management activities is 50 minutes Please note the above document was generated using voice recognition software. It may contain grammatical, syntax or spelling errors. Any formal questions or concerns about the content, text or information contained within the body of this dictation should be directly addressed to the provider for clarification Admission and Anticipated Discharge Date Admission Date: February 13, 2025 Subjective Patient seen and examined at bedside. He is lying in the bed comfortably; responds appropriately to most of the questions. He denies any pain or discomfort. . No significant events overnight Review of Systems Review of Systems: All systems reviewed & are unremarkable except as noted in Subjective Physical Exam Physical Exam: Constitutional: Awake, oriented to self. Not in distress Respiratory: normal respiratory effort, lungs clear to auscultation, no wheeze, rales, rhonchi. Normal insp/exp effort, no accessory muscle use Cardiovascular: RRR, no murmur, no edema Vessels: no JVD or carotid bruit Chest: normal inspection of chest Abdomen: normal bowel sounds, soft, nontender, no hepatosplenomegaly Musculoskeletal: no cyanosis or clubbing, extremities motor strength 5/5 Skin: no rashes, warm and dry normal turgor Neurologic: PERRL, EOMI, accommodation nl, no face palsy, no dysarthria CN's II- XI intact bilaterally and moves all extremities Results & Data Results & Data Vital Signs (Past 12 Hours) Vital Signs Temp Pulse Pulse Resp BP Pulse Ox O2 Del Method 02/16/25 11:32 36.5 C 59 L 20 109/55 L 98 Room Air 02/16/25 08:20 36.5 C 57 L 20 137/63 99 Room Air 02/16/25 07:44 64 02/16/25 03:39 36.3 C L 62 18 105/52 L 98 Room Air
[2025-02-16] MEDS: VANCOMYCIN HCL 1,000 MG/270 ML BAG IV SCH (17:34)
[2025-02-17 06:46] LABS: BUN Creatinine Ratio 28.2 (10-20); Calcium 7.8 mg/dl (8.6-10.3); Creatinine Clr Calc Pharmacy 42.6 ml/min; Potassium 3.3 mmol/L (3.5-5.1)
--- NOTE | 2025-02-17 08:57 | Hospitalist Progress Note ---
Date of Service February 17, 2025 Assessment & Plan (1) Encephalopathy: (2) Acute urinary retention: (3) Acute UTI: Plan Acute metabolic encephalopathy Acute urinary retention Acute kidney injury Acute UTI Gram-positive cocci in cluster in blood culture Patient presented to the hospital with altered mental status Found to have urinary retention for which Lopez catheter was placed Urinalysis positive for infection Urine culture growing E. coli Blood culture1 out of 4 blood culture bottles growing gram-negative cocci in clusters Creatinine downtrending with Lopez placement Urology consulted; recommended to maintain Lopez for 1 to 2 weeks; continue on antibiotics for UTI. . Plan to treat for at least 7 days of antibiotics. 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 Patient refused repeat bone marrow biopsy. Paroxysmal atrial fibrillationcontinue on atenolol, not on anticoagulation Type 2 diabetes mellituscontinue on Lantus, NovoLog hyperlipidemia, not on statin Rx history of DVT as per records chronic anemia, hemoglobin at baseline history colovesical fistula status post surgery past tobacco abuse Full code DVT prophylaxis heparin Dispositionpatient admitted for multiple medical issues; appears weak; plan to obtain PT OT and possibly rehab placement. Time spent evaluating patient, direct bedside care, chart review, placing orders, interpretation of diagnostic studies, discussion with consultants, patient, and family members, as well as other required patient management activities is 50 minutes Please note the above document was generated using voice recognition software. It may contain grammatical, syntax or spelling errors. Any formal questions or concerns about the content, text or information contained within the body of this dictation should be directly addressed to the provider for clarification Admission and Anticipated Discharge Date Admission Date: February 13, 2025 Subjective Patient seen and examined at bedside. His mentation continues to improve, he reports generalized weakness and fatigue. Review of Systems Review of Systems: All systems reviewed & are unremarkable except as noted in Subjective Physical Exam Physical Exam: Constitutional: Awake, oriented to self. Not in distress Respiratory: normal respiratory effort, lungs clear to auscultation, no wheeze, rales, rhonchi. Normal insp/exp effort, no accessory muscle use Cardiovascular: RRR, no murmur, no edema Vessels: no JVD or carotid bruit Chest: normal inspection of chest Abdomen: normal bowel sounds, soft, nontender, no hepatosplenomegaly Musculoskeletal: no cyanosis or clubbing, extremities motor strength 5/5 Skin: no rashes, warm and dry normal turgor Neurologic: PERRL, EOMI, accommodation nl, no face palsy, no dysarthria CN's II- XI intact bilaterally and moves all extremities Results & Data Results & Data Vital Signs (Past 12 Hours) Vital Signs Temp Pulse Pulse Resp BP Pulse Ox O2 Del Method 02/17/25 08:14 37.2 C 88 17 155/66 H 98 Room Air 02/17/25 07:09 75 02/17/25 04:22 37.1 C 83 18 139/68 97 Room Air 02/16/25 23:59 36.7 C 77 18 151/52 H 98 Room Air 02/16/25 23:00 64
[2025-02-17] MEDS: POTASSIUM CHLORIDE / WTR 10 MEQ/100 ML PLCT IV SCH (09:32)
[2025-02-18] MEDS: POTASSIUM CHLORIDE / WTR 10 MEQ/100 ML PLCT IV SCH (08:50)
[2025-02-18 09:38] LABS: BUN Creatinine Ratio 27.3 (10-20); Calcium 7.9 mg/dl (8.6-10.3); Creatinine Clr Calc Pharmacy 42.6 ml/min; Potassium 3.5 mmol/L (3.5-5.1)
[2025-02-18] MEDS: PNEUMOCOCCAL VACCINE (PCV20) 20-VAL CONJ-DIP CRM/PF 0.5 ML SYR IM ONE (10:19)
[2025-02-18] MEDS: VANCOMYCIN HCL 1,250 MG in SODIUM CHLORIDE 0.9% 250 ML IV SCH (10:24)
[2025-02-18] MEDS: POTASSIUM CHLORIDE CRTAB 20 MEQ TABCR PO STA (10:40)
--- NOTE | 2025-02-18 15:11 | Hospitalist Progress Note ---
Date of Service February 18, 2025 Assessment & Plan (1) Encephalopathy: (2) Acute urinary retention: (3) Acute UTI: Plan Acute metabolic encephalopathy Acute urinary retention Acute kidney injury Acute UTI Gram-positive cocci in cluster in blood culture Patient presented to the hospital with altered mental status Found to have urinary retention for which Lopez catheter was placed Urinalysis positive for infection Urine culture growing E. coli- which is pansensitive Blood culture1 out of 4 blood culture bottles growing gram-negative cocci in clusters Creatinine downtrending with Lopez placement He was placed on intravenous vancomycin and ceftriaxone since admission Repeat blood cultures x 2 came back negative so 1 out of 4 blood cultures grew gram-negative cocci seems to be contaminant Discussed with the pharmacist and IV vancomycin is discontinued Patient remains stable but very weak and lethargic Urology consulted; recommended to maintain Lopez for 1 to 2 weeks; continue on antibiotics for UTI. . Plan to treat for at least 7 days of antibiotics. 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 Patient refused repeat bone marrow biopsy. Paroxysmal atrial fibrillationcontinue on atenolol, not on anticoagulation Type 2 diabetes mellituscontinue on Lantus, NovoLog Hyperlipidemia, not on statin Rx History of DVT as per records Chronic anemia, hemoglobin at baseline History colovesical fistula status post surgery Past tobacco abuse Full code DVT prophylaxis heparin Dispositionpatient admitted for multiple medical issues; appears weak; plan to obtain PT OT and possibly rehab placement. Admission and Anticipated Discharge Date Admission Date: February 13, 2025 Subjective 02/18/2025 The patient was seen and examined in medical telemetry unit He remains very weak and lethargic and does not want to communicate much Denies any significant pain and/or symptoms Review of Systems Review of Systems: Unobtainable due to cognitive status Physical Exam Physical Exam: Lying in bed without any acute distress Constitutional: well developed, well nourished and + ill appearing Eyes: PERRL, conjunctivae normal, anicteric sclerae ENMT: external ear and nose normal, oropharynx normal Neck: trachea midline, no thyromegaly Respiratory: no respiratory distress Auscultation: + diminished lung sounds; no crackles Cardiovascular: Rate/Rhythm: regular rate and regular rhythm; not tachycardic Heart Sounds: normal S1 and normal S2; no murmur Extremities: no edema Gastrointestinal (Abdomen): Inspection/Auscultation: normal bowel sounds; abdomen not distended Percussion/Palpation: abdomen soft; abdomen nontender Musculoskeletal: No acute arthritis involving any of the joint Neurologic: moves all extremities Remain generally very weak and lethargic Lymphatic: no cervical or axillary lymphadenopathy Results & Data Results & Data Vital Signs (Past 12 Hours) Vital Signs Temp Pulse Pulse Resp BP Pulse Ox Pulse Ox 02/18/25 14:38 66 02/18/25 11:24 37.1 C 75 17 150/75 H 98 02/18/25 07:37 37.2 C 75 17 133/65 98 02/18/25 06:59 58 L 02/18/25 06:00 95 02/18/25 03:51 36.5 C 68 18 137/57 L 95 O2 Del Method O2 Del Method 02/18/25 14:38 02/18/25 11:24 Room Air 02/18/25 07:37 Room Air 02/18/25 06:59 02/18/25 06:00 Room Air 02/18/25 03:51 Room Air Laboratory Results BMP 02/18/25 02/18/25 06:06 08:55 Sodium 142 Potassium 3.5 Chloride 111 H Carbon Dioxide 21 BUN 30 H Creatinine 1.09 1.10 Glucose 91 Calcium 7.9 L Medications Administered Current Inpatient Medications Acetaminophen (Acetaminophen 500 Mg Tab) 1,000 mg PO Q8H PRN PRN Reason: Pain or Fever Stop: 03/15/25 08:32 Last Admin: 02/13/25 20:11 Dose: 1,000 mg Aspirin (Aspirin 81 Mg Chew) 81 mg PO DAILY VINOD Stop: 03/17/25 08:59 Last Admin: 02/18/25 08:01 Dose: 81 mg Atenolol (Atenolol 25 Mg Tablet) 25 mg PO QAM VINOD Stop: 03/15/25 08:59 Last Admin: 02/18/25 08:02 Dose: 25 mg Dextrose (Dextrose 50% 50 Ml Syringe) 25 - 50 ml IV UD PRN; Protocol PRN Reason: Hypoglycemia Protocol Stop: 03/15/25 03:32 Fluconazole (Fluconazole 50 Mg Tab) 50 mg PO QAM VINOD Stop: 03/15/25 09:29 Last Admin: 02/18/25 08:02 Dose: 50 mg Glucagon (Glucagon For Inj 1 Mg Vial) 1 mg SQ UD PRN; Protocol PRN Reason: Hypoglycemia Protocol Stop: 03/15/25 03:32 Glucose (Glucose 40% Gel 15 Gm Tube) 15 - 30 gm PO UD PRN; Protocol PRN Reason: Hypoglycemia Protocol Stop: 03/15/25 03:32 Glucose (Glucose 10 Tab/Tube) 4 - 8 tab PO UD PRN; Protocol PRN Reason: Hypoglycemia Protocol Stop: 03/15/25 03:32 Heparin Sodium (Porcine) (Heparin Sod 5,000 Unit/0.5 Ml Vial) 5,000 units SQ Q8 VINOD Stop: 03/15/25 05:59 Last Admin: 02/18/25 14:21 Dose: 5,000 units Hydrocortisone (Hydrocortisone Acetate 25 Mg Supp) 25 mg ME Q8H PRN PRN Reason: Hemorrhoids Stop: 03/16/25 14:31 Last Admin: 02/14/25 15:28 Dose: 25 mg Ceftriaxone Sodium (Rocephin) 2,000 mg in 50 mls @ 100 mls/hr IV Q24H VINOD Stop: 02/24/25 14:29 Last Admin: 02/18/25 14:24 Dose: 100 mls/hr Insulin Aspart (Insulin Aspart Per Unit Charge) 0 units SC ACHS VINOD Stop: 03/16/25 07:29 Last Admin: 02/18/25 13:16 Dose: 6 units Insulin Glargine (Lantus Per Unit Charge) 5 units SQ BID VINOD Stop: 03/15/25 08:59 Last Admin: 02/18/25 08:56 Dose: 5 units Melatonin (Melatonin 3 Mg Tab) 3 mg PO HS PRN PRN Reason: Sleep Stop: 03/15/25 03:01 Last Admin: 02/15/25 21:59 Dose: 3 mg Miscellaneous (Carbohydrates For Hypoglycemia ) 15 - 30 gm PO UD PRN PRN Reason: Hypoglycemia Protocol Stop: 03/15/25 03:32 Terazosin HCl (Terazosin Hcl 1 Mg Cap) 2 mg PO HS VINOD Stop: 03/15/25 20:59 Last Admin: 02/17/25 20:23 Dose: 2 mg Valacyclovir HCl (Valacyclovir Hcl 500 Mg Tablet) 500 mg PO DAILY VINOD Stop: 03/15/25 10:14 Last Admin: 02/18/25 08:02 Dose: 500 mg
[2025-02-19 07:05] LABS: Hematocrit (blood only) 29.3 % (42.0-52.0); Mean Corpuscular Hemoglobin 31.6 pg (25.0-34.0); Mean Corpuscular Hgb Conc 34.1 g/dL (32.0-36.0); Mean Corpuscular Volume 92.7 fL (80.0-100.0); Platelet Count 368 K/uL (130-400); RDW Coefficient of Variation 15.1 % (11.5-14.5); RDW Standard Deviation 51.9 fL (36.4-46.3); Red Blood Count 3.16 M/uL (4.70-6.10)
[2025-02-19 07:27] LABS: BUN Creatinine Ratio 29.5 (10-20); Calcium 7.8 mg/dl (8.6-10.3); Creatinine Clr Calc Pharmacy 41.8 ml/min; Magnesium 1.3 mg/dl (1.7-2.4); Potassium 3.4 mmol/L (3.5-5.1)
[2025-02-19 08:10] LABS: ANC (manual) 1.07 K/uL (1.4-6.5); Blast # (manual) 0.02 K/uL (0-0); Blast Cells % (manual) 1 %; Echinocytes 1+; Lymphocytes % (manual) 35 %; Monocytes # (manual) 0.02 K/uL (0.11-0.59); Monocytes % (manual) 1 %; Neutrophils # (manual) 1.07 K/uL (1.40-6.50); Neutrophils % (manual) 63 %; Polychromasia 1+
[2025-02-19] MEDS: POTASSIUM CHLORIDE CRTAB 20 MEQ TABCR PO STA (09:00)
[2025-02-19] MEDS: MAGNESIUM SULFATE / D5W 1 GM/100 ML BAG IV SCH (09:09)
--- NOTE | 2025-02-19 13:42 | Hospitalist Progress Note ---
Date of Service February 19, 2025 Assessment & Plan (1) Encephalopathy: (2) Acute urinary retention: (3) Acute UTI: Plan Acute metabolic encephalopathy Acute urinary retention Acute kidney injury Acute UTI Gram-positive cocci in cluster in blood culture Patient presented to the hospital with altered mental status Found to have urinary retention for which Lopez catheter was placed Urinalysis positive for infection Urine culture growing E. coli- which is pansensitive Blood culture1 out of 4 blood culture bottles growing gram-negative cocci in clusters Creatinine downtrending with Lopez placement He was placed on intravenous vancomycin and ceftriaxone since admission Repeat blood cultures x 2 came back negative so 1 out of 4 blood cultures grew gram-negative cocci seems to be contaminant Discussed with the pharmacist and IV vancomycin is discontinued Patient remains stable but very weak and lethargic Urology consulted; recommended to maintain Lopez for 1 to 2 weeks; continue on antibiotics for UTI. . Plan to treat for at least 7 days of antibiotics. 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 Patient refused repeat bone marrow biopsy. Paroxysmal atrial fibrillationcontinue on atenolol, not on anticoagulation Rate remains controlled Type 2 diabetes mellituscontinue on Lantus, NovoLog Hyperlipidemia, not on statin Rx History of DVT as per records Chronic anemia, hemoglobin at baseline History colovesical fistula status post surgery Past tobacco abuse Full code DVT prophylaxis heparin Dispositionpatient admitted for multiple medical issues; appears weak; plan to obtain PT OT and possibly rehab placement. Admission and Anticipated Discharge Date Admission Date: February 13, 2025 Subjective 02/18/2025 The patient was seen and examined in medical telemetry unit He remains very weak and lethargic and does not want to communicate much Denies any significant pain and/or symptoms 02/19/2025 The patient was seen and examined in medical telemetry unit He has been much better today and does not have any complaints except weakness Denies any chest pain, palpitation or shortness of breath and does not have any abdominal pain nausea and/or vomiting Did not tolerate PT or OT Review of Systems Review of Systems: Could not be reliably obtained secondary to confusion Physical Exam Physical Exam: Lying in bed without any acute distress Constitutional: well developed, well nourished and + ill appearing Eyes: PERRL, conjunctivae normal, anicteric sclerae ENMT: external ear and nose normal, oropharynx normal Neck: trachea midline, no thyromegaly Respiratory: no respiratory distress Auscultation: + diminished lung sounds; no crackles Cardiovascular: Rate/Rhythm: regular rate and regular rhythm; not tachycardic Heart Sounds: normal S1 and normal S2; no murmur Extremities: no edema Gastrointestinal (Abdomen): Inspection/Auscultation: normal bowel sounds; abdomen not distended Percussion/Palpation: abdomen soft; abdomen nontender Neurologic: moves all extremities Lymphatic: no cervical or axillary lymphadenopathy Results & Data Results & Data Vital Signs (Past 12 Hours) Vital Signs Temp Pulse Pulse Resp BP Pulse Ox O2 Del Method 02/19/25 11:36 36.7 C 70 18 154/71 H 97 Room Air 02/19/25 10:05 Room Air 02/19/25 07:54 75 02/19/25 07:40 36.7 C 67 18 150/63 H 98 Room Air 02/19/25 06:48 121 H 02/19/25 04:06 36.5 C 66 18 136/74 93 Room Air Laboratory Results Short CBC 02/19/25 Range/Units 06:35 WBC 1.70 L (4.8-10.8) K/ul Hgb 10.0 L (14.0-18.0) g/dl Hct 29.3 L (42.0-52.0) % Plt Count 368 (130-400) K/uL BMP 02/19/25 06:35 Sodium 139 Potassium 3.4 L Chloride 109 H Carbon Dioxide 21 BUN 33 H Creatinine 1.12 Glucose 176 H Calcium 7.8 L Medications Administered Current Inpatient Medications Acetaminophen (Acetaminophen 500 Mg Tab) 1,000 mg PO Q8H PRN PRN Reason: Pain or Fever Stop: 03/15/25 08:32 Last Admin: 02/18/25 21:06 Dose: 1,000 mg Aspirin (Aspirin 81 Mg Chew) 81 mg PO DAILY VINOD Stop: 03/17/25 08:59 Last Admin: 02/19/25 08:06 Dose: 81 mg Atenolol (Atenolol 25 Mg Tablet) 25 mg PO QAM [facility] Stop: 03/15/25 08:59 Last Admin: 02/19/25 08:06 Dose: 25 mg Dextrose (Dextrose 50% 50 Ml Syringe) 25 - 50 ml IV UD PRN; Protocol PRN Reason: Hypoglycemia Protocol Stop: 03/15/25 03:32 Fluconazole (Fluconazole 50 Mg Tab) 50 mg PO QAM VINOD Stop: 03/15/25 09:29 Last Admin: 02/19/25 08:06 Dose: 50 mg Glucagon (Glucagon For Inj 1 Mg Vial) 1 mg SQ UD PRN; Protocol PRN Reason: Hypoglycemia Protocol Stop: 03/15/25 03:32 Glucose (Glucose 40% Gel 15 Gm Tube) 15 - 30 gm PO UD PRN; Protocol PRN Reason: Hypoglycemia Protocol Stop: 03/15/25 03:32 Glucose (Glucose 10 Tab/Tube) 4 - 8 tab PO UD PRN; Protocol PRN Reason: Hypoglycemia Protocol Stop: 03/15/25 03:32 Heparin Sodium (Porcine) (Heparin Sod 5,000 Unit/0.5 Ml Vial) 5,000 units SQ Q8 VINOD Stop: 03/15/25 05:59 Last Admin: 02/19/25 06:02 Dose: 5,000 units Hydrocortisone (Hydrocortisone Acetate 25 Mg Supp) [address] Q8H PRN PRN Reason: Hemorrhoids Stop: 03/16/25 14:31 Last Admin: 02/14/25 15:28 Dose: 25 mg Ceftriaxone Sodium (Rocephin) 2,000 mg in 50 mls @ 100 mls/hr IV Q24H VINOD Stop: 02/24/25 14:29 Last Infusion: 02/18/25 15:17 Dose: Infused Insulin Aspart (Insulin Aspart Per Unit Charge) 0 units SC ACHS VINOD Stop: 03/16/25 07:29 Last Admin: 02/19/25 12:31 Dose: 4 units Insulin Glargine (Lantus Per Unit Charge) 5 units SQ BID VINOD Stop: 03/15/25 08:59 Last Admin: 02/19/25 09:02 Dose: 5 units Melatonin (Melatonin 3 Mg Tab) 3 mg PO HS PRN PRN Reason: Sleep Stop: 03/15/25 03:01 Last Admin: 02/18/25 21:06 Dose: 3 mg Miscellaneous (Carbohydrates For Hypoglycemia ) 15 - 30 gm PO UD PRN PRN Reason: Hypoglycemia Protocol Stop: 03/15/25 03:32 Terazosin HCl (Terazosin Hcl 1 Mg Cap) 2 mg PO HS [facility] Stop: 03/15/25 20:59 Last Admin: 02/18/25 21:08 Dose: 2 mg Valacyclovir HCl (Valacyclovir Hcl 500 Mg Tablet) 500 mg PO DAILY [facility] Stop: 03/15/25 10:14 Last Admin: 02/19/25 08:06 Dose: 500 mg
[2025-02-20 06:56] LABS: BUN Creatinine Ratio 32.7 (10-20); Calcium 7.8 mg/dl (8.6-10.3); Magnesium 1.5 mg/dl (1.7-2.4); Potassium 3.5 mmol/L (3.5-5.1)
[2025-02-20] MEDS: POTASSIUM PHOS 3 MMOL/1 ML INFUSION IV STA (08:29)
[2025-02-20] MEDS: POTASSIUM CHLORIDE CRTAB 20 MEQ TABCR PO STA (08:30)
[2025-02-20] MEDS: MAGNESIUM SULFATE / D5W 1 GM/100 ML BAG IV SCH (08:40)
--- NOTE | 2025-02-20 13:55 | Hospitalist Progress Note ---
Date of Service February 20, 2025 Assessment & Plan (1) Encephalopathy: (2) Acute urinary retention: (3) Acute UTI: Plan Acute metabolic encephalopathy Acute urinary retention Acute kidney injury Acute UTI Gram-positive cocci in cluster in blood culture Patient presented to the hospital with altered mental status Found to have urinary retention for which Lopez catheter was placed Urinalysis positive for infection Urine culture growing E. coli- which is pansensitive Blood culture1 out of 4 blood culture bottles growing gram-negative cocci in clusters Creatinine downtrending with Lopez placement He was placed on intravenous vancomycin and ceftriaxone since admission Repeat blood cultures x 2 came back negative so 1 out of 4 blood cultures grew gram-negative cocci seems to be contaminant Discussed with the pharmacist and IV vancomycin is discontinued Patient remains stable but very weak and lethargic Urology consulted; recommended to maintain Lopez for 1 to 2 weeks; continue on antibiotics for UTI. . Plan to treat for at least 7 days of antibiotics. 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 Patient refused repeat bone marrow biopsy. Paroxysmal atrial fibrillationcontinue on atenolol, not on anticoagulation Rate remains controlled Denies any cardiac symptoms and the rate is controlled Type 2 diabetes mellituscontinue on Lantus, NovoLog Hyperlipidemia, not on statin Rx History of DVT as per records Chronic anemia, hemoglobin at baseline History colovesical fistula status post surgery Past tobacco abuse Full code DVT prophylaxis heparin Dispositionpatient admitted for multiple medical issues; appears weak; plan to obtain PT OT and possibly rehab placement. Status post PT evaluation and recommended SNF Admission and Anticipated Discharge Date Admission Date: February 13, 2025 Subjective 02/18/2025 The patient was seen and examined in medical telemetry unit He remains very weak and lethargic and does not want to communicate much Denies any significant pain and/or symptoms 02/19/2025 The patient was seen and examined in medical telemetry unit He has been much better today and does not have any complaints except weakness Denies any chest pain, palpitation or shortness of breath and does not have any abdominal pain nausea and/or vomiting Did not tolerate PT or OT 02/20/2025 The patient was seen and examined in medical telemetry unit He has been feeling better today and communicating normally He wanted to participate in physical therapy Review of Systems Review of Systems: Could not be reliably obtained secondary to confusion Physical Exam Physical Exam: Lying in bed without any acute distress Constitutional: well developed, well nourished and + ill appearing Eyes: PERRL, conjunctivae normal, anicteric sclerae ENMT: external ear and nose normal, oropharynx normal Neck: trachea midline, no thyromegaly Respiratory: no respiratory distress Auscultation: + diminished lung sounds; no crackles Cardiovascular: Rate/Rhythm: regular rate and regular rhythm; not tachycardic Heart Sounds: normal S1 and normal S2; no murmur Extremities: no edema Gastrointestinal (Abdomen): Inspection/Auscultation: normal bowel sounds; abdomen not distended Percussion/Palpation: abdomen soft; abdomen nontender Neurologic: moves all extremities Lymphatic: no cervical or axillary lymphadenopathy Results & Data Results & Data Vital Signs (Past 12 Hours) Vital Signs Temp Pulse Pulse Resp BP Pulse Ox O2 Del Method 02/20/25 11:50 36.4 C L 86 18 130/56 L 95 Room Air 02/20/25 07:47 36.7 C 75 16 152/72 H 99 Room Air 02/20/25 07:11 77 02/20/25 02:55 36.7 C 67 18 161/61 H 98 Room Air Laboratory Results [facility] 02/20/25 05:27 Sodium 138 Potassium 3.5 Chloride 108 H Carbon Dioxide 22 BUN 34 H Creatinine 1.04 Glucose 152 H Calcium 7.8 L Medications Administered Current Inpatient Medications Acetaminophen (Acetaminophen 500 Mg Tab) 1,000 mg PO Q8H PRN PRN Reason: Pain or Fever Stop: 03/15/25 08:32 Last Admin: 02/19/25 21:04 Dose: 1,000 mg Aspirin (Aspirin 81 Mg Chew) 81 mg PO DAILY VINOD Stop: 03/17/25 08:59 Last Admin: 02/20/25 08:31 Dose: 81 mg Atenolol (Atenolol 25 Mg Tablet) 25 mg PO QAM VINOD Stop: 03/15/25 08:59 Last Admin: 02/20/25 08:31 Dose: 25 mg Dextrose (Dextrose 50% 50 Ml Syringe) 25 - 50 ml IV UD PRN; Protocol PRN Reason: Hypoglycemia Protocol Stop: 03/15/25 03:32 Fluconazole (Fluconazole 50 Mg Tab) 50 mg PO QAM VINOD Stop: 03/15/25 09:29 Last Admin: 02/20/25 08:31 Dose: 50 mg Glucagon (Glucagon For Inj 1 Mg Vial) 1 mg SQ UD PRN; Protocol PRN Reason: Hypoglycemia Protocol Stop: 03/15/25 03:32 Glucose (Glucose 40% Gel 15 Gm Tube) 15 - 30 gm PO UD PRN; Protocol PRN Reason: Hypoglycemia Protocol Stop: 03/15/25 03:32 Glucose (Glucose 10 Tab/Tube) 4 - 8 tab PO UD PRN; Protocol PRN Reason: Hypoglycemia Protocol Stop: 03/15/25 03:32 Heparin Sodium (Porcine) (Heparin Sod 5,000 Unit/0.5 Ml Vial) 5,000 units SQ Q8 VINOD Stop: 03/15/25 05:59 Last Admin: 02/20/25 13:41 Dose: 5,000 units Hydrocortisone (Hydrocortisone Acetate 25 Mg Supp) 25 mg [place] Q8H PRN PRN Reason: Hemorrhoids Stop: 03/16/25 14:31 Last Admin: 02/14/25 15:28 Dose: 25 mg Ceftriaxone Sodium (Rocephin) 2,000 mg in 50 mls @ 100 mls/hr IV Q24H VINOD Stop: 02/24/25 14:29 Last Admin: 02/20/25 13:41 Dose: 100 mls/hr Insulin Aspart (Insulin Aspart Per Unit Charge) 0 units SC ACHS VINOD Stop: 03/16/25 07:29 Last Admin: 02/20/25 12:36 Dose: 6 units Insulin Glargine (Lantus Per Unit Charge) 5 units SQ BID VINOD Stop: 03/15/25 08:59 Last Admin: 02/20/25 09:12 Dose: 5 units Melatonin (Melatonin 3 Mg Tab) 3 mg PO HS PRN PRN Reason: Sleep Stop: 03/15/25 03:01 Last Admin: 02/18/25 21:06 Dose: 3 mg Miscellaneous (Carbohydrates For Hypoglycemia ) 15 - 30 gm PO UD PRN PRN Reason: Hypoglycemia Protocol Stop: 03/15/25 03:32 Terazosin HCl (Terazosin Hcl 1 Mg Cap) 2 mg PO HS [facility] Stop: 03/15/25 20:59 Last Admin: 02/19/25 21:05 Dose: 2 mg Valacyclovir HCl (Valacyclovir Hcl 500 Mg Tablet) 500 mg PO DAILY VINOD Stop: 03/15/25 10:14 Last Admin: 02/20/25 08:30 Dose: 500 mg
[2025-02-21 10:47] LABS: Hematocrit (blood only) 29.3 % (42.0-52.0); Hemoglobin 9.7 g/dl (14.0-18.0); Mean Corpuscular Hemoglobin 31.1 pg (25.0-34.0); Mean Corpuscular Hgb Conc 33.1 g/dL (32.0-36.0); Mean Corpuscular Volume 93.9 fL (80.0-100.0); Mean Platelet Volume 8.9 fL (9.4-12.4); Platelet Count 398 K/uL (130-400); RDW Coefficient of Variation 15.2 % (11.5-14.5); RDW Standard Deviation 52.6 fL (36.4-46.3); Red Blood Count 3.12 M/uL (4.70-6.10); White Blood Count 1.08 K/ul (4.8-10.8)
[2025-02-21 11:12] LABS: Polychromasia 1+
[2025-02-21 11:14] LABS: Eosinophils # (auto) 0.02 K/uL (0.00-0.50); Eosinophils % (auto) 1.9 %; Immature Granulocytes # (auto) 0.01 K/uL (0.01-0.20); Immature Granulocytes % (auto) 0.9 %; Lymphocytes # (auto) 0.38 K/uL (1.20-3.40); Lymphocytes % (auto) 35.2 %; Monocytes # (auto) 0.04 K/uL (0.11-0.59); Monocytes % (auto) 3.7 %; Neutrophils # (auto) 0.63 K/uL (1.40-6.50); Neutrophils % (auto) 58.3 %
[2025-02-21 11:52] LABS: Base Excess VBG -0.8 mEq/L; HCO3 VBG 23 mmol/L; Oxygen Saturation VBG < 60.0 %; PCO2 VBG 36 mmHg (38-50); PO2 VBG 33 mmHg; pH VBG 7.42 (7.36-7.41)
--- NOTE | 2025-02-21 12:43 | Infectious Disease Consult ---
Date of Service February 21, 2025 Telehealth Information I performed this visit using a real-time telehealth connection between my location and the patients location ([facility]). After connecting through interactive tele-video, patient was identified by name and date of and/or wristband check.Patient (or authorized healthcare mill representative) was informed that this was a telemedicine visit and it was being conducted confidentially over secure lines. My office door was closed and no on e else was present in the room with me.Patient (or authorized healthcare mill representative) provided consent to proceed with the visit, expressed an understanding of privacy and security of the telemedicine visit, and gave permission to have a hospital mill representative in the room in order to assist with the visit and to conduct portions of the visit, as needed. I informed the patient (or authorized healthcare mill representative) that I reviewed their record and presented the opportunity for them to ask any questions regarding the visit today. The patient agreed to participate. Assessment & Plan (1) Encephalopathy: Plan: If the patient's confusion could be attributed to a UTI, then it should have imp roved with ceftriaxone. Even though the primary team's notes mention that the patient's AMS was improving, the patient does not seem to be improved per my examination today (granted I have only seen the patient one time and perhaps his examination is different for his other providers). Consider MRI brain, LP and Neurology consultation. If LP is pursued, page ID so that we can guide empiric BROADCAST DIRECTOR OPERATIONS-dosed ABX treatment. The CONS does not appear to be the cause of the patient's presentation and I do not think that he needs treatment for it. Of note, the patient has cytopenias and blasts on his CBC. Consult with Hematology re: the significance and any further workup that is needed. History of Present Illness History of Present Illness The patient was admitted for confusion. Urine culture grew Ecoli and blood cultures grew CONS (Staphylococcus pettenkoferi) in one bottle. At the time of my examination, the patient was not able to provide any history or respond to verbal commands. Allergies Allergy/AdvReac Type Severity Reaction Status Date / Time Penicillins Allergy Intermediate HIVES Verified 10/10/24 17:05 Sulfa (Sulfonamide Allergy Intermediate RASH Verified 10/10/24 17:05 Antibiotics) tree and shrub pollen Allergy Intermediate CONGESTION Verified 10/10/24 17:05 Home Medications Medication Instructions Recorded Confirmed Type atenolol 25 mg tablet 25 mg PO QAM #30 tabs 01/27/23 02/13/25 Rx azelastine 137 mcg (0.1 %) nasal 2 spray intranasal BID PRN 01/27/23 02/13/25 Rx spray Congestion #30 mL valacyclovir 1 gram tablet 1,000 mg PO BID #60 tabs 01/27/23 02/13/25 Rx finasteride 5 mg tablet (Proscar) 5 mg PO QAM PRN NEEDED PER 07/04/23 02/13/25 History PT/GMG terazosin 2 mg capsule 2 mg PO HS 07/04/23 02/13/25 History aspirin 81 mg tablet,delayed 81 mg PO QAM #30 tabs 07/05/23 02/13/25 Rx release flash glucose scanning reader #1 ea 07/07/23 10/10/24 Rx (FreeStyle Clementine 2 [place]) diphenoxylate-atropine 2.5 1 tab PO BID PRN Severe Diarrhea 06/29/24 02/13/25 History mg-0.025 mg tablet hydroxyzine HCl 25 mg tablet 25 mg PO Q6 PRN Itching 06/29/24 02/13/25 History ketoconazole 2 % shampoo 1 applic topical DIRECTED 06/29/24 02/13/25 History fluconazole 100 mg tablet 100 mg PO QAM #30 tabs 07/03/24 02/13/25 Rx (Diflucan) levofloxacin 500 mg tablet 500 mg PO DAILY@1100 #30 tabs 07/03/24 02/13/25 Rx pen needle, diabetic 32 gauge x #400 ea 07/07/24 10/10/24 Rx 5/32" (BD Prachi 2nd Gen Pen Needle) FreeStyle Clementine 2 Sensor (flash #6 ea 07/31/24 10/10/24 Rx glucose sensor) insulin glargine 100 unit/mL (3 20 unit (0.2 mL) subcut DAILY #15 10/03/24 02/13/25 Rx mL) subcutaneous pen (Lantus mL Solostar U-100 Insulin) insulin aspart U-100 100 unit/mL 15 unit (0.15 mL) subcut TID #15 mL 10/10/24 02/13/25 Rx (3 mL) subcutaneous pen (Novolog FlexPen U-100 Insulin aspart) clobetasol 0.05 % topical ointment 1 applic topical BID 02/13/25 02/13/25 History lidocaine 4 % topical patch 1 patch topical BID PRN Pain 02/13/25 02/13/25 History melatonin 3 mg tablet 3 mg PO HS PRN Sleep 02/13/25 02/13/25 History Patient History Medical History PMR (polymyalgia rheumatica) Postoperative urethral stricture DVT (deep venous thrombosis) Actinic keratosis Urinary retention UTI (lower urinary tract infection) UTI (lower urinary tract infection) Left leg DVT H/O prostatitis Diverticulitis Diverticulitis (07/23/14) Surgical History History of surgery Stomach, skin History of back surgery History of knee surgery S/P TURP Family History Other Family history non-contributory Heart disease No family history of adverse response to anesthesia No family history of bleeding disorder Denies family history of Ovarian cancer Prostate cancer Myocardial infarction Breast cancer Colorectal cancer Social History Smoking Status: Unknown if ever smoked Second Hand Exposure: No; Do You Dip or Chew Tobacco: No; Hx Alcohol Use: No (Unknown) Hx Substance Use: No Preferred Language: Norwegian Communication Ability: Effective Visual Impairment: No Limitations Hearing Ability: Hard of Hearing Pharmacy Data Analyst Required: No Beliefs That Will Affect Care: None marital status: Current Living Situation: Spouse Current Living Situation Comment: Single family home current occupational status: retired How many Children do You have: 3 Feels Safe at Home: Yes Childhood Exposure to Second-Hand Smoke: No Diet: regular Dental Care, Regularly: Yes Physical Activity Frequency: 3-4 Times per Week Seatbelt Use: always Sunscreen Use: No Assistive Devices: Cane and Walker Review of Systems Unable to obtain Physical Exam Vitals: see EMR Exam limited due to constraints of telemedicine and patient's inability to participate Gen/Constitutional: appears at stated age, NAD, nontoxic Head: AT, NC Eyes: unable to assess sclera/conjunctiva ENT: MMM, trachea midline Card: appears to be well-perfused Resp: not tachypneic, nml effort, symmetric chest rise, no accessory muscle use Derm: no visible diaphoresis, no visible rash, no visible jaundice Neuro: seems to be alert to self, does not follow commands, mumbles one-word answers Results & Data Vital Signs (Past 12 Hours) Vital Signs Temp Pulse Pulse Pulse Resp BP Pulse Ox 02/21/25 09:22 02/21/25 07:19 36.5 C 60 15 114/52 L 97 02/21/25 07:00 66 02/21/25 06:00 02/21/25 03:35 37.5 C 61 18 145/64 H 96 Pulse Ox O2 Del Method O2 Del Method 02/21/25 09:22 Room Air 02/21/25 07:19 Room Air 02/21/25 07:00 02/21/25 06:00 96 Room Air 02/21/25 03:35 Room Air Laboratory Results SEE EMR Diagnostic Findings [address], [place] [address] / Director: Tonya Weiss M.D. Clinical Laboratory Report Name: THIAGO KAUFMAN Acct: [id number] Status: ADM IN : 1935 [facility] [place] Date: 02/13/25 Age: 89 Sex: M Dis Date: Loc: [address] Rm/Bed: [facility] Spec: [id number] Collected: 02/12/25 Received: 02/12/[address]: Arash Zuniga M.D. Source: Urine,Clean Catch OV Order: Ordered: Urine Culture Procedure Result Verified Site Urine Culture Final 02/14/25 Organism 1 Escherichia coli [place] Count >100,000 CFU/ml Sens Sensitivities to Follow E coli RX M.I.C. --- --------- Amikacin S <=16 Amox/Clav S <=8/4 Ampicillin S <=8 Amp/Sul S <=4/2 Cefazolin S <=2 Cefepime S <=2 Cefotaxime S <=2 Cefoxitin S <=8 Ceftriaxone S <=1 Cefuroxime S <=4 Ciprofloxacin S <=0.25 Ertapenem S <=0.5 Gentamicin S <=2 Levofloxacin S <=0.5 Meropenem S <=1 Nitrofurantoin S <=32 Tobramycin S <=2 Trimeth/Sulfa S <=0.5/9.5 Pip/Tazo S <=8 S = SENSITIVE I = INTERMEDIATE R = RESISTANT Name: THIAGO KAUFMAN : 1935 PAGE 1 Printed: 02/21/25 125 END OF REPORT
--- NOTE | 2025-02-21 13:06 | Hospitalist Progress Note ---
Date of Service February 21, 2025 Assessment & Plan (1) Encephalopathy: (2) Acute urinary retention: (3) Acute UTI: Plan Acute metabolic encephalopathy Acute urinary retention Acute kidney injury Acute UTI Gram-positive cocci in cluster in blood culture Patient presented to the hospital with altered mental status Found to have urinary retention for which Lopez catheter was placed Urinalysis positive for infection Urine culture growing E. coli- which is pansensitive Blood culture1 out of 4 blood culture bottles growing gram-negative cocci in clusters Creatinine downtrending with Lopez placement He was placed on intravenous vancomycin and ceftriaxone since admission Repeat blood cultures x 2 came back negative so 1 out of 4 blood cultures grew gram-negative cocci seems to be contaminant Discussed with the pharmacist and IV vancomycin is discontinued Patient remains stable but very weak and lethargic Urology consulted; recommended to maintain Lopez for 1 to 2 weeks; continue on antibiotics for UTI. . Plan to treat for at least 7 days of antibiotics. Acute encephalopathy seems to be improving Delirium precautions He seems to be at his baseline and remains weak and lethargic Will continue the course of antibiotic for UTI Has been participating in physical therapy- will need placement 02/21 patient still remains drowsy Around noon time, but more awake and alert, had breakfast this morning per RN Repeat CT head: No acute process VBG: No hypercapnia, ammonia level normal continue treatment for urinary tract infection in the setting of neutropenia Continue PT OT evaluation Hopefully patient must also improve continue to improve ID consulted for antibiotic recommendations given neutropenia will discuss with family regarding patient's baseline mental status as he remains drowsy Other significant medical conditions remained stable and are as follow:: Neutropeniachronic, 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 -- remains neutropenic, anemic CBC appears stable overall Patient refused repeat bone marrow biopsy. Paroxysmal atrial fibrillationcontinue on atenolol, not on anticoagulation Rate remains controlled Denies any cardiac symptoms and the rate is controlled Type 2 diabetes mellituscontinue on Lantus, NovoLog Hyperlipidemia, not on statin Rx History of DVT as per records Chronic anemia, hemoglobin at baseline History colovesical fistula status post surgery Past tobacco abuse Full code DVT prophylaxis heparin Dispositionpatient admitted for multiple medical issues; appears weak; plan to obtain PT OT and possibly rehab placement. Status post PT evaluation and recommended SNF Admission and Anticipated Discharge Date Admission Date: February 13, 2025 Subjective ff up for Encephalopathy, UTI, etc. seen resting in bed, sleeping, easily awakened but patient is drowsy States he feels fine overall Denies pain No other symptoms Discussed with RN, this morning the patient was sitting up, having breakfast, conversant No other new symptoms Review of Systems Review of Systems: all noted and negative except for above Results & Data Results & Data Vital Signs (Past 12 Hours) Vital Signs Temp Pulse Pulse Pulse Resp BP Pulse Ox 02/21/25 09:22 02/21/25 07:19 36.5 C 60 15 114/52 L 97 02/21/25 07:00 66 02/21/25 06:00 02/21/25 03:35 37.5 C 61 18 145/64 H 96 Pulse Ox O2 Del Method O2 Del Method 02/21/25 09:22 Room Air 02/21/25 07:19 Room Air 02/21/25 07:00 02/21/25 06:00 96 Room Air 02/21/25 03:35 Room Air all noted and reviewed including below
--- NOTE | 2025-02-21 15:12 | CT Scan Report ---
CT head/brain wo con CLINICAL HISTORY: 89 years-old Male with lethargy. Acutely altered mental status TECHNIQUE: Multiple axial CT images of the head were obtained without contrast. A dose lowering tech nique was utilized adhering to the principles of ALARA. CT DOSE: 625.8 mGy.cm COMPARISON: 02/12/2025 FINDINGS: No acute intracranial hemorrhage, midline shift, intracranial mass, hydrocephalus, territorial ischem ia or abnormal extra-axial collection. Involutional changes with chronic microvascular ischemic disea se. There is unchanged dilation of the ventricles, likely on ex vacuo basis. Cerebrovascular calcific ations. The calvarium is intact. Prior bilateral lens repair. The paranasal sinuses, mastoid air cells, and m iddle ear cavities are clear. IMPRESSION: No acute intracranial abnormality. ACT 112: Negative or not required by law. The above report was generated using voice recognition software. It may contain grammatical, syntax o r spelling errors. Electronically signed by: Pardeep Ovalle M.D. 02/21/2025 3:10 PM
--- NOTE | 2025-02-21 21:17 | Magnetic Resonance Report ---
Exam(s): MRI HEAD Without Contrast EXAM: MR Head Without Intravenous Contrast CLINICAL HISTORY: Reason for exam: altered mental status. TECHNIQUE: Magnetic resonance images of the head/brain without intravenous contrast in multiple planes. COMPARISON: Prior head CT from February 21, 2025 and brain MRI from July 04, 2023.. FINDINGS: Brain: Advanced nonspecific white matter changes. No mass. No hemorrhage. No acute infarct. The flow voids at the base of the brain are intact. Ventricles: Moderate ventriculomegaly. Bones/joints: Unremarkable. No acute fracture. Sinuses: Unremarkable as visualized. No acute sinusitis. Mastoid air cells: Unremarkable as visualized. No mastoid effusion. Orbits: Bilateral lens replacements. IMPRESSION: No evidence of acute intracranial pathology. Electronically signed by: Nataliya Mejia MD 02/21/25 21:16 PM
[2025-02-22 10:25] LABS: Hematocrit (blood only) 30.5 % (42.0-52.0); Hemoglobin 10.2 g/dl (14.0-18.0); Mean Corpuscular Hemoglobin 31.7 pg (25.0-34.0); Mean Corpuscular Hgb Conc 33.4 g/dL (32.0-36.0); Mean Corpuscular Volume 94.7 fL (80.0-100.0); Mean Platelet Volume 8.9 fL (9.4-12.4); Platelet Count 400 K/uL (130-400); RDW Coefficient of Variation 14.9 % (11.5-14.5); RDW Standard Deviation 52.3 fL (36.4-46.3); Red Blood Count 3.22 M/uL (4.70-6.10); White Blood Count 1.03 K/ul (4.8-10.8)
[2025-02-22 10:45] LABS: BUN Creatinine Ratio 36.5 (10-20); Calcium 7.4 mg/dl (8.6-10.3); Creatinine Clr Calc Pharmacy 48.8 ml/min
[2025-02-22 10:55] LABS: Eosinophils # (auto) 0.02 K/uL (0.00-0.50); Eosinophils % (auto) 1.9 %; Immature Granulocytes # (auto) 0.03 K/uL (0.01-0.20); Immature Granulocytes % (auto) 2.9 %; Lymphocytes # (auto) 0.46 K/uL (1.20-3.40); Lymphocytes % (auto) 44.7 %; Monocytes # (auto) 0.04 K/uL (0.11-0.59); Monocytes % (auto) 3.9 %; Neutrophils # (auto) 0.48 K/uL (1.40-6.50); Neutrophils % (auto) 46.6 %
--- NOTE | 2025-02-22 13:16 | Neurology Consultation ---
Date of Consultation February 22, 2025 Assessment & Plan (1) Encephalopathy: Suspect metabolic encephalopathy secondary to infection coupled with hospital delirium Continue to utilize hospital delirium protocols Agree with LP if concern of INVENTORY CONTROL ANALYST involvement Agree with continue antimicrobial treatment/coverage for INVENTORY CONTROL ANALYST involvement if there is concern Recommend MRI with and without contrast of cervical spine if able to tolerate Continue frequent neurological assessments Obtain stat CT brain without contrast for any acute neurological decline Continue to monitor/control blood pressure & blood glucose Continue to monitor telemetry closely Ok from neurology perspective for VTE prophylaxis PT/OT/SLT to eval and treat as tolerated Telehealth Consultation Telehealth Information Telehealth Information: I performed this visit using a real-time telehealth connection between my location and the patients location ([facility]). After connecting through interactive tele-video, patient was identified by name and date of and/or wristband check.Patient (or authorized healthcare inside account representative) was informed that this was a telemedicine visit and it was being conducted confidentially over secure lines. My office door was closed and no one else was present in the room with me.Patient (or authorized healthcare inside account representative) provided consent to proceed with the visit, expressed an underst anding of privacy and security of the telemedicine visit, and gave permission to have a hospital inside account representative in the room in order to assist with the visit and to conduct portions of the visit, as needed. I informed the patient (or authorized healthcare inside account representative) that I reviewed their record and presented the opportunity for them to ask any questions regarding the visit today. The patient agreed to participate. History of Present Illness Reason for Consultation: Encephalopathy Requesting Physician: Dr Garibay Attending Physician: Darrell Garibay MD History of Present Illness 89yo male admitted to hospital on 02/13 with concern of renal failure and UTI. Has been receiving antimicrobial treatment. ID following, neurology consulted as it appears there was concern for possible INVENTORY CONTROL ANALYST involvement in changes in mentation. Notably documentation appears to depict some improvement in wakefulness and orientation. Agree with continued close monitoring and if i ndicated antimicrobial treatment to cover INVENTORY CONTROL ANALYST involvement. Difficult to accurately assess for nuchal rigidity as it was reported patient was complaining of neck pain. No notable high fevers. Recommend imaging of cervical spine and agree with LP to eval for INVENTORY CONTROL ANALYST involvement if there is concern. Allergies Allergy/AdvReac Type Severity Reaction Status Date / Time Penicillins Allergy Intermediate HIVES Verified 10/10/24 17:05 Sulfa (Sulfonamide Allergy Intermediate RASH Verified 10/10/24 17:05 Antibiotics) tree and shrub pollen Allergy Intermediate CONGESTION Verified 10/10/24 17:05 Home Medications Medication Instructions Recorded Confirmed Type atenolol 25 mg tablet 25 mg PO QAM #30 tabs 01/27/23 02/13/25 Rx azelastine 137 mcg (0.1 %) nasal 2 spray intranasal BID PRN 01/27/23 02/13/25 Rx spray Congestion #30 mL valacyclovir 1 gram tablet 1,000 mg PO BID #60 tabs 01/27/23 02/13/25 Rx finasteride 5 mg tablet (Proscar) 5 mg PO QAM PRN NEEDED PER 07/04/23 02/13/25 History PT/GMG terazosin 2 mg capsule 2 mg PO HS 07/04/23 02/13/25 History aspirin 81 mg tablet,delayed 81 mg PO QAM #30 tabs 07/05/23 02/13/25 Rx release flash glucose scanning reader #1 ea 07/07/23 10/10/24 Rx (FreeStyle Clementine 2 Osprey) diphenoxylate-atropine 2.5 1 tab PO BID PRN Severe Diarrhea 06/29/24 02/13/25 History mg-0.025 mg tablet hydroxyzine HCl 25 mg tablet 25 mg PO Q6 PRN Itching 06/29/24 02/13/25 History ketoconazole 2 % shampoo 1 applic topical DIRECTED 06/29/24 02/13/25 History fluconazole 100 mg tablet 100 mg PO QAM #30 tabs 07/03/24 02/13/25 Rx (Diflucan) levofloxacin 500 mg tablet 500 mg PO DAILY@1100 #30 tabs 07/03/24 02/13/25 Rx pen needle, diabetic 32 gauge x #400 ea 07/07/24 10/10/24 Rx 5/32" (BD Prachi 2nd Gen Pen Needle) FreeStyle Clementine 2 Sensor (flash #6 ea 07/31/24 10/10/24 Rx glucose sensor) insulin glargine 100 unit/mL (3 20 unit (0.2 mL) subcut DAILY #15 10/03/24 02/13/25 Rx mL) subcutaneous pen (Lantus mL Solostar U-100 Insulin) insulin aspart U-100 100 unit/mL 15 unit (0.15 mL) subcut TID #15 mL 10/10/24 02/13/25 Rx (3 mL) subcutaneous pen (Novolog FlexPen U-100 Insulin aspart) clobetasol 0.05 % topical ointment 1 applic topical BID 02/13/25 02/13/25 History lidocaine 4 % topical patch 1 patch topical BID PRN Pain 02/13/25 02/13/25 History melatonin 3 mg tablet 3 mg PO HS PRN Sleep 02/13/25 02/13/25 History Patient History Medical History PMR (polymyalgia rheumatica) Postoperative urethral stricture DVT (deep venous thrombosis) Actinic keratosis Urinary retention UTI (lower urinary tract infection) UTI (lower urinary tract infection) Left leg DVT H/O prostatitis Diverticulitis Diverticulitis (07/23/14) Surgical History History of surgery Stomach, skin History of back surgery History of knee surgery S/P TURP Family History Other Family history non-contributory Heart disease No family history of adverse response to anesthesia No family history of bleeding disorder Denies family history of Ovarian cancer Prostate cancer Myocardial infarction Breast cancer Colorectal cancer Social History Smoking Status: Unknown if ever smoked Second Hand Exposure: No; Do You Dip or Chew Tobacco: No; Hx Alcohol Use: No (Unknown) Hx Substance Use: No Preferred Language: Pashto Communication Ability: Effective Visual Impairment: No Limitations Hearing Ability: Hard of Hearing Semaphore Operator Required: No Beliefs That Will Affect Care: None marital status: Current Living Situation: Spouse Current Living Situation Comment: Single family home current occupational status: retired How many Children do You have: 3 Feels Safe at Home: Yes Childhood Exposure to Second-Hand Smoke: No Diet: regular Dental Care, Regularly: Yes Physical Activity Frequency: 3-4 Times per Week Seatbelt Use: always Sunscreen Use: No Assistive Devices: Cane and Walker Physical Exam Neurological Examination: Mental Status: Awake appears in no distress Will name few objects and state his name Cannot answer more in depth orientation questions Able to follow simple commands CN testing: I: Deferred II: Difficult to reliably assess III/IV/: No evidence of gaze preference, hippus, nystagmus or roving eye movements V: Facial sensation is difficult to reliably assess VII: Facial movements appear without evidence of asymmetry VIII: Significant hypoacusis IX/X: Palate is unable to be accurately assessed via telemedicine XI: Shoulder shrug is difficult to reliably assess XII: Tongue without evidence of biting Motor exam: Readily moves BUE spontaneously & antigravity Will wiggle toes/move feet on command Sensory: Sensation is difficult to reliably assess Coordination: Deferred Reflexes: Deferred Gait: Deferred Results & Data Vital Signs (Past 12 Hours) Vital Signs Temp Pulse Pulse Resp BP Pulse Ox Pulse Ox 02/22/25 10:17 02/22/25 07:54 37.0 C 58 L 17 141/61 H 97 02/22/25 06:00 95 02/22/25 05:34 62 02/22/25 03:34 36.6 C 52 L 18 127/59 L 95 O2 Del Method O2 Del Method 02/22/25 10:17 Room Air 02/22/25 07:54 Room Air 02/22/25 06:00 Room Air 02/22/25 05:34 02/22/25 03:34 Room Air Laboratory Results Abnormal lab results 02/21/25 02/21/25 02/22/25 Range/Units 16:55 20:14 08:07 WBC (4.8-10.8) K/ul RBC (4.70-6.10) M/uL Hgb (14.0-18.0) g/dl Hct (42.0-52.0) % RDW Std Deviation (36.4-46.3) fL RDW Coeff of Nam (11.5-14.5) % MPV (9.4-12.4) fL Neut # (Auto) (1.40-6.50) K/uL Lymph # (Auto) (1.20-3.40) K/uL Cobb # (Auto) (0.11-0.59) K/uL Chloride (98-107) mmol/L BUN (6-23) mg/dl BUN/Creatinine Ratio (10-20) Glucose (70-99(Fasting)) mg/dl POC Glucose 126 H 196 H 129 H (70-99) mg/dl Calcium (8.6-10.3) mg/dl 02/22/25 02/22/25 Range/Units 10:05 12:24 WBC 1.03 L (4.8-10.8) K/ul RBC 3.22 L (4.70-6.10) M/uL Hgb 10.2 L (14.0-18.0) g/dl Hct 30.5 L (42.0-52.0) % RDW Std Deviation 52.3 H (36.4-46.3) fL RDW Coeff of Nam 14.9 H (11.5-14.5) % MPV 8.9 L (9.4-12.4) fL Neut # (Auto) 0.48 L* (1.40-6.50) K/uL Lymph # (Auto) 0.46 L (1.20-3.40) K/uL Cobb # (Auto) 0.04 L (0.11-0.59) K/uL Chloride 108 H (98-107) mmol/L BUN 35 H (6-23) mg/dl BUN/Creatinine Ratio 36.5 H (10-20) Glucose 236 H (70-99(Fasting)) mg/dl POC Glucose 228 H (70-99) mg/dl Calcium 7.4 L (8.6-10.3) mg/dl Diagnostic Findings Head CT 02/21/25 11:12 CT head/brain wo con CLINICAL HISTORY: 89 years-old Male with lethargy. Acutely altered mental status TECHNIQUE: Multiple axial CT images of the head were obtained without contrast. A dose lowering technique was utilized adhering to the principles of ALARA. CT DOSE: 625.8 mGy.cm COMPARISON: 02/12/2025 FINDINGS: No acute intracranial hemorrhage, midline shift, intracranial mass, hydrocephalus, territorial ischemia or abnormal extra-axial collection. Involutional changes with chronic microvascular ischemic disease. There is unchanged dilation of the ventricles, likely on ex vacuo basis. Cerebrovascular calcifications. The calvarium is intact. Prior bilateral lens repair. The paranasal sinuses, mastoid air cells, and middle ear cavities are clear. IMPRESSION: No acute intracranial abnormality. ACT 112: Negative or not required by law. The above report was generated using voice recognition software. It may contain grammatical, syntax or spelling errors. Electronically signed by: Pardeep Ovalle M.D. 02/21/2025 3:10 PM Brain MRI 02/21/25 15:44 Exam(s): MRI HEAD Without Contrast EXAM: MR Head Without Intravenous Contrast CLINICAL HISTORY: Reason for exam: altered mental status. TECHNIQUE: Magnetic resonance images of the head/brain without intravenous contrast in multiple planes. COMPARISON: Prior head CT from February 21, 2025 and brain MRI from July 04, 2023.. FINDINGS: Brain: Advanced nonspecific white matter changes. No mass. No hemorrhage. No acute infarct. The flow voids at the base of the brain are intact. Ventricles: Moderate ventriculomegaly. Bones/joints: Unremarkable. No acute fracture. Sinuses: Unremarkable as visualized. No acute sinusitis. Mastoid air cells: Unremarkable as visualized. No mastoid effusion. Orbits: Bilateral lens replacements. IMPRESSION: No evidence of acute intracranial pathology. Electronically signed by: Nataliya Mejia MD 02/21/25 21:16 PM Medications Administered Home Medications Medication Instructions Recorded Confirmed Last Taken atenolol 25 mg tablet 25 mg PO QAM #30 tabs 01/27/23 02/13/25 Unknown azelastine 137 mcg (0.1 %) nasal 2 spray intranasal BID PRN 01/27/23 02/13/25 Unknown spray Congestion #30 mL valacyclovir 1 gram tablet 1,000 mg PO BID #60 tabs 01/27/23 02/13/25 Unknown finasteride 5 mg tablet (Proscar) 5 mg PO QAM PRN NEEDED PER 07/04/23 02/13/25 Unknown PT/GMG terazosin 2 mg capsule 2 mg PO HS 07/04/23 02/13/25 Unknown aspirin 81 mg tablet,delayed 81 mg PO QAM #30 tabs 07/05/23 02/13/25 Unknown release flash glucose scanning reader #1 ea 07/07/23 10/10/24 Unknown (FreeStyle Clementine 2 Osprey) diphenoxylate-atropine 2.5 1 tab PO BID PRN Severe Diarrhea 06/29/24 02/13/25 Unknown mg-0.025 mg tablet hydroxyzine HCl 25 mg tablet 25 mg PO Q6 PRN Itching 06/29/24 02/13/25 Unknown ketoconazole 2 % shampoo 1 applic topical DIRECTED 06/29/24 02/13/25 Unknown fluconazole 100 mg tablet 100 mg PO QAM #30 tabs 07/03/24 02/13/25 Unknown (Diflucan) levofloxacin 500 mg tablet 500 mg PO DAILY@1100 #30 tabs 07/03/24 02/13/25 Unknown pen needle, diabetic 32 gauge x #400 ea 07/07/24 10/10/24 Unknown 532" (BD Prachi 2nd Gen Pen Needle) FreeStyle Clementine 2 Sensor (flash #6 ea 07/31/24 10/10/24 Unknown glucose sensor) insulin glargine 100 unit/mL (3 20 unit (0.2 mL) subcut DAILY #15 10/03/24 02/13/25 Unknown mL) subcutaneous pen (Lantus mL Solostar U-100 Insulin) insulin aspart U-100 100 unit/mL 15 unit (0.15 mL) subcut TID #15 mL 10/10/24 02/13/25 Unknown (3 mL) subcutaneous pen (Novolog FlexPen U-100 Insulin aspart) clobetasol 0.05 % topical ointment 1 applic topical BID 02/13/25 02/13/25 Unknow n lidocaine 4 % topical patch 1 patch topical BID PRN Pain 02/13/25 02/13/25 Unknown melatonin 3 mg tablet 3 mg PO HS PRN Sleep 02/13/25 02/13/25 Unknown Active Medications Generic Name Dose Route Start Last Admin Trade Name Freq PRN Reason Stop Dose Admin Acetaminophen 1,000 mg 02/13/25 08:33 02/19/25 21:04 Acetaminophen 500 Mg Tab PO 03/15/25 08:32 1,000 mg Q8H PRN Administration Pain or Fever Aspirin 81 mg 02/15/25 09:00 02/21/25 09:00 Aspirin 81 Mg Chew PO 03/17/25 08:59 81 mg DAILY VINOD Administration Atenolol 25 mg 02/13/25 09:00 02/22/25 09:13 Atenolol 25 Mg Tablet PO 03/15/25 08:59 25 mg QAM VINOD Administration Fluconazole 50 mg 02/13/25 09:30 02/22/25 09:12 Fluconazole 50 Mg Tab PO 03/15/25 09:29 50 mg QAM VINOD Administration Heparin Sodium (Porcine) 5,000 units 02/13/25 06:00 02/21/25 13:00 Heparin Sod 5,000 Unit/0.5 Ml Vial SQ 03/15/25 05:59 5,000 units Q8 VINOD Administration Hydrocortisone 25 mg 02/14/25 14:32 02/14/25 15:28 Hydrocortisone Acetate 25 Mg Supp IL 03/16/25 14:31 25 mg Q8H PRN Administration Hemorrhoids Ceftriaxone Sodium 2,000 mg in 50 mls @ 100 mls/hr 02/14/25 14:30 02/21/25 13:32 Rocephin IV 02/24/25 14:29 Infused Q24H VINOD Infusion Insulin Aspart 0 units 02/14/25 07:30 02/22/25 09:12 Insulin Aspart Per Unit Charge SC 03/16/25 07:29 4 units ACHS VINOD Administration Insulin Glargine 5 units 02/13/25 09:00 02/22/25 09:12 Lantus Per Unit Charge SQ 03/15/25 08:59 5 units BID VINOD Administration Melatonin 3 mg 02/13/25 03:02 02/18/25 21:06 Melatonin 3 Mg Tab PO 03/15/25 03:01 3 mg HS PRN Administration Sleep Terazosin HCl 2 mg 02/13/25 21:00 02/21/25 20:44 Terazosin Hcl 1 Mg Cap PO 03/15/25 20:59 2 mg HS VINOD Administration Valacyclovir HCl 500 mg 02/13/25 10:15 02/22/25 09:13 Valacyclovir Hcl 500 Mg Tablet PO 03/15/25 10:14 500 mg DAILY VINOD Administration
--- NOTE | 2025-02-22 14:31 | Fluoroscopy Report ---
Attempted lumbar puncture under fluoroscopy INDICATION: Altered mental status PROCEDURE: Procedure and risks were explained. Informed consent was obtained over the phone from his . A final timeout was completed. The patient was placed in the left lateral decubitus position on the fluoroscopic exam table. Spot fluoroscopy was utilized to identify a safe lumbar puncture site. Unfortunately, the patient did not follow verbal command and wanted out of the room. The procedure wa s stopped. Total fluoroscopy time 10 seconds. DAP is 13.57 mGy. IMPRESSION: Attempted lumbar puncture as discussed. If further CSF analysis is required, the patient will need an esthesia to safely proceed. Performed, dictated, and signed by Wai Yousif PA-C; to be co-signed by Dr. Nick Ruby. Electronically signed by: Nick Ruby M.D. 02/22/2025 3:13 PM
[2025-02-22] MEDS: ACETAMINOPHEN 500 MG TAB PO SCH (15:25)
[2025-02-22] MEDS: ACETAMINOPHEN 1,000 MG/100 ML VIAL IV SCH (15:32)
[2025-02-22] MEDS: LIDOCAINE 5% 1 PATCH TD STA (15:32)
[2025-02-22] MEDS: SODIUM CHLORIDE 0.9% 1,000 ML IV SCH (15:32)
[2025-02-22] MEDS ORDERED: VANCOMYCIN CONSULT ACTIVE PRN (16:51)
[2025-02-22] MEDS ORDERED: VANCOMYCIN HCL 1,000 MG in SODIUM CHLORIDE 0.9% 250 ML IV SCH (17:00)
--- NOTE | 2025-02-22 17:00 | Hospitalist Progress Note ---
Date of Service February 22, 2025 Assessment & Plan (1) Encephalopathy: (2) Acute urinary retention: (3) Acute UTI: Plan Acute metabolic encephalopathy Acute urinary retention Acute kidney injury Acute UTI Gram-positive cocci in cluster in blood culture Patient presented to the hospital with altered mental status Found to have urinary retention for which Lopez catheter was placed Urinalysis positive for infection Urine culture growing E. coli- which is pansensitive Blood culture1 out of 4 blood culture bottles growing gram-negative cocci in clusters Creatinine downtrending with Lopez placement He was placed on intravenous vancomycin and ceftriaxone since admission Repeat blood cultures x 2 came back negative so 1 out of 4 blood cultures grew gram-negative cocci seems to be contaminant Discussed with the pharmacist and IV vancomycin is discontinued Patient remains stable but very weak and lethargic Urology consulted; recommended to maintain Lopez for 1 to 2 weeks; continue on antibiotics for UTI. . Plan to treat for at least 7 days of antibiotics. Acute encephalopathy seems to be improving Delirium precautions He seems to be at his baseline and remains weak and lethargic Will continue the course of antibiotic for UTI Has been participating in physical therapy- will need placement 02/21 patient still remains drowsy Around noon time, but more awake and alert, had breakfast this morning per RN Repeat CT head: No acute process VBG: No hypercapnia, ammonia level normal continue treatment for urinary tract infection in the setting of neutropenia Continue PT OT evaluation Hopefully patient must also improve continue to improve ID consulted for antibiotic recommendations given neutropenia will discuss with family regarding patient's baseline mental status as he remains drowsy 02/22 Still drowsy brain MRI: No acute process Attempted LP today but unsuccessful as patient was not able to tolerate Discussed with infectious disease service Will start empiric treatment of possible meningitis with vancomycin, meropenem, acyclovir Cervical spine MRI ordered Will need LP under anesthesia, will coordinate with IR service Other significant medical conditions remained stable and are as follow:: Neutropeniachronic, 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 -- remains neutropenic, anemic CBC appears stable overall Patient refused repeat bone marrow biopsy. Paroxysmal atrial fibrillationcontinue on atenolol, not on anticoagulation Rate remains controlled Denies any cardiac symptoms and the rate is controlled Type 2 diabetes mellituscontinue on Lantus, NovoLog Hyperlipidemia, not on statin Rx History of DVT as per records Chronic anemia, hemoglobin at baseline History colovesical fistula status post surgery Past tobacco abuse Full code DVT prophylaxis heparin Dispositionpatient admitted for multiple medical issues; appears weak; plan to obtain PT OT and possibly rehab placement. Status post PT evaluation and recommended SNF Admission and Anticipated Discharge Date Admission Date: February 13, 2025 Subjective follow-up for altered mental status, UTI, etc. Seen resting in bed sleeping but easily awakened Appears to be a little bit more awake today, answering simple questions more Per staff, patient was more awake and alert this morning , had breakfast, staff assisted with shaving his . Patient's Yin at the bedside States patient is alert more awake but still drowsy, mostly sleeping in between short periods of wakefulness Patient states he has a mild posterior neck pain, but no headache No photophobia Denies any other symptoms Review of Systems Review of Systems: all noted and negative except for above Physical Exam Physical Exam: General- oriented x 2 drowsy,, not in distress, speaks in sentences with no effort or accessory muscle use Eyes- anicteric Neck- no JVD (+) moderate rigidity Lungs- clear breath sounds bilaterally, no rales/wheezes Heart- normal rate, regular rhythm; no murmurs Abdomen- normal bowel sounds, nondistended, soft, nontender Lopez catheter in place: yellow urine Extremities- no pretibial edema, no calf tenderness Neuro- alert, oriented x 3; no gross focal neurologic deficits Skin- warm & dry Results & Data Results & Data Vital Signs (Past 12 Hours) Vital Signs Temp Pulse Pulse Resp BP Pulse Ox Pulse Ox 02/22/25 16:16 36.4 C L 63 18 158/70 H 98 02/22/25 13:03 58 L 02/22/25 10:17 02/22/25 07:54 37.0 C 58 L 17 141/61 H 97 02/22/25 06:00 95 02/22/25 05:34 62 O2 Del Method O2 Del Method 02/22/25 16:16 Room Air 02/22/25 13:03 02/22/25 10:17 Room Air 02/22/25 07:54 Room Air 02/22/25 06:00 Room Air 02/22/25 05:34 all noted and reviewed including below
[2025-02-22] MEDS: VANCOMYCIN HCL 1,500 MG in SODIUM CHLORIDE 0.9% 500 ML IV ONE (17:32)
[2025-02-22] MEDS: MEROPENEM 2,000 MG in SODIUM CHLORIDE 0.9% 60 ML IV SCH (18:03)
[2025-02-22] MEDS: ACYCLOVIR SOD 700 MG in DEXTROSE 5% 100 ML IV SCH (18:40)
--- NOTE | 2025-02-22 18:43 | Pharmacy Report ---
Pharmacy PK ABX Note - Date of Service February 22, 2025 - Assessment and Plan Assessment 89 year old M admitted on 02/13 for encephalopathy. Previously treated with ceftriaxone for UTI and a few days of vancomycin IV for CONS growing in 1 of 4 BC bottles, thought to be a contaminant. 02/21 - ID consulted for antibiotic recommendations in the setting neutropenia. 02/22 - LP attempted but patient unable to tolerate. Empiric antibiotics started for coverage of meningitis per ID. Antibiotic course Vancomycin 02/16 - 02/18 Ceftriaxone 02/14 - 02/22 Fluconazole - continued from outpatient Valacyclovir - continue from outpatient, now on hold Plan Vancomycin * 1500 mg IV every 24 hours * Regimen is predicted to achieve target AUC/ADDY of 400-600 mg/L.hr * Dose based on vanco data from earlier this admission. Aggressive regimen selected due to indication of possible meningitis (aim for AUC >400 within the first 24-48 hours). Will obtain early level to role out drug accumulation. * Random level ordered for 02/24 Pharmacy will continue to follow and will adjust dose/frequency as necessary. Thank you. Pharmacy has transitioned to AUC monitoring for vancomycin. AUC/ADDY is the preferred PK/PD target and is associated with decreased risk of nephrotoxicity compared to traditional trough targets.
--- NOTE | 2025-02-23 03:17 | Magnetic Resonance Report ---
Exam(s): MRI C SPINE EXAM: MR Cervical Spine Without Intravenous Contrast CLINICAL HISTORY: Reason for exam: neck pain. TECHNIQUE: Magnetic resonance images of the cervical spine without intravenous contrast in multiple planes. COMPARISON: Prior CT angiogram of the neck from July 04, 2023. FINDINGS: Vertebrae: There are 7 cervical type vertebral bodies with a normal cervical lordosis. There is a mild grade 1 retrolisthesis of C2 on C3 measuring 2 mm, and retrolisthesis of C4 on C5 measuring 2 mm. Otherwise, there is normal vertebral body height and alignment. The bone marrow signal heterogeneous with moderate bone marrow edema and erosive endplate changes at C5-6. There is increased disc signal at C5-6. No acute fracture. Spinal cord: The cord is normal size, shape and signal characteristics. The craniocervical junction is normal without evidence of Chiari malformation. Soft tissues: The cervical flow voids are intact. 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 No definite evidence of epidural abscess in this noncontrast study. Recommend postcontrast imaging for further evaluation. Communications: Verify Receipt Electronically signed by: Nataliya Mejia MD 02/23/25 03:16 AM
[2025-02-23 07:27] LABS: Hematocrit (blood only) 30.6 % (42.0-52.0); Hemoglobin 10.1 g/dl (14.0-18.0); Mean Corpuscular Hemoglobin 30.9 pg (25.0-34.0); Mean Corpuscular Volume 93.6 fL (80.0-100.0); Mean Platelet Volume 8.9 fL (9.4-12.4); Platelet Count 377 K/uL (130-400); RDW Coefficient of Variation 14.5 % (11.5-14.5); RDW Standard Deviation 48.5 fL (36.4-46.3); Red Blood Count 3.27 M/uL (4.70-6.10)
[2025-02-23 07:54] LABS: BUN Creatinine Ratio 37.6 (10-20); Calcium 7.1 mg/dl (8.6-10.3); Creatinine Clr Calc Pharmacy 55.1 ml/min; Potassium 3.4 mmol/L (3.5-5.1)
[2025-02-23 08:12] LABS: White Blood Count 0.93 K/ul (4.8-10.8)
[2025-02-23 08:24] LABS: Echinocytes 1+; Eosinophils # (auto) 0.03 K/uL (0.00-0.50); Eosinophils % (auto) 3.2 %; Immature Granulocytes # (auto) 0.01 K/uL (0.01-0.20); Immature Granulocytes % (auto) 1.1 %; Lymphocytes # (auto) 0.45 K/uL (1.20-3.40); Lymphocytes % (auto) 48.4 %; Monocytes # (auto) 0.04 K/uL (0.11-0.59); Monocytes % (auto) 4.3 %; Polychromasia 1+
[2025-02-23] MEDS: LIDOCAINE 5% 1 PATCH TD SCH (10:14)
[2025-02-23] MEDS: VANCOMYCIN HCL 1,500 MG in SODIUM CHLORIDE 0.9% 500 ML IV SCH (12:32)
[2025-02-23] MEDS: POTASSIUM CHLORIDE / WTR 10 MEQ/100 ML PLCT IV SCH (12:32)
--- NOTE | 2025-02-23 17:07 | Hospitalist Progress Note ---
Date of Service February 23, 2025 Assessment & Plan (1) Encephalopathy: (2) Acute urinary retention: (3) Acute UTI: Plan Acute metabolic encephalopathy Acute urinary retention Acute kidney injury Acute UTI Gram-positive cocci in cluster in blood culture possible acute meningitis in the setting of neutropenia Possible cervical osteomyelitis Patient presented to the hospital with altered mental status Found to have urinary retention for which Lopez catheter was placed Urinalysis positive for infection Urine culture growing E. coli- which is pansensitive Blood culture1 out of 4 blood culture bottles growing gram-negative cocci in clusters Creatinine downtrending with Lopez placement He was placed on intravenous vancomycin and ceftriaxone since admission Repeat blood cultures x 2 came back negative so 1 out of 4 blood cultures grew gram-negative cocci seems to be contaminant Discussed with the pharmacist and IV vancomycin is discontinued Patient remains stable but very weak and lethargic Urology consulted; recommended to maintain Lopez for 1 to 2 weeks; continue on antibiotics for UTI. . Plan to treat for at least 7 days of antibiotics. Acute encephalopathy seems to be improving Delirium precautions He seems to be at his baseline and remains weak and lethargic Will continue the course of antibiotic for UTI Has been participating in physical therapy- will need placement 02/21 patient still remains drowsy Around noon time, but more awake and alert, had breakfast this morning per RN Repeat CT head: No acute process VBG: No hypercapnia, ammonia level normal continue treatment for urinary tract infection in the setting of neutropenia Continue PT OT evaluation Hopefully patient must also improve continue to improve ID consulted for antibiotic recommendations given neutropenia will discuss with family regarding patient's baseline mental status as he remains drowsy 02/22 Still drowsy brain MRI: No acute process Attempted LP today but unsuccessful as patient was not able to tolerate Discussed with infectious disease service Will start empiric treatment of possible meningitis with vancomycin, meropenem, acyclovir Cervical spine MRI ordered Will need LP under anesthesia, will coordinate with IR service 02/23 clinically patient seems to have improved significantly compared to yesterday More awake and alert most of the day, more conversant, oriented Denies headache, neck pain today, negative nuchal rigidity Cervical spine MRI revealing possible cervical osteomyelitis C5-C6, no abscess noted Continue empiric regimen for possible acute meningitis in the setting of neutropenia Continue IV vancomycin, meropenem, acyclovir orthopedic spine service consulted for possible cervical osteomyelitis discussed with infectious disease service Symptomatic bradycardia, 1st degree AV block History of paroxysmal atrial fibrillation EKG showing sinus bradycardia with first-degree AV block, heart rate high 40s Was intermittently symptomatic but improved rather quickly-blood pressure remained stable, mental status also improved Discontinue atenolol Administer atropine if patient is hemodynamically unstable, with altered mental status Update echocardiogram Will consult cardiology service Other significant medical conditions remained stable and are as follow:: Neutropeniachronic, 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 -- remains neutropenic, anemic CBC appears stable overall Patient refused repeat bone marrow biopsy. Paroxysmal atrial fibrillationDiscontinue atenolol secondary to symptomatic bradycardia not on anticoagulation Type 2 diabetes mellituscontinue on Lantus, NovoLog Hyperlipidemia, not on statin Rx History of DVT as per records Chronic anemia, hemoglobin at baseline History colovesical fistula status post surgery Past tobacco abuse Full code DVT prophylaxis heparin Dispositionpatient admitted for multiple medical issues; appears weak; plan to obtain PT OT and possibly rehab placement. Status post PT evaluation and recommended SNF Admission and Anticipated Discharge Date Admission Date: February 13, 2025 Subjective follow-up for encephalopathy, UTI, etc. Seen in the morning around 9 AM, patient awake and alert, conversant, oriented x 2 Having breakfast States he feels fine Denies headache, neck pain, fevers or chills No shortness of breath, chest pain, palpitations, abdominal pain, nausea No other new symptoms Around 11:30 AM, code purple called Patient was having heart rates in the 40s per ekg monitor, when patient was checked, he was minimally responsive with apneic episode Patient seen at the bedside immediately, patient was already responding to questions Heart rate fluctuating between low 40s to low 60s, blood pressure at 1 point was systolic 90s, which improved to 110s atropine prepared but was not administered as patient was responding to questions, blood pressure remained systolic above 100s, and heart rate was mostly in the 50s Transferred to PCU for closer monitoring Patient's updated over the phone Review of Systems Review of Systems: all noted and negative except for above Physical Exam Physical Exam: General- oriented x 2, not in distress, speaks in sentences with no effort or accessory muscle use Eyes- anicteric Neck- no JVD; No nuchal rigidity Lungs- clear breath sounds bilaterally, no rales/wheezes Heart- normal rate, regular rhythm; no murmurs Abdomen- normal bowel sounds, nondistended, soft, nontender Extremities- no pretibial edema, no calf tenderness Neuro- alert, oriented x 2; no gross focal neurologic deficits Skin- warm & dry Results & Data Results & Data Vital Signs (Past 12 Hours) Vital Signs Temp Pulse Pulse Resp BP BP Pulse Ox 02/23/25 16:40 55 L 16 155/68 H 97 02/23/25 14:00 41 L 02/23/25 14:00 02/23/25 12:15 36.8 C 47 L 18 145/58 H 97 02/23/25 07:12 36.6 C 60 18 143/51 H 97 02/23/25 07:00 50 L O2 Del Method 02/23/25 16:40 Room Air 02/23/25 14:00 02/23/25 14:00 Room Air 02/23/25 12:15 Room Air 02/23/25 07:12 Room Air 02/23/25 07:00 all noted and reviewed including below
[2025-02-23] MEDS: MAGNESIUM SULFATE / D5W 1 GM/100 ML BAG IV SCH (18:38)
[2025-02-23] MEDS: CARBOHYDRATES FOR HYPOGLYCEMIA PO PRN (20:00)
[2025-02-23] MEDS: MAGNESIUM OXIDE 400 MG TAB PO SCH (20:46)
--- NOTE | 2025-02-23 23:25 | Electrocardiogram Report ---
Test Reason : Blood Pressure : */* mmHG Vent. Rate : 49 BPM Atrial Rate : 49 BPM P-R Int : 242 ms QRS Dur : 142 ms QT Int : 494 ms P-R-T Axes : 89 68 37 degrees QTcB Int : 446 ms Sinus bradycardia with 1st degree A-V block Right bundle branch block Abnormal ECG When compared with ECG of 12-Feb-2025 21:37, NH interval has increased Vent. rate has decreased by 33 bpm Confirmed by Severiano Shay ([id number]) on 02/23/2025 11:25:26 PM Referred By: REFERRED SELF Confirmed By: Severiano Shay
[2025-02-24 07:50] LABS: Albumin Globulin Ratio 1.1 (0.9-2); Albumin Level 2.1 gm/dl (3.4-5.0); BUN Creatinine Ratio 31.2 (10-20); Bilirubin,Total 0.6 mg/dl (0.2-1.0); Calcium 6.8 mg/dl (8.6-10.3); Creatinine Clr Calc Pharmacy 60.8 ml/min; Magnesium 1.6 mg/dl (1.7-2.4); Phosphorus 2.3 mg/dl (2.5-4.9); Potassium 3.8 mmol/L (3.5-5.1); Total Protein 4.1 gm/dl (6.0-8.3)
--- NOTE | 2025-02-24 08:07 | Orthopedic Consultation ---
Date of Consultation February 24, 2025 Assessment & Plan (1) Cervical discitis: MRI of the cervical spine does demonstrate some area of concern particular in the body of C5. There is however no evidence of epidural abscess or neural compression. He is already being managed with antibiotics. There will be no surgical management at this time. May be worth considering updated cervical MRI in the next 6 to 8 weeks. History of Present Illness Reason for Consultation: Possible cervical discitis Attending Physician: Darrell Garibay MD History of Present Illness This is an 89-year-old male admitted to the hospital with multiple medical issues. Imaging cervical spine demonstrates possible discitis bone marrow edema C5-C6. This morning he denies any significant neck pain. Denies any arm symptoms. Allergies Allergy/AdvReac Type Severity Reaction Status Date / Time Penicillins Allergy Intermediate HIVES Verified 10/10/24 17:05 Sulfa (Sulfonamide Allergy Intermediate RASH Verified 10/10/24 17:05 Antibiotics) tree and shrub pollen Allergy Intermediate CONGESTION Verified 10/10/24 17:05 Home Medications Medication Instructions Recorded Confirmed Type atenolol 25 mg tablet 25 mg PO QAM #30 tabs 01/27/23 02/13/25 Rx azelastine 137 mcg (0.1 %) nasal 2 spray intranasal BID PRN 01/27/23 02/13/25 Rx spray Congestion #30 mL valacyclovir 1 gram tablet 1,000 mg PO BID #60 tabs 01/27/23 02/13/25 Rx finasteride 5 mg tablet (Proscar) 5 mg PO QAM PRN NEEDED PER 07/04/23 02/13/25 History PT/GMG terazosin 2 mg capsule 2 mg PO HS 07/04/23 02/13/25 History aspirin 81 mg tablet,delayed 81 mg PO QAM #30 tabs 07/05/23 02/13/25 Rx release flash glucose scanning reader #1 ea 07/07/23 10/10/24 Rx (FreeStyle Clementine 2 [place]) diphenoxylate-atropine 2.5 1 tab PO BID PRN Severe Diarrhea 06/29/24 02/13/25 History mg-0.025 mg tablet hydroxyzine HCl 25 mg tablet 25 mg PO Q6 PRN Itching 06/29/24 02/13/25 History ketoconazole 2 % shampoo 1 applic topical DIRECTED 06/29/24 02/13/25 History fluconazole 100 mg tablet 100 mg PO QAM #30 tabs 07/03/24 02/13/25 Rx (Diflucan) levofloxacin 500 mg tablet 500 mg PO DAILY@1100 #30 tabs 07/03/24 02/13/25 Rx pen needle, diabetic 32 gauge x #400 ea 07/07/24 10/10/24 Rx 5/32" (BD Prachi 2nd Gen Pen Needle) FreeStyle Clementine 2 Sensor (flash #6 ea 07/31/24 10/10/24 Rx glucose sensor) insulin glargine 100 unit/mL (3 20 unit (0.2 mL) subcut DAILY #15 10/03/24 02/13/25 Rx mL) subcutaneous pen (Lantus mL Solostar U-100 Insulin) insulin aspart U-100 100 unit/mL 15 unit (0.15 mL) subcut TID #15 mL 10/10/24 02/13/25 Rx (3 mL) subcutaneous pen (Novolog FlexPen U-100 Insulin aspart) clobetasol 0.05 % topical ointment 1 applic topical BID 02/13/25 02/13/25 History lidocaine 4 % topical patch 1 patch topical BID PRN Pain 02/13/25 02/13/25 History melatonin 3 mg tablet 3 mg PO HS PRN Sleep 02/13/25 02/13/25 History Patient History Medical History PMR (polymyalgia rheumatica) Postoperative urethral stricture DVT (deep venous thrombosis) Actinic keratosis Urinary retention UTI (lower urinary tract infection) UTI (lower urinary tract infection) Left leg DVT H/O prostatitis Diverticulitis Diverticulitis (07/23/14) Surgical History History of surgery Stomach, skin History of back surgery History of knee surgery S/P TURP Family History Other Family history non-contributory Heart disease No family history of adverse response to anesthesia No family history of bleeding disorder Denies family history of Ovarian cancer Prostate cancer Myocardial infarction Breast cancer Colorectal cancer Social History (Reviewed 02/13/25 @ 05:58 by NHUNG Salmeron Smoking Status: Unknown if ever smoked Second Hand Exposure: No; Do You Dip or Chew Tobacco: No; Hx Alcohol Use: No (Unknown) Hx Substance Use: No Preferred Language: Nepali Communication Ability: Effective Visual Impairment: No Limitations Hearing Ability: Hard of Hearing Crm Consultant Required: No Beliefs That Will Affect Care: Spiritual marital status: Current Living Situation: Spouse Current Living Situation Comment: Single family home current occupational status: retired How many Children do You have: 3 Feels Safe at Home: Yes Childhood Exposure to Second-Hand Smoke: No Diet: regular Dental Care, Regularly: Yes Physical Activity Frequency: 3-4 Times per Week Seatbelt Use: always Sunscreen Use: No Assistive Devices: Cane and Walker Physical Exam Physical Exam: On exam the patient is alert. He is cooperative. Has full range of motion of the cervical spine without gross antalgia. Has reasonable strength testing upper extremities. Results & Data Vital Signs (Past 12 Hours) Vital Signs Temp Pulse Pulse Resp BP Pulse Ox O2 Del Method 02/24/25 07:21 36.3 C L 90 16 147/56 H 99 Room Air 02/24/25 03:21 36.3 C L 59 L 16 129/59 L 95 Room Air 02/23/25 23:16 36.4 C L 70 16 97/56 L 96 Room Air 02/23/25 22:45 61 02/23/25 22:00 Room Air
[2025-02-24] MEDS: LANTUS PER UNIT CHARGE SQ SCH (09:17)
--- NOTE | 2025-02-24 13:18 | Pharmacy Report ---
Pharmacy PK ABX Note - Date of Service February 24, 2025 - Assessment and Plan Assessment 02/24: * Day #3 of Vancomycin, Meropenem, and Acyclovir for empiric treatment of meningitis. ID on board. * Vanc level today was therapeutic. SCr near baseline. 02/22: 89 year old M admitted on 02/13 for encephalopathy. Previously treated with ceftriaxone for UTI and a few days of vancomycin IV for CONS growing in 1 of 4 BC bottles, thought to be a contaminant. 02/21 - ID consulted for antibiotic recommendations in the setting neutropenia. 02/22 - LP attempted but patient unable to tolerate. Empiric antibiotics started for coverage of meningitis per ID. Antibiotic course Vancomycin 02/16 - 02/18 Ceftriaxone 02/14 - 02/22 Fluconazole - continued from outpatient Valacyclovir - continue from outpatient, now on hold Plan Vancomycin * Current regimen: 1500 mg IV every 24 hours * Random level obtained 02/24/25 resulted as 12.5 mcg/mL. This is predicted to achieve target AUC/ADDY of 400-600 mg/L.hr * Predicted AUC at steady state: 524 mg/L.hr * Continue 1500 mg IV every 24 hours * Repeat random level ordered for: 02/27/25 Meropenem * Increased to 2000 mg IV every 8 hours today for improved renal function Acyclovir * Increased to 10 mg/kg IV every 8 hours today for improved renal function Pharmacy will continue to follow and will adjust dose/frequency as necessary. Thank you. Pharmacy has transitioned to AUC monitoring for vancomycin. AUC/ADDY is the preferred PK/PD target and is associated with decreased risk of nephrotoxicity compared to traditional trough targets.
[2025-02-24] MEDS: VANCOMYCIN LEVEL ONE (14:28)
--- NOTE | 2025-02-24 15:07 | Hospitalist Progress Note ---
Date of Service February 24, 2025 Assessment & Plan (1) Encephalopathy: (2) Acute urinary retention: (3) Acute UTI: Plan Acute metabolic encephalopathy Acute urinary retention Acute kidney injury Acute UTI Gram-positive cocci in cluster in blood culture possible acute meningitis in the setting of neutropenia Possible cervical osteomyelitis Patient presented to the hospital with altered mental status Found to have urinary retention for which Lopez catheter was placed Urinalysis positive for infection Urine culture growing E. coli- which is pansensitive Blood culture1 out of 4 blood culture bottles growing gram-negative cocci in clusters Creatinine downtrending with Lopez placement He was placed on intravenous vancomycin and ceftriaxone since admission Repeat blood cultures x 2 came back negative so 1 out of 4 blood cultures grew gram-negative cocci seems to be contaminant Discussed with the pharmacist and IV vancomycin is discontinued Patient remains stable but very weak and lethargic Urology consulted; recommended to maintain Lopez for 1 to 2 weeks; continue on antibiotics for UTI. . Plan to treat for at least 7 days of antibiotics. Acute encephalopathy seems to be improving Delirium precautions He seems to be at his baseline and remains weak and lethargic Will continue the course of antibiotic for UTI Has been participating in physical therapy- will need placement 02/21 patient still remains drowsy Around noon time, but more awake and alert, had breakfast this morning per RN Repeat CT head: No acute process VBG: No hypercapnia, ammonia level normal continue treatment for urinary tract infection in the setting of neutropenia Continue PT OT evaluation Hopefully patient must also improve continue to improve ID consulted for antibiotic recommendations given neutropenia will discuss with family regarding patient's baseline mental status as he remains drowsy 02/22 Still drowsy brain MRI: No acute process Attempted LP today but unsuccessful as patient was not able to tolerate Discussed with infectious disease service Will start empiric treatment of possible meningitis with vancomycin, meropenem, acyclovir Cervical spine MRI ordered Will need LP under anesthesia, will coordinate with IR service 02/23 clinically patient seems to have improved significantly compared to yesterday More awake and alert most of the day, more conversant, oriented Denies headache, neck pain today, negative nuchal rigidity Cervical spine MRI revealing possible cervical osteomyelitis C5-C6, no abscess noted Continue empiric regimen for possible acute meningitis in the setting of neutropenia Continue IV vancomycin, meropenem, acyclovir orthopedic spine service consulted for possible cervical osteomyelitis discussed with infectious disease service 02/24 Patient clinically improving overall Mostly awake, alert, conversant, still somewhat confused Denies headache or neck pain, afebrile Lumbar puncture unable to be performed as patient was uncooperative, LP under anesthesia held in light of symptomatic bradycardic episode Evaluated by orthopedic spine service, recommend continue IV antibiotics for now, no surgery, patient recommendations Continue with IV vancomycin, meropenem, acyclovir ID service on board as well Symptomatic bradycardia, 1st degree AV block History of paroxysmal atrial fibrillation EKG showing sinus bradycardia with first-degree AV block, heart rate high 40s Was intermittently symptomatic but improved rather quickly-blood pressure remained stable, mental status also improved Discontinue atenolol Administer atropine if patient is hemodynamically unstable, with altered mental status 5/3 No recurrence of symptomatic bradycardia Heart rate mostly above 50s Continue to monitor off atenolol Other significant medical conditions remained stable and are as follow:: Neutropeniachronic, 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 -- remains neutropenic, anemic CBC appears stable overall Patient refused repeat bone marrow biopsy. Paroxysmal atrial fibrillationDiscontinue atenolol secondary to symptomatic bradycardia not on anticoagulation Type 2 diabetes mellituscontinue on Lantus, NovoLog Hyperlipidemia, not on statin Rx History of DVT as per records Chronic anemia, hemoglobin at baseline History colovesical fistula status post surgery Past tobacco abuse Full code DVT prophylaxis heparin Discussed plan of care with patient's Agree with current medical management Clarified CODE STATUS She transition patient to condition:-No intubation, no cardiac defibrillation, proceed with medications only Admission and Anticipated Discharge Date Admission Date: February 13, 2025 Subjective Patient seen resting in bed, sitting up, awake and alert, oriented x 1-2, conversant States he feels fine overall Denies headache, neck pain, chest pain, shortness of breath, abdominal pain No other new symptoms Review of Systems Review of Systems: all noted and negative except for above Physical Exam Physical Exam: General- oriented x 1-2, not in distress, speaks in sentences with no effort or accessory muscle use Eyes- anicteric Neck- no JVD No neck rigidity Lungs- clear breath sounds bilaterally, no rales/wheezes Heart- normal rate, regular rhythm; no murmurs Abdomen- normal bowel sounds, nondistended, soft, nontender Extremities- no pretibial edema, no calf tenderness Neuro- alert, oriented x 1-2; no gross focal neurologic deficits Skin- warm & dry Results & Data Results & Data Vital Signs (Past 12 Hours) Vital Signs Temp Pulse Pulse Resp BP BP Pulse Ox 02/24/25 10:57 36.4 C L 59 L 20 144/62 H 98 02/24/25 08:22 62 02/24/25 08:22 02/24/25 07:21 36.3 C L 90 16 147/56 H 99 02/24/25 03:21 36.3 C L 59 L 16 129/59 L 95 O2 Del Method 02/24/25 10:57 Room Air 02/24/25 08:22 02/24/25 08:22 Room Air 02/24/25 07:21 Room Air 02/24/25 03:21 Room Air all noted and reviewed including below
[2025-02-24] MEDS: MEROPENEM 2,000 MG in SODIUM CHLORIDE 0.9% 60 ML IV SCH (17:27)
[2025-02-24] MEDS: MAGNESIUM SULFATE / D5W 1 GM/100 ML BAG IV ONE (17:30)
[2025-02-24] MEDS: POT PHOSPHATE MONOBASIC W/ SOD TAB PO SCH (18:19)
[2025-02-24] MEDS: ACYCLOVIR SOD 700 MG in DEXTROSE 5% 100 ML IV SCH (18:38)
[2025-02-25 06:37] LABS: Albumin Level 2.2 gm/dl (3.4-5.0); Bilirubin,Total 0.5 mg/dl (0.2-1.0); Calcium 6.8 mg/dl (8.6-10.3); Magnesium 1.7 mg/dl (1.7-2.4); Potassium 3.6 mmol/L (3.5-5.1)
[2025-02-25 06:43] LABS: Albumin Globulin Ratio 1.1 (0.9-2); Creatinine Clr Calc Pharmacy 60.8 ml/min; Phosphorus 2.9 mg/dl (2.5-4.9); Total Protein 4.2 gm/dl (6.0-8.3)
[2025-02-25 09:35] LABS: Hematocrit (blood only) 31.6 % (42.0-52.0); Hemoglobin 10.5 g/dl (14.0-18.0); Mean Corpuscular Hgb Conc 33.2 g/dL (32.0-36.0); Mean Corpuscular Volume 93.2 fL (80.0-100.0); Mean Platelet Volume 8.7 fL (9.4-12.4); Platelet Count 392 K/uL (130-400); RDW Coefficient of Variation 14.6 % (11.5-14.5); RDW Standard Deviation 49.6 fL (36.4-46.3); Red Blood Count 3.39 M/uL (4.70-6.10)
[2025-02-25 10:00] LABS: Eosinophils # (auto) 0.04 K/uL (0.00-0.50); Eosinophils % (auto) 5.7 %; Lymphocytes # (auto) 0.36 K/uL (1.20-3.40); Lymphocytes % (auto) 51.4 %; Monocytes # (auto) 0.02 K/uL (0.11-0.59); Monocytes % (auto) 2.9 %; Neutrophils # (auto) 0.28 K/uL (1.40-6.50); Polychromasia 2+
--- NOTE | 2025-02-25 14:42 | Hospitalist Progress Note ---
Date of Service February 25, 2025 Assessment & Plan (1) Encephalopathy: (2) Acute urinary retention: (3) Acute UTI: Plan Acute metabolic encephalopathy Acute urinary retention Acute kidney injury Acute UTI Gram-positive cocci in cluster in blood culture possible acute meningitis in the setting of neutropenia Possible cervical osteomyelitis Patient presented to the hospital with altered mental status Found to have urinary retention for which Lopez catheter was placed Urinalysis positive for infection Urine culture growing E. coli- which is pansensitive Blood culture1 out of 4 blood culture bottles growing gram-negative cocci in clusters Creatinine downtrending with Lopez placement He was placed on intravenous vancomycin and ceftriaxone since admission Repeat blood cultures x 2 came back negative so 1 out of 4 blood cultures grew gram-negative cocci seems to be contaminant Discussed with the pharmacist and IV vancomycin is discontinued Patient remains stable but very weak and lethargic Urology consulted; recommended to maintain Lopez for 1 to 2 weeks; continue on antibiotics for UTI. . Plan to treat for at least 7 days of antibiotics. Acute encephalopathy seems to be improving Delirium precautions He seems to be at his baseline and remains weak and lethargic Will continue the course of antibiotic for UTI Has been participating in physical therapy- will need placement 02/21 patient still remains drowsy Around noon time, but more awake and alert, had breakfast this morning per RN Repeat CT head: No acute process VBG: No hypercapnia, ammonia level normal continue treatment for urinary tract infection in the setting of neutropenia Continue PT OT evaluation Hopefully patient must also improve continue to improve ID consulted for antibiotic recommendations given neutropenia will discuss with family regarding patient's baseline mental status as he remains drowsy 02/22 Still drowsy brain MRI: No acute process Attempted LP today but unsuccessful as patient was not able to tolerate Discussed with infectious disease service Will start empiric treatment of possible meningitis with vancomycin, meropenem, acyclovir Cervical spine MRI ordered Will need LP under anesthesia, will coordinate with IR service 02/23 clinically patient seems to have improved significantly compared to yesterday More awake and alert most of the day, more conversant, oriented Denies headache, neck pain today, negative nuchal rigidity Cervical spine MRI revealing possible cervical osteomyelitis C5-C6, no abscess noted Continue empiric regimen for possible acute meningitis in the setting of neutropenia Continue IV vancomycin, meropenem, acyclovir orthopedic spine service consulted for possible cervical osteomyelitis discussed with infectious disease service 02/24 Patient clinically improving overall Mostly awake, alert, conversant, still somewhat confused Denies headache or neck pain, afebrile Lumbar puncture unable to be performed as patient was uncooperative, LP under anesthesia held in light of symptomatic bradycardic episode Evaluated by orthopedic spine service, recommend continue IV antibiotics for now, no surgery, patient recommendations Continue with IV vancomycin, meropenem, acyclovir ID service on board as well 02/25 clinically improving more interactive still on the weak side continue iv antibiotics for possible meningitis and cervical osteomyelitis Symptomatic bradycardia, 1st degree AV block History of paroxysmal atrial fibrillation EKG showing sinus bradycardia with first-degree AV block, heart rate high 40s Was intermittently symptomatic but improved rather quickly-blood pressure remained stable, mental status also improved Discontinue atenolol Administer atropine if patient is hemodynamically unstable, with altered mental status 02/25 No recurrence of symptomatic bradycardia Heart rate mostly above 60s Continue to monitor off atenolol Other significant medical conditions remained stable and are as follow:: Neutropeniachronic, 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 -- neutropenia worsening will consult hematology Paroxysmal atrial fibrillationDiscontinue atenolol secondary to symptomatic bradycardia not on anticoagulation Type 2 diabetes mellituscontinue on Lantus, NovoLog Hyperlipidemia, not on statin Rx History of DVT as per records Chronic anemia, hemoglobin at baseline History colovesical fistula status post surgery Past tobacco abuse Full code DVT prophylaxis heparin Discussed plan of care with patient's Agree with current medical management Clarified CODE STATUS She transition patient to condition:-No intubation, no cardiac defibrillation, proceed with medications only Admission and Anticipated Discharge Date Admission Date: February 13, 2025 Subjective ff up for possible meningitis, etc seen resting in bed, sitting up comfortable was very drowsy this morning on my exam, patient is awake, answering questions states he feels ok overall denies headache, dizziness, neck pain no other symptoms Review of Systems Review of Systems: all noted and negative except for above Physical Exam Physical Exam: General- oriented x 2, not in distress, speaks in sentences with no effort or accessory muscle use Eyes- anicteric Neck- no JVD no rigidity Lungs- clear breath sounds bilaterally, no rales/wheezes Heart- normal rate, regular rhythm; no murmurs Abdomen- normal bowel sounds, nondistended, soft, nontender Extremities- no pretibial edema, no calf tenderness Neuro- alert, oriented x 2; no gross focal neurologic deficits Skin- warm & dry Results & Data Results & Data Vital Signs (Past 12 Hours) Vital Signs Temp Pulse Resp BP Pulse Ox O2 Del Method 02/25/25 11:05 36.5 C 81 18 104/60 95 Room Air 02/25/25 08:00 Room Air 02/25/25 07:31 36.5 C 61 18 136/87 97 Room Air 02/25/25 04:49 36.5 C 85 18 138/87 98 Room Air all noted and reviewed including below
[2025-02-25] MEDS: CALCIUM CARBONATE 1250MG TAB PO SCH (16:22)
[2025-02-26 07:39] LABS: Albumin Globulin Ratio 1.2 (0.9-2); Albumin Level 2.2 gm/dl (3.4-5.0); BUN Creatinine Ratio 20.5 (10-20); Bilirubin,Total 0.4 mg/dl (0.2-1.0); Calcium 7.1 mg/dl (8.6-10.3); Creatinine Clr Calc Pharmacy 53.2 ml/min; Globulin 1.8 gm/dl (2.5-4.0); Magnesium 1.8 mg/dl (1.7-2.4); Phosphorus 3.3 mg/dl (2.5-4.9); Potassium 3.7 mmol/L (3.5-5.1)
[2025-02-26 08:41] LABS: Hematocrit (blood only) 28.6 % (42.0-52.0); Hemoglobin 9.3 g/dl (14.0-18.0); Mean Corpuscular Hemoglobin 31.1 pg (25.0-34.0); Mean Corpuscular Hgb Conc 32.5 g/dL (32.0-36.0); Mean Corpuscular Volume 95.7 fL (80.0-100.0); Mean Platelet Volume 9.2 fL (9.4-12.4); Platelet Count 405 K/uL (130-400); RDW Standard Deviation 51.5 fL (36.4-46.3); Red Blood Count 2.99 M/uL (4.70-6.10); White Blood Count 0.96 K/ul (4.8-10.8)
[2025-02-26 08:56] LABS: Eosinophils # (auto) 0.05 K/uL (0.00-0.50); Eosinophils % (auto) 5.2 %; Immature Granulocytes # (auto) 0.01 K/uL (0.01-0.20); Lymphocytes # (auto) 0.59 K/uL (1.20-3.40); Lymphocytes % (auto) 61.5 %; Monocytes # (auto) 0.06 K/uL (0.11-0.59); Monocytes % (auto) 6.3 %; Neutrophils # (auto) 0.25 K/uL (1.40-6.50)
[2025-02-26 08:57] LABS: Polychromasia 1+
--- NOTE | 2025-02-26 14:39 | Hospitalist Progress Note ---
Date of Service February 26, 2025 Assessment & Plan (1) Encephalopathy: (2) Acute urinary retention: (3) Acute UTI: Plan Acute metabolic encephalopathy Acute urinary retention Acute kidney injury Acute UTI Gram-positive cocci in cluster in blood culture possible acute meningitis in the setting of neutropenia Possible cervical osteomyelitis Patient presented to the hospital with altered mental status Found to have urinary retention for which Lopez catheter was placed Urinalysis positive for infection Urine culture growing E. coli- which is pansensitive Blood culture1 out of 4 blood culture bottles growing gram-negative cocci in clusters Creatinine downtrending with Lopez placement He was placed on intravenous vancomycin and ceftriaxone since admission Repeat blood cultures x 2 came back negative so 1 out of 4 blood cultures grew gram-negative cocci seems to be contaminant Discussed with the pharmacist and IV vancomycin is discontinued Patient remains stable but very weak and lethargic Urology consulted; recommended to maintain Lopez for 1 to 2 weeks; continue on antibiotics for UTI. . Plan to treat for at least 7 days of antibiotics. Acute encephalopathy seems to be improving Delirium precautions He seems to be at his baseline and remains weak and lethargic Will continue the course of antibiotic for UTI Has been participating in physical therapy- will need placement 02/21 patient still remains drowsy Around noon time, but more awake and alert, had breakfast this morning per RN Repeat CT head: No acute process VBG: No hypercapnia, ammonia level normal continue treatment for urinary tract infection in the setting of neutropenia Continue PT OT evaluation Hopefully patient must also improve continue to improve ID consulted for antibiotic recommendations given neutropenia will discuss with family regarding patient's baseline mental status as he remains drowsy 02/22 Still drowsy brain MRI: No acute process Attempted LP today but unsuccessful as patient was not able to tolerate Discussed with infectious disease service Will start empiric treatment of possible meningitis with vancomycin, meropenem, acyclovir Cervical spine MRI ordered Will need LP under anesthesia, will coordinate with IR service 02/23 clinically patient seems to have improved significantly compared to yesterday More awake and alert most of the day, more conversant, oriented Denies headache, neck pain today, negative nuchal rigidity Cervical spine MRI revealing possible cervical osteomyelitis C5-C6, no abscess noted Continue empiric regimen for possible acute meningitis in the setting of neutropenia Continue IV vancomycin, meropenem, acyclovir orthopedic spine service consulted for possible cervical osteomyelitis discussed with infectious disease service 02/24 Patient clinically improving overall Mostly awake, alert, conversant, still somewhat confused Denies headache or neck pain, afebrile Lumbar puncture unable to be performed as patient was uncooperative, LP under anesthesia held in light of symptomatic bradycardic episode Evaluated by orthopedic spine service, recommend continue IV antibiotics for now, no surgery, patient recommendations Continue with IV vancomycin, meropenem, acyclovir ID service on board as well 02/25 clinically improving more interactive still on the weak side continue iv antibiotics for possible meningitis and cervical osteomyelitis 02/26 continues to improve clinically interactive, eating meals still weak leukopenia worsening, management per below continue IV Abx- will discuss with ID Symptomatic bradycardia, 1st degree AV block History of paroxysmal atrial fibrillation EKG showing sinus bradycardia with first-degree AV block, heart rate high 40s Was intermittently symptomatic but improved rather quickly-blood pressure remained stable, mental status also improved Discontinue atenolol Administer atropine if patient is hemodynamically unstable, with altered mental status 02/26 No recurrence of symptomatic bradycardia Heart rate mostly above 60s Continue to monitor off atenolol Other significant medical conditions remained stable and are as follow:: Neutropeniachronic, 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 -- neutropenia worsening awaiting hematology recommendations Paroxysmal atrial fibrillationDiscontinue atenolol secondary to symptomatic bradycardia not on anticoagulation Type 2 diabetes mellituscontinue on Lantus, NovoLog Hyperlipidemia, not on statin Rx History of DVT as per records Chronic anemia, hemoglobin at baseline History colovesical fistula status post surgery Past tobacco abuse Full code DVT prophylaxis heparin Discussed plan of care with patient's Agree with current medical management Clarified CODE STATUS She transition patient to condition:-No intubation, no cardiac defibrillation, proceed with medications only Admission and Anticipated Discharge Date Admission Date: February 13, 2025 Subjective ff up for meningitis etc seen resting in bed, comfortable awake, alert, conversant states he feels fine overall denies headache, dizziness no chest pain, dyspnea, palpitations, dizziness no other symptoms finished 50% breakfast Review of Systems Review of Systems: all noted and negative except for above Physical Exam Physical Exam: General- oriented x 1-2, not in distress, speaks in sentences with no effort or accessory muscle use Eyes- anicteric Neck- no JVD Lungs- clear breath sounds bilaterally, no rales/wheezes Heart- normal rate, regular rhythm; no murmurs Abdomen- normal bowel sounds, nondistended, soft, nontender Extremities- no pretibial edema, no calf tenderness Neuro- alert, oriented x 1-2; no gross focal neurologic deficits Skin- warm & dry Results & Data Results & Data Vital Signs (Past 12 Hours) Vital Signs Temp Pulse Pulse Resp BP Pulse Ox O2 Del Method 02/26/25 11:30 53 L 02/26/25 11:30 Room Air 02/26/25 10:52 36.6 C 125 H 18 117/53 L 97 Room Air 02/26/25 07:20 36.5 C 65 18 116/66 97 Room Air 02/26/25 03:00 36.5 C 70 16 106/74 97 Room Air
[2025-02-26] MEDS: ATROPINE SULFATE 0.1 MG/ML 10ML SYR IV ONE (19:39)
[2025-02-26] MEDS: POTASSIUM CHLORIDE 20 MEQ in LACTATED RINGER'S 1,000 ML IV ONE (21:33)
[2025-02-26] MEDS: MAGNESIUM SULFATE / D5W 1 GM/100 ML BAG IV ONE (21:33)
[2025-02-26] MEDS: POTASSIUM CHLORIDE PWD 20 MEQ PACK PO STA (21:33)
[2025-02-27 05:48] LABS: Albumin Level 2.2 gm/dl (3.4-5.0); BUN Creatinine Ratio 18.7 (10-20); Bilirubin,Total 0.4 mg/dl (0.2-1.0); Calcium 7.3 mg/dl (8.6-10.3); Creatinine Clr Calc Pharmacy 51.5 ml/min; Globulin 2.1 gm/dl (2.5-4.0); Magnesium 1.8 mg/dl (1.7-2.4); Phosphorus 3.2 mg/dl (2.5-4.9); Potassium 4.2 mmol/L (3.5-5.1); Total Protein 4.3 gm/dl (6.0-8.3)
[2025-02-27 06:05] LABS: Hematocrit (blood only) 28.8 % (42.0-52.0); Hemoglobin 9.6 g/dl (14.0-18.0); Mean Corpuscular Hemoglobin 31.4 pg (25.0-34.0); Mean Corpuscular Hgb Conc 33.3 g/dL (32.0-36.0); Mean Corpuscular Volume 94.1 fL (80.0-100.0); Mean Platelet Volume 8.9 fL (9.4-12.4); Platelet Count 418 K/uL (130-400); RDW Coefficient of Variation 14.7 % (11.5-14.5); RDW Standard Deviation 50.3 fL (36.4-46.3); Red Blood Count 3.06 M/uL (4.70-6.10); White Blood Count 0.84 K/ul (4.8-10.8)
[2025-02-27 06:10] LABS: Eosinophils # (auto) 0.03 K/uL (0.00-0.50); Eosinophils % (auto) 3.6 %; Immature Granulocytes # (auto) 0.01 K/uL (0.01-0.20); Immature Granulocytes % (auto) 1.2 %; Lymphocytes # (auto) 0.53 K/uL (1.20-3.40); Lymphocytes % (auto) 63.1 %; Monocytes # (auto) 0.03 K/uL (0.11-0.59); Monocytes % (auto) 3.6 %; Neutrophils # (auto) 0.24 K/uL (1.40-6.50); Neutrophils % (auto) 28.5 %
--- NOTE | 2025-02-27 08:31 | Pharmacy Report ---
Pharmacy PK ABX Note - Date of Service February 27, 2025 - Assessment and Plan Assessment 02/27: * Day #6 of Vancomycin, Meropenem, and Acyclovir for empiric treatment of meningitis in the setting of neutropenia. ID on board. * Vanc level today was supratherapeutic. SCr stable. 02/24: * Day #3 of Vancomycin, Meropenem, and Acyclovir for empiric treatment of meningitis. ID on board. * Vanc level today was therapeutic. SCr near baseline. 02/22: 89 year old M admitted on 02/13 for encephalopathy. Previously treated with ceftriaxone for UTI and a few days of vancomycin IV for CONS growing in 1 of 4 BC bottles, thought to be a contaminant. 02/21 - ID consulted for antibiotic recommendations in the setting neutropenia. 02/22 - LP attempted but patient unable to tolerate. Empiric antibiotics started for coverage of meningitis per ID. Antibiotic course Vancomycin 02/16 - 02/18 Ceftriaxone 02/14 - 02/22 Fluconazole - continued from outpatient Valacyclovir - continue from outpatient, now on hold Plan Vancomycin * Current regimen: 1500 mg IV every 24 hours * Random level obtained 02/27/25 resulted as 25.3 mcg/mL. This is predicted to be ABOVE the target AUC/ADDY of 400-600 mg/L.hr * Change dose to 1000 mg IV every 24 hours * Repeat random level ordered for: 03/02/25 Meropenem * 2000 mg IV every 8 hours Acyclovir * 10 mg/kg IV every 8 hours Pharmacy will continue to follow and will adjust dose/frequency as necessary. Thank you. Pharmacy has transitioned to AUC monitoring for vancomycin. AUC/ADDY is the preferred PK/PD target and is associated with decreased risk of nephrotoxicity compared to traditional trough targets.
[2025-02-27] MEDS: MAGNESIUM OXIDE 400 MG TAB PO SCH (08:56)
--- NOTE | 2025-02-27 12:35 | Infectious Disease Progress Nt ---
Date of Service February 27, 2025 Telehealth Information Non billable note (written after chart review and discussion w/ primary team on site) Assessment & Plan (1) Cervical discitis: Plan: Assessment: R/o acute discovertebral OM, C5-6 E coli UTI (02/12) treated w/ 1 week of CTX Staph petmarinakoferi in blood likely contaminant Chronic neutropenia Hx of allergy to PCN, sulfa Recommendations: - Discontinue acyclovir as it is difficult to believe HSV/VZV encephalitis would improve w/ one dose of acyclovir. Also, MRI brain did not show an obvious findings suggestive of such infection. - Consider switching meropenem to ertapenem 1 gm iv qd for dosing convenience. - Continue vancomycin iv to maintain AUC 400-600 - Anticipate total 6 weeks from 02/24/25 to 04/06/25 - Check weekly vancomycin level, CRP, CMP and CBC w/ diff while on abx - F/u w/ outpatient ID clinic w/in 4-6 weeks: patient can be seen by any available ID provider. - ID signing off Although we had no microbiologic diagnosis, it is difficult to ignore the MRI finding given patients immunocompromised state and clinical presentation w/ pertinent symptoms (i.e., headache and neck pain). Pseudomonas usually does not hide. His blood cultures have been negative but the coag negative Staph (probabl contaminant). The patient was initially on ceftriaxone but this this cover the OM? Unclear but it seems like the patient did not improve on ceftriaxone. T herefore, I recommend to continue w/ a carbapenem, ertapenem. I would also continue vancomycin iv as Staph spp including MRSA are on micro differentials. 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 His mental status, lethargy, not improving, but patient complaining PERRIN and neck pain, he was started on iv acyclovir, vancomycin iv and meropenem for r/o [employer] infection: LP not performed as the patient did not tolerate the procedure, developing symptomatic bradycardia w/ apnea and unresponsiveness. Surprisingly, lethargy resolved the day after the empiric regimen was started: patient is clinically much better, awake, alert, interactive and conversant per Dr. Garibay. MRI of C spine showed findings concerning for acute discovertebral OM at C5-6, however. Results & Data Vital Signs (Past 12 Hours) Vital Signs Temp Pulse Resp BP Pulse Ox O2 Del Method 02/27/25 11:51 Room Air 02/27/25 10:44 36.8 C 84 18 131/64 96 Room Air 02/27/25 07:34 36.6 C 86 18 145/66 H 96 Room Air 02/27/25 03:25 36.8 C 106 H 18 122/54 L 95 Room Air Laboratory Results WBC 0.84K (ANC 240) H 9.6 Plt 418K Cr 0.91 (CrCl 51.5) LFT unremarkable Blood cx (02/12): Staph spp detected UA (02/12): trace LE, 4+ bacteria U cx (02/12): E coli (odell S) Blood cx (02/12): Staph pettenkoferi (1 of 4) GI pathogen panel (02/14): neg C diff pcr tox (02/14): neg Blood cx (02/17): NG CT chest (02/12): No lobar consolidation. There is a rounded focal nodular juxtapleural structure along the posterior medial aspect of the left lower lobe measuring 9 x 11 x 9 mm. Favor rounded atelectasis; however, an underlying solid lesion is not excluded. MRI brain (02/21/25): no evidence of acute intracranial pathology MRI cervical spine (02/22/25): findings concerning for acute discovertebral OM at C5-6 (no abscess)
[2025-02-27] MEDS: VANCOMYCIN HCL 1,000 MG/270 ML BAG IV SCH (15:08)
--- NOTE | 2025-02-27 15:52 | Hospitalist Progress Note ---
Date of Service February 27, 2025 Assessment & Plan (1) Encephalopathy: (2) Acute urinary retention: (3) Acute UTI: Plan Acute metabolic encephalopathy Acute urinary retention Acute kidney injury Acute UTI Possible Cervical Osteomyelitis 02/27 Patient initially admitted for encephalopathy secondary to UTI in the setting of chronic neutropenia, and received 1 week course of ceftriaxone while admitted. However mental status did not improve-still lethargic, and was complaining of headache and neck pain. Dr. Lam suggested workup for acute meningitis. However patient did not tolerate lumbar tap and IR was recommending LP with anesthesia. He was empirically covered with IV vancomycin, meropenem and acyclovir. The next day, patient surprisingly clinically improved-more awake and alert. Cervical spine MRI also ordered for the neck pain and is showing possible cervical osteomyelitis. Ortho consulted and recommending IV antibiotics... Currently, patient is clinically much better, awake, alert, interactive, conversant. Denies headache, neck pain... He is on day 5 of IV vancomycin, meropenem, acyclovir... LP with anesthesia could not be performed as patient also developed symptomatic bradycardia with apnea and unresponsiveness over the weekend. discussed with ID Dr. Alfonso, recommendations: Assessment: R/o acute discovertebral OM, C5-6 E coli UTI (02/12) treated w/ 1 week of CTX Staph pettenkoferi in blood likely contaminant Chronic neutropenia Hx of allergy to PCN, sulfa Recommendations: - Discontinue acyclovir as it is difficult to believe HSV/VZV encephalitis would improve w/ one dose of acyclovir. Also, MRI brain did not show an obvious findings suggestive of such infection. - Consider switching meropenem to ertapenem 1 gm iv qd for dosing convenience. - Continue vancomycin iv to maintain AUC 400-600 - Anticipate total 6 weeks from 02/24/25 to 04/06/25 - Check weekly vancomycin level, CRP, CMP and CBC w/ diff while on abx - F/u w/ outpatient ID clinic w/in 4-6 weeks: patient can be seen by any available ID provider. - ID signing off Symptomatic bradycardia, 1st degree AV block History of paroxysmal atrial fibrillation 02/23 Patient noted to be bradycardic on telemetry, with associated unresponsiveness and apnea EKG showing sinus bradycardia with first-degree AV block, heart rate high 40s Was intermittently symptomatic but improved rather quickly-blood pressure remained stable, mental status also improved Discontinued atenolol 02/27 No recurrence of symptomatic bradycardia Heart rate mostly above 60s Atenolol discontinued Neutropeniachronic -- neutropenia worsening awaiting hematology recommendations Other significant medical conditions remained stable and are as follow:: Paroxysmal atrial fibrillationDiscontinue atenolol secondary to symptomatic bradycardia not on anticoagulation Type 2 diabetes mellituscontinue on Lantus, NovoLog Hyperlipidemia, not on statin Rx History of DVT as per records Chronic anemia, hemoglobin at baseline History colovesical fistula status post surgery Past tobacco abuse Conditional code DVT prophylaxis heparin Discussed plan of care with patient's Agree with current medical management Disposition d/c to SNF with IV antibiotic as per above when medically stable Admission and Anticipated Discharge Date Admission Date: February 13, 2025 Subjective ff up for altered mental status, etc seen resting in bed, sitting up awake, alert, conversant, oriented x 1-2 answers simple questions appropriately states he feels ok overall denies headache, neck pain no other symptoms Review of Systems Review of Systems: all noted and negative except for above Physical Exam Physical Exam: General- oriented x 1-2, not in distress, speaks in sentences with no effort or accessory muscle use Eyes- anicteric Neck- no JVD Lungs- clear breath sounds bilaterally, no rales/wheezes Heart- normal rate, regular rhythm; no murmurs Abdomen- normal bowel sounds, nondistended, soft, no tenderness Extremities- no pretibial edema, no calf tenderness Neuro- alert, oriented x 3; no gross focal neurologic deficits Skin- warm & dry Results & Data Results & Data Vital Signs (Past 12 Hours) Vital Signs Temp Pulse Resp BP Pulse Ox O2 Del Method 02/27/25 15:35 36.7 C 82 18 139/69 98 Room Air 02/27/25 11:51 Room Air 02/27/25 10:44 36.8 C 84 18 131/64 96 Room Air 02/27/25 07:34 36.6 C 86 18 145/66 H 96 Room Air all noted and reviewed including below
[2025-02-27] MEDS: ERTAPENEM 1000MG 1,000 MG/10 ML SYR IV SCH (16:28)
--- NOTE | 2025-02-27 17:05 | Oncology Consultation ---
Date of Consultation February 27, 2025 Assessment & Plan (1) Neutropenia: Plan Gentleman with chronic idiopathic neutropenia with previous bone marrow biopsy negative for malignancy. -Since previous bone marrow biopsy was negative, may consider giving G-CSF to shorten duration of neutropenia. Could give filgrastim 480 mcg SC daily x 2 to 3 days to see if he responds. 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 History of Present Illness Reason for Consultation: Neutropenia Attending Physician: Darrell Garibay MD History of Present Illness 89-year-old gentleman with medical history significant for chronic leukopenia, atrial fibrillation, hypertension, gout, hyperlipidemia. Patient underwent bone marrow biopsy on 01/25/2023 for chronic leukopenia which revealed cellular marrow with trilineage hematopoiesis and granulocytic hypoplasia. No features of MDS was noted although T cells were noted to be mildly increased with decreased CD4: CD8 ratio. He presented to the ER with altered mental status thought to be due to UTI. Allergies Allergy/AdvReac Type Severity Reaction Status Date / Time Penicillins Allergy Intermediate HIVES Verified 10/10/24 17:05 Sulfa (Sulfonamide Allergy Intermediate RASH Verified 10/10/24 17:05 Antibiotics) tree and shrub pollen Allergy Intermediate CONGESTION Verified 10/10/24 17:05 Home Medications Medication Instructions Recorded Confirmed Type atenolol 25 mg tablet 25 mg PO QAM #30 tabs 01/27/23 02/13/25 Rx azelastine 137 mcg (0.1 %) nasal 2 spray intranasal BID PRN 01/27/23 02/13/25 Rx spray Congestion #30 mL valacyclovir 1 gram tablet 1,000 mg PO BID #60 tabs 01/27/23 02/13/25 Rx finasteride 5 mg tablet (Proscar) 5 mg PO QAM PRN NEEDED PER 07/04/23 02/13/25 History PT/GMG terazosin 2 mg capsule 2 mg PO HS 07/04/23 02/13/25 History aspirin 81 mg tablet,delayed 81 mg PO QAM #30 tabs 07/05/23 02/13/25 Rx release flash glucose scanning reader #1 ea 07/07/23 10/10/24 Rx (FreeStyle Clementine [place]) diphenoxylate-atropine 2.5 1 tab PO BID PRN Severe Diarrhea 06/29/24 02/13/25 History mg-0.025 mg tablet hydroxyzine HCl 25 mg tablet 25 mg PO Q6 PRN Itching 06/29/24 02/13/25 History ketoconazole 2 % shampoo 1 applic topical DIRECTED 06/29/24 02/13/25 History fluconazole 100 mg tablet 100 mg PO QAM #30 tabs 07/03/24 02/13/25 Rx (Diflucan) levofloxacin 500 mg tablet 500 mg PO DAILY@1100 #30 tabs 07/03/24 02/13/25 Rx pen needle, diabetic 32 gauge x #400 ea 07/07/24 10/10/24 Rx 5/32" (BD Prachi 2nd Gen Pen Needle) FreeStyle Clementine 2 Sensor (flash #6 ea 07/31/24 10/10/24 Rx glucose sensor) insulin glargine 100 unit/mL (3 20 unit (0.2 mL) subcut DAILY #15 10/03/24 02/13/25 Rx mL) subcutaneous pen (Lantus mL Solostar U-100 Insulin) insulin aspart U-100 100 unit/mL 15 unit (0.15 mL) subcut TID #15 mL 10/10/24 02/13/25 Rx (3 mL) subcutaneous pen (Novolog FlexPen U-100 Insulin aspart) clobetasol 0.05 % topical ointment 1 applic topical BID 02/13/25 02/13/25 History lidocaine 4 % topical patch 1 patch topical BID PRN Pain 02/13/25 02/13/25 History melatonin 3 mg tablet 3 mg PO HS PRN Sleep 02/13/25 02/13/25 History Patient History Medical History PMR (polymyalgia rheumatica) Postoperative urethral stricture DVT (deep venous thrombosis) Actinic keratosis Urinary retention UTI (lower urinary tract infection) UTI (lower urinary tract infection) Left leg DVT H/O prostatitis Diverticulitis Diverticulitis (07/23/14) Surgical History History of surgery Stomach, skin History of back surgery History of knee surgery S/P TURP Family History Other Family history non-contributory Heart disease No family history of adverse response to anesthesia No family history of bleeding disorder Denies family history of Ovarian cancer Prostate cancer Myocardial infarction Breast cancer Colorectal cancer Social History Smoking Status: Unknown if ever smoked Second Hand Exposure: No; Do You Dip or Chew Tobacco: No; Hx Alcohol Use: No (Unknown) Hx Substance Use: No Preferred Language: Uzbek Communication Ability: Effective Visual Impairment: No Limitations Hearing Ability: Hard of Hearing Boat Driver Required: No Beliefs That Will Affect Care: Spiritual marital status: Current Living Situation: Spouse Current Living Situation Comment: Single family home current occupational status: retired How many Children do You have: 3 Feels Safe at Home: Yes Childhood Exposure to Second-Hand Smoke: No Diet: regular Dental Care, Regularly: Yes Physical Activity Frequency: 3-4 Times per Week Seatbelt Use: always Sunscreen Use: No Assistive Devices: Cane and Walker Results & Data Vital Signs (Past 12 Hours) Vital Signs Temp Pulse Pulse Resp BP Pulse Ox O2 Del Method 02/27/25 16:15 89 02/27/25 15:35 36.7 C 82 18 139/69 98 Room Air 02/27/25 11:51 Room Air 02/27/25 10:44 36.8 C 84 18 131/64 96 Room Air 02/27/25 07:34 36.6 C 86 18 145/66 H 96 Room Air
[2025-02-27] MEDS: FILGRASTIM 480 MCG/0.8 ML SYRINGE SQ SCH (18:31)
[2025-02-28 06:54] LABS: Hematocrit (blood only) 28.7 % (42.0-52.0); Hemoglobin 9.6 g/dl (14.0-18.0); Mean Corpuscular Hemoglobin 31.5 pg (25.0-34.0); Mean Corpuscular Hgb Conc 33.4 g/dL (32.0-36.0); Mean Corpuscular Volume 94.1 fL (80.0-100.0); Mean Platelet Volume 8.9 fL (9.4-12.4); Platelet Count 390 K/uL (130-400); RDW Coefficient of Variation 14.6 % (11.5-14.5); RDW Standard Deviation 49.1 fL (36.4-46.3); Red Blood Count 3.05 M/uL (4.70-6.10)
[2025-02-28 07:29] LABS: BUN Creatinine Ratio 17.3 (10-20); Calcium 7.4 mg/dl (8.6-10.3); Magnesium 1.7 mg/dl (1.7-2.4); Phosphorus 3.2 mg/dl (2.5-4.9); Potassium 4.2 mmol/L (3.5-5.1)
[2025-02-28 07:55] LABS: White Blood Count 1.82 K/ul (4.8-10.8)
[2025-02-28 07:56] LABS: Eosinophils # (auto) 0.06 K/uL (0.00-0.50); Eosinophils % (auto) 3.3 %; Immature Granulocytes # (auto) 0.12 K/uL (0.01-0.20); Immature Granulocytes % (auto) 6.6 %; Lymphocytes # (auto) 0.66 K/uL (1.20-3.40); Lymphocytes % (auto) 36.3 %; Monocytes # (auto) 0.08 K/uL (0.11-0.59); Monocytes % (auto) 4.4 %; Neutrophils % (auto) 49.4 %
--- NOTE | 2025-02-28 12:32 | Hospitalist Progress Note ---
Date of Service February 28, 2025 Assessment & Plan (1) Encephalopathy: (2) Acute urinary retention: (3) Acute UTI: Plan Acute metabolic encephalopathy Acute urinary retention Acute kidney injury Acute UTI Possible Cervical Osteomyelitis 02/27 Patient initially admitted for encephalopathy secondary to UTI in the setting of chronic neutropenia, and received 1 week course of ceftriaxone while admitted. However mental status did not improve-still lethargic, and was complaining of headache and neck pain. Cervical spine MRI also ordered for the neck pain and is showing possible cervical osteomyelitis. ID consulted and recommending IV antibiotics. discussed with ID Dr. Alfonso, recommendations: Assessment: R/o acute discovertebral OM, C5-6 E coli UTI (02/12) treated w/ 1 week of CTX Staph pettenkoferi in blood likely contaminant Chronic neutropenia Hx of allergy to PCN, sulfa Recommendations: - Discontinue acyclovir as it is difficult to believe HSV/VZV encephalitis would improve w/ one dose of acyclovir. Also, MRI brain did not show an obvious findings suggestive of such infection. - Consider switching meropenem to ertapenem 1 gm iv qd for dosing convenience. - Continue vancomycin iv to maintain AUC 400-600 - Anticipate total 6 weeks from 02/24/25 to 04/06/25 - Check weekly vancomycin level, CRP, CMP and CBC w/ diff while on abx - F/u w/ outpatient ID clinic w/in 4-6 weeks: patient can be seen by any available ID provider. - ID signing off Symptomatic bradycardia, 1st degree AV block History of paroxysmal atrial fibrillation Patient noted to be bradycardic on telemetry, with associated unresponsiveness and apnea EKG showing sinus bradycardia with first-degree AV block, heart rate high 40s Was intermittently symptomatic but improved rather quickly-blood pressure remained stable, mental status also improved Discontinued atenolol Neutropeniachronic -- neutropenia worsening; Recommended Neupogen for 2 to 3 days Other significant medical conditions remained stable and are as follow:: Paroxysmal atrial fibrillationDiscontinue atenolol secondary to symptomatic bradycardia not on anticoagulation Type 2 diabetes mellituscontinue on Lantus, NovoLog Hyperlipidemia, not on statin Rx History of DVT as per records Chronic anemia, hemoglobin at baseline History colovesical fistula status post surgery Past tobacco abuse Conditional code DVT prophylaxis heparin Disposition Possible discharge in a.m. on IV antibiotic. PICC line consent taken over the phone with the patient's . I discussed patient's hospital course. Patient has significant deconditioning from prolonged hospitalization. His mentation still waxes and wanes. Given his multiple comorbidities; prognosis is guarded. I discussed possible hospice referral if things do not improve. She wants to continue IV antibiotics for the time being and consider hospice care if treatment does not change patient's mentation/functional status. Time spent evaluating patient, direct bedside care, chart review, placing orders, interpretation of diagnostic studies, discussion with consultants, patient, and family members, as well as other required patient management activities is 50 minutes Please note the above document was generated using voice recognition software. It may contain grammatical, syntax or spelling errors. Any formal questions or concerns about the content, text or information contained within the body of this dictation should be directly addressed to the provider for clarification Admission and Anticipated Discharge Date Admission Date: February 13, 2025 Subjective Patient seen and examined at bedside. He is sleepy but awake eval by voice. Denies any pain or discomfort Vital signs remained stable Review of Systems 2 Review of Systems: All systems reviewed & are unremarkable except as noted in Subjective Physical Exam Physical Exam: Constitutional: Awake, oriented to self. Not in distress Respiratory: normal respiratory effort, lungs clear to auscultation, no wheeze, rales, rhonchi. Normal insp/exp effort, no accessory muscle use Cardiovascular: RRR, no murmur, no edema Vessels: no JVD or carotid bruit Chest: normal inspection of chest Abdomen: normal bowel sounds, soft, nontender, no hepatosplenomegaly Musculoskeletal: no cyanosis or clubbing, extremities motor strength 5/5 Skin: no rashes, warm and dry normal turgor Neurologic: PERRL, EOMI, accommodation nl, no face palsy, no dysarthria CN's II- XI intact bilaterally and moves all extremities Results & Data Results & Data Vital Signs (Past 12 Hours) Vital Signs Temp Pulse Pulse Resp BP Pulse Ox O2 Del Method 02/28/25 10:45 36.6 C 77 17 112/58 L 92 Room Air 02/28/25 07:36 Room Air 02/28/25 07:35 93 H 02/28/25 07:24 36.8 C 76 17 101/51 L 94 Room Air 02/28/25 04:22 36.6 C 101 H 16 127/64 94 Room Air 02/28/25 01:40 94 H
[2025-02-28 15:39] VITALS: RESP 18
[2025-03-01 07:12] VITALS: O2SAT 96
[2025-03-01 07:31] LABS: Hematocrit (blood only) 28.4 % (42.0-52.0); Hemoglobin 9.4 g/dl (14.0-18.0); Mean Corpuscular Hemoglobin 31.6 pg (25.0-34.0); Mean Corpuscular Hgb Conc 33.1 g/dL (32.0-36.0); Mean Corpuscular Volume 95.6 fL (80.0-100.0); Mean Platelet Volume 9.1 fL (9.4-12.4); Platelet Count 381 K/uL (130-400); RDW Coefficient of Variation 14.8 % (11.5-14.5); RDW Standard Deviation 50.9 fL (36.4-46.3); Red Blood Count 2.97 M/uL (4.70-6.10); White Blood Count 2.26 K/ul (4.8-10.8)
[2025-03-01 07:44] LABS: Creatinine Clr Calc Pharmacy 43.8 ml/min
[2025-03-01 08:17] LABS: ALC (manual) 1.24 K/uL (1.2-3.4); Basophils # (manual) 0.02 K/uL (0-0.2); Basophils % (manual) 1 %; Eosinophils # (manual) 0.07 K/uL (0-0.50); Eosinophils % (manual) 3 %; Lymphocytes # (manual) 1.24 K/uL (1.2-3.4); Lymphocytes % (manual) 55 %; Monocytes # (manual) 0.02 K/uL (0.11-0.59); Monocytes % (manual) 1 %; Neutrophils % (manual) 40 %; Polychromasia 1+
[2025-03-01 11:04] VITALS: BP 130/64; TEMP 97.2
[2025-03-01 12:06] VITALS: PULSE 82
--- NOTE | 2025-03-01 12:08 | Discharge Summary ---
Date of Service March 01, 2025 Admission HPI Per Admitting Provider Listory obtained from patient and records. Limited history from patient secondary to confusion. Medical history significant for PAF not on anticoagulation, valvular heart disease (mild /AR), PVD, CVA, hypertension, hyperlipidemia, DM 2 insulin requiring, history of DVT as per records, chronic anemia (baseline hemoglobin 11-12), chronic idiopathic neutropenia on chronic antimicrobial/antifungal/antiviral prophylaxis, BPH, history colovesical fistula status post surgery, PMR, skin cancer as per records, past tobacco abuse. Last confinement June 2024 for generalized weakness and hypotension. Hematology consulted for chronic idiopathic neutropenia. Patient has refused bone marrow biopsy recommendations in the past. Program Counselor recommended chronic anti-infective prophylaxis (Levaquin, acyclovir, fluconazole) on discharge. Patient noted to be confused the last few days. Vomiting and diarrhea symptoms. Patient not taking his medications. Patient brought to ER for evaluation. 2 L of urine upon Lopez catheter insertion. 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 Admission Exam Per Admitting Provider GENERAL: Disoriented, slightly hard of hearing, no respiratory distress SKIN: Pallor, warm HEENT: pale palpebral conjunctivae, no ptosis, dry buccal mucosa NECK : Supple, no tenderness CHEST : CTA, no tenderness HEART : RRR, systolic murmur ABDOMEN: Some distention, nontender EXTREMITIES : No LE swelling/tenderness, no other conspicuous deformities noted NEUROLOGIC : Disoriented, no facial asymmetry, hard of hearing, gait and stance not assessed Principal Diagnosis Acute metabolic encephalopathy Acute urinary retention Acute kidney injury Acute UTI Possible Cervical Osteomyelitis Discharge Exam Constitutional: Awake, oriented to self. Not in distress Respiratory: normal respiratory effort, lungs clear to auscultation, no wheeze, rales, rhonchi. Normal insp/exp effort, no accessory muscle use Cardiovascular: RRR, no murmur, no edema Vessels: no JVD or carotid bruit Chest: normal inspection of chest Abdomen: normal bowel sounds, soft, nontender, no hepatosplenomegaly Musculoskeletal: no cyanosis or clubbing, extremities motor strength 5/5 Skin: no rashes, warm and dry normal turgor Neurologic: PERRL, EOMI, accommodation nl, no face palsy, no dysarthria CN's II- XI intact bilaterally and moves all extremities Discharge Data Allergies Allergy/AdvReac Type Severity Reaction Status Date / Time Penicillins Allergy Intermediate HIVES Verified 10/10/24 17:05 Sulfa (Sulfonamide Allergy Intermediate RASH Verified 10/10/24 17:05 Antibiotics) tree and shrub pollen Allergy Intermediate CONGESTION Verified 10/10/24 17:05 atenolol AdvReac Severe bradycardia, Uncoded 02/27/25 17:12 unresponsiveness Consultations 02/13/25 00:44 ED Decision to Admit Stat 02/13/25 03:25 Consult Urology Routine 02/21/25 08:59 Consult Infectious Diseases Routine 02/21/25 15:48 Consult Neurology Routine 02/23/25 12:01 Consult Orthopedic Surgery Routine 02/25/25 14:42 Consult Hematology Routine Ordered Studies 02/12/25 21:44 CT head/brain wo con Stat 02/12/25 22:22 CT abd pelvis wo con Stat CT chest diagnostic wo con Stat 02/21/25 11:12 CT head/brain wo con Stat 02/21/25 15:44 MRI Brain [MR brain wo con] Routine 02/22/25 11:30 FL fluoroscopy <1hr Routine 02/22/25 14:50 MRI Neck [MR cervical spine wo con] Routine Hospital Course (1) Encephalopathy: (2) Acute urinary retention: (3) Acute UTI: Plan Acute metabolic encephalopathy Acute urinary retention Acute kidney injury Acute UTI Possible Cervical Osteomyelitis Patient initially admitted for encephalopathy secondary to UTI, Acute kidney injury and urinary retention in the setting of chronic neutropenia, and received 1 week course of ceftriaxone while admitted. However mental status did not improve-still lethargic, and was complaining of headache and neck pain. Cervical spine MRI also ordered for the neck pain and is showing possible cervical osteomyelitis. Infectious disease was consulted and patient was started on IV vancomycin and ertapenem as per recommendation. The plan is to give the antibiotic for 6 weeks until April 06, 2025. Patient will need weekly vancomycin level, CRP, CMP and CBC with differential while on antibiotics. Outpatient pharmacist from [facility] was informed at the time of the discharge to follow-up on lab work. Patient mentation had slightly improved and he was responding to some questions at the time of the discharge. However, he had periods of altered mentation and lethargy. Goals of care was extensively discussed with the patient's 7 multiple times during the hospitalization and at the time of the discharge. Patient is to be discharged to rehab and see if the trial of antibiotic shows any improvement in mentation and overall function. If the trial of antibiotic did not show any improvement in the mentation and overall functional status; plan is to transition to hospice care at rehab or at home. Instructions were placed regarding Lopez catheter and wound care change. Symptomatic bradycardia, 1st degree AV block History of paroxysmal atrial fibrillation Patient noted to be bradycardic on telemetry, with associated unresponsiveness and apnea EKG showing sinus bradycardia with first-degree AV block, heart rate high 40s Was intermittently symptomatic but improved rather quickly-blood pressure remained stable, mental status also improved Atenolol discontinued at discharge Neutropeniachronic Patient was previously evaluated for the issue in the past with bone marrow biop sy which was inconclusive. Patient did not want further evaluation. Hematology was consulted while patient was inpatient and was given Neupogen for 2 days with some improvement in neutropenia. Please note the above document was generated using voice recognition software. It may contain grammatical, syntax or spelling errors. Any formal questions or concerns about the content, text or information contained within the body of this dictation should be directly addressed to the provider for clarification Total Time Total Time Spent Total Time Spent (In Minutes): 56 Total Time Includes: Examination of the Patient, Discharge Planning, Medication Reconciliation, Communication With Other Providers and Other Discharge Plan Discharge Items Patient Disposition: Transfer [facility] Reason For Visit: ENCEPHALOPATHY Discharge Diagnosis: Acute metabolic encephalopathy Acute urinary retention Acute kidney injury Acute UTI Possible Cervical Osteomyelitis Condition on Discharge: Fair Activity: Resume your previous activity Non-emergency contact: Primary Care Provider Call non-emergency contact if: you have any medication questions and your symptoms worsen Follow-up/Referrals: Tarun Herrera MD [Primary Care Provider] - Diet: Regular and Carb Consistent or DM2 Diet Texture: Pureed (blended smooth) Diet Comment: Will need one-to-one feeding in upright position Addtl Attending Provider Instructions: You are prescribed following medication; Ertapenem 1 g once a day until April 06, 2025 Vancomycin 1 g once a day until April 06, 2025 He will need weekly vancomycin level, CRP, CMP and CBC with differential while on antibiotic. Please obtain blood work every week on Wednesday. Fax the blood work to [facility] infectious disease clinic. Patient was seen by Dr. Alfonso during the hospitalization. Dose of the vancomycin should be adjusted to maintain AUC of 400-600. He will need to have Lopez catheter needs changed every 4 weeks. Lopez catheter was last placed on February 13, 2025. The Lopez catheter needs to be exchanged on March 12, 2025. He needs to be seated upright while feeding, pured diet and one-to-one feeding. For wound care instruction; left heel with OptiForm, right with Allevyn and sacral allevyn. He needs to be turned every 2 hours to prevent further bedsore formation. Pending Studies at Discharge: No Stand-Alone Forms: My [facility] Skilled Items Patient informed of condition?: No DNR: No Discharge Level of Care: Skilled Communicable Disease: No Discharge Prognosis: Stable Lines: PICC Urinary Catheter: Yes Medications and DC Order Prescriptions: New magnesium oxide 400 mg (241.3 mg magnesium) Tablet 400 mg PO BID Qty: 60 0RF insulin glargine [Lantus U-100 Insulin] 100 unit/mL Solution 5 unit subcut BID 30 Days Qty: 3 0RF ertapenem 1 gram recon soln 1 g IV DAILY 37 Days Qty: 37 0RF vancomycin 1,000 mg recon soln 1,000 mg IV DAILY 37 Days Qty: 37 0RF Continued fluconazole [Diflucan] 100 mg Tablet 100 mg PO QAM Qty: 30 0RF valacyclovir 1 gram tablet 1,000 mg PO BID Qty: 60 0RF melatonin 3 mg Tablet 3 mg PO HS PRN (Reason: Sleep) Qty: 20 0RF aspirin 81 mg Tablet,Delayed Release (Dr/Ec) 81 mg PO QAM Qty: 30 1RF terazosin 2 mg capsule 2 mg PO HS Qty: 30 0RF clobetasol 0.05 % Ointment 1 applic TOPICAL BID Qty: 45 0RF azelastine 137 mcg (0.1 %) aerosol,spray 2 spray intranasal BID PRN (Reason: Congestion) Qty: 30 0RF finasteride [Proscar] 5 mg tablet 5 mg PO QAM PRN (Reason: NEEDED PER PT/GMG) Qty: 30 0RF Discontinued (DME) [email or web address] Clement[facility] [place] [facility] See Rx Instructions .Route Qty: 1 0RF Rx Instructions: As directed (DME) pen needle, diabetic [BD Prachi 2nd Gen Pen Needle] 32 gauge x 5/32" needle See Rx Instructions .Route Qty: 400 3RF Rx Instructions: use with each insulin injection 4 times a day (DME) FreeStyle Clementine 2 Sensor Kit See Rx Instructions .Route Qty: 6 3RF Rx Instructions: Change sensor every 14 days insulin glargine [Lantus Solostar U-100 Insulin] 100 unit/mL (3 mL) insulin pen 20 unit subcut DAILY Qty: 15 3RF insulin aspart U-100 [Novolog FlexPen U-100 Insulin] 100 unit/mL (3 mL) insuli n pen 15 unit subcut TID Qty: 15 5RF Rx Instructions: Inject just prior to meals. atenolol 25 mg tablet 25 mg PO QAM Qty: 30 0RF diphenoxylate-atropine 2.5-0.025 mg tablet 1 tab PO BID PRN (Reason: Severe Diarrhea) hydroxyzine HCl 25 mg tablet 25 mg PO Q6 PRN (Reason: Itching) ketoconazole 2 % shampoo 1 applic TOPICAL DIRECTED levofloxacin 500 mg Tablet 500 mg PO DAILY@1100 Qty: 30 0RF lidocaine 4 % Adhesive Patch,Medicated 1 patch TOPICAL BID PRN (Reason: Pain) Discharge Orders: Discharge Order (Routine); Ordered 03/01/25 Ordered By: Malcolm Zepeda/Other Patient Handouts: Managing Type 2 Diabetes Admission Data Admit Date/Time: 02/13/25 03:00 Attending Provider: Malcolm Lala Admit Provider: Suhas Fonseca Primary Care Provider: Tarun Herrera Other Providers: Suhas Fonseca; Malcolm Lala; Swetha Morataya Prentiss; Adam Yadav; Aneesh Frias; Raul Medina; Paulette Nolen; Sara Holt; Tiesha Chou; Mikey Wen; Tiesha Renteria; Satish Louie; Ascencion Crane; Seth Jefferson; Tarun Bales; Hanh Arcos; Eliceo Ramirez; Jackson Mcdaniels; Vani Babb; Bharat Dillard; Lala Escobedo; Aissatou Groves; Tarun Crews; Catalina Johnson; Elder Drake; Janet Howard.; José Miguel Valle; Mercedes Hinson; Carmela Luna; Christ Dugan; Ninfa Lawton; [facility],No Attending
== END 2025-03-01 15:45 | DRG 539 ==
LOC: ED 21:18 → EDINP 02-13 03:00 → SUATTDRO 02-13 03:00 → 2W 02-13 03:33 → 2S 02-23 12:12